=== PATIENT | female | born 1950 | race Caucasian/White ===

== ENCOUNTER 2016-11-15 00:13 | Inpatient (IN) | payer BC ==
[~2016-11-15] VITALS: Ht 157.5 cm; Wt 70.0 kg
[2016-11-15] MEDS ORDERED: SOD CHLORIDE 0.9% 1,000 ML IV ONE (00:30)
[2016-11-15 02:13] LABS: ADD SCAN DIFF NO
--- NOTE | 2016-11-15 02:20 | RADRPT ---
PROCEDURE: XR Chest. CLINICAL INDICATION: Sepsis. TECHNIQUE: Single frontal chest x-ray. COMPARISON: 10/12/2016 FINDINGS: Tracheostomy tube is unchanged. Right internal jugular central line with tip at the right atrium is unchanged. Left subclavian biventricular pacemaker is present. There are surgical clips overlying the left axilla.. Heart is mildly enlarged.. There is no CHF. There is hypoventilation with sligh t increase in bibasilar probable atelectasis.. There is no pleural effusion. There is no pneumotho rax. Bones are osteopenic.. IMPRESSION: Hypoventilation with slight increase in bibasilar atelectasis. Otherwise no change. RPTAT: HMVK .Thierry Senior MD, MD Date Time Electronically viewed and signed by .Thierry Senior MD, on 11/15/2016 02:19 .K/
[2016-11-15 02:23] LABS: BASOPHILS % 0.3 % (0.0-2.0); EOSINOPHILS # 0.1 10^3/ul (0.0-0.5); EOSINOPHILS % 0.8 % (0.0-7.0); HEMATOCRIT 26.6 % (37.0-47.0); HEMOGLOBIN 8.1 g/dl (12.0-16.0); LYMPHOCYTES # 1.9 10^3/ul (0.8-2.9); LYMPHOCYTES % 13.2 % (15.0-51.0); MEAN CORPUSCULAR HEMOGLOBIN 28.5 pg (29.0-33.0); MEAN CORPUSCULAR HGB CONC 30.5 g/dl (32.0-37.0); MEAN CORPUSCULAR VOLUME 93.7 fl (82.0-101.0); MEAN PLATELET VOLUME 11.2 fl (7.4-10.4); MONOCYTE # 1.2 10^3/ul (0.3-0.9); MONOCYTES % 8.5 % (0.0-11.0); NEUTROPHIL # 10.7 10^3/ul (1.6-7.5); NEUTROPHILS % 76.6 % (39.0-77.0); PLATELET COUNT 239 10^3/UL (140-415); RED BLOOD COUNT 2.84 10^6/ul (4.20-5.40); RED CELL DISTRIBUTION WIDTH 17.7 % (11.5-14.5)
[2016-11-15 02:31] LABS: INR 1.84; PROTIME 21.4 Sec (12.2-14.2); PT RATIO 1.7
[2016-11-15 02:32] LABS: PARTIAL THROMBOPLASTIN TIME 45.1 Sec (25.0-35.0)
[2016-11-15 02:35] LABS: ALBUMIN 3.6 g/dl (3.3-4.9)
[2016-11-15 02:36] LABS: POTASSIUM 3.5 mmol/L (3.5-5.1)
[2016-11-15 02:36] LABS: ADD UMIC YES; URINE BILIRUBIN (Dip) NEGATIVE (NEGATIVE); URINE BLOOD (Dip) 3+ (NEGATIVE); URINE COLOR YELLOW (YELLOW); URINE GLUCOSE (Dip) NEGATIVE (NEGATIVE); URINE KETONES (Dip) NEGATIVE (NEGATIVE); URINE LEUKOCYTE ESTERASE (Dip) 3+ (NEGATIVE); URINE NITRITE (Dip) NEGATIVE (NEGATIVE); URINE TOTAL PROTEIN (Dip) 4+ (NEGATIVE); URINE UROBILINOGEN (Dip) 0.2 E.U./dL (0.1-1.0)
[2016-11-15 02:38] LABS: ALBUMIN/GLOBULIN RATIO 0.94; BILIRUBIN,INDIRECT 0.1 mg/dl (0-1.1); BILIRUBIN,TOTAL 0.1 mg/dl (0.2-1.3); CREATININE 2.16 mg/dl (0.44-1.00); TOTAL PROTEIN 7.4 g/dl (6.1-8.1)
[2016-11-15 02:39] LABS: CALCIUM 8.2 mg/dl (8.4-10.2)
[2016-11-15 02:48] LABS: TROPONIN-I 0.063 ng/ml (0.00-0.12)
[2016-11-15 02:56] LABS: BACTERIA,URINE FEW; SQUAMOUS EPITHELIAL CELL,UR OCCASIONAL; URINE RBCS >50 /HPF (0)
--- NOTE | 2016-11-15 04:43 | ERA ---
ER Documentation Chief Complaint Date/Time DATE: 11/15/16 TIME: 04:41 Chief Complaint from [place],hypotension, SBP reported in the 60s,trach on vent HPI This is a 66-year-old female that is a direct admit to the intensive care unit from [facility]. Unfortunately no beds in the ICU this time, patient will be reported in the ER. Primary care doctor made aware. ROS All systems reviewed and are negative except as per history of present illness. Medications Home Meds No Active Prescriptions or Reported Meds Allergies Allergies: Coded Allergies: erythromycin base (Verified Allergy, Unknown, 11/15/16) morphine (Verified Allergy, Unknown, 11/15/16) vancomycin (Verified Allergy, Unknown, 11/15/16) PMhx/Soc History of Surgery: Yes (vinh masectomy) Hx Respiratory Disorders: Yes (ARDS, PNA) Hx Cardiac Disorders: Yes (CHF, pacemaker, 1st degree block) Hx Alcohol Use: No Hx Substance Use: No Hx Tobacco Use: No Smoking Status: Unknown if ever smoked Physical Exam Vitals Vital Signs Date Time Temp Pulse Resp B/P Pulse Ox O2 Delivery O2 Flow Rate FiO2 11/15/16 04:38 77 16 98/52 97 Trach Collar 11/15/16 03:40 80 16 103/57 90 Room Air 11/15/16 03:10 71 17 93 50 11/15/16 01:05 80 19 97 50 11/15/16 00:25 98.1 79 12 73/54 95 11/15/16 00:15 82 17 96 50 Physical Exam Const: [] Head: Atraumatic Eyes: Normal Conjunctiva ENT: Normal External Ears, Nose and Mouth. Neck: Full range of motion..~ No meningismus. Resp: Clear to auscultation bilaterally Cardio: Regular rate and rhythm, no murmurs Abd: Soft, non tender, non distended. Normal bowel sounds Skin: No petechiae or rashes Back: No midline or flank tenderness Ext: No cyanosis, or edema Neur: Awake and alert Psych: Normal Mood and Affect Result Diagram: 11/15/16 0115 11/15/16 0115 Results 24 hrs Laboratory Tests Test 11/15/16 01:15 11/15/16 01:50 White Blood Count 14.010^3/ul Red Blood Count 2.8410^6/ul Hemoglobin 8.1g/dl Hematocrit 26.6% Mean Corpuscular Volume 93.7fl Mean Corpuscular Hemoglobin 28.5pg Mean Corpuscular Hemoglobin Concent 30.5g/dl Red Cell Distribution Width 17.7% Platelet Count 16102^3/UL Mean Platelet Volume 11.2fl Neutrophils % 76.6% Lymphocytes % 13.2% Monocytes % 8.5% Eosinophils % 0.8% Basophils % 0.3% Nucleated Red Blood Cells % 0.0/100WBC Neutrophils # 10.710^3/ul Lymphocytes # 1.910^3/ul Monocytes # 1.210^3/ul Eosinophils # 0.110^3/ul Basophils # 0.010^3/ul Nucleated Red Blood Cells # 0.010^3/ul Prothrombin Time 21.4Sec Prothrombin Time Ratio 1.7 INR International Normalized Ratio 1.84 Activated Partial Thromboplast Time 45.1Sec Sodium Level 144mmol/L Potassium Level 3.5mmol/L Chloride Level 100mmol/L Carbon Dioxide Level 27mmol/L Anion Gap 21 Blood Urea Nitrogen 60mg/dl Creatinine 2.16mg/dl Glucose Level 112mg/dl Lactic Acid Level 1.0mmol/L Calcium Level 8.2mg/dl Total Bilirubin 0.1mg/dl Direct Bilirubin 0.00mg/dl Indirect Bilirubin 0.1mg/dl Aspartate Amino Transf (AST/SGOT) 22IU/L Alanine Aminotransferase (ALT/SGPT) 27IU/L Alkaline Phosphatase 86IU/L Troponin I 0.063ng/ml Total Protein 7.4g/dl Albumin 3.6g/dl Globulin 3.80g/dl Albumin/Globulin Ratio 0.94 Urine Color YELLOW Urine Clarity CLOUDY Urine pH 6.5 Urine Specific [place] 1.020 Urine Ketones NEGATIVE Urine Nitrite NEGATIVE Urine Bilirubin NEGATIVE Urine Urobilinogen 0.2 E.U./dL Urine Leukocyte Esterase 3+ Urine Microscopic RBC >50/HPF Urine Microscopic WBC >200/HPF Urine Squamous Epithelial Cells OCCASIONAL Urine Bacteria FEW Urine Hemoglobin 3+ Urine Glucose NEGATIVE% Urine Total Protein 4+ Current Medications Medications (Trade) Dose Ordered Sig/Jennifer Route PRN Reason Start Time Stop Time Status Last Admin Dose Admin Sodium Chloride (NS) 1,000 ml @ 1,000 mls/hr Q1H ONCE IV 11/15/16 00:30 11/15/16 01:29 DC 11/15/16 02:32 Procedures/MDM EKG: Rate/Rhythm: Normal Sinus Rhythm QRS, ST, T-waves: No changes consistent w/ acute ischemia Impression: No evidence of ischemia or arrhythmia Chest X-ray 1V Interpreted by me: Soft Tissue: No acute abnormalities Bones: No acute abnormalities Mediastinum/Cardiac Silhouette/Lungs: No acute abnormalities Medical decision-makin-year-old who came in initially for hypotension. Blood pressures normalized here in the emergency department. With fluid resuscitation patient is doing better. Patient voiding and ER awaiting ICU bed. Critical Care: Time: 45 minutes Treatments/Evaluations: Close monitoring and treatment of unstable vital signs, cardiorespiratory, and neurologic status, while maintaining tight balance of fluid, respiratory, and cardiac interventions. Departure Diagnosis: Primary Impression: Hypotension Qualified Code: I95.9 - Hypotension, unspecified hypotension type Condition: Serious ARMANDO JERRY November 15, 2016 04:43
--- NOTE | 2016-11-15 09:31 | QN ---
Documentation Comment The patient is no longer hypotensive and will be downgraded from ICU admission to telemetry. The patient has been in the ER for a number of hours awaiting a bed as there is no ICU bed available. VI WOODS MD November 15, 2016 09:31
[2016-11-15] MEDS ORDERED: ACETAMINOPHEN 325 MG TAB PO PRN (10:30)
[2016-11-15] MEDS ORDERED: ONDANSETRON 4 MG INJ IV PRN (10:30)
[2016-11-15] MEDS ORDERED: PIPER-TAZO 3.375 GM IV (PMX) 100 ML IVPB ONE (11:00)
[2016-11-15] MEDS ORDERED: NACL 0.9% 3 ML SYG IV SCH (11:00)
[2016-11-15] MEDS ORDERED: DILT120C65 PO (11:08)
[2016-11-15] MEDS ORDERED: METO-429 PO (11:08)
[2016-11-15] MEDS ORDERED: ACET160O41 GTB (11:09)
[2016-11-15] MEDS ORDERED: ALBU2.5V3 NEB (11:09)
[2016-11-15] MEDS ORDERED: AMIO200T2 GTB (11:10)
[2016-11-15] MEDS ORDERED: BISA5TAB6 GTB (11:11)
[2016-11-15] MEDS ORDERED: APIX2.5T GTB (11:11)
[2016-11-15] MEDS ORDERED: ESCI5TAB GTB (11:13)
[2016-11-15] MEDS ORDERED: NOVO3I SC (11:16)
[2016-11-15] MEDS ORDERED: LANT3I SC (11:20)
[2016-11-15] MEDS ORDERED: LACT1CAP57 GTB (11:21)
[2016-11-15] MEDS ORDERED: LANS30CA GTB (11:22)
[2016-11-15] MEDS ORDERED: METO-407 GTB (11:23)
[2016-11-15] MEDS ORDERED: MULTI GTB (11:24)
[2016-11-15] MEDS ORDERED: RISE150T3 GTB (11:25)
[2016-11-15] MEDS ORDERED: MYL80 GTB (11:25)
--- NOTE | 2016-11-15 12:08 | RADRPT ---
PROCEDURE: CT Brain without. CLINICAL INDICATION: Encephalopathy. TECHNIQUE: A CT of the brain was performed on multidetector high-resolution CT scanner utilizing a xial sections from the skull base through the vertex without contrast. The scan was reviewed in sof t tissue brain and high frequency resolution bone algorithm windows. Images were reviewed on a high -resolution PACS workstation. One or more the following does reduction techniques were utilized: Aut omated exposure control, adjustment of the mA/ or kV according to patient's size, or use of iterativ e reconstruction technique. The exam CTDI = 44.83 mGy and the DLP = 720.23 mGy-cm. COMPARISON: Brain CT 10/28/2016. FINDINGS: The ventricles and sulci are mildly to moderately prominent indicative of volume loss. There is no i ntracranial hemorrhage, mass effect or midline shift. No abnormal intra-axial or extra-axial fluid collections are seen. The larios/white matter differentiation is preserved. There are moderate to marked foci of hypoattenuation in the white matter, which are nonspecific in e tiology but likely reflect chronic small vessel ischemic changes. There are moderate intracranial v ascular calcifications consistent with atherosclerosis. The visualized paranasal sinuses are essenti ally clear. There is thinning of bilateral lens indicative of prior lens replacement. IMPRESSION: 1. No acute intracranial hemorrhage, transcortical infarction or mass effect. Please note MRI is mo re sensitive for detection of acute ischemia and can be obtained as clinically warranted. 2. Moderate intracranial atherosclerosis and moderate to marked chronic small vessel ischemic gonzales es. 3. Mild to moderate generalized cerebral volume loss. RPTAT: EE .Jani Gutierrez MD, Date Time Electronically viewed and signed by .Jani Gutierrez MD, MD on 11/15/2016 12:08 .N/
--- NOTE | 2016-11-15 12:09 | HP ---
DATE OF ADMISSION: 11/15/2016 CHIEF COMPLAINT: Hypotension, respiratory failure. HISTORY OF PRESENT ILLNESS: This is a 66-year-old female with a past medical history of breast canc er status post bilateral mastectomy in 1992, who initially presented to [facility] for resp iratory failure secondary to pneumonia. The patient during that hospital course, underwent trach an d PEG and was complicated with C. diff colitis and was treated with vancomycin. The patient was the n transferred to [facility] for continued care where she was treated for ARDS, pulmonary edema. T he patient went into acute renal failure, was started initially on hemodialysis. The patient develo ped critical care polyneuropathy and had an EMG which confirmed diagnosis. The patient's course was further complicated at [facility] due to bacteremia with Staph hominis and E. coli. The patient also d eveloped DIC and thrombocytopenia before being stabilized. The patient was then transferred to [facility] where she was receiving care, was being weaned off ventilatory support. The p atient was stable until yesterday where she had an episode of emesis. The patient was subsequently believed to have aspirated. She became hypotensive and she was transferred to [facility] Room for continued care. In the emergency room, the patient was given a course of bolus of normal saline with improvement of her blood pressure. The patient was not started on pressor suppor t. The patient was placed back on full ventilatory support. Upon my evaluation of the patient at this time, she is lethargic but appears to be stable. There lopez ve been no reports of hemoptysis, hematemesis or hematochezia. PAST MEDICAL HISTORY: As stated above, history of acute kidney injury, history of ventilator depend ent respiratory failure, history of dysphagia, status post PEG, history of ARDS, history of breast c ancer, history of atrial fibrillation. PAST SURGICAL HISTORY: Status post trach, status post PEG, status Perm-A-Cath placement. FAMILY HISTORY: Noncontributory. SOCIAL HISTORY: No alcohol use. MEDICATIONS: The patient's medications have been reviewed. ALLERGIES: LISTED BEEN REVIEWED. REVIEW OF SYSTEMS: Unable to do adequately review system as the patient is vent dependent. Pertine nt positives obtained by reviewing medical records, speaking to hospital staff, stated in HPI, other schneider negative. PHYSICAL EXAMINATION: VITAL SIGNS: Blood pressure is 105/58, respirations 16, pulse 72, temperature 97.8. HEENT: Head is normocephalic. NECK: Supple. HEART: Regular rate. LUNGS: Show diminished breath sounds at the base. ABDOMEN: Soft, nontender to palpation. Positive PEG. EXTREMITIES: Negative for clubbing, cyanosis, no edema. DERMATOLOGIC: No rashes. MUSCULOSKELETAL: No joint effusions. NEUROLOGIC: No change in exam. No obvious focal deficits. LABORATORY DATA: Showed sodium 144, potassium 3.5, BUN 60, creatinine 2.16. White count 14.0, hemo globin 9.1, hematocrit 26.6, platelet count 239. Chest x-ray shows a hypoventilation with increased atelectasis, lactic acid levels within normal orozco its. ASSESSMENT AND PLAN: This is a 66-year-old female who presents with: 1. Hypertension, etiology is unclear, possible volume depletion, sepsis, cardiac. Plan at this poi nt is to do a full evaluation. Will check blood cultures, urine cultures, chest x-ray. We will con tinue patient on IV fluids. Will start broad spectrum antibiotics. Will check a CT head to rule ou t cerebrovascular accident. Will monitor patient on telemetry. Will check serial troponins. We wi ll place also a consult for Infectious Disease and cardiology for evaluation. 2. Ventilator dependent respiratory failure. The patient's vent settings have been reviewed. Will continue to monitor, place a pulmonary consult for vent management. 3. Encephalopathy, acute. Etiology is likely secondary to toxic metabolic hemodynamics. A CT scan of the head will be obtained to rule out acute cerebrovascular accident. Will continue current infe ctious workup and monitor closely. 4. Dysphagia, status post percutaneous endoscopic gastrostomy. Will resume tube feeding. 5. Acute kidney injury with a history of chronic kidney disease. Patient is currently on intermitt ent hemodialysis. Will continue. No evidence of recovery at this time. 6. Critical care polyneuropathy. Will continue to monitor. 7. Atrial fibrillation, currently rate controlled. Continue medical management. Continue Eliquis. Continue beta louise. We will follow up with cardiology. 8. Anemia. Continue to monitor hemoglobin and hematocrit levels. 9. Mineral bone disease. Continue to monitor calcium and phosphorus levels. 10. History of breast cancer status post bilateral mastectomy. 11. Congestive heart failure. Continue medical management. 12. Diabetes. Continue Accu-Cheks and sliding scale. 13. History of Clostridium difficile colitis, status post treatment. 14. History of bacteremia from Staph hominis and ____. 9. History of candidemia. Patient has been reintroduced on caspofungin. Will follow up with infecti ous disease. 10. Gastrointestinal and deep venous thrombosis prophylaxis. Continue Protonix, Eliquis. Please note I spent 25 minutes of face to face time with the patient and the patient's daughter. Th e patient is FULL CODE. Dictated By: CHARLIE ESPINOSA/SEEMA Conf#: [id number] DID#: [id number]
[2016-11-15] MEDS: PIPER-TAZO 3.375 GM IV (PMX) 100 ML IVPB SCH ×2 (12:36→23:03)
--- NOTE | 2016-11-15 12:40 | CONS ---
Date/Time of Note Date/Time of Note DATE: 11/15/16 TIME: 12:35 Assessment/Plan Assessment/Plan Additional Assessment/Plan Chest x-ray was reviewed from today which is essentially clear. Current ventilator settings are AC of 10, tidal volume 500, PEEP of 0, 50% FiO2. Urinalysis is grossly positive for UTI. Assessment recommendations; 1. Patient admitted for hypotension possibly from underlying sepsis. Source likely is urinary tract infection versus line sepsis. 2. Respiratory failure, now requiring invasive mechanical ventilation. 3. Other comorbidities include chronic renal failure, possibly some element of encephalopathy, history of atrial fibrillation, currently in sinus rhythm though. 4. Hypotension with interval improvement after being given a fluid bolus. Not requiring any pressor support. Add Zyvox 600 mg IV every 12 hours. Continue current supportive measures. Further antibiotic adjustment to be done once culture results are obtained. Consultation Date/Type/Reason Admit Date/Time Date of Consultation: November 15, 2016 Type of Consultation: Pulmonary/critical care Reason for Consultation Pulmonary consultations obtained for evaluation and treatment of respiratory failure. History presenting illness; patient is a 66-year-old white lady who has been receiving care at [facility], the patient became hypotensive earlier this morning and had to be transferred to ER. The patient was given a fluid bolus with stabilization of blood pressure, not requiring any pressor support. History was obtained from medical records. Patient is unable to give any history whatsoever apparently from some element of encephalopathy. Past medical history; 1. Patient with history of respiratory failure, due to ARDS pneumonia, patient apparently was weaned off to T-piece but not requiring full ventilator support. 2. History of breast cancer, status post bilateral mastectomies. 3. History of paroxysmal atrial fibrillation, currently in sinus rhythm. 4. Chronic renal failure, on hemodialysis. 5. Anemia. 6. Post G-tube and tracheostomy. Medications; were reviewed. Allergies; R to vancomycin and erythromycin. Social history; most of any alcohol tobacco or drug abuse. Family history; not available. Occupational history; not available. Review of systems; unable to be obtained. General exam; elderly woman, on ventilator via tracheostomy somewhat arousable. Currently in no distress. Social History Smoking Status: Unknown if ever smoked Exam/Review of Systems Vital Signs Vitals Vital Signs Date Time Temp Pulse Resp B/P Pulse Ox O2 Delivery O2 Flow Rate FiO2 11/15/16 11:35 71 14 98/54 95 Mechanical Ventilator 11/15/16 07:12 97.8 11/15/16 07:00 75 Exam HEENT exam is; supple neck, tracheostomy in place. No thyromegaly. No neck bruits. Patient is edentulous. Has bilateral intraocular lens implants. No neck masses. No lymphadenopathy. No thyromegaly. Chest examination; clear to auscultation. S1-S2 audible, no murmurs. Regular rhythm. There is a pacemaker in the left chest wall. There is a hemodialysis catheter in the right subclavian area. Multiple bilateral anterior chest wall scars are present from prior mastectomies. Abdomen examination; soft, G-tube in place. Bowel sounds audible. No organomegaly. Abdomen is nondistended. Extremity exam is; no peripheral edema. Next ASSISTANT BUYER examination; patient remains minimally responsive. Results Result Diagram: 11/15/16 0115 11/15/16 0115 Results 24 hrs Laboratory Tests Test 11/15/16 01:15 11/15/16 01:50 11/15/16 04:37 11/15/16 11:00 White Blood Count 14.0 #H Red Blood Count 2.84 #L Hemoglobin 8.1 #L Hematocrit 26.6 #L Mean Corpuscular Volume 93.7 Mean Corpuscular Hemoglobin 28.5 L Mean Corpuscular Hemoglobin Concent 30.5 L Red Cell Distribution Width 17.7 H Platelet Count 239 # Mean Platelet Volume 11.2 H Neutrophils % 76.6 Lymphocytes % 13.2 L Monocytes % 8.5 Eosinophils % 0.8 Basophils % 0.3 Nucleated Red Blood Cells % 0.0 Neutrophils # 10.7 H Lymphocytes # 1.9 Monocytes # 1.2 H Eosinophils # 0.1 Basophils # 0.0 Nucleated Red Blood Cells # 0.0 Prothrombin Time 21.4 #H Prothrombin Time Ratio 1.7 INR International Normalized Ratio 1.84 Activated Partial Thromboplast Time 45.1 H Sodium Level 144 Potassium Level 3.5 Chloride Level 100 Carbon Dioxide Level 27 Anion Gap 21 H Blood Urea Nitrogen 60 #H Creatinine 2.16 H Glucose Level 112 Lactic Acid Level 1.0 1.4 1.6 Calcium Level 8.2 L Total Bilirubin 0.1 L Direct Bilirubin 0.00 Indirect Bilirubin 0.1 Aspartate Amino Transf (AST/SGOT) 22 Alanine Aminotransferase (ALT/SGPT) 27 Alkaline Phosphatase 86 Troponin I 0.063 Total Protein 7.4 Albumin 3.6 Globulin 3.80 H Albumin/Globulin Ratio 0.94 Urine Color YELLOW Urine Clarity CLOUDY Urine pH 6.5 Urine Specific [place] 1.020 Urine Ketones NEGATIVE Urine Nitrite NEGATIVE Urine Bilirubin NEGATIVE Urine Urobilinogen 0.2 E.U./dL Urine Leukocyte Esterase 3+ H Urine Microscopic RBC >50 Urine Microscopic WBC >200 Urine Squamous Epithelial Cells OCCASIONAL Urine Bacteria FEW Urine Hemoglobin 3+ H Urine Glucose NEGATIVE Urine Total Protein 4+ H Medications Medications Current Medications Pantoprazole (Protonix Tab) 40 mg DAILY@06 PO ; Start 11/16/16 at 06:00 Heparin Sodium (Porcine) 5000 unit 5,000 unit Q12 SC ; Start 11/15/16 at 21:00 Piperacillin Sod/ Tazobactam Sod (Zosyn 3.375gm/ 100 ml (Pmx)) 100 ml @ 200 mls /hr Q8 IVPB ; Start 11/15/16 at 11:30 JUSTIN LINARES November 15, 2016 12:40
--- NOTE | 2016-11-15 13:31 | CONS ---
Date/Time of Note Date/Time of Note DATE: 11/15/16 TIME: 13:31 Assessment/Plan Assessment/Plan Chief Complaint/Hosp Course asked to consult. patient seen and examined. full note to follow. thanks d/w rn and julianne sumner. d/w er nursing and family/patient. Problems: Consultation Date/Type/Reason Admit Date/Time Initial Consult Date 11/15/16 Type of Consultation: id Exam/Review of Systems Vital Signs Vitals Vital Signs Date Time Temp Pulse Resp B/P Pulse Ox O2 Delivery O2 Flow Rate FiO2 11/15/16 12:40 71 20 108/56 94 Mechanical Ventilator 11/15/16 07:12 97.8 11/15/16 07:00 75 Results Result Diagram: 11/15/16 0115 11/15/16 0115 Results 24 hrs Laboratory Tests Test 11/15/16 01:15 11/15/16 01:50 11/15/16 04:37 11/15/16 11:00 White Blood Count 14.0 #H Red Blood Count 2.84 #L Hemoglobin 8.1 #L Hematocrit 26.6 #L Mean Corpuscular Volume 93.7 Mean Corpuscular Hemoglobin 28.5 L Mean Corpuscular Hemoglobin Concent 30.5 L Red Cell Distribution Width 17.7 H Platelet Count 239 # Mean Platelet Volume 11.2 H Neutrophils % 76.6 Lymphocytes % 13.2 L Monocytes % 8.5 Eosinophils % 0.8 Basophils % 0.3 Nucleated Red Blood Cells % 0.0 Neutrophils # 10.7 H Lymphocytes # 1.9 Monocytes # 1.2 H Eosinophils # 0.1 Basophils # 0.0 Nucleated Red Blood Cells # 0.0 Prothrombin Time 21.4 #H Prothrombin Time Ratio 1.7 INR International Normalized Ratio 1.84 Activated Partial Thromboplast Time 45.1 H Sodium Level 144 Potassium Level 3.5 Chloride Level 100 Carbon Dioxide Level 27 Anion Gap 21 H Blood Urea Nitrogen 60 #H Creatinine 2.16 H Glucose Level 112 Lactic Acid Level 1.0 1.4 1.6 Calcium Level 8.2 L Total Bilirubin 0.1 L Direct Bilirubin 0.00 Indirect Bilirubin 0.1 Aspartate Amino Transf (AST/SGOT) 22 Alanine Aminotransferase (ALT/SGPT) 27 Alkaline Phosphatase 86 Troponin I 0.063 Total Protein 7.4 Albumin 3.6 Globulin 3.80 H Albumin/Globulin Ratio 0.94 Urine Color YELLOW Urine Clarity CLOUDY Urine pH 6.5 Urine Specific [place] 1.020 Urine Ketones NEGATIVE Urine Nitrite NEGATIVE Urine Bilirubin NEGATIVE Urine Urobilinogen 0.2 E.U./dL Urine Leukocyte Esterase 3+ H Urine Microscopic RBC >50 Urine Microscopic WBC >200 Urine Squamous Epithelial Cells OCCASIONAL Urine Bacteria FEW Urine Hemoglobin 3+ H Urine Glucose NEGATIVE Urine Total Protein 4+ H Medications Medications Current Medications Pantoprazole (Protonix Tab) 40 mg DAILY@06 PO ; Start 11/16/16 at 06:00 Heparin Sodium (Porcine) 5000 unit 5,000 unit Q12 SC ; Start 11/15/16 at 21:00 Piperacillin Sod/ Tazobactam Sod 100 ml @ 200 mls/hr Q8 IVPB Last administered on 11/15/16t 12:36; Admin Dose 200 MLS/HR; Start 11/15/16 at 11:30 Linezolid (Zyvox 600mg/D5W (Pmx)) 300 ml @ 300 mls/hr Q12 IVPB ; Start 11/15/16 at 14:00 RUBY ROY MD November 15, 2016 13:31
--- NOTE | 2016-11-15 14:01 | RADRPT ---
Echocardiogram Report Patient Name: CINTIA PORTILLO Gender: Female Date: 1950 Study Date: 15-Nov-2016 Apple Picker: Chaitanya Baldwin RDCS Location: 5 Ref. Physician: KIAH MAYS Quality: Adequate Procedures: Transthoracic echocardiogram with complete 2D, M-Mode, and doppler examination. Indications: Shock. 2D/M Mode Doppler Measurement Value Normal Ranges Measurement Value Normal Ranges LVIDd 2D 4.5 3.5 - 5.6 cm AV Peak Prasanna 2.1 m/sec LVIDs 2D 3.3 2.1 - 4.1 cm AV Peak PG 17.5 mmHg LVPWd 2D 1.1 0.6 - 1.1 cm AI Peak PG 15.4 mmHg IVSd 2D 1.0 0.6 - 1.1 cm AI Peak Prasanna 2.0 m/sec AoR Diam 2D 2.0 2.0 - 3.7 cm AI PHT 869.3 msec EDV 2D 93.7 cm3 LVOT Peak Prasanna 0.8 m/sec ESV 2D 37.0 cm3 LVOT Peak PG 2.6 mmHg LA Dimen 2D 4.1 2.3 - 4.0 cm MV E Peak Prasanna 0.7 m/sec MV A Peak Prasanna 0.8 m/sec MV E/A 0.8 MV Decel Time 170 msec MV Decel Dane 4 MV E/A 0.8 TR Peak Prasanna 2.6 m/sec TR Peak PG 28.9 mmHg RVSP 59.0 mmHg Findings Left Ventricle: Normal left ventricular systolic function. Normal left ventricular cavity size. Mild concentric left ventricular hypertrophy. Ejection fraction is visually estimated at 55 %. Tissue Doppler/Mitral Doppler indices are consistent with impaired relaxation (Stage I diastolic dysfunction). Right Ventricle: Normal right ventricular size. Normal right ventricular systolic function. Linear artifact in right ventricle suggestive of catheter, pacer lead, or ICD lead. Left Atrium: There is mild enlargement of left atrium. Right Atrium: The right atrium is normal in size. Mitral Valve: Mitral valve leaflets appear mildly thickened. Moderate mitral annular calcification. Trace mitral regurgitation. Aortic Valve: Mild aortic stenosis. Aortic cusps appear moderately calcified. Mild aortic valve regurgitation. Tricuspid Valve: Normal appearance of the tricuspid valve. Estimated peak PA systolic pressure 51 mmHg. There is mild to moderate tricuspid regurgitation. Pulmonic Valve: Pulmonic valve not well visualized. Pericardium: Normal pericardium with no significant pericardial effusion. Aorta: Normal aortic root. IVC: Inferior vena cava without respiratory collapse, however, patient on ventilator. Conclusions 1.Normal left ventricular systolic function. Normal left ventricular cavity size. Mild concentric left ventricular hypertrophy. Ejection fraction is visually estimated at 55 %. Tissue Doppler/Mitral Doppler indices are consistent with impaired relaxation (Stage I diastolic dysfunction). 2.There is mild enlargement of left atrium. 3.Mitral valve leaflets appear mildly thickened. Moderate mitral annular calcification. Trace mitral regurgitation. 4.Normal appearance of the tricuspid valve. Estimated peak PA systolic pressure 51 mmHg. There is mild to moderate tricuspid regurgitation. 5.Mild aortic stenosis. Aortic cusps appear moderately calcified. Mild aortic valve regurgitation. Electronically Signed By: Kiah Mays 15-Nov-2016 14:00:30 -0700 Patient Name: CINTIA PORTILLO Study Date: 15-Nov-2016 [id number]
--- NOTE | 2016-11-15 14:03 | CONS ---
DATE OF ADMISSION: 11/15/2016 DATE OF CONSULTATION: 11/15/2016 INFECTIOUS DISEASE CONSULTATION REASON FOR CONSULTATION: Antibiotic management. HISTORY OF PRESENT ILLNESS: Claudia Regalado is a 66-year-old female who comes in with hypotension a nd respiratory failure, is being seen for antibiotic management. Her past problems include: 1. History of breast cancer status post bilateral mastectomy in 1992. She initially presented to [facility] for respiratory failure secondary to pneumonia. She underwent tracheostomy and a G-tube placement complicated with C difficile colitis and was treated with oral vancomycin. She th en was transferred to [facility] for continued care. She was treated for adult respiratory distre ss syndrome and pulmonary edema. She went into acute renal failure requiring hemodialysis. She the n developed critical care polyneuropathy and an EMG which confirmed the diagnosis. Her course was a lso complicated secondary to bacteremia from Staph hominis and E coli. She also developed DIC and t hrombocytopenia before being stabilized. She was transferred to [facility] and was b eing weaned off ventilatory support and stable until yesterday the when she had an episode of em esis. She was thought to have aspirated and became hypotensive and was transferred to [facility] for continued care. She was given a bolus of normal saline with improvement o f her blood pressure, was not started on pressor support, and was put back on ventilator support, an d will be admitted to the intensive care unit. PAST MEDICAL HISTORY: Operations as outlined, status post tracheostomy, status post PEG, status pos t PermCath placement. FAMILY HISTORY: Noncontributory. SOCIAL HISTORY: She does not smoke, drink, or abuse drugs. ALLERGIES: NONE TO PENICILLIN, SULFA, OR FOODS. MEDICATIONS: Per chart. REVIEW OF SYSTEMS: Noncontributory. She is ventilator dependent. PHYSICAL EXAMINATION: GENERAL: The patient is a chronically ill-appearing female who is awake, responsive, in no acute di stress. VITAL SIGNS: Stable. She is afebrile. SKIN: Without generalized rash. HEENT: Within normal limits. NECK: Supple. Tracheostomy in place. LYMPH NODES: None palpable. CHEST: Decreased breath sounds at the bases. HEART: Without murmur or gallop. ABDOMEN: Soft, nontender without organosplenomegaly or masses. G-tube in place without exudate. EXTREMITIES: Without cyanosis, clubbing, or edema. RECTAL AND GENITAL: Deferred. NEUROLOGIC: No focal neurological abnormality. ANCILLARY LABORATORY DATA: White count was 14,000, H and H 9.1 and 26.6, platelet count 239,000. B UN and creatinine were 60 and 2.16. Chest x-ray shows hypoventilation with increased atelectasis. Lactic acid level within normal limits. In conclusion, my assessment is hypotension, probably relat ed to volume depletion, sepsis, and possibly cardiac. Blood cultures and urine cultures were done. The patient was started on linezolid and Zosyn. CT scan of the brain and echocardiogram were done. The CT scan of the brain showed no acute intracranial hemorrhage, transcortical infarction, or mas s effect. MRI is more sensitive for detection of acute ischemia, moderate intracranial atherosclero sis, and volume loss. Her chest x-ray showed hyperventilation, slight increase in bibasilar atelect asis, otherwise no change. IMPRESSION AND PLAN: The patient was begun, as noted, on linezolid and Zosyn. We will await the cu lture reports which will be done. I will dictate my findings to Dr. Ndiaye, Dr. Mays, Dr. Gaines. Dictated By: JENNY RICHEY MD, JD/SEEMA Conf#: [id number] DID#: [id number]
[2016-11-15 15:13] LABS: ADD SCAN DIFF NO
[2016-11-15 15:17] LABS: ABNORMAL IP MESSAGE 1; BASOPHIL # 0.1 10^3/ul (0.0-0.1); BASOPHILS % 0.3 % (0.0-2.0); EOSINOPHILS # 0.2 10^3/ul (0.0-0.5); EOSINOPHILS % 1.3 % (0.0-7.0); HEMATOCRIT 27.2 % (37.0-47.0); LYMPHOCYTES # 2.2 10^3/ul (0.8-2.9); LYMPHOCYTES % 13.4 % (15.0-51.0); MEAN CORPUSCULAR HEMOGLOBIN 27.7 pg (29.0-33.0); MEAN CORPUSCULAR HGB CONC 29.4 g/dl (32.0-37.0); MEAN CORPUSCULAR VOLUME 94.1 fl (82.0-101.0); MEAN PLATELET VOLUME 11.5 fl (7.4-10.4); MONOCYTE # 1.7 10^3/ul (0.3-0.9); MONOCYTES % 9.9 % (0.0-11.0); NEUTROPHIL # 12.4 10^3/ul (1.6-7.5); NEUTROPHILS % 74.3 % (39.0-77.0); PLATELET COUNT 202 10^3/UL (140-415); RED BLOOD COUNT 2.89 10^6/ul (4.20-5.40); RED CELL DISTRIBUTION WIDTH 17.9 % (11.5-14.5); WHITE BLOOD COUNT 16.7 10^3/ul (4.8-10.8)
--- NOTE | 2016-11-15 15:26 | CONS ---
DATE OF ADMISSION: 11/15/2016 DATE OF CONSULTATION: 11/15/2016 TYPE OF CONSULTATION: Cardiology. REFERRING PHYSICIAN: Dr. Ndiaye. REASON FOR CONSULTATION: Atrial fibrillation. CHIEF COMPLAINT: Hypotension. HISTORY OF PRESENT ILLNESS: Thank you for this referral. History obtained from the patient's chart , extensive review of the old chart, discussion with Dr. Ndiaye, discussion with the staff and phys hang. This is a 66-year-old unfortunate female with multiple complicated medical history who was transferred from [facility] due to hypotension. The patient has been in [facility]. She was noted overnight to be hypotensive, unresponsive to IV fluids and transferred to emergency room. In the em ergency room, she has been receiving with IV fluids. Currently, blood pressure has improved and so far has not required to be on pressors. The patient is not able to provide any history to me. Art es any chest pain or pressure to me. PAST MEDICAL HISTORY: The patient has a history of breast cancer status post bilateral mastectomy i 1992. Recently admitted to [facility] for respiratory failure secondary to pneumonia. During the hos pital course had a complicated course including Clostridium difficile colitis and tachycardia with t racheostomy and PEG placement. She was transferred to [facility] for higher level of care. Noted in ER to have CHF versus pulmonary edema, renal failure and decide to be dialyzed. She also has critical care polyneuropathy which was confirmed by EMG apparently. Has had multiple infections. SAHIL done at [facility] and review of the old chart did not show any evidence of endocarditis. She also h as history of paroxysmal atrial fibrillation on anticoagulation. She has been transferred to [facility] and to ICU this morning. SURGICAL HISTORY: Tracheostomy, PEG placement and PermCath placement. FAMILY HISTORY: No reported coronary artery disease. SOCIAL HISTORY: The patient with no alcohol use as far as we can see. ALLERGIES: 1. ERYTHROMYCIN. 2. MORPHINE. 3. VANCOMYCIN. MEDICATIONS: Per medication reconciliation, personally reviewed. REVIEW OF SYSTEMS: Unable to obtain except for above-mentioned. PHYSICAL EXAMINATION: VITAL SIGNS: Temperature 97.8, blood pressure has been in the 70s. Most recent one is 111/57, hear t rate of 71, respiratory rate of 18. HEENT: Normocephalic, atraumatic. EYES: Pupils are equal. Oropharynx very poor oral dentition. NECK: Neck is supple. CARDIOVASCULAR: Regular rate and rhythm, systolic murmur. PULMONARY: Mild diffuse rhonchi. GASTROINTESTINAL: Soft, nontender. EXTREMITIES: Trivial edema. NEUROLOGIC: Awake, appears to follow basic commands, but unable to answer my questions. LABORATORY: WBC of 14, hemoglobin 8.1, hematocrit 39. Sodium 144, potassium 3.5, BUN of 60, creati nine 2.12, glucose 112. Echocardiogram was done and was personally reviewed, which showed ejection fraction estimated about 55%. PA pressure elevated consistent with pulmonary hypertension, PA pres sure was 51 mmHg. Mild AI, mild to moderate TR noted as well. EKG showed normal sinus rhythm at th is point. ASSESSMENT AND PLAN: 1. Severe hypotension and shock, possibly at least partially related to hypovolemia, currently impr burak with IV fluids. 2. Hypoxemia respiratory failure. 3. History of paroxysmal atrial fibrillation, currently in sinus. 4. Status post bacteremia. 5. History of renal failure, intermittently has received dialysis. 6. Severe anemia. 7. History of breast carcinoma status post bilateral mastectomy. 8. Fluid overload and congestive heart failure secondary to diastolic dysfunction. 9. History of Clostridium difficile. 9. History of candidemia. RECOMMENDATIONS: Head CT was done in the ER which showed no acute intracranial hemorrhage. IV flui d has been given. Patient's blood pressure currently improved. Antibiotic is managed as per ID rec ommendation. Vent support will be continued. Off all blood pressure medication for now given her s evere hypotension. Will continue to monitor her. Electrolytes to be corrected as well. More than 38 minutes of critical care time was spent in management of this patient excluding any pro cedures. Dictated By: KIAH RAINES/SEEMA Conf#: [id number] DID#: [id number] CC: CHARLIE NDIAYE DO;*EndCC*
[2016-11-15 15:30] LABS: POTASSIUM 4.1 mmol/L (3.5-5.1)
[2016-11-15 15:33] LABS: CREATININE 2.52 mg/dl (0.44-1.00)
[2016-11-15 15:34] LABS: CALCIUM 8.3 mg/dl (8.4-10.2)
[2016-11-15 15:59] LABS: MAGNESIUM 2.2 mg/dl (1.7-2.5)
[2016-11-15] MEDS: LINEZOLID 600 MG/D5W (PMX) 300 ML IVPB SCH ×2 (16:10→23:03)
--- NOTE | 2016-11-15 16:37 | CONS ---
Date/Time of Note Date/Time of Note DATE: 11/15/16 TIME: 16:31 Assessment/Plan Assessment/Plan Chief Complaint/Hosp Course 1. Septic shock 2. vdrf 3. multiple chronic medical problems R: 1. cont. broad spect abx 2. f/u cárdenas cx 3. critical care. Problems: Consultation Date/Type/Reason Admit Date/Time Date of Consultation: November 15, 2016 Type of Consultation: id Reason for Consultation abx recommendations Referring Provider: YAYO EDGAR DO Hx of Present Illness Dear Dr. Edgar, Thanks for consulting. This is an unfortunate 66 yo female with a complicated pmh of breast ca s/p bilateral mastectomy, hx of PNA, cdiff colitis, resp failure, ards, recently at [facility] for weaning. She recently began to decompensate and was transferred to [facility] er. Patient is unable to provide any hx at this point. patient unable to provide Past Medical History as per [facility] Social History Smoking Status: Unknown if ever smoked Exam/Review of Systems Vital Signs Vitals Vital Signs Date Time Temp Pulse Resp B/P Pulse Ox O2 Delivery O2 Flow Rate FiO2 11/15/16 14:36 71 18 111/57 100 Mechanical Ventilator 11/15/16 07:12 97.8 11/15/16 07:00 75 Exam Constitutional: non-verbal Psych: confusion Head: atraumatic, normocephalic Eyes: EOMI, PERRL, nl conjunctiva, nl lids, nl sclera Respiratory: clear to auscultation, normal air movement Cardiovascular: regular rate and rhythm Gastrointestinal: non-tender, soft Results Result Diagram: 11/15/16 1510 11/15/16 1510 Results 24 hrs Laboratory Tests Test 11/15/16 01:15 11/15/16 01:50 11/15/16 04:37 11/15/16 11:00 White Blood Count 14.0 #H Red Blood Count 2.84 #L Hemoglobin 8.1 #L Hematocrit 26.6 #L Mean Corpuscular Volume 93.7 Mean Corpuscular Hemoglobin 28.5 L Mean Corpuscular Hemoglobin Concent 30.5 L Red Cell Distribution Width 17.7 H Platelet Count 239 # Mean Platelet Volume 11.2 H Neutrophils % 76.6 Lymphocytes % 13.2 L Monocytes % 8.5 Eosinophils % 0.8 Basophils % 0.3 Nucleated Red Blood Cells % 0.0 Neutrophils # 10.7 H Lymphocytes # 1.9 Monocytes # 1.2 H Eosinophils # 0.1 Basophils # 0.0 Nucleated Red Blood Cells # 0.0 Prothrombin Time 21.4 #H Prothrombin Time Ratio 1.7 INR International Normalized Ratio 1.84 Activated Partial Thromboplast Time 45.1 H Sodium Level 144 Potassium Level 3.5 Chloride Level 100 Carbon Dioxide Level 27 Anion Gap 21 H Blood Urea Nitrogen 60 #H Creatinine 2.16 H Glucose Level 112 Lactic Acid Level 1.0 1.4 1.6 Calcium Level 8.2 L Total Bilirubin 0.1 L Direct Bilirubin 0.00 Indirect Bilirubin 0.1 Aspartate Amino Transf (AST/SGOT) 22 Alanine Aminotransferase (ALT/SGPT) 27 Alkaline Phosphatase 86 Troponin I 0.063 Total Protein 7.4 Albumin 3.6 Globulin 3.80 H Albumin/Globulin Ratio 0.94 Urine Color YELLOW Urine Clarity CLOUDY Urine pH 6.5 Urine Specific [place] 1.020 Urine Ketones NEGATIVE Urine Nitrite NEGATIVE Urine Bilirubin NEGATIVE Urine Urobilinogen 0.2 E.U./dL Urine Leukocyte Esterase 3+ H Urine Microscopic RBC >50 Urine Microscopic WBC >200 Urine Squamous Epithelial Cells OCCASIONAL Urine Bacteria FEW Urine Hemoglobin 3+ H Urine Glucose NEGATIVE Urine Total Protein 4+ H Test 11/15/16 15:10 White Blood Count 16.7 H Red Blood Count 2.89 L Hemoglobin 8.0 L Hematocrit 27.2 L Mean Corpuscular Volume 94.1 Mean Corpuscular Hemoglobin 27.7 L Mean Corpuscular Hemoglobin Concent 29.4 L Red Cell Distribution Width 17.9 H Platelet Count 202 Mean Platelet Volume 11.5 H Neutrophils % 74.3 Lymphocytes % 13.4 L Monocytes % 9.9 Eosinophils % 1.3 Basophils % 0.3 Nucleated Red Blood Cells % 0.0 Neutrophils # 12.4 H Lymphocytes # 2.2 Monocytes # 1.7 H Eosinophils # 0.2 Basophils # 0.1 Nucleated Red Blood Cells # 0.0 Sodium Level 144 Potassium Level 4.1 Chloride Level 102 Carbon Dioxide Level 24 Anion Gap 22 H Blood Urea Nitrogen 69 H Creatinine 2.52 H Glucose Level 66 #L Calcium Level 8.3 L Magnesium Level 2.2 Alkaline Phosphatase 79 Medications Medications Current Medications Pantoprazole (Protonix Tab) 40 mg DAILY@06 PO ; Start 11/16/16 at 06:00 Heparin Sodium (Porcine) 5000 unit 5,000 unit Q12 SC ; Start 11/15/16 at 21:00 Piperacillin Sod/ Tazobactam Sod 100 ml @ 200 mls/hr Q8 IVPB Last administered on 11/15/16 12:36; Admin Dose 200 MLS/HR; Start 11/15/16 at 11:30 Linezolid (Zyvox 600mg/D5W (Pmx)) 300 ml @ 300 mls/hr Q12 IVPB Last administered on 11/15/16 16:10; Admin Dose 300 MLS/HR; Start 11/15/16 at 14:00 RUBY ROY MD November 15, 2016 16:37
[2016-11-15 20:18] VITALS: TEMP 98.3
[2016-11-15 21:36] VITALS: PULSE 62
[2016-11-15 22:00] VITALS: BP 92/58; PULSE 62; RESP 16
[2016-11-15 22:02] VITALS: RESP 10
[2016-11-15] MEDS: HEPARIN 5,000 UNIT/0.5 ML VIAL SC SCH (23:07)
[2016-11-15 23:46] VITALS: RESP 15
[2016-11-16] VITALS (32 sets, daily range): BP systolic 79–123; BP diastolic 43–80; PULSE 60–87; RESP 14–24; Ht 157.5 cm; Wt 70.0 kg
[2016-11-16] MEDS ORDERED: GLUCOSE GEL 15 GRAM TUBE PO PRN ×2 (01:30)
[2016-11-16] MEDS ORDERED: DEXTROSE 50% 50 ML SYRINGE IV PRN ×2 (01:30)
[2016-11-16] MEDS ORDERED: GLUCAGON 1 MG INJ IM PRN (01:30)
[2016-11-16] MEDS ORDERED: GLUCOSE GEL 15 GRAM TUBE BUCCAL PRN (01:30)
[2016-11-16] MEDS: INSULIN ASPART [NOVOLOG] 3 ML PEN SC SCH ×5 (04:55→20:28)
[2016-11-16] MEDS: LANSOPRAZOLE 30 MG CAP GTB SCH (05:21)
[2016-11-16] MEDS: PIPER-TAZO 3.375 GM IV (PMX) 100 ML IVPB SCH (05:22)
[2016-11-16] MEDS ORDERED: PANTOPRAZOLE (EC) 40 MG TAB PO SCH (06:00)
[2016-11-16 06:23] LABS: ADD SCAN DIFF NO
[2016-11-16 06:59] LABS: CALCIUM 8.3 mg/dl (8.4-10.2); CREATININE 2.75 mg/dl (0.44-1.00); MAGNESIUM 2.1 mg/dl (1.7-2.5); PHOSPHORUS 3.8 mg/dl (2.5-4.9); POTASSIUM 3.9 mmol/L (3.5-5.1)
[2016-11-16 08:04] LABS: BASOPHILS % 0.2 % (0.0-2.0); EOSINOPHILS # 0.4 10^3/ul (0.0-0.5); EOSINOPHILS % 3.2 % (0.0-7.0); HEMATOCRIT 23.4 % (37.0-47.0); HEMOGLOBIN 7.2 g/dl (12.0-16.0); LYMPHOCYTES # 1.5 10^3/ul (0.8-2.9); MEAN CORPUSCULAR HEMOGLOBIN 28.7 pg (29.0-33.0); MEAN CORPUSCULAR HGB CONC 30.8 g/dl (32.0-37.0); MEAN CORPUSCULAR VOLUME 93.2 fl (82.0-101.0); MEAN PLATELET VOLUME 11.7 fl (7.4-10.4); MONOCYTES % 8.4 % (0.0-11.0); NEUTROPHIL # 9.3 10^3/ul (1.6-7.5); NEUTROPHILS % 75.8 % (39.0-77.0); PLATELET COUNT 221 10^3/UL (140-415); RED BLOOD COUNT 2.51 10^6/ul (4.20-5.40); RED CELL DISTRIBUTION WIDTH 17.8 % (11.5-14.5); WHITE BLOOD COUNT 12.3 10^3/ul (4.8-10.8)
[2016-11-16] MEDS: LINEZOLID 600 MG/D5W (PMX) 300 ML IVPB SCH ×2 (08:44→20:17)
[2016-11-16] MEDS: HEPARIN 5,000 UNIT/0.5 ML VIAL SC SCH ×2 (08:47→20:22)
--- NOTE | 2016-11-16 09:15 | PN ---
DATE: 11/16/2016 SUBJECTIVE: The patient is stable overnight, no acute events noted. No hemoptysis, hematemesis or hematochezia. OBJECTIVE: VITAL SIGNS: Blood pressure is 95/47, respiration 19, pulse 69, temperature 98.3. HEENT: Head is normocephalic. NECK: Supple. HEART: Regular rate. LUNGS: Show diminished breath sounds at the base. ABDOMEN: Soft, nontender to palpation. Positive PEG. EXTREMITIES: Negative for clubbing, cyanosis, no edema. DERMATOLOGIC: No rashes. MUSCULOSKELETAL: No joint effusions. NEUROLOGIC: No change in exam. MEDICATIONS: The patient's medications have been reviewed. LABORATORY DATA: Showed sodium 141, potassium 2.9, chloride 103, BUN 76, creatinine 2.75. White co unt is 16.7, hemoglobin 8.0, hematocrit of 27.2, platelet count is 202. The patient's imaging studi es reviewed. Blood cultures are negative x2. ASSESSMENT AND PLAN: 1. Hypotension, etiology is unclear, possibly volume depletion, sepsis. The patient's blood pressu res have improved but remain low. At this point, will continue to monitor. 2. Sepsis, possibly from aspiration pneumonia. The patient is currently receiving antibiotic thera py. Cultures have been reviewed. Continue current treatment plan. Follow up with Infectious Disea se. 3. Acute encephalopathy. Etiology is likely toxic metabolic. The patient's CT scan shows no acute cerebrovascular accident. Will continue to monitor. 4. Ventilator dependent respiratory failure. Vent settings have been reviewed. ABG has been revie wed. Continue to follow up with pulmonary. 5. Dysphagia status post PEG tube, tube feeding. 6. Acute kidney injury on top of chronic kidney disease. Etiology is likely secondary to acute tubu lar necrosis. The patient is currently on hemodialysis. Will continue. 7. Critical care polyneuropathy. Continue to monitor. 8. Atrial fibrillation. Currently rate controlled. Continue medical management and follow up with Cardiology. 9. Anemia. Continue to monitor H and H levels. 10. Mineral bone disorder. Continue to monitor calcium and phosphorus levels. 11. History of breast cancer status post mastectomy. 12. History of congestive heart failure. Continue medical management. 13. Diabetes. Continue Accu-Cheks, insulin sliding scale. 14. History of Clostridium difficile. 15. History of candidemia. Continue to monitor. Follow up with Infectious Disease. 16. GI and deep vein thrombosis prophylaxis. Continue Protonix, Eliquis. Dictated By: CHARLIE ESPINOSA/SEEMA Conf#: [id number] DID#: [id number]
[2016-11-16] MEDS ORDERED: EPOETIN 10000 UNITS/1 ML INJ (ESRD) SC ONE (10:00)
--- NOTE | 2016-11-16 11:13 | CONS ---
Date/Time of Note Date/Time of Note DATE: 11/16/16 TIME: 11:09 Assessment/Plan Assessment/Plan Additional Assessment/Plan Ventilator settings; AC of 10, tidal volume 500, PEEP of 0, 40% FiO2. Assessment recommendations; 1. Patient admitted for sepsis from UTI possibly line sepsis as well with significant clinical improvement. 2. Chronic renal failure, on hemodialysis. 3. Chronic respiratory failure, now requiring invasive mechanical ventilation due to sepsis. 4. Advanced dementia. 5. History of cardiac arrhythmia. Status post pacemaker placement. 6. History of anemia. Continue current treatment. Further antibiotic adjustment to be done once culture results are obtained. Meanwhile I would recommend titrating down FiO2 to keep O2 saturation around 92-94%. Consultation Date/Type/Reason Admit Date/Time November 15, 2016 at 06:52 Initial Consult Date 11/15/16 Type of Consultation: Pulmonary Referring Provider: YAYO EDGAR DO 24 HR Interval Summary Free Text/Dictation Patient condition is stable. Has not required any pressor support. Has remained hemodynamically stable. No untoward events reported. General exam; elderly lady, on ventilator via tracheostomy currently in no distress. Patient remains essentially unresponsive. Exam/Review of Systems Vital Signs Vitals Vital Signs Date Time Temp Pulse Resp B/P Pulse Ox O2 Delivery O2 Flow Rate FiO2 11/16/16 09:10 69 11/16/16 08:20 16 95 50 11/16/16 07:25 98.3 95/47 11/16/16 05:04 Mechanical Ventilator Intake and Output 11/15/16 11/15/16 11/16/16 15:00 23:00 07:00 Intake Total 100 ml 850 ml Output Total 50 ml 50 ml Balance 100 ml -50 ml 800 ml Exam HEENT exam is; supple neck, no JVD. No lymphadenopathy. Midline trachea. No thyromegaly. Tracheostomy in place with clean insertion site. Chest exam is; diminished but clear vessel bilaterally. S1-S2 audible, no murmurs. There is a pacemaker. Abdomen examination; soft, G-tube in place. No organomegaly. Bowel sounds audible. Extremity examination; no peripheral edema. 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 Results Result Diagram: 11/16/16 0655 11/16/16 0540 Results 24 hrs Laboratory Tests Test 11/15/16 15:10 11/16/16 04:52 11/16/16 05:40 11/16/16 06:55 White Blood Count 16.7 H 12.3 #H Red Blood Count 2.89 L 2.51 L Hemoglobin 8.0 L 7.2 L Hematocrit 27.2 L 23.4 L Mean Corpuscular Volume 94.1 93.2 Mean Corpuscular Hemoglobin 27.7 L 28.7 L Mean Corpuscular Hemoglobin Concent 29.4 L 30.8 L Red Cell Distribution Width 17.9 H 17.8 H Platelet Count 202 221 Mean Platelet Volume 11.5 H 11.7 H Neutrophils % 74.3 75.8 Lymphocytes % 13.4 L 12.0 L Monocytes % 9.9 8.4 Eosinophils % 1.3 3.2 Basophils % 0.3 0.2 Nucleated Red Blood Cells % 0.0 0.0 Neutrophils # 12.4 H 9.3 H Lymphocytes # 2.2 1.5 Monocytes # 1.7 H 1.0 H Eosinophils # 0.2 0.4 Basophils # 0.1 0.0 Nucleated Red Blood Cells # 0.0 0.0 Sodium Level 144 141 Potassium Level 4.1 3.9 Chloride Level 102 103 Carbon Dioxide Level 24 24 Anion Gap 22 H 18 H Blood Urea Nitrogen 69 H 76 H Creatinine 2.52 H 2.75 H Glucose Level 66 #L 104 Calcium Level 8.3 L 8.3 L Magnesium Level 2.2 2.1 Alkaline Phosphatase 79 Bedside Glucose 108 Phosphorus Level 3.8 Test 11/16/16 08:43 Bedside Glucose 122 Medications Medications Current Medications Heparin Sodium (Porcine) 5000 unit 5,000 unit Q12 SC Last administered on 08:47; Admin Dose 5,000 UNIT; Start 11/15/16 at 21:00 Piperacillin Sod/ Tazobactam Sod 100 ml @ 200 mls/hr Q8 IVPB Last administered on 11/16/16 05:22; Admin Dose 200 MLS/HR; Start 11/15/16 at 11:30 Linezolid (Zyvox 600mg/D5W (Pmx)) 300 ml @ 300 mls/hr Q12 IVPB Last administered on 11/16/16 08:44; Admin Dose 300 MLS/HR; Start 11/15/16 at 14:00 Insulin Aspart (Novolog Insulin Pen) NOVOLOG *MILD* ALGORI... Q4 SC ; Start 04/25 at 05:00 Miscellaneous Information 1 ea NOTE XX ; Start 11/16/16 at 01:30 Glucose (Glutose) 15 gm Q15M PRN PO DECREASED GLUCOSE; Start 11/16/16 at 01:30 Glucose (Glutose) 22.5 gm Q15M PRN PO DECREASED GLUCOSE; Start 11/16/16 at 01: 30 Dextrose (D50w Syringe) 25 ml Q15M PRN IV DECREASED GLUCOSE; Start 11/16/16 at 01:30 Dextrose (D50w Syringe) 50 ml Q15M PRN IV DECREASED GLUCOSE; Start 11/16/16 at 01:30 Glucagon (Glucagen) 1 mg Q15M PRN IM DECREASED GLUCOSE; Start 11/16/16 at 01:30 Glucose (Glutose) 15 gm Q15M PRN BUCCAL DECREASED GLUCOSE; Start 11/16/16 at 01 :30 Lansoprazole (Prevacid) 30 mg DAILY@06 GTB Last administered on 11/16/16t 05:21 ; Admin Dose 30 MG; Start 11/16/16 at 06:00 JUSTIN LINARES November 16, 2016 11:12
[2016-11-16] MEDS: PIPER-TAZO 2.25 GM (PMX) 50 ML IVPB SCH ×2 (14:12→22:10)
[2016-11-16] MEDS ORDERED: ONDANSETRON 4 MG INJ IV PRN (23:30)
[2016-11-17] VITALS (23 sets, daily range): BP systolic 91–117; BP diastolic 52–58; PULSE 76–83; RESP 14–25
[2016-11-17] MEDS: INSULIN ASPART [NOVOLOG] 3 ML PEN SC SCH ×5 (01:00→18:00)
[2016-11-17] MEDS: ALBUTEROL/IPRATROPIUM (NEB) 3 ML AMP HHN SCH ×2 (05:00→06:16)
[2016-11-17] MEDS: LANSOPRAZOLE 30 MG CAP GTB SCH (05:02)
[2016-11-17] MEDS: PIPER-TAZO 2.25 GM (PMX) 50 ML IVPB SCH ×3 (05:28→22:29)
[2016-11-17] MEDS ORDERED: ALBUTEROL 18 GM INHALER INH PRN (06:30)
[2016-11-17 07:10] LABS: ADD SCAN DIFF NO
[2016-11-17 07:17] LABS: ABNORMAL IP MESSAGE 1; HEMATOCRIT 22.4 % (37.0-47.0); MEAN CORPUSCULAR HEMOGLOBIN 28.6 pg (29.0-33.0); MEAN CORPUSCULAR HGB CONC 30.8 g/dl (32.0-37.0); MEAN CORPUSCULAR VOLUME 92.9 fl (82.0-101.0); MEAN PLATELET VOLUME 11.8 fl (7.4-10.4); PLATELET COUNT 227 10^3/UL (140-415); RED BLOOD COUNT 2.41 10^6/ul (4.20-5.40); RED CELL DISTRIBUTION WIDTH 17.4 % (11.5-14.5); WHITE BLOOD COUNT 9.7 10^3/ul (4.8-10.8)
--- NOTE | 2016-11-17 07:17 | PN ---
DATE: 11/16/2016 CARDIOLOGY FOLLOWUP PROGRESS NOTE SUBJECTIVE: Discussed with the staff and with Dr. Ndiaye. Rhythm strip was reviewed. The patient remains in sinus rhythm. Status post tracheostomy on the vent. Blood pressure on the low but remai janessa stable off of any pressors. He is still on the vent. MEDICATIONS: Reviewed as per medication reconciliation, personally reviewed. PHYSICAL EXAMINATION: VITAL SIGNS: Temperature 98.3, heart rate of 64, blood pressure 95/47, respiration rate of 16, satu rating 95%. HEENT: Normocephalic, atraumatic. Thin female. Status post tracheostomy, on the vent. CARDIOVASCULAR: Regular rate and rhythm, systolic murmur. PULMONARY: With no wheezes anteriorly, mild rhonchi. GASTROINTESTINAL: Soft, nontender. EXTREMITIES: With no significant lower extremity edema. NEUROLOGIC: Awake, responds more appropriately now. PSYCHIATRIC: Appears to be calm and pleasant. LABORATORY: Echocardiogram was done yesterday which was personally reviewed, showed ejection fracti on about 55%. Left atrial enlargement. Mild aortic stenosis noted. Aortic cusp appeared to be mod erately calcified with mild regurgitation. Laboratory shows WBC of 12.3, hemoglobin 7.2, platelets of 221. Sodium 141, potassium 3.9, BUN of 76, creatinine 2.75, glucose 104. ASSESSMENT AND PLAN: 1. Shock/hypotension probably at least partially related to hypovolemia, plus/minus sepsis. 2. Hypoxemia and hypercapnic respiratory failure, status post tracheostomy, on the vent dependent, history of paroxysmal atrial fibrillation, currently in sinus rhythm. 3. Status post bacteremia on multiple infections. Antibiotic as per ID recommendation. 4. Renal failure, status post dialysis. 5. Severe anemia. 6. History of breast carcinoma status post bilateral mastectomy. 7. History of fluid overload and congestive heart failure secondary to diastolic dysfunction and fl uid overload, currently appeared to be stable, with history of C difficile. 8. . RECOMMENDATIONS: Antibiotic is managed as per ID's recommendation. We will continue the vent suppo rt. Dialysis as needed. Transfusion p.r.n. to be done as well. Monitor on telemetry closely. Natividad ctrolytes will be collected as needed. Dictated By: KIAH RAINES/SEEMA Conf#: [id number] DID#: [id number] CC: CHARLIE NDIAYE DO;*End*
[2016-11-17 07:29] LABS: HEMOGLOBIN 6.9 g/dl (12.0-16.0)
[2016-11-17 07:44] LABS: CALCIUM 8.5 mg/dl (8.4-10.2); CREATININE 2.05 mg/dl (0.44-1.00); PHOSPHORUS 2.6 mg/dl (2.5-4.9); POTASSIUM 3.4 mmol/L (3.5-5.1)
[2016-11-17] MEDS ORDERED: SOD CHLORIDE 0.9% 250 ML IV* ONE (08:07)
[2016-11-17] MEDS ORDERED: ONDANSETRON 4 MG INJ IV PRN (08:30)
--- NOTE | 2016-11-17 08:36 | PN ---
DATE: 11/17/2016 CARDIOLOGY FOLLOWUP SUBJECTIVE: Discussed with the staff, discussed with Dr. Ndiaye. Rhythm strip was reviewed. The patient remains in sinus rhythm. No episodes of atrial fibrillation noted. Status post tracheostom y and still on the vent. Blood pressure has remained overall stable, on the low side, but is stable though. MEDICATIONS: Reviewed as per medication reconciliation, personally reviewed. PHYSICAL EXAMINATION: VITAL SIGNS: Temperature 98.5, heart rate of 79, blood pressure 104/52, respiratory rate of 40, sat urating 98%. GENERAL: Elderly looking thin female. Appears older than stated age. HEENT: Normocephalic, atraumatic. Eyes: Pupils equal and round. NECK: Supple. Tracheostomy, on the vent. CARDIOVASCULAR: Regular rate and rhythm, systolic murmur. PULMONARY: With no wheezes heard, minimal rhonchi at the base. GASTROINTESTINAL: Soft, nontender. EXTREMITIES: With trivial edema of lower extremity. NEUROLOGIC: Awake and follows commands. PSYCHIATRIC: Appears to be calm. LABORATORY: WBC of 9.7, hemoglobin of 6.9, platelets of 227. Sodium 139, potassium 3.4, BUN of 48, creatinine 2.05, glucose of 108. ASSESSMENT AND PLAN: 1. Shock, hypotension, at least partially related to hypovolemia and anemia. Possibly sepsis as we ll. Currently, blood pressure has improved. 2. Hypoxemic ____ respiratory failure, status post tracheostomy, vent dependent. 3. History of paroxysmal atrial fibrillation, currently remains in sinus rhythm. 4. Status post bacteremia, on multiple antibiotics. 5. Renal failure, on dialysis. 6. Severe anemia. 7. History of breast carcinoma. 8. History of fluid overload, congestive heart failure, diastolic dysfunction, secondary to above, currently appears to be stable. 9. History of Clostridium difficile colitis. RECOMMENDATIONS: Hemodialysis will be continued and managed as per renal. Antibiotic is being cont inued and managed as per ID recommendations. Diabetic control will be continued. DVT prophylaxis w ill be continued. The patient is not anticoagulated due to her severe anemia. Consider transfusion as well given her marked anemia. Continue to monitor on telemetry. Vent support will be continued . Dictated By: KIAH GARCIA MD AV/SEEMA Conf#: [id number] DID#: [id number] CC: CHARLIE NDIAYE DO;*EndCC*
[2016-11-17 08:37] LABS: IRON 44 ug/dl (35-150)
[2016-11-17] MEDS: LINEZOLID 600 MG/D5W (PMX) 300 ML IVPB SCH ×2 (08:37→22:29)
[2016-11-17] MEDS: HEPARIN 5,000 UNIT/0.5 ML VIAL SC SCH ×2 (08:40→22:35)
[2016-11-17 08:46] LABS: TOTAL IRON BINDING CAPACITY 169 ug/dl (241-421)
[2016-11-17] MEDS ORDERED: POTASSIUM CHLORIDE 20 MEQ POWDER FOR ORAL SOLN GTB ONE (09:00)
--- NOTE | 2016-11-17 09:31 | PN ---
DATE: 11/17/2016 SUBJECTIVE: The patient had hemodialysis yesterday of approximately 2 liters, was stopped due to hy potension. Overnight, the patient had 1 episode of emesis. No other acute events noted. There hav e been no reports of any hemoptysis, hematemesis, or hematochezia. OBJECTIVE: VITAL SIGNS: Blood pressure 104/52, respirations 14, pulse 79, temperature 98.5. HEENT: Head is normocephalic. NECK: Supple. HEART: Regular rate. LUNGS: Show diminished breath sounds at the base. ABDOMEN: Soft, nontender to palpation, no rebound or guarding. EXTREMITIES: Negative for clubbing, cyanosis, no edema. DERMATOLOGIC: No rashes. MUSCULOSKELETAL: No joint effusions. NEUROLOGIC: No change in exam. MEDICATIONS: The patient's medications have been reviewed. LABORATORY DATA: Shows sodium 139, potassium 3.4, chloride 103, BUN 48, creatinine 2.05. White cou nt 9.7, hemoglobin 6.9, hematocrit 22.4, platelet count is 227. The patient's urine culture is posi tive for gram-negative rods. Blood culture is negative. ASSESSMENT AND PLAN: 1. Sepsis, etiology is likely multifactorial from urinary tract infection, possible aspiration pneu monia. The patient's cultures have been reviewed. Continue current antibiotic regimen and follow u p with infectious disease. 2. Hypertension. Etiology may be multifactorial secondary to sepsis, hyperkalemia. The patient wi ll receive 2 units of PRBCs today. Will minimize ultrafiltration with dialysis. Continue IV antibi otics to treat underlying sepsis. 3. Anemia. Etiology is likely from underlying chronic kidney disease; however, we will rule out ga strointestinal sources. Will check iron panel, stool for occult blood. Will transfuse 2 units of P RBCs. Will continue Epogen with hemodialysis. Monitor closely. 4. Acute encephalopathy, etiology is toxic metabolic. The patient's mental status appears to be re turning to baseline. 5. Ventilator dependent respiratory failure. Vent settings have been reviewed. ABG has been revie mon. Continue to monitor. Follow up with pulmonary. 6. Dysphagia status post percutaneous endoscopic gastrostomy. Continue tube feeding. 7. Acute kidney injury on top of chronic kidney disease, etiology secondary to acute tubular necros is. The patient is currently dialysis dependent, anticipates hemodialysis tomorrow. 8. History of critical care polyneuropathy. Continue to monitor. 9. Atrial fibrillation, currently rate controlled. Continue medical management. Follow up with ca rdiology. 10. Mineral bone disorder. Continue to monitor calcium and phosphorus levels. 11. History of breast cancer status post mastectomy. 12. History of congestive heart failure. Continue medical management. 13. Diabetes. Continue Accu-Cheks and insulin sliding scale. 14. History of congestive heart failure. 15. History of candidemia. 16. Gastrointestinal and deep venous thrombosis prophylaxis. Continue Protonix and heparin. Dictated By: CHARLIE ESPINOSA/NTS Conf#: [id number] DID#: [id number]
--- NOTE | 2016-11-17 10:42 | RADRPT ---
PROCEDURE: XR Chest. CLINICAL INDICATION: Shortness of breath. TECHNIQUE: Single frontal view. COMPARISON: 11/15/2016. FINDINGS: The tracheostomy tube, right arm PICC line, tunneled right internal jugular vein dialysis catheter, and dual lead permanent pacemaker are all once again noted and appears satisfactory. Surgical clips are present overlying both axillary regions. The heart is mildly enlarged. There is calcification in the aorta consistent with atherosclerosis. There is mild atelectasis at the lung bases, worse th an seen previously. There is no pleural effusion or pneumothorax. IMPRESSION: 1. Worse appearance of the lung bases. 2. No other change from 11/15/2016. RPTAT: QQ .Jeff Ring MD, MD Date Time Electronically viewed and signed by .Jeff Ring MD, MD on 11/17/2016 10:42 .R/
[2016-11-17] MEDS ORDERED: ALTEPLASE (CATHFLO) 2 MG INJ CATHETER ONE (12:00)
--- NOTE | 2016-11-17 12:45 | CONS ---
Date/Time of Note Date/Time of Note DATE: 11/17/16 TIME: 12:42 Consult Date/Type/Reason Admit Date/Time November 15, 2016 at 06:52 Initial Consult Date 11/15/16 Type of Consultation: Pulmonary Ordering Provider: YAYO EDGAR DO Subjective Patient appears comfortable at rest no acute distress Objective Vital Signs Date Time Temp Pulse Resp B/P Pulse Ox O2 Delivery O2 Flow Rate FiO2 11/17/16 12:00 76 11/17/16 11:12 98.6 20 105/54 98 11/17/16 11:05 50 11/16/16 22:11 Mechanical Ventilator Intake and Output 11/16/16 11/16/16 11/17/16 15:00 23:00 07:00 Intake Total 1300 ml 510 ml Output Total 300 ml Balance 1000 ml 510 ml Exam PHYSICAL EXAMINATION GENERAL: Elderly lady on mechanical ventilation appears comfortable at rest VITAL SIGNS: see below. HEENT: Pupils equal, round, and reactive to light. Tracheostomy site clean and intact. CARDIAC: S1, S2, 1/6 systolic ejection murmur CHEST: Diminished air entry bilaterally. ABDOMEN: Mildly distended. Bowel sounds present no guarding or rebound EXTREMITIES: No cyanosis, clubbing edema +1 NEUROLOGIC: Generalized weakness Results/Medications Result Diagram: 11/17/16 0630 11/17/16 0630 Results 24 hrs Laboratory Tests Test 11/16/16 13:14 11/16/16 17:47 11/16/16 20:27 11/17/16 00:58 Bedside Glucose 118 120 105 111 Test 11/17/16 04:48 11/17/16 06:30 11/17/16 08:34 11/17/16 11:57 Bedside Glucose 130 107 117 White Blood Count 9.7 # Red Blood Count 2.41 L Hemoglobin 6.9 *L Hematocrit 22.4 L Mean Corpuscular Volume 92.9 Mean Corpuscular Hemoglobin 28.6 L Mean Corpuscular Hemoglobin Concent 30.8 L Red Cell Distribution Width 17.4 H Platelet Count 227 Mean Platelet Volume 11.8 H Sodium Level 139 Potassium Level 3.4 L Chloride Level 103 Carbon Dioxide Level 27 Anion Gap 12 Blood Urea Nitrogen 48 #H Creatinine 2.05 H Glucose Level 108 Calcium Level 8.5 Phosphorus Level 2.6 Magnesium Level 2.0 Iron Level 44 Total Iron Binding Capacity 169 L Percent Iron Saturation 26 Ferritin 617.0 H Medications Current Medications Heparin Sodium (Porcine) 5000 unit 5,000 unit Q12 SC Last administered on 08:40; Admin Dose 5,000 UNIT; Start 11/15/16 at 21:00 Linezolid (Zyvox 600mg/D5W (Pmx)) 300 ml @ 300 mls/hr Q12 IVPB Last administered on 11/17/16 08:37; Admin Dose 300 MLS/HR; Start 11/15/16 at 14:00 Miscellaneous Information 1 ea NOTE XX ; Start 11/16/16 at 01:30 Glucose (Glutose) 15 gm Q15M PRN PO DECREASED GLUCOSE; Start 11/16/16 at 01:30 Glucose (Glutose) 22.5 gm Q15M PRN PO DECREASED GLUCOSE; Start 11/16/16 at 01: 30 Dextrose (D50w Syringe) 25 ml Q15M PRN IV DECREASED GLUCOSE; Start 11/16/16 at 01:30 Dextrose (D50w Syringe) 50 ml Q15M PRN IV DECREASED GLUCOSE; Start 11/16/16 at 01:30 Glucagon (Glucagen) 1 mg Q15M PRN IM DECREASED GLUCOSE; Start 11/16/16 at 01:30 Glucose 15 gm 15 gm Q15M PRN BUCCAL DECREASED GLUCOSE; Start 11/16/16 at 01:30 Piperacillin Sod/ Tazobactam Sod (Zosyn 2.25gm/ 50ml (Pmx)) 50 ml @ 200 mls/hr Q8 IVPB Last administered on 11/17/16 05:28; Admin Dose 200 MLS/HR; Start 04/25 at 14:00 Lansoprazole (Prevacid) 30 mg BID@06,18 PO ; Start 11/17/16 at 18:00 Ondansetron HCl (Zofran Inj) 4 mg Q4H PRN IV NAUSEA AND/OR VOMITING; Start 05/26 at 08:30 Insulin Aspart (Novolog Insulin Pen) NOVOLOG *MILD* ALGORI... Q6 SC ; Start 05/26 at 12:00 Assessment/Plan Chief Complaint/Hosp Course Assessment 1. Patient admitted for sepsis from UTI possibly line sepsis as well with significant clinical improvement. 2. Chronic renal failure, on hemodialysis. 3. Chronic respiratory failure, now requiring invasive mechanical ventilation due to sepsis. 4. Advanced dementia. 5. History of cardiac arrhythmia. Status post pacemaker placement. 6. History of anemia 7. Worsening hemoglobin Plan 1. Continue mechanical ventilation 2. Consider transfusion packed red blood cells during hemodialysis 3. Continue tube feeding 4. Anticipate transfer back to [facility] soon Problems: RHONDA BUENROSTRO MD, [facility] November 17, 2016 12:44
[2016-11-17 13:16] LABS: EOSINOPHILS # 0.4 10^3/ul (0.0-0.5); LYMPHOCYTES # 1.7 10^3/ul (0.8-2.9); MONOCYTE # 0.2 10^3/ul (0.3-0.9); NEUTROPHIL # 7.2 10^3/ul (1.6-7.5)
[2016-11-17] MEDS: LANSOPRAZOLE 30 MG CAP PO SCH (18:16)
[2016-11-18] VITALS (31 sets, daily range): BP systolic 100–125; BP diastolic 52–64; PULSE 77–95; RESP 15–27
[2016-11-18] MEDS: INSULIN ASPART [NOVOLOG] 3 ML PEN SC SCH ×4 (01:46→18:00)
[2016-11-18] MEDS: LANSOPRAZOLE 30 MG CAP PO SCH ×2 (06:27→18:39)
[2016-11-18] MEDS: PIPER-TAZO 2.25 GM (PMX) 50 ML IVPB SCH ×3 (06:27→21:11)
[2016-11-18 07:20] LABS: ADD SCAN DIFF NO; BASOPHIL # 0.1 10^3/ul (0.0-0.1); BASOPHILS % 0.5 % (0.0-2.0); EOSINOPHILS # 0.5 10^3/ul (0.0-0.5); EOSINOPHILS % 4.6 % (0.0-7.0); HEMATOCRIT 30.5 % (37.0-47.0); HEMOGLOBIN 9.6 g/dl (12.0-16.0); LYMPHOCYTES # 1.5 10^3/ul (0.8-2.9); LYMPHOCYTES % 14.2 % (15.0-51.0); MEAN CORPUSCULAR HEMOGLOBIN 28.9 pg (29.0-33.0); MEAN CORPUSCULAR HGB CONC 31.5 g/dl (32.0-37.0); MEAN CORPUSCULAR VOLUME 91.9 fl (82.0-101.0); MEAN PLATELET VOLUME 11.7 fl (7.4-10.4); MONOCYTE # 1.1 10^3/ul (0.3-0.9); MONOCYTES % 10.7 % (0.0-11.0); NEUTROPHIL # 7.1 10^3/ul (1.6-7.5); PLATELET COUNT 242 10^3/UL (140-415); RED BLOOD COUNT 3.32 10^6/ul (4.20-5.40); RED CELL DISTRIBUTION WIDTH 17.6 % (11.5-14.5); WHITE BLOOD COUNT 10.3 10^3/ul (4.8-10.8)
[2016-11-18 08:15] LABS: CREATININE 2.73 mg/dl (0.44-1.00); MAGNESIUM 2.1 mg/dl (1.7-2.5); PHOSPHORUS 2.6 mg/dl (2.5-4.9); POTASSIUM 3.8 mmol/L (3.5-5.1)
--- NOTE | 2016-11-18 09:20 | PN ---
DATE: 11/18/2016 SUBJECTIVE: Yesterday, the patient underwent blood transfusion, tolerated well. No other acute elvira nts noted. No hemoptysis, hematemesis or hematochezia. OBJECTIVE: VITAL SIGNS: Blood pressure 112/56, respiration 17, pulse 82, temperature 98.6. HEENT: Head is normocephalic. NECK: Supple. HEART: Regular rate. LUNGS: Show diminished breath sounds at the base. ABDOMEN: Soft, nontender to palpation. No rebound or guarding. EXTREMITIES: Negative for clubbing, cyanosis, or edema. DERMATOLOGIC: No rashes. MUSCULOSKELETAL: No joint effusions. NEUROLOGIC: No change in exam. MEDICATIONS: The patient's medications have been reviewed. LABORATORY DATA: Shows white count 10.3, hemoglobin 9.6, hematocrit 30.5, platelet count 242. Sodi um 139, potassium 3.9, chloride 103, BUN 6, creatinine 2.73. IMAGING: The patient's chest x-ray was reviewed worsening lung atelectasis at the base. The patien t's cultures have been reviewed. ASSESSMENT AND PLAN: 1. Sepsis, etiology is likely secondary to urinary tract infection, possible aspiration pneumonia. The patient is clinically improving. Continue current antibiotic regimen, follow up with infectiou s disease for further recommendations. 2. Hypotension. Etiology may be secondary to sepsis and volume depletion. The patient is status p ost blood transfusion. Blood pressures have improved. Continue to monitor. 3. Anemia. The patient is status post blood transfusion. Continue to monitor H and H levels. Con tinue Epogen with dialysis. Rule out any gastrointestinal bleed. Stool for OB is pending. 4. Acute encephalopathy, etiology is toxic metabolic. Continue to monitor. 5. Ventilator dependent respiratory failure. Vent settings have been reviewed. ABG has been revie wed. Follow up with Pulmonary. 6. Dysphagia status post PEG tube, tube feed. 7. Acute kidney injury on top of chronic kidney disease. Etiology secondary to acute tubular necro sis. The patient is currently on intermittent hemodialysis. Anticipate dialysis today after 3 hour s, 2K bath, calcium 2.5. 8. Atrial fibrillation, currently rate controlled. Continue medical management and follow up cardi ology. 9. Mineral bone disorder. Continue to monitor calcium and phosphorus levels. 10. History of critical care polyneuropathy. Continue to monitor. 11. History of breast cancer status post mastectomy. 12. History of congestive heart failure. Continue current medical management. 13. Diabetes. Continue Accu-Cheks and sliding scale. 14. History of candidemia. 14. Gastrointestinal and deep venous thrombosis prophylaxis. Continue Protonix and heparin. DISPOSITION: A [facility] evaluation has been placed and will transfer once a bed is available. Dictated By: CHARLIE ESPINOSA/NTS Conf#: [id number] DID#: [id number]
[2016-11-18] MEDS: LINEZOLID 600 MG/D5W (PMX) 300 ML IVPB SCH ×2 (12:32→21:20)
[2016-11-18] MEDS: EPOETIN 4000 UNITS/1 ML INJ (ESRD) SC SCH (12:34)
[2016-11-18] MEDS: HEPARIN 5,000 UNIT/0.5 ML VIAL SC SCH ×2 (12:36→21:12)
--- NOTE | 2016-11-18 14:54 | CONS ---
Date/Time of Note Date/Time of Note DATE: 11/18/16 TIME: 14:53 Consult Date/Type/Reason Admit Date/Time November 15, 2016 at 06:52 Initial Consult Date 11/15/16 Type of Consultation: Pulmonary Ordering Provider: YAYO EDGAR DO Subjective Patient appears comfortable this morning awake alert and oriented Objective Vital Signs Date Time Temp Pulse Resp B/P Pulse Ox O2 Delivery O2 Flow Rate FiO2 11/18/16 13:05 89 23 95 50 11/18/16 11:40 97.6 103/53 11/16/16 22:11 Mechanical Ventilator Intake and Output 11/17/16 11/17/16 11/18/16 15:00 23:00 07:00 Intake Total 300 ml 1250 ml 600 ml Output Total 101 ml Balance 300 ml 1250 ml 499 ml Exam PHYSICAL EXAMINATION GENERAL: Elderly lady on mechanical ventilation appears comfortable at rest VITAL SIGNS: see below. HEENT: Pupils equal, round, and reactive to light. Tracheostomy site clean and intact. CARDIAC: S1, S2, 1/6 systolic ejection murmur CHEST: Diminished air entry bilaterally. ABDOMEN: Mildly distended. Bowel sounds present no guarding or rebound EXTREMITIES: No cyanosis, clubbing edema +1 NEUROLOGIC: Generalized weakness Results/Medications Result Diagram: 11/18/16 0625 11/18/16 0625 Results 24 hrs Laboratory Tests Test 11/17/16 16:50 11/17/16 17:32 11/18/16 01:39 11/18/16 06:19 Stool Occult Blood POSITIVE Bedside Glucose 120 169 123 Test 11/18/16 06:25 11/18/16 12:23 White Blood Count 10.3 Red Blood Count 3.32 #L Hemoglobin 9.6 #L Hematocrit 30.5 #L Mean Corpuscular Volume 91.9 Mean Corpuscular Hemoglobin 28.9 L Mean Corpuscular Hemoglobin Concent 31.5 L Red Cell Distribution Width 17.6 H Platelet Count 242 Mean Platelet Volume 11.7 H Neutrophils % 69.0 Lymphocytes % 14.2 L Monocytes % 10.7 Eosinophils % 4.6 Basophils % 0.5 Nucleated Red Blood Cells % 0.0 Neutrophils # 7.1 Lymphocytes # 1.5 Monocytes # 1.1 H Eosinophils # 0.5 Basophils # 0.1 Nucleated Red Blood Cells # 0.0 Sodium Level 139 Potassium Level 3.8 Chloride Level 103 Carbon Dioxide Level 24 Anion Gap 16 Blood Urea Nitrogen 61 H Creatinine 2.73 H Glucose Level 116 Calcium Level 9.0 Phosphorus Level 2.6 Magnesium Level 2.1 Bedside Glucose 151 Medications Current Medications Heparin Sodium (Porcine) 5000 unit 5,000 unit Q12 SC Last administered on 12:36; Admin Dose 5,000 UNIT; Start 11/15/16 at 21:00 Linezolid (Zyvox 600mg/D5W (Pmx)) 300 ml @ 300 mls/hr Q12 IVPB Last administered on 11/18/16 12:32; Admin Dose 300 MLS/HR; Start 11/15/16 at 14:00 Miscellaneous Information 1 ea NOTE XX ; Start 11/16/16 at 01:30 Glucose (Glutose) 15 gm Q15M PRN PO DECREASED GLUCOSE; Start 11/16/16 at 01:30 Glucose (Glutose) 22.5 gm Q15M PRN PO DECREASED GLUCOSE; Start 11/16/16 at 01: 30 Dextrose (D50w Syringe) 25 ml Q15M PRN IV DECREASED GLUCOSE; Start 11/16/16 at 01:30 Dextrose (D50w Syringe) 50 ml Q15M PRN IV DECREASED GLUCOSE; Start 11/16/16 at 01:30 Glucagon (Glucagen) 1 mg Q15M PRN IM DECREASED GLUCOSE; Start 11/16/16 at 01:30 Glucose 15 gm 15 gm Q15M PRN BUCCAL DECREASED GLUCOSE; Start 11/16/16 at 01:30 Piperacillin Sod/ Tazobactam Sod (Zosyn 2.25gm/ 50ml (Pmx)) 50 ml @ 200 mls/hr Q8 IVPB Last administered on 11/18/16 06:27; Admin Dose 200 MLS/HR; Start 04/25 at 14:00 Lansoprazole (Prevacid) 30 mg BID@06,18 PO Last administered on 11/18/16 06:27 ; Admin Dose 30 MG; Start 11/17/16 at 18:00 Ondansetron HCl (Zofran Inj) 4 mg Q4H PRN IV NAUSEA AND/OR VOMITING; Start 05/26 at 08:30 Insulin Aspart (Novolog Insulin Pen) NOVOLOG *MILD* ALGORI... Q6 SC Last administered on 5/12/17at 12:38; Admin Dose 1 UNIT; Start 11/17/16 at 12:00 Assessment/Plan Chief Complaint/Hosp Course Assessment 1. Patient admitted for sepsis from UTI possibly line sepsis as well with significant clinical improvement. 2. Chronic renal failure, on hemodialysis. 3. Chronic respiratory failure, now requiring invasive mechanical ventilation due to sepsis. 4. Advanced dementia. 5. History of cardiac arrhythmia. Status post pacemaker placement. 6. History of anemia Plan 1. Continue mechanical ventilation, now for weaning 2. Status post transfusion stable 3. Continue tube feeding 4. Anticipate transfer back to [facility] soon Problems: RHONDA BU[facility]ROSTRO MD, [facility] November 18, 2016 14:53
--- NOTE | 2016-11-18 17:30 | PN ---
DATE: 11/18/2016 SUBJECTIVE: Cardiology followup note. Discussed with the staff, discussed with the patient's daugh maurizio. Rhythm strip was reviewed. The patient with no chest pain or pressure. Appears more awake an d alert, responds more appropriately today. Complains of pain in the neck at the site of the trache ostomy. MEDICATIONS: Reviewed in medication reconciliation, personally reviewed. PHYSICAL EXAMINATION: VITAL SIGNS: Temperature 98.5, heart rate of 90, blood pressure 107/52, respiration rate of 17, sat urating 99%. HEENT: Normocephalic, atraumatic. Appears in no acute distress. NECK: Status post tracheostomy, on the vent. Pupils equal and round. CARDIOVASCULAR: Regular rate and rhythm, systolic ejection murmur. PULMONARY: Anteriorly with no wheezes, minimal rhonchi at the base. GASTROINTESTINAL: Soft, nontender. EXTREMITIES: Trivial edema on lower extremities. NEUROLOGIC: Awake and responds appropriately. PSYCHIATRIC: Appears to be calm and pleasant. LABORATORY: WBC of 10.3, hemoglobin 9.6, platelets 242. Sodium 139, potassium 3.8, BUN of 61, crea tinine 2.73, glucose 116. ASSESSMENT AND PLAN: 1. Hypoxemic respiratory failure, status post tracheostomy, history of paroxysmal atrial fibrillati on, currently remains in sinus rhythm. 2. Hypotension and possible shock, currently improved. 3. Renal failure on dialysis. 4. Severe anemia, status post transfusion. 5. History of critical care polyneuropathy. 6. History of breast cancer, status post mastectomy, status post fluid overload, congestive heart f ailure with diastolic dysfunction 6. Diabetes and history of candidemia. RECOMMENDATIONS: Antibiotic is being managed as per internal medicine and ID recommendation. Antic oagulation with Eliquis has been discontinued given her marked anemia. OB stool is still pending. The patient remains in sinus rhythm now. Continue the vent support and respiratory care. Dictated By: KIAH GARCIA MD AV/SEEMA Conf#: [id number] DID#: [id number] CC: CHARLIE BUSBY DO;*EndCC*
[2016-11-19] VITALS (24 sets, daily range): BP systolic 98–114; BP diastolic 50–61; PULSE 82–93; RESP 16–28
[2016-11-19] MEDS: LANSOPRAZOLE 30 MG CAP PO SCH ×2 (05:55→17:39)
[2016-11-19] MEDS: PIPER-TAZO 2.25 GM (PMX) 50 ML IVPB SCH ×3 (05:55→21:02)
[2016-11-19] MEDS: INSULIN ASPART [NOVOLOG] 3 ML PEN SC SCH ×4 (06:00→17:36)
[2016-11-19 07:06] LABS: ADD SCAN DIFF NO
[2016-11-19 07:15] LABS: BASOPHILS % 0.3 % (0.0-2.0); EOSINOPHILS # 0.4 10^3/ul (0.0-0.5); EOSINOPHILS % 3.8 % (0.0-7.0); LYMPHOCYTES # 1.8 10^3/ul (0.8-2.9); LYMPHOCYTES % 17.4 % (15.0-51.0); MEAN CORPUSCULAR HEMOGLOBIN 28.5 pg (29.0-33.0); MEAN CORPUSCULAR VOLUME 91.8 fl (82.0-101.0); MEAN PLATELET VOLUME 11.5 fl (7.4-10.4); MONOCYTES % 9.4 % (0.0-11.0); NEUTROPHIL # 7.2 10^3/ul (1.6-7.5); NEUTROPHILS % 68.5 % (39.0-77.0); PLATELET COUNT 222 10^3/UL (140-415); RED BLOOD COUNT 3.16 10^6/ul (4.20-5.40); RED CELL DISTRIBUTION WIDTH 17.5 % (11.5-14.5); WHITE BLOOD COUNT 10.5 10^3/ul (4.8-10.8)
[2016-11-19 07:36] LABS: CALCIUM 8.9 mg/dl (8.4-10.2); CREATININE 1.85 mg/dl (0.44-1.00); PHOSPHORUS 1.9 mg/dl (2.5-4.9); POTASSIUM 3.6 mmol/L (3.5-5.1)
[2016-11-19] MEDS: LINEZOLID 600 MG/D5W (PMX) 300 ML IVPB SCH ×2 (08:57→21:02)
--- NOTE | 2016-11-19 12:44 | CONS ---
Date/Time of Note Date/Time of Note DATE: 11/19/16 TIME: 12:44 Consult Date/Type/Reason Admit Date/Time November 15, 2016 at 06:52 Initial Consult Date 11/15/16 Type of Consultation: neph Ordering Provider: YAYO EDGAR the patient underwent blood transfusion, tolerated well. No other acute events noted. No hemoptysis, hematemesis or hematochezia. OBJECTIVE: HEENT: Head is normocephalic. NECK: Supple. HEART: Regular rate. LUNGS: Show diminished breath sounds at the base. ABDOMEN: Soft, nontender to palpation. No rebound or guarding. EXTREMITIES: Negative for clubbing, cyanosis, or edema. DERMATOLOGIC: No rashes. MUSCULOSKELETAL: No joint effusions. NEUROLOGIC: No change in exam. MEDICATIONS: The patient's medications have been reviewed. Objective Vital Signs Date Time Temp Pulse Resp B/P Pulse Ox O2 Delivery O2 Flow Rate FiO2 11/19/16 11:40 75 21 99 50 11/19/16 11:17 98.2 103/61 11/16/16 22:11 Mechanical Ventilator Intake and Output 11/18/16 11/18/16 11/19/16 15:00 23:00 07:00 Intake Total 300 ml 350 ml 700 ml Output Total 2300 ml 51 ml Balance -2000 ml 350 ml 649 ml Results/Medications Result Diagram: 11/19/16 0603 11/19/16 0613 Results 24 hrs Laboratory Tests Test 11/18/16 18:00 11/18/16 23:48 11/19/16 06:01 11/19/16 06:03 Bedside Glucose 97 136 102 White Blood Count 10.5 Red Blood Count 3.16 L Hemoglobin 9.0 L Hematocrit 29.0 L Mean Corpuscular Volume 91.8 Mean Corpuscular Hemoglobin 28.5 L Mean Corpuscular Hemoglobin Concent 31.0 L Red Cell Distribution Width 17.5 H Platelet Count 222 Mean Platelet Volume 11.5 H Neutrophils % 68.5 Lymphocytes % 17.4 Monocytes % 9.4 Eosinophils % 3.8 Basophils % 0.3 Nucleated Red Blood Cells % 0.0 Neutrophils # 7.2 Lymphocytes # 1.8 Monocytes # 1.0 H Eosinophils # 0.4 Basophils # 0.0 Nucleated Red Blood Cells # 0.0 Test 11/19/16 06:13 11/19/16 12:04 Sodium Level 138 Potassium Level 3.6 Chloride Level 103 Carbon Dioxide Level 27 Anion Gap 12 Blood Urea Nitrogen 35 #H Creatinine 1.85 H Glucose Level 104 Calcium Level 8.9 Phosphorus Level 1.9 L Magnesium Level 2.0 Bedside Glucose 123 Medications Current Medications Heparin Sodium (Porcine) 5000 unit 5,000 unit Q12 SC Last administered on 21:12; Admin Dose 5,000 UNIT; Start 11/15/16 at 21:00 Linezolid (Zyvox 600mg/D5W (Pmx)) 300 ml @ 300 mls/hr Q12 IVPB Last administered on 11/19/16 08:57; Admin Dose 300 MLS/HR; Start 11/15/16 at 14:00 Miscellaneous Information 1 ea NOTE XX ; Start 11/16/16 at 01:30 Glucose (Glutose) 15 gm Q15M PRN PO DECREASED GLUCOSE; Start 11/16/16 at 01:30 Glucose (Glutose) 22.5 gm Q15M PRN PO DECREASED GLUCOSE; Start 11/16/16 at 01: 30 Dextrose (D50w Syringe) 25 ml Q15M PRN IV DECREASED GLUCOSE; Start 11/16/16 at 01:30 Dextrose (D50w Syringe) 50 ml Q15M PRN IV DECREASED GLUCOSE; Start 11/16/16 at 01:30 Glucagon (Glucagen) 1 mg Q15M PRN IM DECREASED GLUCOSE; Start 11/16/16 at 01:30 Glucose 15 gm 15 gm Q15M PRN BUCCAL DECREASED GLUCOSE; Start 11/16/16 at 01:30 Piperacillin Sod/ Tazobactam Sod (Zosyn 2.25gm/ 50ml (Pmx)) 50 ml @ 200 mls/hr Q8 IVPB Last administered on 11/19/16 05:55; Admin Dose 200 MLS/HR; Start 04/25 at 14:00 Lansoprazole (Prevacid) 30 mg BID@06,18 PO Last administered on 11/19/16 05:55 ; Admin Dose 30 MG; Start 11/17/16 at 18:00 Ondansetron HCl (Zofran Inj) 4 mg Q4H PRN IV NAUSEA AND/OR VOMITING; Start 05/26 at 08:30 Insulin Aspart (Novolog Insulin Pen) NOVOLOG *MILD* ALGORI... Q6 SC Last administered on 11/18/16t 12:38; Admin Dose 1 UNIT; Start 11/17/16 at 12:00 Assessment/Plan Chief Complaint/Hosp Course 1. Sepsis, etiology is likely secondary to urinary tract infection, possible aspiration pneumonia. The patient is clinically improving. Continue current antibiotic regimen, follow up with infectious disease for further recommendations. 2. Hypotension. Etiology may be secondary to sepsis and volume depletion. The patient is status post blood transfusion. Blood pressures have improved. Continue to monitor. 3. Anemia. The patient is status post blood transfusion. Continue to monitor H and H levels. Continue Epogen with dialysis. Rule out any gastrointestinal bleed. Stool for OB is pending. 4. Acute encephalopathy, etiology is toxic metabolic. Continue to monitor. 5. Ventilator dependent respiratory failure. Vent settings have been reviewed. ABG has been reviewed. Follow up with Pulmonary. 6. Dysphagia status post PEG tube, tube feed. 7. Acute kidney injury on top of chronic kidney disease. Etiology secondary to acute tubular necrosis. The patient is currently on intermittent hemodialysis. Anticipate dialysis today after 3 hours, 2K bath, calcium 2.5. 8. Atrial fibrillation, currently rate controlled. Continue medical management and follow up cardiology. 9. Mineral bone disorder. Continue to monitor calcium and phosphorus levels. 10. History of critical care polyneuropathy. Continue to monitor. 11. History of breast cancer status post mastectomy. 12. History of congestive heart failure. Continue current medical management. 13. Diabetes. Continue Accu-Cheks and sliding scale. 14. History of candidemia. 14. Gastrointestinal and deep venous thrombosis prophylaxis. Continue Protonix and heparin. Problems: TAMMIE HDZ MD November 19, 2016 12:44
[2016-11-19] MEDS: HEPARIN 5,000 UNIT/0.5 ML VIAL SC SCH ×2 (12:58→21:09)
--- NOTE | 2016-11-19 16:04 | CONS ---
Date/Time of Note Date/Time of Note DATE: 11/19/16 TIME: 16:02 Consult Date/Type/Reason Admit Date/Time November 15, 2016 at 06:52 Initial Consult Date 11/15/16 Type of Consultation: Pulm Ordering Provider: YAYO EDGAR DO Subjective No events. Objective Vital Signs Date Time Temp Pulse Resp B/P Pulse Ox O2 Delivery O2 Flow Rate FiO2 11/19/16 15:29 98.4 87 18 111/54 93 11/19/16 13:23 50 11/16/16 22:11 Mechanical Ventilator Intake and Output 11/18/16 11/18/16 11/19/16 15:00 23:00 07:00 Intake Total 300 ml 350 ml 700 ml Output Total 2300 ml 51 ml Balance -2000 ml 350 ml 649 ml Exam HEENT: Pupils equal, round, and reactive to light. Tracheostomy site clean and intact. CARDIAC: S1, S2, 1/6 systolic ejection murmur CHEST: Clear ABDOMEN: Mildly distended. Bowel sounds present no guarding or rebound EXTREMITIES: No cyanosis, clubbing edema +1 Results/Medications Result Diagram: 11/19/16 0603 11/19/16 0613 Results 24 hrs Laboratory Tests Test 11/18/16 18:00 11/18/16 23:48 11/19/16 06:01 11/19/16 06:03 Bedside Glucose 97 136 102 White Blood Count 10.5 Red Blood Count 3.16 L Hemoglobin 9.0 L Hematocrit 29.0 L Mean Corpuscular Volume 91.8 Mean Corpuscular Hemoglobin 28.5 L Mean Corpuscular Hemoglobin Concent 31.0 L Red Cell Distribution Width 17.5 H Platelet Count 222 Mean Platelet Volume 11.5 H Neutrophils % 68.5 Lymphocytes % 17.4 Monocytes % 9.4 Eosinophils % 3.8 Basophils % 0.3 Nucleated Red Blood Cells % 0.0 Neutrophils # 7.2 Lymphocytes # 1.8 Monocytes # 1.0 H Eosinophils # 0.4 Basophils # 0.0 Nucleated Red Blood Cells # 0.0 Test 11/19/16 06:13 11/19/16 12:04 Sodium Level 138 Potassium Level 3.6 Chloride Level 103 Carbon Dioxide Level 27 Anion Gap 12 Blood Urea Nitrogen 35 #H Creatinine 1.85 H Glucose Level 104 Calcium Level 8.9 Phosphorus Level 1.9 L Magnesium Level 2.0 Bedside Glucose 123 Medications Current Medications Heparin Sodium (Porcine) 5000 unit 5,000 unit Q12 SC Last administered on 21:12; Admin Dose 5,000 UNIT; Start 11/15/16 at 21:00 Linezolid (Zyvox 600mg/D5W (Pmx)) 300 ml @ 300 mls/hr Q12 IVPB Last administered on 11/19/16 08:57; Admin Dose 300 MLS/HR; Start 11/15/16 at 14:00 Miscellaneous Information 1 ea NOTE XX ; Start 11/16/16 at 01:30 Glucose (Glutose) 15 gm Q15M PRN PO DECREASED GLUCOSE; Start 11/16/16 at 01:30 Glucose (Glutose) 22.5 gm Q15M PRN PO DECREASED GLUCOSE; Start 11/16/16 at 01: 30 Dextrose (D50w Syringe) 25 ml Q15M PRN IV DECREASED GLUCOSE; Start 11/16/16 at 01:30 Dextrose (D50w Syringe) 50 ml Q15M PRN IV DECREASED GLUCOSE; Start 11/16/16 at 01:30 Glucagon (Glucagen) 1 mg Q15M PRN IM DECREASED GLUCOSE; Start 11/16/16 at 01:30 Glucose 15 gm 15 gm Q15M PRN BUCCAL DECREASED GLUCOSE; Start 11/16/16 at 01:30 Piperacillin Sod/ Tazobactam Sod (Zosyn 2.25gm/ 50ml (Pmx)) 50 ml @ 200 mls/hr Q8 IVPB Last administered on 11/19/16 13:30; Admin Dose 200 MLS/HR; Start 04/25 at 14:00 Lansoprazole (Prevacid) 30 mg BID@06,18 PO Last administered on 11/19/16 05:55 ; Admin Dose 30 MG; Start 11/17/16 at 18:00 Ondansetron HCl (Zofran Inj) 4 mg Q4H PRN IV NAUSEA AND/OR VOMITING; Start 05/26 at 08:30 Insulin Aspart (Novolog Insulin Pen) NOVOLOG *MILD* ALGORI... Q6 SC Last administered on 11/18/16 12:38; Admin Dose 1 UNIT; Start 11/17/16 at 12:00 Assessment/Plan Additional Assessment/Plan IMP: 1. Urosepsis. 2. Chronic renal failure, on hemodialysis. 3. Chronic respiratory failure 4. Advanced dementia. 5. Status post pacemaker placement. RECS: 1. Continue mechanical ventilation, now for weaning 2. TF/Free H2O 3. BD/CPT LEIDA LINARES MD November 19, 2016 16:04
[2016-11-20] VITALS (24 sets, daily range): BP systolic 106–117; BP diastolic 55–86; PULSE 98–114; RESP 16–35
[2016-11-20] MEDS: INSULIN ASPART [NOVOLOG] 3 ML PEN SC SCH ×4 (00:33→17:35)
[2016-11-20] MEDS: PIPER-TAZO 2.25 GM (PMX) 50 ML IVPB SCH ×3 (05:46→22:02)
[2016-11-20] MEDS: LANSOPRAZOLE 30 MG CAP PO SCH ×2 (05:47→17:32)
[2016-11-20] MEDS: HEPARIN 5,000 UNIT/0.5 ML VIAL SC SCH ×2 (09:00→20:41)
[2016-11-20] MEDS: LINEZOLID 600 MG/D5W (PMX) 300 ML IVPB SCH ×2 (09:34→20:40)
--- NOTE | 2016-11-20 09:53 | CONS ---
Date/Time of Note Date/Time of Note DATE: 11/20/16 TIME: 09:52 Consult Date/Type/Reason Admit Date/Time November 15, 2016 at 06:52 Initial Consult Date 11/15/16 Type of Consultation: im Ordering Provider: YAYO EDGAR the patient underwent blood transfusion 2 days ago, tolerated well. No other acute events noted. No hemoptysis, hematemesis or hematochezia. awaiting transfer back to [place]. OBJECTIVE: HEENT: Head is normocephalic. NECK: Supple. HEART: Regular rate. LUNGS: Show diminished breath sounds at the base. ABDOMEN: Soft, nontender to palpation. No rebound or guarding. EXTREMITIES: Negative for clubbing, cyanosis, or edema. DERMATOLOGIC: No rashes. MUSCULOSKELETAL: No joint effusions. NEUROLOGIC: No change in exam. MEDICATIONS: The patient's medications have been reviewed. Objective Vital Signs Date Time Temp Pulse Resp B/P Pulse Ox O2 Delivery O2 Flow Rate FiO2 11/20/16 08:21 104 11/20/16 07:19 31 98 50 11/20/16 07:10 98.4 106/86 11/16/16 22:11 Mechanical Ventilator Intake and Output 11/19/16 11/19/16 11/20/16 15:00 23:00 07:00 Intake Total 1050 ml 700 ml Output Total 52 ml 60 ml Balance 998 ml 640 ml Results/Medications Result Diagram: 11/19/16 0603 11/19/16 0613 Results 24 hrs Laboratory Tests Test 11/19/16 12:04 11/19/16 17:36 11/20/16 00:27 11/20/16 05:45 Bedside Glucose 123 123 158 137 Medications Current Medications Heparin Sodium (Porcine) 5000 unit 5,000 unit Q12 SC Last administered on 21:09; Admin Dose 5,000 UNIT; Start 11/15/16 at 21:00 Linezolid (Zyvox 600mg/D5W (Pmx)) 300 ml @ 300 mls/hr Q12 IVPB Last administered on 11/20/16 09:34; Admin Dose 300 MLS/HR; Start 11/15/16 at 14:00 Miscellaneous Information 1 ea NOTE XX ; Start 11/16/16 at 01:30 Glucose (Glutose) 15 gm Q15M PRN PO DECREASED GLUCOSE; Start 11/16/16 at 01:30 Glucose (Glutose) 22.5 gm Q15M PRN PO DECREASED GLUCOSE; Start 11/16/16 at 01: 30 Dextrose (D50w Syringe) 25 ml Q15M PRN IV DECREASED GLUCOSE; Start 11/16/16 at 01:30 Dextrose (D50w Syringe) 50 ml Q15M PRN IV DECREASED GLUCOSE; Start 11/16/16 at 01:30 Glucagon (Glucagen) 1 mg Q15M PRN IM DECREASED GLUCOSE; Start 11/16/16 at 01:30 Glucose 15 gm 15 gm Q15M PRN BUCCAL DECREASED GLUCOSE; Start 11/16/16 at 01:30 Piperacillin Sod/ Tazobactam Sod (Zosyn 2.25gm/ 50ml (Pmx)) 50 ml @ 200 mls/hr Q8 IVPB Last administered on 11/20/16 05:46; Admin Dose 200 MLS/HR; Start 04/25 at 14:00 Lansoprazole (Prevacid) 30 mg BID@06,18 PO Last administered on 11/20/16 05:47 ; Admin Dose 30 MG; Start 11/17/16 at 18:00 Ondansetron HCl (Zofran Inj) 4 mg Q4H PRN IV NAUSEA AND/OR VOMITING; Start 05/26 at 08:30 Insulin Aspart (Novolog Insulin Pen) NOVOLOG *MILD* ALGORI... Q6 SC Last administered on 11/20/16 00:33; Admin Dose 1 UNIT; Start 11/17/16 at 12:00 Assessment/Plan Chief Complaint/Hosp Course 1. Sepsis, etiology is likely secondary to urinary tract infection, possible aspiration pneumonia. The patient is clinically improving. Continue current antibiotic regimen, follow up with infectious disease for further recommendations. 2. Hypotension. Etiology may be secondary to sepsis and volume depletion. The patient is status post blood transfusion. Blood pressures have improved. Continue to monitor. 3. Anemia. The patient is status post blood transfusion. Continue to monitor H and H levels. Continue Epogen with dialysis. Rule out any gastrointestinal bleed. Stool for OB is pending. 4. Acute encephalopathy, etiology is toxic metabolic. Continue to monitor. 5. Ventilator dependent respiratory failure. Vent settings have been reviewed. ABG has been reviewed. Follow up with Pulmonary. 6. Dysphagia status post PEG tube, tube feed. 7. Acute kidney injury on top of chronic kidney disease. Etiology secondary to acute tubular necrosis. The patient is currently on intermittent hemodialysis. Anticipate dialysis today after 3 hours, 2K bath, calcium 2.5. 8. Atrial fibrillation, currently rate controlled. Continue medical management and follow up cardiology. 9. Mineral bone disorder. Continue to monitor calcium and phosphorus levels. 10. History of critical care polyneuropathy. Continue to monitor. 11. History of breast cancer status post mastectomy. 12. History of congestive heart failure. Continue current medical management. 13. Diabetes. Continue Accu-Cheks and sliding scale. 14. History of candidemia. 14. Gastrointestinal and deep venous thrombosis prophylaxis. Continue Protonix and heparin. Problems: TAMMIE HDZ MD November 20, 2016 09:53
--- NOTE | 2016-11-20 15:01 | CONS ---
Date/Time of Note Date/Time of Note DATE: 11/20/16 TIME: 15:00 Consult Date/Type/Reason Admit Date/Time November 15, 2016 at 06:52 Initial Consult Date 11/15/16 Type of Consultation: Pulm Ordering Provider: YAYO EDGAR DO Subjective No events. On vent. Objective Vital Signs Date Time Temp Pulse Resp B/P Pulse Ox O2 Delivery O2 Flow Rate FiO2 11/20/16 12:21 110 11/20/16 11:45 29 98 50 11/20/16 11:13 97.8 112/65 11/16/16 22:11 Mechanical Ventilator Intake and Output 11/19/16 11/19/16 11/20/16 15:00 23:00 07:00 Intake Total 1050 ml 700 ml Output Total 52 ml 60 ml Balance 998 ml 640 ml Exam HEENT: Pupils equal, round, and reactive to light. Tracheostomy site clean and intact. CARDIAC: S1, S2, 1/6 systolic ejection murmur CHEST: Clear ABDOMEN: Mildly distended. Bowel sounds present no guarding or rebound EXTREMITIES: No cyanosis, clubbing edema +1 Results/Medications Result Diagram: 11/19/16 0603 11/19/16 0613 Results 24 hrs Laboratory Tests Test 11/19/16 17:36 11/20/16 00:27 11/20/16 05:45 11/20/16 11:42 Bedside Glucose 123 158 137 164 Medications Current Medications Heparin Sodium (Porcine) 5000 unit 5,000 unit Q12 SC Last administered on 21:09; Admin Dose 5,000 UNIT; Start 11/15/16 at 21:00 Linezolid (Zyvox 600mg/D5W (Pmx)) 300 ml @ 300 mls/hr Q12 IVPB Last administered on 11/20/16 09:34; Admin Dose 300 MLS/HR; Start 11/15/16 at 14:00 Miscellaneous Information 1 ea NOTE XX ; Start 11/16/16 at 01:30 Glucose (Glutose) 15 gm Q15M PRN PO DECREASED GLUCOSE; Start 11/16/16 at 01:30 Glucose (Glutose) 22.5 gm Q15M PRN PO DECREASED GLUCOSE; Start 11/16/16 at 01: 30 Dextrose (D50w Syringe) 25 ml Q15M PRN IV DECREASED GLUCOSE; Start 11/16/16 at 01:30 Dextrose (D50w Syringe) 50 ml Q15M PRN IV DECREASED GLUCOSE; Start 11/16/16 at 01:30 Glucagon (Glucagen) 1 mg Q15M PRN IM DECREASED GLUCOSE; Start 11/16/16 at 01:30 Glucose 15 gm 15 gm Q15M PRN BUCCAL DECREASED GLUCOSE; Start 11/16/16 at 01:30 Piperacillin Sod/ Tazobactam Sod (Zosyn 2.25gm/ 50ml (Pmx)) 50 ml @ 200 mls/hr Q8 IVPB Last administered on 11/20/16 14:22; Admin Dose 200 MLS/HR; Start 04/25 at 14:00 Lansoprazole (Prevacid) 30 mg BID@06,18 PO Last administered on 11/20/16 05:47 ; Admin Dose 30 MG; Start 11/17/16 at 18:00 Ondansetron HCl (Zofran Inj) 4 mg Q4H PRN IV NAUSEA AND/OR VOMITING; Start 05/26 at 08:30 Insulin Aspart (Novolog Insulin Pen) NOVOLOG *MILD* ALGORI... Q6 SC Last administered on 11/20/16 11:48; Admin Dose 1 UNIT; Start 11/17/16 at 12:00 Assessment/Plan Additional Assessment/Plan IMP: 1. Urosepsis. 2. Chronic renal failure, on hemodialysis. 3. Chronic respiratory failure/Vent 4. Advanced dementia. 5. Status post pacemaker placement. RECS: 1. Continue vent support 2. TF/Free H2O 3. BD/CPT 4. Abx LEIDA LINARES MD November 20, 2016 15:01
[2016-11-21] VITALS (33 sets, daily range): BP systolic 90–145; BP diastolic 49–69; PULSE 75–124; RESP 17–31
[2016-11-21] MEDS: LANSOPRAZOLE 30 MG CAP PO SCH ×2 (05:53→17:03)
[2016-11-21] MEDS: PIPER-TAZO 2.25 GM (PMX) 50 ML IVPB SCH ×3 (05:54→22:36)
[2016-11-21] MEDS: INSULIN ASPART [NOVOLOG] 3 ML PEN SC SCH ×4 (06:00→17:36)
[2016-11-21] MEDS: LINEZOLID 600 MG/D5W (PMX) 300 ML IVPB SCH ×2 (08:39→21:02)
[2016-11-21] MEDS: HEPARIN 5,000 UNIT/0.5 ML VIAL SC SCH ×2 (08:51→21:10)
--- NOTE | 2016-11-21 10:31 | PN ---
DATE: 11/21/2016 SUBJECTIVE: The patient was noted to have a fever overnight, although not formally documented. No o ther acute events noted. No hemoptysis, hemetemesis, hematochezia. OBJECTIVE: VITAL SIGNS: Blood pressure 112/55, respiration 18, pulse 92, temperature 98.8. HEENT: Head is normocephalic. NECK: Supple. HEART: Regular rate. LUNGS: Show diminished breath sounds at the base. ABDOMEN: Soft, nontender to palpation. No rebound or guarding. EXTREMITIES: Negative for clubbing, cyanosis, no edema. DERMATOLOGIC: No rashes. MUSCULOSKELETAL: No joint effusions. NEUROLOGIC: No change in exam. MEDICATIONS: The patient's medications have been reviewed. LABORATORY DATA: Has been reviewed. No new labs. Cultures have been reviewed. ASSESSMENT AND PLAN: 1. Sepsis, etiology is likely secondary to urinary tract infection, possible aspiration pneumonia. The patient is currently on broad spectrum antibiotics. Will continue to monitor. Follow up with Infectious Disease. 2. Anemia. The patient's etiology is likely due to chronic disease, questionable gastrointestinal bleed. The patient's stool for occult blood was positive; however, there has been no gross evidence of active bleeding. Will continue to monitor closely. Hemoglobin levels have been stable. 3. Acute encephalopathy, toxic metabolic. Mental status improving. Continue to monitor. 4. Ventilatory dependent respiratory failure. Vent settings have been reviewed. ABG has been revi ewed. Continue to monitor. Follow up with Pulmonary. 5. Dysphagia. Status post PEG tube, tube feeding. 6. Acute kidney injury on top of chronic kidney disease. Etiology is secondary to acute tubular ne crosis. The patient is currently dialysis dependent. Will continue dialysis 3 to 4 times weekly, m onitor for signs of renal recovery. 7. Atrial fibrillation, rate controlled. Continue current medical management. 8. Mineral bone disorder. Continue to monitor calcium and phosphorus levels. 9. History of critical care polyneuropathy. Continue to monitor. 10. History of breast cancer status post mastectomy. 11. Congestive heart failure. Continue medical management. 12. Diabetes. Continue Accu-Cheks and sliding scale. 13. History of candidemia. 14. Gastrointestinal and deep venous thrombosis prophylaxis. Continue Protonix and heparin. DISPOSITION: Attempting to find placement, either at [facility] or a subacute facility. Dictated By: CHARLIE ESPINOSA/SEEMA Conf#: [id number] DID#: [id number]
[2016-11-21] MEDS ORDERED: DIGOXIN 500 MCG INJ IV ONE (11:00)
--- NOTE | 2016-11-21 13:45 | CONS ---
Date/Time of Note Date/Time of Note DATE: 11/21/16 TIME: 13:43 Consult Date/Type/Reason Admit Date/Time November 15, 2016 at 06:52 Initial Consult Date 11/15/16 Type of Consultation: Pulm Ordering Provider: YAYO EDGAR DO Subjective Awake alert comfortable. Objective Vital Signs Date Time Temp Pulse Resp B/P Pulse Ox O2 Delivery O2 Flow Rate FiO2 11/21/16 13:09 100 11/21/16 11:31 98.4 18 107/56 95 11/21/16 11:05 50 11/21/16 10:40 Mechanical Ventilator Intake and Output 11/20/16 11/20/16 11/21/16 15:00 23:00 07:00 Intake Total 1550 ml 800 ml Output Total 72 ml 150 ml Balance 1478 ml 650 ml Exam PHYSICAL EXAMINATION GENERAL: Elderly lady on mechanical ventilation appears comfortable at rest VITAL SIGNS: see below. HEENT: Pupils equal, round, and reactive to light. Tracheostomy site clean and intact. CARDIAC: S1, S2, 1/6 systolic ejection murmur CHEST: Diminished air entry bilaterally. ABDOMEN: Mildly distended. Bowel sounds present no guarding or rebound EXTREMITIES: No cyanosis, clubbing edema +1 NEUROLOGIC: Generalized weakness Results/Medications Result Diagram: 11/19/16 0603 11/19/16 0613 Results 24 hrs Laboratory Tests Test 11/20/16 17:27 11/21/16 00:57 11/21/16 05:52 11/21/16 11:15 Bedside Glucose 142 135 128 154 Medications Current Medications Heparin Sodium (Porcine) 5000 unit 5,000 unit Q12 SC Last administered on 08:51; Admin Dose 5,000 UNIT; Start 11/15/16 at 21:00 Linezolid (Zyvox 600mg/D5W (Pmx)) 300 ml @ 300 mls/hr Q12 IVPB Last administered on 11/21/16 08:39; Admin Dose 300 MLS/HR; Start 11/15/16 at 14:00 Miscellaneous Information 1 ea NOTE XX ; Start 11/16/16 at 01:30 Glucose (Glutose) 15 gm Q15M PRN PO DECREASED GLUCOSE; Start 11/16/16 at 01:30 Glucose (Glutose) 22.5 gm Q15M PRN PO DECREASED GLUCOSE; Start 11/16/16 at 01: 30 Dextrose (D50w Syringe) 25 ml Q15M PRN IV DECREASED GLUCOSE; Start 11/16/16 at 01:30 Dextrose (D50w Syringe) 50 ml Q15M PRN IV DECREASED GLUCOSE; Start 11/16/16 at 01:30 Glucagon (Glucagen) 1 mg Q15M PRN IM DECREASED GLUCOSE; Start 11/16/16 at 01:30 Glucose 15 gm 15 gm Q15M PRN BUCCAL DECREASED GLUCOSE; Start 11/16/16 at 01:30 Piperacillin Sod/ Tazobactam Sod (Zosyn 2.25gm/ 50ml (Pmx)) 50 ml @ 200 mls/hr Q8 IVPB Last administered on 11/21/16 05:54; Admin Dose 200 MLS/HR; Start 04/25 at 14:00 Lansoprazole (Prevacid) 30 mg BID@06,18 PO Last administered on 11/21/16 05:53 ; Admin Dose 30 MG; Start 11/17/16 at 18:00 Ondansetron HCl (Zofran Inj) 4 mg Q4H PRN IV NAUSEA AND/OR VOMITING; Start 05/26 at 08:30 Insulin Aspart (Novolog Insulin Pen) NOVOLOG *MILD* ALGORI... Q6 SC Last administered on 11/21/16 11:26; Admin Dose 1 UNIT; Start 11/17/16 at 12:00 Acetaminophen (Tylenol Liquid) 650 mg Q4H PRN GTB PAIN AND OR ELEVATED TEMP; Start 11/21/16 at 09:00 Assessment/Plan Chief Complaint/Hosp Course Assessment 1. Patient admitted for sepsis from UTI possibly line sepsis, improved. 2. Chronic renal failure, on hemodialysis. 3. Chronic respiratory failure, now requiring invasive mechanical ventilation due to sepsis. 4. Advanced dementia. 5. History of cardiac arrhythmia. Status post pacemaker placement. 6. History of anemia Plan 1. Continue mechanical ventilation, now for weaning 2. Status post transfusion stable 3. Continue tube feeding 4. dc subacute Problems: RHONDA BUENROSTRO MD, [facility] November 21, 2016 13:45
--- NOTE | 2016-11-21 15:32 | PN ---
DATE: 11/21/2016 CARDIOLOGY FOLLOWUP SUBJECTIVE: Discussed with the staff, discussed with the patient's daughter. Rhythm strip was revi ewed. The patient remains in atrial fibrillation with rapid ventricular response. Converted back t o sinus rhythm. Denies any chest pain or palpitations to me. Still remains on the vent. MEDICATIONS: Reviewed which include: 1. Insulin. 2. Zosyn. 3. Linezolid. 4. Heparin subQ. PHYSICAL EXAMINATION: VITAL SIGNS: Temperature 98.4, heart rate of 100, blood pressure of 107/56, respiration rate of 25, saturating 97%. HEENT: Normocephalic, atraumatic. NECK: Status post tracheostomy, on the vent. CARDIOVASCULAR: Regular rate and rhythm, systolic murmur. PULMONARY: Anteriorly with no wheezes, mild rhonchi. GASTROINTESTINAL: Soft, nontender. EXTREMITIES: With trivial lower extremity edema. NEUROLOGIC: Awake, responds appropriately. PSYCHIATRIC: Appears to be calm and pleasant. LABORATORY: WBC of 10.5, hemoglobin 9, platelets of 222. Sodium 138, potassium 3.6, BUN of 35, cre atinine 1.85 as of 2 days ago. ASSESSMENT AND PLAN: 1. Paroxysmal atrial fibrillation with rapid ventricular response, converted back to sinus rhythm s pontaneously. 2. Status post sepsis, urinary tract infection, possible aspiration, currently slowly improving. 3. Respiratory failure, status post tracheostomy, vent dependent. 4. Encephalopathy, is improving. 5. Renal failure, on dialysis now. 6. History of critical care polyneuropathy. 7. Diabetes, on insulin. 8. History of multiple infections. 9. Anemia. RECOMMENDATIONS: Antibiotic will be continued. Digoxin will be on as-needed basis only. Electroly shelia will be checked and adjusted. We will continue to closely monitor on telemetry, respiratory car e and ventilator will be continued and managed as per pulmonary. Dictated By: KIAH RAINES/SEEMA Conf#: [id number] DID#: [id number] CC: CHARLIE BUSBY DO;*EndCC*
[2016-11-21] MEDS: EPOETIN 4000 UNITS/1 ML INJ (ESRD) SC SCH (17:04)
--- NOTE | 2016-11-21 20:24 | RADRPT ---
Vent Rate: 140 bpm RR Interval: 0 msec ID Interval: 0 msec QRS Duration: 104 msec QT Interval: 334 msec QTC Interval: 509 msec P-R-T [place]: 0 - -36 - 0 degrees Atrial fibrillation with rapid ventricular response Left axis deviation Pulmonary disease pattern Incomplete right bundle branch block Marked ST abnormality, possible inferolateral subendocardial injury Abnormal ECG Electronically Signed By: Torey Fermin [id number]
[2016-11-22] VITALS (24 sets, daily range): BP systolic 99–113; BP diastolic 55–58; PULSE 89–101; RESP 18–28
[2016-11-22] MEDS: INSULIN ASPART [NOVOLOG] 3 ML PEN SC SCH ×5 (06:00→23:41)
[2016-11-22] MEDS: LANSOPRAZOLE 30 MG CAP PO SCH ×2 (06:16→17:42)
[2016-11-22] MEDS: PIPER-TAZO 2.25 GM (PMX) 50 ML IVPB SCH ×3 (06:17→22:16)
[2016-11-22] MEDS: LINEZOLID 600 MG/D5W (PMX) 300 ML IVPB SCH ×2 (08:40→21:08)
[2016-11-22] MEDS: HEPARIN 5,000 UNIT/0.5 ML VIAL SC SCH ×2 (08:41→21:09)
[2016-11-22] MEDS ORDERED: ALTEPLASE (CATHFLO) 2 MG INJ CATHETER PRN (09:00)
--- NOTE | 2016-11-22 10:08 | PN ---
DATE: 11/22/2016 CARDIOLOGY FOLLOWUP SUBJECTIVE: Discussed with the staff. Rhythm strip was reviewed. The patient initially was in atr ial fibrillation and SVTs. The patient subsequently converted back to sinus rhythm. She is tatus p ost trach. She did not report chest pain or pressure. MEDICATIONS: Reviewed. PHYSICAL EXAMINATION: VITAL SIGNS: Temperature 98.4, heart rate 101, blood pressure 101/56, respiratory rate of 18, satur ating 94%. HEENT: Normocephalic, atraumatic. Pale. Eyes pupils equal and round. NECK: Status post tracheostomy, on the vent. CARDIOVASCULAR: Regular rate and rhythm. PULMONARY: With mild rhonchi. GASTROINTESTINAL: Soft, nontender. EXTREMITIES: With trivial edema of lower extremities. NEUROLOGIC: Awake, responds appropriately. PSYCHIATRIC: Appears to be calm. LABORATORY DATA: Glucose this morning is 140. The rest of the labs are still pending. ASSESSMENT AND PLAN: 1. Paroxysmal atrial fibrillation. 2. Hypoxemic respiratory failure, status post tracheostomy, vent dependent. 3. Status post shock and sepsis, currently blood pressure is improved. 4. Severe anemia with OB positive stool. 5. Encephalopathy, slowly improving. 6. Renal failure, on dialysis. 7. History of critical care polyneuropathy. 8. Diabetes. RECOMMENDATIONS: Follow up labs and adjust electrolytes as needed. Dialysis will be continued and managed as per renal team. Respiratory care will be continued. Antibiotic as per internal medicine as needed. We will monitor on telemetry for now. Dictated By: KIAH RAINES/SEEMA Conf#: [id number] DID#: [id number] CC: CHARLIE BUSBY DO;*EndCC*
--- NOTE | 2016-11-22 10:50 | PN ---
DATE: 11/22/2016 SUBJECTIVE: The patient had hemodialysis yesterday, tolerated well with 2 liters removed. No other acute events noted. ____ symptoms, hematochezia. OBJECTIVE: VITAL SIGNS: Blood pressure 101/56, respiration 18, pulse 101, temperature 98.4. HEENT: Head is normocephalic. NECK: Supple. HEART: Regular rate. LUNGS: Show diminished breath sounds at the base. ABDOMEN: Soft, nontender to palpation ____ EXTREMITIES: Negative for clubbing, cyanosis, edema. DERMATOLOGIC: No rashes. MUSCULOSKELETAL: No joint effusions. NEUROLOGIC: No change in exam. MEDICATIONS: The patient's medications have been reviewed. LABORATORY DATA: Currently pending. ASSESSMENT AND PLAN: 1. Sepsis, etiology secondary to urinary tract infection, questionable possible aspiration pneumoni a. The patient currently is on broad spectrum antibiotics. We will continue to monitor. Repeat cu ltures have been negative. Follow up infectious disease. 2. Anemia, etiology secondary to chronic disease, questionable gastrointestinal bleed. The patient 's hemoglobin levels have been stable. Continue to monitor hemoglobin and hematocrit levels. Sae nue Epogen. 3. Acute encephalopathy. Etiology is toxic metabolic. The patient's mental status has improved. We will continue to monitor. 4. Ventilator dependent respiratory failure. Vent settings have been reviewed. ABG has been revie wed. Continue to monitor. 5. Dysphagia. Status post PEG tube, tube feeding. 6. Acute kidney injury on top of chronic kidney disease. Etiology is secondary to acute tubular ne crosis. The patient is currently dialysis dependent. There has been no significant renal recovery. Continue dialysis 2 to 3 times weekly. 7. Atrial fibrillation, rate controlled. Continue current medical management. Follow up cardiolog y. 8. Mineral bone disorder. Continue to monitor calcium and phosphorus levels. 9. History of critical care polyneuropathy. Continue to monitor. 10. History of congestive heart failure. Continue current medical management. 11. History of breast cancer, status post mastectomy. 12. Diabetes. Continue Accu-Cheks and sliding scale. 13. History of candidemia. 14. Gastrointestinal and deep venous thrombosis prophylaxis. Continue proton pump inhibitor and he asia. Dictated By: CHARLIE ESPINOSA/NTS Conf#: [id number] DID#: [id number]
--- NOTE | 2016-11-22 14:18 | CONS ---
Date/Time of Note Date/Time of Note DATE: 11/22/16 TIME: :17 Consult Date/Type/Reason Admit Date/Time November 15, 2016 at 06:52 Initial Consult Date 11/15/16 Type of Consultation: Pulm Ordering Provider: YAYO EDGAR DO Subjective Increasing oxygen requirements FiO2 was increased to 70% No slowly decreasing with addition of PEEP Objective Vital Signs Date Time Temp Pulse Resp B/P Pulse Ox O2 Delivery O2 Flow Rate FiO2 11/22/16 13:15 94 28 95 60 11/22/16 11:38 97.9 105/56 11/21/16 10:40 Mechanical Ventilator Intake and Output 11/21/16 11/21/16 11/22/16 15:00 23:00 07:00 Intake Total 600 ml 1200 ml 750 ml Output Total 2300 ml 101 ml 45 ml Balance -1700 ml 1099 ml 705 ml Exam PHYSICAL EXAMINATION GENERAL: Elderly lady on mechanical ventilation appears comfortable at rest VITAL SIGNS: see below. HEENT: Pupils equal, round, and reactive to light. Tracheostomy site clean and intact. CARDIAC: S1, S2, 1/6 systolic ejection murmur CHEST: Diminished air entry bilaterally. ABDOMEN: Mildly distended. Bowel sounds present no guarding or rebound EXTREMITIES: No cyanosis, clubbing edema +1 NEUROLOGIC: Generalized weakness Results/Medications Result Diagram: 11/19/16 0603 11/19/16 0613 Results 24 hrs Laboratory Tests Test 11/21/16 17:08 11/22/16 00:10 11/22/16 06:30 11/22/16 11:51 Bedside Glucose 127 109 140 120 Medications Current Medications Heparin Sodium (Porcine) 5000 unit 5,000 unit Q12 SC Last administered on 08:41; Admin Dose 5,000 UNIT; Start 11/15/16 at 21:00 Linezolid (Zyvox 600mg/D5W (Pmx)) 300 ml @ 300 mls/hr Q12 IVPB Last administered on 11/22/16 08:40; Admin Dose 300 MLS/HR; Start 11/15/16 at 14:00 Miscellaneous Information 1 ea NOTE XX ; Start 11/16/16 at 01:30 Glucose (Glutose) 15 gm Q15M PRN PO DECREASED GLUCOSE; Start 11/16/16 at 01:30 Glucose (Glutose) 22.5 gm Q15M PRN PO DECREASED GLUCOSE; Start 11/16/16 at 01: 30 Dextrose (D50w Syringe) 25 ml Q15M PRN IV DECREASED GLUCOSE; Start 11/16/16 at 01:30 Dextrose (D50w Syringe) 50 ml Q15M PRN IV DECREASED GLUCOSE; Start 11/16/16 at 01:30 Glucagon (Glucagen) 1 mg Q15M PRN IM DECREASED GLUCOSE; Start 11/16/16 at 01:30 Glucose 15 gm 15 gm Q15M PRN BUCCAL DECREASED GLUCOSE; Start 11/16/16 at 01:30 Piperacillin Sod/ Tazobactam Sod (Zosyn 2.25gm/ 50ml (Pmx)) 50 ml @ 200 mls/hr Q8 IVPB Last administered on 11/22/16 14:00; Admin Dose 200 MLS/HR; Start 04/25 at 14:00 Lansoprazole (Prevacid) 30 mg BID@06,18 PO Last administered on 11/22/16 06:16 ; Admin Dose 30 MG; Start 11/17/16 at 18:00 Ondansetron HCl (Zofran Inj) 4 mg Q4H PRN IV NAUSEA AND/OR VOMITING; Start 05/26 at 08:30 Insulin Aspart (Novolog Insulin Pen) NOVOLOG *MILD* ALGORI... Q6 SC Last administered on 11/21/16 11:26; Admin Dose 1 UNIT; Start 11/17/16 at 12:00 Acetaminophen (Tylenol Liquid) 650 mg Q4H PRN GTB PAIN AND OR ELEVATED TEMP; Start 11/21/16 at 09:00 Assessment/Plan Chief Complaint/Hosp Course Assessment 1. Patient admitted for sepsis from UTI possibly line sepsis, improved. 2. Chronic renal failure, on hemodialysis. 3. Chronic respiratory failure, now requiring invasive mechanical ventilation due to sepsis. 4. Advanced dementia. 5. History of cardiac arrhythmia. Status post pacemaker placement. 6. History of anemia Plan 1. Continue mechanical ventilation, decrease FiO2 as tolerated 2. Status post transfusion stable 3. Continue tube feeding 4. dc subacute 5. Chest x-ray Problems: RHONDA BUENROSTRO MD, [facility] November 22, 2016 14:18
--- NOTE | 2016-11-22 14:47 | RADRPT ---
PROCEDURE: Chest x-ray CLINICAL INDICATION: Shortness of breath TECHNIQUE: Chest single view COMPARISON: 11/17/2016 FINDINGS: Tracheostomy tube and right IJ dialysis catheter remain in good position. As before there is left c hest dual lead pacemaker. Stable moderate cardiomegaly and mild atherosclerotic aortic calcificatio n is seen. There is ongoing mild interstitial CHF. There is small left pleural effusion with assoc iated left lower lobe compressive atelectasis and volume loss. Right costophrenic angle sharp year IMPRESSION: 1. Tracheostomy tube and right IJ dialysis catheter remain in place. 2. Cardiomegaly with mild CHF and small left pleural effusion. 3. Associated left lower lung volume loss and compressive atelectasis. 4. Pacemaker RPTAT: HH .William Bruce MD, Date Time Electronically viewed and signed by .William Bruce MD, on 11/22/2016 14:46 .W/
[2016-11-22 14:54] LABS: ADD SCAN DIFF NO
[2016-11-22 14:58] LABS: BASOPHILS % 0.3 % (0.0-2.0); EOSINOPHILS # 0.4 10^3/ul (0.0-0.5); EOSINOPHILS % 3.4 % (0.0-7.0); HEMATOCRIT 26.8 % (37.0-47.0); HEMOGLOBIN 8.3 g/dl (12.0-16.0); LYMPHOCYTES # 1.9 10^3/ul (0.8-2.9); LYMPHOCYTES % 17.6 % (15.0-51.0); MEAN CORPUSCULAR HEMOGLOBIN 28.5 pg (29.0-33.0); MEAN CORPUSCULAR VOLUME 92.1 fl (82.0-101.0); MEAN PLATELET VOLUME 10.8 fl (7.4-10.4); MONOCYTE # 0.8 10^3/ul (0.3-0.9); MONOCYTES % 7.3 % (0.0-11.0); NEUTROPHIL # 7.7 10^3/ul (1.6-7.5); NEUTROPHILS % 70.8 % (39.0-77.0); PLATELET COUNT 216 10^3/UL (140-415); RED BLOOD COUNT 2.91 10^6/ul (4.20-5.40); RED CELL DISTRIBUTION WIDTH 17.6 % (11.5-14.5); WHITE BLOOD COUNT 10.9 10^3/ul (4.8-10.8)
[2016-11-22 15:13] LABS: ALBUMIN 2.9 g/dl (3.3-4.9); CHLORIDE 100 mmol/L (97-110); SODIUM 141 mmol/L (135-144)
[2016-11-22 15:14] LABS: POTASSIUM 3.6 mmol/L (3.5-5.1)
[2016-11-22 15:16] LABS: ANION GAP 17 (8-16); CARBON DIOXIDE 28 mmol/L (21-31); CREATININE 2.38 mg/dl (0.44-1.00)
[2016-11-22 15:17] LABS: ALANINE AMINOTRANSFERASE 26 IU/L (13-69); ALBUMIN/GLOBULIN RATIO 0.78; ALKALINE PHOSPHATASE 122 IU/L (42-121); ASPARTATE AMINO TRANSFERASE 20 IU/L (15-46); BLOOD UREA NITROGEN 51 mg/dl (7-20); CALCIUM 8.3 mg/dl (8.4-10.2); GLUCOSE 106 mg/dl (70-220); TOTAL PROTEIN 6.6 g/dl (6.1-8.1)
[2016-11-22 15:18] LABS: MAGNESIUM 2.2 mg/dl (1.7-2.5); PHOSPHORUS 1.2 mg/dl (2.5-4.9)
[2016-11-22 15:21] LABS: CREATINE KINASE < 20 IU/L (23-200)
[2016-11-23] VITALS (32 sets, daily range): BP systolic 106–146; BP diastolic 55–69; PULSE 92–100; RESP 19–32
[2016-11-23] MEDS: LANSOPRAZOLE 30 MG CAP PO SCH ×2 (06:15→17:35)
[2016-11-23] MEDS: PIPER-TAZO 2.25 GM (PMX) 50 ML IVPB SCH ×2 (06:15→14:37)
[2016-11-23] MEDS: INSULIN ASPART [NOVOLOG] 3 ML PEN SC SCH ×4 (06:19→23:51)
[2016-11-23 07:33] LABS: ADD SCAN DIFF NO
[2016-11-23 07:37] LABS: BASOPHILS % 0.4 % (0.0-2.0); EOSINOPHILS # 0.6 10^3/ul (0.0-0.5); HEMATOCRIT 25.9 % (37.0-47.0); HEMOGLOBIN 8.1 g/dl (12.0-16.0); LYMPHOCYTES # 1.5 10^3/ul (0.8-2.9); LYMPHOCYTES % 13.1 % (15.0-51.0); MEAN CORPUSCULAR HEMOGLOBIN 28.6 pg (29.0-33.0); MEAN CORPUSCULAR HGB CONC 31.3 g/dl (32.0-37.0); MEAN CORPUSCULAR VOLUME 91.5 fl (82.0-101.0); MEAN PLATELET VOLUME 11.1 fl (7.4-10.4); MONOCYTE # 0.6 10^3/ul (0.3-0.9); MONOCYTES % 5.6 % (0.0-11.0); NEUTROPHIL # 8.6 10^3/ul (1.6-7.5); NEUTROPHILS % 75.5 % (39.0-77.0); PLATELET COUNT 227 10^3/UL (140-415); RED BLOOD COUNT 2.83 10^6/ul (4.20-5.40); RED CELL DISTRIBUTION WIDTH 17.3 % (11.5-14.5); WHITE BLOOD COUNT 11.3 10^3/ul (4.8-10.8)
[2016-11-23 08:09] LABS: POTASSIUM 3.5 mmol/L (3.5-5.1)
[2016-11-23 08:12] LABS: CREATININE 2.74 mg/dl (0.44-1.00)
[2016-11-23 08:13] LABS: CALCIUM 8.1 mg/dl (8.4-10.2); MAGNESIUM 2.2 mg/dl (1.7-2.5)
[2016-11-23] MEDS: LINEZOLID 600 MG/D5W (PMX) 300 ML IVPB SCH ×2 (09:11→20:34)
[2016-11-23] MEDS: HEPARIN 5,000 UNIT/0.5 ML VIAL SC SCH ×2 (09:15→20:34)
--- NOTE | 2016-11-23 09:38 | PN ---
DATE: 11/23/2016 SUBJECTIVE: The patient noted to have loose stool, multiple times x3. No other events noted. No h emoptysis, hematemesis or hematochezia. OBJECTIVE: VITAL SIGNS: Blood pressure is 126/60, respirations 20, pulse 97, temperature 98.6. HEENT: Head is normocephalic. NECK: Supple. HEART: Regular rate. LUNGS: Show diminished breath sounds at the base. ABDOMEN: Soft and nontender to palpation. No rebound or guarding. EXTREMITIES: Negative for clubbing, cyanosis. No edema. DERMATOLOGIC: No rashes. MUSCULOSKELETAL: No joint effusions. NEUROLOGIC: No change in exam. MEDICATIONS: The patient's medications have been reviewed. LABORATORY DATA: Shows sodium 139, potassium 3.5, BUN 64, creatinine 2.74, magnesium 1.0, phosphoru s 8.0. White count 11.3, hemoglobin 9.1, hematocrit 35.9, platelet count is 227. IMAGING: The patient's chest x-ray revealed mild CHF, atelectasis, pacemaker. ASSESSMENT AND PLAN: 1. Sepsis secondary to urinary tract infection, possible pneumonia. The patient is currently on br oad spectrum antibiotics. We will continue. We will follow up with infectious disease. 2. Diarrhea. Etiology may be secondary to antibiotics. However, we will rule out Clostridium diff icile by checking stool, monitor closely. 3. Anemia secondary to chronic kidney disease. We will continue to monitor hemoglobin and hematocr it levels. Continue Epogen. 4. Acute encephalopathy, etiology toxic metabolic. The patient's mental status is improved. Sae nue to monitor. 5. Ventilator dependent respiratory failure. Vent settings have been reviewed. ABG has been revie wed. Follow up with Pulmonary. 6. Dysphagia. Status post PEG tube. Continue tube feed. 7. Acute kidney injury on top of chronic kidney disease, etiology is secondary to acute tubular nec rosis. The patient remains dialysis dependent, no evidence of recovery. 8. Atrial fibrillation, rate controlled. Continue medical management. 9. Mineral bone disorder. The patient is hypophosphatemic. We will replete with potassium phospha te 30 mEq IV x1. 10. History of congestive heart failure. Continue medical management. 11. History of breast cancer status post mastectomy. 12. Diabetes. Continue Accu-Cheks and insulin sliding scale. 13. Gastrointestinal and deep venous thrombosis prophylaxis. Continue proton pump inhibitor and he asia. Dictated By: CHARLIE ESPINOSA/SEEMA Conf#: [id number] DID#: [id number]
[2016-11-23] MEDS ORDERED: POTASSIUM PHOSPHATE 30 MM in SOD CHLORIDE 0.9% 250 ML IVPB ONE (10:00)
--- NOTE | 2016-11-23 11:15 | CONS ---
Date/Time of Note Date/Time of Note DATE: 11/23/16 TIME: 11:13 Consult Date/Type/Reason Admit Date/Time November 15, 2016 at 06:52 Initial Consult Date 11/15/16 Type of Consultation: Pulm Ordering Provider: YAYO EGDAR DO Subjective Patient stable this morning no new events Objective Vital Signs Date Time Temp Pulse Resp B/P Pulse Ox O2 Delivery O2 Flow Rate FiO2 11/23/16 10:55 93 11/23/16 10:05 31 96 60 11/23/16 07:23 98.6 126/60 11/21/16 10:40 Mechanical Ventilator Intake and Output 11/22/16 11/22/16 11/23/16 15:00 23:00 07:00 Intake Total 400 ml 1170 ml 804 ml Output Total 30 ml Balance 400 ml 1140 ml 804 ml Exam PHYSICAL EXAMINATION GENERAL: Elderly lady on mechanical ventilation appears comfortable at rest VITAL SIGNS: see below. HEENT: Pupils equal, round, and reactive to light. Tracheostomy site clean and intact. CARDIAC: S1, S2, 1/6 systolic ejection murmur CHEST: Diminished air entry bilaterally. ABDOMEN: Mildly distended. Bowel sounds present no guarding or rebound EXTREMITIES: No cyanosis, clubbing edema +1 NEUROLOGIC: Generalized weakness Results/Medications Result Diagram: 11/23/16 0650 11/23/16 0650 Results 24 hrs Laboratory Tests Test 11/22/16 11:51 11/22/16 14:20 11/22/16 17:40 11/22/16 23:38 Bedside Glucose 120 117 144 White Blood Count 10.9 H Red Blood Count 2.91 L Hemoglobin 8.3 L Hematocrit 26.8 L Mean Corpuscular Volume 92.1 Mean Corpuscular Hemoglobin 28.5 L Mean Corpuscular Hemoglobin Concent 31.0 L Red Cell Distribution Width 17.6 H Platelet Count 216 Mean Platelet Volume 10.8 H Neutrophils % 70.8 Lymphocytes % 17.6 Monocytes % 7.3 Eosinophils % 3.4 Basophils % 0.3 Nucleated Red Blood Cells % 0.0 Neutrophils # 7.7 H Lymphocytes # 1.9 Monocytes # 0.8 Eosinophils # 0.4 Basophils # 0.0 Nucleated Red Blood Cells # 0.0 Sodium Level 141 Potassium Level 3.6 Chloride Level 100 Carbon Dioxide Level 28 Anion Gap 17 H Blood Urea Nitrogen 51 H Creatinine 2.38 H Glucose Level 106 Calcium Level 8.3 L Phosphorus Level 1.2 L Magnesium Level 2.2 Total Bilirubin 0.0 L Direct Bilirubin 0.00 Indirect Bilirubin 0.0 Aspartate Amino Transf (AST/SGOT) 20 Alanine Aminotransferase (ALT/SGPT) 26 Alkaline Phosphatase 122 H Creatine Kinase < 20 L Total Protein 6.6 Albumin 2.9 L Globulin 3.70 H Albumin/Globulin Ratio 0.78 Thyroid Stimulating Hormone (TSH) 2.540 Free Thyroxine 1.86 Digoxin Level 0.4 L Test 11/23/16 06:16 11/23/16 06:50 Bedside Glucose 143 White Blood Count 11.3 H Red Blood Count 2.83 L Hemoglobin 8.1 L Hematocrit 25.9 L Mean Corpuscular Volume 91.5 Mean Corpuscular Hemoglobin 28.6 L Mean Corpuscular Hemoglobin Concent 31.3 L Red Cell Distribution Width 17.3 H Platelet Count 227 Mean Platelet Volume 11.1 H Neutrophils % 75.5 Lymphocytes % 13.1 L Monocytes % 5.6 Eosinophils % 5.0 Basophils % 0.4 Nucleated Red Blood Cells % 0.0 Neutrophils # 8.6 H Lymphocytes # 1.5 Monocytes # 0.6 Eosinophils # 0.6 H Basophils # 0.0 Nucleated Red Blood Cells # 0.0 Sodium Level 139 Potassium Level 3.5 Chloride Level 100 Carbon Dioxide Level 25 Anion Gap 18 H Blood Urea Nitrogen 64 H Creatinine 2.74 H Glucose Level 120 Calcium Level 8.1 L Phosphorus Level 1.0 L Magnesium Level 2.2 Medications Current Medications Heparin Sodium (Porcine) 5000 unit 5,000 unit Q12 SC Last administered on 09:15; Admin Dose 5,000 UNIT; Start 11/15/16 at 21:00 Linezolid (Zyvox 600mg/D5W (Pmx)) 300 ml @ 300 mls/hr Q12 IVPB Last administered on 11/23/16 09:11; Admin Dose 300 MLS/HR; Start 11/15/16 at 14:00 Miscellaneous Information 1 ea NOTE XX ; Start 11/16/16 at 01:30 Glucose (Glutose) 15 gm Q15M PRN PO DECREASED GLUCOSE; Start 11/16/16 at 01:30 Glucose (Glutose) 22.5 gm Q15M PRN PO DECREASED GLUCOSE; Start 11/16/16 at 01: 30 Dextrose (D50w Syringe) 25 ml Q15M PRN IV DECREASED GLUCOSE; Start 11/16/16 at 01:30 Dextrose (D50w Syringe) 50 ml Q15M PRN IV DECREASED GLUCOSE; Start 11/16/16 at 01:30 Glucagon (Glucagen) 1 mg Q15M PRN IM DECREASED GLUCOSE; Start 11/16/16 at 01:30 Glucose 15 gm 15 gm Q15M PRN BUCCAL DECREASED GLUCOSE; Start 11/16/16 at 01:30 Piperacillin Sod/ Tazobactam Sod (Zosyn 2.25gm/ 50ml (Pmx)) 50 ml @ 200 mls/hr Q8 IVPB Last administered on 11/23/16 06:15; Admin Dose 200 MLS/HR; Start 04/25 at 14:00 Lansoprazole (Prevacid) 30 mg BID@06,18 PO Last administered on 11/23/16 06:15 ; Admin Dose 30 MG; Start 11/17/16 at 18:00 Ondansetron HCl (Zofran Inj) 4 mg Q4H PRN IV NAUSEA AND/OR VOMITING; Start 05/26 at 08:30 Insulin Aspart (Novolog Insulin Pen) NOVOLOG *MILD* ALGORI... Q6 SC Last administered on 11/23/16 06:19; Admin Dose 1 UNIT; Start 11/17/16 at 12:00 Acetaminophen 650 mg 650 mg Q4H PRN GTB PAIN AND OR ELEVATED TEMP; Start at 09:00 Potassium Phosphate/Sodium Chloride (K Phos (Mm)/NS) 260 ml @ 65 mls/hr ONCE ONCE IVPB ; Start 11/23/16 at 10:00; Stop 11/23/16 at 13:59 Assessment/Plan Chief Complaint/Hosp Course Assessment 1. Patient admitted for sepsis from UTI possibly line sepsis, improved. 2. Chronic renal failure, on hemodialysis. 3. Chronic respiratory failure, now requiring invasive mechanical ventilation due to sepsis. 4. Advanced dementia. 5. History of cardiac arrhythmia. Status post pacemaker placement. 6. History of anemia Plan 1. Continue mechanical ventilation, decrease FiO2 as tolerated arterial blood gas today 2. Status post transfusion stable 3. Continue tube feeding 4. Chest x-ray shows CHF and compressive atelectasis 5. Continue DVT and GI prophylaxis Disposition [facility] facility Problems: VADGAMA[facility] V. [facility] November 23, 2016 11:15
[2016-11-23] MEDS ORDERED: HEPARIN 1000 UNITS/ML 10 ML INJ CATHETER SCH (11:30)
[2016-11-23 12:29] LABS: AADO2 Arterial 306.6 mmHg (7.0-24.0); Allen Test ACCEPTAB; Arterial Base Excess 0.7 mmol/L (-3.0-3); Arterial COHb 0.2 % (0.0-3.0); Arterial Fraction of Oxyhgb 96.8 % (93.0-99.0); Arterial HCO3 23.2 mmol/L (22.0-26.0); Arterial MetHb 0.1 % (0.0-1.5); Arterial Total Hemglobin 10.9 g/dl (12.0-18.0); MODE VENT - AC
--- NOTE | 2016-11-23 15:32 | CONS ---
Date/Time of Note Date/Time of Note DATE: 11/23/16 TIME: 15:30 Assessment/Plan Assessment/Plan Chief Complaint/Hosp Course 1. Septic shock likely 2/2 to UTI- completing course of abx 2. vdrf 3. Loose stool and elevating wbc; concerning for Cdiff 4. multiple chronic medical problems 5. apparent Vancomycin allergy R: 1. begin abx deescalation- cont. Linezolid alone for now 2. check cdiff 3. probiotics. 4. Empiric Flagyl 5. Will follow with you Problems: Consultation Date/Type/Reason Admit Date/Time November 15, 2016 at 06:52 Initial Consult Date 11/15/16 Type of Consultation: id Referring Provider: YAYO EDGAR DO 24 HR Interval Summary Free Text/Dictation Patient has been noted to have some loose stools. remains on vent. awake. Exam/Review of Systems Vital Signs Vitals Vital Signs Date Time Temp Pulse Resp B/P Pulse Ox O2 Delivery O2 Flow Rate FiO2 11/23/16 13:46 97 27 97 50 11/23/16 11:53 98.0 115/57 11/21/16 10:40 Mechanical Ventilator Intake and Output 11/22/16 11/22/16 11/23/16 15:00 23:00 07:00 Intake Total 400 ml 1170 ml 804 ml Output Total 30 ml Balance 400 ml 1140 ml 804 ml Exam Constitutional: alert, non-verbal Psych: confusion, depression Eyes: EOMI ENMT: nl external ears & nose, nl lips & teeth, nl nasal mucosa & septum Respiratory: congested cough, diminished breath sounds Cardiovascular: regular rate and rhythm Gastrointestinal: non-tender, soft 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: ANIMAL SURGEON II-XII intact, nl mental status, nl speech, nl strength Results Result Diagram: 11/23/16 0650 11/23/16 0650 Results 24 hrs Laboratory Tests Test 11/22/16 17:40 11/22/16 23:38 11/23/16 06:16 11/23/16 06:50 Bedside Glucose 117 144 143 White Blood Count 11.3 H Red Blood Count 2.83 L Hemoglobin 8.1 L Hematocrit 25.9 L Mean Corpuscular Volume 91.5 Mean Corpuscular Hemoglobin 28.6 L Mean Corpuscular Hemoglobin Concent 31.3 L Red Cell Distribution Width 17.3 H Platelet Count 227 Mean Platelet Volume 11.1 H Neutrophils % 75.5 Lymphocytes % 13.1 L Monocytes % 5.6 Eosinophils % 5.0 Basophils % 0.4 Nucleated Red Blood Cells % 0.0 Neutrophils # 8.6 H Lymphocytes # 1.5 Monocytes # 0.6 Eosinophils # 0.6 H Basophils # 0.0 Nucleated Red Blood Cells # 0.0 Sodium Level 139 Potassium Level 3.5 Chloride Level 100 Carbon Dioxide Level 25 Anion Gap 18 H Blood Urea Nitrogen 64 H Creatinine 2.74 H Glucose Level 120 Calcium Level 8.1 L Phosphorus Level 1.0 L Magnesium Level 2.2 Test 11/23/16 11:30 11/23/16 11:49 Blood Gas Specimen Source Blood arterial Arterial Blood Date Drawn 11/23/2016 12:15:36 PM Arterial Blood pH (Temp corrected) 7.505 H Arterial Blood pCO2 (Temp correct) 30.1 L Arterial Blood pO2 (Temp corrected) 88.1 Arterial Blood HCO3 23.2 Arterial Blood Base Excess 0.7 Arterial Blood Oxygen Saturation 97.1 Ivan Test ACCEPTAB Arterial Blood Gas Puncture Site Left Radial Arterial Blood Carboxyhemoglobin 0.2 Arterial Blood Methemoglobin 0.1 Blood Gas A-a O2 Differential 306.6 H Oxyhemoglobin Percent 96.8 Total Hemoglobin 10.9 L Blood Gas Temperature 37.0 Blood Gas Respiration Rate 10.0 Blood Gas Actual Respiration Rate 34 Blood Gas Modality VENT - AC FiO2 60.0 Blood Gas Tidal Volume 500.0 Blood Gas Low PEEP Setting 5.0 Blood Gas Notified Whom JLD Blood Gas Notified Time 11/23/2016 12:29:22 PM Bedside Glucose 145 Medications Medications Current Medications Heparin Sodium (Porcine) 5000 unit 5,000 unit Q12 SC Last administered on 09:15; Admin Dose 5,000 UNIT; Start 11/15/16 at 21:00 Linezolid (Zyvox 600mg/D5W (Pmx)) 300 ml @ 300 mls/hr Q12 IVPB Last administered on 11/23/16 09:11; Admin Dose 300 MLS/HR; Start 11/15/16 at 14:00 Miscellaneous Information 1 ea NOTE XX ; Start 11/16/16 at 01:30 Glucose (Glutose) 15 gm Q15M PRN PO DECREASED GLUCOSE; Start 11/16/16 at 01:30 Glucose (Glutose) 22.5 gm Q15M PRN PO DECREASED GLUCOSE; Start 11/16/16 at 01: 30 Dextrose (D50w Syringe) 25 ml Q15M PRN IV DECREASED GLUCOSE; Start 11/16/16 at 01:30 Dextrose (D50w Syringe) 50 ml Q15M PRN IV DECREASED GLUCOSE; Start 11/16/16 at 01:30 Glucagon (Glucagen) 1 mg Q15M PRN IM DECREASED GLUCOSE; Start 11/16/16 at 01:30 Glucose 15 gm 15 gm Q15M PRN BUCCAL DECREASED GLUCOSE; Start 11/16/16 at 01:30 Piperacillin Sod/ Tazobactam Sod (Zosyn 2.25gm/ 50ml (Pmx)) 50 ml @ 200 mls/hr Q8 IVPB Last administered on 11/23/16 14:37; Admin Dose 200 MLS/HR; Start 04/25 at 14:00 Lansoprazole (Prevacid) 30 mg BID@06,18 PO Last administered on 11/23/16 06:15 ; Admin Dose 30 MG; Start 11/17/16 at 18:00 Ondansetron HCl (Zofran Inj) 4 mg Q4H PRN IV NAUSEA AND/OR VOMITING; Start 05/26 at 08:30 Insulin Aspart (Novolog Insulin Pen) NOVOLOG *MILD* ALGORI... Q6 SC Last administered on 11/23/16 12:01; Admin Dose 1 UNIT; Start 11/17/16 at 12:00 Acetaminophen (Tylenol Liquid) 650 mg Q4H PRN GTB PAIN AND OR ELEVATED TEMP; Start 11/21/16 at 09:00 RUBY ROY MD November 23, 2016 15:32
[2016-11-23] MEDS: metroNIDAZOLE 500 MG TAB PO SCH (21:42)
[2016-11-24] VITALS (25 sets, daily range): BP systolic 103–134; BP diastolic 58–77; PULSE 98–106; RESP 20–34
[2016-11-24] MEDS: LANSOPRAZOLE 30 MG CAP PO SCH ×2 (05:39→17:30)
[2016-11-24] MEDS: metroNIDAZOLE 500 MG TAB PO SCH ×2 (05:39→13:58)
[2016-11-24] MEDS: INSULIN ASPART [NOVOLOG] 3 ML PEN SC SCH ×3 (05:40→17:38)
[2016-11-24 07:04] LABS: ADD SCAN DIFF NO; HAAIG REFLEX REFLEX FILED
[2016-11-24 07:11] LABS: HEMATOCRIT 28.9 % (37.0-47.0); HEMOGLOBIN 8.8 g/dl (12.0-16.0); MEAN CORPUSCULAR HEMOGLOBIN 27.9 pg (29.0-33.0); MEAN CORPUSCULAR HGB CONC 30.4 g/dl (32.0-37.0); MEAN CORPUSCULAR VOLUME 91.7 fl (82.0-101.0); PLATELET COUNT 215 10^3/UL (140-415); RED BLOOD COUNT 3.15 10^6/ul (4.20-5.40); RED CELL DISTRIBUTION WIDTH 17.8 % (11.5-14.5); WHITE BLOOD COUNT 14.5 10^3/ul (4.8-10.8)
[2016-11-24 07:12] LABS: BASOPHILS % 0.1 % (0.0-2.0); EOSINOPHILS # 0.6 10^3/ul (0.0-0.5); EOSINOPHILS % 4.1 % (0.0-7.0); LYMPHOCYTES # 2.1 10^3/ul (0.8-2.9); LYMPHOCYTES % 14.8 % (15.0-51.0); MEAN PLATELET VOLUME 10.6 fl (7.4-10.4); MONOCYTE # 0.8 10^3/ul (0.3-0.9); MONOCYTES % 5.5 % (0.0-11.0); NEUTROPHIL # 10.9 10^3/ul (1.6-7.5); NEUTROPHILS % 75.2 % (39.0-77.0); NUCLEATED RED BLOOD CELLS% 0.1 /100WBC (0.0-0.0)
[2016-11-24 07:35] LABS: CALCIUM 8.4 mg/dl (8.4-10.2); CREATININE 2.09 mg/dl (0.44-1.00); MAGNESIUM 1.9 mg/dl (1.7-2.5); PHOSPHORUS 2.3 mg/dl (2.5-4.9); POTASSIUM 4.1 mmol/L (3.5-5.1)
--- NOTE | 2016-11-24 07:41 | PN ---
DATE: 11/23/2016 CARDIOLOGY FOLLOWUP SUBJECTIVE: Discussed with the staff. History was reviewed. The patient remains on the vent and c urrently on 70% oxygen. Remains in sinus rhythm. Episode of atrial fibrillation overnight. No repo rted chest pain or pressure. MEDICATIONS: Reviewed. PHYSICAL EXAMINATION: VITAL SIGNS: Temperature 98.6, heart rate of 95, blood pressure 126/60, respiratory rate of 31. HEENT: Normocephalic, atraumatic. Elderly female status post tracheostomy on the vent, currently o n 70% oxygen. CARDIOVASCULAR: Regular rate and rhythm, systolic murmur. PULMONARY: Minimal rhonchi at the base. GASTROINTESTINAL: Soft, nontender. EXTREMITIES: With trivial edema. NEUROLOGIC: Awake, responds appropriately. PSYCHIATRIC: Awake, anxious. LABORATORY: WBC of 11.3, hemoglobin 8.1, platelets of 227. Sodium 139, potassium 3.5, BUN of 64, c reatinine 2.74, glucose 120, mag is 2.2, phosphorus is 1.0. ASSESSMENT AND PLAN: 1. Hypoxemia and hypercapnic respiratory failure, status post tracheostomy, vent dependence. 2. Paroxysmal atrial fibrillation, currently remains in sinus rhythm. 3. Status post sepsis and shock. Blood pressure has improved now. 4. History of congestive heart failure on fluid overload, currently appears to be stable. 5. Dysphagia, status post percutaneous endoscopic gastrostomy placement. 6. Renal failure on dialysis now. 7. History of critical care polyneuropathy. 8. Diabetes, on insulin. 9. Severe anemia, status post multiple transfusions. RECOMMENDATIONS: We will continue with the current cardiac care. Anticoagulation is on hold due to concern about the bleeding and severe anemia. Respiratory care, vent support will be continued and managed as per pulmonary. Dialysis as per renal will continue to monitor closely on the correct el ectrolytes as needed. Dictated By: KIAH RAINES/SEEMA Conf#: [id number] DID#: [id number] CC: CHARLIE BUSBY DO;*EndCC*
[2016-11-24 08:18] LABS: HEPATITIS B CORE ANTIBODY NEGATIVE (NEGATIVE)
--- NOTE | 2016-11-24 08:21 | PN ---
DATE: 11/24/2016 CARDIOLOGY FOLLOWUP PROGRESS NOTE SUBJECTIVE: Discussed with the staff. Rhythm strip was reviewed. The patient remains in sinus rhy thm. No more atrial fibrillation. The patient appears to be currently not feeling well, but could not describe any pain or discomfort to me. Still on trach on the vent. MEDICATIONS: Reviewed as per medication reconciliation, personally reviewed. PHYSICAL EXAMINATION: VITAL SIGNS: Temperature 98.7, heart rate of 89, blood pressure 120/63, respiratory rate of 32. HEENT: Normocephalic, atraumatic. NECK: Status post tracheostomy. Elderly female. CARDIOVASCULAR: Regular rate and rhythm, systolic murmur. PULMONARY: Mild rhonchi. GASTROINTESTINAL: Soft, nontender. EXTREMITIES: With trivial lower extremity edema. NEUROLOGIC: Awake. PSYCHIATRIC: Appears to be anxious and depressed. LABORATORY: WBC of 14.5, hemoglobin 8.8, platelets of 215. ABG as of yesterday showed pH of 7.5, p CO2 of 30, pO2 of 88. ASSESSMENT AND PLAN: 1. Hypoxic hypercapnic respiratory failure, status post tracheostomy, vent-dependent. 2. Status post sepsis and shock. 3. Paroxysmal atrial fibrillation, currently in sinus rhythm. 4. Encephalopathy. 5. Dysphagia, status post percutaneous endoscopic gastrostomy placement. 6. Renal failure, on dialysis. 7. History of fluid overload, congestive heart failure, fluid management as per renal with true gal lysis. 8. History of breast cancer status post mastectomy 9. Diabetes. RECOMMENDATIONS: We will continue with the current cardiac care. Electrolytes will be corrected as needed. Off of anticoagulation due to concern about bleeding and severe anemia. Hemodialysis will be continued. Monitor on telemetry. Vent support will be continued. Dictated By: KIAH RAINES/SEEMA Conf#: [id number] DID#: [id number] CC: CHARLIE BUSBY DO;*EndCC*
--- NOTE | 2016-11-24 08:37 | RADRPT ---
PROCEDURE: XR Chest 1 View. CLINICAL INDICATION: Positive PPD TECHNIQUE: AP view of the chest was obtained. COMPARISON: November 22, 2016 FINDINGS: The cardiomediastinal silhouette is within normal limits. Left-sided dual chamber pacemaker has its leads over the heart and appears stable. Right-sided dialysis catheter is unchanged. Tracheostomy tube is stable and appears in grossly appropriate location. Patchy infiltrates in the right lower l obe have developed. The lungs are hypoinflated. The osseous structures appear grossly intact. Righ t-sided PICC line is stable. IMPRESSION: Interval development of patchy infiltrates in the right lower lobe. Etiology is uncertain. Tubercu losis cannot be excluded. Hypoinflated lungs. RPTAT: AA .Henry Flores MD, MD Date Time Electronically viewed and signed by .Henry Flores MD, on 11/24/2016 08:37 .P/
[2016-11-24] MEDS: LINEZOLID 600 MG/D5W (PMX) 300 ML IVPB SCH ×2 (08:47→20:43)
[2016-11-24] MEDS: HEPARIN 5,000 UNIT/0.5 ML VIAL SC SCH ×2 (08:55→20:44)
--- NOTE | 2016-11-24 09:00 | PN ---
DATE: 11/24/2016 SUBJECTIVE: The patient had hemodialysis yesterday with 2 liters removed, tolerated it well. The p atient was afebrile; however, continues to have loose stools. No other acute events noted. No hemo ptysis, hematemesis, or hematochezia. OBJECTIVE: VITAL SIGNS: Blood pressure is 108/68, respirations 20, pulse 104, temperature 98.4. HEENT: Head is normocephalic. NECK: Supple. HEART: Regular rate. LUNGS: Show diminished breath sounds at the base. ABDOMEN: Soft, nontender to palpation, no rebound or guarding. EXTREMITIES: Negative for clubbing, cyanosis, no edema. DERMATOLOGIC: No rashes. MUSCULOSKELETAL: No joint effusions. NEUROLOGIC: No change in exam. MEDICATIONS: The patient's medications have been reviewed. LABORATORY DATA: Shows a white count of 14.5, hemoglobin 9.8, hematocrit 28.9, platelet count is 21 5. Sodium 139, potassium 4.1, chloride 102, BUN 45, creatinine 2.09, lactic acid 4.0, phosphorus 2. 3. ASSESSMENT AND PLAN: 1. Sepsis secondary to urinary tract infection, possible pneumonia. The patient has completed anti biotic course, currently being deescalated by ID. Will continue to monitor closely. 2. Diarrhea with leukocytosis, etiology is concerning for Clostridium difficile. The patient was s tarted on empiric Flagyl. We will follow up Clostridium difficile culture. 3. Lactic acidosis. Etiology may be due to underlying sepsis. Will repeat lactic acid level, repe at procalcitonin level, monitor closely. The patient appears clinically stable, benign abdominal ex am, low suspicion for GI source at this time. 4. Acute encephalopathy, etiology toxic metabolic. Mental status slowly improving. Continue to mo nitor. 5. Ventilator-dependent respiratory failure. Vent settings have been reviewed. ABGs have been rev iewed. Continue to monitor. Follow up with pulmonary. 6. Dysphagia status post percutaneous endoscopic gastrostomy. Continue tube feeding. 7. Acute kidney injury on top of chronic kidney disease, etiology secondary to acute tubular necros is. The patient remains dialysis-dependent, no evidence of recovery. 8. Atrial fibrillation, rate controlled. Continue medical management. Anticoagulation is deferred due to a previous gastrointestinal bleed. 9. Mineral bone disorder. The patient is hypophosphatemic. Continue sodium-phosphate repletion. 10. History of congestive heart failure. Continue medical management. 11. History of breast cancer status post mastectomy. 12. Diabetes. Continue current insulin regimen. 13. Gastrointestinal and deep venous thrombosis prophylaxis. Continue proton pump inhibitor and he asia. Dictated By: CHARLIE ESPINOSA/NTS Conf#: [id number] DID#: [id number]
[2016-11-24] MEDS: NEUTRA-PHOS 250 MG PACKET GTB SCH ×3 (10:52→20:43)
--- NOTE | 2016-11-24 11:28 | CONS ---
Date/Time of Note Date/Time of Note DATE: 11/24/16 TIME: 11:26 Consult Date/Type/Reason Admit Date/Time November 15, 2016 at 06:52 Initial Consult Date 11/15/16 Type of Consultation: Pulmonary Ordering Provider: YAYO EDGAR DO Subjective Patient comfortable this morning no new events Objective Vital Signs Date Time Temp Pulse Resp B/P Pulse Ox O2 Delivery O2 Flow Rate FiO2 11/24/16 08:27 104 11/24/16 07:59 98.4 20 108/68 94 11/24/16 05:23 50 11/21/16 10:40 Mechanical Ventilator Intake and Output 11/23/16 11/23/16 11/24/16 15:00 23:00 07:00 Intake Total 400 ml 320 ml 825 ml Output Total 2700 ml 80 ml 400 ml Balance -2300 ml 240 ml 425 ml Results/Medications Result Diagram: 11/24/16 0615 11/24/16 0615 Results 24 hrs Laboratory Tests Test 11/23/16 11:30 11/23/16 11:49 11/23/16 16:10 11/23/16 17:33 Blood Gas Specimen Source Blood arterial Arterial Blood Date Drawn 11/23/2016 12:15:36 PM Arterial Blood pH (Temp corrected) 7.505 H Arterial Blood pCO2 (Temp correct) 30.1 L Arterial Blood pO2 (Temp corrected) 88.1 Arterial Blood HCO3 23.2 Arterial Blood Base Excess 0.7 Arterial Blood Oxygen Saturation 97.1 Iavn Test ACCEPTAB Arterial Blood Gas Puncture Site Left Radial Arterial Blood Carboxyhemoglobin 0.2 Arterial Blood Methemoglobin 0.1 Blood Gas A-a O2 Differential 306.6 H Oxyhemoglobin Percent 96.8 Total Hemoglobin 10.9 L Blood Gas Temperature 37.0 Blood Gas Respiration Rate 10.0 Blood Gas Actual Respiration Rate 34 Blood Gas Modality VENT - AC FiO2 60.0 Blood Gas Tidal Volume 500.0 Blood Gas Low PEEP Setting 5.0 Blood Gas Notified Whom JLD Blood Gas Notified Time 11/23/2016 12:29:22 PM Bedside Glucose 145 121 Lactic Acid Level 4.0 H Test 11/23/16 23:50 11/24/16 05:40 11/24/16 06:15 11/24/16 09:47 Bedside Glucose 139 138 White Blood Count 14.5 #H Red Blood Count 3.15 L Hemoglobin 8.8 L Hematocrit 28.9 L Mean Corpuscular Volume 91.7 Mean Corpuscular Hemoglobin 27.9 L Mean Corpuscular Hemoglobin Concent 30.4 L Red Cell Distribution Width 17.8 H Platelet Count 215 Mean Platelet Volume 10.6 H Neutrophils % 75.2 Lymphocytes % 14.8 L Monocytes % 5.5 Eosinophils % 4.1 Basophils % 0.1 Nucleated Red Blood Cells % 0.1 H Neutrophils # 10.9 H Lymphocytes # 2.1 Monocytes # 0.8 Eosinophils # 0.6 H Basophils # 0.0 Nucleated Red Blood Cells # 0.0 Sodium Level 139 Potassium Level 4.1 Chloride Level 102 Carbon Dioxide Level 23 Anion Gap 18 H Blood Urea Nitrogen 45 #H Creatinine 2.09 H Glucose Level 144 Calcium Level 8.4 Phosphorus Level 2.3 #L Magnesium Level 1.9 Hepatitis B Surface Antigen NEGATIVE Hepatitis B Core Total Antibody NEGATIVE Hepatitis C Antibody NEGATIVE Lactic Acid Level 4.1 *H Medications Current Medications Heparin Sodium (Porcine) 5000 unit 5,000 unit Q12 SC Last administered on 08:55; Admin Dose 5,000 UNIT; Start 11/15/16 at 21:00 Linezolid (Zyvox 600mg/D5W (Pmx)) 300 ml @ 300 mls/hr Q12 IVPB Last administered on 11/24/16 08:47; Admin Dose 300 MLS/HR; Start 11/15/16 at 14:00 Miscellaneous Information 1 ea NOTE XX ; Start 11/16/16 at 01:30 Glucose (Glutose) 15 gm Q15M PRN PO DECREASED GLUCOSE; Start 11/16/16 at 01:30 Glucose (Glutose) 22.5 gm Q15M PRN PO DECREASED GLUCOSE; Start 11/16/16 at 01: 30 Dextrose (D50w Syringe) 25 ml Q15M PRN IV DECREASED GLUCOSE; Start 11/16/16 at 01:30 Dextrose (D50w Syringe) 50 ml Q15M PRN IV DECREASED GLUCOSE; Start 11/16/16 at 01:30 Glucagon (Glucagen) 1 mg Q15M PRN IM DECREASED GLUCOSE; Start 11/16/16 at 01:30 Glucose (Glutose) 15 gm Q15M PRN BUCCAL DECREASED GLUCOSE; Start 11/16/16 at 01 :30 Lansoprazole (Prevacid) 30 mg BID@06,18 PO Last administered on 11/24/16 05:39 ; Admin Dose 30 MG; Start 11/17/16 at 18:00 Ondansetron HCl (Zofran Inj) 4 mg Q4H PRN IV NAUSEA AND/OR VOMITING; Start 05/26 at 08:30 Insulin Aspart (Novolog Insulin Pen) NOVOLOG *MILD* ALGORI... Q6 SC Last administered on 11/23/16 12:01; Admin Dose 1 UNIT; Start 11/17/16 at 12:00 Acetaminophen (Tylenol Liquid) 650 mg Q4H PRN GTB PAIN AND OR ELEVATED TEMP; Start 11/21/16 at 09:00 Metronidazole (Flagyl) 500 mg Q8 PO Last administered on 11/24/16 05:39; Admin Dose 500 MG; Start 11/23/16 at 22:00 Sodium Phosphate (Neutra-Phos) 250 mg TID GTB Last administered on 11/24/16 10 :52; Admin Dose 250 MG; Start 11/24/16 at 10:00 Assessment/Plan Chief Complaint/Hosp Course Assessment 1. Patient admitted for sepsis from UTI possibly line sepsis, improved. 2. Chronic renal failure, on hemodialysis. 3. Chronic respiratory failure, now requiring invasive mechanical ventilation due to sepsis. 4. Advanced dementia. 5. History of cardiac arrhythmia. Status post pacemaker placement. 6. History of anemia Plan 1. Continue mechanical ventilation, decrease FiO2 as tolerated 2. Status post transfusion stable 3. Continue tube feeding 4. Chest x-ray shows CHF and compressive atelectasis 5. Continue DVT and GI prophylaxis Discharge planning okay from pulmonary standpoint Problems: RHONDA BUENROSTRO MD, [facility] November 24, 2016 11:28
--- NOTE | 2016-11-24 18:24 | CONS ---
Date/Time of Note Date/Time of Note DATE: 11/24/16 TIME: 18:23 Assessment/Plan Assessment/Plan Chief Complaint/Hosp Course 1. Septic shock likely 2/2 to UTI- completing course of abx 2. vdrf 3. Loose stool and elevating wbc; concerning for Cdiff 4. multiple chronic medical problems 5. apparent Vancomycin allergy R: 1. begin abx deescalation- cont. Linezolid alone for now-- monitor wbc closely 2. check cdiff 3. probiotics. 4. d/c Empiric Flagyl 5. Will follow with you Problems: Consultation Date/Type/Reason Admit Date/Time November 15, 2016 at 06:52 Initial Consult Date 11/15/16 Type of Consultation: id Referring Provider: YAYO EDGAR DO 24 HR Interval Summary Free Text/Dictation cdiff was negative. increasing wbc. Exam/Review of Systems Vital Signs Vitals Vital Signs Date Time Temp Pulse Resp B/P Pulse Ox O2 Delivery O2 Flow Rate FiO2 11/24/16 17:54 88 34 97 50 11/24/16 15:51 98.8 128/61 11/21/16 10:40 Mechanical Ventilator Intake and Output 11/23/16 11/23/16 11/24/16 15:00 23:00 07:00 Intake Total 400 ml 320 ml 825 ml Output Total 2700 ml 80 ml 400 ml Balance -2300 ml 240 ml 425 ml Exam Constitutional: alert, oriented Psych: nl mood/affect, no complaints Head: atraumatic, normocephalic Eyes: EOMI, nl conjunctiva ENMT: nl external ears & nose Neck: supple Respiratory: clear to auscultation Cardiovascular: regular rate and rhythm Results Result Diagram: 11/24/16 0615 11/24/16 0615 Results 24 hrs Laboratory Tests Test 11/23/16 23:50 11/24/16 05:40 11/24/16 06:15 11/24/16 09:47 Bedside Glucose 139 138 White Blood Count 14.5 #H Red Blood Count 3.15 L Hemoglobin 8.8 L Hematocrit 28.9 L Mean Corpuscular Volume 91.7 Mean Corpuscular Hemoglobin 27.9 L Mean Corpuscular Hemoglobin Concent 30.4 L Red Cell Distribution Width 17.8 H Platelet Count 215 Mean Platelet Volume 10.6 H Neutrophils % 75.2 Lymphocytes % 14.8 L Monocytes % 5.5 Eosinophils % 4.1 Basophils % 0.1 Nucleated Red Blood Cells % 0.1 H Neutrophils # 10.9 H Lymphocytes # 2.1 Monocytes # 0.8 Eosinophils # 0.6 H Basophils # 0.0 Nucleated Red Blood Cells # 0.0 Sodium Level 139 Potassium Level 4.1 Chloride Level 102 Carbon Dioxide Level 23 Anion Gap 18 H Blood Urea Nitrogen 45 #H Creatinine 2.09 H Glucose Level 144 Calcium Level 8.4 Phosphorus Level 2.3 #L Magnesium Level 1.9 Hepatitis B Surface Antigen NEGATIVE Hepatitis B Core Total Antibody NEGATIVE Hepatitis C Antibody NEGATIVE Lactic Acid Level 4.1 *H Test 11/24/16 11:54 11/24/16 17:32 Bedside Glucose 118 114 Medications Medications Current Medications Heparin Sodium (Porcine) 5000 unit 5,000 unit Q12 SC Last administered on 08:55; Admin Dose 5,000 UNIT; Start 11/15/16 at 21:00 Linezolid (Zyvox 600mg/D5W (Pmx)) 300 ml @ 300 mls/hr Q12 IVPB Last administered on 11/24/16 08:47; Admin Dose 300 MLS/HR; Start 11/15/16 at 14:00 Miscellaneous Information 1 ea NOTE XX ; Start 11/16/16 at 01:30 Glucose (Glutose) 15 gm Q15M PRN PO DECREASED GLUCOSE; Start 11/16/16 at 01:30 Glucose (Glutose) 22.5 gm Q15M PRN PO DECREASED GLUCOSE; Start 11/16/16 at 01: 30 Dextrose (D50w Syringe) 25 ml Q15M PRN IV DECREASED GLUCOSE; Start 11/16/16 at 01:30 Dextrose (D50w Syringe) 50 ml Q15M PRN IV DECREASED GLUCOSE; Start 11/16/16 at 01:30 Glucagon (Glucagen) 1 mg Q15M PRN IM DECREASED GLUCOSE; Start 11/16/16 at 01:30 Glucose (Glutose) 15 gm Q15M PRN BUCCAL DECREASED GLUCOSE; Start 11/16/16 at 01 :30 Lansoprazole (Prevacid) 30 mg BID@06,18 PO Last administered on 11/24/16 17:30 ; Admin Dose 30 MG; Start 11/17/16 at 18:00 Ondansetron HCl (Zofran Inj) 4 mg Q4H PRN IV NAUSEA AND/OR VOMITING; Start 05/26 at 08:30 Insulin Aspart (Novolog Insulin Pen) NOVOLOG *MILD* ALGORI... Q6 SC Last administered on 11/23/16 12:01; Admin Dose 1 UNIT; Start 11/17/16 at 12:00 Acetaminophen (Tylenol Liquid) 650 mg Q4H PRN GTB PAIN AND OR ELEVATED TEMP; Start 11/21/16 at 09:00 Metronidazole (Flagyl) 500 mg Q8 PO Last administered on 11/24/16 13:58; Admin Dose 500 MG; Start 11/23/16 at 22:00 Sodium Phosphate (Neutra-Phos) 250 mg TID GTB Last administered on 11/24/16 13 :58; Admin Dose 250 MG; Start 11/24/16 at 10:00 RUBY ROY MD November 24, 2016 18:24
[2016-11-24] MEDS: EPOETIN 4000 UNITS/1 ML INJ (ESRD) SC SCH (18:54)
[2016-11-25] VITALS (31 sets, daily range): BP systolic 107–189; BP diastolic 56–92; PULSE 91–124; RESP 16–37
[2016-11-25] MEDS: ACETAMINOPHEN 650MG/20.3ML CUP GTB PRN ×2 (05:41→09:09)
[2016-11-25] MEDS: LANSOPRAZOLE 30 MG CAP PO SCH ×2 (05:45→17:24)
[2016-11-25] MEDS: INSULIN ASPART [NOVOLOG] 3 ML PEN SC SCH ×5 (05:45→23:34)
[2016-11-25 06:16] LABS: ADD SCAN DIFF NO
[2016-11-25 06:39] LABS: BASOPHILS % 0.3 % (0.0-2.0); EOSINOPHILS # 0.4 10^3/ul (0.0-0.5); EOSINOPHILS % 2.8 % (0.0-7.0); HEMATOCRIT 25.8 % (37.0-47.0); HEMOGLOBIN 8.1 g/dl (12.0-16.0); LYMPHOCYTES % 15.5 % (15.0-51.0); MEAN CORPUSCULAR HEMOGLOBIN 28.9 pg (29.0-33.0); MEAN CORPUSCULAR HGB CONC 31.4 g/dl (32.0-37.0); MEAN CORPUSCULAR VOLUME 92.1 fl (82.0-101.0); MEAN PLATELET VOLUME 10.7 fl (7.4-10.4); MONOCYTE # 0.7 10^3/ul (0.3-0.9); MONOCYTES % 5.3 % (0.0-11.0); NEUTROPHIL # 9.7 10^3/ul (1.6-7.5); NEUTROPHILS % 75.4 % (39.0-77.0); PLATELET COUNT 209 10^3/UL (140-415); RED CELL DISTRIBUTION WIDTH 17.7 % (11.5-14.5); WHITE BLOOD COUNT 12.9 10^3/ul (4.8-10.8)
[2016-11-25] MEDS ORDERED: LORAZEPAM 2 MG INJ ONE (06:45)
[2016-11-25] MEDS ORDERED: LORAZEPAM 2 MG INJ IV ONE (06:45)
[2016-11-25] MEDS ORDERED: LEVALBUTEROL (NEB) 0.63 MG/3 ML AMP ONE (06:49)
[2016-11-25 07:01] LABS: CALCIUM 8.7 mg/dl (8.4-10.2); CREATININE 2.48 mg/dl (0.44-1.00); MAGNESIUM 1.9 mg/dl (1.7-2.5); POTASSIUM 4.5 mmol/L (3.5-5.1)
--- NOTE | 2016-11-25 07:23 | RADRPT ---
PROCEDURE: XR Chest 1 View. CLINICAL INDICATION: Shortness of breath. TECHNIQUE: AP view of the chest was obtained. COMPARISON: Yesterday. FINDINGS: The heart size is within normal limits. Calcified atherosclerosis is noted in the aorta. Left-sided dual chamber pacemaker has its leads over the heart and appears stable. Right-sided dialysis janie ter is unchanged. Tracheostomy tube is stable and appears in grossly appropriate location. The clarissa gs are hypoinflated. Patchy right lower lobe infiltrates are stable. Right-sided PICC line is unch anged. Osseous structures are unchanged. IMPRESSION: Calcified atherosclerosis in the aorta. Hypoinflated lungs. Stable patchy right lower lobe infiltrates. RPTAT: AA .Henry Flores MD, MD Date Time Electronically viewed and signed by .Henry Flores MD, on 11/25/2016 07:23 .P/
--- NOTE | 2016-11-25 08:28 | PN ---
DATE: 11/25/2016 CARDIOLOGY FOLLOWUP PROGRESS NOTE SUBJECTIVE: Discussed with the staff. Rhythm strip was reviewed. The patient remains in sinus rhy thm. Has had episode NOVELTY DIPPER called when the patient became hypoxemic and has been placed on a higher l evel of oxygen. No reported chest pain or pressure. Currently, the patient is sedated and lethargi c, does not provide history. MEDICATIONS: Reviewed. PHYSICAL EXAMINATION: VITAL SIGNS: Temperature 98, heart rate of 88, blood pressure 122/62, respiratory rate of 17, satur ating 98%. HEENT: Normocephalic, atraumatic. NECK: Status post tracheostomy, on the vent. CARDIOVASCULAR: Regular rate and rhythm. PULMONARY: Mild rhonchi, diffuse. GASTROINTESTINAL: Soft, nontender. EXTREMITIES: Trivial edema. NEUROLOGIC: Sedated and lethargic now. LABORATORY: Shows WBC of 12.9, hemoglobin 8.1, platelets of 209. Sodium 135, potassium 4.5, BUN of 61, creatinine 2.48, glucose of 128. Chest x-ray done this morning shows stable patchy right lower lobe infiltrate, hypoinflated lungs. ASSESSMENT AND PLAN: 1. Atrial fibrillation, appeared to be paroxysmal, currently back in sinus rhythm. 2. Hypoxemic respiratory failure, status post tracheostomy. 3. History of congestive heart failure and fluid overload, currently appears to be euvolemic. 4. Renal failure, on dialysis now. 5. History of ____ neuropathy. 6. Diabetes. 7. Anemia, status post transfusions. RECOMMENDATIONS: We will continue with the respiratory care and support. Antibiotic as per interna l medicine and ID. Heart rate currently remains stable. Off all anticoagulants due to anemia requi ring multiple transfusions. Hemodialysis to be continued. Dictated By: KIAH GARCIA MD AV/SEEMA Conf#: [id number] DID#: [id number] CC: CHARLIE BUSBY DO;*EndCC*
[2016-11-25 08:31] LABS: AADO2 Arterial 395.8 mmHg (7.0-24.0); Allen Test ACCEPTAB; Arterial Base Excess -3.5 mmol/L (-3.0-3); Arterial COHb 0.3 % (0.0-3.0); Arterial Fraction of Oxyhgb 98.5 % (93.0-99.0); Arterial HCO3 21.1 mmol/L (22.0-26.0); Arterial MetHb 0.4 % (0.0-1.5); Arterial Total Hemglobin 10.4 g/dl (12.0-18.0); Blood Gas Low PEEP Setting 0 cmH2O; MODE VENT - AC
--- NOTE | 2016-11-25 08:32 | PN ---
Date/Time of Note Date/Time of Note DATE: 11/25/16 TIME: 08:03 Assessment/Plan VTE Prophylaxis VTE Prophylaxis Intervention: heparin Lines/Catheters IV [facility] PICC Line Central line still needed: Yes (Clinical condition) Urinary Cath still in place: Yes Reason Cath still needed: other (indicate) (Condition) Assessment/Plan Chief Complaint/Hosp Course This is a 66-year-old female in acute respiratory distress: #1 respiratory distress: Stat chest x-ray, troponins. Ativan 1 mg IV 1. Breathing treatment and Ambu bag. Patient progressed well through the PROMOTIONAL MODEL and appeared to stabilize with vital signs showing improvement with her blood pressure going to 120/71 pulse of 108 setting 100% and respirations down to 20- 22. Chest x-ray did show right-sided congestion versus developing pneumonia which was consistent with the x-ray from yesterday. She is currently on antibiotics. Primary care doctor Dr. Ndiaye was notified via the nurse. Please see the subjective portion for more detailed account of the PROMOTIONAL MODEL.. Problems: Subjective 24 Hr Interval Summary Free Text/Dictation PROMOTIONAL MODEL called this morning at approximately 6:40 AM. PROMOTIONAL MODEL was called by the nurse as patient appeared to be in respiratory distress. As per the nurse she was already looking in some mild distress even prior to starting dialysis however through the dialysis treatment she continued to become more agitated. Upon entering the room for the PROMOTIONAL MODEL I did see the patient in moderate distress she appeared dusky in appearance. Her blood pressure initially was 172/91 with a heart rate is going into the 140s she was satting at 97% via the trach connected to the vent and respirations were approximately 20-30. He was difficult to communicate with the patient secondary to her clinical condition however she did keep pointing to her trach. That time respiratory therapist began to bag the patient via the Ambu bag she also was given an Ativan 1 mg IV 1 and a breathing treatment. Stat chest x-ray was ordered which did show possible right-sided congestion versus infiltrate which is actually consistent from the x-ray yesterday. As the PROMOTIONAL MODEL progress the patient improved and she appeared comfortable with her blood pressure going down to 123/71 heart rate of 108 and satting 100% with a respirations being around 20-22. This patient appeared to be stable the PROMOTIONAL MODEL was finished and she was continued on her dialysis. Subjective hx not possible: pt critical Exam/Review of Systems Vital Signs Vitals Vital Signs Date Time Temp Pulse Resp B/P Pulse Ox O2 Delivery O2 Flow Rate FiO2 11/25/16 07:25 98.0 88 17 122/62 98 11/25/16 07:05 Ambu Bag Mechanical Ventilator Trach Collar 11/25/16 05:00 50 Intake and Output 11/24/16 11/24/16 11/25/16 15:00 23:00 07:00 Intake Total 876 ml Output Total 400 ml 900 ml Balance -400 ml -24 ml Exam General: P patient appeared in moderate distress initially PROMOTIONAL MODEL. HEENT: Atraumatic, normocephalic. The pupils are equal, round and reactive. Lungs: Increased work of breathing and use of accessory muscles. Heart: Normal S1-S2, Regular rhythm and rate. No murmur, S3, or S4 Abdomen: Soft , nontender, nondistended , bowel sounds are present. Extremities: Normal to inspection, no edema no cyanosis Neurologic: Alert and awake and trying to verbalize however secondary to her trach she was not able to. Skin: Patient's face did appear dusky however throughout the PROMOTIONAL MODEL she returned to her normal skin color. Additional Comments Chest x-ray was reviewed by me: Right-sided infiltrates versus congestion which is consistent from the x-ray yesterday. No signs of any pneumothorax. Results Result Diagram: 11/25/16 0520 11/25/16 0520 Results 24 hrs Laboratory Tests Test 11/24/16 09:47 11/24/16 11:54 11/24/16 17:32 11/25/16 00:00 Lactic Acid Level 4.1 *H Bedside Glucose 118 114 123 Test 11/25/16 05:20 11/25/16 05:43 11/25/16 06:40 11/25/16 06:57 White Blood Count 12.9 H Red Blood Count 2.80 L Hemoglobin 8.1 L Hematocrit 25.8 L Mean Corpuscular Volume 92.1 Mean Corpuscular Hemoglobin 28.9 L Mean Corpuscular Hemoglobin Concent 31.4 L Red Cell Distribution Width 17.7 H Platelet Count 209 Mean Platelet Volume 10.7 H Neutrophils % 75.4 Lymphocytes % 15.5 Monocytes % 5.3 Eosinophils % 2.8 Basophils % 0.3 Nucleated Red Blood Cells % 0.0 Neutrophils # 9.7 H Lymphocytes # 2.0 Monocytes # 0.7 Eosinophils # 0.4 Basophils # 0.0 Nucleated Red Blood Cells # 0.0 Sodium Level 135 Potassium Level 4.5 Chloride Level 100 Carbon Dioxide Level 22 Anion Gap 18 H Blood Urea Nitrogen 61 H Creatinine 2.48 H Glucose Level 128 Calcium Level 8.7 Phosphorus Level 3.0 Magnesium Level 1.9 Bedside Glucose 134 216 Troponin I 0.053 Medications Medications Current Medications Heparin Sodium (Porcine) 5000 unit 5,000 unit Q12 SC Last administered on 20:44; Admin Dose 5,000 UNIT; Start 11/15/16 at 21:00 Linezolid (Zyvox 600mg/D5W (Pmx)) 300 ml @ 300 mls/hr Q12 IVPB Last administered on 11/24/16 20:43; Admin Dose 300 MLS/HR; Start 11/15/16 at 14:00 Miscellaneous Information 1 ea NOTE XX ; Start 11/16/16 at 01:30 Glucose (Glutose) 15 gm Q15M PRN PO DECREASED GLUCOSE; Start 11/16/16 at 01:30 Glucose (Glutose) 22.5 gm Q15M PRN PO DECREASED GLUCOSE; Start 11/16/16 at 01: 30 Dextrose (D50w Syringe) 25 ml Q15M PRN IV DECREASED GLUCOSE; Start 11/16/16 at 01:30 Dextrose (D50w Syringe) 50 ml Q15M PRN IV DECREASED GLUCOSE; Start 11/16/16 at 01:30 Glucagon (Glucagen) 1 mg Q15M PRN IM DECREASED GLUCOSE; Start 11/16/16 at 01:30 Glucose (Glutose) 15 gm Q15M PRN BUCCAL DECREASED GLUCOSE; Start 11/16/16 at 01 :30 Lansoprazole (Prevacid) 30 mg BID@06,18 PO Last administered on 11/25/16 05:45 ; Admin Dose 30 MG; Start 11/17/16 at 18:00 Ondansetron HCl (Zofran Inj) 4 mg Q4H PRN IV NAUSEA AND/OR VOMITING; Start 05/26 at 08:30 Insulin Aspart (Novolog Insulin Pen) NOVOLOG *MILD* ALGORI... Q6 SC Last administered on 11/23/16 12:01; Admin Dose 1 UNIT; Start 11/17/16 at 12:00 Acetaminophen (Tylenol Liquid) 650 mg Q4H PRN GTB PAIN AND OR ELEVATED TEMP Last administered on 11/25/16 05:41; Admin Dose 650 MG; Start 11/21/16 at 09:00 Sodium Phosphate (Neutra-Phos) 250 mg TID GTB Last administered on 11/24/16 20 :43; Admin Dose 250 MG; Start 11/24/16 at 10:00 CAM RUIZ November 25, 2016 08:26
--- NOTE | 2016-11-25 08:36 | PN ---
DATE: 11/25/2016 SUBJECTIVE: The patient had a rapid response this morning as she was noted to be tachypneic. After given Ativan, the patient seemed to improved. Vitals improved. Currently on hemodialysis, tolerat ing without complications. No other acute events noted. OBJECTIVE: VITAL SIGNS: Blood pressure is 122/62, respiration 17, pulse 88, temperature 98.0. HEENT: Head is normocephalic. Pupils are reactive to light. NECK: Supple. HEART: Regular rate. LUNGS: Show diminished breath sounds at base. ABDOMEN: Soft and nontender to palpation. No rebound or guarding. EXTREMITIES: Negative for clubbing, cyanosis, edema. DERMATOLOGIC: No rashes. MUSCULOSKELETAL: No joint effusions. NEUROLOGIC: The patient is lethargic, limited exam, but no obvious focal deficits. LABORATORY DATA: Shows sodium 135, potassium 4.5, chloride 100, BUN 61, creatinine 2.48. White cou nt 12.9, hemoglobin 8.1, hematocrit 25.8, platelet count is 209. IMAGING: The patient's chest x-ray shows patchy right lower lobe infiltrate. C. diff was negative. ASSESSMENT AND PLAN: 1. Sepsis secondary to pneumonia, possible aspiration, possible healthcare-associated, urinary trac t infection. The patient's chest x-ray was reviewed. Repeat cultures have been reviewed. The delonte ent's white count has been trending down. Continue de-escalation of antibiotics per Infectious Dise ase. 2. Diarrhea. Underlying etiology is unclear, possibly related to recent antibiotic course versus g astroenteritis. The patient's stool for C. diff is negative. The patient's empiric Flagyl was disc ontinued. Continue to monitor. Continue probiotics. 3. Lactic acidosis. Etiology is likely secondary to underlying sepsis; however, we will continue t o monitor closely. We will consider CT scan of abdomen and pelvis. The patient has a benign abdomi nal exam, no clinical evidence of acute abdomen. We will monitor closely. 4. Acute encephalopathy. Etiology is toxic metabolic. Continue to monitor. 5. Ventilator dependent respiratory failure. The patient had a rapid response this morning. Curre ntly on 100% FIO2. Repeat chest x-ray shows pulmonary infiltrate. The patient's ABGs and vent sett ings have been reviewed. Follow up with Pulmonary 6. Dysphagia status post PEG. Continue tube feeding. 7. Acute kidney injury on top of chronic kidney disease, etiology secondary to acute tubular necros is. The patient has been dialysis dependent. We will continue to monitor. 8. Atrial fibrillation, currently rate controlled. Continue medical management. 9. Mineral bone disorder. Continue to monitor calcium and phosphorus levels. 10. History of congestive heart failure. Continue medical management. 11. History of breast cancer status post mastectomy. 12. Diabetes. Continue current insulin regimen. 13. Gastrointestinal and deep venous thrombosis prophylaxis. Continue proton pump inhibitor and he asia. Dictated By: CHARLIE BUSBY DO NR/NTS Conf#: [id number] DID#: [id number]
[2016-11-25] MEDS: NEUTRA-PHOS 250 MG PACKET GTB SCH ×3 (09:01→21:20)
[2016-11-25] MEDS: LINEZOLID 600 MG/D5W (PMX) 300 ML IVPB SCH ×2 (09:01→21:04)
[2016-11-25] MEDS: HEPARIN 5,000 UNIT/0.5 ML VIAL SC SCH ×2 (09:03→21:05)
--- NOTE | 2016-11-25 14:36 | CONS ---
Date/Time of Note Date/Time of Note DATE: 11/25/16 TIME: 14:35 Consult Date/Type/Reason Admit Date/Time November 15, 2016 at 06:52 Initial Consult Date 11/15/16 Type of Consultation: Pulmonary Ordering Provider: YAYO EDGAR DO Subjective Patient agitated early family at bedside No distress at present continues FiO2 50% Objective Vital Signs Date Time Temp Pulse Resp B/P Pulse Ox O2 Delivery O2 Flow Rate FiO2 11/25/16 12:00 93 11/25/16 11:45 36 93 50 11/25/16 11:12 98.1 109/57 11/25/16 07:05 Ambu Bag Mechanical Ventilator Trach Collar Intake and Output 11/24/16 11/24/16 11/25/16 15:00 23:00 07:00 Intake Total 876 ml Output Total 400 ml 900 ml Balance -400 ml -24 ml Exam PHYSICAL EXAMINATION GENERAL: Elderly lady on mechanical ventilation appears comfortable at rest VITAL SIGNS: see below. HEENT: Pupils equal, round, and reactive to light. Tracheostomy site clean and intact. CARDIAC: S1, S2, 1/6 systolic ejection murmur CHEST: Diminished air entry bilaterally. ABDOMEN: Mildly distended. Bowel sounds present no guarding or rebound EXTREMITIES: No cyanosis, clubbing edema +1 NEUROLOGIC: Generalized weakness Results/Medications Result Diagram: 11/25/16 0520 11/25/16 0520 Results 24 hrs Laboratory Tests Test 11/24/16 17:32 11/25/16 00:00 11/25/16 05:20 11/25/16 05:43 Bedside Glucose 114 123 134 White Blood Count 12.9 H Red Blood Count 2.80 L Hemoglobin 8.1 L Hematocrit 25.8 L Mean Corpuscular Volume 92.1 Mean Corpuscular Hemoglobin 28.9 L Mean Corpuscular Hemoglobin Concent 31.4 L Red Cell Distribution Width 17.7 H Platelet Count 209 Mean Platelet Volume 10.7 H Neutrophils % 75.4 Lymphocytes % 15.5 Monocytes % 5.3 Eosinophils % 2.8 Basophils % 0.3 Nucleated Red Blood Cells % 0.0 Neutrophils # 9.7 H Lymphocytes # 2.0 Monocytes # 0.7 Eosinophils # 0.4 Basophils # 0.0 Nucleated Red Blood Cells # 0.0 Sodium Level 135 Potassium Level 4.5 Chloride Level 100 Carbon Dioxide Level 22 Anion Gap 18 H Blood Urea Nitrogen 61 H Creatinine 2.48 H Glucose Level 128 Calcium Level 8.7 Phosphorus Level 3.0 Magnesium Level 1.9 Test 11/25/16 06:40 11/25/16 06:41 11/25/16 06:57 11/25/16 09:23 Bedside Glucose 216 Blood Gas Specimen Source Blood arterial Arterial Blood Date Drawn 11/25/2016 6:50:05 AM Arterial Blood pH (Temp corrected) 7.381 Arterial Blood pCO2 (Temp correct) 36.4 Arterial Blood pO2 (Temp corrected) 280.8 H Arterial Blood HCO3 21.1 L Arterial Blood Base Excess -3.5 L Arterial Blood Oxygen Saturation 99.2 H Ivan Test ACCEPTAB Arterial Blood Gas Puncture Site Right Radial Arterial Blood Carboxyhemoglobin 0.3 Arterial Blood Methemoglobin 0.4 Blood Gas A-a O2 Differential 395.8 H Oxyhemoglobin Percent 98.5 Total Hemoglobin 10.4 L Blood Gas Temperature 37.0 Blood Gas Respiration Rate 10.0 Blood Gas Actual Respiration Rate 24 Blood Gas Modality VENT - AC FiO2 100.0 Blood Gas Tidal Volume 500.0 Blood Gas Low PEEP Setting 0 Blood Gas Notified Whom JLD Blood Gas Notified Time 11/25/2016 7:07:28 AM Troponin I 0.053 Lactic Acid Level 3.5 H Test 11/25/16 12:18 Bedside Glucose 106 Medications Current Medications Heparin Sodium (Porcine) 5000 unit 5,000 unit Q12 SC Last administered on 09:03; Admin Dose 5,000 UNIT; Start 11/15/16 at 21:00 Linezolid (Zyvox 600mg/D5W (Pmx)) 300 ml @ 300 mls/hr Q12 IVPB Last administered on 11/25/16 09:01; Admin Dose 300 MLS/HR; Start 11/15/16 at 14:00 Miscellaneous Information 1 ea NOTE XX ; Start 11/16/16 at 01:30 Glucose (Glutose) 15 gm Q15M PRN PO DECREASED GLUCOSE; Start 11/16/16 at 01:30 Glucose (Glutose) 22.5 gm Q15M PRN PO DECREASED GLUCOSE; Start 11/16/16 at 01: 30 Dextrose (D50w Syringe) 25 ml Q15M PRN IV DECREASED GLUCOSE; Start 11/16/16 at 01:30 Dextrose (D50w Syringe) 50 ml Q15M PRN IV DECREASED GLUCOSE; Start 11/16/16 at 01:30 Glucagon (Glucagen) 1 mg Q15M PRN IM DECREASED GLUCOSE; Start 11/16/16 at 01:30 Glucose (Glutose) 15 gm Q15M PRN BUCCAL DECREASED GLUCOSE; Start 11/16/16 at 01 :30 Lansoprazole (Prevacid) 30 mg BID@06,18 PO Last administered on 11/25/16 05:45 ; Admin Dose 30 MG; Start 11/17/16 at 18:00 Ondansetron HCl (Zofran Inj) 4 mg Q4H PRN IV NAUSEA AND/OR VOMITING; Start 05/26 at 08:30 Insulin Aspart (Novolog Insulin Pen) NOVOLOG *MILD* ALGORI... Q6 SC Last administered on 11/23/16 12:01; Admin Dose 1 UNIT; Start 11/17/16 at 12:00 Acetaminophen (Tylenol Liquid) 650 mg Q4H PRN GTB PAIN AND OR ELEVATED TEMP Last administered on 11/25/16 09:09; Admin Dose 650 MG; Start 11/21/16 at 09:00 Sodium Phosphate (Neutra-Phos) 250 mg TID GTB Last administered on 11/25/16 12 :19; Admin Dose 250 MG; Start 11/24/16 at 10:00 Assessment/Plan Chief Complaint/Hosp Course Assessment 1. Patient admitted for sepsis from UTI possibly line sepsis, improved. 2. Chronic renal failure, on hemodialysis. 3. Chronic respiratory failure, now requiring invasive mechanical ventilation due to sepsis. 4. Advanced dementia. 5. History of cardiac arrhythmia. Status post pacemaker placement. 6. History of anemia Plan 1. Continue mechanical ventilation, decrease FiO2 as tolerated currently 50% 2. Status post transfusion stable 3. Continue tube feeding 4. Chest x-ray shows CHF and compressive atelectasis 5. Continue DVT and GI prophylaxis Discharge planning okay from pulmonary standpoint Problems: RHONDA BUENROSTRO MD, [facility] November 25, 2016 14:36
--- NOTE | 2016-11-25 17:41 | CONS ---
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 hominis and Enterococcus - Hx tooth abscess treated with amoxicillin - Diarrhea; c diff negative (hx C diff 10/05/2016 & at [facility] earlier this year) - Hx candiduria (C. 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 - VDRF with tracheostomy - Hx ARDS & COPD - PAF with RVR, converted back to SR - PPM - Acute on chronic diastolic HF - PREMA on CKD requiring HD (previously on CRRT at [facility] 08/2016) - ACD - Hx DIC and thrombocytopenia - Acute toxic metabolic encephalopathy - improving - Dysphagia s/p PEG - Hx R breast CA s/p bilateral mastectomies - Hx DVT per records from [facility] - Critical care polyneuropathy confirmed by EMG at [facility] ~08/2016 - Major depression - Allergy to vancomycin and erythromycin with detail unknown - Acute respiratory distress 11/25/2016 likely d/t anxiety Recommendations: - continue Linezolid (11/15/2016-) - trend WBC - probiotics management d/w Pt, ANAYELI Grady, and Dr. Rouse total time spent: 40 minutes including extensive review of chart and old medical records Problems: Consultation Date/Type/Reason Admit Date/Time November 15, 2016 at 06:52 Initial Consult Date 11/15/16 Type of Consultation: Infectious Disease Referring Provider: YAYO EDGAR DO 24 HR Interval Summary Free Text/Dictation [employer] called this AM for respiratory distress and pt improved after receiving Ativan per ANAYELI Grady. Nods no to c/o SOB and shrugs shoulders when asked if pt has pain. Subjective hx not possible: pt non-verbal Exam/Review of Systems Vital Signs Vitals Vital Signs Date Time Temp Pulse Resp B/P Pulse Ox O2 Delivery O2 Flow Rate FiO2 11/25/16 16:00 98 11/25/16 15:59 30 95 50 11/25/16 15:47 98.2 107/57 11/25/16 07:05 Ambu Bag Mechanical Ventilator Trach Collar Intake and Output 11/24/16 11/24/16 11/25/16 15:00 23:00 07:00 Intake Total 876 ml Output Total 400 ml 900 ml Balance -400 ml -24 ml Exam Constitutional: alert, frail, oriented Psych: other (calm) Head: atraumatic, normocephalic Eyes: nl sclera ENMT: other (declines to open mouth for examination) Neck: other (tracheostomy intact) Respiratory: diminished breath sounds Cardiovascular: regular rate and rhythm Gastrointestinal: distended (mildly), other (G tube intact with tube feeds; rectal tube intact with liquid dark brown stool), soft Genitourinary - Female: other (incontinent of urine; wearing diaper) Musculoskeletal: muscle weakness Extremities: No cyanosis, No edema 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: lethargic Skin: nl turgor, other (Right chest wall permacath and RUE PICC intact with no e/o infection) Results Result Diagram: 11/25/16 0520 11/25/16 0520 Results 24 hrs Laboratory Tests Test 11/24/16 17:32 11/25/16 00:00 11/25/16 05:20 11/25/16 05:43 Bedside Glucose 114 123 134 White Blood Count 12.9 H Red Blood Count 2.80 L Hemoglobin 8.1 L Hematocrit 25.8 L Mean Corpuscular Volume 92.1 Mean Corpuscular Hemoglobin 28.9 L Mean Corpuscular Hemoglobin Concent 31.4 L Red Cell Distribution Width 17.7 H Platelet Count 209 Mean Platelet Volume 10.7 H Neutrophils % 75.4 Lymphocytes % 15.5 Monocytes % 5.3 Eosinophils % 2.8 Basophils % 0.3 Nucleated Red Blood Cells % 0.0 Neutrophils # 9.7 H Lymphocytes # 2.0 Monocytes # 0.7 Eosinophils # 0.4 Basophils # 0.0 Nucleated Red Blood Cells # 0.0 Sodium Level 135 Potassium Level 4.5 Chloride Level 100 Carbon Dioxide Level 22 Anion Gap 18 H Blood Urea Nitrogen 61 H Creatinine 2.48 H Glucose Level 128 Calcium Level 8.7 Phosphorus Level 3.0 Magnesium Level 1.9 Test 11/25/16 06:40 11/25/16 06:41 11/25/16 06:57 11/25/16 09:23 Bedside Glucose 216 Blood Gas Specimen Source Blood arterial Arterial Blood Date Drawn 11/25/2016 6:50:05 AM Arterial Blood pH (Temp corrected) 7.381 Arterial Blood pCO2 (Temp correct) 36.4 Arterial Blood pO2 (Temp corrected) 280.8 H Arterial Blood HCO3 21.1 L Arterial Blood Base Excess -3.5 L Arterial Blood Oxygen Saturation 99.2 H Ivan Test ACCEPTAB Arterial Blood Gas Puncture Site Right Radial Arterial Blood Carboxyhemoglobin 0.3 Arterial Blood Methemoglobin 0.4 Blood Gas A-a O2 Differential 395.8 H Oxyhemoglobin Percent 98.5 Total Hemoglobin 10.4 L Blood Gas Temperature 37.0 Blood Gas Respiration Rate 10.0 Blood Gas Actual Respiration Rate 24 Blood Gas Modality VENT - AC FiO2 100.0 Blood Gas Tidal Volume 500.0 Blood Gas Low PEEP Setting 0 Blood Gas Notified Whom JLD Blood Gas Notified Time 11/25/2016 7:07:28 AM Troponin I 0.053 Lactic Acid Level 3.5 H Test 11/25/16 12:18 Bedside Glucose 106 Medications Medications Current Medications Heparin Sodium (Porcine) 5000 unit 5,000 unit Q12 SC Last administered on 09:03; Admin Dose 5,000 UNIT; Start 11/15/16 at 21:00 Linezolid (Zyvox 600mg/D5W (Pmx)) 300 ml @ 300 mls/hr Q12 IVPB Last administered on 11/25/16 09:01; Admin Dose 300 MLS/HR; Start 11/15/16 at 14:00 Miscellaneous Information 1 ea NOTE XX ; Start 11/16/16 at 01:30 Glucose (Glutose) 15 gm Q15M PRN PO DECREASED GLUCOSE; Start 11/16/16 at 01:30 Glucose (Glutose) 22.5 gm Q15M PRN PO DECREASED GLUCOSE; Start 11/16/16 at 01: 30 Dextrose (D50w Syringe) 25 ml Q15M PRN IV DECREASED GLUCOSE; Start 11/16/16 at 01:30 Dextrose (D50w Syringe) 50 ml Q15M PRN IV DECREASED GLUCOSE; Start 11/16/16 at 01:30 Glucagon (Glucagen) 1 mg Q15M PRN IM DECREASED GLUCOSE; Start 11/16/16 at 01:30 Glucose (Glutose) 15 gm Q15M PRN BUCCAL DECREASED GLUCOSE; Start 11/16/16 at 01 :30 Lansoprazole (Prevacid) 30 mg BID@06,18 PO Last administered on 11/25/16 05:45 ; Admin Dose 30 MG; Start 11/17/16 at 18:00 Ondansetron HCl (Zofran Inj) 4 mg Q4H PRN IV NAUSEA AND/OR VOMITING; Start 05/26 at 08:30 Insulin Aspart (Novolog Insulin Pen) NOVOLOG *MILD* ALGORI... Q6 SC Last administered on 11/23/16 12:01; Admin Dose 1 UNIT; Start 11/17/16 at 12:00 Acetaminophen (Tylenol Liquid) 650 mg Q4H PRN GTB PAIN AND OR ELEVATED TEMP Last administered on 11/25/16 09:09; Admin Dose 650 MG; Start 11/21/16 at 09:00 Sodium Phosphate (Neutra-Phos) 250 mg TID GTB Last administered on 11/25/16 12 :19; Admin Dose 250 MG; Start 11/24/16 at 10:00 Procedures Procedures CXR 11/25/16: Calcified atherosclerosis in the aorta. Hypoinflated lungs. Stable patchy right lower lobe infiltrates. DRAGAN NAVA GRAPE GROWER November 25, 2016 17:24
[2016-11-25] MEDS ORDERED: LEVALBUTEROL (NEB) 0.63 MG/3 ML AMP HHN PRN (20:00)
[2016-11-25] MEDS: LEVALBUTEROL (HFA) 15 GM INHALER INH PRN (21:08)
[2016-11-25] MEDS: IPRATROPIUM (HFA) 12.9 GM INHALER INH PRN (21:09)
[2016-11-26] VITALS (24 sets, daily range): BP systolic 94–110; BP diastolic 56–75; PULSE 87–95; RESP 17–32
[2016-11-26] MEDS ORDERED: VITAMIN A & D 5 GM OINT PACKET TOP ONE (04:00)
[2016-11-26] MEDS: LANSOPRAZOLE 30 MG CAP PO SCH ×2 (05:27→17:27)
[2016-11-26] MEDS: INSULIN ASPART [NOVOLOG] 3 ML PEN SC SCH ×3 (05:27→17:36)
[2016-11-26 06:52] LABS: ADD SCAN DIFF NO
[2016-11-26 06:55] LABS: BASOPHIL # 0.1 10^3/ul (0.0-0.1); BASOPHILS % 0.4 % (0.0-2.0); EOSINOPHILS # 0.5 10^3/ul (0.0-0.5); EOSINOPHILS % 4.4 % (0.0-7.0); HEMATOCRIT 26.3 % (37.0-47.0); HEMOGLOBIN 8.1 g/dl (12.0-16.0); LYMPHOCYTES # 1.8 10^3/ul (0.8-2.9); LYMPHOCYTES % 15.3 % (15.0-51.0); MEAN CORPUSCULAR HEMOGLOBIN 28.4 pg (29.0-33.0); MEAN CORPUSCULAR HGB CONC 30.8 g/dl (32.0-37.0); MEAN CORPUSCULAR VOLUME 92.3 fl (82.0-101.0); MEAN PLATELET VOLUME 11.4 fl (7.4-10.4); MONOCYTE # 0.8 10^3/ul (0.3-0.9); MONOCYTES % 6.5 % (0.0-11.0); NEUTROPHIL # 8.7 10^3/ul (1.6-7.5); NEUTROPHILS % 73.1 % (39.0-77.0); PLATELET COUNT 212 10^3/UL (140-415); RED BLOOD COUNT 2.85 10^6/ul (4.20-5.40); WHITE BLOOD COUNT 11.9 10^3/ul (4.8-10.8)
[2016-11-26 07:18] LABS: CALCIUM 9.3 mg/dl (8.4-10.2); CREATININE 2.03 mg/dl (0.44-1.00); PHOSPHORUS 3.8 mg/dl (2.5-4.9); POTASSIUM 4.1 mmol/L (3.5-5.1)
--- NOTE | 2016-11-26 08:37 | PN ---
DATE: 11/26/2016 CARDIOLOGY CONSULTATION Discussed with the staff. Rhythm strip was reviewed. The patient remains in sinus rhythm, ____ fib rillation. Denies any chest pain or pressure to me. Still on the vent at 50% oxygen. MEDICATIONS: Reviewed as per medication reconciliation, personally reviewed. PHYSICAL EXAMINATION: VITAL SIGNS: Temperature 98.6, heart rate of 93, blood pressure 94/58, respiration rate of 18, satu rating 98%. HEENT: Normocephalic, atraumatic. Thin female. Pupils are equal. NECK: Status post tracheostomy, on the vent. CARDIOVASCULAR: Regular rate and rhythm, systolic murmur. CHEST: Status post surgery on the breast. Status post right-sided hemodialysis access in place. GASTROINTESTINAL : Soft, nontender. Status post PEG. EXTREMITIES: With trivial lower extremity edema. NEUROLOGIC: Awake. PSYCHIATRIC: Anxious. LABORATORY: WBC of 11.2, hemoglobin 8.1, platelets 212. Sodium 140, potassium 4.1, BUN of 47, crea tinine 2.03, glucose 112. ASSESSMENT AND PLAN: 1. Paroxysmal atrial fibrillation, currently back in sinus rhythm and remained stable. 2. Hypoxemia with hypercapnic respiratory failure, status post tracheostomy. 3. Status post sepsis and shock, currently blood pressure has improved. 4. History of congestive heart failure, fluid overload, currently appears to be stable. 5. Dysphagia, status post percutaneous endoscopic gastrostomy placement. 6. Renal failure on dialysis. 7. History of critical care polyneuropathy. 8. Diabetes on insulin. 9. Severe anemia, status multiple transfusions, unable to anticoagulate. RECOMMENDATIONS: We will continue with the current cardiac care. Monitor on telemetry and respirat ory care will be continued. Dialysis as per renal. Anticoagulation is still on hold due to concern about the bleeding and severe anemia. Monitor on telemetry. Dictated By: KIAH RAINES/SEEMA Conf#: [id number] DID#: [id number] CC: CHARLIE BUSBY DO;*EndCC*
[2016-11-26] MEDS: LINEZOLID 600 MG/D5W (PMX) 300 ML IVPB SCH ×2 (09:23→21:04)
[2016-11-26] MEDS: NEUTRA-PHOS 250 MG PACKET GTB SCH ×3 (09:23→21:04)
[2016-11-26] MEDS: HEPARIN 5,000 UNIT/0.5 ML VIAL SC SCH ×2 (09:33→21:05)
--- NOTE | 2016-11-26 10:00 | CONS ---
Date/Time of Note Date/Time of Note DATE: 11/26/16 TIME: 09:58 Consult Date/Type/Reason Admit Date/Time November 15, 2016 at 06:52 Initial Consult Date 11/15/16 Type of Consultation: neph Ordering Provider: YAYO EDGAR DO Subjective had paper machine back tender yesterday but still able to tolerate hd. No other acute events noted. OBJECTIVE: HEENT: Head is normocephalic. Pupils are reactive to light. NECK: Supple. HEART: Regular rate. LUNGS: Show diminished breath sounds at base. ABDOMEN: Soft and nontender to palpation. No rebound or guarding. EXTREMITIES: Negative for clubbing, cyanosis, edema. DERMATOLOGIC: No rashes. MUSCULOSKELETAL: No joint effusions. NEUROLOGIC: The patient is lethargic, limited exam, but no obvious focal deficits. Objective Vital Signs Date Time Temp Pulse Resp B/P Pulse Ox O2 Delivery O2 Flow Rate FiO2 11/26/16 09:08 93 11/26/16 07:45 98.6 18 94/58 98 11/26/16 07:30 50 11/25/16 07:05 Ambu Bag Mechanical Ventilator Trach Collar Intake and Output 11/25/16 11/25/16 11/26/16 14:59 22:59 06:59 Intake Total 500 ml 920 ml 620 ml Output Total 3900 ml 300 ml 300 ml Balance -3400 ml 620 ml 320 ml Results/Medications Result Diagram: 11/26/16 0615 11/26/16 0615 Results 24 hrs Laboratory Tests Test 11/25/16 12:18 11/25/16 17:22 11/25/16 23:33 11/26/16 05:25 Bedside Glucose 106 119 140 115 Test 11/26/16 06:15 White Blood Count 11.9 H Red Blood Count 2.85 L Hemoglobin 8.1 L Hematocrit 26.3 L Mean Corpuscular Volume 92.3 Mean Corpuscular Hemoglobin 28.4 L Mean Corpuscular Hemoglobin Concent 30.8 L Red Cell Distribution Width 18.0 H Platelet Count 212 Mean Platelet Volume 11.4 H Neutrophils % 73.1 Lymphocytes % 15.3 Monocytes % 6.5 Eosinophils % 4.4 Basophils % 0.4 Nucleated Red Blood Cells % 0.0 Neutrophils # 8.7 H Lymphocytes # 1.8 Monocytes # 0.8 Eosinophils # 0.5 Basophils # 0.1 Nucleated Red Blood Cells # 0.0 Sodium Level 140 Potassium Level 4.1 Chloride Level 104 Carbon Dioxide Level 25 Anion Gap 15 Blood Urea Nitrogen 47 #H Creatinine 2.03 H Glucose Level 112 Calcium Level 9.3 Phosphorus Level 3.8 Magnesium Level 2.0 Medications Current Medications Heparin Sodium (Porcine) 5000 unit 5,000 unit Q12 SC Last administered on 09:33; Admin Dose 5,000 UNIT; Start 11/15/16 at 21:00 Linezolid (Zyvox 600mg/D5W (Pmx)) 300 ml @ 300 mls/hr Q12 IVPB Last administered on 11/26/16 09:23; Admin Dose 300 MLS/HR; Start 11/15/16 at 14:00 Miscellaneous Information 1 ea NOTE XX ; Start 11/16/16 at 01:30 Glucose (Glutose) 15 gm Q15M PRN PO DECREASED GLUCOSE; Start 11/16/16 at 01:30 Glucose (Glutose) 22.5 gm Q15M PRN PO DECREASED GLUCOSE; Start 11/16/16 at 01: 30 Dextrose (D50w Syringe) 25 ml Q15M PRN IV DECREASED GLUCOSE; Start 11/16/16 at 01:30 Dextrose (D50w Syringe) 50 ml Q15M PRN IV DECREASED GLUCOSE; Start 11/16/16 at 01:30 Glucagon (Glucagen) 1 mg Q15M PRN IM DECREASED GLUCOSE; Start 11/16/16 at 01:30 Glucose (Glutose) 15 gm Q15M PRN BUCCAL DECREASED GLUCOSE; Start 11/16/16 at 01 :30 Lansoprazole (Prevacid) 30 mg BID@06,18 PO Last administered on 11/26/16 05:27 ; Admin Dose 30 MG; Start 11/17/16 at 18:00 Ondansetron HCl (Zofran Inj) 4 mg Q4H PRN IV NAUSEA AND/OR VOMITING; Start 05/26 at 08:30 Insulin Aspart (Novolog Insulin Pen) NOVOLOG *MILD* ALGORI... Q6 SC Last administered on 11/23/16 12:01; Admin Dose 1 UNIT; Start 11/17/16 at 12:00 Acetaminophen (Tylenol Liquid) 650 mg Q4H PRN GTB PAIN AND OR ELEVATED TEMP Last administered on 11/25/16 09:09; Admin Dose 650 MG; Start 11/21/16 at 09:00 Sodium Phosphate (Neutra-Phos) 250 mg TID GTB Last administered on 11/26/16 09 :23; Admin Dose 250 MG; Start 11/24/16 at 10:00 Assessment/Plan Chief Complaint/Hosp Course 1. Sepsis secondary to pneumonia, possible aspiration, possible healthcare- associated, urinary tract infection. The patient's chest x-ray was reviewed. Repeat cultures have been reviewed. The patient's white count has been trending down. Continue de-escalation of antibiotics per Infectious Disease. 2. Diarrhea. Underlying etiology is unclear, possibly related to recent antibiotic course versus gastroenteritis. The patient's stool for C. diff is negative. The patient's empiric Flagyl was discontinued. Continue to monitor. Continue probiotics. 3. Lactic acidosis. Etiology is likely secondary to underlying sepsis; however , we will continue to monitor closely. We will consider CT scan of abdomen and pelvis. The patient has a benign abdominal exam, no clinical evidence of acute abdomen. We will monitor closely. 4. Acute encephalopathy. Etiology is toxic metabolic. Continue to monitor. 5. Ventilator dependent respiratory failure. The patient had a rapid response this morning. Currently on 100% FIO2. Repeat chest x-ray shows pulmonary infiltrate. The patient's ABGs and vent settings have been reviewed. Follow up with Pulmonary 6. Dysphagia status post PEG. Continue tube feeding. 7. Acute kidney injury on top of chronic kidney disease, etiology secondary to acute tubular necrosis. The patient has been dialysis dependent. We will continue to monitor. 8. Atrial fibrillation, currently rate controlled. Continue medical management. 9. Mineral bone disorder. Continue to monitor calcium and phosphorus levels. 10. History of congestive heart failure. Continue medical management. 11. History of breast cancer status post mastectomy. 12. Diabetes. Continue current insulin regimen. 13. Gastrointestinal and deep venous thrombosis prophylaxis. Continue proton pump inhibitor and heparin. Problems: TAMMIE HDZ MD November 26, 2016 10:00
--- NOTE | 2016-11-26 16:48 | CONS ---
Date/Time of Note Date/Time of Note DATE: 11/26/16 TIME: 16:46 Assessment/Plan Assessment/Plan Additional Assessment/Plan Ventilator setting; AC of 10, tidal volume 500, PEEP of 5, 50% FiO2. Assessment recommendations; 1. Patient admitted for UTI and sepsis clinically improving. 2. Chronic respiratory failure, ventilator dependent. 3. End-stage renal disease, on hemodialysis. 4. Generalized muscular weakness. Continue current treatment. Consultation Date/Type/Reason Admit Date/Time November 15, 2016 at 06:52 Initial Consult Date 11/15/16 Type of Consultation: Pulmonary Referring Provider: YAYO EDGAR DO 24 HR Interval Summary Free Text/Dictation Patient condition is stable. Remains awake and alert. Remains ventilator dependent. Has remained hemodynamically stable. General exam; elderly woman, awake alert, currently in no distress. Exam/Review of Systems Vital Signs Vitals Vital Signs Date Time Temp Pulse Resp B/P Pulse Ox O2 Delivery O2 Flow Rate FiO2 11/26/16 16:30 90 11/26/16 16:07 98.6 18 108/73 98 11/26/16 15:10 50 11/25/16 07:05 Ambu Bag Mechanical Ventilator Trach Collar Intake and Output 11/25/16 11/25/16 11/26/16 15:00 23:00 07:00 Intake Total 500 ml 920 ml 620 ml Output Total 3900 ml 300 ml 300 ml Balance -3400 ml 620 ml 320 ml Exam HEENT exam; supple neck, no JVD. No lymphadenopathy. Midline trachea. No thyromegaly. Patient is edentulous. Tracheostomy in place with clean insertion site. Chest exam; diminished but clear vessel bilaterally. S1-S2 audible, no murmurs. Regular rhythm. Abdomen examination; soft, nontender. G-tube in place. Bowel is audible. Extremity exam; no peripheral edema. FOREST EXAMINER examination; there is no focal deficit, however patient does have generalized muscular weakness. Results Result Diagram: 11/26/16 0615 11/26/16 0615 Results 24 hrs Laboratory Tests Test 11/25/16 17:22 11/25/16 23:33 11/26/16 05:25 11/26/16 06:15 Bedside Glucose 119 140 115 White Blood Count 11.9 H Red Blood Count 2.85 L Hemoglobin 8.1 L Hematocrit 26.3 L Mean Corpuscular Volume 92.3 Mean Corpuscular Hemoglobin 28.4 L Mean Corpuscular Hemoglobin Concent 30.8 L Red Cell Distribution Width 18.0 H Platelet Count 212 Mean Platelet Volume 11.4 H Neutrophils % 73.1 Lymphocytes % 15.3 Monocytes % 6.5 Eosinophils % 4.4 Basophils % 0.4 Nucleated Red Blood Cells % 0.0 Neutrophils # 8.7 H Lymphocytes # 1.8 Monocytes # 0.8 Eosinophils # 0.5 Basophils # 0.1 Nucleated Red Blood Cells # 0.0 Sodium Level 140 Potassium Level 4.1 Chloride Level 104 Carbon Dioxide Level 25 Anion Gap 15 Blood Urea Nitrogen 47 #H Creatinine 2.03 H Glucose Level 112 Calcium Level 9.3 Phosphorus Level 3.8 Magnesium Level 2.0 Test 11/26/16 12:53 Bedside Glucose 112 Medications Medications Current Medications Heparin Sodium (Porcine) 5000 unit 5,000 unit Q12 SC Last administered on 09:33; Admin Dose 5,000 UNIT; Start 11/15/16 at 21:00 Linezolid (Zyvox 600mg/D5W (Pmx)) 300 ml @ 300 mls/hr Q12 IVPB Last administered on 11/26/16 09:23; Admin Dose 300 MLS/HR; Start 11/15/16 at 14:00 Miscellaneous Information 1 ea NOTE XX ; Start 11/16/16 at 01:30 Glucose (Glutose) 15 gm Q15M PRN PO DECREASED GLUCOSE; Start 11/16/16 at 01:30 Glucose (Glutose) 22.5 gm Q15M PRN PO DECREASED GLUCOSE; Start 11/16/16 at 01: 30 Dextrose (D50w Syringe) 25 ml Q15M PRN IV DECREASED GLUCOSE; Start 11/16/16 at 01:30 Dextrose (D50w Syringe) 50 ml Q15M PRN IV DECREASED GLUCOSE; Start 11/16/16 at 01:30 Glucagon (Glucagen) 1 mg Q15M PRN IM DECREASED GLUCOSE; Start 11/16/16 at 01:30 Glucose (Glutose) 15 gm Q15M PRN BUCCAL DECREASED GLUCOSE; Start 11/16/16 at 01 :30 Lansoprazole (Prevacid) 30 mg BID@06,18 PO Last administered on 11/26/16 05:27 ; Admin Dose 30 MG; Start 11/17/16 at 18:00 Ondansetron HCl (Zofran Inj) 4 mg Q4H PRN IV NAUSEA AND/OR VOMITING; Start 05/26 at 08:30 Insulin Aspart (Novolog Insulin Pen) NOVOLOG *MILD* ALGORI... Q6 SC Last administered on 11/23/16 12:01; Admin Dose 1 UNIT; Start 11/17/16 at 12:00 Acetaminophen (Tylenol Liquid) 650 mg Q4H PRN GTB PAIN AND OR ELEVATED TEMP Last administered on 11/25/16 09:09; Admin Dose 650 MG; Start 11/21/16 at 09:00 Sodium Phosphate (Neutra-Phos) 250 mg TID GTB Last administered on 11/26/16 15 :00; Admin Dose 250 MG; Start 11/24/16 at 10:00 JUSTIN LINARES November 26, 2016 16:48
--- NOTE | 2016-11-26 17:42 | CONS ---
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 hominis and Enterococcus - Hx tooth abscess treated with amoxicillin - Diarrhea; c diff negative (hx C diff 10/05/2016 & at [facility] earlier this year) - Hx candiduria (C. 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 - VDRF with tracheostomy - Hx ARDS & COPD - PAF with RVR, converted back to SR - PPM - Acute on chronic diastolic HF - PREMA on CKD requiring HD (previously on CRRT at [facility] 08/2016) - ACD - Hx DIC and thrombocytopenia - Acute toxic metabolic encephalopathy - improving - Dysphagia s/p PEG - Hx R breast CA s/p bilateral mastectomies - Hx DVT per records from [facility] - Critical care polyneuropathy confirmed by EMG at [facility] ~08/2016 - Major depression - Allergy to vancomycin and erythromycin with detail unknown - Acute respiratory distress 11/25/2016 likely d/t anxiety Recommendations: - finish course of Linezolid (11/15/2016-) - trend WBC - probiotics Problems: Consultation Date/Type/Reason Admit Date/Time November 15, 2016 at 06:52 Initial Consult Date 11/15/16 Type of Consultation: id Referring Provider: YAYO EDGAR DO Exam/Review of Systems Vital Signs Vitals Vital Signs Date Time Temp Pulse Resp B/P Pulse Ox O2 Delivery O2 Flow Rate FiO2 11/26/16 17:05 93 25 95 50 11/26/16 16:07 98.6 108/73 11/25/16 07:05 Ambu Bag Mechanical Ventilator Trach Collar Intake and Output 11/25/16 11/25/16 11/26/16 15:00 23:00 07:00 Intake Total 500 ml 920 ml 620 ml Output Total 3900 ml 300 ml 300 ml Balance -3400 ml 620 ml 320 ml Results Result Diagram: 11/26/16 0615 11/26/16 0615 Results 24 hrs Laboratory Tests Test 11/25/16 23:33 11/26/16 05:25 11/26/16 06:15 11/26/16 12:53 Bedside Glucose 140 115 112 White Blood Count 11.9 H Red Blood Count 2.85 L Hemoglobin 8.1 L Hematocrit 26.3 L Mean Corpuscular Volume 92.3 Mean Corpuscular Hemoglobin 28.4 L Mean Corpuscular Hemoglobin Concent 30.8 L Red Cell Distribution Width 18.0 H Platelet Count 212 Mean Platelet Volume 11.4 H Neutrophils % 73.1 Lymphocytes % 15.3 Monocytes % 6.5 Eosinophils % 4.4 Basophils % 0.4 Nucleated Red Blood Cells % 0.0 Neutrophils # 8.7 H Lymphocytes # 1.8 Monocytes # 0.8 Eosinophils # 0.5 Basophils # 0.1 Nucleated Red Blood Cells # 0.0 Sodium Level 140 Potassium Level 4.1 Chloride Level 104 Carbon Dioxide Level 25 Anion Gap 15 Blood Urea Nitrogen 47 #H Creatinine 2.03 H Glucose Level 112 Calcium Level 9.3 Phosphorus Level 3.8 Magnesium Level 2.0 Medications Medications Current Medications Heparin Sodium (Porcine) 5000 unit 5,000 unit Q12 SC Last administered on 09:33; Admin Dose 5,000 UNIT; Start 11/15/16 at 21:00 Linezolid (Zyvox 600mg/D5W (Pmx)) 300 ml @ 300 mls/hr Q12 IVPB Last administered on 11/26/16 09:23; Admin Dose 300 MLS/HR; Start 11/15/16 at 14:00 Miscellaneous Information 1 ea NOTE XX ; Start 11/16/16 at 01:30 Glucose (Glutose) 15 gm Q15M PRN PO DECREASED GLUCOSE; Start 11/16/16 at 01:30 Glucose (Glutose) 22.5 gm Q15M PRN PO DECREASED GLUCOSE; Start 11/16/16 at 01: 30 Dextrose (D50w Syringe) 25 ml Q15M PRN IV DECREASED GLUCOSE; Start 11/16/16 at 01:30 Dextrose (D50w Syringe) 50 ml Q15M PRN IV DECREASED GLUCOSE; Start 11/16/16 at 01:30 Glucagon (Glucagen) 1 mg Q15M PRN IM DECREASED GLUCOSE; Start 11/16/16 at 01:30 Glucose (Glutose) 15 gm Q15M PRN BUCCAL DECREASED GLUCOSE; Start 11/16/16 at 01 :30 Lansoprazole (Prevacid) 30 mg BID@06,18 PO Last administered on 11/26/16 17:27 ; Admin Dose 30 MG; Start 11/17/16 at 18:00 Ondansetron HCl (Zofran Inj) 4 mg Q4H PRN IV NAUSEA AND/OR VOMITING; Start 05/26 at 08:30 Insulin Aspart (Novolog Insulin Pen) NOVOLOG *MILD* ALGORI... Q6 SC Last administered on 11/23/16 12:01; Admin Dose 1 UNIT; Start 11/17/16 at 12:00 Acetaminophen (Tylenol Liquid) 650 mg Q4H PRN GTB PAIN AND OR ELEVATED TEMP Last administered on 11/25/16 09:09; Admin Dose 650 MG; Start 11/21/16 at 09:00 Sodium Phosphate (Neutra-Phos) 250 mg TID GTB Last administered on 11/26/16 15 :00; Admin Dose 250 MG; Start 11/24/16 at 10:00 RUBY ROY MD November 26, 2016 17:42
[2016-11-26] MEDS: LEVALBUTEROL (HFA) 15 GM INHALER INH PRN (20:04)
[2016-11-26] MEDS: IPRATROPIUM (HFA) 12.9 GM INHALER INH PRN (20:04)
[2016-11-27] VITALS (23 sets, daily range): BP systolic 104–156; BP diastolic 61–80; PULSE 89–100; RESP 18–32
[2016-11-27] MEDS: INSULIN ASPART [NOVOLOG] 3 ML PEN SC SCH ×4 (06:00→17:37)
[2016-11-27] MEDS: LANSOPRAZOLE 30 MG CAP GTB SCH ×2 (06:12→17:37)
[2016-11-27] MEDS: LINEZOLID 600 MG/D5W (PMX) 300 ML IVPB SCH ×2 (08:37→22:12)
[2016-11-27] MEDS: NEUTRA-PHOS 250 MG PACKET GTB SCH ×3 (08:37→22:11)
[2016-11-27] MEDS: HEPARIN 5,000 UNIT/0.5 ML VIAL SC SCH ×2 (08:46→22:18)
--- NOTE | 2016-11-27 09:14 | PN ---
DATE: 11/27/2016 CARDIOLOGY FOLLOWUP SUBJECTIVE: Discussed with the staff. The patient remains in sinus rhythm. No more episodes of at rial fibrillation. Still on the vent though. Nonverbal. MEDICATIONS: Reviewed. OBJECTIVE: VITAL SIGNS: Temperature 98, heart rate of 97, blood pressure 156/66, respiration rate of 20, satur ating 99%. HEENT: Normocephalic, atraumatic. Cachectic female. Status post tracheostomy, on the vent. Eyes: Pupils equal and round. CARDIOVASCULAR: Regular rate and rhythm, systolic murmur. PULMONARY: With no wheezes anteriorly, mild rhonchi at the base. GASTROINTESTINAL: Soft, nontender. Status post PEG placement. EXTREMITIES: With positive lower extremity edema. NEUROLOGIC: Opens eyes, responds appropriately. PSYCHIATRIC: Depressed but overall stable. SKIN: There are multiple ecchymoses. LABORATORY: WBC of 11.9, hemoglobin 8.1, platelets 212 as of yesterday. Most recent one, glucose t his morning was 108. ASSESSMENT AND PLAN: 1. Hypoxemic hypercapnic respiratory failure, status post tracheostomy. 2. Atrial fibrillation, paroxysmal, currently back in sinus rhythm. 3. Severe anemia off of anticoagulation now. 4. History of hypertension, currently hypotensive. 5. History of congestive heart failure with diastolic dysfunction. 6. Renal failure on dialysis. 7. Diabetes, on insulin. RECOMMENDATIONS: We will continue with the current cardiac care. Continue respiratory care. Diabe tic control as per internal medicine will be continued. Respiratory care will be continued. Dictated By: KIAH RAINES/SEEMA Conf#: [id number] DID#: [id number] CC: CHARLIE BUSBY DO;*EndCC*
--- NOTE | 2016-11-27 09:58 | CONS ---
Date/Time of Note Date/Time of Note DATE: 11/27/16 TIME: 09:56 Consult Date/Type/Reason Admit Date/Time November 15, 2016 at 06:52 Initial Consult Date 11/15/16 Type of Consultation: im Ordering Provider: YAYO EDGAR DO Subjective No other acute events noted. OBJECTIVE: HEENT: Head is normocephalic. Pupils are reactive to light. NECK: Supple. HEART: Regular rate. LUNGS: Show diminished breath sounds at base. ABDOMEN: Soft and nontender to palpation. No rebound or guarding. EXTREMITIES: Negative for clubbing, cyanosis, edema. DERMATOLOGIC: No rashes. MUSCULOSKELETAL: No joint effusions. NEUROLOGIC: The patient is lethargic, limited exam, but no obvious focal deficits. Objective Vital Signs Date Time Temp Pulse Resp B/P Pulse Ox O2 Delivery O2 Flow Rate FiO2 11/27/16 08:25 90 11/27/16 07:42 98.0 20 156/66 99 11/27/16 07:30 50 11/25/16 07:05 Ambu Bag Mechanical Ventilator Trach Collar Intake and Output 11/26/16 11/26/16 11/27/16 15:00 23:00 07:00 Intake Total 900 ml Balance 900 ml Results/Medications Result Diagram: 11/26/16 0615 11/26/16 0615 Results 24 hrs Laboratory Tests Test 11/26/16 12:53 11/26/16 17:35 11/27/16 00:22 11/27/16 06:11 Bedside Glucose 112 102 115 108 Medications Current Medications Heparin Sodium (Porcine) 5000 unit 5,000 unit Q12 SC Last administered on 08:46; Admin Dose 5,000 UNIT; Start 11/15/16 at 21:00 Linezolid (Zyvox 600mg/D5W (Pmx)) 300 ml @ 300 mls/hr Q12 IVPB Last administered on 11/27/16 08:37; Admin Dose 300 MLS/HR; Start 11/15/16 at 14:00 Miscellaneous Information 1 ea NOTE XX ; Start 11/16/16 at 01:30 Glucose (Glutose) 15 gm Q15M PRN PO DECREASED GLUCOSE; Start 11/16/16 at 01:30 Glucose (Glutose) 22.5 gm Q15M PRN PO DECREASED GLUCOSE; Start 11/16/16 at 01: 30 Dextrose (D50w Syringe) 25 ml Q15M PRN IV DECREASED GLUCOSE; Start 11/16/16 at 01:30 Dextrose (D50w Syringe) 50 ml Q15M PRN IV DECREASED GLUCOSE; Start 11/16/16 at 01:30 Glucagon (Glucagen) 1 mg Q15M PRN IM DECREASED GLUCOSE; Start 11/16/16 at 01:30 Glucose (Glutose) 15 gm Q15M PRN BUCCAL DECREASED GLUCOSE; Start 11/16/16 at 01 :30 Ondansetron HCl (Zofran Inj) 4 mg Q4H PRN IV NAUSEA AND/OR VOMITING; Start 05/26 at 08:30 Insulin Aspart (Novolog Insulin Pen) NOVOLOG *MILD* ALGORI... Q6 SC Last administered on 11/23/16 12:01; Admin Dose 1 UNIT; Start 11/17/16 at 12:00 Acetaminophen (Tylenol Liquid) 650 mg Q4H PRN GTB PAIN AND OR ELEVATED TEMP Last administered on 11/25/16 09:09; Admin Dose 650 MG; Start 11/21/16 at 09:00 Sodium Phosphate (Neutra-Phos) 250 mg TID GTB Last administered on 11/27/16 08 :37; Admin Dose 250 MG; Start 11/24/16 at 10:00 Lansoprazole (Prevacid) 30 mg BID@18 GTB Last administered on 11/27/16 06: 12; Admin Dose 30 MG; Start 11/27/16 at 06:00 Assessment/Plan Chief Complaint/Hosp Course 1. Sepsis secondary to pneumonia, possible aspiration, possible healthcare- associated, urinary tract infection. The patient's chest x-ray was reviewed. Repeat cultures have been reviewed. The patient's white count has been trending down. Continue de-escalation of antibiotics per Infectious Disease. 2. Diarrhea. Underlying etiology is unclear, possibly related to recent antibiotic course versus gastroenteritis. The patient's stool for C. diff is negative. The patient's empiric Flagyl was discontinued. Continue to monitor. Continue probiotics. 3. Lactic acidosis. Etiology is likely secondary to underlying sepsis; however , we will continue to monitor closely. We will consider CT scan of abdomen and pelvis. The patient has a benign abdominal exam, no clinical evidence of acute abdomen. We will monitor closely. 4. Acute encephalopathy. Etiology is toxic metabolic. Continue to monitor. 5. Ventilator dependent respiratory failure. The patient had a rapid response this morning. Currently on 100% FIO2. Repeat chest x-ray shows pulmonary infiltrate. The patient's ABGs and vent settings have been reviewed. Follow up with Pulmonary 6. Dysphagia status post PEG. Continue tube feeding. 7. Acute kidney injury on top of chronic kidney disease, etiology secondary to acute tubular necrosis. The patient has been dialysis dependent. We will continue to monitor. 8. Atrial fibrillation, currently rate controlled. Continue medical management. 9. Mineral bone disorder. Continue to monitor calcium and phosphorus levels. 10. History of congestive heart failure. Continue medical management. 11. History of breast cancer status post mastectomy. 12. Diabetes. Continue current insulin regimen. bs ok for porolonged time. hold ssi 13. Gastrointestinal and deep venous thrombosis prophylaxis. Continue proton pump inhibitor and heparin. Problems: TAMMIE HDZ MD November 27, 2016 09:58
--- NOTE | 2016-11-27 11:46 | CONS ---
Date/Time of Note Date/Time of Note DATE: 11/27/16 TIME: 11:41 Consult Date/Type/Reason Admit Date/Time November 15, 2016 at 06:52 Initial Consult Date 11/15/16 Type of Consultation: Infectious Disease Reason for Consultation VRE UTI Ordering Provider: YAYO EDGAR DO Subjective unable, tracheostomy in place Objective Vital Signs Date Time Temp Pulse Resp B/P Pulse Ox O2 Delivery O2 Flow Rate FiO2 11/27/16 11:05 90 31 96 50 11/27/16 07:42 98.0 156/66 11/25/16 07:05 Ambu Bag Mechanical Ventilator Trach Collar Intake and Output 11/26/16 11/26/16 11/27/16 15:00 23:00 07:00 Intake Total 900 ml Balance 900 ml Exam Constitutional: frail, non-verbal, other (chronically debilitated) Head: normocephalic Eyes: nl sclera Neck: tracheostomy in place Respiratory: diminished bases Cardiovascular: regular rate and rhythm Gastrointestinal: soft, nontender, nondistended, audible bowel sounds,GT in place with TF infusing, rectal tube with liquid stool Genitourinary - HD, dialysis catheter right upper chest Extremities: moves all 4 slowly on command Skin: Warm and dry Results/Medications Result Diagram: 11/26/1615 11/26/1615 Results 24 hrs Laboratory Tests Test 11/26/16 12:53 11/26/16 17:35 11/27/16 00:22 11/27/16 06:11 Bedside Glucose 112 102 115 108 Medications Current Medications Heparin Sodium (Porcine) 5000 unit 5,000 unit Q12 SC Last administered on 08:46; Admin Dose 5,000 UNIT; Start 11/15/16 at 21:00 Linezolid (Zyvox 600mg/D5W (Pmx)) 300 ml @ 300 mls/hr Q12 IVPB Last administered on 11/27/16 08:37; Admin Dose 300 MLS/HR; Start 11/15/16 at 14:00 Miscellaneous Information 1 ea NOTE XX ; Start 11/16/16 at 01:30 Glucose (Glutose) 15 gm Q15M PRN PO DECREASED GLUCOSE; Start 11/16/16 at 01:30 Glucose (Glutose) 22.5 gm Q15M PRN PO DECREASED GLUCOSE; Start 11/16/16 at 01: 30 Dextrose (D50w Syringe) 25 ml Q15M PRN IV DECREASED GLUCOSE; Start 11/16/16 at 01:30 Dextrose (D50w Syringe) 50 ml Q15M PRN IV DECREASED GLUCOSE; Start 11/16/16 at 01:30 Glucagon (Glucagen) 1 mg Q15M PRN IM DECREASED GLUCOSE; Start 11/16/16 at 01:30 Glucose (Glutose) 15 gm Q15M PRN BUCCAL DECREASED GLUCOSE; Start 11/16/16 at 01 :30 Ondansetron HCl (Zofran Inj) 4 mg Q4H PRN IV NAUSEA AND/OR VOMITING; Start 05/26 at 08:30 Insulin Aspart (Novolog Insulin Pen) NOVOLOG *MILD* ALGORI... Q6 SC Last administered on 11/23/16 12:01; Admin Dose 1 UNIT; Start 11/17/16 at 12:00 Acetaminophen (Tylenol Liquid) 650 mg Q4H PRN GTB PAIN AND OR ELEVATED TEMP Last administered on 11/25/16 09:09; Admin Dose 650 MG; Start 11/21/16 at 09:00 Sodium Phosphate (Neutra-Phos) 250 mg TID GTB Last administered on 11/27/16 08 :37; Admin Dose 250 MG; Start 11/24/16 at 10:00 Lansoprazole (Prevacid) 30 mg BID@,18 GTB Last administered on 11/27/16 06: 12; Admin Dose 30 MG; Start 11/27/16 at 06:00 Assessment/Plan Chief Complaint/Hosp Course Assessment/Plan Chief Complaint/Hosp Course - Septic shock due to UTI +/- aspiration- completing course of abx - Lactic acidosis - improving - 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 hominis and Enterococcus - Hx tooth abscess treated with amoxicillin - Diarrhea; c diff negative (hx C diff 10/05/2016 & at [facility] earlier this year) - Hx candiduria (C. 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 08/2016) - ACD - Hx DIC and thrombocytopenia - Acute toxic metabolic encephalopathy - improving - Dysphagia s/p PEG - Hx R breast CA s/p bilateral mastectomies - Hx DVT per records from [facility] - Critical care polyneuropathy confirmed by EMG at [facility] ~08/2016 - Major depression - Allergy to vancomycin and erythromycin with detail unknown - Acute respiratory distress 11/25/2016 likely d/t anxiety Recommendations: - finish course of Linezolid (11/15/2016-) - trend WBC - probiotics Care and management discussed with ANAYELI Lema and DR. Rouse Problems: HAIR VILLELA November 27, 2016 11:46
--- NOTE | 2016-11-27 12:21 | CONS ---
Date/Time of Note Date/Time of Note DATE: 11/27/16 TIME: 12:19 Assessment/Plan Assessment/Plan Additional Assessment/Plan Ventilator setting; AC of 10, tidal volume 500, PEEP of 5, 50% FiO2. Assessment recommendations; 1. Patient admitted for UTI and sepsis currently on appropriate antibiotic regimen. 2. Chronic respiratory failure., Ventilator dependent. 3. End-stage renal disease, on hemodialysis. 4. History of cardiac arrhythmia, status post pacemaker implantation. Continue current treatment. Wean down FiO2 to keep O2 saturation around 94%. Consultation Date/Type/Reason Admit Date/Time November 15, 2016 at 06:52 Initial Consult Date 11/15/16 Type of Consultation: Pulmonary Referring Provider: YAYO EDGAR DO 24 HR Interval Summary Free Text/Dictation Patient condition stable. Remains awake alert. Follows simple commands. Has remained hemodynamically stable. General exam; elderly lady, awake alert currently in no distress. Exam/Review of Systems Vital Signs Vitals Vital Signs Date Time Temp Pulse Resp B/P Pulse Ox O2 Delivery O2 Flow Rate FiO2 11/27/16 11:05 90 31 96 50 11/27/16 07:42 98.0 156/66 11/25/16 07:05 Ambu Bag Mechanical Ventilator Trach Collar Intake and Output 11/26/16 11/26/16 11/27/16 15:00 23:00 07:00 Intake Total 900 ml Balance 900 ml Exam H EENT exam; supple neck, no JVD. No lymphadenopathy. Midline trachea. No thyromegaly. Tracheostomy in place. Patient has bilateral intraocular lens implants. Dentition is fair. Chest examination; diminished but clear vessel. S1-S2 audible, no murmurs. Regular rhythm. Abdomen examination; soft, no organomegaly. Bowel sounds audible. G-tube in place. Extremity examination; no peripheral edema. CLEANING SUPERVISOR examination; patient is awake and alert follows simple commands and moves all 4 extremities. But has severe generalized muscular weakness. Results Result Diagram: 11/26/1615 11/26/1615 Results 24 hrs Laboratory Tests Test 11/26/16 12:53 11/26/16 17:35 11/27/16 00:22 11/27/16 06:11 Bedside Glucose 112 102 115 108 Medications Medications Current Medications Heparin Sodium (Porcine) 5000 unit 5,000 unit Q12 SC Last administered on 08:46; Admin Dose 5,000 UNIT; Start 11/15/16 at 21:00 Linezolid (Zyvox 600mg/D5W (Pmx)) 300 ml @ 300 mls/hr Q12 IVPB Last administered on 11/27/16 08:37; Admin Dose 300 MLS/HR; Start 11/15/16 at 14:00 Miscellaneous Information 1 ea NOTE XX ; Start 11/16/16 at 01:30 Glucose (Glutose) 15 gm Q15M PRN PO DECREASED GLUCOSE; Start 11/16/16 at 01:30 Glucose (Glutose) 22.5 gm Q15M PRN PO DECREASED GLUCOSE; Start 11/16/16 at 01: 30 Dextrose (D50w Syringe) 25 ml Q15M PRN IV DECREASED GLUCOSE; Start 11/16/16 at 01:30 Dextrose (D50w Syringe) 50 ml Q15M PRN IV DECREASED GLUCOSE; Start 11/16/16 at 01:30 Glucagon (Glucagen) 1 mg Q15M PRN IM DECREASED GLUCOSE; Start 11/16/16 at 01:30 Glucose (Glutose) 15 gm Q15M PRN BUCCAL DECREASED GLUCOSE; Start 11/16/16 at 01 :30 Ondansetron HCl (Zofran Inj) 4 mg Q4H PRN IV NAUSEA AND/OR VOMITING; Start 05/26 at 08:30 Insulin Aspart (Novolog Insulin Pen) NOVOLOG *MILD* ALGORI... Q6 SC Last administered on 11/23/16 12:01; Admin Dose 1 UNIT; Start 11/17/16 at 12:00 Acetaminophen (Tylenol Liquid) 650 mg Q4H PRN GTB PAIN AND OR ELEVATED TEMP Last administered on 11/25/16 09:09; Admin Dose 650 MG; Start 11/21/16 at 09:00 Sodium Phosphate (Neutra-Phos) 250 mg TID GTB Last administered on 11/27/16 08 :37; Admin Dose 250 MG; Start 11/24/16 at 10:00 Lansoprazole (Prevacid) 30 mg BID@,18 GTB Last administered on 11/27/16 06: 12; Admin Dose 30 MG; Start 11/27/16 at 06:00 JUSTIN LINARES November 27, 2016 12:21
[2016-11-28] VITALS (32 sets, daily range): BP systolic 103–157; BP diastolic 52–79; PULSE 92–103; RESP 18–33
[2016-11-28] MEDS: LANSOPRAZOLE 30 MG CAP GTB SCH ×2 (05:36→17:29)
[2016-11-28] MEDS: INSULIN ASPART [NOVOLOG] 3 ML PEN SC SCH ×5 (05:43→23:49)
[2016-11-28 06:23] LABS: ADD SCAN DIFF NO
[2016-11-28 06:28] LABS: BASOPHILS % 0.2 % (0.0-2.0); EOSINOPHILS # 0.4 10^3/ul (0.0-0.5); HEMATOCRIT 25.5 % (37.0-47.0); LYMPHOCYTES # 1.8 10^3/ul (0.8-2.9); LYMPHOCYTES % 16.4 % (15.0-51.0); MEAN CORPUSCULAR HEMOGLOBIN 28.5 pg (29.0-33.0); MEAN CORPUSCULAR HGB CONC 31.4 g/dl (32.0-37.0); MEAN CORPUSCULAR VOLUME 90.7 fl (82.0-101.0); MEAN PLATELET VOLUME 10.6 fl (7.4-10.4); MONOCYTE # 0.7 10^3/ul (0.3-0.9); MONOCYTES % 6.1 % (0.0-11.0); NEUTROPHIL # 7.9 10^3/ul (1.6-7.5); NEUTROPHILS % 72.7 % (39.0-77.0); PLATELET COUNT 230 10^3/UL (140-415); RED BLOOD COUNT 2.81 10^6/ul (4.20-5.40); RED CELL DISTRIBUTION WIDTH 17.5 % (11.5-14.5); WHITE BLOOD COUNT 10.8 10^3/ul (4.8-10.8)
[2016-11-28 07:09] LABS: POTASSIUM 4.2 mmol/L (3.5-5.1)
[2016-11-28 07:11] LABS: CREATININE 2.64 mg/dl (0.44-1.00)
[2016-11-28 07:12] LABS: CALCIUM 9.2 mg/dl (8.4-10.2); PHOSPHORUS 5.1 mg/dl (2.5-4.9)
[2016-11-28 07:13] LABS: MAGNESIUM 1.8 mg/dl (1.7-2.5)
[2016-11-28] MEDS: LINEZOLID 600 MG/D5W (PMX) 300 ML IVPB SCH (08:10)
[2016-11-28] MEDS: HEPARIN 5,000 UNIT/0.5 ML VIAL SC SCH ×2 (08:14→21:13)
--- NOTE | 2016-11-28 08:28 | PN ---
DATE: 11/28/2016 SUBJECTIVE: The patient is stable. No events overnight. No fevers, chills, nausea or vomiting. T he patient's diarrhea is improving. No other events noted. OBJECTIVE: VITAL SIGNS: Blood pressure 117/68, respirations 18, pulse 94, temperature 98.0. HEENT: Head is normocephalic. NECK: Supple. HEART: Regular rate. LUNGS: Showed diminished breath sounds at the base. ABDOMEN: Soft, nontender to palpation. No rebound or guarding. EXTREMITIES: Negative for clubbing or cyanosis. No edema. DERMATOLOGIC: No rashes. MUSCULOSKELETAL: Have no joint effusion. NEUROLOGIC: No change in exam. MEDICATIONS: The patient's medications have been reviewed. LABORATORY DATA: Shows sodium 137, potassium 4.2, chloride 98, BUN 72, creatinine 2.64. White coun t 10.8, hemoglobin 8.0, hematocrit 25.5, platelet count 230. The patient's cultures have been revie wed. ASSESSMENT AND PLAN: 1. Sepsis. Etiology is secondary to pneumonia, aspiration, possible healthcare-associated, urinary tract infection. The patient is clinically improving. White count is improved. The patient's ant ibiotics are being deescalated per infectious disease. Continue to monitor. 2. Diarrhea. Etiology is unclear, possibly related to antibiotic course. C. diff stool was negati ve. Patient is status post Flagyl, currently on probiotics. Continue to monitor. 3. Lactic acidosis secondary to sepsis. Resolving. Continue to observe. Continue to monitor. 4. Acute encephalopathy. Etiology is toxic metabolic. Mental status appears to be improving. 5. Ventilatory-dependent respiratory failure. Vent settings have been reviewed. ABG has been revi ewed. Continue to monitor. Follow up with pulmonary. 6. Dysphagia. Status post PEG. Continue tube feedings. 7. Acute kidney injury on top of chronic kidney disease. Etiology is secondary to acute tubular ne crosis. The patient is currently dialysis dependent. No evidence of recovery. Continue. Plan for dialysis today. 8. Atrial fibrillation. Rate controlled. Continue the current medical management. 9. Anemia of chronic disease. Continue to monitor hemoglobin and hematocrit levels. Continue Epog en. 10. Mineral bone disorder. Continue to monitor calcium and phos levels. 11. Congestive heart failure. Continue medical management. 12. History of breast cancer. Status post mastectomy 13. Diabetes. Continue the current insulin regimen. 14. Gastrointestinal and deep venous thrombosis prophylaxis. Continue proton pump inhibitor and he asia. DISPOSITION: The patient is pending outpatient subacute and hemodialysis placement. Dictated By: CHARLIE ESPINOSA/SEEMA Conf#: [id number] DID#: [id number]
--- NOTE | 2016-11-28 11:29 | CONS ---
Date/Time of Note Date/Time of Note DATE: 11/28/16 TIME: 11:28 Consult Date/Type/Reason Admit Date/Time November 15, 2016 at 06:52 Initial Consult Date 11/15/16 Type of Consultation: Pulmonary Ordering Provider: YAYO EDGAR DO Subjective Patient awake alert and oriented this morning comfortable at rest. Stable on 50 % FiO2 Objective Vital Signs Date Time Temp Pulse Resp B/P Pulse Ox O2 Delivery O2 Flow Rate FiO2 11/28/16 11:13 97.7 94 26 157/79 97 11/28/16 09:30 50 11/25/16 07:05 Ambu Bag Mechanical Ventilator Trach Collar Intake and Output 11/27/16 11/27/16 11/28/16 15:00 23:00 07:00 Intake Total 920 ml 850 ml Output Total 600 ml 900 ml Balance 320 ml -50 ml Exam PHYSICAL EXAMINATION GENERAL: Elderly lady on mechanical ventilation comfortable at rest no acute distress VITAL SIGNS: see below. HEENT: Pupils equal, round, and reactive to light. Tracheostomy site clean and intact. CARDIAC: S1, S2, 1/6 systolic ejection murmur CHEST: Diminished air entry bilaterally. ABDOMEN: Mildly distended. Bowel sounds present no guarding or rebound EXTREMITIES: No cyanosis, clubbing edema +1 NEUROLOGIC: Generalized weakness Results/Medications Result Diagram: 11/28/16 0612 11/28/16 0612 Results 24 hrs Laboratory Tests Test 11/27/16 17:34 11/28/16 00:24 11/28/16 05:35 11/28/16 06:12 Bedside Glucose 101 123 113 White Blood Count 10.8 Red Blood Count 2.81 L Hemoglobin 8.0 L Hematocrit 25.5 L Mean Corpuscular Volume 90.7 Mean Corpuscular Hemoglobin 28.5 L Mean Corpuscular Hemoglobin Concent 31.4 L Red Cell Distribution Width 17.5 H Platelet Count 230 Mean Platelet Volume 10.6 H Neutrophils % 72.7 Lymphocytes % 16.4 Monocytes % 6.1 Eosinophils % 4.0 Basophils % 0.2 Nucleated Red Blood Cells % 0.0 Neutrophils # 7.9 H Lymphocytes # 1.8 Monocytes # 0.7 Eosinophils # 0.4 Basophils # 0.0 Nucleated Red Blood Cells # 0.0 Sodium Level 137 Potassium Level 4.2 Chloride Level 98 Carbon Dioxide Level 21 Anion Gap 22 #H Blood Urea Nitrogen 72 H Creatinine 2.64 H Glucose Level 105 Calcium Level 9.2 Phosphorus Level 5.1 H Magnesium Level 1.8 Medications Current Medications Heparin Sodium (Porcine) 5000 unit 5,000 unit Q12 SC Last administered on 08:14; Admin Dose 5,000 UNIT; Start 11/15/16 at 21:00 Linezolid (Zyvox 600mg/D5W (Pmx)) 300 ml @ 300 mls/hr Q12 IVPB Last administered on 11/28/16 08:10; Admin Dose 300 MLS/HR; Start 11/15/16 at 14:00 Miscellaneous Information 1 ea NOTE XX ; Start 11/16/16 at 01:30 Glucose (Glutose) 15 gm Q15M PRN PO DECREASED GLUCOSE; Start 11/16/16 at 01:30 Glucose (Glutose) 22.5 gm Q15M PRN PO DECREASED GLUCOSE; Start 11/16/16 at 01: 30 Dextrose (D50w Syringe) 25 ml Q15M PRN IV DECREASED GLUCOSE; Start 11/16/16 at 01:30 Dextrose (D50w Syringe) 50 ml Q15M PRN IV DECREASED GLUCOSE; Start 11/16/16 at 01:30 Glucagon (Glucagen) 1 mg Q15M PRN IM DECREASED GLUCOSE; Start 11/16/16 at 01:30 Glucose (Glutose) 15 gm Q15M PRN BUCCAL DECREASED GLUCOSE; Start 11/16/16 at 01 :30 Ondansetron HCl (Zofran Inj) 4 mg Q4H PRN IV NAUSEA AND/OR VOMITING; Start 05/26 at 08:30 Insulin Aspart (Novolog Insulin Pen) NOVOLOG *MILD* ALGORI... Q6 SC Last administered on 11/23/16 12:01; Admin Dose 1 UNIT; Start 11/17/16 at 12:00 Acetaminophen (Tylenol Liquid) 650 mg Q4H PRN GTB PAIN AND OR ELEVATED TEMP Last administered on 11/25/16 09:09; Admin Dose 650 MG; Start 11/21/16 at 09:00 Lansoprazole (Prevacid) 30 mg BID@06,18 GTB Last administered on 11/28/16 05: 36; Admin Dose 30 MG; Start 11/27/16 at 06:00 Assessment/Plan Chief Complaint/Hosp Course Assessment 1. Patient admitted for sepsis from UTI possibly line sepsis, improved. 2. Chronic renal failure, on hemodialysis. 3. Chronic respiratory failure, now requiring invasive mechanical ventilation due to sepsis. 4. History of dementia 5. History of cardiac arrhythmia. Status post pacemaker placement. 6. History of anemia Plan 1. Continue mechanical ventilation, decrease FiO2 as tolerated currently 50% 2. Status post transfusion stable 3. Continue tube feeding 4. Chest x-ray shows CHF and compressive atelectasis 5. Continue DVT and GI prophylaxis Discharge planning okay from pulmonary standpoint Problems: [facility]STR[facility] November 28, 2016 11:29
--- NOTE | 2016-11-28 16:32 | CONS ---
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 hominis and Enterococcus - Hx tooth abscess treated with amoxicillin - Diarrhea; c diff negative (hx C diff 10/05/2016 & at [facility] earlier this year) - Hx candiduria (C. 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 - VDRF with tracheostomy - Hx ARDS & COPD - PAF with RVR, converted back to SR - PPM - Acute on chronic diastolic HF - PREMA on CKD requiring HD (previously on CRRT at [facility] 08/2016) - ACD - Hx DIC and thrombocytopenia - Acute toxic metabolic encephalopathy - improving - Dysphagia s/p PEG - Hx R breast CA s/p bilateral mastectomies - Hx DVT per records from [facility] - Critical care polyneuropathy confirmed by EMG at [facility] ~08/2016 - Major depression - Allergy to vancomycin and erythromycin with detail unknown - Acute respiratory distress 11/25/2016 likely d/t anxiety Recommendations: - monitor off abx - probiotics Problems: Consultation Date/Type/Reason Admit Date/Time November 15, 2016 at 06:52 Initial Consult Date 11/15/16 Type of Consultation: id Referring Provider: YAYO EDGAR DO Exam/Review of Systems Vital Signs Vitals Vital Signs Date Time Temp Pulse Resp B/P Pulse Ox O2 Delivery O2 Flow Rate FiO2 11/28/16 15:45 98.2 103 30 107/54 96 11/28/16 15:44 50 11/25/16 07:05 Ambu Bag Mechanical Ventilator Trach Collar Intake and Output 11/27/16 11/27/16 11/28/16 15:00 23:00 07:00 Intake Total 920 ml 850 ml Output Total 600 ml 900 ml Balance 320 ml -50 ml Results Result Diagram: 11/28/16 0612 11/28/16 0612 Results 24 hrs Laboratory Tests Test 11/27/16 17:34 11/28/16 00:24 11/28/16 05:35 11/28/16 06:12 Bedside Glucose 101 123 113 White Blood Count 10.8 Red Blood Count 2.81 L Hemoglobin 8.0 L Hematocrit 25.5 L Mean Corpuscular Volume 90.7 Mean Corpuscular Hemoglobin 28.5 L Mean Corpuscular Hemoglobin Concent 31.4 L Red Cell Distribution Width 17.5 H Platelet Count 230 Mean Platelet Volume 10.6 H Neutrophils % 72.7 Lymphocytes % 16.4 Monocytes % 6.1 Eosinophils % 4.0 Basophils % 0.2 Nucleated Red Blood Cells % 0.0 Neutrophils # 7.9 H Lymphocytes # 1.8 Monocytes # 0.7 Eosinophils # 0.4 Basophils # 0.0 Nucleated Red Blood Cells # 0.0 Sodium Level 137 Potassium Level 4.2 Chloride Level 98 Carbon Dioxide Level 21 Anion Gap 22 #H Blood Urea Nitrogen 72 H Creatinine 2.64 H Glucose Level 105 Calcium Level 9.2 Phosphorus Level 5.1 H Magnesium Level 1.8 Test 11/28/16 11:56 Bedside Glucose 108 Medications Medications Current Medications Heparin Sodium (Porcine) 5000 unit 5,000 unit Q12 SC Last administered on 08:14; Admin Dose 5,000 UNIT; Start 11/15/16 at 21:00 Linezolid (Zyvox 600mg/D5W (Pmx)) 300 ml @ 300 mls/hr Q12 IVPB Last administered on 11/28/16 08:10; Admin Dose 300 MLS/HR; Start 11/15/16 at 14:00 Miscellaneous Information 1 ea NOTE XX ; Start 11/16/16 at 01:30 Glucose (Glutose) 15 gm Q15M PRN PO DECREASED GLUCOSE; Start 11/16/16 at 01:30 Glucose (Glutose) 22.5 gm Q15M PRN PO DECREASED GLUCOSE; Start 11/16/16 at 01: 30 Dextrose (D50w Syringe) 25 ml Q15M PRN IV DECREASED GLUCOSE; Start 11/16/16 at 01:30 Dextrose (D50w Syringe) 50 ml Q15M PRN IV DECREASED GLUCOSE; Start 11/16/16 at 01:30 Glucagon (Glucagen) 1 mg Q15M PRN IM DECREASED GLUCOSE; Start 11/16/16 at 01:30 Glucose (Glutose) 15 gm Q15M PRN BUCCAL DECREASED GLUCOSE; Start 11/16/16 at 01 :30 Ondansetron HCl (Zofran Inj) 4 mg Q4H PRN IV NAUSEA AND/OR VOMITING; Start 05/26 at 08:30 Insulin Aspart (Novolog Insulin Pen) NOVOLOG *MILD* ALGORI... Q6 SC Last administered on 11/23/16 12:01; Admin Dose 1 UNIT; Start 11/17/16 at 12:00 Acetaminophen (Tylenol Liquid) 650 mg Q4H PRN GTB PAIN AND OR ELEVATED TEMP Last administered on 11/25/16 09:09; Admin Dose 650 MG; Start 11/21/16 at 09:00 Lansoprazole (Prevacid) 30 mg BID@18 GTB Last administered on 11/28/16 05: 36; Admin Dose 30 MG; Start 11/27/16 at 06:00 RUBY ROY MD November 28, 2016 16:32
--- NOTE | 2016-11-28 21:01 | PN ---
DATE: 11/28/2016 CARDIOLOGY FOLLOWUP SUBJECTIVE: Discussed with the staff. The patient remains in sinus rhythm. Remains on a ____ trach on the vent. No reported chest pain or pressure. No more episodes of atrial fibrillation noted. MEDICATIONS: Reviewed. PHYSICAL EXAMINATION: VITAL SIGNS: Temperature 98.2, heart rate of 97, blood pressure 107/54, respiration 24. HEENT: Normocephalic, atraumatic. NECK: Status post tracheostomy. CARDIOVASCULAR: Regular rate and rhythm, systolic murmur. PULMONARY: With no wheezes anteriorly. GASTROINTESTINAL: Soft, status post PEG. EXTREMITIES: With trivial edema. NEUROLOGIC: Awake. PSYCHIATRIC: Appears to be anxious, otherwise stable. LABORATORY: Shows WBC of 10.8, hemoglobin 8, platelets of 230. Sodium 137, potassium 4.2, BUN of 72, creatinine 2.6, glucose 105. ASSESSMENT AND PLAN: 1. Hypoxemic hypercapnic respiratory failure, chronic, status post tracheostomy on the vent. 2. Paroxysmal atrial fibrillation, currently remains in sinus rhythm. 3. History of congestive heart failure/fluid overload, currently appears to euvolemic. 4. Renal failure on dialysis. 5. History of critical care neuropathy. 6. Diabetes. 7. Severe anemia, status post multiple transfusions. RECOMMENDATIONS: I will hold anticoagulation due to concern about the bleeding and severe anemia. DVT prophylaxis will be continued though with the heparin. The patient remains in sinus rhythm. Will continue to monitor. Respiratory care will be continued. Dictated By: KIAH RAINES/SEEMA Conf#: [id number] DID#: [id number] CC: CHARLIE BUSBY DO;*EndCC* FARA
[2016-11-29] VITALS (27 sets, daily range): BP systolic 86–155; BP diastolic 51–81; PULSE 88–98; RESP 17–29
[2016-11-29] MEDS: LANSOPRAZOLE 30 MG CAP GTB SCH ×2 (05:50→17:52)
[2016-11-29] MEDS: INSULIN ASPART [NOVOLOG] 3 ML PEN SC SCH ×4 (05:54→23:52)
--- NOTE | 2016-11-29 08:37 | PN ---
DATE: 11/29/2016 SUBJECTIVE: The patient had hemodialysis yesterday with approximately 3 L removed. Following dialy sis, the patient was noted to be hypertensive with systolic pressures in the 90s/low 100s. No other events noted. No hemoptysis, hematemesis, or hematochezia. OBJECTIVE: VITAL SIGNS: Blood pressure is 96/55, respirations 23, pulse 100, temperature 98.2. HEENT: Head is normocephalic. NECK: Supple. HEART: Regular rate. LUNGS: Show diminished breath sounds at the base. ABDOMEN: Soft, nontender to palpation, no rebound or guarding. EXTREMITIES: Negative for clubbing, cyanosis. No edema. DERMATOLOGIC: No rashes. MUSCULOSKELETAL: No joint effusions. NEUROLOGIC: No change in exam. MEDICATIONS: The patient's medications have been reviewed. LABORATORY DATA: From November 28 is reviewed. The patient had a white count of 10.8, hemoglobin 8.0. BNP was reviewed. Laboratory data from November 29 is pending. ASSESSMENT AND PLAN: 1. Sepsis secondary to pneumonia, aspiration, possible urinary tract infection. The patient is cli nically improving, currently the antibiotics have been deescalated. Will continue to monitor off an tibiotic therapy. 2. Diarrhea, resolved, etiology is unclear, possible gastroenteritis versus antibiotics. Continue to monitor. 3. Lactic acidosis secondary to sepsis, resolved. 4. Acute encephalopathy, etiology toxic metabolic. Mental status improving. The patient is status post CT scan, no evidence of acute cerebrovascular accident. 5. Ventilatory-dependent respiratory failure. Vent settings have been reviewed. ABG is reviewed. Continue to monitor. 6. Dysphagia status post percutaneous endoscopic gastrostomy. Continue tube feeding. 7. Acute kidney injury on top of chronic kidney disease. Etiology secondary to acute tubular necro sis. The patient is currently dialysis dependent, no evidence of recovery. Continue to monitor. 8. Atrial fibrillation, rate controlled. Continue medical management. 9. Anemia. Continue to monitor hemoglobin and hematocrit levels. Continue Epogen. 10. Mineral bone disorder. Continue to monitor calcium and phosphorus levels, Neutra-Phos was disc ontinued. 11. Congestive heart failure. Continue current treatment plan. 12. Diabetes. Continue current insulin regimen. 13. History of breast cancer. The patient is status post mastectomy. 14. Gastrointestinal and deep venous thrombosis prophylaxis. Continue PPI and heparin. 15. Disposition. The patient is pending outpatient subacute and hemodialysis placement. Dictated By: CHARLIE ESPINOSA/SEEMA Conf#: [id number] DID#: [id number]
[2016-11-29] MEDS: HEPARIN 5,000 UNIT/0.5 ML VIAL SC SCH ×2 (08:43→21:32)
[2016-11-29] MEDS: EPOETIN 4000 UNITS/1 ML INJ (ESRD) SC SCH (08:46)
[2016-11-29 08:49] LABS: ADD SCAN DIFF NO
[2016-11-29 08:56] LABS: ABNORMAL IP MESSAGE 1; BASOPHILS % 0.1 % (0.0-2.0); EOSINOPHILS # 0.3 10^3/ul (0.0-0.5); EOSINOPHILS % 3.4 % (0.0-7.0); HEMATOCRIT 18.3 % (37.0-47.0); LYMPHOCYTES # 1.9 10^3/ul (0.8-2.9); LYMPHOCYTES % 20.9 % (15.0-51.0); MEAN CORPUSCULAR HGB CONC 30.6 g/dl (32.0-37.0); MEAN CORPUSCULAR VOLUME 91.5 fl (82.0-101.0); MEAN PLATELET VOLUME 11.4 fl (7.4-10.4); MONOCYTE # 0.7 10^3/ul (0.3-0.9); MONOCYTES % 7.5 % (0.0-11.0); NEUTROPHIL # 6.2 10^3/ul (1.6-7.5); NEUTROPHILS % 67.8 % (39.0-77.0); PLATELET COUNT 270 10^3/UL (140-415); RED CELL DISTRIBUTION WIDTH 17.5 % (11.5-14.5); WHITE BLOOD COUNT 9.2 10^3/ul (4.8-10.8)
[2016-11-29 09:21] LABS: HEMOGLOBIN 5.6 g/dl (12.0-16.0)
--- NOTE | 2016-11-29 11:20 | CONS ---
Date/Time of Note Date/Time of Note DATE: 11/29/16 TIME: 11:17 Consult Date/Type/Reason Admit Date/Time November 15, 2016 at 06:52 Initial Consult Date 11/15/16 Type of Consultation: Pulmonary ICU Ordering Provider: YAYO EDGAR DO Subjective Patient comfortable this morning significant anemia noted Objective Vital Signs Date Time Temp Pulse Resp B/P Pulse Ox O2 Delivery O2 Flow Rate FiO2 11/29/16 09:26 97 23 96 50 11/29/16 07:24 98.3 101/53 11/25/16 07:05 Ambu Bag Mechanical Ventilator Trach Collar Intake and Output 11/28/16 11/28/16 11/29/16 15:00 23:00 07:00 Intake Total 300 ml 1085 ml 545 ml Output Total 3500 ml Balance 300 ml -2415 ml 545 ml Exam PHYSICAL EXAMINATION GENERAL: Elderly lady on mechanical ventilation comfortable at rest no acute distress VITAL SIGNS: see below. HEENT: Pupils equal, round, and reactive to light. Tracheostomy site clean and intact. CARDIAC: S1, S2, 1/6 systolic ejection murmur CHEST: Diminished air entry bilaterally. ABDOMEN: Mildly distended. Bowel sounds present no guarding or rebound EXTREMITIES: No cyanosis, clubbing edema +1 NEUROLOGIC: Generalized weakness Results/Medications Result Diagram: 11/29/16 0647 11/28/16 0612 Results 24 hrs Laboratory Tests Test 11/28/16 11:56 11/28/16 17:17 11/28/16 23:48 11/29/16 05:52 Bedside Glucose 108 107 109 100 Test 11/29/16 06:47 White Blood Count 9.2 Red Blood Count 2.00 #L Hemoglobin 5.6 #*L Hematocrit 18.3 #L Mean Corpuscular Volume 91.5 Mean Corpuscular Hemoglobin 28.0 L Mean Corpuscular Hemoglobin Concent 30.6 L Red Cell Distribution Width 17.5 H Platelet Count 270 Mean Platelet Volume 11.4 H Neutrophils % 67.8 Lymphocytes % 20.9 Monocytes % 7.5 Eosinophils % 3.4 Basophils % 0.1 Nucleated Red Blood Cells % 0.0 Neutrophils # 6.2 Lymphocytes # 1.9 Monocytes # 0.7 Eosinophils # 0.3 Basophils # 0.0 Nucleated Red Blood Cells # 0.0 Medications Current Medications Heparin Sodium (Porcine) (Heparin (5000 Units/0.5 ml)) 5,000 unit Q12 SC Last administered on 11/29/16 08:43; Admin Dose 5,000 UNIT; Start 11/15/16 at 21:00 Miscellaneous Information 1 ea NOTE XX ; Start 11/16/16 at 01:30 Glucose (Glutose) 15 gm Q15M PRN PO DECREASED GLUCOSE; Start 11/16/16 at 01:30 Glucose (Glutose) 22.5 gm Q15M PRN PO DECREASED GLUCOSE; Start 11/16/16 at 01: 30 Dextrose (D50w Syringe) 25 ml Q15M PRN IV DECREASED GLUCOSE; Start 11/16/16 at 01:30 Dextrose (D50w Syringe) 50 ml Q15M PRN IV DECREASED GLUCOSE; Start 11/16/16 at 01:30 Glucagon (Glucagen) 1 mg Q15M PRN IM DECREASED GLUCOSE; Start 11/16/16 at 01:30 Glucose (Glutose) 15 gm Q15M PRN BUCCAL DECREASED GLUCOSE; Start 11/16/16 at 01 :30 Ondansetron HCl (Zofran Inj) 4 mg Q4H PRN IV NAUSEA AND/OR VOMITING; Start 05/26 at 08:30 Insulin Aspart (Novolog Insulin Pen) NOVOLOG *MILD* ALGORI... Q6 SC Last administered on 11/23/16 12:01; Admin Dose 1 UNIT; Start 11/17/16 at 12:00 Acetaminophen (Tylenol Liquid) 650 mg Q4H PRN GTB PAIN AND OR ELEVATED TEMP Last administered on 11/25/16 09:09; Admin Dose 650 MG; Start 11/21/16 at 09:00 Lansoprazole (Prevacid) 30 mg BID@,18 GTB Last administered on 11/29/16 05: 50; Admin Dose 30 MG; Start 11/27/16 at 06:00 Assessment/Plan Chief Complaint/Hosp Course Assessment 1. Patient admitted for sepsis from UTI possibly line sepsis, improved. 2. Chronic renal failure, on hemodialysis. 3. Chronic respiratory failure, now requiring invasive mechanical ventilation due to sepsis. 4. History of dementia 5. History of cardiac arrhythmia. Status post pacemaker placement. 6. History of anemia significantly decreased hemoglobin today questionable aberrant lab draws versus acute GI bleed Plan 1. Continue mechanical ventilation, decrease FiO2 as tolerated currently 50% 2. Status post transfusion stable would repeat stat H&H may need GI consultation if hemoglobin is truly 5.6 with transfusion of packed red blood cells 3. Continue tube feeding 4. Chest x-ray shows CHF and compressive atelectasis 5. Continue DVT and GI prophylaxis Disposition Continue telemetry care Problems: [facility], 2016 11:20
[2016-11-29 12:11] LABS: HEMATOCRIT 24.5 % (37.0-47.0); HEMOGLOBIN 7.8 g/dl (12.0-16.0)
--- NOTE | 2016-11-29 15:16 | CONS ---
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 hominis and Enterococcus - Hx tooth abscess treated with amoxicillin - Diarrhea; c diff negative (hx C diff 10/05/2016 & at [facility] earlier this year) - Hx candiduria (C. 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 - VDRF with tracheostomy - Hx ARDS & COPD - PAF with RVR, converted back to SR - PPM - Acute on chronic diastolic HF - PREMA on CKD requiring HD (previously on CRRT at [facility] 08/2016) - ACD - Hx DIC and thrombocytopenia - Acute toxic metabolic encephalopathy - improving - Dysphagia s/p PEG - Hx R breast CA s/p bilateral mastectomies - Hx DVT per records from [facility] - Critical care polyneuropathy confirmed by EMG at [facility] ~08/2016 - Major depression - Allergy to vancomycin and erythromycin with detail unknown - Acute respiratory distress 11/25/2016 likely d/t anxiety - improved Recommendations: - monitor off abx - probiotics - awaiting SNF placement and outpt HD arrangement Management d/w ANAYELI Watson and Dr. Rouse Problems: Consultation Date/Type/Reason Admit Date/Time November 15, 2016 at 06:52 Initial Consult Date 11/15/16 Type of Consultation: Infectious Disease Referring Provider: YAYO EDGAR DO 24 HR Interval Summary Free Text/Dictation Hgb was low this AM but repeat labs showed improvement; no other new issues per d/w nursing staff. Pt sleeping. Unable to perform ROS. Exam/Review of Systems Vital Signs Vitals Vital Signs Date Time Temp Pulse Resp B/P Pulse Ox O2 Delivery O2 Flow Rate FiO2 11/29/16 12:54 88 11/29/16 11:40 97.7 18 155/81 95 11/29/16 11:16 50 11/25/16 07:05 Ambu Bag Mechanical Ventilator Trach Collar Intake and Output 11/28/16 11/28/16 11/29/16 15:00 23:00 07:00 Intake Total 300 ml 1085 ml 545 ml Output Total 3500 ml Balance 300 ml -2415 ml 545 ml Exam Constitutional: Sleeping but arousable; appears frail Psych: other (calm) Head: atraumatic, normocephalic Eyes: nl sclera ENMT: other (declines to open mouth for examination) Neck: other (tracheostomy intact) Respiratory: diminished breath sounds Cardiovascular: regular rate and rhythm Gastrointestinal: distended (mildly), other (G tube intact with tube feeds), soft Genitourinary - Female: other (incontinent of urine; wearing diaper) Musculoskeletal: muscle weakness Extremities: No cyanosis, No edema 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: sleeping Skin: nl turgor, other (Right chest wall permacath and RUE PICC intact with no e/o infection) Results Result Diagram: 11/29/16 1150 11/28/16 0612 Results 24 hrs Laboratory Tests Test 11/28/16 17:17 11/28/16 23:48 11/29/16 05:52 11/29/16 06:47 Bedside Glucose 107 109 100 White Blood Count 9.2 Red Blood Count 2.00 #L Hemoglobin 5.6 #*L Hematocrit 18.3 #L Mean Corpuscular Volume 91.5 Mean Corpuscular Hemoglobin 28.0 L Mean Corpuscular Hemoglobin Concent 30.6 L Red Cell Distribution Width 17.5 H Platelet Count 270 Mean Platelet Volume 11.4 H Neutrophils % 67.8 Lymphocytes % 20.9 Monocytes % 7.5 Eosinophils % 3.4 Basophils % 0.1 Nucleated Red Blood Cells % 0.0 Neutrophils # 6.2 Lymphocytes # 1.9 Monocytes # 0.7 Eosinophils # 0.3 Basophils # 0.0 Nucleated Red Blood Cells # 0.0 Test 11/29/16 11:50 11/29/16 12:11 Hemoglobin 7.8 #L Hematocrit 24.5 #L Bedside Glucose 100 Medications Medications Current Medications Heparin Sodium (Porcine) (Heparin (5000 Units/0.5 ml)) 5,000 unit Q12 SC Last administered on 11/29/16t 08:43; Admin Dose 5,000 UNIT; Start 11/15/16 at 21:00 Miscellaneous Information 1 ea NOTE XX ; Start 11/16/16 at 01:30 Glucose (Glutose) 15 gm Q15M PRN PO DECREASED GLUCOSE; Start 11/16/16 at 01:30 Glucose (Glutose) 22.5 gm Q15M PRN PO DECREASED GLUCOSE; Start 11/16/16 at 01: 30 Dextrose (D50w Syringe) 25 ml Q15M PRN IV DECREASED GLUCOSE; Start 11/16/16 at 01:30 Dextrose (D50w Syringe) 50 ml Q15M PRN IV DECREASED GLUCOSE; Start 11/16/16 at 01:30 Glucagon (Glucagen) 1 mg Q15M PRN IM DECREASED GLUCOSE; Start 11/16/16 at 01:30 Glucose (Glutose) 15 gm Q15M PRN BUCCAL DECREASED GLUCOSE; Start 11/16/16 at 01 :30 Ondansetron HCl (Zofran Inj) 4 mg Q4H PRN IV NAUSEA AND/OR VOMITING; Start 05/26 at 08:30 Insulin Aspart (Novolog Insulin Pen) NOVOLOG *MILD* ALGORI... Q6 SC Last administered on 11/23/16 12:01; Admin Dose 1 UNIT; Start 11/17/16 at 12:00 Acetaminophen (Tylenol Liquid) 650 mg Q4H PRN GTB PAIN AND OR ELEVATED TEMP Last administered on 11/25/16 09:09; Admin Dose 650 MG; Start 11/21/16 at 09:00 Lansoprazole (Prevacid) 30 mg BID@ GTB Last administered on 11/29/16 05: 50; Admin Dose 30 MG; Start 11/27/16 at 06:00 DRAGAN NAVA NP November 29, 2016 15:16
--- NOTE | 2016-11-29 19:01 | PN ---
DATE: 11/29/2016 CARDIOLOGY FOLLOWUP SUBJECTIVE: Discussed with the staff. Rhythm strips reviewed. The patient remains in sinus rhythm, h ad episodes of atrial fibrillation with rapid ventricular response, converted back to sinus rhythm s pontaneously. The patient currently ____ . MEDICATIONS: Reviewed. PHYSICAL EXAMINATION: VITAL SIGNS: Temperature 97.7, heart rate of 88, blood pressure 155/81, respirations 18, saturating 95%. HEENT: Normocephalic, atraumatic. NECK: Status post trach on the vent. CARDIOVASCULAR: Regular rate and rhythm, systolic murmur. PULMONARY: With no wheezes heard anteriorly. GASTROINTESTINAL: Soft, nontender. EXTREMITIES: Trivial edema. NEUROLOGIC: Lethargic, sleeping. There are multiple ecchymoses. LABORATORY: WBC of 9.2, hemoglobin 5.6. Repeat is 7.8, platelet of 270. Sodium 137, potassium 4.2 . ASSESSMENT AND PLAN: 1. Hypoxemic ____ respiratory failure, status post tracheostomy. 2. Severe anemia, status multiple transfusions. 3. History of paroxysmal atrial fibrillation, unable to anticoagulate her though due to recurrent a nemia and possible bleed. 4. Acute renal failure on dialysis. 5. History of ____ neuropathy. 6. Diabetes. RECOMMENDATIONS: We will continue with the current cardiac care. Electrolytes will be corrected as needed. Vent support will be continued. Continue to monitor on telemetry. Antibiotic as per inte rna medicine. Dictated By: KIAH GARCIA MD AV/SEEMA Conf#: [id number] DID#: [id number] CC: CHARLIE BUSBY DO;*EndCC*
[2016-11-30] VITALS (35 sets, daily range): BP systolic 96–132; BP diastolic 51–68; PULSE 75–91; RESP 15–23
[2016-11-30] MEDS: LANSOPRAZOLE 30 MG CAP GTB SCH ×2 (05:21→18:00)
[2016-11-30] MEDS: INSULIN ASPART [NOVOLOG] 3 ML PEN SC SCH ×4 (05:24→21:18)
[2016-11-30 07:20] LABS: ADD SCAN DIFF NO
[2016-11-30 07:38] LABS: BASOPHILS % 0.3 % (0.0-2.0); EOSINOPHILS # 0.3 10^3/ul (0.0-0.5); EOSINOPHILS % 3.8 % (0.0-7.0); HEMATOCRIT 22.7 % (37.0-47.0); LYMPHOCYTES # 1.8 10^3/ul (0.8-2.9); LYMPHOCYTES % 24.9 % (15.0-51.0); MEAN CORPUSCULAR HEMOGLOBIN 28.1 pg (29.0-33.0); MEAN CORPUSCULAR HGB CONC 30.8 g/dl (32.0-37.0); MEAN CORPUSCULAR VOLUME 91.2 fl (82.0-101.0); MEAN PLATELET VOLUME 10.7 fl (7.4-10.4); MONOCYTE # 0.8 10^3/ul (0.3-0.9); MONOCYTES % 11.1 % (0.0-11.0); NEUTROPHIL # 4.3 10^3/ul (1.6-7.5); NEUTROPHILS % 59.6 % (39.0-77.0); PLATELET COUNT 253 10^3/UL (140-415); RED BLOOD COUNT 2.49 10^6/ul (4.20-5.40); RED CELL DISTRIBUTION WIDTH 17.3 % (11.5-14.5); WHITE BLOOD COUNT 7.3 10^3/ul (4.8-10.8)
[2016-11-30] MEDS ORDERED: SOD CHLORIDE 0.9% 250 ML IV* ONE (07:50)
[2016-11-30 08:01] LABS: CALCIUM 8.7 mg/dl (8.4-10.2); CREATININE 2.27 mg/dl (0.44-1.00); PHOSPHORUS 4.4 mg/dl (2.5-4.9); POTASSIUM 4.2 mmol/L (3.5-5.1)
[2016-11-30] MEDS: HEPARIN 5,000 UNIT/0.5 ML VIAL SC SCH ×2 (09:00→21:23)
[2016-11-30] MEDS: IPRATROPIUM (HFA) 12.9 GM INHALER INH PRN (09:15)
[2016-11-30] MEDS: LEVALBUTEROL (HFA) 15 GM INHALER INH PRN (09:15)
--- NOTE | 2016-11-30 09:24 | PN ---
DATE: 11/30/2016 CARDIOLOGY FOLLOWUP PROGRESS NOTE SUBJECTIVE: Discussed with the staff. Rhythm strip was reviewed. The patient remains in sinus rhy thm. No more atrial fibrillation. She is still on the vent. MEDICATIONS: Reviewed as per medication reconciliation, was personally reviewed. PHYSICAL EXAMINATION: VITAL SIGNS: Temperature 98.6, heart rate of 83, blood pressure 122/64, respiratory rate of 19. HEENT: Normocephalic, atraumatic. NECK: Status post tracheostomy, on the vent. CARDIOVASCULAR: Regular rate and rhythm, systolic murmur. PULMONARY: Anteriorly with no wheezes heard, diffuse rhonchi. GASTROINTESTINAL: Soft, nontender. EXTREMITIES: Trivial edema. NEUROLOGIC: Awake, appears to be alert. PSYCHIATRIC: Appears to be anxious. LABORATORY: Shows WBC of 7.3, hemoglobin of 7.0, platelets of 253. Chemistry is still pending. Gl ucose of 106. ASSESSMENT AND PLAN: 1. Hypoxemia and hypercapnic respiratory failure, status post tracheostomy. 2. Paroxysmal atrial fibrillation, currently in sinus rhythm. 3. Sepsis and pneumonia, possible aspiration, urinary tract infection as well. 4. Severe anemia. 5. Lactic acidosis, improved. 6. Renal failure, on dialysis. 7. Severe anemia. 8. Fluid overload, congestive heart failure, currently appears to be stable. 9. Diabetes. 10. History of breast carcinoma status post mastectomy. RECOMMENDATIONS: We will continue with the current cardiac care. Vent support and respiratory care will be continued. Antibiotic is managed as per ID recommendations. Diabetic control will be cont inued. Hemodialysis as per renal. Dictated By: KIAH GARCIA MD AV/SEEMA Conf#: [id number] DID#: [id number] CC: CHARLIE BUSBY DO;*EndCC*
--- NOTE | 2016-11-30 09:49 | PN ---
DATE: 11/30/2016 SUBJECTIVE: The patient is stable, no acute events overnight. No fevers, chills, nausea, vomiting. No shortness of breath. OBJECTIVE: VITAL SIGNS: Blood pressure 122/64, respirations 19, pulse 73, temperature 98.6. HEENT: Head is normocephalic. NECK: Supple. HEART: Regular rate. LUNGS: Show diminished breath sounds at the bases. ABDOMEN: Soft, nontender to palpation. No rebound or guarding. EXTREMITIES: Negative for clubbing, cyanosis. No edema. DERMATOLOGIC: No rashes. MUSCULOSKELETAL: No joint effusions. NEUROLOGIC: No change in exam. MEDICATIONS: The patient's medications have been reviewed. LABORATORY DATA: Shows white count 7.3, hemoglobin 7.0, hematocrit 22.7, platelet count is 253. BM P is pending. ASSESSMENT AND PLAN: 1. Sepsis secondary to pneumonia, urinary tract infection. The patient is clinically improving, C urrently off antibiotics. We will continue to monitor. 2. Diarrhea, resolved. Continue to monitor. 3. Lactic acidosis secondary to sepsis, improved. Continue to observe. 4. Acute encephalopathy. The etiology is toxic metabolic. Mental status improving. The patient's CT scan showed no evidence of acute stroke. 5. Anemia of chronic kidney disease. We will transfuse 2 units of packed red blood cells. Continu e Epogen. Monitor hemoglobin and hematocrit levels closely. No gross evidence of overt gastrointes tinal bleeding. 6. Dysphagia, status post percutaneous endoscopic gastrostomy. Continue tube feeding. 7. Atrial fibrillation, rate controlled. Continue medical management. 8. Mineral bone disorder. Continue to monitor calcium and phosphorus levels. 9. Congestive heart failure. Continue current treatment plan. 10. Diabetes. Continue Accu-Cheks and insulin sliding scale. 11. History of breast cancer, status post mastectomy. 12. Gastrointestinal and deep venous thrombosis prophylaxis. Continue proton pump inhibitor and he asia. DISPOSITION: The patient is pending outpatient subacute hemodialysis placement. Dictated By: CHARLIE ESPINOSA/SEEMA Conf#: [id number] DID#: [id number]
--- NOTE | 2016-11-30 16:54 | CONS ---
Date/Time of Note Date/Time of Note DATE: 11/30/16 TIME: 16:52 Consult Date/Type/Reason Admit Date/Time November 15, 2016 at 06:52 Initial Consult Date 11/15/16 Type of Consultation: Pulmonary ICU Ordering Provider: YAYO EDGAR DO Subjective Patient comfortable at rest no acute distress Objective Vital Signs Date Time Temp Pulse Resp B/P Pulse Ox O2 Delivery O2 Flow Rate FiO2 11/30/16 16:38 82 11/30/16 15:41 98.1 19 96/54 96 11/30/16 14:39 50 Intake and Output 11/29/16 11/29/16 11/30/16 15:00 23:00 07:00 Intake Total 585 ml 585 ml Balance 585 ml 585 ml Exam PHYSICAL EXAMINATION GENERAL: Elderly lady on mechanical ventilation comfortable at rest no acute distress VITAL SIGNS: see below. HEENT: Pupils equal, round, and reactive to light. Tracheostomy site clean and intact. CARDIAC: S1, S2, 1/6 systolic ejection murmur CHEST: Diminished air entry bilaterally. ABDOMEN: Mildly distended. Bowel sounds present no guarding or rebound EXTREMITIES: No cyanosis, clubbing edema +1 NEUROLOGIC: Generalized weakness Results/Medications Result Diagram: 11/30/16 0610 11/30/16 0610 Results 24 hrs Laboratory Tests Test 11/29/16 17:51 11/29/16 23:43 11/30/16 05:24 11/30/16 06:10 Bedside Glucose 93 106 106 White Blood Count 7.3 # Red Blood Count 2.49 #L Hemoglobin 7.0 L Hematocrit 22.7 L Mean Corpuscular Volume 91.2 Mean Corpuscular Hemoglobin 28.1 L Mean Corpuscular Hemoglobin Concent 30.8 L Red Cell Distribution Width 17.3 H Platelet Count 253 Mean Platelet Volume 10.7 H Neutrophils % 59.6 Lymphocytes % 24.9 Monocytes % 11.1 H Eosinophils % 3.8 Basophils % 0.3 Nucleated Red Blood Cells % 0.0 Neutrophils # 4.3 Lymphocytes # 1.8 Monocytes # 0.8 Eosinophils # 0.3 Basophils # 0.0 Nucleated Red Blood Cells # 0.0 Sodium Level 132 L Potassium Level 4.2 Chloride Level 97 Carbon Dioxide Level 26 Anion Gap 13 # Blood Urea Nitrogen 55 H Creatinine 2.27 H Glucose Level 93 Calcium Level 8.7 Phosphorus Level 4.4 Magnesium Level 2.0 Test 11/30/16 12:52 Bedside Glucose 108 Medications Current Medications Heparin Sodium (Porcine) (Heparin (5000 Units/0.5 ml)) 5,000 unit Q12 SC Last administered on 11/29/16 21:32; Admin Dose 5,000 UNIT; Start 11/15/16 at 21:00 Miscellaneous Information 1 ea NOTE XX ; Start 11/16/16 at 01:30 Glucose (Glutose) 15 gm Q15M PRN PO DECREASED GLUCOSE; Start 11/16/16 at 01:30 Glucose (Glutose) 22.5 gm Q15M PRN PO DECREASED GLUCOSE; Start 11/16/16 at 01: 30 Dextrose (D50w Syringe) 25 ml Q15M PRN IV DECREASED GLUCOSE; Start 11/16/16 at 01:30 Dextrose (D50w Syringe) 50 ml Q15M PRN IV DECREASED GLUCOSE; Start 11/16/16 at 01:30 Glucagon (Glucagen) 1 mg Q15M PRN IM DECREASED GLUCOSE; Start 11/16/16 at 01:30 Glucose (Glutose) 15 gm Q15M PRN BUCCAL DECREASED GLUCOSE; Start 11/16/16 at 01 :30 Ondansetron HCl (Zofran Inj) 4 mg Q4H PRN IV NAUSEA AND/OR VOMITING; Start 05/26 at 08:30 Insulin Aspart (Novolog Insulin Pen) NOVOLOG *MILD* ALGORI... Q6 SC Last administered on 11/23/16 12:01; Admin Dose 1 UNIT; Start 11/17/16 at 12:00 Acetaminophen (Tylenol Liquid) 650 mg Q4H PRN GTB PAIN AND OR ELEVATED TEMP Last administered on 11/25/16 09:09; Admin Dose 650 MG; Start 11/21/16 at 09:00 Lansoprazole (Prevacid) 30 mg BID@18 GTB Last administered on 11/30/16 05: 21; Admin Dose 30 MG; Start 11/27/16 at 06:00 Assessment/Plan Chief Complaint/Hosp Course Assessment 1. Patient admitted for sepsis from UTI possibly line sepsis, improved. 2. Chronic renal failure, on hemodialysis. 3. Chronic respiratory failure, now requiring invasive mechanical ventilation due to sepsis. 4. History of dementia 5. History of cardiac arrhythmia. Status post pacemaker placement. 6. History of anemia Plan 1. Continue mechanical ventilation, decrease FiO2 as tolerated currently 50% 2. Consider transfusion packed red blood cells, and GI evaluation? 3. Continue tube feeding 4. Chest x-ray shows CHF and compressive atelectasis 5. Continue DVT and GI prophylaxis Disposition Continue telemetry care Problems: RHONDA BU[facility]STRO MD[facility] November 30, 2016 16:54
[2016-12-01] VITALS (25 sets, daily range): BP systolic 97–126; BP diastolic 52–81; PULSE 81–89; RESP 17–26
--- NOTE | 2016-12-01 00:40 | CONS ---
DATE OF ADMISSION: 11/15/2016 DATE OF CONSULTATION: REFERRING PHYSICIAN: Charlie Busby MD REASON FOR CONSULTATION: Positive stool guaiac and anemia. HISTORY OF PRESENT ILLNESS: The patient is a 66-year-old female with a bilateral breast cancer stat us post mastectomy in 1992, initially presented to ____ hospital with pneumonia. The patient could not be weaned off. Required trach and PEG. She also developed C. difficile colitis which was succ essfully treated with vancomycin. Then patient was transferred [facility] for continued ca re for ARDS and respiratory failure. She developed also ____ polyneuropathy. Subsequently after s tabilizing at [facility] the patient was transferred to [facility] for the rehabilitation. In [facility], the patient was weaned off the vent, but a few days prior to this hospitalization, patient had one episode of emesis, resulted in aspiration. The patient was transferred to [facility] for further management. The patient is treated here for the septic shock. The source of sepsis, possible pneumonia and UTI. GI consult was called in for anemia and positive sto ol guaiac. I discussed the case with the staff and [employer], there was no evidence of black stool and th e G-tube aspirate was also negative for blood. PAST MEDICAL HISTORY: As described, vent-dependent respiratory failure, bilateral mastectomy, statu s for post-peg and trach, atrial fibrillation, history of diabetes mellitus and breast cancer status post mastectomy. PHYSICAL EXAMINATION GENERAL: Patient is alert, awake and responds to command now. CARDIOVASCULAR: No murmur, gallop or click. LUNGS: Air entry is good. She is on the vent. ABDOMEN: Benign. He has got a NG tube, tolerating feeding. EXTREMITIES: No edema. CENTRAL NERVOUS SYSTEM: Responding to on. LABORATORY DATA: Stool for occult blood was reported positive. Hematocrit today was 22. She is get ting 2 units of blood transfusion during dialysis. BUN was 55, creatinine 2.7. INR was mildly elev ated at 1.7. Patient's LFT's on November 15 were normal. Serologies for Hep A, B, C was negative. IMPRESSION: 1. Septic shock. The patient is on antibiotics. 2. Vent dependent respiratory failure. 3. Status post bilateral mastectomy for breast cancer many years ago. 4. Diabetes mellitus. 5. Atrial fibrillation. 6. Anemia. 7. Positive stool guaiac. PLAN: To continue PPI. Continue Epogen and continue present care. We will monitor H and H closely and will follow. If there is any active bleeding, then we will proceed with endoscopy. At this po int, will continue to monitor H and H. Dictated By: DEBRA BENAVIDES/NTS Conf#: [id number] DID#: [id number] CC: CHARLIE BUSBY DO;*EndCC*
[2016-12-01] MEDS: INSULIN ASPART [NOVOLOG] 3 ML PEN SC SCH ×3 (05:44→18:00)
[2016-12-01] MEDS: LANSOPRAZOLE 30 MG CAP GTB SCH ×2 (05:45→19:02)
[2016-12-01 07:08] LABS: ADD SCAN DIFF NO
[2016-12-01 07:18] LABS: BASOPHILS % 0.4 % (0.0-2.0); EOSINOPHILS # 0.3 10^3/ul (0.0-0.5); EOSINOPHILS % 3.7 % (0.0-7.0); HEMATOCRIT 27.8 % (37.0-47.0); HEMOGLOBIN 8.8 g/dl (12.0-16.0); LYMPHOCYTES # 1.6 10^3/ul (0.8-2.9); MEAN CORPUSCULAR HEMOGLOBIN 28.4 pg (29.0-33.0); MEAN CORPUSCULAR HGB CONC 31.7 g/dl (32.0-37.0); MEAN CORPUSCULAR VOLUME 89.7 fl (82.0-101.0); MEAN PLATELET VOLUME 10.9 fl (7.4-10.4); MONOCYTE # 1.1 10^3/ul (0.3-0.9); MONOCYTES % 13.1 % (0.0-11.0); NEUTROPHIL # 5.3 10^3/ul (1.6-7.5); PLATELET COUNT 241 10^3/UL (140-415); RED CELL DISTRIBUTION WIDTH 17.1 % (11.5-14.5); WHITE BLOOD COUNT 8.3 10^3/ul (4.8-10.8)
[2016-12-01 08:02] LABS: CALCIUM 8.8 mg/dl (8.4-10.2); CREATININE 1.56 mg/dl (0.44-1.00); PHOSPHORUS 2.7 mg/dl (2.5-4.9); POTASSIUM 3.6 mmol/L (3.5-5.1)
--- NOTE | 2016-12-01 09:23 | PN ---
DATE: 12/01/2016 SUBJECTIVE: The patient had hemodialysis yesterday and received 2 units of PRBCs, tolerated it well . No other events noted. OBJECTIVE: VITAL SIGNS: Blood pressure is 104/52, respirations 18, pulse 84, temperature 98.0. HEENT: Head is normocephalic. NECK: Supple. HEART: Regular rate. LUNGS: Show diminished breath sounds at the base. ABDOMEN: Soft, nontender to palpation. No rebound or guarding. EXTREMITIES: Negative for clubbing, cyanosis. No edema. DERMATOLOGIC: No rashes. MUSCULOSKELETAL: No joint effusions. NEUROLOGIC: No change in exam. MEDICATIONS: The patient's medications have been reviewed. LABORATORY DATA: Shows white count 8.3, hemoglobin 8.8, hematocrit 27.8, platelet count is 241. So dium 132, potassium 4.2, BUN 55, creatinine 2.27. ASSESSMENT AND PLAN: 1. Sepsis secondary to pneumonia, urinary tract infection. The patient is clinically improving, cu rrently off antibiotics, continue to monitor. 2. Diarrhea, resolved. Continue to monitor. 3. Lactic acidosis secondary to sepsis, improved. 4. Anemia with likelihood of chronic kidney disease. The patient is status post blood transfusion. The patient's stool for OB was positive. Appreciate GI's evaluation. No immediate need for endos copy at this time as there is no active bleeding. Will continue to monitor. 5. Dysphagia status post percutaneous endoscopic gastrostomy. Continue tube feeding. 6. Acute kidney injury on top of chronic kidney disease, now likely progressed to end-stage renal d isease. The patient is dialysis-dependent. Will continue dialysis 3 times weekly. Last hemodialys is was yesterday. Plan for dialysis tomorrow. 7. Atrial fibrillation, rate controlled. Continue medical management. 8. Mineral bone disorder. Continue to monitor calcium and phosphorus levels. 9. History of congestive heart failure. Continue current treatment plan. 10. Diabetes. Continue Accu-Cheks and insulin sliding scale. 11. History of breast cancer status post mastectomy. 12. Acute encephalopathy, etiology toxic metabolic. Mental status is improved. Continue to monito r. 13. Gastrointestinal and deep venous thrombosis prophylaxis. Continue PPIs, heparin. 14. Ventilator-dependent respiratory failure. Vent settings reviewed. ABGs reviewed. Follow up w ith pulmonary. DISPOSITION: The patient is pending outpatient placement, subacute facility once insurance has been cleared. Dictated By: CHARLIE ESPINOSA/SEEMA Conf#: [id number] DID#: [id number]
--- NOTE | 2016-12-01 10:36 | CONS ---
Date/Time of Note Date/Time of Note DATE: 12/01/16 TIME: 10:35 Consult Date/Type/Reason Admit Date/Time November 15, 2016 at 06:52 Initial Consult Date 11/15/16 Type of Consultation: Pulmonary ICU Ordering Provider: YAYO EDGAR DO Subjective Patient continues to remain stable continues at FiO2 50%. Objective Vital Signs Date Time Temp Pulse Resp B/P Pulse Ox O2 Delivery O2 Flow Rate FiO2 12/01/16 09:30 70 20 100 50 12/01/16 08:07 98.6 115/65 Intake and Output 11/30/16 11/30/16 12/01/16 15:00 23:00 07:00 Intake Total 1100 ml 585 ml Output Total 3000 ml Balance -1900 ml 585 ml Exam PHYSICAL EXAMINATION GENERAL: Elderly lady on mechanical ventilation comfortable at rest no acute distress VITAL SIGNS: see below. HEENT: Pupils equal, round, and reactive to light. Tracheostomy site clean and intact. CARDIAC: S1, S2, 1/6 systolic ejection murmur CHEST: Diminished air entry bilaterally. ABDOMEN: Mildly distended. Bowel sounds present no guarding or rebound EXTREMITIES: No cyanosis, clubbing edema +1 NEUROLOGIC: Generalized weakness Results/Medications Result Diagram: 12/01/16 0549 12/01/16 0549 Results 24 hrs Laboratory Tests Test 11/30/16 12:52 11/30/16 21:09 12/01/16 01:28 12/01/16 05:40 Bedside Glucose 108 97 103 113 Test 12/01/16 05:49 White Blood Count 8.3 Red Blood Count 3.10 #L Hemoglobin 8.8 #L Hematocrit 27.8 #L Mean Corpuscular Volume 89.7 Mean Corpuscular Hemoglobin 28.4 L Mean Corpuscular Hemoglobin Concent 31.7 L Red Cell Distribution Width 17.1 H Platelet Count 241 Mean Platelet Volume 10.9 H Neutrophils % 63.0 Lymphocytes % 19.0 Monocytes % 13.1 H Eosinophils % 3.7 Basophils % 0.4 Nucleated Red Blood Cells % 0.0 Neutrophils # 5.3 Lymphocytes # 1.6 Monocytes # 1.1 H Eosinophils # 0.3 Basophils # 0.0 Nucleated Red Blood Cells # 0.0 Sodium Level 137 Potassium Level 3.6 Chloride Level 101 Carbon Dioxide Level 29 Anion Gap 11 Blood Urea Nitrogen 29 #H Creatinine 1.56 H Glucose Level 99 Calcium Level 8.8 Phosphorus Level 2.7 Magnesium Level 2.0 Medications Current Medications Heparin Sodium (Porcine) (Heparin (5000 Units/0.5 ml)) 5,000 unit Q12 SC Last administered on 11/30/16 21:23; Admin Dose 5,000 UNIT; Start 11/15/16 at 21:00 Miscellaneous Information 1 ea NOTE XX ; Start 11/16/16 at 01:30 Glucose (Glutose) 15 gm Q15M PRN PO DECREASED GLUCOSE; Start 11/16/16 at 01:30 Glucose (Glutose) 22.5 gm Q15M PRN PO DECREASED GLUCOSE; Start 11/16/16 at 01: 30 Dextrose (D50w Syringe) 25 ml Q15M PRN IV DECREASED GLUCOSE; Start 11/16/16 at 01:30 Dextrose (D50w Syringe) 50 ml Q15M PRN IV DECREASED GLUCOSE; Start 11/16/16 at 01:30 Glucagon (Glucagen) 1 mg Q15M PRN IM DECREASED GLUCOSE; Start 11/16/16 at 01:30 Glucose (Glutose) 15 gm Q15M PRN BUCCAL DECREASED GLUCOSE; Start 11/16/16 at 01 :30 Ondansetron HCl (Zofran Inj) 4 mg Q4H PRN IV NAUSEA AND/OR VOMITING; Start 05/26 at 08:30 Insulin Aspart (Novolog Insulin Pen) NOVOLOG *MILD* ALGORI... Q6 SC Last administered on 11/23/16 12:01; Admin Dose 1 UNIT; Start 11/17/16 at 12:00 Acetaminophen (Tylenol Liquid) 650 mg Q4H PRN GTB PAIN AND OR ELEVATED TEMP Last administered on 11/25/16 09:09; Admin Dose 650 MG; Start 11/21/16 at 09:00 Lansoprazole (Prevacid) 30 mg BID@ GTB Last administered on 12/01/16 05: 45; Admin Dose 30 MG; Start 11/27/16 at 06:00 Assessment/Plan Chief Complaint/Hosp Course Assessment 1. Patient admitted for sepsis from UTI possibly line sepsis, improved. Resolved leukocytosis 2. Chronic renal failure, on hemodialysis. 3. Chronic respiratory failure, now requiring invasive mechanical ventilation 4. History of dementia 5. History of cardiac arrhythmia. Status post pacemaker placement. 6. History of anemia Plan 1. Continue mechanical ventilation, decrease FiO2 as tolerated currently 50% 2. Monitor H&H 3. Continue tube feeding 4. Chest x-ray shows CHF and compressive atelectasis 5. Continue DVT and GI prophylaxis Disposition Continue telemetry care discharge planning in process Problems: RH[facility]DA [facility]STRO [facility], [facility] December 01, 2016 10:36
--- NOTE | 2016-12-01 10:37 | CONS ---
Date/Time of Note Date/Time of Note DATE: 12/01/16 TIME: 10:35 Assessment/Plan Assessment/Plan Additional Assessment/Plan IMPRESSION: 1. Septic shock. The patient is off antibiotics. 2. Vent dependent respiratory failure. 3. Status post bilateral mastectomy for breast cancer many years ago. 4. Diabetes mellitus. 5. Atrial fibrillation. 6. Anemia. 7. Positive stool guaiac. Plan Continue Epogen, PPI We will monitor H&H closely Consultation Date/Type/Reason Admit Date/Time November 15, 2016 at 06:52 Initial Consult Date 11/15/16 Type of Consultation: Pulmonary ICU Referring Provider: YAYO EDGAR DO 24 HR Interval Summary Constitutional: improved, no complaints Exam/Review of Systems Vital Signs Vitals Vital Signs Date Time Temp Pulse Resp B/P Pulse Ox O2 Delivery O2 Flow Rate FiO2 12/01/16 09:30 70 20 100 50 12/01/16 08:07 98.6 115/65 Intake and Output 11/30/16 11/30/16 12/01/16 15:00 23:00 07:00 Intake Total 1100 ml 585 ml Output Total 3000 ml Balance -1900 ml 585 ml Exam Constitutional: alert, oriented, well developed Psych: nl mood/affect, no complaints Head: atraumatic, normocephalic Eyes: EOMI, PERRL, nl conjunctiva, nl lids, nl sclera ENMT: nl external ears & nose, nl lips & teeth, nl nasal mucosa & septum Neck: non-tender, supple Respiratory: clear to auscultation, normal air movement Cardiovascular: nl pulses, regular rate and rhythm Gastrointestinal: nl liver, spleen, non-tender, soft Musculoskeletal: nl extremities to inspection, nl gait and stance Extremities: normal pulses 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: SALESPERSON SHOES II-XII intact, nl mental status, nl speech, nl strength Skin: nl turgor, No rash or lesions Lymph: nl lymph nodes Results Result Diagram: 12/01/16 0549 12/01/16 0549 Results 24 hrs Laboratory Tests Test 11/30/16 12:52 11/30/16 21:09 12/01/16 01:28 12/01/16 05:40 Bedside Glucose 108 97 103 113 Test 12/01/16 05:49 White Blood Count 8.3 Red Blood Count 3.10 #L Hemoglobin 8.8 #L Hematocrit 27.8 #L Mean Corpuscular Volume 89.7 Mean Corpuscular Hemoglobin 28.4 L Mean Corpuscular Hemoglobin Concent 31.7 L Red Cell Distribution Width 17.1 H Platelet Count 241 Mean Platelet Volume 10.9 H Neutrophils % 63.0 Lymphocytes % 19.0 Monocytes % 13.1 H Eosinophils % 3.7 Basophils % 0.4 Nucleated Red Blood Cells % 0.0 Neutrophils # 5.3 Lymphocytes # 1.6 Monocytes # 1.1 H Eosinophils # 0.3 Basophils # 0.0 Nucleated Red Blood Cells # 0.0 Sodium Level 137 Potassium Level 3.6 Chloride Level 101 Carbon Dioxide Level 29 Anion Gap 11 Blood Urea Nitrogen 29 #H Creatinine 1.56 H Glucose Level 99 Calcium Level 8.8 Phosphorus Level 2.7 Magnesium Level 2.0 Medications Medications Current Medications Heparin Sodium (Porcine) (Heparin (5000 Units/0.5 ml)) 5,000 unit Q12 SC Last administered on 11/30/16 21:23; Admin Dose 5,000 UNIT; Start 11/15/16 at 21:00 Miscellaneous Information 1 ea NOTE XX ; Start 11/16/16 at 01:30 Glucose (Glutose) 15 gm Q15M PRN PO DECREASED GLUCOSE; Start 11/16/16 at 01:30 Glucose (Glutose) 22.5 gm Q15M PRN PO DECREASED GLUCOSE; Start 11/16/16 at 01: 30 Dextrose (D50w Syringe) 25 ml Q15M PRN IV DECREASED GLUCOSE; Start 11/16/16 at 01:30 Dextrose (D50w Syringe) 50 ml Q15M PRN IV DECREASED GLUCOSE; Start 11/16/16 at 01:30 Glucagon (Glucagen) 1 mg Q15M PRN IM DECREASED GLUCOSE; Start 11/16/16 at 01:30 Glucose (Glutose) 15 gm Q15M PRN BUCCAL DECREASED GLUCOSE; Start 11/16/16 at 01 :30 Ondansetron HCl (Zofran Inj) 4 mg Q4H PRN IV NAUSEA AND/OR VOMITING; Start 05/26 at 08:30 Insulin Aspart (Novolog Insulin Pen) NOVOLOG *MILD* ALGORI... Q6 SC Last administered on 11/23/16 12:01; Admin Dose 1 UNIT; Start 11/17/16 at 12:00 Acetaminophen (Tylenol Liquid) 650 mg Q4H PRN GTB PAIN AND OR ELEVATED TEMP Last administered on 11/25/16 09:09; Admin Dose 650 MG; Start 11/21/16 at 09:00 Lansoprazole (Prevacid) 30 mg BID@18 GTB Last administered on 12/01/16 05: 45; Admin Dose 30 MG; Start 11/27/16 at 06:00 DEBRA JEAN MD December 01, 2016 10:36
[2016-12-01] MEDS: HEPARIN 5,000 UNIT/0.5 ML VIAL SC SCH ×2 (11:19→21:14)
--- NOTE | 2016-12-01 14:02 | CONS ---
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 hominis and Enterococcus - Hx tooth abscess treated with amoxicillin - Diarrhea; c diff negative (hx C diff 10/05/2016 & at [facility] earlier this year) - Hx candiduria (C. 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 - VDRF with tracheostomy - Hx ARDS & COPD - PAF with RVR, converted back to SR - PPM - Acute on chronic diastolic HF - PREMA on CKD requiring HD (previously on CRRT at [facility] 08/2016) - ACD - Hx DIC and thrombocytopenia - Acute toxic metabolic encephalopathy - improving - Dysphagia s/p PEG - Hx R breast CA s/p bilateral mastectomies - Hx DVT per records from [facility] - Critical care polyneuropathy confirmed by EMG at [facility] ~08/2016 - Major depression - Allergy to vancomycin and erythromycin with detail unknown - Acute respiratory distress 11/25/2016 likely d/t anxiety - improved Recommendations: - monitor off abx - probiotics - DC planning in progress: awaiting subacute placement and outpt HD arrangement Management d/w Dr. Rouse Problems: Consultation Date/Type/Reason Admit Date/Time November 15, 2016 at 06:52 Initial Consult Date 11/15/16 Type of Consultation: Infectious Disease Referring Provider: YAYO EDGAR DO 24 HR Interval Summary Free Text/Dictation No new issues. Awaiting subacute placement. Exam/Review of Systems Vital Signs Vitals Vital Signs Date Time Temp Pulse Resp B/P Pulse Ox O2 Delivery O2 Flow Rate FiO2 12/01/16 12:00 89 12/01/16 11:10 25 98 50 12/01/16 11:09 98.0 126/66 Intake and Output 11/30/16 11/30/16 12/01/16 15:00 23:00 07:00 Intake Total 1100 ml 585 ml Output Total 3000 ml Balance -1900 ml 585 ml Exam Constitutional: Sleeping but arousable; appears frail Psych: other (calm) Head: atraumatic, normocephalic Eyes: nl sclera ENMT: other (declines to open mouth for examination) Neck: other (tracheostomy intact) Respiratory: diminished breath sounds Cardiovascular: regular rate and rhythm Gastrointestinal: distended (mildly), other (G tube intact with tube feeds), soft Genitourinary - Female: other (incontinent of urine; wearing diaper) Musculoskeletal: muscle weakness Extremities: No cyanosis, No edema 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: sleeping Skin: nl turgor, other (Right chest wall permacath and RUE PICC intact with no e/o infection) Results Result Diagram: 12/01/1649 12/01/1649 Results 24 hrs Laboratory Tests Test 11/30/16 21:09 12/01/16 01:28 12/01/16 05:40 12/01/16 05:49 Bedside Glucose 97 103 113 White Blood Count 8.3 Red Blood Count 3.10 #L Hemoglobin 8.8 #L Hematocrit 27.8 #L Mean Corpuscular Volume 89.7 Mean Corpuscular Hemoglobin 28.4 L Mean Corpuscular Hemoglobin Concent 31.7 L Red Cell Distribution Width 17.1 H Platelet Count 241 Mean Platelet Volume 10.9 H Neutrophils % 63.0 Lymphocytes % 19.0 Monocytes % 13.1 H Eosinophils % 3.7 Basophils % 0.4 Nucleated Red Blood Cells % 0.0 Neutrophils # 5.3 Lymphocytes # 1.6 Monocytes # 1.1 H Eosinophils # 0.3 Basophils # 0.0 Nucleated Red Blood Cells # 0.0 Sodium Level 137 Potassium Level 3.6 Chloride Level 101 Carbon Dioxide Level 29 Anion Gap 11 Blood Urea Nitrogen 29 #H Creatinine 1.56 H Glucose Level 99 Calcium Level 8.8 Phosphorus Level 2.7 Magnesium Level 2.0 Test 12/01/16 11:29 Bedside Glucose 101 Medications Medications Current Medications Heparin Sodium (Porcine) (Heparin (5000 Units/0.5 ml)) 5,000 unit Q12 SC Last administered on 12/01/16t 11:19; Admin Dose 5,000 UNIT; Start 11/15/16 at 21:00 Miscellaneous Information 1 ea NOTE XX ; Start 11/16/16 at 01:30 Glucose (Glutose) 15 gm Q15M PRN PO DECREASED GLUCOSE; Start 11/16/16 at 01:30 Glucose (Glutose) 22.5 gm Q15M PRN PO DECREASED GLUCOSE; Start 11/16/16 at 01: 30 Dextrose (D50w Syringe) 25 ml Q15M PRN IV DECREASED GLUCOSE; Start 11/16/16 at 01:30 Dextrose (D50w Syringe) 50 ml Q15M PRN IV DECREASED GLUCOSE; Start 11/16/16 at 01:30 Glucagon (Glucagen) 1 mg Q15M PRN IM DECREASED GLUCOSE; Start 11/16/16 at 01:30 Glucose (Glutose) 15 gm Q15M PRN BUCCAL DECREASED GLUCOSE; Start 11/16/16 at 01 :30 Ondansetron HCl (Zofran Inj) 4 mg Q4H PRN IV NAUSEA AND/OR VOMITING; Start 05/26 at 08:30 Insulin Aspart (Novolog Insulin Pen) NOVOLOG *MILD* ALGORI... Q6 SC Last administered on 11/23/16 12:01; Admin Dose 1 UNIT; Start 11/17/16 at 12:00 Acetaminophen (Tylenol Liquid) 650 mg Q4H PRN GTB PAIN AND OR ELEVATED TEMP Last administered on 11/25/16 09:09; Admin Dose 650 MG; Start 11/21/16 at 09:00 Lansoprazole (Prevacid) 30 mg BID@ GTB Last administered on 12/01/16 05: 45; Admin Dose 30 MG; Start 11/27/16 at 06:00 DRAGAN NAVA NP December 01, 2016 14:02
--- NOTE | 2016-12-01 16:59 | CONS ---
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 hominis and Enterococcus - Hx tooth abscess treated with amoxicillin - Diarrhea; c diff negative (hx C diff 10/05/2016 & at [facility] earlier this year) - Hx candiduria (C. 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 - VDRF with tracheostomy - Hx ARDS & COPD - PAF with RVR, converted back to SR - PPM - Acute on chronic diastolic HF - PREMA on CKD requiring HD (previously on CRRT at [facility] 08/2016) - ACD - Hx DIC and thrombocytopenia - Acute toxic metabolic encephalopathy - improving - Dysphagia s/p PEG - Hx R breast CA s/p bilateral mastectomies - Hx DVT per records from [facility] - Critical care polyneuropathy confirmed by EMG at [facility] ~08/2016 - Major depression - Allergy to vancomycin and erythromycin with detail unknown - Acute respiratory distress 11/25/2016 likely d/t anxiety - improved Recommendations: - monitor off abx - probiotics - awaiting SNF placement and outpt HD arrangement Problems: Consultation Date/Type/Reason Admit Date/Time November 15, 2016 at 06:52 Initial Consult Date 11/15/16 Type of Consultation: Infectious Disease Referring Provider: YAYO EDGAR DO Exam/Review of Systems Vital Signs Vitals Vital Signs Date Time Temp Pulse Resp B/P Pulse Ox O2 Delivery O2 Flow Rate FiO2 12/01/16 16:21 98.0 89 20 123/81 98 12/01/16 15:05 50 Intake and Output 11/30/16 11/30/16 12/01/16 15:00 23:00 07:00 Intake Total 1100 ml 585 ml Output Total 3000 ml Balance -1900 ml 585 ml Exam Constitutional: non-verbal Psych: nl mood/affect, no complaints Eyes: EOMI ENMT: nl external ears & nose, nl lips & teeth, nl nasal mucosa & septum Neck: supple Respiratory: clear to auscultation Cardiovascular: regular rate and rhythm Gastrointestinal: soft Results Result Diagram: 12/01/16 0549 12/01/16 0549 Results 24 hrs Laboratory Tests Test 11/30/16 21:09 12/01/16 01:28 12/01/16 05:40 12/01/16 05:49 Bedside Glucose 97 103 113 White Blood Count 8.3 Red Blood Count 3.10 #L Hemoglobin 8.8 #L Hematocrit 27.8 #L Mean Corpuscular Volume 89.7 Mean Corpuscular Hemoglobin 28.4 L Mean Corpuscular Hemoglobin Concent 31.7 L Red Cell Distribution Width 17.1 H Platelet Count 241 Mean Platelet Volume 10.9 H Neutrophils % 63.0 Lymphocytes % 19.0 Monocytes % 13.1 H Eosinophils % 3.7 Basophils % 0.4 Nucleated Red Blood Cells % 0.0 Neutrophils # 5.3 Lymphocytes # 1.6 Monocytes # 1.1 H Eosinophils # 0.3 Basophils # 0.0 Nucleated Red Blood Cells # 0.0 Sodium Level 137 Potassium Level 3.6 Chloride Level 101 Carbon Dioxide Level 29 Anion Gap 11 Blood Urea Nitrogen 29 #H Creatinine 1.56 H Glucose Level 99 Calcium Level 8.8 Phosphorus Level 2.7 Magnesium Level 2.0 Test 12/01/16 11:29 Bedside Glucose 101 Medications Medications Current Medications Heparin Sodium (Porcine) (Heparin (5000 Units/0.5 ml)) 5,000 unit Q12 SC Last administered on 12/01/16t 11:19; Admin Dose 5,000 UNIT; Start 11/15/16 at 21:00 Miscellaneous Information 1 ea NOTE XX ; Start 11/16/16 at 01:30 Glucose (Glutose) 15 gm Q15M PRN PO DECREASED GLUCOSE; Start 11/16/16 at 01:30 Glucose (Glutose) 22.5 gm Q15M PRN PO DECREASED GLUCOSE; Start 11/16/16 at 01: 30 Dextrose (D50w Syringe) 25 ml Q15M PRN IV DECREASED GLUCOSE; Start 11/16/16 at 01:30 Dextrose (D50w Syringe) 50 ml Q15M PRN IV DECREASED GLUCOSE; Start 11/16/16 at 01:30 Glucagon (Glucagen) 1 mg Q15M PRN IM DECREASED GLUCOSE; Start 11/16/16 at 01:30 Glucose (Glutose) 15 gm Q15M PRN BUCCAL DECREASED GLUCOSE; Start 11/16/16 at 01 :30 Ondansetron HCl (Zofran Inj) 4 mg Q4H PRN IV NAUSEA AND/OR VOMITING; Start 05/26 at 08:30 Insulin Aspart (Novolog Insulin Pen) NOVOLOG *MILD* ALGORI... Q6 SC Last administered on 11/23/16 12:01; Admin Dose 1 UNIT; Start 11/17/16 at 12:00 Acetaminophen (Tylenol Liquid) 650 mg Q4H PRN GTB PAIN AND OR ELEVATED TEMP Last administered on 11/25/16 09:09; Admin Dose 650 MG; Start 11/21/16 at 09:00 Lansoprazole (Prevacid) 30 mg BID@,18 GTB Last administered on 12/01/16 05: 45; Admin Dose 30 MG; Start 11/27/16 at 06:00 RUBY ROY MD December 01, 2016 16:59
[2016-12-02] VITALS (31 sets, daily range): BP systolic 113–160; BP diastolic 62–89; PULSE 74–135; RESP 12–28
[2016-12-02] MEDS: LANSOPRAZOLE 30 MG CAP GTB SCH ×2 (06:00→18:40)
[2016-12-02] MEDS: INSULIN ASPART [NOVOLOG] 3 ML PEN SC SCH ×4 (06:00→18:00)
[2016-12-02 06:38] LABS: ADD SCAN DIFF NO
[2016-12-02 06:43] LABS: BASOPHIL # 0.1 10^3/ul (0.0-0.1); BASOPHILS % 0.5 % (0.0-2.0); EOSINOPHILS # 0.3 10^3/ul (0.0-0.5); EOSINOPHILS % 3.3 % (0.0-7.0); HEMATOCRIT 29.1 % (37.0-47.0); HEMOGLOBIN 9.3 g/dl (12.0-16.0); LYMPHOCYTES # 1.7 10^3/ul (0.8-2.9); LYMPHOCYTES % 15.9 % (15.0-51.0); MEAN CORPUSCULAR HEMOGLOBIN 28.5 pg (29.0-33.0); MEAN CORPUSCULAR VOLUME 89.3 fl (82.0-101.0); MEAN PLATELET VOLUME 10.7 fl (7.4-10.4); MONOCYTE # 1.3 10^3/ul (0.3-0.9); MONOCYTES % 12.4 % (0.0-11.0); NEUTROPHILS % 66.7 % (39.0-77.0); NUCLEATED RED BLOOD CELLS% 0.2 /100WBC (0.0-0.0); PLATELET COUNT 291 10^3/UL (140-415); RED BLOOD COUNT 3.26 10^6/ul (4.20-5.40); WHITE BLOOD COUNT 10.4 10^3/ul (4.8-10.8)
--- NOTE | 2016-12-02 08:29 | PN ---
DATE: 12/02/2016 SUBJECTIVE: The patient had hemodialysis this morning, tolerated it well with 3.5 liters removed. No other acute events noted overnight. No hemoptysis, hematemesis, or hematochezia. OBJECTIVE: VITAL SIGNS: Blood pressure 156/83, respirations 24, pulse 79, temperature 97.5. HEENT: Head is normocephalic. NECK: Shows trach. HEART: Regular rate. LUNGS: Show diminished breath sounds at the base. ABDOMEN: Soft, nontender to palpation, no rebound or guarding. EXTREMITIES: Negative for clubbing, cyanosis, no edema. DERMATOLOGIC: No rashes. MUSCULOSKELETAL: No joint effusions. NEUROLOGIC: No change in exam. MEDICATIONS: The patient's medications have been reviewed. LABORATORY DATA: Shows a white count 10.4, hemoglobin 9.3, hematocrit 29.1, platelet count is 291. ASSESSMENT AND PLAN: 1. Sepsis secondary pneumonia, urinary tract infection. The patient is status post antibiotics. H e remained afebrile off antibiotics. Will continue to monitor. 2. Anemia of chronic disease. The patient is status post blood transfusion with appropriate respon se. Continue to monitor H and H levels. Continue Epogen. 3. Dysphagia status post PEG. Continue tube feeding. 4. Acute kidney injury on top of chronic kidney, now likely progressed to end-stage renal disease. The patient remains dialysis dependent. Continue dialysis 3 times weekly. Plan for next dialysis on Monday. 5. Atrial fibrillation, rate controlled. Continue medical management. 6. Mineral bone disorder. Continue to monitor calcium and phosphorus levels. 7. Congestive heart failure. Continue current treatment plan. 8. Diabetes, continue Accu-Cheks and insulin sliding scale. 9. History of breast cancer status post mastectomy. 10. Acute encephalopathy, etiology is toxic metabolic. Mental status is improved. Continue to mon. 11. Ventilator-dependent respiratory failure. Vent settings have been reviewed. ABG has been revi ewed. Continue to monitor. Follow up with pulmonary. 12. Gastrointestinal and deep venous thrombosis prophylaxis, continue PPI and heparin. 13. Status post lactic acidosis. 14. Status post diarrhea. DISPOSITION: The patient is pending transfer to [facility] once insurance is approved. Dictated By: CHARLIE ESPINOSA/SEEMA Conf#: [id number] [facility]#: [id number]
[2016-12-02] MEDS: HEPARIN 5,000 UNIT/0.5 ML VIAL SC SCH ×2 (09:47→21:42)
--- NOTE | 2016-12-02 11:05 | CONS ---
Date/Time of Note Date/Time of Note DATE: 12/02/16 TIME: 11:04 Consult Date/Type/Reason Admit Date/Time November 15, 2016 at 06:52 Initial Consult Date 11/15/16 Type of Consultation: Pulmonary ICU Ordering Provider: YAYO EDGAR DO Subjective Patient is comfortable this morning Objective Vital Signs Date Time Temp Pulse Resp B/P Pulse Ox O2 Delivery O2 Flow Rate FiO2 12/02/16 09:20 93 26 96 50 12/02/16 07:04 97.5 156/83 Intake and Output 12/01/16 12/01/16 12/02/16 15:00 23:00 07:00 Intake Total 350 ml 580 ml Balance 350 ml 580 ml Exam PHYSICAL EXAMINATION GENERAL: Elderly lady on mechanical ventilation comfortable at rest no acute distress VITAL SIGNS: see below. HEENT: Pupils equal, round, and reactive to light. Tracheostomy site clean and intact. CARDIAC: S1, S2, 1/6 systolic ejection murmur CHEST: Diminished air entry bilaterally. ABDOMEN: Mildly distended. Bowel sounds present no guarding or rebound EXTREMITIES: No cyanosis, clubbing edema +1 NEUROLOGIC: Generalized weakness Results/Medications Result Diagram: 12/02/16 0555 12/01/16 0549 Results 24 hrs Laboratory Tests Test 12/01/16 11:29 12/01/16 19:06 12/01/16 20:34 12/02/16 00:42 Bedside Glucose 101 104 98 118 Test 12/02/16 05:55 White Blood Count 10.4 # Red Blood Count 3.26 L Hemoglobin 9.3 L Hematocrit 29.1 L Mean Corpuscular Volume 89.3 Mean Corpuscular Hemoglobin 28.5 L Mean Corpuscular Hemoglobin Concent 32.0 Red Cell Distribution Width 17.0 H Platelet Count 291 # Mean Platelet Volume 10.7 H Neutrophils % 66.7 Lymphocytes % 15.9 Monocytes % 12.4 H Eosinophils % 3.3 Basophils % 0.5 Nucleated Red Blood Cells % 0.2 H Neutrophils # 7.0 Lymphocytes # 1.7 Monocytes # 1.3 H Eosinophils # 0.3 Basophils # 0.1 Nucleated Red Blood Cells # 0.0 Medications Current Medications Heparin Sodium (Porcine) (Heparin (5000 Units/0.5 ml)) 5,000 unit Q12 SC Last administered on 12/02/16t 09:47; Admin Dose 5,000 UNIT; Start 11/15/16 at 21:00 Miscellaneous Information 1 ea NOTE XX ; Start 11/16/16 at 01:30 Glucose (Glutose) 15 gm Q15M PRN PO DECREASED GLUCOSE; Start 11/16/16 at 01:30 Glucose (Glutose) 22.5 gm Q15M PRN PO DECREASED GLUCOSE; Start 11/16/16 at 01: 30 Dextrose (D50w Syringe) 25 ml Q15M PRN IV DECREASED GLUCOSE; Start 11/16/16 at 01:30 Dextrose (D50w Syringe) 50 ml Q15M PRN IV DECREASED GLUCOSE; Start 11/16/16 at 01:30 Glucagon (Glucagen) 1 mg Q15M PRN IM DECREASED GLUCOSE; Start 11/16/16 at 01:30 Glucose (Glutose) 15 gm Q15M PRN BUCCAL DECREASED GLUCOSE; Start 11/16/16 at 01 :30 Ondansetron HCl (Zofran Inj) 4 mg Q4H PRN IV NAUSEA AND/OR VOMITING; Start 05/26 at 08:30 Insulin Aspart (Novolog Insulin Pen) NOVOLOG *MILD* ALGORI... Q6 SC Last administered on 11/23/16 12:01; Admin Dose 1 UNIT; Start 11/17/16 at 12:00 Acetaminophen (Tylenol Liquid) 650 mg Q4H PRN GTB PAIN AND OR ELEVATED TEMP Last administered on 11/25/16 09:09; Admin Dose 650 MG; Start 11/21/16 at 09:00 Lansoprazole (Prevacid) 30 mg BID@,18 GTB Last administered on 12/01/16 19: 02; Admin Dose 30 MG; Start 11/27/16 at 06:00 Assessment/Plan Chief Complaint/Hosp Course Assessment 1. Patient admitted for sepsis from UTI possibly line sepsis, improved. Resolved leukocytosis 2. Chronic renal failure, on hemodialysis. 3. Chronic respiratory failure, now requiring invasive mechanical ventilation 4. History of dementia 5. History of cardiac arrhythmia. Status post pacemaker placement. 6. History of anemia Plan 1. Continue mechanical ventilation, decrease FiO2 as tolerated currently 50% 2. Monitor H&H 3. Continue tube feeding 4. Chest x-ray shows CHF and compressive atelectasis 5. Continue DVT and GI prophylaxis Disposition Pending transfer to longterm facility Problems: RHONDA BUENROSTRO MD, [facility] December 02, 2016 11:05
[2016-12-02] MEDS ORDERED: DIGOXIN 500 MCG INJ IV ONE (14:30)
[2016-12-02] MEDS: EPOETIN 4000 UNITS/1 ML INJ (ESRD) SC SCH (15:48)
--- NOTE | 2016-12-02 15:57 | CONS ---
Date/Time of Note Date/Time of Note DATE: 12/02/16 TIME: 15:57 Consultation Date/Type/Reason Admit Date/Time November 15, 2016 at 06:52 Initial Consult Date 11/15/16 Type of Consultation: Pulmonary ICU Referring Provider: YAYO EDGAR DO 24 HR Interval Summary Free Text/Dictation No active bleeding as per the staff and the family Exam/Review of Systems Vital Signs Vitals Vital Signs Date Time Temp Pulse Resp B/P Pulse Ox O2 Delivery O2 Flow Rate FiO2 12/02/16 15:05 96 12 96 50 12/02/16 12:07 98.0 113/62 Intake and Output 12/01/16 12/01/16 12/02/16 15:00 23:00 07:00 Intake Total 350 ml 580 ml Balance 350 ml 580 ml Exam Constitutional: alert, oriented, well developed Psych: nl mood/affect, no complaints Head: atraumatic, normocephalic Eyes: EOMI, PERRL, nl conjunctiva, nl lids, nl sclera ENMT: nl external ears & nose, nl lips & teeth, nl nasal mucosa & septum Neck: non-tender, supple Respiratory: clear to auscultation, normal air movement Cardiovascular: nl pulses, regular rate and rhythm Gastrointestinal: nl liver, spleen, non-tender, soft Musculoskeletal: nl extremities to inspection, nl gait and stance Extremities: normal pulses 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: SLITTER CUT OFF OPERATOR II-XII intact, nl mental status, nl speech, nl strength Skin: nl turgor, No rash or lesions Lymph: nl lymph nodes Results Result Diagram: 12/02/16 0555 12/01/16 0549 Results 24 hrs Laboratory Tests Test 12/01/16 19:06 12/01/16 20:34 12/02/16 00:42 12/02/16 05:55 Bedside Glucose 104 98 118 White Blood Count 10.4 # Red Blood Count 3.26 L Hemoglobin 9.3 L Hematocrit 29.1 L Mean Corpuscular Volume 89.3 Mean Corpuscular Hemoglobin 28.5 L Mean Corpuscular Hemoglobin Concent 32.0 Red Cell Distribution Width 17.0 H Platelet Count 291 # Mean Platelet Volume 10.7 H Neutrophils % 66.7 Lymphocytes % 15.9 Monocytes % 12.4 H Eosinophils % 3.3 Basophils % 0.5 Nucleated Red Blood Cells % 0.2 H Neutrophils # 7.0 Lymphocytes # 1.7 Monocytes # 1.3 H Eosinophils # 0.3 Basophils # 0.1 Nucleated Red Blood Cells # 0.0 Test 12/02/16 12:23 Bedside Glucose 121 Medications Medications Current Medications Heparin Sodium (Porcine) (Heparin (5000 Units/0.5 ml)) 5,000 unit Q12 SC Last administered on 12/02/16 09:47; Admin Dose 5,000 UNIT; Start 11/15/16 at 21:00 Miscellaneous Information 1 ea NOTE XX ; Start 11/16/16 at 01:30 Glucose (Glutose) 15 gm Q15M PRN PO DECREASED GLUCOSE; Start 11/16/16 at 01:30 Glucose (Glutose) 22.5 gm Q15M PRN PO DECREASED GLUCOSE; Start 11/16/16 at 01: 30 Dextrose (D50w Syringe) 25 ml Q15M PRN IV DECREASED GLUCOSE; Start 11/16/16 at 01:30 Dextrose (D50w Syringe) 50 ml Q15M PRN IV DECREASED GLUCOSE; Start 11/16/16 at 01:30 Glucagon (Glucagen) 1 mg Q15M PRN IM DECREASED GLUCOSE; Start 11/16/16 at 01:30 Glucose (Glutose) 15 gm Q15M PRN BUCCAL DECREASED GLUCOSE; Start 11/16/16 at 01 :30 Ondansetron HCl (Zofran Inj) 4 mg Q4H PRN IV NAUSEA AND/OR VOMITING; Start 05/26 at 08:30 Insulin Aspart (Novolog Insulin Pen) NOVOLOG *MILD* ALGORI... Q6 SC Last administered on 11/23/16 12:01; Admin Dose 1 UNIT; Start 11/17/16 at 12:00 Acetaminophen (Tylenol Liquid) 650 mg Q4H PRN GTB PAIN AND OR ELEVATED TEMP Last administered on 11/25/16 09:09; Admin Dose 650 MG; Start 11/21/16 at 09:00 Lansoprazole (Prevacid) 30 mg BID@ GTB Last administered on 12/01/16 19: 02; Admin Dose 30 MG; Start 11/27/16 at 06:00 DEBRA JEAN MD December 02, 2016 15:57
[2016-12-03] VITALS (26 sets, daily range): BP systolic 127–141; BP diastolic 62–74; PULSE 84–140; RESP 17–25
[2016-12-03] MEDS: INSULIN ASPART [NOVOLOG] 3 ML PEN SC SCH ×4 (06:00→17:41)
[2016-12-03] MEDS: LANSOPRAZOLE 30 MG CAP GTB SCH ×2 (06:07→18:01)
[2016-12-03] MEDS: HEPARIN 5,000 UNIT/0.5 ML VIAL SC SCH ×2 (08:47→20:35)
--- NOTE | 2016-12-03 08:51 | CONS ---
Date/Time of Note Date/Time of Note DATE: 12/03/16 TIME: 08:49 Assessment/Plan Assessment/Plan Chief Complaint/Hosp Course Assessment 1. Patient admitted for sepsis from UTI possibly line sepsis, improved. Resolved leukocytosis 2. Chronic renal failure, on hemodialysis. 3. Chronic respiratory failure, now requiring invasive mechanical ventilation 4. History of dementia 5. History of cardiac arrhythmia. Status post pacemaker placement. 6. History of anemia, h/h stable 7. Dysphagia Plan 1. Monitor H&H and overt GIB. Consider EGD and colonoscopy if there is GIB with downtrending h/h 2. Continue tube feeding 4. Continue other supportive care Problems: Consultation Date/Type/Reason Admit Date/Time November 15, 2016 at 06:52 Initial Consult Date 11/15/16 Type of Consultation: GI Referring Provider: YAYO EDGAR DO 24 HR Interval Summary Free Text/Dictation no abdominal pain, no e/o active gib Exam/Review of Systems Vital Signs Vitals Vital Signs Date Time Temp Pulse Resp B/P Pulse Ox O2 Delivery O2 Flow Rate FiO2 12/03/16 08:46 87 12/03/16 07:58 19 96 70 12/03/16 07:35 98.5 139/72 Intake and Output 12/02/16 12/02/16 12/03/16 15:00 23:00 07:00 Intake Total 300 ml 580 ml 585 ml Output Total 3800 ml Balance -3500 ml 580 ml 585 ml Exam Constitutional: frail Head: atraumatic, normocephalic Eyes: EOMI, nl conjunctiva, nl lids, nl sclera ENMT: mucosa pink and moist, nl external ears & nose, nl lips & teeth, nl nasal mucosa & septum Neck: non-tender, supple Respiratory: clear to auscultation, normal air movement Cardiovascular: nl pulses, regular rate and rhythm Gastrointestinal: bowel sounds, non-tender, soft Results Result Diagram: 12/02/16 0555 12/01/16 0549 Results 24 hrs Laboratory Tests Test 12/02/16 12:23 12/02/16 18:02 12/02/16 23:41 12/03/16 06:05 Bedside Glucose 121 111 105 116 Medications Medications Current Medications Heparin Sodium (Porcine) (Heparin (5000 Units/0.5 ml)) 5,000 unit Q12 SC Last administered on 12/02/16 21:42; Admin Dose 5,000 UNIT; Start 11/15/16 at 21:00 Miscellaneous Information 1 ea NOTE XX ; Start 11/16/16 at 01:30 Glucose (Glutose) 15 gm Q15M PRN PO DECREASED GLUCOSE; Start 11/16/16 at 01:30 Glucose (Glutose) 22.5 gm Q15M PRN PO DECREASED GLUCOSE; Start 11/16/16 at 01: 30 Dextrose (D50w Syringe) 25 ml Q15M PRN IV DECREASED GLUCOSE; Start 11/16/16 at 01:30 Dextrose (D50w Syringe) 50 ml Q15M PRN IV DECREASED GLUCOSE; Start 11/16/16 at 01:30 Glucagon (Glucagen) 1 mg Q15M PRN IM DECREASED GLUCOSE; Start 11/16/16 at 01:30 Glucose (Glutose) 15 gm Q15M PRN BUCCAL DECREASED GLUCOSE; Start 11/16/16 at 01 :30 Ondansetron HCl (Zofran Inj) 4 mg Q4H PRN IV NAUSEA AND/OR VOMITING; Start 05/26 at 08:30 Insulin Aspart (Novolog Insulin Pen) NOVOLOG *MILD* ALGORI... Q6 SC Last administered on 11/23/16 12:01; Admin Dose 1 UNIT; Start 11/17/16 at 12:00 Acetaminophen (Tylenol Liquid) 650 mg Q4H PRN GTB PAIN AND OR ELEVATED TEMP Last administered on 11/25/16 09:09; Admin Dose 650 MG; Start 11/21/16 at 09:00 Lansoprazole (Prevacid) 30 mg BID@ GTB Last administered on 12/03/16 06: 07; Admin Dose 30 MG; Start 11/27/16 at 06:00 KIMBER KIRK MD December 03, 2016 08:51
--- NOTE | 2016-12-03 10:05 | PN ---
DATE: 12/03/2016 SUBJECTIVE: The patient is stable, had hemodialysis yesterday, tolerated it well. No other acute e vents noted overnight. OBJECTIVE: VITAL SIGNS: Blood pressure is 139/72, respirations 25, pulse 88, temperature 98.5. HEENT: Head is normocephalic. NECK: Supple. HEART: Regular rate. LUNGS: Show diminished breath sounds at the bases. ABDOMEN: Soft, nontender to palpation. No rebound or guarding. EXTREMITIES: Negative for clubbing, cyanosis. No edema. DERMATOLOGIC: No rashes. MUSCULOSKELETAL: No joint effusions. NEUROLOGIC: No change in exam. MEDICATIONS: The patient's medications have been reviewed. LABORATORY DATA: Have been reviewed. No new labs. ASSESSMENT AND PLAN: 1. Sepsis secondary to pneumonia and urinary tract infection. The patient is status post antibioti cs, currently remains afebrile. Continue to monitor. 2. Anemia of chronic disease. The patient is status post blood transfusion. Continue to monitor h emoglobin and hematocrit levels. Continue Epogen. 3. Dysphagia, status post percutaneous endoscopic gastrostomy. Continue tube feeding. 4. Acute kidney injury on top of chronic kidney disease. The patient has likely progressed to end- stage renal disease, remains dialysis dependent. Continue dialysis, anticipate next dialysis on Mon. 5. Atrial fibrillation, rate controlled. Continue medical management. 6. Mineral bone disorder. Continue to monitor calcium and phosphorus levels. 7. Congestive heart failure. Continue current treatment plan. 8. Diabetes. Continue Accu-Cheks and insulin sliding scale. 9. History of breast cancer, status post mastectomy. 10. Acute encephalopathy. Etiology is toxic metabolic. Continue to monitor. 11. Ventilator-dependent respiratory failure. Vent settings have been reviewed. ABG has been revi ewed. Continue to monitor. Follow up with pulmonary. 12. Gastrointestinal and deep venous thrombosis prophylaxis. Continue proton pump inhibitor and he asia. DISPOSITION: The patient is pending transfer to [facility] once insurance is approved. Dictated By: CHARLIE ESPINOSA/SEEMA Conf#: [id number] DID#: [id number]
--- NOTE | 2016-12-03 10:49 | CONS ---
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 hominis and Enterococcus - Hx tooth abscess treated with amoxicillin - Diarrhea; c diff negative (hx C diff 10/05/2016 & at [facility] earlier this year) - Hx candiduria (C. 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 - VDRF with tracheostomy - Hx ARDS & COPD - PAF with RVR, converted back to SR - PPM - Acute on chronic diastolic HF - PREMA on CKD requiring HD (previously on CRRT at [facility] 08/2016) - ACD - Hx DIC and thrombocytopenia - Acute toxic metabolic encephalopathy - improving - Dysphagia s/p PEG - Hx R breast CA s/p bilateral mastectomies - Hx DVT per records from [facility] - Critical care polyneuropathy confirmed by EMG at [facility] ~08/2016 - Major depression - Allergy to vancomycin and erythromycin with detail unknown - Acute respiratory distress 11/25/2016 likely d/t anxiety - improved Recommendations: - monitor off abx - probiotics - awaiting SNF placement and outpt HD arrangement Problems: Consultation Date/Type/Reason Admit Date/Time November 15, 2016 at 06:52 Initial Consult Date 11/15/16 Type of Consultation: id Referring Provider: YAYO EDGAR DO Exam/Review of Systems Vital Signs Vitals Vital Signs Date Time Temp Pulse Resp B/P Pulse Ox O2 Delivery O2 Flow Rate FiO2 12/03/16 09:49 89 20 96 70 12/03/16 07:35 98.5 139/72 Intake and Output 12/02/16 12/02/16 12/03/16 15:00 23:00 07:00 Intake Total 300 ml 580 ml 585 ml Output Total 3800 ml Balance -3500 ml 580 ml 585 ml Exam Constitutional: alert, oriented, well developed Psych: nl mood/affect, no complaints Head: atraumatic, normocephalic ENMT: nl external ears & nose, nl lips & teeth, nl nasal mucosa & septum Cardiovascular: nl pulses, regular rate and rhythm Results Result Diagram: 12/02/16 0555 12/01/16 0549 Results 24 hrs Laboratory Tests Test 12/02/16 12:23 12/02/16 18:02 12/02/16 23:41 12/03/16 06:05 Bedside Glucose 121 111 105 116 Medications Medications Current Medications Heparin Sodium (Porcine) (Heparin (5000 Units/0.5 ml)) 5,000 unit Q12 SC Last administered on 12/03/16 08:47; Admin Dose 5,000 UNIT; Start 11/15/16 at 21:00 Miscellaneous Information 1 ea NOTE XX ; Start 11/16/16 at 01:30 Glucose (Glutose) 15 gm Q15M PRN PO DECREASED GLUCOSE; Start 11/16/16 at 01:30 Glucose (Glutose) 22.5 gm Q15M PRN PO DECREASED GLUCOSE; Start 11/16/16 at 01: 30 Dextrose (D50w Syringe) 25 ml Q15M PRN IV DECREASED GLUCOSE; Start 11/16/16 at 01:30 Dextrose (D50w Syringe) 50 ml Q15M PRN IV DECREASED GLUCOSE; Start 11/16/16 at 01:30 Glucagon (Glucagen) 1 mg Q15M PRN IM DECREASED GLUCOSE; Start 11/16/16 at 01:30 Glucose (Glutose) 15 gm Q15M PRN BUCCAL DECREASED GLUCOSE; Start 11/16/16 at 01 :30 Ondansetron HCl (Zofran Inj) 4 mg Q4H PRN IV NAUSEA AND/OR VOMITING; Start 05/26 at 08:30 Insulin Aspart (Novolog Insulin Pen) NOVOLOG *MILD* ALGORI... Q6 SC Last administered on 11/23/16 12:01; Admin Dose 1 UNIT; Start 11/17/16 at 12:00 Acetaminophen (Tylenol Liquid) 650 mg Q4H PRN GTB PAIN AND OR ELEVATED TEMP Last administered on 11/25/16 09:09; Admin Dose 650 MG; Start 11/21/16 at 09:00 Lansoprazole (Prevacid) 30 mg BID@18 GTB Last administered on 12/03/16 06: 07; Admin Dose 30 MG; Start 11/27/16 at 06:00 RUBY ROY MD December 03, 2016 10:49
--- NOTE | 2016-12-03 16:39 | CONS ---
Date/Time of Note Date/Time of Note DATE: 12/03/16 TIME: 16:38 Consult Date/Type/Reason Admit Date/Time November 15, 2016 at 06:52 Initial Consult Date 11/15/16 Type of Consultation: pulm Ordering Provider: YAYO EDGAR DO Subjective No events on vent. Objective Vital Signs Date Time Temp Pulse Resp B/P Pulse Ox O2 Delivery O2 Flow Rate FiO2 12/03/16 16:16 84 12/03/16 15:56 18 94 50 12/03/16 15:30 98.5 127/69 12/03/16 15:02 Mechanical Ventilator Intake and Output 12/02/16 12/02/16 12/03/16 15:00 23:00 07:00 Intake Total 300 ml 580 ml 585 ml Output Total 3800 ml Balance -3500 ml 580 ml 585 ml Exam HEENT: Pupils equal, round, and reactive to light. Tracheostomy site clean and intact. CARDIAC: S1, S2, 1/6 systolic ejection murmur CHEST: Diminished air entry bilaterally. ABDOMEN: Mildly distended. Bowel sounds present no guarding or rebound EXTREMITIES: No cyanosis, clubbing edema +1 Results/Medications Result Diagram: 12/02/16 0555 12/01/16 0549 Results 24 hrs Laboratory Tests Test 12/02/16 18:02 12/02/16 23:41 12/03/16 06:05 12/03/16 11:25 Bedside Glucose 111 105 116 122 Medications Current Medications Heparin Sodium (Porcine) (Heparin (5000 Units/0.5 ml)) 5,000 unit Q12 SC Last administered on 12/03/16t 08:47; Admin Dose 5,000 UNIT; Start 11/15/16 at 21:00 Miscellaneous Information 1 ea NOTE XX ; Start 11/16/16 at 01:30 Glucose (Glutose) 15 gm Q15M PRN PO DECREASED GLUCOSE; Start 11/16/16 at 01:30 Glucose (Glutose) 22.5 gm Q15M PRN PO DECREASED GLUCOSE; Start 11/16/16 at 01: 30 Dextrose (D50w Syringe) 25 ml Q15M PRN IV DECREASED GLUCOSE; Start 11/16/16 at 01:30 Dextrose (D50w Syringe) 50 ml Q15M PRN IV DECREASED GLUCOSE; Start 11/16/16 at 01:30 Glucagon (Glucagen) 1 mg Q15M PRN IM DECREASED GLUCOSE; Start 11/16/16 at 01:30 Glucose (Glutose) 15 gm Q15M PRN BUCCAL DECREASED GLUCOSE; Start 11/16/16 at 01 :30 Ondansetron HCl (Zofran Inj) 4 mg Q4H PRN IV NAUSEA AND/OR VOMITING; Start 05/26 at 08:30 Insulin Aspart (Novolog Insulin Pen) NOVOLOG *MILD* ALGORI... Q6 SC Last administered on 11/23/16 12:01; Admin Dose 1 UNIT; Start 11/17/16 at 12:00 Acetaminophen (Tylenol Liquid) 650 mg Q4H PRN GTB PAIN AND OR ELEVATED TEMP Last administered on 11/25/16 09:09; Admin Dose 650 MG; Start 11/21/16 at 09:00 Lansoprazole (Prevacid) 30 mg BID@06,18 GTB Last administered on 12/03/16 06: 07; Admin Dose 30 MG; Start 11/27/16 at 06:00 Assessment/Plan Additional Assessment/Plan IMP: 1. UTI possibly line sepsis, improved. Resolved leukocytosis 2. Chronic renal failure, on hemodialysis. 3. Chronic respiratory failure, now requiring invasive mechanical ventilation 4. History of dementia 5. History of cardiac arrhythmia. Status post pacemaker placement. 6. History of anemia RECS 1. Continue mechanical ventilation, decrease FiO2 as tolerated 2. BD/CPT prn 3. Continue tube feeding 4. Am labs 5. Continue DVT and GI prophylaxi LEIDA LINARES MD December 03, 2016 16:39
--- NOTE | 2016-12-03 16:50 | CONS ---
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 hominis and Enterococcus - Hx tooth abscess treated with amoxicillin - Diarrhea; c diff negative (hx C diff 10/05/2016 & at [facility] earlier this year) - Hx candiduria (C. 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 - VDRF with tracheostomy - Hx ARDS & COPD - PAF with RVR, converted back to SR - PPM - Acute on chronic diastolic HF - PREMA on CKD requiring HD (previously on CRRT at [facility] 08/2016) - ACD - Hx DIC and thrombocytopenia - Acute toxic metabolic encephalopathy - improving - Dysphagia s/p PEG - Hx R breast CA s/p bilateral mastectomies - Hx DVT per records from [facility] - Critical care polyneuropathy confirmed by EMG at [facility] ~08/2016 - Major depression - Allergy to vancomycin and erythromycin with detail unknown - Acute respiratory distress 11/25/2016 likely d/t anxiety - improved Recommendations: - monitor off abx - probiotics - DC planning in progress: awaiting subacute placement and outpt HD arrangement Management d/w pt's family at bedside, ANAYELI Love and Dr. Rouse Problems: Consultation Date/Type/Reason Admit Date/Time November 15, 2016 at 06:52 Initial Consult Date 11/15/16 Type of Consultation: Infectious Disease Referring Provider: YAYO EDGAR DO 24 HR Interval Summary Free Text/Dictation No acute issues. ] FiO2 decreased from 70 to 50%. Still awaiting placement with outp HD per d/w nursing staff. Nods no to pain or SOB. Exam/Review of Systems Vital Signs Vitals Vital Signs Date Time Temp Pulse Resp B/P Pulse Ox O2 Delivery O2 Flow Rate FiO2 12/03/16 16:16 84 12/03/16 15:56 18 94 50 12/03/16 15:30 98.5 127/69 12/03/16 15:02 Mechanical Ventilator Intake and Output 12/02/16 12/02/16 12/03/16 15:00 23:00 07:00 Intake Total 300 ml 580 ml 585 ml Output Total 3800 ml Balance -3500 ml 580 ml 585 ml Exam Constitutional: Alert, oriented, frail, chronically debilitated Psych: other (calm) Head: atraumatic, normocephalic Eyes: nl sclera ENMT: other (declines to open mouth for examination) Neck: other (tracheostomy intact) Respiratory: diminished breath sounds Cardiovascular: regular rate and rhythm Gastrointestinal: distended (mildly), other (G tube intact with tube feeds), soft Genitourinary - Female: other (incontinent of urine; wearing diaper) Musculoskeletal: muscle weakness Extremities: No cyanosis, No edema 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: sleeping Skin: nl turgor, other (Right chest wall permacath and RUE PICC intact with no e/o infection) Results Result Diagram: 12/02/16 0555 12/01/16 0549 Results 24 hrs Laboratory Tests Test 12/02/16 18:02 12/02/16 23:41 12/03/16 06:05 12/03/16 11:25 Bedside Glucose 111 105 116 122 Medications Medications Current Medications Heparin Sodium (Porcine) (Heparin (5000 Units/0.5 ml)) 5,000 unit Q12 SC Last administered on 12/03/16t 08:47; Admin Dose 5,000 UNIT; Start 11/15/16 at 21:00 Miscellaneous Information 1 ea NOTE XX ; Start 11/16/16 at 01:30 Glucose (Glutose) 15 gm Q15M PRN PO DECREASED GLUCOSE; Start 11/16/16 at 01:30 Glucose (Glutose) 22.5 gm Q15M PRN PO DECREASED GLUCOSE; Start 11/16/16 at 01: 30 Dextrose (D50w Syringe) 25 ml Q15M PRN IV DECREASED GLUCOSE; Start 11/16/16 at 01:30 Dextrose (D50w Syringe) 50 ml Q15M PRN IV DECREASED GLUCOSE; Start 11/16/16 at 01:30 Glucagon (Glucagen) 1 mg Q15M PRN IM DECREASED GLUCOSE; Start 11/16/16 at 01:30 Glucose (Glutose) 15 gm Q15M PRN BUCCAL DECREASED GLUCOSE; Start 11/16/16 at 01 :30 Ondansetron HCl (Zofran Inj) 4 mg Q4H PRN IV NAUSEA AND/OR VOMITING; Start 05/26 at 08:30 Insulin Aspart (Novolog Insulin Pen) NOVOLOG *MILD* ALGORI... Q6 SC Last administered on 11/23/16 12:01; Admin Dose 1 UNIT; Start 11/17/16 at 12:00 Acetaminophen (Tylenol Liquid) 650 mg Q4H PRN GTB PAIN AND OR ELEVATED TEMP Last administered on 11/25/16 09:09; Admin Dose 650 MG; Start 11/21/16 at 09:00 Lansoprazole (Prevacid) 30 mg BID@,18 GTB Last administered on 12/03/16 06: 07; Admin Dose 30 MG; Start 11/27/16 at 06:00 DRAGAN NAVA NP December 03, 2016 16:49
[2016-12-03] MEDS ORDERED: VITAMIN A & D 5 GM OINT PACKET TOP ONE (23:42)
[2016-12-04] VITALS (24 sets, daily range): BP systolic 109–125; BP diastolic 57–73; PULSE 80–91; RESP 14–27
[2016-12-04] MEDS: INSULIN ASPART [NOVOLOG] 3 ML PEN SC SCH ×4 (05:00→17:56)
[2016-12-04] MEDS: LANSOPRAZOLE 30 MG CAP GTB SCH ×2 (05:00→17:57)
[2016-12-04 06:30] LABS: ADD SCAN DIFF NO
[2016-12-04 06:47] LABS: BASOPHIL # 0.1 10^3/ul (0.0-0.1); BASOPHILS % 0.5 % (0.0-2.0); EOSINOPHILS # 0.4 10^3/ul (0.0-0.5); EOSINOPHILS % 3.7 % (0.0-7.0); HEMATOCRIT 27.1 % (37.0-47.0); HEMOGLOBIN 8.5 g/dl (12.0-16.0); LYMPHOCYTES # 1.9 10^3/ul (0.8-2.9); LYMPHOCYTES % 18.9 % (15.0-51.0); MEAN CORPUSCULAR HEMOGLOBIN 28.6 pg (29.0-33.0); MEAN CORPUSCULAR HGB CONC 31.4 g/dl (32.0-37.0); MEAN CORPUSCULAR VOLUME 91.2 fl (82.0-101.0); MEAN PLATELET VOLUME 10.8 fl (7.4-10.4); MONOCYTE # 1.2 10^3/ul (0.3-0.9); MONOCYTES % 12.1 % (0.0-11.0); NEUTROPHIL # 6.3 10^3/ul (1.6-7.5); NEUTROPHILS % 63.3 % (39.0-77.0); NUCLEATED RED BLOOD CELLS # 0.1 10^3/ul (0.0-0.0); NUCLEATED RED BLOOD CELLS% 0.7 /100WBC (0.0-0.0); PLATELET COUNT 329 10^3/UL (140-415); RED BLOOD COUNT 2.97 10^6/ul (4.20-5.40); RED CELL DISTRIBUTION WIDTH 17.4 % (11.5-14.5); WHITE BLOOD COUNT 9.9 10^3/ul (4.8-10.8)
[2016-12-04 07:01] LABS: CALCIUM 8.3 mg/dl (8.4-10.2); CREATININE 2.17 mg/dl (0.44-1.00); PHOSPHORUS 3.1 mg/dl (2.5-4.9); POTASSIUM 3.6 mmol/L (3.5-5.1)
[2016-12-04] MEDS: HEPARIN 5,000 UNIT/0.5 ML VIAL SC SCH ×2 (09:10→20:42)
--- NOTE | 2016-12-04 11:26 | PN ---
DATE: 12/04/2016 SUBJECTIVE: The patient is stable. No events overnight. No fevers, chills, nausea, or vomiting. No shortness of breath. OBJECTIVE: VITAL SIGNS: Blood pressure is 125/65, respirations 23, temperature 97.5. HEENT: Head is normocephalic. NECK: Supple. HEART: Regular rate. LUNGS: Show diminished breath sounds at base. ABDOMEN: Soft, nontender to palpation without rebound or guarding. EXTREMITIES: Negative for clubbing, cyanosis, no edema. DERMATOLOGIC: No rashes. MUSCULOSKELETAL: No joint effusions. NEUROLOGIC: No change in exam. MEDICATIONS: The patient's medications have been reviewed. LABORATORY DATA: Showed sodium 142, potassium 3.6, hematocrit 35, creatinine 2.17. White count 9.9 , hemoglobin 9.5, hematocrit 27.1, platelet count 329. MEDICATIONS: The patient's medications have been reviewed. ASSESSMENT AND PLAN: 1. Sepsis secondary to pneumonia, urinary tract infection. The patient is status post antibiotics, remains afebrile. Continue to monitor. 2. Anemia of chronic disease. Continue to monitor H and H levels. Continue Epogen. 3. Dysphagia status post PEG. Continue tube feeds. 4. Acute kidney injury on top of chronic kidney disease. The patient likely has end-stage renal di sease, remains dialysis dependent. Anticipate next dialysis Monday. Monitor for any signs of recov tami. 5. Atrial fibrillation, rate controlled. Continue medical management. 6. Mineral bone disorder. Continue to monitor calcium and phosphorus levels. 7. Congestive heart failure. Continue current treatment plan. 8. Diabetes. Continue Accu-Cheks and sliding scale. 9. History of breast cancer status post mastectomy. 10. Acute encephalopathy. Etiology is toxic metabolic. Continue to monitor. 11. Ventilator dependent respiratory failure. Vent settings have been reviewed. ABG has been revi ewed. Continue to monitor. Follow up with Pulmonary. 12. Gastrointestinal and deep venous thrombosis prophylaxis. Continue proton pump inhibitor and he asia. Dictated By: CHARLIE ESPINOSA/SEEMA Conf#: [id number] DID#: [id number]
--- NOTE | 2016-12-04 13:40 | CONS ---
Date/Time of Note Date/Time of Note DATE: 12/04/16 TIME: 13:37 Consult Date/Type/Reason Admit Date/Time November 15, 2016 at 06:52 Initial Consult Date 11/15/16 Type of Consultation: Pulm Ordering Provider: YAYO EDGAR DO Subjective No events. Objective Vital Signs Date Time Temp Pulse Resp B/P Pulse Ox O2 Delivery O2 Flow Rate FiO2 12/04/16 12:07 80 12/04/16 11:13 23 98 50 12/04/16 11:02 98.0 125/60 12/03/16 15:02 Mechanical Ventilator Intake and Output 12/03/16 12/03/16 12/04/16 14:59 22:59 06:59 Intake Total 895 ml Balance 895 ml Exam HEENT: Pupils equal, round, and reactive to light. Tracheostomy site clean and intact. CARDIAC: S1, S2, 1/6 systolic ejection murmur CHEST: Coarse BS ABDOMEN: Mildly distended. Bowel sounds present no guarding or rebound EXTREMITIES: No cyanosis, clubbing edema +1 Results/Medications Result Diagram: 12/04/16 0612/04/16604 Results 24 hrs Laboratory Tests Test 12/03/16 17:38 12/04/16 00:42 12/04/16 04:56 12/04/16 06:05 Bedside Glucose 107 105 120 White Blood Count 9.9 Red Blood Count 2.97 L Hemoglobin 8.5 L Hematocrit 27.1 L Mean Corpuscular Volume 91.2 Mean Corpuscular Hemoglobin 28.6 L Mean Corpuscular Hemoglobin Concent 31.4 L Red Cell Distribution Width 17.4 H Platelet Count 329 Mean Platelet Volume 10.8 H Neutrophils % 63.3 Lymphocytes % 18.9 Monocytes % 12.1 H Eosinophils % 3.7 Basophils % 0.5 Nucleated Red Blood Cells % 0.7 H Neutrophils # 6.3 Lymphocytes # 1.9 Monocytes # 1.2 H Eosinophils # 0.4 Basophils # 0.1 Nucleated Red Blood Cells # 0.1 H Sodium Level 142 Potassium Level 3.6 Chloride Level 101 Carbon Dioxide Level 28 Anion Gap 17 H Blood Urea Nitrogen 35 H Creatinine 2.17 H Glucose Level 96 Calcium Level 8.3 L Phosphorus Level 3.1 Magnesium Level 2.0 Test 12/04/16 12:23 Bedside Glucose 100 Medications Current Medications Heparin Sodium (Porcine) (Heparin (5000 Units/0.5 ml)) 5,000 unit Q12 SC Last administered on 12/04/16 09:10; Admin Dose 5,000 UNIT; Start 11/15/16 at 21:00 Miscellaneous Information 1 ea NOTE XX ; Start 11/16/16 at 01:30 Glucose (Glutose) 15 gm Q15M PRN PO DECREASED GLUCOSE; Start 11/16/16 at 01:30 Glucose (Glutose) 22.5 gm Q15M PRN PO DECREASED GLUCOSE; Start 11/16/16 at 01: 30 Dextrose (D50w Syringe) 25 ml Q15M PRN IV DECREASED GLUCOSE; Start 11/16/16 at 01:30 Dextrose (D50w Syringe) 50 ml Q15M PRN IV DECREASED GLUCOSE; Start 11/16/16 at 01:30 Glucagon (Glucagen) 1 mg Q15M PRN IM DECREASED GLUCOSE; Start 11/16/16 at 01:30 Glucose (Glutose) 15 gm Q15M PRN BUCCAL DECREASED GLUCOSE; Start 11/16/16 at 01 :30 Ondansetron HCl (Zofran Inj) 4 mg Q4H PRN IV NAUSEA AND/OR VOMITING; Start 05/26 at 08:30 Insulin Aspart (Novolog Insulin Pen) NOVOLOG *MILD* ALGORI... Q6 SC Last administered on 11/23/16 12:01; Admin Dose 1 UNIT; Start 11/17/16 at 12:00 Acetaminophen (Tylenol Liquid) 650 mg Q4H PRN GTB PAIN AND OR ELEVATED TEMP Last administered on 11/25/16 09:09; Admin Dose 650 MG; Start 11/21/16 at 09:00 Lansoprazole (Prevacid) 30 mg BID@,18 GTB Last administered on 12/04/16 05: 00; Admin Dose 30 MG; Start 11/27/16 at 06:00 Assessment/Plan Additional Assessment/Plan Results/Medications Result Diagram: 12/02/16 0555 12/01/16 0549 [Image 1] Results 24 hrs Laboratory Tests Test 12/02/16 18:02 12/02/16 23:41 12/03/16 06:05 12/03/16 11:25 Bedside Glucose 111 105 116 122 Medications Current Medications Heparin Sodium (Porcine) (Heparin (5000 Units/0.5 ml)) 5,000 unit Q12 SC Last administered on 12/03/16 08:47; Admin Dose 5,000 UNIT; Start 11/15/16 at 21:00 Miscellaneous Information 1 ea NOTE XX ; Start 11/16/16 at 01:30 Glucose (Glutose) 15 gm Q15M PRN PO DECREASED GLUCOSE; Start 11/16/16 at 01:30 Glucose (Glutose) 22.5 gm Q15M PRN PO DECREASED GLUCOSE; Start 11/16/16 at 01: 30 Dextrose (D50w Syringe) 25 ml Q15M PRN IV DECREASED GLUCOSE; Start 11/16/16 at 01:30 Dextrose (D50w Syringe) 50 ml Q15M PRN IV DECREASED GLUCOSE; Start 11/16/16 at 01:30 Glucagon (Glucagen) 1 mg Q15M PRN IM DECREASED GLUCOSE; Start 11/16/16 at 01:30 Glucose (Glutose) 15 gm Q15M PRN BUCCAL DECREASED GLUCOSE; Start 11/16/16 at 01 :30 Ondansetron HCl (Zofran Inj) 4 mg Q4H PRN IV NAUSEA AND/OR VOMITING; Start 05/26 at 08:30 Insulin Aspart (Novolog Insulin Pen) NOVOLOG *MILD* ALGORI... Q6 SC Last administered on 11/23/16 12:01; Admin Dose 1 UNIT; Start 11/17/16 at 12:00 Acetaminophen (Tylenol Liquid) 650 mg Q4H PRN GTB PAIN AND OR ELEVATED TEMP Last administered on 11/25/16 09:09; Admin Dose 650 MG; Start 11/21/16 at 09:00 Lansoprazole (Prevacid) 30 mg BID@,18 GTB Last administered on 12/03/16 06: 07; Admin Dose 30 MG; Start 11/27/16 at 06:00 Assessment/Plan Additional Assessment/Plan IMP: 1. UTI possibly line sepsis, improved. Resolved leukocytosis 2. Chronic renal failure, on hemodialysis. 3. Chronic respiratory failure, now requiring invasive mechanical ventilation 4. History of dementia 5. History of cardiac arrhythmia. Status post pacemaker placement. 6. History of anemia RECS 1. Continue mechanical ventilation, decrease FiO2 as tolerated 2. BD/CPT prn 3. TF/free H20 4. Am labs 5. DVT and GI prophylaxi LEDIA LINARES MD December 04, 2016 13:40
--- NOTE | 2016-12-04 15:31 | CONS ---
Date/Time of Note Date/Time of Note DATE: 12/04/16 TIME: 15:28 Assessment/Plan Assessment/Plan Chief Complaint/Hosp Course Assessment 1. Patient admitted for sepsis from UTI possibly line sepsis, improved. Resolved leukocytosis 2. Chronic renal failure, on hemodialysis. 3. Chronic respiratory failure, now requiring invasive mechanical ventilation 4. History of dementia 5. History of cardiac arrhythmia. Status post pacemaker placement. 6. History of anemia, h/h stable 7. Dysphagia Plan 1. Monitor H&H and overt GIB. Consider EGD and colonoscopy if there is GIB with downtrending h/h 2. Continue tube feeding 4. Continue other supportive care 5. Above plan discussed with nurse Problems: Consultation Date/Type/Reason Admit Date/Time November 15, 2016 at 06:52 Initial Consult Date 11/15/16 Type of Consultation: GI Referring Provider: YAYO EDGAR DO 24 HR Interval Summary Free Text/Dictation family at bedside, no f, c, cp, n/v Exam/Review of Systems Vital Signs Vitals Vital Signs Date Time Temp Pulse Resp B/P Pulse Ox O2 Delivery O2 Flow Rate FiO2 12/04/16 15:25 76 22 97 50 12/04/16 15:23 98.0 121/62 12/03/16 15:02 Mechanical Ventilator Intake and Output 12/03/16 12/03/16 12/04/16 15:00 23:00 07:00 Intake Total 895 ml Balance 895 ml Exam Constitutional: frail Head: atraumatic, normocephalic Eyes: EOMI, nl conjunctiva, nl lids ENMT: mucosa pink and moist, nl external ears & nose, nl lips & teeth, nl nasal mucosa & septum Neck: non-tender, supple Respiratory: clear to auscultation, normal air movement Cardiovascular: nl pulses, regular rate and rhythm Gastrointestinal: bowel sounds, non-tender, soft Results Result Diagram: 12/04/16 0605 12/04/16 0605 Results 24 hrs Laboratory Tests Test 12/03/16 17:38 12/04/16 00:42 12/04/16 04:56 12/04/16 06:05 Bedside Glucose 107 105 120 White Blood Count 9.9 Red Blood Count 2.97 L Hemoglobin 8.5 L Hematocrit 27.1 L Mean Corpuscular Volume 91.2 Mean Corpuscular Hemoglobin 28.6 L Mean Corpuscular Hemoglobin Concent 31.4 L Red Cell Distribution Width 17.4 H Platelet Count 329 Mean Platelet Volume 10.8 H Neutrophils % 63.3 Lymphocytes % 18.9 Monocytes % 12.1 H Eosinophils % 3.7 Basophils % 0.5 Nucleated Red Blood Cells % 0.7 H Neutrophils # 6.3 Lymphocytes # 1.9 Monocytes # 1.2 H Eosinophils # 0.4 Basophils # 0.1 Nucleated Red Blood Cells # 0.1 H Sodium Level 142 Potassium Level 3.6 Chloride Level 101 Carbon Dioxide Level 28 Anion Gap 17 H Blood Urea Nitrogen 35 H Creatinine 2.17 H Glucose Level 96 Calcium Level 8.3 L Phosphorus Level 3.1 Magnesium Level 2.0 Test 12/04/16 12:23 Bedside Glucose 100 Medications Medications Current Medications Heparin Sodium (Porcine) (Heparin (5000 Units/0.5 ml)) 5,000 unit Q12 SC Last administered on 12/04/16 09:10; Admin Dose 5,000 UNIT; Start 11/15/16 at 21:00 Miscellaneous Information 1 ea NOTE XX ; Start 11/16/16 at 01:30 Glucose (Glutose) 15 gm Q15M PRN PO DECREASED GLUCOSE; Start 11/16/16 at 01:30 Glucose (Glutose) 22.5 gm Q15M PRN PO DECREASED GLUCOSE; Start 11/16/16 at 01: 30 Dextrose (D50w Syringe) 25 ml Q15M PRN IV DECREASED GLUCOSE; Start 11/16/16 at 01:30 Dextrose (D50w Syringe) 50 ml Q15M PRN IV DECREASED GLUCOSE; Start 11/16/16 at 01:30 Glucagon (Glucagen) 1 mg Q15M PRN IM DECREASED GLUCOSE; Start 11/16/16 at 01:30 Glucose (Glutose) 15 gm Q15M PRN BUCCAL DECREASED GLUCOSE; Start 11/16/16 at 01 :30 Ondansetron HCl (Zofran Inj) 4 mg Q4H PRN IV NAUSEA AND/OR VOMITING; Start 05/26 at 08:30 Insulin Aspart (Novolog Insulin Pen) NOVOLOG *MILD* ALGORI... Q6 SC Last administered on 11/23/16 12:01; Admin Dose 1 UNIT; Start 11/17/16 at 12:00 Acetaminophen (Tylenol Liquid) 650 mg Q4H PRN GTB PAIN AND OR ELEVATED TEMP Last administered on 11/25/16 09:09; Admin Dose 650 MG; Start 11/21/16 at 09:00 Lansoprazole (Prevacid) 30 mg BID@18 GTB Last administered on 12/04/16 05: 00; Admin Dose 30 MG; Start 11/27/16 at 06:00 KIMBER KIRK MD December 04, 2016 15:31
[2016-12-05] VITALS (32 sets, daily range): BP systolic 108–143; BP diastolic 62–95; PULSE 65–94; RESP 16–28
[2016-12-05] MEDS: LANSOPRAZOLE 30 MG CAP GTB SCH ×2 (05:01→18:26)
[2016-12-05] MEDS: INSULIN ASPART [NOVOLOG] 3 ML PEN SC SCH ×5 (05:01→23:27)
[2016-12-05] MEDS ORDERED: VITAMIN A & D 5 GM OINT PACKET TOP ONE (05:13)
[2016-12-05 07:28] LABS: CALCIUM 8.7 mg/dl (8.4-10.2); CREATININE 2.5 mg/dl (0.44-1.00); MAGNESIUM 2.1 mg/dl (1.7-2.5); PHOSPHORUS 3.3 mg/dl (2.5-4.9); POTASSIUM 3.6 mmol/L (3.5-5.1)
--- NOTE | 2016-12-05 09:12 | PN ---
DATE: 12/05/2016 SUBJECTIVE: The patient is stable. No events overnight. No fevers, chills, nausea, vomiting. No shortness breath. OBJECTIVE: VITAL SIGNS: Blood pressure 132/75, respiration 16, pulse 76, temperature 97.5. HEENT: Head is normocephalic. NECK: Shows trach. HEART: Regular rate. LUNGS: Show diminished breath sounds at the base. ABDOMEN: Soft, nontender to palpation without rebound or guarding. EXTREMITIES: Negative for clubbing, cyanosis. No edema. DERMATOLOGIC: No rashes. MUSCULOSKELETAL: No joint effusions. NEUROLOGIC: No change in exam. MEDICATIONS: The patient's medications have been reviewed. LABORATORY DATA: Shows sodium 141, potassium 3.6, chloride 99, BUN 53, creatinine 2.50. CBC is cur rently pending. ASSESSMENT AND PLAN: 1. Sepsis secondary to pneumonia, urinary tract infection. The patient is status post antibiotics, currently remains stable. Continue to monitor. 2. Anemia of chronic disease. Continue to monitor hemoglobin and hematocrit levels. Continue Epog en. 3. Dysphagia. Status post PEG tube, tube feeding. 4. Acute kidney injury on top of chronic kidney disease. The patient is currently dialysis depende nt. There is no evidence of recovery. Anticipate dialysis today for 3 hours, 2K bath, calcium 2.5. 5. Atrial fibrillation, rate controlled, currently in sinus rhythm. Continue medical management. 6. Mineral bone disorder. Continue to monitor calcium and phosphorus levels. 7. Congestive heart failure. Continue current treatment plan. 8. Diabetes, continue Accu-Cheks and sliding scale. 9. History of breast cancer status post mastectomy. 10. Acute encephalopathy, etiology is toxic metabolic. Continue to monitor. 11. Ventilator dependent respiratory failure. Vent settings reviewed. ABG is reviewed. Continue to monitor. Follow up with pulmonary. 12. Gastrointestinal and deep venous thrombosis prophylaxis. Continue proton pump inhibitor and he asia. Dictated By: CHARLIE BUSBY DO NR/SEEMA Conf#: [id number] DID#: [id number]
[2016-12-05] MEDS: HEPARIN 5,000 UNIT/0.5 ML VIAL SC SCH ×2 (10:15→20:53)
--- NOTE | 2016-12-05 13:26 | CONS ---
Date/Time of Note Date/Time of Note DATE: 12/05/16 TIME: 13:25 Consult Date/Type/Reason Admit Date/Time November 15, 2016 at 06:52 Initial Consult Date 11/15/16 Type of Consultation: Pulm Ordering Provider: YAYO EDGAR DO Subjective No events. Objective Vital Signs Date Time Temp Pulse Resp B/P Pulse Ox O2 Delivery O2 Flow Rate FiO2 12/05/16 12:30 84 12/05/16 11:53 98.0 18 137/66 99 12/05/16 11:20 50 12/03/16 15:02 Mechanical Ventilator Intake and Output 12/04/16 12/04/16 12/05/16 15:00 23:00 07:00 Intake Total 410 ml 620 ml 650 ml Balance 410 ml 620 ml 650 ml Exam HEENT: Pupils equal, round, and reactive to light. Tracheostomy site clean and intact. CARDIAC: S1, S2, 1/6 systolic ejection murmur CHEST: Coarse BS ABDOMEN: Mildly distended. Bowel sounds present no guarding or rebound EXTREMITIES: No cyanosis, clubbing edema +1 Results/Medications Result Diagram: 12/04/16 0605 12/05/16 0610 Results 24 hrs Laboratory Tests Test 12/04/16 17:55 12/05/16 00:41 12/05/16 04:49 12/05/16 06:10 Bedside Glucose 100 104 112 Sodium Level 141 Potassium Level 3.6 Chloride Level 99 Carbon Dioxide Level 28 Anion Gap 18 H Blood Urea Nitrogen 43 H Creatinine 2.50 H Glucose Level 87 Calcium Level 8.7 Phosphorus Level 3.3 Magnesium Level 2.1 Test 12/05/16 12:06 Bedside Glucose 146 Medications Current Medications Heparin Sodium (Porcine) (Heparin (5000 Units/0.5 ml)) 5,000 unit Q12 SC Last administered on 12/05/16t 10:15; Admin Dose 5,000 UNIT; Start 11/15/16 at 21:00 Miscellaneous Information 1 ea NOTE XX ; Start 11/16/16 at 01:30 Glucose (Glutose) 15 gm Q15M PRN PO DECREASED GLUCOSE; Start 11/16/16 at 01:30 Glucose (Glutose) 22.5 gm Q15M PRN PO DECREASED GLUCOSE; Start 11/16/16 at 01: 30 Dextrose (D50w Syringe) 25 ml Q15M PRN IV DECREASED GLUCOSE; Start 11/16/16 at 01:30 Dextrose (D50w Syringe) 50 ml Q15M PRN IV DECREASED GLUCOSE; Start 11/16/16 at 01:30 Glucagon (Glucagen) 1 mg Q15M PRN IM DECREASED GLUCOSE; Start 11/16/16 at 01:30 Glucose (Glutose) 15 gm Q15M PRN BUCCAL DECREASED GLUCOSE; Start 11/16/16 at 01 :30 Ondansetron HCl (Zofran Inj) 4 mg Q4H PRN IV NAUSEA AND/OR VOMITING; Start 05/26 at 08:30 Insulin Aspart (Novolog Insulin Pen) NOVOLOG *MILD* ALGORI... Q6 SC Last administered on 12/05/16 12:09; Admin Dose 1 UNIT; Start 11/17/16 at 12:00 Acetaminophen (Tylenol Liquid) 650 mg Q4H PRN GTB PAIN AND OR ELEVATED TEMP Last administered on 11/25/16 09:09; Admin Dose 650 MG; Start 11/21/16 at 09:00 Lansoprazole (Prevacid) 30 mg BID@06,18 GTB Last administered on 12/05/16 05: 01; Admin Dose 30 MG; Start 11/27/16 at 06:00 Assessment/Plan Additional Assessment/Plan IMP: 1. UTI possibly line sepsis, improved. Resolved leukocytosis 2. Chronic renal failure, on hemodialysis. 3. Chronic respiratory failure, now requiring invasive mechanical ventilation 4. History of dementia 5. History of cardiac arrhythmia. Status post pacemaker placement. 6. History of anemia RECS 1. Continue mechanical ventilation, decrease FiO2 as tolerated 2. BD/CPT prn 3. TF/free H20 LEIDA LINARES MD December 05, 2016 13:26
--- NOTE | 2016-12-05 13:50 | CONS ---
Date/Time of Note Date/Time of Note DATE: 12/05/16 TIME: 13:49 Assessment/Plan Assessment/Plan Chief Complaint/Hosp Course Assessment 1. Patient admitted for sepsis from UTI possibly line sepsis, improved. Resolved leukocytosis 2. Chronic renal failure, on hemodialysis. 3. Chronic respiratory failure, now requiring invasive mechanical ventilation 4. History of dementia 5. History of cardiac arrhythmia. Status post pacemaker placement. 6. History of anemia, h/h stable 7. Dysphagia Plan 1. Monitor H&H and overt GIB. Consider EGD and colonoscopy if there is GIB with downtrending h/h 2. Continue tube feeding 4. Continue other supportive care 5. Above plan discussed with nurse 6. Dr. Mauro to resume care tomorrow Problems: Consultation Date/Type/Reason Admit Date/Time November 15, 2016 at 06:52 Initial Consult Date 11/15/16 Type of Consultation: GI Referring Provider: YAYO EDGAR DO 24 HR Interval Summary Free Text/Dictation No fevers, chills, nausea, vomiting. No shortness breath. Exam/Review of Systems Vital Signs Vitals Vital Signs Date Time Temp Pulse Resp B/P Pulse Ox O2 Delivery O2 Flow Rate FiO2 12/05/16 12:30 84 12/05/16 11:53 98.0 18 137/66 99 12/05/16 11:20 50 12/03/16 15:02 Mechanical Ventilator Intake and Output 12/04/16 12/04/16 12/05/16 15:00 23:00 07:00 Intake Total 410 ml 620 ml 650 ml Balance 410 ml 620 ml 650 ml Exam Constitutional: frail Head: atraumatic, normocephalic Eyes: nl conjunctiva, nl lids, nl sclera ENMT: mucosa pink and moist, nl external ears & nose, nl lips & teeth, nl nasal mucosa & septum Neck: non-tender, supple Respiratory: clear to auscultation, normal air movement Cardiovascular: nl pulses, regular rate and rhythm Gastrointestinal: bowel sounds, non-tender, other (GT intact), soft Results Result Diagram: 12/04/16 0605 12/05/16 0610 Results 24 hrs Laboratory Tests Test 12/04/16 17:55 12/05/16 00:41 12/05/16 04:49 12/05/16 06:10 Bedside Glucose 100 104 112 Sodium Level 141 Potassium Level 3.6 Chloride Level 99 Carbon Dioxide Level 28 Anion Gap 18 H Blood Urea Nitrogen 43 H Creatinine 2.50 H Glucose Level 87 Calcium Level 8.7 Phosphorus Level 3.3 Magnesium Level 2.1 Test 12/05/16 12:06 Bedside Glucose 146 Medications Medications Current Medications Heparin Sodium (Porcine) (Heparin (5000 Units/0.5 ml)) 5,000 unit Q12 SC Last administered on 12/05/16 10:15; Admin Dose 5,000 UNIT; Start 11/15/16 at 21:00 Miscellaneous Information 1 ea NOTE XX ; Start 11/16/16 at 01:30 Glucose (Glutose) 15 gm Q15M PRN PO DECREASED GLUCOSE; Start 11/16/16 at 01:30 Glucose (Glutose) 22.5 gm Q15M PRN PO DECREASED GLUCOSE; Start 11/16/16 at 01: 30 Dextrose (D50w Syringe) 25 ml Q15M PRN IV DECREASED GLUCOSE; Start 11/16/16 at 01:30 Dextrose (D50w Syringe) 50 ml Q15M PRN IV DECREASED GLUCOSE; Start 11/16/16 at 01:30 Glucagon (Glucagen) 1 mg Q15M PRN IM DECREASED GLUCOSE; Start 11/16/16 at 01:30 Glucose (Glutose) 15 gm Q15M PRN BUCCAL DECREASED GLUCOSE; Start 11/16/16 at 01 :30 Ondansetron HCl (Zofran Inj) 4 mg Q4H PRN IV NAUSEA AND/OR VOMITING; Start 05/26 at 08:30 Insulin Aspart (Novolog Insulin Pen) NOVOLOG *MILD* ALGORI... Q6 SC Last administered on 12/05/16 12:09; Admin Dose 1 UNIT; Start 11/17/16 at 12:00 Acetaminophen (Tylenol Liquid) 650 mg Q4H PRN GTB PAIN AND OR ELEVATED TEMP Last administered on 11/25/16 09:09; Admin Dose 650 MG; Start 11/21/16 at 09:00 Lansoprazole (Prevacid) 30 mg BID@18 GTB Last administered on 12/05/16 05: 01; Admin Dose 30 MG; Start 11/27/16 at 06:00 KIMBER KIRK MD December 05, 2016 13:50
[2016-12-05] MEDS ORDERED: ALBUMIN HUMAN 25% 50 ML IV PRN (15:00)
--- NOTE | 2016-12-05 16:48 | CONS ---
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 hominis and Enterococcus - Hx tooth abscess treated with amoxicillin - Diarrhea; c diff negative (hx C diff 10/05/2016 & at [facility] earlier this year) - Hx candiduria (C. 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 - VDRF with tracheostomy - Hx ARDS & COPD - PAF with RVR, converted back to SR - PPM - Acute on chronic diastolic HF - PREMA on CKD requiring HD (previously on CRRT at [facility] 08/2016) - ACD - Hx DIC and thrombocytopenia - Acute toxic metabolic encephalopathy - improving - Dysphagia s/p PEG - Hx R breast CA s/p bilateral mastectomies - Hx DVT per records from [facility] - Critical care polyneuropathy confirmed by EMG at [facility] ~08/2016 - Major depression - Allergy to vancomycin and erythromycin with detail unknown - Acute respiratory distress 11/25/2016 likely d/t anxiety - improved Recommendations: - monitor off abx - probiotics - DC planning in progress: awaiting subacute placement and outpt HD arrangement Management d/w pt's family at bedside, RN and Dr. Rouse Consultation Date/Type/Reason Admit Date/Time November 15, 2016 at 06:52 Initial Consult Date 11/15/16 Type of Consultation: GI Referring Provider: YAYO EDGAR DO 24 HR Interval Summary Free Text/Dictation nad, awake, alert, follow simple commands,dwstaff- no new issues reported over night. Constitutional: requiring O2 Exam/Review of Systems Vital Signs Vitals Vital Signs Date Time Temp Pulse Resp B/P Pulse Ox O2 Delivery O2 Flow Rate FiO2 12/05/16 16:21 94 12/05/16 16:13 98.0 18 108/62 99 12/05/16 15:05 50 12/03/16 15:02 Mechanical Ventilator Intake and Output 12/04/16 12/04/16 12/05/16 15:00 23:00 07:00 Intake Total 410 ml 620 ml 650 ml Balance 410 ml 620 ml 650 ml Exam Constitutional: alert Head: atraumatic Eyes: EOMI, nl sclera ENMT: nl external ears & nose Neck: non-tender (trach intact), other Respiratory: diminished breath sounds, normal air movement Cardiovascular: nl pulses, regular rate and rhythm Gastrointestinal: non-tender, other (gt intact), soft Musculoskeletal: muscle weakness Extremities: normal pulses 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: confused Skin: ecchymosis, other Lymph: nontender Results Result Diagram: 12/04/16 0605 12/05/16 0610 Results 24 hrs Laboratory Tests Test 12/04/16 17:55 12/05/16 00:41 12/05/16 04:49 12/05/16 06:10 Bedside Glucose 100 104 112 Sodium Level 141 Potassium Level 3.6 Chloride Level 99 Carbon Dioxide Level 28 Anion Gap 18 H Blood Urea Nitrogen 43 H Creatinine 2.50 H Glucose Level 87 Calcium Level 8.7 Phosphorus Level 3.3 Magnesium Level 2.1 Test 12/05/16 12:06 Bedside Glucose 146 Medications Medications Current Medications Heparin Sodium (Porcine) (Heparin (5000 Units/0.5 ml)) 5,000 unit Q12 SC Last administered on 12/05/16t 10:15; Admin Dose 5,000 UNIT; Start 11/15/16 at 21:00 Miscellaneous Information 1 ea NOTE XX ; Start 11/16/16 at 01:30 Glucose (Glutose) 15 gm Q15M PRN PO DECREASED GLUCOSE; Start 11/16/16 at 01:30 Glucose (Glutose) 22.5 gm Q15M PRN PO DECREASED GLUCOSE; Start 11/16/16 at 01: 30 Dextrose (D50w Syringe) 25 ml Q15M PRN IV DECREASED GLUCOSE; Start 11/16/16 at 01:30 Dextrose (D50w Syringe) 50 ml Q15M PRN IV DECREASED GLUCOSE; Start 11/16/16 at 01:30 Glucagon (Glucagen) 1 mg Q15M PRN IM DECREASED GLUCOSE; Start 11/16/16 at 01:30 Glucose (Glutose) 15 gm Q15M PRN BUCCAL DECREASED GLUCOSE; Start 11/16/16 at 01 :30 Ondansetron HCl (Zofran Inj) 4 mg Q4H PRN IV NAUSEA AND/OR VOMITING; Start 05/26 at 08:30 Insulin Aspart (Novolog Insulin Pen) NOVOLOG *MILD* ALGORI... Q6 SC Last administered on 12/05/16 12:09; Admin Dose 1 UNIT; Start 11/17/16 at 12:00 Acetaminophen (Tylenol Liquid) 650 mg Q4H PRN GTB PAIN AND OR ELEVATED TEMP Last administered on 11/25/16 09:09; Admin Dose 650 MG; Start 11/21/16 at 09:00 Lansoprazole (Prevacid) 30 mg BID@,18 GTB Last administered on 12/05/16 05: 01; Admin Dose 30 MG; Start 11/27/16 at 06:00 JAMMIE TORRES December 05, 2016 16:48
[2016-12-05] MEDS: IPRATROPIUM (HFA) 12.9 GM INHALER INH PRN (19:54)
[2016-12-05] MEDS: LEVALBUTEROL (HFA) 15 GM INHALER INH PRN (19:54)
[2016-12-06] VITALS (23 sets, daily range): BP systolic 95–150; BP diastolic 56–78; PULSE 82–100; RESP 18–32
[2016-12-06] MEDS ORDERED: VITAMIN A & D 5 GM OINT PACKET TOP ONE (04:31)
[2016-12-06] MEDS: LANSOPRAZOLE 30 MG CAP GTB SCH ×2 (05:30→17:30)
[2016-12-06] MEDS: INSULIN ASPART [NOVOLOG] 3 ML PEN SC SCH ×3 (05:30→17:29)
[2016-12-06 06:14] LABS: ADD SCAN DIFF NO
[2016-12-06 06:19] LABS: BASOPHILS % 0.5 % (0.0-2.0); EOSINOPHILS # 0.3 10^3/ul (0.0-0.5); EOSINOPHILS % 3.6 % (0.0-7.0); HEMATOCRIT 30.2 % (37.0-47.0); HEMOGLOBIN 9.2 g/dl (12.0-16.0); LYMPHOCYTES # 1.5 10^3/ul (0.8-2.9); LYMPHOCYTES % 18.3 % (15.0-51.0); MEAN CORPUSCULAR HGB CONC 30.5 g/dl (32.0-37.0); MEAN CORPUSCULAR VOLUME 92.1 fl (82.0-101.0); MEAN PLATELET VOLUME 10.9 fl (7.4-10.4); MONOCYTES % 11.6 % (0.0-11.0); NEUTROPHIL # 5.4 10^3/ul (1.6-7.5); NUCLEATED RED BLOOD CELLS # 0.1 10^3/ul (0.0-0.0); NUCLEATED RED BLOOD CELLS% 0.8 /100WBC (0.0-0.0); PLATELET COUNT 404 10^3/UL (140-415); RED BLOOD COUNT 3.28 10^6/ul (4.20-5.40); RED CELL DISTRIBUTION WIDTH 18.2 % (11.5-14.5); WHITE BLOOD COUNT 8.3 10^3/ul (4.8-10.8)
[2016-12-06 06:29] LABS: CREATININE 1.73 mg/dl (0.44-1.00)
[2016-12-06 06:34] LABS: POTASSIUM 2.7 mmol/L (3.5-5.1)
[2016-12-06] MEDS ORDERED: POTASSIUM CHLORIDE 20 MEQ POWDER FOR ORAL SOLN GTB ONE (07:00)
[2016-12-06] MEDS: IPRATROPIUM (HFA) 12.9 GM INHALER INH PRN ×2 (07:51→17:12)
[2016-12-06] MEDS: LEVALBUTEROL (HFA) 15 GM INHALER INH PRN ×2 (07:52→17:12)
[2016-12-06] MEDS ORDERED: POTASSIUM CHLORIDE 250 ML IVPB ONE (08:00)
--- NOTE | 2016-12-06 09:34 | PN ---
DATE: 12/06/2016 SUBJECTIVE: The patient had hemodialysis yesterday, tolerated it well. No other acute events noted overnight. No hemoptysis, hematemesis, or hematochezia. OBJECTIVE: VITAL SIGNS: Blood pressure is 137/65, respirations 18, pulse 83, temperature 98.9. HEENT: Head is normocephalic. NECK: Supple. HEART: Regular rate. LUNGS: Show diminished breath sounds at the base. ABDOMEN: Soft, nontender to palpation. Positive PEG. EXTREMITIES: Negative for clubbing, cyanosis, no edema. DERMATOLOGIC: No rashes. MUSCULOSKELETAL: No joint effusions. NEUROLOGIC: No change in exam. MEDICATIONS: The patient's medications have been reviewed. LABORATORY DATA: Shows a white count 5.3, hemoglobin 9.2, hematocrit 30.2, platelet count is 404. Sodium 140, potassium 3.7, chloride 103, BUN 20, creatinine 1.73. ASSESSMENT AND PLAN: 1. Sepsis secondary to pneumonia, urinary tract infection. The patient is completing antibiotic co urse, remains stable, continue to monitor. 2. Hypokalemia. Will replete with potassium chloride 60 mEq p.o. x1, repeat a BMP after 4 to 6 malika rs. We will continue to monitor closely. 3. Anemia of chronic disease. Continue to monitor H and H levels. Continue Epogen. 4. Ventilator-dependent respiratory failure. Vent settings have been reviewed. ABG has been revie wed. Continue to monitor. 5. Dysphagia. Status post percutaneous endoscopic gastrostomy, continue tube feeding. 6. Acute kidney injury on top of chronic kidney disease. The patient is currently dialysis depende nt, no evidence of recovery. Anticipate dialysis tomorrow for 3 hours on a 3 K bath, calcium 2.5. 7. Atrial fibrillation, currently rate controlled. Continue medical management. 8. Mineral bone disorder. Continue to monitor calcium and phosphorus levels. 9. Congestive heart failure. Continue current treatment plan. 10. Diabetes, continue Accu-Cheks and insulin sliding scale. 11. History of breast cancer status post mastectomy. 12. Acute encephalopathy. Etiology is toxic metabolic. Continue to monitor. 13. Gastrointestinal and deep venous thrombosis prophylaxis. Continue PPI and heparin. DISPOSITION: The patient is pending transfer to subacute facility and outpatient hemodialysis once insurance has been approved. Dictated By: CHARLIE ESPINOSA/SEEMA Conf#: [id number] [facility]#: [id number]
--- NOTE | 2016-12-06 09:44 | PN ---
DATE: 12/01/2016 CARDIOLOGY FOLLOWUP SUBJECTIVE: Discussed with the staff. Rhythm strip was reviewed. The patient with episodes of tac hycardia, SVT. Appeared to have had PMT (pacemaker-mediated tachycardia). No reported chest pain o r pressure. MEDICATIONS: Reviewed. PHYSICAL EXAMINATION: VITAL SIGNS: Temperature 98, heart rate of 94, has been as high as 130, respiratory rate of 26, blo od pressure 113/60, oxygen saturation 96%. HEENT: Normocephalic, atraumatic. NECK: Status post tracheostomy. CARDIOVASCULAR: Regular rate and rhythm. PULMONARY: No wheezes anteriorly, rhonchi at the bases. GASTROINTESTINAL: Soft, nontender. EXTREMITIES: Positive diffuse edema. NEUROLOGIC: Awake. PSYCHIATRIC: Appears to be calm. LABORATORY DATA: WBC of 10.4, hemoglobin 9.2, platelets 291. Sodium 137, potassium 3.6, BUN of 29, creatinine 1.56, glucose of 99. ASSESSMENT AND PLAN: 1. Sick sinus syndrome, status post permanent pacemaker. 2. Hypoxemic and hypercapnic respiratory failure, status post tracheostomy. 3. Paroxysmal atrial fibrillation, currently in sinus rhythm. 4. Sepsis, pneumonia, possible aspiration. 5. Anemia, status post transfusion. 6. Lactic acidosis. 7. Renal failure, on dialysis. 8. Diabetes. 9. History of breast carcinoma. RECOMMENDATIONS: I have discussed with multiple different pacemaker reps and it appears that franchesca glynn has a [employer] [place] pacemaker. We will have it interrogated and make adjustments, so that increase in PVARP if needed to avoid pacemaker-mediated tachycardia. We will continue with the respiratory care . Monitor on telemetry. Dictated By: KIAH RAINES/SEEMA Conf#: [id number] DID#: [id number]
[2016-12-06] MEDS: HEPARIN 5,000 UNIT/0.5 ML VIAL SC SCH ×2 (10:34→22:13)
--- NOTE | 2016-12-06 10:45 | CONS ---
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 hominis and Enterococcus - Hx tooth abscess treated with amoxicillin - Diarrhea; c diff negative (hx C diff 10/05/2016 & at [facility] earlier this year) - Hx candiduria (C. 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 hominis and Enterococcus - Hx tooth abscess treated with amoxicillin - Diarrhea; c diff negative (hx C diff 10/05/2016 & at [facility] earlier this year) - Hx candiduria (C. 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 - VDRF with tracheostomy - Hx ARDS & COPD - PAF with RVR, converted back to SR - PPM - Acute on chronic diastolic HF - PREMA on CKD requiring HD (previously on CRRT at [facility] 08/2016) - ACD - Hx DIC and thrombocytopenia - Acute toxic metabolic encephalopathy - improving - Dysphagia s/p PEG - Hx R breast CA s/p bilateral mastectomies - Hx DVT per records from [facility] - Critical care polyneuropathy confirmed by EMG at [facility] ~08/2016 - Major depression - Allergy to vancomycin and erythromycin with detail unknown - Acute respiratory distress 11/25/2016 likely d/t anxiety - improved Recommendations: - monitor off abx - probiotics Problems: Consultation Date/Type/Reason Admit Date/Time November 15, 2016 at 06:52 Initial Consult Date 11/15/16 Type of Consultation: id Referring Provider: YAYO EDGAR DO 24 HR Interval Summary Free Text/Dictation late entry for 12.04.16 Exam/Review of Systems Vital Signs Vitals Vital Signs Date Time Temp Pulse Resp B/P Pulse Ox O2 Delivery O2 Flow Rate FiO2 12/06/16 10:15 50 12/06/16 09:23 95 32 93 12/06/16 07:59 97.5 125/60 12/03/16 15:02 Mechanical Ventilator Intake and Output 12/05/16 12/05/16 12/06/16 15:00 23:00 07:00 Intake Total 300 ml 700 ml Output Total 3800 ml Balance -3500 ml 700 ml Exam Constitutional: non-verbal Psych: no complaints Head: atraumatic, normocephalic Respiratory: diminished breath sounds Cardiovascular: regular rate and rhythm Gastrointestinal: soft Results Result Diagram: 12/06/16 0515 12/06/16 0515 Results 24 hrs Laboratory Tests Test 12/05/16 12:06 12/05/16 17:34 12/05/16 23:24 12/06/16 05:15 Bedside Glucose 146 113 128 White Blood Count 8.3 Red Blood Count 3.28 L Hemoglobin 9.2 L Hematocrit 30.2 L Mean Corpuscular Volume 92.1 Mean Corpuscular Hemoglobin 28.0 L Mean Corpuscular Hemoglobin Concent 30.5 L Red Cell Distribution Width 18.2 H Platelet Count 404 # Mean Platelet Volume 10.9 H Neutrophils % 65.0 Lymphocytes % 18.3 Monocytes % 11.6 H Eosinophils % 3.6 Basophils % 0.5 Nucleated Red Blood Cells % 0.8 H Neutrophils # 5.4 Lymphocytes # 1.5 Monocytes # 1.0 H Eosinophils # 0.3 Basophils # 0.0 Nucleated Red Blood Cells # 0.1 H Sodium Level 140 Potassium Level 2.7 *L Chloride Level 103 Carbon Dioxide Level 29 Anion Gap 11 # Blood Urea Nitrogen 28 #H Creatinine 1.73 H Glucose Level 119 Calcium Level 9.0 Test 12/06/16 05:30 Bedside Glucose 117 Medications Medications Current Medications Heparin Sodium (Porcine) (Heparin (5000 Units/0.5 ml)) 5,000 unit Q12 SC Last administered on 12/06/16t 10:34; Admin Dose 5,000 UNIT; Start 11/15/16 at 21:00 Miscellaneous Information 1 ea NOTE XX ; Start 11/16/16 at 01:30 Glucose (Glutose) 15 gm Q15M PRN PO DECREASED GLUCOSE; Start 11/16/16 at 01:30 Glucose (Glutose) 22.5 gm Q15M PRN PO DECREASED GLUCOSE; Start 11/16/16 at 01: 30 Dextrose (D50w Syringe) 25 ml Q15M PRN IV DECREASED GLUCOSE; Start 11/16/16 at 01:30 Dextrose (D50w Syringe) 50 ml Q15M PRN IV DECREASED GLUCOSE; Start 11/16/16 at 01:30 Glucagon (Glucagen) 1 mg Q15M PRN IM DECREASED GLUCOSE; Start 11/16/16 at 01:30 Glucose (Glutose) 15 gm Q15M PRN BUCCAL DECREASED GLUCOSE; Start 11/16/16 at 01 :30 Ondansetron HCl (Zofran Inj) 4 mg Q4H PRN IV NAUSEA AND/OR VOMITING; Start 05/26 at 08:30 Insulin Aspart (Novolog Insulin Pen) NOVOLOG *MILD* ALGORI... Q6 SC Last administered on 12/05/16 12:09; Admin Dose 1 UNIT; Start 11/17/16 at 12:00 Acetaminophen (Tylenol Liquid) 650 mg Q4H PRN GTB PAIN AND OR ELEVATED TEMP Last administered on 11/25/16 09:09; Admin Dose 650 MG; Start 11/21/16 at 09:00 Lansoprazole (Prevacid) 30 mg BID@ GTB Last administered on 12/06/16 05: 30; Admin Dose 30 MG; Start 11/27/16 at 06:00 RUBY ROY MD December 06, 2016 10:45
--- NOTE | 2016-12-06 14:13 | CONS ---
Date/Time of Note Date/Time of Note DATE: 12/06/16 TIME: 14:12 Consult Date/Type/Reason Admit Date/Time November 15, 2016 at 06:52 Initial Consult Date 11/15/16 Type of Consultation: Pulmonary Ordering Provider: YAYO EDGAR DO Subjective Patient remains stable no new events Objective Vital Signs Date Time Temp Pulse Resp B/P Pulse Ox O2 Delivery O2 Flow Rate FiO2 12/06/16 13:24 86 24 97 50 12/06/16 11:21 98.2 150/78 12/03/16 15:02 Mechanical Ventilator Intake and Output 12/05/16 12/05/16 12/06/16 15:00 23:00 07:00 Intake Total 300 ml 700 ml Output Total 3800 ml Balance -3500 ml 700 ml Exam PHYSICAL EXAMINATION GENERAL: Elderly lady comfortable at rest on mechanical ventilation VITAL SIGNS: see below. HEENT: Pupils equal, round, and reactive to light. Tracheostomy site clean and intact. CARDIAC: S1, S2, 1/6 systolic ejection murmur CHEST: Diminished air entry bilaterally. ABDOMEN: Mildly distended. Bowel sounds present no guarding or rebound EXTREMITIES: No cyanosis, clubbing edema +1 NEUROLOGIC: Generalized weakness Results/Medications Result Diagram: 12/06/16 0515 12/06/16 0515 Results 24 hrs Laboratory Tests Test 12/05/16 17:34 12/05/16 23:24 12/06/16 05:15 12/06/16 05:30 Bedside Glucose 113 128 117 White Blood Count 8.3 Red Blood Count 3.28 L Hemoglobin 9.2 L Hematocrit 30.2 L Mean Corpuscular Volume 92.1 Mean Corpuscular Hemoglobin 28.0 L Mean Corpuscular Hemoglobin Concent 30.5 L Red Cell Distribution Width 18.2 H Platelet Count 404 # Mean Platelet Volume 10.9 H Neutrophils % 65.0 Lymphocytes % 18.3 Monocytes % 11.6 H Eosinophils % 3.6 Basophils % 0.5 Nucleated Red Blood Cells % 0.8 H Neutrophils # 5.4 Lymphocytes # 1.5 Monocytes # 1.0 H Eosinophils # 0.3 Basophils # 0.0 Nucleated Red Blood Cells # 0.1 H Sodium Level 140 Potassium Level 2.7 *L Chloride Level 103 Carbon Dioxide Level 29 Anion Gap 11 # Blood Urea Nitrogen 28 #H Creatinine 1.73 H Glucose Level 119 Calcium Level 9.0 Test 5/30/17 12:33 Bedside Glucose 117 Medications Current Medications Heparin Sodium (Porcine) (Heparin (5000 Units/0.5 ml)) 5,000 unit Q12 SC Last administered on 12/06/16 10:34; Admin Dose 5,000 UNIT; Start 11/15/16 at 21:00 Miscellaneous Information 1 ea NOTE XX ; Start 11/16/16 at 01:30 Glucose (Glutose) 15 gm Q15M PRN PO DECREASED GLUCOSE; Start 11/16/16 at 01:30 Glucose (Glutose) 22.5 gm Q15M PRN PO DECREASED GLUCOSE; Start 11/16/16 at 01: 30 Dextrose (D50w Syringe) 25 ml Q15M PRN IV DECREASED GLUCOSE; Start 11/16/16 at 01:30 Dextrose (D50w Syringe) 50 ml Q15M PRN IV DECREASED GLUCOSE; Start 11/16/16 at 01:30 Glucagon (Glucagen) 1 mg Q15M PRN IM DECREASED GLUCOSE; Start 11/16/16 at 01:30 Glucose (Glutose) 15 gm Q15M PRN BUCCAL DECREASED GLUCOSE; Start 11/16/16 at 01 :30 Ondansetron HCl (Zofran Inj) 4 mg Q4H PRN IV NAUSEA AND/OR VOMITING; Start 05/26 at 08:30 Insulin Aspart (Novolog Insulin Pen) NOVOLOG *MILD* ALGORI... Q6 SC Last administered on 12/05/16 12:09; Admin Dose 1 UNIT; Start 11/17/16 at 12:00 Acetaminophen (Tylenol Liquid) 650 mg Q4H PRN GTB PAIN AND OR ELEVATED TEMP Last administered on 11/25/16 09:09; Admin Dose 650 MG; Start 11/21/16 at 09:00 Lansoprazole (Prevacid) 30 mg BID@ GTB Last administered on 12/06/16 05: 30; Admin Dose 30 MG; Start 11/27/16 at 06:00 Assessment/Plan Chief Complaint/Hosp Course IMP: 1. UTI possibly line sepsis, improved. Resolved leukocytosis 2. Chronic renal failure, on hemodialysis. 3. Chronic respiratory failure, now requiring invasive mechanical ventilation 4. History of dementia 5. History of cardiac arrhythmia. Status post pacemaker placement. 6. History of anemia RECS 1. Continue mechanical ventilation, decrease FiO2 as tolerated 2. BD/CPT prn 3. TF/free H20 4. Replace potassium Problems: RHONDA BUENROSTRO MD, FCCP December 06, 2016 14:13
--- NOTE | 2016-12-06 14:14 | CONS ---
Date/Time of Note Date/Time of Note DATE: 12/06/16 TIME: 14:10 Assessment/Plan Assessment/Plan Chief Complaint/Hosp Course - s/p septic shock due to UTI +/- aspiration - resolved - s/p UTI due to VRE - Hx bacteremia due to S. hominis and Enterococcus - Hx tooth abscess treated with amoxicillin - Diarrhea;C diff negative (hx C diff 10/05/2016 & at [facility] earlier this year) - Hx candiduria (C. 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 - VDRF with tracheostomy - Hx ARDS & COPD - PAF with RVR, converted back to SR - PPM - Acute on chronic diastolic HF - PREMA on CKD requiring HD (previously on CRRT at [facility] 08/2016) - ACD - Hx DIC and thrombocytopenia - Acute toxic metabolic encephalopathy - improved a little - Dysphagia s/p PEG - Hx R breast CA s/p bilateral mastectomies - Hx DVT per records from [facility] - Critical care polyneuropathy confirmed by EMG at [facility] ~08/2016 - Major depression - Allergy to vancomycin and erythromycin with detail unknown - Acute respiratory distress 11/25/2016 likely d/t anxiety - improved recommendations: - repeat cárdenas cultures if temp >100.4F - continue to monitor Pt off antibiotics Problems: Consultation Date/Type/Reason Admit Date/Time November 15, 2016 at 06:52 Initial Consult Date 11/15/16 Type of Consultation: ID Referring Provider: YAYO EDGAR DO 24 HR Interval Summary Subjective hx not possible: pt non-verbal Exam/Review of Systems Vital Signs Vitals Vital Signs Date Time Temp Pulse Resp B/P Pulse Ox O2 Delivery O2 Flow Rate FiO2 12/06/16 13:24 86 24 97 50 12/06/16 11:21 98.2 150/78 12/03/16 15:02 Mechanical Ventilator Intake and Output 12/05/16 12/05/16 12/06/16 15:00 23:00 07:00 Intake Total 300 ml 700 ml Output Total 3800 ml Balance -3500 ml 700 ml Exam Constitutional: frail, non-verbal Psych: confusion Head: atraumatic, normocephalic Eyes: nl conjunctiva, nl lids ENMT: nl external ears & nose, nl nasal mucosa & septum Neck: other (trach) Respiratory: diminished breath sounds Cardiovascular: nl pulses, regular rate and rhythm Gastrointestinal: non-tender, other (GT), soft Musculoskeletal: No swelling Extremities: No edema 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: lethargic Skin: ecchymosis, other (s/p b/l mastectomy) Results Result Diagram: 12/06/16 0515 12/06/16 0515 Results 24 hrs Laboratory Tests Test 12/05/16 17:34 12/05/16 23:24 12/06/16 05:15 12/06/16 05:30 Bedside Glucose 113 128 117 White Blood Count 8.3 Red Blood Count 3.28 L Hemoglobin 9.2 L Hematocrit 30.2 L Mean Corpuscular Volume 92.1 Mean Corpuscular Hemoglobin 28.0 L Mean Corpuscular Hemoglobin Concent 30.5 L Red Cell Distribution Width 18.2 H Platelet Count 404 # Mean Platelet Volume 10.9 H Neutrophils % 65.0 Lymphocytes % 18.3 Monocytes % 11.6 H Eosinophils % 3.6 Basophils % 0.5 Nucleated Red Blood Cells % 0.8 H Neutrophils # 5.4 Lymphocytes # 1.5 Monocytes # 1.0 H Eosinophils # 0.3 Basophils # 0.0 Nucleated Red Blood Cells # 0.1 H Sodium Level 140 Potassium Level 2.7 *L Chloride Level 103 Carbon Dioxide Level 29 Anion Gap 11 # Blood Urea Nitrogen 28 #H Creatinine 1.73 H Glucose Level 119 Calcium Level 9.0 Test 12/06/16 12:33 Bedside Glucose 117 Medications Medications Current Medications Heparin Sodium (Porcine) (Heparin (5000 Units/0.5 ml)) 5,000 unit Q12 SC Last administered on 12/06/16t 10:34; Admin Dose 5,000 UNIT; Start 11/15/16 at 21:00 Miscellaneous Information 1 ea NOTE XX ; Start 11/16/16 at 01:30 Glucose (Glutose) 15 gm Q15M PRN PO DECREASED GLUCOSE; Start 11/16/16 at 01:30 Glucose (Glutose) 22.5 gm Q15M PRN PO DECREASED GLUCOSE; Start 11/16/16 at 01: 30 Dextrose (D50w Syringe) 25 ml Q15M PRN IV DECREASED GLUCOSE; Start 11/16/16 at 01:30 Dextrose (D50w Syringe) 50 ml Q15M PRN IV DECREASED GLUCOSE; Start 11/16/16 at 01:30 Glucagon (Glucagen) 1 mg Q15M PRN IM DECREASED GLUCOSE; Start 11/16/16 at 01:30 Glucose (Glutose) 15 gm Q15M PRN BUCCAL DECREASED GLUCOSE; Start 11/16/16 at 01 :30 Ondansetron HCl (Zofran Inj) 4 mg Q4H PRN IV NAUSEA AND/OR VOMITING; Start 05/26 at 08:30 Insulin Aspart (Novolog Insulin Pen) NOVOLOG *MILD* ALGORI... Q6 SC Last administered on 12/05/16 12:09; Admin Dose 1 UNIT; Start 11/17/16 at 12:00 Acetaminophen (Tylenol Liquid) 650 mg Q4H PRN GTB PAIN AND OR ELEVATED TEMP Last administered on 11/25/16 09:09; Admin Dose 650 MG; Start 11/21/16 at 09:00 Lansoprazole (Prevacid) 30 mg BID@18 GTB Last administered on 12/06/16 05: 30; Admin Dose 30 MG; Start 11/27/16 at 06:00 JAMIE CASTANO M.D. December 06, 2016 14:14
[2016-12-06 15:17] LABS: POTASSIUM 3.8 mmol/L (3.5-5.1)
[2016-12-06 15:20] LABS: CREATININE 1.95 mg/dl (0.44-1.00)
--- NOTE | 2016-12-06 17:47 | PN ---
DATE: 12/06/2016 CARDIOLOGY FOLLOWUP SUBJECTIVE: Discussed with the staff. Discussed with the daughter. Rhythm strip was reviewed. Th e patient remains in sinus rhythm. No episodes of atrial fibrillation. She has been more fatigued and tired according to the daughter today. No reported chest pain or pressure. MEDICATIONS: Reviewed. PHYSICAL EXAMINATION: VITAL SIGNS: Temperature 98.6, heart rate of 83, blood pressure 117/58, respiratory rate of 18, sat urating 94%. HEENT: Normocephalic, atraumatic. NECK: Status post tracheostomy, on the vent. CARDIOVASCULAR: Regular rate and rhythm with grade 1 systolic murmur. PULMONARY: With no wheezes heard anteriorly. Minimal rhonchi at the bases. GASTROINTESTINAL: Soft, nontender. EXTREMITIES: Trivial edema. NEUROLOGIC: Awake and alert. PSYCHIATRIC: Appeared to be calm. LABORATORY DATA: WBC of 8.3, hemoglobin 9.2, platelets of 404. Sodium 144, potassium 3.8, BUN of 33, creatinine 1.95, glucose 129. ASSESSMENT AND PLAN: 1. Hypoxemic, hypercapnic respiratory failure, status post tracheostomy, vent-dependent. 2. Sick sinus syndrome with history of permanent pacemaker. 3. History of paroxysmal atrial fibrillation, currently is sinus. 4. Sepsis, pneumonia, currently improved. 5. Anemia, status post transfusion. 6. Status post lactic acidosis. 7. Renal failure, on dialysis. 8. . 9. Diabetes. 10. History of breast carcinoma. RECOMMENDATIONS: We will continue with the current cardiac care. Respiratory care will be continue d. Dialysis as per renal. Vent support will be continued. Dictated By: KIAH RAINES/SEEMA Conf#: [id number] DID#: [id number]
--- NOTE | 2016-12-06 21:03 | CONS ---
Date/Time of Note Date/Time of Note DATE: 12/06/16 TIME: 21:02 Assessment/Plan Assessment/Plan Additional Assessment/Plan Assessment 1. Patient admitted for sepsis from UTI possibly line sepsis, improved. Resolved leukocytosis 2. Chronic renal failure, on hemodialysis. 3. Chronic respiratory failure, now requiring invasive mechanical ventilation 4. History of dementia 5. History of cardiac arrhythmia. Status post pacemaker placement. 6. History of anemia, h/h stable 7. Dysphagia Plan 1. Monitor H&H and overt GIB. Consider EGD and colonoscopy if there is GIB with downtrending h/h 2. Continue tube feeding 4. Continue other supportive care 5. Above plan discussed with nurse Consultation Date/Type/Reason Admit Date/Time November 15, 2016 at 06:52 Initial Consult Date 11/15/16 Type of Consultation: ID Referring Provider: YAYO EDGAR DO 24 HR Interval Summary Constitutional: no complaints Exam/Review of Systems Vital Signs Vitals Vital Signs Date Time Temp Pulse Resp B/P Pulse Ox O2 Delivery O2 Flow Rate FiO2 12/06/16 20:05 97.7 85 21 95/56 95 12/06/16 19:59 60 12/03/16 15:02 Mechanical Ventilator Intake and Output 12/05/16 12/05/16 12/06/16 15:00 23:00 07:00 Intake Total 300 ml 700 ml Output Total 3800 ml Balance -3500 ml 700 ml Exam Constitutional: alert, oriented, well developed Psych: nl mood/affect, no complaints Head: atraumatic, normocephalic Eyes: EOMI, PERRL, nl conjunctiva, nl lids, nl sclera ENMT: nl external ears & nose, nl lips & teeth, nl nasal mucosa & septum Neck: non-tender, supple Respiratory: clear to auscultation, normal air movement Cardiovascular: nl pulses, regular rate and rhythm Gastrointestinal: nl liver, spleen, non-tender, soft Musculoskeletal: nl extremities to inspection, nl gait and stance Extremities: normal pulses 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: 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, nl mental status, nl speech, nl strength Skin: nl turgor, No rash or lesions Lymph: nl lymph nodes Results Result Diagram: 12/06/16 0515 12/06/16 1400 Results 24 hrs Laboratory Tests Test 12/05/16 23:24 12/06/16 05:15 12/06/16 05:30 12/06/16 12:33 Bedside Glucose 128 117 117 White Blood Count 8.3 Red Blood Count 3.28 L Hemoglobin 9.2 L Hematocrit 30.2 L Mean Corpuscular Volume 92.1 Mean Corpuscular Hemoglobin 28.0 L Mean Corpuscular Hemoglobin Concent 30.5 L Red Cell Distribution Width 18.2 H Platelet Count 404 # Mean Platelet Volume 10.9 H Neutrophils % 65.0 Lymphocytes % 18.3 Monocytes % 11.6 H Eosinophils % 3.6 Basophils % 0.5 Nucleated Red Blood Cells % 0.8 H Neutrophils # 5.4 Lymphocytes # 1.5 Monocytes # 1.0 H Eosinophils # 0.3 Basophils # 0.0 Nucleated Red Blood Cells # 0.1 H Sodium Level 140 Potassium Level 2.7 *L Chloride Level 103 Carbon Dioxide Level 29 Anion Gap 11 # Blood Urea Nitrogen 28 #H Creatinine 1.73 H Glucose Level 119 Calcium Level 9.0 Test 12/06/16 14:00 12/06/16 17:28 Sodium Level 144 Potassium Level 3.8 Chloride Level 110 Carbon Dioxide Level 30 Anion Gap 8 Blood Urea Nitrogen 33 H Creatinine 1.95 H Glucose Level 129 Calcium Level 9.0 Bedside Glucose 120 Medications Medications Current Medications Heparin Sodium (Porcine) (Heparin (5000 Units/0.5 ml)) 5,000 unit Q12 SC Last administered on 12/06/16t 10:34; Admin Dose 5,000 UNIT; Start 11/15/16 at 21:00 Miscellaneous Information 1 ea NOTE XX ; Start 11/16/16 at 01:30 Glucose (Glutose) 15 gm Q15M PRN PO DECREASED GLUCOSE; Start 11/16/16 at 01:30 Glucose (Glutose) 22.5 gm Q15M PRN PO DECREASED GLUCOSE; Start 11/16/16 at 01: 30 Dextrose (D50w Syringe) 25 ml Q15M PRN IV DECREASED GLUCOSE; Start 11/16/16 at 01:30 Dextrose (D50w Syringe) 50 ml Q15M PRN IV DECREASED GLUCOSE; Start 11/16/16 at 01:30 Glucagon (Glucagen) 1 mg Q15M PRN IM DECREASED GLUCOSE; Start 11/16/16 at 01:30 Glucose (Glutose) 15 gm Q15M PRN BUCCAL DECREASED GLUCOSE; Start 11/16/16 at 01 :30 Ondansetron HCl (Zofran Inj) 4 mg Q4H PRN IV NAUSEA AND/OR VOMITING Last administered on 12/06/16 15:35; Admin Dose 4 MG; Start 11/17/16 at 08:30 Insulin Aspart (Novolog Insulin Pen) NOVOLOG *MILD* ALGORI... Q6 SC Last administered on 12/05/16 12:09; Admin Dose 1 UNIT; Start 11/17/16 at 12:00 Acetaminophen (Tylenol Liquid) 650 mg Q4H PRN GTB PAIN AND OR ELEVATED TEMP Last administered on 11/25/16 09:09; Admin Dose 650 MG; Start 11/21/16 at 09:00 Lansoprazole (Prevacid) 30 mg BID@,18 GTB Last administered on 12/06/16 17: 30; Admin Dose 30 MG; Start 11/27/16 at 06:00 DEBRA JEAN MD December 06, 2016 21:03
[2016-12-07] VITALS (31 sets, daily range): BP systolic 92–132; BP diastolic 53–81; PULSE 78–89; RESP 17–23
[2016-12-07] MEDS: IPRATROPIUM (HFA) 12.9 GM INHALER INH PRN (05:56)
[2016-12-07] MEDS: LEVALBUTEROL (HFA) 15 GM INHALER INH PRN (05:56)
[2016-12-07] MEDS: INSULIN ASPART [NOVOLOG] 3 ML PEN SC SCH ×4 (06:00→17:10)
[2016-12-07] MEDS: LANSOPRAZOLE 30 MG CAP GTB SCH ×2 (06:59→17:13)
[2016-12-07] MEDS: HEPARIN 5,000 UNIT/0.5 ML VIAL SC SCH ×2 (08:43→21:57)
--- NOTE | 2016-12-07 10:13 | PN ---
DATE: 12/07/2016 CARDIOLOGY FOLLOWUP SUBJECTIVE: Discussed with the staff. Rhythm strip reviewed. No new cardiac event. No chest pain or pressure. The patient states that she has no , but could not describe . She still re nadia in sinus rhythm with intermittent demand pacemaker. Otherwise no evidence of PMT or atrial fi brillation noted. MEDICATIONS: Reviewed as per medication reconciliation, was personally reviewed. PHYSICAL EXAMINATION: VITAL SIGNS: Temperature 97.9, heart rate of 74, blood pressure 104/55, respiratory rate of 18, sat urating 95%. HEENT: Normocephalic, atraumatic. Elderly female. NECK: Status post trach on the vent. CARDIOVASCULAR: Regular rate and rhythm, systolic murmur. PULMONARY: With no wheezes anteriorly. Mild rhonchi. GASTROINTESTINAL: Soft, nontender. EXTREMITIES: No significant edema. NEUROLOGIC: Awake and alert. PSYCHIATRIC: Appeared to be calm. LABORATORY DATA: WBC of 8.3, hemoglobin 9.2, platelets of 404. Sodium 144, potassium 3.8, BUN of 3 3, creatinine 1.95, glucose 129. ASSESSMENT AND PLAN: 1. Hypoxemic, hypercapnic respiratory failure, status post tracheostomy. 2. Paroxysmal atrial fibrillation, remains in sinus rhythm, status post permanent pacemaker. 3. Status post shock and sepsis. 4. Multiple infections including pneumonia and possible urinary tract infection. 5. Anemia, status post multiple transfusions. 6. Renal failure, on dialysis. 7. Diabetes. 8. History of breast carcinoma, status post mastectomy. RECOMMENDATIONS: The pacemaker was interrogated and adjustment was made on 12/02/2016 already. The patient currently remains stable from an arrhythmia standpoint. Vent support will be continued. [facility] care will be continued. Dictated By: KIAH GARCIA MD AV/SEEMA Conf#: [id number] DID#: [id number] CC: CHARLIE BUSBY DO;*EndCC*
--- NOTE | 2016-12-07 11:14 | PN ---
DATE: 12/07/2016 SUBJECTIVE: The patient is stable, no acute events overnight. The patient is scheduled for hemodia lysis this morning. No other events noted. No hemoptysis, hematemesis or hematochezia. OBJECTIVE: VITAL SIGNS: Blood pressure is 104/55, respirations 18, pulse 74, temperature 97.9. HEENT: Head is normocephalic. NECK: Supple. HEART: Regular rate. LUNGS: Show diminished breath sounds at the base. ABDOMEN: Soft, nontender to palpation without rebound or guarding. EXTREMITIES: Negative for clubbing, cyanosis, no edema. DERMATOLOGIC: No rashes. MUSCULOSKELETAL: No joint effusions. NEUROLOGIC: No change in exam. MEDICATIONS: The patient's medications have been reviewed. LABORATORY DATA: Reviewed. No new labs. ASSESSMENT AND PLAN: 1. Sepsis, secondary to pneumonia, urinary tract infection. Patient completing antibiotic course. Continue to monitor. 2. Hypokalemia, improved. Continue dialysis on a 4 potassium bath. 3. Anemia of chronic disease. Will monitor hemoglobin and hematocrit levels. Continue Epogen. 4. Ventilator dependent respiratory failure. Vent settings have been reviewed. ABG has been revie wed. Continue to monitor. Follow up with pulmonary. 5. Dysphagia. Status post PEG tube, tube feed. 6. Acute kidney injury on top of chronic kidney disease. The patient is currently dialysis depende nt and there is no evidence of recovery. Plan for dialysis today for 3 hours, 4K bath, calcium 2.5. 7. Atrial fibrillation, rate controlled. Continue medical management. 8. Mineral bone disorder. Continue to monitor calcium and phosphorus levels. 9. Congestive heart failure. Continue current treatment plan. 10. Diabetes, continue Accu-Cheks and sliding scale. 11. History of breast cancer status post mastectomy. 12. Encephalopathy, acute etiology toxic metabolic. Patient's mental status improved. 13. GI and DVT prophylaxis. Continue PPI and heparin. Dictated By: CHARLIE ESPINOSA/SEEMA Conf#: [id number] DID#: [id number]
--- NOTE | 2016-12-07 15:34 | CONS ---
Date/Time of Note Date/Time of Note DATE: 12/07/16 TIME: 15:34 Consult Date/Type/Reason Admit Date/Time November 15, 2016 at 06:52 Initial Consult Date 11/15/16 Type of Consultation: Pulmonary Ordering Provider: YAYO EDGAR DO Subjective No new events patient remains stable Objective Vital Signs Date Time Temp Pulse Resp B/P Pulse Ox O2 Delivery O2 Flow Rate FiO2 12/07/16 15:12 97.5 72 18 120/62 96 12/07/16 15:09 45 12/03/16 15:02 Mechanical Ventilator Exam PHYSICAL EXAMINATION GENERAL: Elderly lady comfortable at rest on mechanical ventilation VITAL SIGNS: see below. HEENT: Pupils equal, round, and reactive to light. Tracheostomy site clean and intact. CARDIAC: S1, S2, 1/6 systolic ejection murmur CHEST: Diminished air entry bilaterally. ABDOMEN: Mildly distended. Bowel sounds present no guarding or rebound EXTREMITIES: No cyanosis, clubbing edema +1 NEUROLOGIC: Generalized weakness Results/Medications Result Diagram: 12/06/16 0515 12/06/16 1400 Results 24 hrs Laboratory Tests Test 12/06/16 17:28 12/07/16 00:20 12/07/16 05:45 12/07/16 11:53 Bedside Glucose 120 124 119 124 Medications Current Medications Heparin Sodium (Porcine) (Heparin (5000 Units/0.5 ml)) 5,000 unit Q12 SC Last administered on 12/07/16t 08:43; Admin Dose 5,000 UNIT; Start 11/15/16 at 21:00 Miscellaneous Information 1 ea NOTE XX ; Start 11/16/16 at 01:30 Glucose (Glutose) 15 gm Q15M PRN PO DECREASED GLUCOSE; Start 11/16/16 at 01:30 Glucose (Glutose) 22.5 gm Q15M PRN PO DECREASED GLUCOSE; Start 11/16/16 at 01: 30 Dextrose (D50w Syringe) 25 ml Q15M PRN IV DECREASED GLUCOSE; Start 11/16/16 at 01:30 Dextrose (D50w Syringe) 50 ml Q15M PRN IV DECREASED GLUCOSE; Start 11/16/16 at 01:30 Glucagon (Glucagen) 1 mg Q15M PRN IM DECREASED GLUCOSE; Start 11/16/16 at 01:30 Glucose (Glutose) 15 gm Q15M PRN BUCCAL DECREASED GLUCOSE; Start 11/16/16 at 01 :30 Ondansetron HCl (Zofran Inj) 4 mg Q4H PRN IV NAUSEA AND/OR VOMITING Last administered on 12/06/16 15:35; Admin Dose 4 MG; Start 11/17/16 at 08:30 Insulin Aspart (Novolog Insulin Pen) NOVOLOG *MILD* ALGORI... Q6 SC Last administered on 12/05/16 12:09; Admin Dose 1 UNIT; Start 11/17/16 at 12:00 Acetaminophen (Tylenol Liquid) 650 mg Q4H PRN GTB PAIN AND OR ELEVATED TEMP Last administered on 11/25/16 09:09; Admin Dose 650 MG; Start 11/21/16 at 09:00 Lansoprazole (Prevacid) 30 mg BID@06,18 GTB Last administered on 12/07/16 06: 59; Admin Dose 30 MG; Start 11/27/16 at 06:00 Assessment/Plan Chief Complaint/Hosp Course IMP: 1. UTI possibly line sepsis, improved. Resolved leukocytosis 2. Chronic renal failure, on hemodialysis. 3. Chronic respiratory failure, now requiring invasive mechanical ventilation 4. History of dementia 5. History of cardiac arrhythmia. Status post pacemaker placement. 6. History of anemia RECS 1. Continue mechanical ventilation, decrease FiO2 as tolerated 2. BD/CPT prn 3. TF/free H20 Discharge planning Problems: RHONDA BU[facility]ROSTRO MD, [facility] December 07, 2016 15:34
[2016-12-07] MEDS: EPOETIN 4000 UNITS/1 ML INJ (ESRD) SC SCH (17:12)
--- NOTE | 2016-12-07 20:17 | CONS ---
Date/Time of Note Date/Time of Note DATE: 12/07/16 TIME: 20:17 Assessment/Plan Assessment/Plan Additional Assessment/Plan Assessment 1. Patient admitted for sepsis from UTI possibly line sepsis, improved. Resolved leukocytosis 2. Chronic renal failure, on hemodialysis. 3. Chronic respiratory failure, now requiring invasive mechanical ventilation 4. History of dementia 5. History of cardiac arrhythmia. Status post pacemaker placement. 6. History of anemia, h/h stable 7. Dysphagia 8. Occult GI bleeding, discussed with the son and the patient there is no evidence of acute GI bleeding and hematocrit is stable Plan 1. Monitor H&H and overt GIB. Consider EGD and colonoscopy if there is GIB with downtrending h/h 2. Continue tube feeding 4. Continue other supportive care 5. Above plan discussed with nurse Consultation Date/Type/Reason Admit Date/Time November 15, 2016 at 06:52 Initial Consult Date 11/15/16 Type of Consultation: Pulmonary Referring Provider: YAYO EDGAR DO 24 HR Interval Summary Constitutional: improved Exam/Review of Systems Vital Signs Vitals Vital Signs Date Time Temp Pulse Resp B/P Pulse Ox O2 Delivery O2 Flow Rate FiO2 12/07/16 17:03 92 21 95 40 12/07/16 15:12 97.5 120/62 12/03/16 15:02 Mechanical Ventilator Intake and Output 12/06/16 12/06/16 12/07/16 15:00 23:00 07:00 Intake Total 800 ml Balance 800 ml Exam Constitutional: alert, oriented, well developed Psych: nl mood/affect, no complaints Head: atraumatic, normocephalic Eyes: EOMI, PERRL, nl conjunctiva, nl lids, nl sclera ENMT: nl external ears & nose, nl lips & teeth, nl nasal mucosa & septum Neck: non-tender, supple Respiratory: clear to auscultation, normal air movement Cardiovascular: nl pulses, regular rate and rhythm Gastrointestinal: nl liver, spleen, non-tender, soft Musculoskeletal: nl extremities to inspection, nl gait and stance Extremities: normal pulses 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: TRACER CLERK II-XII intact, nl mental status, nl speech, nl strength Skin: nl turgor, No rash or lesions Lymph: nl lymph nodes Results Result Diagram: 12/06/16 0515 12/06/16 1400 Results 24 hrs Laboratory Tests Test 12/07/16 00:20 12/07/16 05:45 12/07/16 11:53 12/07/16 17:07 Bedside Glucose 124 119 124 105 Medications Medications Current Medications Heparin Sodium (Porcine) (Heparin (5000 Units/0.5 ml)) 5,000 unit Q12 SC Last administered on 12/07/16 08:43; Admin Dose 5,000 UNIT; Start 11/15/16 at 21:00 Miscellaneous Information 1 ea NOTE XX ; Start 11/16/16 at 01:30 Glucose (Glutose) 15 gm Q15M PRN PO DECREASED GLUCOSE; Start 11/16/16 at 01:30 Glucose (Glutose) 22.5 gm Q15M PRN PO DECREASED GLUCOSE; Start 11/16/16 at 01: 30 Dextrose (D50w Syringe) 25 ml Q15M PRN IV DECREASED GLUCOSE; Start 11/16/16 at 01:30 Dextrose (D50w Syringe) 50 ml Q15M PRN IV DECREASED GLUCOSE; Start 11/16/16 at 01:30 Glucagon (Glucagen) 1 mg Q15M PRN IM DECREASED GLUCOSE; Start 11/16/16 at 01:30 Glucose (Glutose) 15 gm Q15M PRN BUCCAL DECREASED GLUCOSE; Start 11/16/16 at 01 :30 Ondansetron HCl (Zofran Inj) 4 mg Q4H PRN IV NAUSEA AND/OR VOMITING Last administered on 12/06/16 15:35; Admin Dose 4 MG; Start 11/17/16 at 08:30 Insulin Aspart (Novolog Insulin Pen) NOVOLOG *MILD* ALGORI... Q6 SC Last administered on 12/05/16 12:09; Admin Dose 1 UNIT; Start 11/17/16 at 12:00 Acetaminophen (Tylenol Liquid) 650 mg Q4H PRN GTB PAIN AND OR ELEVATED TEMP Last administered on 11/25/16 09:09; Admin Dose 650 MG; Start 11/21/16 at 09:00 Lansoprazole (Prevacid) 30 mg BID@18 GTB Last administered on 12/07/16 17: 13; Admin Dose 30 MG; Start 11/27/16 at 06:00 DEBRA JEAN MD December 07, 2016 20:17
[2016-12-08] VITALS (24 sets, daily range): BP systolic 95–107; BP diastolic 52–62; PULSE 78–88; RESP 13–23
[2016-12-08] MEDS: LANSOPRAZOLE 30 MG CAP GTB SCH ×2 (05:09→17:21)
[2016-12-08] MEDS: INSULIN ASPART [NOVOLOG] 3 ML PEN SC SCH ×4 (05:10→17:23)
[2016-12-08 06:21] LABS: ADD SCAN DIFF NO
[2016-12-08 06:22] LABS: BASOPHIL # 0.1 10^3/ul (0.0-0.1); BASOPHILS % 0.5 % (0.0-2.0); EOSINOPHILS # 0.5 10^3/ul (0.0-0.5); EOSINOPHILS % 5.2 % (0.0-7.0); HEMATOCRIT 32.7 % (37.0-47.0); HEMOGLOBIN 9.8 g/dl (12.0-16.0); LYMPHOCYTES # 1.9 10^3/ul (0.8-2.9); LYMPHOCYTES % 20.9 % (15.0-51.0); MEAN CORPUSCULAR HEMOGLOBIN 28.4 pg (29.0-33.0); MEAN CORPUSCULAR VOLUME 94.8 fl (82.0-101.0); MEAN PLATELET VOLUME 10.6 fl (7.4-10.4); MONOCYTE # 1.1 10^3/ul (0.3-0.9); MONOCYTES % 11.3 % (0.0-11.0); NEUTROPHIL # 5.7 10^3/ul (1.6-7.5); NEUTROPHILS % 60.9 % (39.0-77.0); NUCLEATED RED BLOOD CELLS # 0.1 10^3/ul (0.0-0.0); NUCLEATED RED BLOOD CELLS% 0.5 /100WBC (0.0-0.0); PLATELET COUNT 403 10^3/UL (140-415); RED BLOOD COUNT 3.45 10^6/ul (4.20-5.40); RED CELL DISTRIBUTION WIDTH 19.2 % (11.5-14.5); WHITE BLOOD COUNT 9.3 10^3/ul (4.8-10.8)
[2016-12-08 06:38] LABS: CALCIUM 9.5 mg/dl (8.4-10.2); CREATININE 2.14 mg/dl (0.44-1.00); MAGNESIUM 2.1 mg/dl (1.7-2.5); PHOSPHORUS 2.3 mg/dl (2.5-4.9); POTASSIUM 3.6 mmol/L (3.5-5.1)
[2016-12-08] MEDS: HEPARIN 5,000 UNIT/0.5 ML VIAL SC SCH ×2 (08:19→22:11)
[2016-12-08] MEDS: NEUTRA-PHOS 250 MG PACKET GTB SCH ×2 (10:31→21:50)
--- NOTE | 2016-12-08 10:36 | PN ---
DATE: 12/08/2016 SUBJECTIVE: The patient had hemodialysis yesterday, tolerated well. No other events noted. No hem optysis, hematemesis or hematochezia. OBJECTIVE: VITAL SIGNS: Blood pressure 130/62, respirations 21, pulse 88, temperature 98.1. HEENT: Head is normocephalic. NECK: Shows trach. HEART: Regular rate. LUNGS: Show diminished breath sounds at the base. ABDOMEN: Soft, nontender to palpation without rebound or guarding. EXTREMITIES: Negative for clubbing, cyanosis, no edema. DERMATOLOGIC: No rashes. MUSCULOSKELETAL: No joint effusions. NEUROLOGIC: No change in exam. MEDICATIONS: The patient's medications have been reviewed. LABORATORY DATA: Shows a sodium 145, potassium 2.6, chloride 110, BUN 32, creatinine 2.14. White c ount 9.3, hemoglobin 9.8, hematocrit 32.7, platelet count is 403. ASSESSMENT AND PLAN: 1. Sepsis secondary to pneumonia and urinary tract infection. The patient has completed antibiotic course. 2. Hypokalemia, improved. Continue to monitor. 3. Anemia. Continue to monitor hemoglobin and hematocrit levels. Continue Epogen. 4. Ventilatory dependent respiratory failure. Vent settings have been reviewed. ABG has been revi ewed. Continue to monitor. 5. Dysphagia status post PEG tube, tube feed. 6. Acute kidney injury on top of chronic kidney disease. The patient is currently dialysis dependen t. There is no evidence of recovery, continue dialysis 3 times weekly. 7. Atrial fibrillation, rate controlled. Continue current medical management. 8. Mineral bone disorder. Continue to monitor calcium and phosphorus levels. 9. Congestive heart failure. Continue current treatment plan. 10. Diabetes, continue Accu-Cheks and sliding scale. 11. History of breast cancer status post mastectomy. 12. Encephalopathy, etiology toxic metabolic. Continue to monitor. 13. Gastrointestinal and deep venous thrombosis prophylaxis. Continue proton pump inhibitor and he [place]. Dictated By: CHARLIE ESPINOSA/SEEMA Conf#: [id number] DID#: [id number]
--- NOTE | 2016-12-08 12:18 | CONS ---
Date/Time of Note Date/Time of Note DATE: 12/08/16 TIME: 12:18 Consult Date/Type/Reason Admit Date/Time November 15, 2016 at 06:52 Initial Consult Date 11/15/16 Type of Consultation: Pulmonary Ordering Provider: YAYO EDGAR DO Subjective Comfortable. Objective Vital Signs Date Time Temp Pulse Resp B/P Pulse Ox O2 Delivery O2 Flow Rate FiO2 12/08/16 11:43 98.6 81 13 95/52 100 12/08/16 11:06 40 Intake and Output 12/07/16 12/07/16 12/08/16 15:00 23:00 07:00 Intake Total 500 ml 900 ml 800 ml Output Total 3500 ml Balance -3000 ml 900 ml 800 ml Exam PHYSICAL EXAMINATION GENERAL: Elderly lady comfortable at rest on mechanical ventilation VITAL SIGNS: see below. HEENT: Pupils equal, round, and reactive to light. Tracheostomy site clean and intact. CARDIAC: S1, S2, 1/6 systolic ejection murmur CHEST: Diminished air entry bilaterally. ABDOMEN: Mildly distended. Bowel sounds present no guarding or rebound EXTREMITIES: No cyanosis, clubbing edema +1 NEUROLOGIC: Generalized weakness Results/Medications Result Diagram: 12/08/16 0605 12/08/16 0605 Results 24 hrs Laboratory Tests Test 12/07/16 17:07 12/08/16 00:01 12/08/16 05:07 12/08/16 06:05 Bedside Glucose 105 136 134 White Blood Count 9.3 Red Blood Count 3.45 L Hemoglobin 9.8 L Hematocrit 32.7 L Mean Corpuscular Volume 94.8 Mean Corpuscular Hemoglobin 28.4 L Mean Corpuscular Hemoglobin Concent 30.0 L Red Cell Distribution Width 19.2 H Platelet Count 403 Mean Platelet Volume 10.6 H Neutrophils % 60.9 Lymphocytes % 20.9 Monocytes % 11.3 H Eosinophils % 5.2 Basophils % 0.5 Nucleated Red Blood Cells % 0.5 H Neutrophils # 5.7 Lymphocytes # 1.9 Monocytes # 1.1 H Eosinophils # 0.5 Basophils # 0.1 Nucleated Red Blood Cells # 0.1 H Sodium Level 145 H Potassium Level 3.6 Chloride Level 110 Carbon Dioxide Level 28 Anion Gap 11 Blood Urea Nitrogen 32 H Creatinine 2.14 H Glucose Level 137 Calcium Level 9.5 Phosphorus Level 2.3 L Magnesium Level 2.1 Test 12/08/16 12:09 Bedside Glucose 139 Medications Current Medications Heparin Sodium (Porcine) (Heparin (5000 Units/0.5 ml)) 5,000 unit Q12 SC Last administered on 12/08/16 08:19; Admin Dose 5,000 UNIT; Start 11/15/16 at 21:00 Miscellaneous Information 1 ea NOTE XX ; Start 11/16/16 at 01:30 Glucose (Glutose) 15 gm Q15M PRN PO DECREASED GLUCOSE; Start 11/16/16 at 01:30 Glucose (Glutose) 22.5 gm Q15M PRN PO DECREASED GLUCOSE; Start 11/16/16 at 01: 30 Dextrose (D50w Syringe) 25 ml Q15M PRN IV DECREASED GLUCOSE; Start 11/16/16 at 01:30 Dextrose (D50w Syringe) 50 ml Q15M PRN IV DECREASED GLUCOSE; Start 11/16/16 at 01:30 Glucagon (Glucagen) 1 mg Q15M PRN IM DECREASED GLUCOSE; Start 11/16/16 at 01:30 Glucose (Glutose) 15 gm Q15M PRN BUCCAL DECREASED GLUCOSE; Start 11/16/16 at 01 :30 Ondansetron HCl (Zofran Inj) 4 mg Q4H PRN IV NAUSEA AND/OR VOMITING Last administered on 12/06/16 15:35; Admin Dose 4 MG; Start 11/17/16 at 08:30 Insulin Aspart (Novolog Insulin Pen) NOVOLOG *MILD* ALGORI... Q6 SC Last administered on 12/05/16 12:09; Admin Dose 1 UNIT; Start 11/17/16 at 12:00 Acetaminophen (Tylenol Liquid) 650 mg Q4H PRN GTB PAIN AND OR ELEVATED TEMP Last administered on 11/25/16 09:09; Admin Dose 650 MG; Start 11/21/16 at 09:00 Lansoprazole (Prevacid) 30 mg BID@18 GTB Last administered on 12/08/16 05:09 ; Admin Dose 30 MG; Start 11/27/16 at 06:00 Sodium Phosphate (Neutra-Phos) 250 mg BID GTB Last administered on 12/08/16 10: 31; Admin Dose 250 MG; Start 12/08/16 at 10:00 Assessment/Plan Chief Complaint/Hosp Course IMP: 1. UTI possibly line sepsis, improved. Resolved leukocytosis 2. Chronic renal failure, on hemodialysis. 3. Chronic respiratory failure, now requiring invasive mechanical ventilation 4. History of dementia 5. History of cardiac arrhythmia. Status post pacemaker placement. 6. History of anemia RECS 1. Continue mechanical ventilation, decrease FiO2 as tolerated 2. BD/CPT prn 3. TF/free H20 Discharge planning Problems: RHONDA BU[facility]ROSTRO MD, [facility] Dec 08, 2016 12:18
--- NOTE | 2016-12-08 20:35 | CONS ---
Date/Time of Note Date/Time of Note DATE: 12/08/16 TIME: 20:35 Assessment/Plan Assessment/Plan Additional Assessment/Plan Assessment 1. Patient admitted for sepsis from UTI possibly line sepsis, improved. Resolved leukocytosis 2. Chronic renal failure, on hemodialysis. 3. Chronic respiratory failure, now requiring invasive mechanical ventilation 4. History of dementia 5. History of cardiac arrhythmia. Status post pacemaker placement. 6. History of anemia, h/h stable, patient is on Epogen 7. Dysphagia 8. Occult GI bleeding, discussed with the son and the patient there is no evidence of acute GI bleeding and hematocrit is stable Plan 1. Monitor H&H and overt GIB. Consider EGD and colonoscopy if there is GIB with downtrending h/h 2. Continue tube feeding 4. Continue other supportive care Consultation Date/Type/Reason Admit Date/Time November 15, 2016 at 06:52 Initial Consult Date 11/15/16 Type of Consultation: Pulmonary Referring Provider: YAYO EDGAR DO 24 HR Interval Summary Constitutional: no complaints Exam/Review of Systems Vital Signs Vitals Vital Signs Date Time Temp Pulse Resp B/P Pulse Ox O2 Delivery O2 Flow Rate FiO2 12/08/16 20:27 81 12/08/16 19:50 98.3 19 104/59 93 12/08/16 17:12 40 Intake and Output 12/07/16 12/07/16 12/08/16 15:00 23:00 07:00 Intake Total 500 ml 900 ml 800 ml Output Total 3500 ml Balance -3000 ml 900 ml 800 ml Exam Constitutional: alert, oriented, well developed Psych: nl mood/affect, no complaints Head: atraumatic, normocephalic Eyes: EOMI, PERRL, nl conjunctiva, nl lids, nl sclera ENMT: nl external ears & nose, nl lips & teeth, nl nasal mucosa & septum Neck: non-tender, supple Respiratory: clear to auscultation, normal air movement Cardiovascular: nl pulses, regular rate and rhythm Gastrointestinal: nl liver, spleen, non-tender, soft Musculoskeletal: nl extremities to inspection, nl gait and stance Extremities: normal pulses 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: BRAIDED BAND ASSEMBLER II-XII intact, nl mental status, nl speech, nl strength Skin: nl turgor, No rash or lesions Lymph: nl lymph nodes Results Result Diagram: 12/08/1660412/08/16604 Results 24 hrs Laboratory Tests Test 12/08/16 00:01 12/08/16 05:07 12/08/16 06:05 12/08/16 12:09 Bedside Glucose 136 134 139 White Blood Count 9.3 Red Blood Count 3.45 L Hemoglobin 9.8 L Hematocrit 32.7 L Mean Corpuscular Volume 94.8 Mean Corpuscular Hemoglobin 28.4 L Mean Corpuscular Hemoglobin Concent 30.0 L Red Cell Distribution Width 19.2 H Platelet Count 403 Mean Platelet Volume 10.6 H Neutrophils % 60.9 Lymphocytes % 20.9 Monocytes % 11.3 H Eosinophils % 5.2 Basophils % 0.5 Nucleated Red Blood Cells % 0.5 H Neutrophils # 5.7 Lymphocytes # 1.9 Monocytes # 1.1 H Eosinophils # 0.5 Basophils # 0.1 Nucleated Red Blood Cells # 0.1 H Sodium Level 145 H Potassium Level 3.6 Chloride Level 110 Carbon Dioxide Level 28 Anion Gap 11 Blood Urea Nitrogen 32 H Creatinine 2.14 H Glucose Level 137 Calcium Level 9.5 Phosphorus Level 2.3 L Magnesium Level 2.1 Test 12/08/16 16:47 Bedside Glucose 147 Medications Medications Current Medications Heparin Sodium (Porcine) (Heparin (5000 Units/0.5 ml)) 5,000 unit Q12 SC Last administered on 12/08/16t 08:19; Admin Dose 5,000 UNIT; Start 11/15/16 at 21:00 Miscellaneous Information 1 ea NOTE XX ; Start 11/16/16 at 01:30 Glucose (Glutose) 15 gm Q15M PRN PO DECREASED GLUCOSE; Start 11/16/16 at 01:30 Glucose (Glutose) 22.5 gm Q15M PRN PO DECREASED GLUCOSE; Start 11/16/16 at 01: 30 Dextrose (D50w Syringe) 25 ml Q15M PRN IV DECREASED GLUCOSE; Start 11/16/16 at 01:30 Dextrose (D50w Syringe) 50 ml Q15M PRN IV DECREASED GLUCOSE; Start 11/16/16 at 01:30 Glucagon (Glucagen) 1 mg Q15M PRN IM DECREASED GLUCOSE; Start 11/16/16 at 01:30 Glucose (Glutose) 15 gm Q15M PRN BUCCAL DECREASED GLUCOSE; Start 11/16/16 at 01 :30 Ondansetron HCl (Zofran Inj) 4 mg Q4H PRN IV NAUSEA AND/OR VOMITING Last administered on 12/06/16 15:35; Admin Dose 4 MG; Start 11/17/16 at 08:30 Insulin Aspart (Novolog Insulin Pen) NOVOLOG *MILD* ALGORI... Q6 SC Last administered on 12/08/16 17:23; Admin Dose 1 UNIT; Start 11/17/16 at 12:00 Acetaminophen (Tylenol Liquid) 650 mg Q4H PRN GTB PAIN AND OR ELEVATED TEMP Last administered on 11/25/16 09:09; Admin Dose 650 MG; Start 11/21/16 at 09:00 Lansoprazole (Prevacid) 30 mg BID@,18 GTB Last administered on 12/08/16 17:21 ; Admin Dose 30 MG; Start 11/27/16 at 06:00 Sodium Phosphate (Neutra-Phos) 250 mg BID GTB Last administered on 12/08/16 10: 31; Admin Dose 250 MG; Start 12/08/16 at 10:00 DEBRA JEAN MD Dec 08, 2016 20:35
[2016-12-09] VITALS (30 sets, daily range): BP systolic 102–144; BP diastolic 51–71; PULSE 78–96; RESP 18–28
[2016-12-09] MEDS: IPRATROPIUM (HFA) 12.9 GM INHALER INH PRN (04:52)
[2016-12-09] MEDS: LEVALBUTEROL (HFA) 15 GM INHALER INH PRN (04:52)
[2016-12-09] MEDS: INSULIN ASPART [NOVOLOG] 3 ML PEN SC SCH ×4 (05:42→17:34)
[2016-12-09] MEDS: LANSOPRAZOLE 30 MG CAP GTB SCH ×2 (05:42→17:32)
[2016-12-09] MEDS: NEUTRA-PHOS 250 MG PACKET GTB SCH ×2 (09:26→22:41)
[2016-12-09] MEDS: HEPARIN 5,000 UNIT/0.5 ML VIAL SC SCH ×2 (09:27→22:42)
--- NOTE | 2016-12-09 10:29 | CONS ---
Date/Time of Note Date/Time of Note DATE: 12/09/16 TIME: 10:28 Assessment/Plan Assessment/Plan Chief Complaint/Hosp Course - s/p septic shock due to UTI +/- aspiration - resolved - s/p UTI due to VRE - Hx bacteremia due to S. hominis and Enterococcus - Hx tooth abscess treated with amoxicillin - Diarrhea;C diff negative (hx C diff 10/05/2016 & at [facility] earlier this year) - Hx candiduria (C. 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 at [facility] ~08/2016 - Major depression - Allergy to vancomycin and erythromycin with detail unknown - Acute respiratory distress 11/25/2016 likely d/t anxiety - improved - mild heat rash and decubitus ulcer of the buttocks recommendations: - skin/wound care of the buttocks - repeat cárdenas cultures if temp >100.4F - continue to monitor Pt off antibiotics Problems: Consultation Date/Type/Reason Admit Date/Time November 15, 2016 at 06:52 Initial Consult Date 11/15/16 Type of Consultation: ID Referring Provider: YAYO EDGAR DO 24 HR Interval Summary Subjective hx not possible: pt non-verbal Exam/Review of Systems Vital Signs Vitals Vital Signs Date Time Temp Pulse Resp B/P Pulse Ox O2 Delivery O2 Flow Rate FiO2 12/09/16 10:01 89 22 97 50 12/09/16 08:00 98.0 119/61 Intake and Output 12/08/16 12/08/16 12/09/16 15:00 23:00 07:00 Intake Total 900 ml 800 ml Balance 900 ml 800 ml Exam Constitutional: frail, non-verbal Psych: confusion Head: atraumatic, normocephalic Eyes: nl conjunctiva, nl lids ENMT: nl external ears & nose Neck: other (trach) Respiratory: diminished breath sounds Cardiovascular: nl pulses, regular rate and rhythm Gastrointestinal: non-tender, other (GT), soft Musculoskeletal: nl extremities to inspection Extremities: No edema, No pitting pedal edema 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: lethargic Skin: rash or lesions (erythema of the buttock, non-TTP) Results Result Diagram: 12/08/16 0605 12/08/16 0605 Results 24 hrs Laboratory Tests Test 12/08/16 12:09 12/08/16 16:47 12/09/16 00:12 12/09/16 05:34 Bedside Glucose 139 147 139 115 Medications Medications Current Medications Heparin Sodium (Porcine) (Heparin (5000 Units/0.5 ml)) 5,000 unit Q12 SC Last administered on 12/09/16 09:27; Admin Dose 5,000 UNIT; Start 11/15/16 at 21:00 Miscellaneous Information 1 ea NOTE XX ; Start 11/16/16 at 01:30 Glucose (Glutose) 15 gm Q15M PRN PO DECREASED GLUCOSE; Start 11/16/16 at 01:30 Glucose (Glutose) 22.5 gm Q15M PRN PO DECREASED GLUCOSE; Start 11/16/16 at 01: 30 Dextrose (D50w Syringe) 25 ml Q15M PRN IV DECREASED GLUCOSE; Start 11/16/16 at 01:30 Dextrose (D50w Syringe) 50 ml Q15M PRN IV DECREASED GLUCOSE; Start 11/16/16 at 01:30 Glucagon (Glucagen) 1 mg Q15M PRN IM DECREASED GLUCOSE; Start 11/16/16 at 01:30 Glucose (Glutose) 15 gm Q15M PRN BUCCAL DECREASED GLUCOSE; Start 11/16/16 at 01 :30 Ondansetron HCl (Zofran Inj) 4 mg Q4H PRN IV NAUSEA AND/OR VOMITING Last administered on 12/06/16 15:35; Admin Dose 4 MG; Start 11/17/16 at 08:30 Insulin Aspart (Novolog Insulin Pen) NOVOLOG *MILD* ALGORI... Q6 SC Last administered on 12/08/16 17:23; Admin Dose 1 UNIT; Start 11/17/16 at 12:00 Acetaminophen (Tylenol Liquid) 650 mg Q4H PRN GTB PAIN AND OR ELEVATED TEMP Last administered on 11/25/16 09:09; Admin Dose 650 MG; Start 11/21/16 at 09:00 Lansoprazole (Prevacid) 30 mg BID@18 GTB Last administered on 12/09/16 05:42 ; Admin Dose 30 MG; Start 11/27/16 at 06:00 Sodium Phosphate (Neutra-Phos) 250 mg BID GTB Last administered on 12/09/16 09: 26; Admin Dose 250 MG; Start 12/08/16 at 10:00 JAMIE CASTANO M.D. Dec 09, 2016 10:29
--- NOTE | 2016-12-09 13:45 | CONS ---
Date/Time of Note Date/Time of Note DATE: 12/09/16 TIME: 13:44 Consult Date/Type/Reason Admit Date/Time November 15, 2016 at 06:52 Initial Consult Date 11/15/16 Type of Consultation: Pulm Ordering Provider: YAYO EDGAR DO Subjective Patient comfortable at rest no distress Objective Vital Signs Date Time Temp Pulse Resp B/P Pulse Ox O2 Delivery O2 Flow Rate FiO2 12/09/16 13:09 85 22 98 50 12/09/16 12:07 98.0 103/66 Intake and Output 12/08/16 12/08/16 12/09/16 15:00 23:00 07:00 Intake Total 900 ml 800 ml Balance 900 ml 800 ml Exam PHYSICAL EXAMINATION GENERAL: Elderly lady comfortable at rest on mechanical ventilation VITAL SIGNS: see below. HEENT: Pupils equal, round, and reactive to light. Tracheostomy site clean and intact. CARDIAC: S1, S2, 1/6 systolic ejection murmur CHEST: Diminished air entry bilaterally. ABDOMEN: Mildly distended. Bowel sounds present no guarding or rebound EXTREMITIES: No cyanosis, clubbing edema +1 NEUROLOGIC: Generalized weakness Results/Medications Result Diagram: 12/08/16 0605 12/08/16 0605 Results 24 hrs Laboratory Tests Test 12/08/16 16:47 12/09/16 00:12 12/09/16 05:34 12/09/16 11:43 Bedside Glucose 147 139 115 131 Medications Current Medications Heparin Sodium (Porcine) (Heparin (5000 Units/0.5 ml)) 5,000 unit Q12 SC Last administered on 12/09/16t 09:27; Admin Dose 5,000 UNIT; Start 11/15/16 at 21:00 Miscellaneous Information 1 ea NOTE XX ; Start 11/16/16 at 01:30 Glucose (Glutose) 15 gm Q15M PRN PO DECREASED GLUCOSE; Start 11/16/16 at 01:30 Glucose (Glutose) 22.5 gm Q15M PRN PO DECREASED GLUCOSE; Start 11/16/16 at 01: 30 Dextrose (D50w Syringe) 25 ml Q15M PRN IV DECREASED GLUCOSE; Start 11/16/16 at 01:30 Dextrose (D50w Syringe) 50 ml Q15M PRN IV DECREASED GLUCOSE; Start 11/16/16 at 01:30 Glucagon (Glucagen) 1 mg Q15M PRN IM DECREASED GLUCOSE; Start 11/16/16 at 01:30 Glucose (Glutose) 15 gm Q15M PRN BUCCAL DECREASED GLUCOSE; Start 11/16/16 at 01 :30 Ondansetron HCl (Zofran Inj) 4 mg Q4H PRN IV NAUSEA AND/OR VOMITING Last administered on 12/06/16 15:35; Admin Dose 4 MG; Start 11/17/16 at 08:30 Insulin Aspart (Novolog Insulin Pen) NOVOLOG *MILD* ALGORI... Q6 SC Last administered on 12/08/16 17:23; Admin Dose 1 UNIT; Start 11/17/16 at 12:00 Acetaminophen (Tylenol Liquid) 650 mg Q4H PRN GTB PAIN AND OR ELEVATED TEMP Last administered on 11/25/16 09:09; Admin Dose 650 MG; Start 11/21/16 at 09:00 Lansoprazole (Prevacid) 30 mg BID@06,18 GTB Last administered on 12/09/16 05:42 ; Admin Dose 30 MG; Start 11/27/16 at 06:00 Sodium Phosphate (Neutra-Phos) 250 mg BID GTB Last administered on 12/09/16 09: 26; Admin Dose 250 MG; Start 12/08/16 at 10:00 Assessment/Plan Chief Complaint/Hosp Course IMP: 1. UTI possibly line sepsis, improved. Resolved leukocytosis 2. Chronic renal failure, on hemodialysis. 3. Chronic respiratory failure, now requiring invasive mechanical ventilation 4. History of dementia 5. History of cardiac arrhythmia. Status post pacemaker placement. 6. History of anemia RECS 1. Continue mechanical ventilation, decrease FiO2 as tolerated, trial of SIMV 2. BD/CPT prn 3. TF/free H20 Discharge planning Problems: RHONDA BUENROSTRO MD, [facility] Dec 09, 2016 13:45
[2016-12-09] MEDS: DIPHENHYDRAMINE 50 MG INJ IV PRN (16:12)
--- NOTE | 2016-12-09 16:30 | PN ---
DATE: 12/09/2016 CARDIOLOGY FOLLOWUP SUBJECTIVE: Discussed with the staff. The patient remains in sinus rhythm, no more episodes of atr ial fibrillation. No palpitation. No episodes of pacemaker prior issues. She complains of itchine ss in the abdomen, otherwise no chest pain or pressure, or palpitation. MEDICATIONS: Reviewed in medication reconciliation, personally reviewed. PHYSICAL EXAMINATION: VITAL SIGNS: Temperature 98, heart rate of 91, blood pressure of 103/66, respiratory rate of 20, sa turating 98% on ____ oxygen. HEENT: Normocephalic, atraumatic. NECK: Status post tracheostomy. CARDIOVASCULAR: Regular rate and rhythm, systolic murmur. PULMONARY: With mild rhonchi. GASTROINTESTINAL: Soft, nontender. EXTREMITIES: With trivial edema. NEUROLOGIC: Awake, responds appropriately. PSYCHIATRIC: Appeared to be calm. LABORATORY: Glucose is 131 this morning. ASSESSMENT AND PLAN: 1. Hypoxemic respiratory failure, status post tracheostomy, ventilator dependent. 2. Paroxysmal atrial fibrillation, currently in sinus rhythm. 3. History of sick sinus syndrome, status post permanent pacemaker. 4. Hypertension. 5. Renal failure on dialysis. 6. Status post sepsis and shock, currently improved. 7. Anemia. RECOMMENDATIONS: Dialysis as per renal will be continued. Off of any anticoagulants due to concern about the bleeding and severe anemia. Pacemaker was interrogated recently and is working functiona lly. Ventilator support and respiratory care will be continued. Diabetic control insulin as per in ternal medicine. Continue to monitor on telemetry. Dictated By: KIAH RAINES/SEEMA Conf#: [id number] DID#: [id number]
[2016-12-10] VITALS (23 sets, daily range): BP systolic 92–110; BP diastolic 52–65; PULSE 85–93; RESP 18–30
[2016-12-10] MEDS: INSULIN ASPART [NOVOLOG] 3 ML PEN SC SCH ×4 (00:39→17:30)
[2016-12-10] MEDS: LEVALBUTEROL (HFA) 15 GM INHALER INH PRN ×2 (01:18→20:20)
[2016-12-10] MEDS: IPRATROPIUM (HFA) 12.9 GM INHALER INH PRN ×2 (01:18→20:19)
[2016-12-10] MEDS: EPOETIN 4000 UNITS/1 ML INJ (ESRD) SC SCH (01:53)
[2016-12-10] MEDS: LANSOPRAZOLE 30 MG CAP GTB SCH ×2 (05:34→17:21)
[2016-12-10 06:44] LABS: ADD SCAN DIFF NO
[2016-12-10 07:00] LABS: BASOPHIL # 0.1 10^3/ul (0.0-0.1); BASOPHILS % 0.6 % (0.0-2.0); EOSINOPHILS # 0.3 10^3/ul (0.0-0.5); EOSINOPHILS % 2.9 % (0.0-7.0); HEMATOCRIT 32.7 % (37.0-47.0); LYMPHOCYTES # 2.3 10^3/ul (0.8-2.9); LYMPHOCYTES % 19.4 % (15.0-51.0); MEAN CORPUSCULAR HEMOGLOBIN 28.7 pg (29.0-33.0); MEAN CORPUSCULAR HGB CONC 30.6 g/dl (32.0-37.0); MEAN PLATELET VOLUME 11.4 fl (7.4-10.4); MONOCYTE # 1.3 10^3/ul (0.3-0.9); NEUTROPHIL # 7.7 10^3/ul (1.6-7.5); NEUTROPHILS % 64.9 % (39.0-77.0); NUCLEATED RED BLOOD CELLS # 0.1 10^3/ul (0.0-0.0); NUCLEATED RED BLOOD CELLS% 0.5 /100WBC (0.0-0.0); PLATELET COUNT 375 10^3/UL (140-415); RED BLOOD COUNT 3.48 10^6/ul (4.20-5.40); RED CELL DISTRIBUTION WIDTH 19.6 % (11.5-14.5); WHITE BLOOD COUNT 11.8 10^3/ul (4.8-10.8)
[2016-12-10 07:11] LABS: CALCIUM 9.5 mg/dl (8.4-10.2); CREATININE 1.89 mg/dl (0.44-1.00); POTASSIUM 4.2 mmol/L (3.5-5.1)
[2016-12-10] MEDS: NEUTRA-PHOS 250 MG PACKET GTB SCH ×2 (09:27→20:48)
[2016-12-10] MEDS: HEPARIN 5,000 UNIT/0.5 ML VIAL SC SCH ×2 (09:28→22:04)
--- NOTE | 2016-12-10 10:08 | CONS ---
Date/Time of Note Date/Time of Note DATE: 12/10/16 TIME: 10:07 Consult Date/Type/Reason Admit Date/Time November 15, 2016 at 06:52 Initial Consult Date 11/15/16 Type of Consultation: nephmed Ordering Provider: YAYO EDGAR The patient had hemodialysis yesterday, tolerated well. No other events noted. No hemoptysis, hematemesis or hematochezia. OBJECTIVE: HEENT: Head is normocephalic. NECK: Shows trach. HEART: Regular rate. LUNGS: Show diminished breath sounds at the base. ABDOMEN: Soft, nontender to palpation without rebound or guarding. EXTREMITIES: Negative for clubbing, cyanosis, no edema. DERMATOLOGIC: No rashes. MUSCULOSKELETAL: No joint effusions. NEUROLOGIC: No change in exam. Objective Vital Signs Date Time Temp Pulse Resp B/P Pulse Ox O2 Delivery O2 Flow Rate FiO2 12/10/16 08:50 88 12/10/16 08:29 98.4 19 110/55 99 12/10/16 07:35 50 Intake and Output 12/09/16 12/09/16 12/10/16 15:00 23:00 07:00 Intake Total 1260 ml 850 ml Output Total 3300 ml Balance -2040 ml 850 ml Results/Medications Result Diagram: 12/10/16 0555 12/10/16 0550 Results 24 hrs Laboratory Tests Test 12/09/16 11:43 12/09/16 17:33 12/10/16 00:33 12/10/16 05:40 Bedside Glucose 131 127 145 127 Test 12/10/16 05:50 12/10/16 05:55 Sodium Level 138 Potassium Level 4.2 Chloride Level 101 Carbon Dioxide Level 28 Anion Gap 13 Blood Urea Nitrogen 32 H Creatinine 1.89 H Glucose Level 117 Calcium Level 9.5 Phosphorus Level 3.0 Magnesium Level 2.0 White Blood Count 11.8 #H Red Blood Count 3.48 L Hemoglobin 10.0 L Hematocrit 32.7 L Mean Corpuscular Volume 94.0 Mean Corpuscular Hemoglobin 28.7 L Mean Corpuscular Hemoglobin Concent 30.6 L Red Cell Distribution Width 19.6 H Platelet Count 375 Mean Platelet Volume 11.4 H Neutrophils % 64.9 Lymphocytes % 19.4 Monocytes % 11.0 Eosinophils % 2.9 Basophils % 0.6 Nucleated Red Blood Cells % 0.5 H Neutrophils # 7.7 H Lymphocytes # 2.3 Monocytes # 1.3 H Eosinophils # 0.3 Basophils # 0.1 Nucleated Red Blood Cells # 0.1 H Medications Current Medications Heparin Sodium (Porcine) (Heparin (5000 Units/0.5 ml)) 5,000 unit Q12 SC Last administered on 12/10/16 09:28; Admin Dose 5,000 UNIT; Start 11/15/16 at 21:00 Miscellaneous Information 1 ea NOTE XX ; Start 11/16/16 at 01:30 Glucose (Glutose) 15 gm Q15M PRN PO DECREASED GLUCOSE; Start 11/16/16 at 01:30 Glucose (Glutose) 22.5 gm Q15M PRN PO DECREASED GLUCOSE; Start 11/16/16 at 01: 30 Dextrose (D50w Syringe) 25 ml Q15M PRN IV DECREASED GLUCOSE; Start 11/16/16 at 01:30 Dextrose (D50w Syringe) 50 ml Q15M PRN IV DECREASED GLUCOSE; Start 11/16/16 at 01:30 Glucagon (Glucagen) 1 mg Q15M PRN IM DECREASED GLUCOSE; Start 11/16/16 at 01:30 Glucose (Glutose) 15 gm Q15M PRN BUCCAL DECREASED GLUCOSE; Start 11/16/16 at 01 :30 Ondansetron HCl (Zofran Inj) 4 mg Q4H PRN IV NAUSEA AND/OR VOMITING Last administered on 12/06/16 15:35; Admin Dose 4 MG; Start 11/17/16 at 08:30 Insulin Aspart (Novolog Insulin Pen) NOVOLOG *MILD* ALGORI... Q6 SC Last administered on 12/10/16 00:39; Admin Dose 1 UNIT; Start 11/17/16 at 12:00 Acetaminophen (Tylenol Liquid) 650 mg Q4H PRN GTB PAIN AND OR ELEVATED TEMP Last administered on 11/25/16 09:09; Admin Dose 650 MG; Start 11/21/16 at 09:00 Lansoprazole (Prevacid) 30 mg BID@,18 GTB Last administered on 12/10/16 05:34 ; Admin Dose 30 MG; Start 11/27/16 at 06:00 Sodium Phosphate (Neutra-Phos) 250 mg BID GTB Last administered on 12/10/16 09: 27; Admin Dose 250 MG; Start 12/08/16 at 10:00 Diphenhydramine HCl (Benadryl) 25 mg Q6H PRN IV ITCHING Last administered on 16:12; Admin Dose 25 MG; Start 12/09/16 at 16:30 Assessment/Plan Chief Complaint/Hosp Course 1. Sepsis secondary to pneumonia and urinary tract infection. The patient has completed antibiotic course. 2. Hypokalemia, improved. Continue to monitor. 3. Anemia. Continue to monitor hemoglobin and hematocrit levels. Continue Epogen. 4. Ventilatory dependent respiratory failure. Vent settings have been reviewed. ABG has been reviewed. Continue to monitor. 5. Dysphagia status post PEG tube, tube feed. 6. Acute kidney injury on top of chronic kidney disease. The patient is currently dialysis dependent. There is no evidence of recovery, continue dialysis 3 times weekly. 7. Atrial fibrillation, rate controlled. Continue current medical management. 8. Mineral bone disorder. Continue to monitor calcium and phosphorus levels. 9. Congestive heart failure. Continue current treatment plan. 10. Diabetes, continue Accu-Cheks and sliding scale. 11. History of breast cancer status post mastectomy. 12. Encephalopathy, etiology toxic metabolic. Continue to monitor. 13. Gastrointestinal and deep venous thrombosis prophylaxis. Continue proton pump inhibitor and heparin. Problems: TAMMIE HDZ MD Dec 10, 2016 10:08
--- NOTE | 2016-12-10 12:00 | CONS ---
Date/Time of Note Date/Time of Note DATE: 12/10/16 TIME: 11:58 Assessment/Plan Assessment/Plan Additional Assessment/Plan Ventilator settings; SIMV of 10, tidal volume 500, PEEP of 5, pressure support 10, 50% FiO2. Assessment recommendations; 1. Patient admitted for UTI with sepsis with significant clinical improvement. 2. Chronic respiratory failure on ventilator. 3. Dementia. 4. History of cardiac arrhythmia. 5. Chronic renal failure, on hemodialysis. Continue current supportive care. Consultation Date/Type/Reason Admit Date/Time November 15, 2016 at 06:52 Initial Consult Date 11/15/16 Type of Consultation: Pulmonary Referring Provider: YAYO EDGAR DO 24 HR Interval Summary Free Text/Dictation Patient's condition is stable. Remains awake alert and follows simple commands. General exam; elderly lady, on ventilator via tracheostomy currently in no distress. Patient appears quite emaciated. Exam/Review of Systems Vital Signs Vitals Vital Signs Date Time Temp Pulse Resp B/P Pulse Ox O2 Delivery O2 Flow Rate FiO2 12/10/16 11:45 98.4 83 19 100/65 98 12/10/16 09:45 50 Intake and Output 12/09/16 12/09/16 12/10/16 15:00 23:00 07:00 Intake Total 1260 ml 850 ml Output Total 3300 ml Balance -2040 ml 850 ml Exam HEENT exam is; supple neck, no JVD. No lymphadenopathy. Midline trachea. No thyromegaly. Tracheostomy in place with clean insertion site. She does have multiple carious teeth. Chest examination; diminished but clear vessel. S1-S2 audible, no murmurs. Abdomen examination; soft, G-tube in place. No organomegaly. Bowel sounds audible. Extremity examination; no peripheral edema. [employer] examination; patient is awake alert follows bands and moves all 4 extremities on command. There is generalized muscular weakness. Results Result Diagram: 12/10/16 0555 12/10/16 0550 Results 24 hrs Laboratory Tests Test 12/09/16 17:33 12/10/16 00:33 12/10/16 05:40 12/10/16 05:50 Bedside Glucose 127 145 127 Sodium Level 138 Potassium Level 4.2 Chloride Level 101 Carbon Dioxide Level 28 Anion Gap 13 Blood Urea Nitrogen 32 H Creatinine 1.89 H Glucose Level 117 Calcium Level 9.5 Phosphorus Level 3.0 Magnesium Level 2.0 Test 12/10/16 05:55 White Blood Count 11.8 #H Red Blood Count 3.48 L Hemoglobin 10.0 L Hematocrit 32.7 L Mean Corpuscular Volume 94.0 Mean Corpuscular Hemoglobin 28.7 L Mean Corpuscular Hemoglobin Concent 30.6 L Red Cell Distribution Width 19.6 H Platelet Count 375 Mean Platelet Volume 11.4 H Neutrophils % 64.9 Lymphocytes % 19.4 Monocytes % 11.0 Eosinophils % 2.9 Basophils % 0.6 Nucleated Red Blood Cells % 0.5 H Neutrophils # 7.7 H Lymphocytes # 2.3 Monocytes # 1.3 H Eosinophils # 0.3 Basophils # 0.1 Nucleated Red Blood Cells # 0.1 H Medications Medications Current Medications Heparin Sodium (Porcine) (Heparin (5000 Units/0.5 ml)) 5,000 unit Q12 SC Last administered on 12/10/16 09:28; Admin Dose 5,000 UNIT; Start 11/15/16 at 21:00 Miscellaneous Information 1 ea NOTE XX ; Start 11/16/16 at 01:30 Glucose (Glutose) 15 gm Q15M PRN PO DECREASED GLUCOSE; Start 11/16/16 at 01:30 Glucose (Glutose) 22.5 gm Q15M PRN PO DECREASED GLUCOSE; Start 11/16/16 at 01: 30 Dextrose (D50w Syringe) 25 ml Q15M PRN IV DECREASED GLUCOSE; Start 11/16/16 at 01:30 Dextrose (D50w Syringe) 50 ml Q15M PRN IV DECREASED GLUCOSE; Start 11/16/16 at 01:30 Glucagon (Glucagen) 1 mg Q15M PRN IM DECREASED GLUCOSE; Start 11/16/16 at 01:30 Glucose (Glutose) 15 gm Q15M PRN BUCCAL DECREASED GLUCOSE; Start 11/16/16 at 01 :30 Ondansetron HCl (Zofran Inj) 4 mg Q4H PRN IV NAUSEA AND/OR VOMITING Last administered on 12/06/16 15:35; Admin Dose 4 MG; Start 11/17/16 at 08:30 Insulin Aspart (Novolog Insulin Pen) NOVOLOG *MILD* ALGORI... Q6 SC Last administered on 12/10/16 00:39; Admin Dose 1 UNIT; Start 11/17/16 at 12:00 Acetaminophen (Tylenol Liquid) 650 mg Q4H PRN GTB PAIN AND OR ELEVATED TEMP Last administered on 11/25/16 09:09; Admin Dose 650 MG; Start 11/21/16 at 09:00 Lansoprazole (Prevacid) 30 mg BID@,18 GTB Last administered on 12/10/16 05:34 ; Admin Dose 30 MG; Start 11/27/16 at 06:00 Sodium Phosphate (Neutra-Phos) 250 mg BID GTB Last administered on 12/10/16 09: 27; Admin Dose 250 MG; Start 12/08/16 at 10:00 Diphenhydramine HCl (Benadryl) 25 mg Q6H PRN IV ITCHING Last administered on 16:12; Admin Dose 25 MG; Start 12/09/16 at 16:30 JUSTIN LINARES Dec 10, 2016 12:00
[2016-12-10] MEDS: DIPHENHYDRAMINE 50 MG INJ IV PRN (12:51)
--- NOTE | 2016-12-10 20:20 | CONS ---
Date/Time of Note Date/Time of Note DATE: 12/10/16 TIME: 20:19 Assessment/Plan Assessment/Plan Additional Assessment/Plan Assessment/Plan Additional Assessment/Plan Assessment 1. Patient admitted for sepsis from UTI possibly line sepsis, improved. Resolved leukocytosis 2. Chronic renal failure, on hemodialysis. 3. Chronic respiratory failure, now requiring invasive mechanical ventilation 4. History of dementia 5. History of cardiac arrhythmia. Status post pacemaker placement. 6. History of anemia, h/h stable, patient is on Epogen 7. Dysphagia 8. Occult GI bleeding, discussed with the son and the patient there is no evidence of acute GI bleeding and hematocrit is stable Plan 1. Monitor H&H and overt GIB. Consider EGD and colonoscopy if there is GIB with downtrending h/h 2. Continue tube feeding 4. Continue other supportive care Consultation Date/Type/Reason Admit Date/Time November 15, 2016 at 06:52 Initial Consult Date 11/15/16 Type of Consultation: Pulmonary Referring Provider: YAYO EDGAR DO 24 HR Interval Summary Constitutional: improved Exam/Review of Systems Vital Signs Vitals Vital Signs Date Time Temp Pulse Resp B/P Pulse Ox O2 Delivery O2 Flow Rate FiO2 12/10/16 17:05 94 23 96 50 12/10/16 16:02 98.8 92/52 Intake and Output 12/09/16 12/09/16 12/10/16 15:00 23:00 07:00 Intake Total 1260 ml 850 ml Output Total 3300 ml Balance -2040 ml 850 ml Results Result Diagram: 12/10/16 0555 12/10/16 0550 Results 24 hrs Laboratory Tests Test 12/10/16 00:33 12/10/16 05:40 12/10/16 05:50 12/10/16 05:55 Bedside Glucose 145 127 Sodium Level 138 Potassium Level 4.2 Chloride Level 101 Carbon Dioxide Level 28 Anion Gap 13 Blood Urea Nitrogen 32 H Creatinine 1.89 H Glucose Level 117 Calcium Level 9.5 Phosphorus Level 3.0 Magnesium Level 2.0 White Blood Count 11.8 #H Red Blood Count 3.48 L Hemoglobin 10.0 L Hematocrit 32.7 L Mean Corpuscular Volume 94.0 Mean Corpuscular Hemoglobin 28.7 L Mean Corpuscular Hemoglobin Concent 30.6 L Red Cell Distribution Width 19.6 H Platelet Count 375 Mean Platelet Volume 11.4 H Neutrophils % 64.9 Lymphocytes % 19.4 Monocytes % 11.0 Eosinophils % 2.9 Basophils % 0.6 Nucleated Red Blood Cells % 0.5 H Neutrophils # 7.7 H Lymphocytes # 2.3 Monocytes # 1.3 H Eosinophils # 0.3 Basophils # 0.1 Nucleated Red Blood Cells # 0.1 H Test 12/10/16 12:48 12/10/16 17:20 Bedside Glucose 125 122 Medications Medications Current Medications Heparin Sodium (Porcine) (Heparin (5000 Units/0.5 ml)) 5,000 unit Q12 SC Last administered on 12/10/16 09:28; Admin Dose 5,000 UNIT; Start 11/15/16 at 21:00 Miscellaneous Information 1 ea NOTE XX ; Start 11/16/16 at 01:30 Glucose (Glutose) 15 gm Q15M PRN PO DECREASED GLUCOSE; Start 11/16/16 at 01:30 Glucose (Glutose) 22.5 gm Q15M PRN PO DECREASED GLUCOSE; Start 11/16/16 at 01: 30 Dextrose (D50w Syringe) 25 ml Q15M PRN IV DECREASED GLUCOSE; Start 11/16/16 at 01:30 Dextrose (D50w Syringe) 50 ml Q15M PRN IV DECREASED GLUCOSE; Start 11/16/16 at 01:30 Glucagon (Glucagen) 1 mg Q15M PRN IM DECREASED GLUCOSE; Start 11/16/16 at 01:30 Glucose (Glutose) 15 gm Q15M PRN BUCCAL DECREASED GLUCOSE; Start 11/16/16 at 01 :30 Ondansetron HCl (Zofran Inj) 4 mg Q4H PRN IV NAUSEA AND/OR VOMITING Last administered on 12/06/16 15:35; Admin Dose 4 MG; Start 11/17/16 at 08:30 Insulin Aspart (Novolog Insulin Pen) NOVOLOG *MILD* ALGORI... Q6 SC Last administered on 12/10/16 00:39; Admin Dose 1 UNIT; Start 11/17/16 at 12:00 Acetaminophen (Tylenol Liquid) 650 mg Q4H PRN GTB PAIN AND OR ELEVATED TEMP Last administered on 11/25/16 09:09; Admin Dose 650 MG; Start 11/21/16 at 09:00 Lansoprazole (Prevacid) 30 mg BID@18 GTB Last administered on 12/10/16 17:21 ; Admin Dose 30 MG; Start 11/27/16 at 06:00 Sodium Phosphate (Neutra-Phos) 250 mg BID GTB Last administered on 12/10/16 09: 27; Admin Dose 250 MG; Start 12/08/16 at 10:00 Diphenhydramine HCl (Benadryl) 25 mg Q6H PRN IV ITCHING Last administered on 12:51; Admin Dose 25 MG; Start 12/09/16 at 16:30 DEBRA JEAN MD Dec 10, 2016 20:20
[2016-12-11] VITALS (29 sets, daily range): BP systolic 91–124; BP diastolic 48–69; PULSE 82–95; RESP 17–30
[2016-12-11] MEDS: INSULIN ASPART [NOVOLOG] 3 ML PEN SC SCH ×5 (01:14→21:28)
[2016-12-11] MEDS: IPRATROPIUM (HFA) 12.9 GM INHALER INH PRN ×2 (01:53→15:01)
[2016-12-11] MEDS: LEVALBUTEROL (HFA) 15 GM INHALER INH PRN ×2 (01:53→15:02)
[2016-12-11] MEDS: LANSOPRAZOLE 30 MG CAP GTB SCH ×2 (05:58→17:04)
[2016-12-11 07:12] LABS: ADD SCAN DIFF NO
[2016-12-11 07:14] LABS: BASOPHIL # 0.1 10^3/ul (0.0-0.1); BASOPHILS % 0.5 % (0.0-2.0); EOSINOPHILS # 0.3 10^3/ul (0.0-0.5); EOSINOPHILS % 2.9 % (0.0-7.0); HEMATOCRIT 31.2 % (37.0-47.0); HEMOGLOBIN 9.6 g/dl (12.0-16.0); LYMPHOCYTES # 2.2 10^3/ul (0.8-2.9); LYMPHOCYTES % 19.6 % (15.0-51.0); MEAN CORPUSCULAR HEMOGLOBIN 28.5 pg (29.0-33.0); MEAN CORPUSCULAR HGB CONC 30.8 g/dl (32.0-37.0); MEAN CORPUSCULAR VOLUME 92.6 fl (82.0-101.0); MEAN PLATELET VOLUME 11.5 fl (7.4-10.4); MONOCYTE # 1.2 10^3/ul (0.3-0.9); MONOCYTES % 10.6 % (0.0-11.0); NEUTROPHIL # 7.4 10^3/ul (1.6-7.5); NEUTROPHILS % 65.6 % (39.0-77.0); NUCLEATED RED BLOOD CELLS% 0.4 /100WBC (0.0-0.0); PLATELET COUNT 357 10^3/UL (140-415); RED BLOOD COUNT 3.37 10^6/ul (4.20-5.40); RED CELL DISTRIBUTION WIDTH 19.5 % (11.5-14.5); WHITE BLOOD COUNT 11.3 10^3/ul (4.8-10.8)
[2016-12-11] MEDS: NEUTRA-PHOS 250 MG PACKET GTB SCH ×2 (08:50→21:29)
[2016-12-11] MEDS: HEPARIN 5,000 UNIT/0.5 ML VIAL SC SCH ×2 (08:56→21:38)
--- NOTE | 2016-12-11 09:59 | CONS ---
Date/Time of Note Date/Time of Note DATE: 12/11/16 TIME: 09:59 Consult Date/Type/Reason Admit Date/Time November 15, 2016 at 06:52 Initial Consult Date 11/15/16 Type of Consultation: neph Ordering Provider: YAYO EDGAR DO Subjective The patient on hd now, tolerating well. No other events noted. No hemoptysis, hematemesis or hematochezia. OBJECTIVE: HEENT: Head is normocephalic. NECK: Shows trach. HEART: Regular rate. LUNGS: Show diminished breath sounds at the base. ABDOMEN: Soft, nontender to palpation without rebound or guarding. EXTREMITIES: Negative for clubbing, cyanosis, no edema. DERMATOLOGIC: No rashes. MUSCULOSKELETAL: No joint effusions. NEUROLOGIC: No change in exam. Objective Vital Signs Date Time Temp Pulse Resp B/P Pulse Ox O2 Delivery O2 Flow Rate FiO2 12/11/16 09:15 83 24 96 50 12/11/16 08:10 98.0 112/55 Intake and Output 12/10/16 12/10/16 12/11/16 15:00 23:00 07:00 Intake Total 850 ml 650 ml Balance 850 ml 650 ml Results/Medications Result Diagram: 12/11/16 0630 12/10/16 0550 Results 24 hrs Laboratory Tests Test 12/10/16 12:48 12/10/16 17:20 12/11/16 01:12 12/11/16 05:57 Bedside Glucose 125 122 138 134 Test 12/11/16 06:30 White Blood Count 11.3 H Red Blood Count 3.37 L Hemoglobin 9.6 L Hematocrit 31.2 L Mean Corpuscular Volume 92.6 Mean Corpuscular Hemoglobin 28.5 L Mean Corpuscular Hemoglobin Concent 30.8 L Red Cell Distribution Width 19.5 H Platelet Count 357 Mean Platelet Volume 11.5 H Neutrophils % 65.6 Lymphocytes % 19.6 Monocytes % 10.6 Eosinophils % 2.9 Basophils % 0.5 Nucleated Red Blood Cells % 0.4 H Neutrophils # 7.4 Lymphocytes # 2.2 Monocytes # 1.2 H Eosinophils # 0.3 Basophils # 0.1 Nucleated Red Blood Cells # 0.0 Medications Current Medications Heparin Sodium (Porcine) (Heparin (5000 Units/0.5 ml)) 5,000 unit Q12 SC Last administered on 12/11/16 08:56; Admin Dose 5,000 UNIT; Start 11/15/16 at 21:00 Miscellaneous Information 1 ea NOTE XX ; Start 11/16/16 at 01:30 Glucose (Glutose) 15 gm Q15M PRN PO DECREASED GLUCOSE; Start 11/16/16 at 01:30 Glucose (Glutose) 22.5 gm Q15M PRN PO DECREASED GLUCOSE; Start 11/16/16 at 01: 30 Dextrose (D50w Syringe) 25 ml Q15M PRN IV DECREASED GLUCOSE; Start 11/16/16 at 01:30 Dextrose (D50w Syringe) 50 ml Q15M PRN IV DECREASED GLUCOSE; Start 11/16/16 at 01:30 Glucagon (Glucagen) 1 mg Q15M PRN IM DECREASED GLUCOSE; Start 11/16/16 at 01:30 Glucose (Glutose) 15 gm Q15M PRN BUCCAL DECREASED GLUCOSE; Start 11/16/16 at 01 :30 Ondansetron HCl (Zofran Inj) 4 mg Q4H PRN IV NAUSEA AND/OR VOMITING Last administered on 12/06/16 15:35; Admin Dose 4 MG; Start 11/17/16 at 08:30 Insulin Aspart (Novolog Insulin Pen) NOVOLOG *MILD* ALGORI... Q6 SC Last administered on 12/10/16 00:39; Admin Dose 1 UNIT; Start 11/17/16 at 12:00 Acetaminophen (Tylenol Liquid) 650 mg Q4H PRN GTB PAIN AND OR ELEVATED TEMP Last administered on 11/25/16 09:09; Admin Dose 650 MG; Start 11/21/16 at 09:00 Lansoprazole (Prevacid) 30 mg BID@18 GTB Last administered on 12/11/16 05:58 ; Admin Dose 30 MG; Start 11/27/16 at 06:00 Sodium Phosphate (Neutra-Phos) 250 mg BID GTB Last administered on 12/11/16 08: 50; Admin Dose 250 MG; Start 12/08/16 at 10:00 Diphenhydramine HCl (Benadryl) 25 mg Q6H PRN IV ITCHING Last administered on 12:51; Admin Dose 25 MG; Start 12/09/16 at 16:30 Assessment/Plan Chief Complaint/Hosp Course 1. Sepsis secondary to pneumonia and urinary tract infection. The patient has completed antibiotic course. 2. Hypokalemia, improved. Continue to monitor. 3. Anemia. Continue to monitor hemoglobin and hematocrit levels. Continue Epogen. 4. Ventilatory dependent respiratory failure. Vent settings have been reviewed. ABG has been reviewed. Continue to monitor. 5. Dysphagia status post PEG tube, tube feed. 6. Acute kidney injury on top of chronic kidney disease. The patient is currently dialysis dependent. There is no evidence of recovery, continue dialysis 3 times weekly. 7. Atrial fibrillation, rate controlled. Continue current medical management. 8. Mineral bone disorder. Continue to monitor calcium and phosphorus levels. 9. Congestive heart failure. Continue current treatment plan. 10. Diabetes, continue Accu-Cheks and sliding scale. 11. History of breast cancer status post mastectomy. 12. Encephalopathy, etiology toxic metabolic. Continue to monitor. 13. Gastrointestinal and deep venous thrombosis prophylaxis. Continue proton pump inhibitor and heparin. Problems: TAMMIE HDZ MD Dec 11, 2016 09:59
--- NOTE | 2016-12-11 11:26 | CONS ---
Date/Time of Note Date/Time of Note DATE: 12/11/16 TIME: 11:22 Assessment/Plan Assessment/Plan Chief Complaint/Hosp Course - recurrent low grade leukocytosis - s/p septic shock due to UTI +/- aspiration - resolved - s/p UTI due to VRE - Hx bacteremia due to S. hominis and Enterococcus - Hx tooth abscess treated with amoxicillin - Diarrhea;C diff negative (hx C diff 10/05/2016 & at [facility] earlier this year) - Hx candiduria (C. 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 - VDRF with tracheostomy - Hx ARDS & COPD - PAF with RVR, converted back to SR - PPM - Acute on chronic diastolic HF - PREMA on CKD requiring HD (previously on CRRT at [facility] 08/2016) - ACD - Hx DIC and thrombocytopenia - Acute toxic metabolic encephalopathy - improved a little - Dysphagia s/p PEG - Hx R breast CA s/p bilateral mastectomies - Hx DVT per records from [facility] - Critical care polyneuropathy confirmed by EMG at [facility] ~08/2016 - Major depression - Allergy to vancomycin and erythromycin with detail unknown - Acute respiratory distress 11/25/2016 likely d/t anxiety - improved - mild heat rash and decubitus ulcer of the buttocks recommendations: - I recommend and have ordered: blood cultures from HD catheter and by phlebotomy, straight cath for urinalysis and urine culture if sufficient amount of urine is collected, CXR management d/w Pt, her RN and HD nurse Problems: Consultation Date/Type/Reason Admit Date/Time November 15, 2016 at 06:52 Initial Consult Date 11/15/16 Type of Consultation: ID Referring Provider: YAYO EDGAR DO 24 HR Interval Summary Subjective hx not possible: pt non-verbal Exam/Review of Systems Vital Signs Vitals Vital Signs Date Time Temp Pulse Resp B/P Pulse Ox O2 Delivery O2 Flow Rate FiO2 12/11/16 09:15 83 24 96 50 12/11/16 08:10 98.0 112/55 Intake and Output 12/10/16 12/10/16 12/11/16 15:00 23:00 07:00 Intake Total 850 ml 650 ml Balance 850 ml 650 ml Exam Constitutional: non-verbal Psych: confusion Head: atraumatic, other (b/l temporal wasting) Eyes: nl conjunctiva, nl lids ENMT: nl external ears & nose, nl nasal mucosa & septum Neck: other (trach) Respiratory: diminished breath sounds Cardiovascular: nl pulses, regular rate and rhythm Gastrointestinal: non-tender, soft Extremities: No edema 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: lethargic Skin: other (s/p mastectomy) Results Result Diagram: 12/11/16 0630 12/10/16 0550 Results 24 hrs Laboratory Tests Test 12/10/16 12:48 12/10/16 17:20 12/11/16 01:12 12/11/16 05:57 Bedside Glucose 125 122 138 134 Test 12/11/16 06:30 White Blood Count 11.3 H Red Blood Count 3.37 L Hemoglobin 9.6 L Hematocrit 31.2 L Mean Corpuscular Volume 92.6 Mean Corpuscular Hemoglobin 28.5 L Mean Corpuscular Hemoglobin Concent 30.8 L Red Cell Distribution Width 19.5 H Platelet Count 357 Mean Platelet Volume 11.5 H Neutrophils % 65.6 Lymphocytes % 19.6 Monocytes % 10.6 Eosinophils % 2.9 Basophils % 0.5 Nucleated Red Blood Cells % 0.4 H Neutrophils # 7.4 Lymphocytes # 2.2 Monocytes # 1.2 H Eosinophils # 0.3 Basophils # 0.1 Nucleated Red Blood Cells # 0.0 Medications Medications Current Medications Heparin Sodium (Porcine) (Heparin (5000 Units/0.5 ml)) 5,000 unit Q12 SC Last administered on 12/11/16t 08:56; Admin Dose 5,000 UNIT; Start 11/15/16 at 21:00 Miscellaneous Information 1 ea NOTE XX ; Start 11/16/16 at 01:30 Glucose (Glutose) 15 gm Q15M PRN PO DECREASED GLUCOSE; Start 11/16/16 at 01:30 Glucose (Glutose) 22.5 gm Q15M PRN PO DECREASED GLUCOSE; Start 11/16/16 at 01: 30 Dextrose (D50w Syringe) 25 ml Q15M PRN IV DECREASED GLUCOSE; Start 11/16/16 at 01:30 Dextrose (D50w Syringe) 50 ml Q15M PRN IV DECREASED GLUCOSE; Start 11/16/16 at 01:30 Glucagon (Glucagen) 1 mg Q15M PRN IM DECREASED GLUCOSE; Start 11/16/16 at 01:30 Glucose (Glutose) 15 gm Q15M PRN BUCCAL DECREASED GLUCOSE; Start 11/16/16 at 01 :30 Ondansetron HCl (Zofran Inj) 4 mg Q4H PRN IV NAUSEA AND/OR VOMITING Last administered on 12/06/16 15:35; Admin Dose 4 MG; Start 11/17/16 at 08:30 Insulin Aspart (Novolog Insulin Pen) NOVOLOG *MILD* ALGORI... Q6 SC Last administered on 12/10/16 00:39; Admin Dose 1 UNIT; Start 11/17/16 at 12:00 Acetaminophen (Tylenol Liquid) 650 mg Q4H PRN GTB PAIN AND OR ELEVATED TEMP Last administered on 11/25/16 09:09; Admin Dose 650 MG; Start 11/21/16 at 09:00 Lansoprazole (Prevacid) 30 mg BID@06,18 GTB Last administered on 12/11/16 05:58 ; Admin Dose 30 MG; Start 11/27/16 at 06:00 Sodium Phosphate (Neutra-Phos) 250 mg BID GTB Last administered on 12/11/16 08: 50; Admin Dose 250 MG; Start 12/08/16 at 10:00 Diphenhydramine HCl (Benadryl) 25 mg Q6H PRN IV ITCHING Last administered on 12:51; Admin Dose 25 MG; Start 12/09/16 at 16:30 JAMIE CASTANO M.D. Dec 11, 2016 11:26
[2016-12-11] MEDS: DIPHENHYDRAMINE 50 MG INJ IV PRN (12:48)
[2016-12-11] MEDS: EPOETIN 4000 UNITS/1 ML INJ (ESRD) SC SCH (13:25)
--- NOTE | 2016-12-11 13:31 | RADRPT ---
PROCEDURE: XR Chest. CLINICAL INDICATION: Infiltrates. Dyspnea. TECHNIQUE: Single frontal chest x-ray. COMPARISON: 11/25/2016 FINDINGS: Tracheostomy tube, right-sided tunneled dialysis catheter, left-sided dual chamber cardiac pacer in place unchanged. Low lung volumes with hilar vascular crowding and mild bibasilar atelectasis is un changed. There are no effusions. .. The cardiomediastinal silhouette is unremarkable. The osseous structures are intact. IMPRESSION: Tubes and lines unchanged. Low lung volumes with mild bibasilar atelectasis unchanged.. RPTAT: QQ .Manuel Decker MD, MD Date Time Electronically viewed and signed by .Manuel Decker MD, MD on 12/11/2016 13:31 .L/
--- NOTE | 2016-12-11 14:15 | CONS ---
Date/Time of Note Date/Time of Note DATE: 12/11/16 TIME: 14:13 Assessment/Plan Assessment/Plan Additional Assessment/Plan Ventilator settings; SIMV of 10, tidal volume 500, PEEP of 5, pressure support 10, 50% FiO2. Assessment recommendations; next 1. Patient admitted for UTI and sepsis with significant clinical improvement. Off antibiotics now. 2. Chronic respiratory failure, patient maintained on ventilator. 3. Underlying severe muscular weakness. Precluding weaning from ventilator. 4. History of chronic renal failure, on hemodialysis. Continue current treatment. Consultation Date/Type/Reason Admit Date/Time November 15, 2016 at 06:52 Initial Consult Date 11/15/16 Type of Consultation: Pulmonary Referring Provider: YAYO EDGAR DO 24 HR Interval Summary Free Text/Dictation Patient condition stable. Remains awake and alert. Appears mildly anxious. General exam; elderly woman, on ventilator via tracheostomy currently in no distress. Exam/Review of Systems Vital Signs Vitals Vital Signs Date Time Temp Pulse Resp B/P Pulse Ox O2 Delivery O2 Flow Rate FiO2 12/11/16 12:30 90 12/11/16 11:56 98.6 19 122/55 97 12/11/16 11:05 50 Intake and Output 12/10/16 12/10/16 12/11/16 15:00 23:00 07:00 Intake Total 850 ml 650 ml Balance 850 ml 650 ml Exam HEENT examined; supple neck, no JVD. No lymphadenopathy midline trachea. No thyromegaly. Tracheostomy placed with clean insertion site. Patient does have multiple carious teeth. Chest examination; clear to auscultation. S1-S2 audible, no murmurs. Regular rhythm. Abdomen examination; soft, G-tube in place. No organomegaly. Bowel sounds audible. Extremity examination; no peripheral edema. Pulses 1+ bilaterally. FASHION PHOTOGRAPHER examination; patient awake alert follows commands and moves all 4 extremities but has severe generalized muscular weakness. Results Result Diagram: 12/11/16 0630 12/10/16 0550 Results 24 hrs Laboratory Tests Test 12/10/16 17:20 12/11/16 01:12 12/11/16 05:57 12/11/16 06:30 Bedside Glucose 122 138 134 White Blood Count 11.3 H Red Blood Count 3.37 L Hemoglobin 9.6 L Hematocrit 31.2 L Mean Corpuscular Volume 92.6 Mean Corpuscular Hemoglobin 28.5 L Mean Corpuscular Hemoglobin Concent 30.8 L Red Cell Distribution Width 19.5 H Platelet Count 357 Mean Platelet Volume 11.5 H Neutrophils % 65.6 Lymphocytes % 19.6 Monocytes % 10.6 Eosinophils % 2.9 Basophils % 0.5 Nucleated Red Blood Cells % 0.4 H Neutrophils # 7.4 Lymphocytes # 2.2 Monocytes # 1.2 H Eosinophils # 0.3 Basophils # 0.1 Nucleated Red Blood Cells # 0.0 Medications Medications Current Medications Heparin Sodium (Porcine) (Heparin (5000 Units/0.5 ml)) 5,000 unit Q12 SC Last administered on 12/11/16 08:56; Admin Dose 5,000 UNIT; Start 11/15/16 at 21:00 Miscellaneous Information 1 ea NOTE XX ; Start 11/16/16 at 01:30 Glucose (Glutose) 15 gm Q15M PRN PO DECREASED GLUCOSE; Start 11/16/16 at 01:30 Glucose (Glutose) 22.5 gm Q15M PRN PO DECREASED GLUCOSE; Start 11/16/16 at 01: 30 Dextrose (D50w Syringe) 25 ml Q15M PRN IV DECREASED GLUCOSE; Start 11/16/16 at 01:30 Dextrose (D50w Syringe) 50 ml Q15M PRN IV DECREASED GLUCOSE; Start 11/16/16 at 01:30 Glucagon (Glucagen) 1 mg Q15M PRN IM DECREASED GLUCOSE; Start 11/16/16 at 01:30 Glucose (Glutose) 15 gm Q15M PRN BUCCAL DECREASED GLUCOSE; Start 11/16/16 at 01 :30 Ondansetron HCl (Zofran Inj) 4 mg Q4H PRN IV NAUSEA AND/OR VOMITING Last administered on 12/06/16 15:35; Admin Dose 4 MG; Start 11/17/16 at 08:30 Insulin Aspart (Novolog Insulin Pen) NOVOLOG *MILD* ALGORI... Q6 SC Last administered on 12/10/16 00:39; Admin Dose 1 UNIT; Start 11/17/16 at 12:00 Acetaminophen (Tylenol Liquid) 650 mg Q4H PRN GTB PAIN AND OR ELEVATED TEMP Last administered on 11/25/16 09:09; Admin Dose 650 MG; Start 11/21/16 at 09:00 Lansoprazole (Prevacid) 30 mg BID@,18 GTB Last administered on 12/11/16 05:58 ; Admin Dose 30 MG; Start 11/27/16 at 06:00 Sodium Phosphate (Neutra-Phos) 250 mg BID GTB Last administered on 12/11/16 08: 50; Admin Dose 250 MG; Start 12/08/16 at 10:00 Diphenhydramine HCl (Benadryl) 25 mg Q6H PRN IV ITCHING Last administered on 12:48; Admin Dose 25 MG; Start 12/09/16 at 16:30 JUSTIN LINARES Dec 11, 2016 14:14
[2016-12-11 15:13] LABS: ADD UMIC YES; URINE BILIRUBIN (Dip) 1+ (NEGATIVE); URINE BLOOD (Dip) 2+ (NEGATIVE); URINE COLOR DK. YELLOW (YELLOW); URINE GLUCOSE (Dip) NEGATIVE (NEGATIVE); URINE KETONES (Dip) NEGATIVE (NEGATIVE); URINE LEUKOCYTE ESTERASE (Dip) 2+ (NEGATIVE); URINE NITRITE (Dip) NEGATIVE (NEGATIVE); URINE TOTAL PROTEIN (Dip) 2+ (NEGATIVE); URINE UROBILINOGEN (Dip) 0.2 E.U./dL (0.1-1.0)
[2016-12-11] MEDS ORDERED: DIMETHICONE STICK TOP PRN (15:30)
[2016-12-11 15:38] LABS: BACTERIA,URINE MANY; ICTOTEST NEGATIVE (NEGATIVE); TRANSITIONAL EPI CELLS,URINE MODERATE
[2016-12-11] MEDS: ACETAMINOPHEN 650MG/20.3ML CUP GTB PRN (21:29)
[2016-12-12] VITALS (31 sets, daily range): BP systolic 96–131; BP diastolic 48–90; PULSE 87–108; RESP 17–40
[2016-12-12] MEDS: DIPHENHYDRAMINE 50 MG INJ IV PRN (00:59)
[2016-12-12] MEDS: LANSOPRAZOLE 30 MG CAP GTB SCH ×2 (05:13→18:27)
[2016-12-12] MEDS: INSULIN ASPART [NOVOLOG] 3 ML PEN SC SCH ×3 (06:11→18:27)
[2016-12-12 07:08] LABS: ADD SCAN DIFF NO
[2016-12-12 07:12] LABS: BASOPHIL # 0.1 10^3/ul (0.0-0.1); BASOPHILS % 0.5 % (0.0-2.0); EOSINOPHILS # 0.3 10^3/ul (0.0-0.5); EOSINOPHILS % 2.2 % (0.0-7.0); HEMATOCRIT 31.4 % (37.0-47.0); HEMOGLOBIN 9.8 g/dl (12.0-16.0); LYMPHOCYTES # 2.4 10^3/ul (0.8-2.9); LYMPHOCYTES % 18.7 % (15.0-51.0); MEAN CORPUSCULAR HEMOGLOBIN 28.8 pg (29.0-33.0); MEAN CORPUSCULAR HGB CONC 31.2 g/dl (32.0-37.0); MEAN CORPUSCULAR VOLUME 92.4 fl (82.0-101.0); MEAN PLATELET VOLUME 11.7 fl (7.4-10.4); MONOCYTE # 1.4 10^3/ul (0.3-0.9); MONOCYTES % 10.9 % (0.0-11.0); NEUTROPHIL # 8.6 10^3/ul (1.6-7.5); NEUTROPHILS % 66.8 % (39.0-77.0); NUCLEATED RED BLOOD CELLS% 0.2 /100WBC (0.0-0.0); PLATELET COUNT 338 10^3/UL (140-415); RED CELL DISTRIBUTION WIDTH 19.7 % (11.5-14.5); WHITE BLOOD COUNT 12.9 10^3/ul (4.8-10.8)
[2016-12-12 07:51] LABS: ALBUMIN 4.1 g/dl (3.3-4.9); ALBUMIN/GLOBULIN RATIO 0.87; CALCIUM 9.5 mg/dl (8.4-10.2); CREATININE 2.31 mg/dl (0.44-1.00); POTASSIUM 3.8 mmol/L (3.5-5.1); TOTAL PROTEIN 8.8 g/dl (6.1-8.1)
[2016-12-12] MEDS: HEPARIN 5,000 UNIT/0.5 ML VIAL SC SCH ×2 (09:00→20:47)
[2016-12-12] MEDS: NEUTRA-PHOS 250 MG PACKET GTB SCH ×2 (09:15→20:46)
--- NOTE | 2016-12-12 09:21 | PN ---
DATE: 12/09/2016 SUBJECTIVE: The patient is stable, no acute events overnight. No fevers, chills, nausea, or vomiti ng. The patient is scheduled for hemodialysis today. No other events noted. OBJECTIVE: VITAL SIGNS: Blood pressure 119/64, respirations 20, pulse 84, temperature 98.0. HEENT: Head is normocephalic. NECK: Supple. HEART: Regular rate. LUNGS: Show diminished breath sounds at base. ABDOMEN: Soft, nontender to palpation without rebound or guarding. EXTREMITIES: Negative for clubbing, cyanosis, or edema. DERMATOLOGIC: No rashes. MUSCULOSKELETAL: No joint effusions. NEUROLOGIC: No change in exam. MEDICATIONS: Reviewed. LABORATORY DATA: Has been reviewed. No new labs. ASSESSMENT AND PLAN: 1. Sepsis secondary to pneumonia, urinary tract infection. The patient has completed antibiotic co urse. Continue to monitor. 2. Anemia. Continue to monitor hemoglobin and hematocrit levels. Continue Epogen. 3. Ventilator dependent respiratory failure. Vent settings have been reviewed. ABG has been revie wed. Continue to monitor. 4. Dysphagia, status post percutaneous endoscopic gastrostomy. Continue tube feeding. 5. End-stage renal disease. The patient is dialysis dependent. Continue dialysis 3 times weekly. 6. Atrial fibrillation, rate controlled. Continue medical management. 7. Mineral bone disorder. Continue to monitor calcium and phosphorus levels. 8. Congestive heart failure. Continue current treatment plan. 9. Diabetes. Continue current insulin regimen. 10. History of breast cancer status post mastectomy 11. Encephalopathy, toxic metabolic. 12. Gastrointestinal and deep venous thrombosis prophylaxis. Continue proton pump inhibitor and he asia. DISPOSITION: The patient is pending transfer to subacute facility once insurance is cleared. If in surance does not allow transfer to subacute facility, may consider transferring to long-term facilit ies, i.e. [facility]. Case was discussed with case aide. Dictated By: CHARLIE ESPINOSA/NTS Conf#: [id number] DID#: [id number]
[2016-12-12] MEDS: IPRATROPIUM (HFA) 12.9 GM INHALER INH PRN ×2 (11:06→20:36)
[2016-12-12] MEDS: LEVALBUTEROL (HFA) 15 GM INHALER INH PRN ×2 (11:06→20:37)
--- NOTE | 2016-12-12 11:41 | PN ---
DATE: 12/12/2016 SUBJECTIVE: The patient is stable, no acute events overnight. No fevers, chills, nausea, vomiting, no shortness of breath. OBJECTIVE: VITAL SIGNS: Blood pressure is 103/56, respiration 32, pulse 92, temperature 98.6. HEENT: Head is normocephalic. NECK: Supple. HEART: Regular rate. LUNGS: Show diminished breath sounds at the base. ABDOMEN: Soft, nontender to palpation without rebound or guarding. EXTREMITIES: Negative for clubbing, cyanosis. No edema. DERMATOLOGIC: No rashes. MUSCULOSKELETAL: No joint effusions. NEUROLOGIC: No change in exam. MEDICATIONS: The patient's medications have been reviewed. LABORATORY DATA: Shows sodium 136, potassium 3.9, chloride 96, BUN 36, creatinine 2.31. White coun t 12.9, hemoglobin 9.8, hematocrit 31.4, platelet count is 338. IMAGING: Chest x-ray on December 11 shows atelectasis, unchanged. ASSESSMENT AND PLAN: 1. Sepsis secondary to pneumonia, urinary tract infection. The patient has completed antibiotic cou rse. The patient's white count has been trending up. Etiology is unclear. Repeat cultures have be en sent. Continue to monitor off antibiotics, follow up with infectious disease. 2. Anemia. Continue to monitor hemoglobin and hematocrit levels. Continue Epogen. 3. End-stage renal disease. The patient is on dialysis 3 times weekly. There is no evidence of re covery. Plan for dialysis again today for 3 hours, 2K bath, calcium 2.5. 4. Mineral bone disorder. Continue to monitor calcium and phosphorus levels. 5. Ventilator dependent respiratory failure. Vent settings have been reviewed. ABG has been revie wed. Continue to monitor. 6. Dysphagia status post PEG tube, tube feeding. 7. Atrial fibrillation, continue current medical management. 8. Congestive heart failure, stable. The patient appears euvolemic. Continue current treatment pl an 9. Diabetes, continue Accu-Cheks and sliding scale. 10. Encephalopathy, toxic metabolic. Continue to monitor. 11. History of breast cancer status post mastectomy. 12. Gastrointestinal and deep venous thrombosis prophylaxis. Continue proton pump inhibitor and he asia. Dictated By: CHARLIE BUSBY DO NR/NTS Conf#: [id number] DID#: [id number]
[2016-12-12] MEDS: ACETAMINOPHEN 650MG/20.3ML CUP GTB PRN (11:55)
--- NOTE | 2016-12-12 12:51 | CONS ---
Date/Time of Note Date/Time of Note DATE: 12/12/16 TIME: 12:50 Consult Date/Type/Reason Admit Date/Time November 15, 2016 at 06:52 Initial Consult Date 11/15/16 Type of Consultation: Pulmonary Ordering Provider: YAYO EDGAR DO Subjective patient appears comfortable no new events. Objective Vital Signs Date Time Temp Pulse Resp B/P Pulse Ox O2 Delivery O2 Flow Rate FiO2 12/12/16 12:47 108 12/12/16 11:36 98.0 30 119/68 97 12/12/16 11:07 40 Intake and Output 12/11/16 12/11/16 12/12/16 15:00 23:00 07:00 Intake Total 300 ml 850 ml 750 ml Output Total 2500 ml 100 ml Balance -2200 ml 850 ml 650 ml Exam PHYSICAL EXAMINATION GENERAL: Elderly lady comfortable at rest on mechanical ventilation VITAL SIGNS: see below. HEENT: Pupils equal, round, and reactive to light. Tracheostomy site clean and intact. CARDIAC: S1, S2, 1/6 systolic ejection murmur CHEST: Diminished air entry bilaterally. ABDOMEN: Mildly distended. Bowel sounds present no guarding or rebound EXTREMITIES: No cyanosis, clubbing edema +1 NEUROLOGIC: Generalized weakness Results/Medications Result Diagram: 12/12/16 0525 12/12/16 0525 Results 24 hrs Laboratory Tests Test 12/11/16 14:00 12/11/16 17:12 12/11/16 21:27 12/12/16 01:01 Urine Color DK. YELLOW Urine Clarity TURBID Urine pH 5.0 Urine Specific Adams 1.025 Urine Ketones NEGATIVE Urine Nitrite NEGATIVE Urine Bilirubin 1+ H Urine Ictotest NEGATIVE Urine Urobilinogen 0.2 E.U./dL Urine Leukocyte Esterase 2+ H Urine Microscopic RBC 10-25 Urine WBC Clumps MANY Urine Microscopic WBC >200 Urine Transitional Epithelial Cells MODERATE Urine Bacteria MANY Urine Yeast MANY Urine Hemoglobin 2+ H Urine Glucose NEGATIVE Urine Total Protein 2+ H Bedside Glucose 162 124 146 Test 12/12/16 05:25 12/12/16 05:28 12/12/16 11:54 White Blood Count 12.9 H Red Blood Count 3.40 L Hemoglobin 9.8 L Hematocrit 31.4 L Mean Corpuscular Volume 92.4 Mean Corpuscular Hemoglobin 28.8 L Mean Corpuscular Hemoglobin Concent 31.2 L Red Cell Distribution Width 19.7 H Platelet Count 338 Mean Platelet Volume 11.7 H Neutrophils % 66.8 Lymphocytes % 18.7 Monocytes % 10.9 Eosinophils % 2.2 Basophils % 0.5 Nucleated Red Blood Cells % 0.2 H Neutrophils # 8.6 H Lymphocytes # 2.4 Monocytes # 1.4 H Eosinophils # 0.3 Basophils # 0.1 Nucleated Red Blood Cells # 0.0 Sodium Level 136 Potassium Level 3.8 Chloride Level 96 L Carbon Dioxide Level 26 Anion Gap 18 H Blood Urea Nitrogen 36 H Creatinine 2.31 H Glucose Level 140 Calcium Level 9.5 Total Bilirubin 0.0 L Direct Bilirubin 0.00 Indirect Bilirubin 0.0 Aspartate Amino Transf (AST/SGOT) 23 Alanine Aminotransferase (ALT/SGPT) 21 Alkaline Phosphatase 100 Total Protein 8.8 H Albumin 4.1 Globulin 4.70 H Albumin/Globulin Ratio 0.87 Bedside Glucose 156 136 Medications Current Medications Heparin Sodium (Porcine) (Heparin (5000 Units/0.5 ml)) 5,000 unit Q12 SC Last administered on 12/11/16 21:38; Admin Dose 5,000 UNIT; Start 11/15/16 at 21:00 Miscellaneous Information 1 ea NOTE XX ; Start 11/16/16 at 01:30 Glucose (Glutose) 15 gm Q15M PRN PO DECREASED GLUCOSE; Start 11/16/16 at 01:30 Glucose (Glutose) 22.5 gm Q15M PRN PO DECREASED GLUCOSE; Start 11/16/16 at 01: 30 Dextrose (D50w Syringe) 25 ml Q15M PRN IV DECREASED GLUCOSE; Start 11/16/16 at 01:30 Dextrose (D50w Syringe) 50 ml Q15M PRN IV DECREASED GLUCOSE; Start 11/16/16 at 01:30 Glucagon (Glucagen) 1 mg Q15M PRN IM DECREASED GLUCOSE; Start 11/16/16 at 01:30 Glucose (Glutose) 15 gm Q15M PRN BUCCAL DECREASED GLUCOSE; Start 11/16/16 at 01 :30 Ondansetron HCl (Zofran Inj) 4 mg Q4H PRN IV NAUSEA AND/OR VOMITING Last administered on 12/06/16 15:35; Admin Dose 4 MG; Start 11/17/16 at 08:30 Insulin Aspart (Novolog Insulin Pen) NOVOLOG *MILD* ALGORI... Q6 SC Last administered on 12/12/16 06:11; Admin Dose 1 UNIT; Start 11/17/16 at 12:00 Acetaminophen (Tylenol Liquid) 650 mg Q4H PRN GTB PAIN AND OR ELEVATED TEMP Last administered on 12/12/16 11:55; Admin Dose 650 MG; Start 11/21/16 at 09:00 Lansoprazole (Prevacid) 30 mg BID@,18 GTB Last administered on 12/12/16 05:13 ; Admin Dose 30 MG; Start 11/27/16 at 06:00 Sodium Phosphate (Neutra-Phos) 250 mg BID GTB Last administered on 12/12/16 09: 15; Admin Dose 250 MG; Start 12/08/16 at 10:00 Diphenhydramine HCl (Benadryl) 25 mg Q6H PRN IV ITCHING Last administered on 00:59; Admin Dose 25 MG; Start 12/09/16 at 16:30 Dimethicone (Blistex Lip [place]) 1 applic Q2H PRN TOP DRY LIPS Last administered on 12/11/16 15:49; Admin Dose 1 APPLIC; Start 12/11/16 at 15:30 Assessment/Plan Chief Complaint/Hosp Course IMP: 1. UTI possibly line sepsis, improved. Resolved leukocytosis 2. Chronic renal failure, on hemodialysis. 3. Chronic respiratory failure, now requiring invasive mechanical ventilation 4. History of dementia 5. History of cardiac arrhythmia. Status post pacemaker placement. 6. History of anemia RECS 1. Continue mechanical ventilation, decrease FiO2 as tolerated, trial of SIMV 2. BD/CPT prn 3. TF/free H20 Discharge planning Problems: RHONDA BUENROSTRO MD, [facility] Dec 12, 2016 12:51
--- NOTE | 2016-12-12 18:50 | CONS ---
Date/Time of Note Date/Time of Note DATE: 12/12/16 TIME: 18:49 Assessment/Plan Assessment/Plan Chief Complaint/Hosp Course - recurrent low grade leukocytosis - s/p septic shock due to UTI +/- aspiration - resolved - s/p UTI due to VRE - Hx bacteremia due to S. hominis and Enterococcus - Hx tooth abscess treated with amoxicillin - Diarrhea;C diff negative (hx C diff 10/05/2016 & at [facility] earlier this year) - Hx candiduria (C. 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 - VDRF with tracheostomy - Hx ARDS & COPD - PAF with RVR, converted back to SR - PPM - Acute on chronic diastolic HF - PREMA on CKD requiring HD (previously on CRRT at [facility] 08/2016) - ACD - Hx DIC and thrombocytopenia - Acute toxic metabolic encephalopathy - improved a little - Dysphagia s/p PEG - Hx R breast CA s/p bilateral mastectomies - Hx DVT per records from [facility] - Critical care polyneuropathy confirmed by EMG at [facility] ~08/2016 - Major depression - Allergy to vancomycin and erythromycin with detail unknown - Acute respiratory distress 11/25/2016 likely d/t anxiety - improved - mild heat rash and decubitus ulcer of the buttocks recommendations: - f/u blood cultures from HD catheter and by phlebotomy, straight cath for urinalysis and urine culture if sufficient amount of urine is collected, CXR Problems: Consultation Date/Type/Reason Admit Date/Time November 15, 2016 at 06:52 Initial Consult Date 11/15/16 Type of Consultation: id Referring Provider: YAYO EDGAR DO Exam/Review of Systems Vital Signs Vitals Vital Signs Date Time Temp Pulse Resp B/P Pulse Ox O2 Delivery O2 Flow Rate FiO2 12/12/16 17:24 88 27 96 40 12/12/16 15:49 98.3 118/90 Intake and Output 12/11/16 12/11/16 12/12/16 15:00 23:00 07:00 Intake Total 300 ml 850 ml 750 ml Output Total 2500 ml 100 ml Balance -2200 ml 850 ml 650 ml Exam Constitutional: non-verbal, oriented, well developed Psych: nl mood/affect, no complaints Head: atraumatic, normocephalic Eyes: EOMI, PERRL, nl conjunctiva, nl lids, nl sclera Respiratory: clear to auscultation, normal air movement Cardiovascular: nl pulses, regular rate and rhythm Gastrointestinal: nl liver, spleen, non-tender, soft Results Result Diagram: 12/12/16 0525 12/12/16 0525 Results 24 hrs Laboratory Tests Test 12/11/16 21:27 12/12/16 01:01 12/12/16 05:25 12/12/16 05:28 Bedside Glucose 124 146 156 White Blood Count 12.9 H Red Blood Count 3.40 L Hemoglobin 9.8 L Hematocrit 31.4 L Mean Corpuscular Volume 92.4 Mean Corpuscular Hemoglobin 28.8 L Mean Corpuscular Hemoglobin Concent 31.2 L Red Cell Distribution Width 19.7 H Platelet Count 338 Mean Platelet Volume 11.7 H Neutrophils % 66.8 Lymphocytes % 18.7 Monocytes % 10.9 Eosinophils % 2.2 Basophils % 0.5 Nucleated Red Blood Cells % 0.2 H Neutrophils # 8.6 H Lymphocytes # 2.4 Monocytes # 1.4 H Eosinophils # 0.3 Basophils # 0.1 Nucleated Red Blood Cells # 0.0 Sodium Level 136 Potassium Level 3.8 Chloride Level 96 L Carbon Dioxide Level 26 Anion Gap 18 H Blood Urea Nitrogen 36 H Creatinine 2.31 H Glucose Level 140 Calcium Level 9.5 Total Bilirubin 0.0 L Direct Bilirubin 0.00 Indirect Bilirubin 0.0 Aspartate Amino Transf (AST/SGOT) 23 Alanine Aminotransferase (ALT/SGPT) 21 Alkaline Phosphatase 100 Total Protein 8.8 H Albumin 4.1 Globulin 4.70 H Albumin/Globulin Ratio 0.87 Test 12/12/16 11:54 12/12/16 18:23 Bedside Glucose 136 154 Medications Medications Current Medications Heparin Sodium (Porcine) (Heparin (5000 Units/0.5 ml)) 5,000 unit Q12 SC Last administered on 12/11/16t 21:38; Admin Dose 5,000 UNIT; Start 11/15/16 at 21:00 Miscellaneous Information 1 ea NOTE XX ; Start 11/16/16 at 01:30 Glucose (Glutose) 15 gm Q15M PRN PO DECREASED GLUCOSE; Start 11/16/16 at 01:30 Glucose (Glutose) 22.5 gm Q15M PRN PO DECREASED GLUCOSE; Start 11/16/16 at 01: 30 Dextrose (D50w Syringe) 25 ml Q15M PRN IV DECREASED GLUCOSE; Start 11/16/16 at 01:30 Dextrose (D50w Syringe) 50 ml Q15M PRN IV DECREASED GLUCOSE; Start 11/16/16 at 01:30 Glucagon (Glucagen) 1 mg Q15M PRN IM DECREASED GLUCOSE; Start 11/16/16 at 01:30 Glucose (Glutose) 15 gm Q15M PRN BUCCAL DECREASED GLUCOSE; Start 11/16/16 at 01 :30 Ondansetron HCl (Zofran Inj) 4 mg Q4H PRN IV NAUSEA AND/OR VOMITING Last administered on 12/06/16 15:35; Admin Dose 4 MG; Start 11/17/16 at 08:30 Insulin Aspart (Novolog Insulin Pen) NOVOLOG *MILD* ALGORI... Q6 SC Last administered on 12/12/16 18:27; Admin Dose 1 UNIT; Start 11/17/16 at 12:00 Acetaminophen (Tylenol Liquid) 650 mg Q4H PRN GTB PAIN AND OR ELEVATED TEMP Last administered on 12/12/16 11:55; Admin Dose 650 MG; Start 11/21/16 at 09:00 Lansoprazole (Prevacid) 30 mg BID@,18 GTB Last administered on 12/12/16 18:27 ; Admin Dose 30 MG; Start 11/27/16 at 06:00 Sodium Phosphate (Neutra-Phos) 250 mg BID GTB Last administered on 12/12/16 09: 15; Admin Dose 250 MG; Start 12/08/16 at 10:00 Diphenhydramine HCl (Benadryl) 25 mg Q6H PRN IV ITCHING Last administered on 00:59; Admin Dose 25 MG; Start 12/09/16 at 16:30 Dimethicone (Blistex Lip [place]) 1 applic Q2H PRN TOP DRY LIPS Last administered on 12/11/16 15:49; Admin Dose 1 APPLIC; Start 12/11/16 at 15:30 RUBY ROY MD Dec 12, 2016 18:50
[2016-12-12] MEDS ORDERED: EPOETIN 3000 UNITS/1 ML INJ (ESRD) SC SCH (20:30)
[2016-12-13] VITALS (25 sets, daily range): BP systolic 102–116; BP diastolic 53–60; PULSE 80–90; RESP 18–28
[2016-12-13] MEDS: INSULIN ASPART [NOVOLOG] 3 ML PEN SC SCH ×4 (00:11→17:59)
[2016-12-13] MEDS: LEVALBUTEROL (HFA) 15 GM INHALER INH PRN (01:28)
[2016-12-13] MEDS: IPRATROPIUM (HFA) 12.9 GM INHALER INH PRN (01:28)
[2016-12-13] MEDS: LANSOPRAZOLE 30 MG CAP GTB SCH ×2 (05:25→17:59)
[2016-12-13 07:35] LABS: ADD SCAN DIFF NO
[2016-12-13 07:43] LABS: BASOPHIL # 0.1 10^3/ul (0.0-0.1); BASOPHILS % 0.5 % (0.0-2.0); EOSINOPHILS # 0.3 10^3/ul (0.0-0.5); HEMATOCRIT 30.9 % (37.0-47.0); HEMOGLOBIN 9.5 g/dl (12.0-16.0); LYMPHOCYTES # 1.9 10^3/ul (0.8-2.9); LYMPHOCYTES % 17.1 % (15.0-51.0); MEAN CORPUSCULAR HEMOGLOBIN 28.5 pg (29.0-33.0); MEAN CORPUSCULAR HGB CONC 30.7 g/dl (32.0-37.0); MEAN CORPUSCULAR VOLUME 92.8 fl (82.0-101.0); MEAN PLATELET VOLUME 11.6 fl (7.4-10.4); MONOCYTE # 1.3 10^3/ul (0.3-0.9); MONOCYTES % 11.6 % (0.0-11.0); NEUTROPHIL # 7.6 10^3/ul (1.6-7.5); NEUTROPHILS % 67.1 % (39.0-77.0); NUCLEATED RED BLOOD CELLS% 0.4 /100WBC (0.0-0.0); PLATELET COUNT 305 10^3/UL (140-415); RED BLOOD COUNT 3.33 10^6/ul (4.20-5.40); RED CELL DISTRIBUTION WIDTH 19.7 % (11.5-14.5); WHITE BLOOD COUNT 11.3 10^3/ul (4.8-10.8)
[2016-12-13 08:10] LABS: CALCIUM 9.4 mg/dl (8.4-10.2); CREATININE 1.91 mg/dl (0.44-1.00); PHOSPHORUS 3.9 mg/dl (2.5-4.9)
--- NOTE | 2016-12-13 09:42 | PN ---
DATE: 12/13/2016 SUBJECTIVE: The patient is stable, no acute events overnight. No fevers, chills, nausea, vomiting. The patient had hemodialysis yesterday, tolerated it well. OBJECTIVE: VITAL SIGNS: Blood pressure 116/60, respirations 18, pulse 98, temperature 98.4. HEENT: Head is normocephalic. NECK: Supple. HEART: Regular rate. LUNGS: Show diminished breath sounds at the base. ABDOMEN: Soft, nontender to palpation. No rebound or guarding. EXTREMITIES: Negative for clubbing, cyanosis. No edema. DERMATOLOGIC: No rashes. MUSCULOSKELETAL: No joint effusions. NEUROLOGIC: No change in exam. MEDICATIONS: The patient's medications have been reviewed. LABORATORY DATA: Shows a white count 11.3, hemoglobin 9.5, hematocrit 29, platelet count 305. [place] um 140, potassium 4.0, chloride 100, BUN 29, creatinine 1.91. ASSESSMENT AND PLAN: 1. Sepsis secondary to pneumonia, urinary tract infection. The patient is completing an antibiotic course. The patient's white count has been fluctuating. Repeat cultures have been sent. Continue to monitor off antibiotics. Follow up with infectious disease. 2. Anemia. Continue to monitor hemoglobin and hematocrit levels. Continue Epogen. 3. End-stage renal disease. The patient had hemodialysis yesterday, tolerated it well. Plan for d ialysis tomorrow. 4. Mineral bone disorder. Continue to monitor calcium and phosphorus levels. 5. Ventilator-dependent respiratory failure. Vent settings have been reviewed. ABG has been revie wed. Continue to monitor. 6. Dysphagia status post percutaneous endoscopic gastrostomy. Continue tube feeding. Atrial fibri llation, continue current medical management. 7. Congestive heart failure. The patient appears euvolemic. Continue current medical management. 8. Diabetes. Continue Accu-Cheks and insulin sliding scale. 9. Encephalopathy, toxic metabolic, continue to monitor. 10. History of breast cancer status post mastectomy. 11. Gastrointestinal and deep venous thrombosis prophylaxis. Continue PPI and heparin. DISPOSITION: Please note I spoke yesterday with the patient's insurance advocating for transfer to a subacute facility with outpatient dialysis. I am waiting for the response by the insurance team. Dictated By: CHARLIE ESPINOSA/SEEMA Conf#: [id number] DID#: [id number]
[2016-12-13] MEDS: NEUTRA-PHOS 250 MG PACKET GTB SCH ×2 (09:59→21:51)
[2016-12-13] MEDS: HEPARIN 5,000 UNIT/0.5 ML VIAL SC SCH ×2 (10:07→21:54)
--- NOTE | 2016-12-13 12:15 | PN ---
DATE: 12/13/2016 CARDIOLOGY FOLLOWUP SUBJECTIVE: Discussed with the staff. Rhythm strip was reviewed. The patient remains in sinus rhy thm ____ patient is still on the vent. No report of chest pain or pressure. MEDICATIONS: Reviewed. PHYSICAL EXAMINATION: VITAL SIGNS: Temperature of 98, heart rate of 84, blood pressure 102/59, respiratory rate 18, satur ating 97%. HEENT: Normocephalic, atraumatic. ____. Status post trach, on the vent. CARDIOVASCULAR: Regular rate and rhythm, systolic murmur. PULMONARY: With no wheezes heard. Minimal rhonchi at the base. CHEST: Revealed right-sided mastectomy. ____ hemodialysis access in place. GASTROINTESTINAL: Soft, nontender. EXTREMITIES: With no significant edema. NEUROLOGIC: Awake, responds appropriately. PSYCHIATRIC: Appears to be anxious, otherwise pleasant. LABORATORY: WBC of 11.3, hemoglobin 9.5, platelets of 305. Sodium 140, potassium 4, BUN of 29, cre atinine 1.91, glucose of 137. ASSESSMENT AND PLAN: 1. Hypoxemic hypercapnic respiratory failure, status post tracheostomy, vent-dependent. 2. Paroxysmal atrial fibrillation, currently has remained in sinus rhythm. 3. Renal failure, on dialysis. 4. Sick-sinus syndrome status post permanent pacemaker, adjustment of the pacemaker was recently ruth prakash. 5. History of hypertension, currently stable. 6. Status post sepsis and shock. Blood pressure has improved. 7. Severe anemia, unable to anticoagulate. RECOMMENDATIONS: We will continue with the current cardiac care including dialysis. Dialysis will be continued and managed as per renal. Pulmonary care and respiratory care will be continued. Diab etic control as per internal medicine, will monitor on telemetry. Dictated By: KIAH GARCIA MD AV/SEEMA Conf#: [id number] DID#: [id number] CC: CHARLIE BUSBY DO;*EndCC*
--- NOTE | 2016-12-13 13:03 | CONS ---
Date/Time of Note Date/Time of Note DATE: 12/13/16 TIME: 13:01 Consult Date/Type/Reason Admit Date/Time November 15, 2016 at 06:52 Initial Consult Date 11/15/16 Type of Consultation: Pulmonary Ordering Provider: YAYO EDGAR DO Subjective Patient comfortable no new events Objective Vital Signs Date Time Temp Pulse Resp B/P Pulse Ox O2 Delivery O2 Flow Rate FiO2 12/13/16 12:00 85 12/13/16 11:35 23 95 40 12/13/16 11:04 98.0 102/59 Intake and Output 12/12/16 12/12/16 12/13/16 14:59 22:59 06:59 Intake Total 1150 ml 670 ml Output Total 500 ml Balance 650 ml 670 ml Exam PHYSICAL EXAMINATION GENERAL: Elderly lady on mechanical ventilation via tracheostomy VITAL SIGNS: see below. HEENT: Pupils equal, round, and reactive to light. Tracheostomy site clean and intact. CARDIAC: S1, S2, 1/6 systolic ejection murmur CHEST: Diminished air entry bilaterally. ABDOMEN: Mildly distended. Bowel sounds present no guarding or rebound EXTREMITIES: No cyanosis, clubbing edema +1 NEUROLOGIC: Generalized weakness Results/Medications Result Diagram: 12/13/16 0710 12/13/16 0710 Results 24 hrs Laboratory Tests Test 12/12/16 18:23 12/12/16 19:56 12/13/16 05:36 12/13/16 06:33 Bedside Glucose 154 145 127 Lab Scanned Report BLOOD TRANSFUSION Test 12/13/16 07:10 White Blood Count 11.3 H Red Blood Count 3.33 L Hemoglobin 9.5 L Hematocrit 30.9 L Mean Corpuscular Volume 92.8 Mean Corpuscular Hemoglobin 28.5 L Mean Corpuscular Hemoglobin Concent 30.7 L Red Cell Distribution Width 19.7 H Platelet Count 305 Mean Platelet Volume 11.6 H Neutrophils % 67.1 Lymphocytes % 17.1 Monocytes % 11.6 H Eosinophils % 3.0 Basophils % 0.5 Nucleated Red Blood Cells % 0.4 H Neutrophils # 7.6 H Lymphocytes # 1.9 Monocytes # 1.3 H Eosinophils # 0.3 Basophils # 0.1 Nucleated Red Blood Cells # 0.0 Sodium Level 140 Potassium Level 4.0 Chloride Level 100 Carbon Dioxide Level 27 Anion Gap 17 H Blood Urea Nitrogen 29 H Creatinine 1.91 H Glucose Level 137 Calcium Level 9.4 Phosphorus Level 3.9 Magnesium Level 2.0 Medications Current Medications Heparin Sodium (Porcine) (Heparin (5000 Units/0.5 ml)) 5,000 unit Q12 SC Last administered on 12/13/16 10:07; Admin Dose 5,000 UNIT; Start 11/15/16 at 21:00 Miscellaneous Information 1 ea NOTE XX ; Start 11/16/16 at 01:30 Glucose (Glutose) 15 gm Q15M PRN PO DECREASED GLUCOSE; Start 11/16/16 at 01:30 Glucose (Glutose) 22.5 gm Q15M PRN PO DECREASED GLUCOSE; Start 11/16/16 at 01: 30 Dextrose (D50w Syringe) 25 ml Q15M PRN IV DECREASED GLUCOSE; Start 11/16/16 at 01:30 Dextrose (D50w Syringe) 50 ml Q15M PRN IV DECREASED GLUCOSE; Start 11/16/16 at 01:30 Glucagon (Glucagen) 1 mg Q15M PRN IM DECREASED GLUCOSE; Start 11/16/16 at 01:30 Glucose (Glutose) 15 gm Q15M PRN BUCCAL DECREASED GLUCOSE; Start 11/16/16 at 01 :30 Ondansetron HCl (Zofran Inj) 4 mg Q4H PRN IV NAUSEA AND/OR VOMITING Last administered on 12/06/16 15:35; Admin Dose 4 MG; Start 11/17/16 at 08:30 Insulin Aspart (Novolog Insulin Pen) NOVOLOG *MILD* ALGORI... Q6 SC Last administered on 12/13/16 00:11; Admin Dose 1 UNIT; Start 11/17/16 at 12:00 Acetaminophen (Tylenol Liquid) 650 mg Q4H PRN GTB PAIN AND OR ELEVATED TEMP Last administered on 12/12/16 11:55; Admin Dose 650 MG; Start 11/21/16 at 09:00 Lansoprazole (Prevacid) 30 mg BID@18 GTB Last administered on 12/13/16 05:25 ; Admin Dose 30 MG; Start 11/27/16 at 06:00 Sodium Phosphate (Neutra-Phos) 250 mg BID GTB Last administered on 12/13/16 09: 59; Admin Dose 250 MG; Start 12/08/16 at 10:00 Diphenhydramine HCl (Benadryl) 25 mg Q6H PRN IV ITCHING Last administered on 00:59; Admin Dose 25 MG; Start 12/09/16 at 16:30 Dimethicone (Blistex Lip [place]) 1 applic Q2H PRN TOP DRY LIPS Last administered on 12/11/16 15:49; Admin Dose 1 APPLIC; Start 12/11/16 at 15:30 Assessment/Plan Chief Complaint/Hosp Course IMP: 1. UTI possibly line sepsis, improved. Resolved leukocytosis 2. Chronic renal failure, on hemodialysis. 3. Chronic respiratory failure, now requiring invasive mechanical ventilation 4. History of dementia 5. History of cardiac arrhythmia. Status post pacemaker placement. 6. History of anemia RECS 1. Continue mechanical ventilation, SIMV if tolerated 2. BD/CPT prn 3. TF/free H20 Discharge planning Problems: RHONDA BUENROSTRO MD, [facility] Dec 13, 2016 13:03
--- NOTE | 2016-12-13 16:41 | CONS ---
Date/Time of Note Date/Time of Note DATE: 12/13/16 TIME: 16:40 Assessment/Plan Assessment/Plan Chief Complaint/Hosp Course - recurrent low grade leukocytosis - s/p septic shock due to UTI +/- aspiration - resolved - s/p UTI due to VRE - Hx bacteremia due to S. hominis and Enterococcus - Hx tooth abscess treated with amoxicillin - Diarrhea;C diff negative (hx C diff 10/05/2016 & at [facility] earlier this year) - Hx candiduria (C. 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 - VDRF with tracheostomy - Hx ARDS & COPD - PAF with RVR, converted back to SR - PPM - Acute on chronic diastolic HF - PREMA on CKD requiring HD (previously on CRRT at [facility] 08/2016) - ACD - Hx DIC and thrombocytopenia - Acute toxic metabolic encephalopathy - improved a little - Dysphagia s/p PEG - Hx R breast CA s/p bilateral mastectomies - Hx DVT per records from [facility] - Critical care polyneuropathy confirmed by EMG at [facility] ~08/2016 - Major depression - Allergy to vancomycin and erythromycin with detail unknown - Acute respiratory distress 11/25/2016 likely d/t anxiety - improved - mild heat rash and decubitus ulcer of the buttocks - ucx with enterococcus recommendations: -monitor wbc count and fever curve off abx Problems: Consultation Date/Type/Reason Admit Date/Time November 15, 2016 at 06:52 Initial Consult Date 11/15/16 Type of Consultation: id Referring Provider: YAYO EDGAR DO Exam/Review of Systems Vital Signs Vitals Vital Signs Date Time Temp Pulse Resp B/P Pulse Ox O2 Delivery O2 Flow Rate FiO2 12/13/16 16:00 80 12/13/16 15:18 97.4 18 109/56 98 12/13/16 11:35 40 Intake and Output 12/12/16 12/12/16 12/13/16 15:00 23:00 07:00 Intake Total 1150 ml 670 ml Output Total 500 ml Balance 650 ml 670 ml Exam Constitutional: non-verbal Psych: no complaints Head: atraumatic, normocephalic Respiratory: clear to auscultation, diminished breath sounds Cardiovascular: regular rate and rhythm Gastrointestinal: soft Results Result Diagram: 12/13/16 0710 12/13/16 0710 Results 24 hrs Laboratory Tests Test 12/12/16 18:23 12/12/16 19:56 12/13/16 05:36 12/13/16 06:33 Bedside Glucose 154 145 127 Lab Scanned Report BLOOD TRANSFUSION Test 12/13/16 07:10 12/13/16 13:44 White Blood Count 11.3 H Red Blood Count 3.33 L Hemoglobin 9.5 L Hematocrit 30.9 L Mean Corpuscular Volume 92.8 Mean Corpuscular Hemoglobin 28.5 L Mean Corpuscular Hemoglobin Concent 30.7 L Red Cell Distribution Width 19.7 H Platelet Count 305 Mean Platelet Volume 11.6 H Neutrophils % 67.1 Lymphocytes % 17.1 Monocytes % 11.6 H Eosinophils % 3.0 Basophils % 0.5 Nucleated Red Blood Cells % 0.4 H Neutrophils # 7.6 H Lymphocytes # 1.9 Monocytes # 1.3 H Eosinophils # 0.3 Basophils # 0.1 Nucleated Red Blood Cells # 0.0 Sodium Level 140 Potassium Level 4.0 Chloride Level 100 Carbon Dioxide Level 27 Anion Gap 17 H Blood Urea Nitrogen 29 H Creatinine 1.91 H Glucose Level 137 Calcium Level 9.4 Phosphorus Level 3.9 Magnesium Level 2.0 Bedside Glucose 131 Medications Medications Current Medications Heparin Sodium (Porcine) (Heparin (5000 Units/0.5 ml)) 5,000 unit Q12 SC Last administered on 12/13/16t 10:07; Admin Dose 5,000 UNIT; Start 11/15/16 at 21:00 Miscellaneous Information 1 ea NOTE XX ; Start 11/16/16 at 01:30 Glucose (Glutose) 15 gm Q15M PRN PO DECREASED GLUCOSE; Start 11/16/16 at 01:30 Glucose (Glutose) 22.5 gm Q15M PRN PO DECREASED GLUCOSE; Start 11/16/16 at 01: 30 Dextrose (D50w Syringe) 25 ml Q15M PRN IV DECREASED GLUCOSE; Start 11/16/16 at 01:30 Dextrose (D50w Syringe) 50 ml Q15M PRN IV DECREASED GLUCOSE; Start 11/16/16 at 01:30 Glucagon (Glucagen) 1 mg Q15M PRN IM DECREASED GLUCOSE; Start 11/16/16 at 01:30 Glucose (Glutose) 15 gm Q15M PRN BUCCAL DECREASED GLUCOSE; Start 11/16/16 at 01 :30 Ondansetron HCl (Zofran Inj) 4 mg Q4H PRN IV NAUSEA AND/OR VOMITING Last administered on 12/06/16 15:35; Admin Dose 4 MG; Start 11/17/16 at 08:30 Insulin Aspart (Novolog Insulin Pen) NOVOLOG *MILD* ALGORI... Q6 SC Last administered on 12/13/16 00:11; Admin Dose 1 UNIT; Start 11/17/16 at 12:00 Acetaminophen (Tylenol Liquid) 650 mg Q4H PRN GTB PAIN AND OR ELEVATED TEMP Last administered on 12/12/16 11:55; Admin Dose 650 MG; Start 11/21/16 at 09:00 Lansoprazole (Prevacid) 30 mg BID@,18 GTB Last administered on 12/13/16 05:25 ; Admin Dose 30 MG; Start 11/27/16 at 06:00 Sodium Phosphate (Neutra-Phos) 250 mg BID GTB Last administered on 12/13/16 09: 59; Admin Dose 250 MG; Start 12/08/16 at 10:00 Diphenhydramine HCl (Benadryl) 25 mg Q6H PRN IV ITCHING Last administered on 00:59; Admin Dose 25 MG; Start 12/09/16 at 16:30 Dimethicone (Blistex Lip [place]) 1 applic Q2H PRN TOP DRY LIPS Last administered on 12/11/16 15:49; Admin Dose 1 APPLIC; Start 12/11/16 at 15:30 RUBY ROY MD Dec 13, 2016 16:41
[2016-12-14] VITALS (22 sets, daily range): BP systolic 94–117; BP diastolic 45–66; PULSE 74–86; RESP 18–26
[2016-12-14] MEDS: LANSOPRAZOLE 30 MG CAP GTB SCH ×2 (05:19→18:09)
[2016-12-14] MEDS: INSULIN ASPART [NOVOLOG] 3 ML PEN SC SCH ×4 (06:00→18:00)
[2016-12-14 07:05] LABS: ADD SCAN DIFF NO
[2016-12-14 07:14] LABS: BASOPHIL # 0.1 10^3/ul (0.0-0.1); BASOPHILS % 0.6 % (0.0-2.0); EOSINOPHILS # 0.5 10^3/ul (0.0-0.5); EOSINOPHILS % 4.5 % (0.0-7.0); HEMOGLOBIN 9.3 g/dl (12.0-16.0); LYMPHOCYTES # 1.8 10^3/ul (0.8-2.9); LYMPHOCYTES % 17.4 % (15.0-51.0); MEAN CORPUSCULAR VOLUME 93.4 fl (82.0-101.0); MEAN PLATELET VOLUME 11.7 fl (7.4-10.4); MONOCYTE # 1.2 10^3/ul (0.3-0.9); MONOCYTES % 11.1 % (0.0-11.0); NEUTROPHIL # 6.8 10^3/ul (1.6-7.5); NEUTROPHILS % 65.9 % (39.0-77.0); PLATELET COUNT 291 10^3/UL (140-415); RED BLOOD COUNT 3.32 10^6/ul (4.20-5.40); RED CELL DISTRIBUTION WIDTH 20.2 % (11.5-14.5); WHITE BLOOD COUNT 10.3 10^3/ul (4.8-10.8)
[2016-12-14] MEDS: NEUTRA-PHOS 250 MG PACKET GTB SCH (09:00)
--- NOTE | 2016-12-14 09:33 | PN ---
DATE: 12/14/2016 SUBJECTIVE: The patient is stable. No acute events overnight. No fevers, chills, nausea, vomiting . Patient scheduled for hemodialysis today. No other events noted. OBJECTIVE: VITAL SIGNS: Blood pressure is ____, respiration 18, pulse 83, temperature 97.7. HEENT: Head is normocephalic. NECK: Supple. HEART: Regular rate. LUNGS: Show diminished sounds at base. ABDOMEN: Soft, nontender to palpation. No rebound or guarding. EXTREMITIES: Negative for clubbing, cyanosis. No edema. DERMATOLOGIC: No rashes. MUSCULOSKELETAL: No joint effusions. NEUROLOGIC: No change in exam. MEDICATIONS: The patient's medications have been reviewed. LABORATORY DATA: Shows repeat blood cultures negative. Urine culture positive enterococcus. The p atient has a white count 10.3, hemoglobin 9.3, hematocrit 31.0, platelet count 291. ASSESSMENT AND PLAN: 1. Sepsis secondary to pneumonia, urinary tract infection. Patient is completing antibiotic course . The patient's white count has been fluctuating, now normalized. Repeat blood cultures have been negative. Urine culture is positive for enterococcus. Unclear if this is colonization or infection . Will defer to infectious disease for final recommendations. 2. End-stage renal disease. We will continue hemodialysis. Plan for dialysis today for 3 hours, _ ___ bath, calcium 2.5. Will ultrafiltrate as tolerated. 3. Anemia. Continue to monitor hemoglobin and hematocrit levels. Continue Epogen. 4. ____ levels. 5. Ventilator dependent respiratory failure. Vent settings have been reviewed. ABG has been revie wed. Continue to monitor. 6. Dysphagia, status post tube feeding. 7. Atrial fibrillation, currently in sinus rhythm. Continue medical management. 8. Congestive heart failure. The patient is euvolemic. Continue medical management. 9. Diabetes. Continue insulin sliding scale. 10. Encephalopathy. Etiology is toxic metabolic. Continue to monitor. 11. History of breast cancer, status post mastectomy. 12. Gastrointestinal and deep venous thrombosis prophylaxis. Continue proton pump inhibitors and h eparin. DISPOSITION: Anticipate possible discharge to half-way facility today pending final clearanc e by infectious disease and consultants. Dictated By: CHARLIE ESPINOSA/SEEMA Conf#: [id number] DID#: [id number]
[2016-12-14] MEDS ORDERED: EPOETIN 4000 UNITS/1 ML INJ (ESRD) SC SCH (10:00)
[2016-12-14] MEDS: HEPARIN 5,000 UNIT/0.5 ML VIAL SC SCH (10:50)
--- NOTE | 2016-12-14 11:37 | CONS ---
Date/Time of Note Date/Time of Note DATE: 12/14/16 TIME: 11:36 Consult Date/Type/Reason Admit Date/Time November 15, 2016 at 06:52 Initial Consult Date 11/15/16 Type of Consultation: Pulmonary Ordering Provider: YAYO EDGAR DO Subjective Patient remains stable following ventilator adjustment Objective Vital Signs Date Time Temp Pulse Resp B/P Pulse Ox O2 Delivery O2 Flow Rate FiO2 12/14/16 11:00 98.4 80 18 109/60 99 12/14/16 08:59 50 Intake and Output 12/13/16 12/13/16 12/14/16 14:59 22:59 06:59 Intake Total 620 ml 620 ml Balance 620 ml 620 ml Exam PHYSICAL EXAMINATION GENERAL: Elderly lady on mechanical ventilation via tracheostomy VITAL SIGNS: see below. HEENT: Pupils equal, round, and reactive to light. Tracheostomy site clean and intact. CARDIAC: S1, S2, 1/6 systolic ejection murmur CHEST: Diminished air entry bilaterally. ABDOMEN: Mildly distended. Bowel sounds present no guarding or rebound EXTREMITIES: No cyanosis, clubbing edema +1 NEUROLOGIC: Generalized weakness Results/Medications Result Diagram: 12/14/16 0610 12/13/16 0710 Results 24 hrs Laboratory Tests Test 12/13/16 13:44 12/13/16 17:49 12/13/16 23:52 12/14/16 05:21 Bedside Glucose 131 129 128 125 Test 12/14/16 06:10 White Blood Count 10.3 Red Blood Count 3.32 L Hemoglobin 9.3 L Hematocrit 31.0 L Mean Corpuscular Volume 93.4 Mean Corpuscular Hemoglobin 28.0 L Mean Corpuscular Hemoglobin Concent 30.0 L Red Cell Distribution Width 20.2 H Platelet Count 291 Mean Platelet Volume 11.7 H Neutrophils % 65.9 Lymphocytes % 17.4 Monocytes % 11.1 H Eosinophils % 4.5 Basophils % 0.6 Nucleated Red Blood Cells % 0.0 Neutrophils # 6.8 Lymphocytes # 1.8 Monocytes # 1.2 H Eosinophils # 0.5 Basophils # 0.1 Nucleated Red Blood Cells # 0.0 Medications Current Medications Heparin Sodium (Porcine) (Heparin (5000 Units/0.5 ml)) 5,000 unit Q12 SC Last administered on 12/14/16t 10:50; Admin Dose 5,000 UNIT; Start 11/15/16 at 21:00 Miscellaneous Information 1 ea NOTE XX ; Start 11/16/16 at 01:30 Glucose (Glutose) 15 gm Q15M PRN PO DECREASED GLUCOSE; Start 11/16/16 at 01:30 Glucose (Glutose) 22.5 gm Q15M PRN PO DECREASED GLUCOSE; Start 11/16/16 at 01: 30 Dextrose (D50w Syringe) 25 ml Q15M PRN IV DECREASED GLUCOSE; Start 11/16/16 at 01:30 Dextrose (D50w Syringe) 50 ml Q15M PRN IV DECREASED GLUCOSE; Start 11/16/16 at 01:30 Glucagon (Glucagen) 1 mg Q15M PRN IM DECREASED GLUCOSE; Start 11/16/16 at 01:30 Glucose (Glutose) 15 gm Q15M PRN BUCCAL DECREASED GLUCOSE; Start 11/16/16 at 01 :30 Ondansetron HCl (Zofran Inj) 4 mg Q4H PRN IV NAUSEA AND/OR VOMITING Last administered on 12/06/16 15:35; Admin Dose 4 MG; Start 11/17/16 at 08:30 Insulin Aspart (Novolog Insulin Pen) NOVOLOG *MILD* ALGORI... Q6 SC Last administered on 12/13/16 00:11; Admin Dose 1 UNIT; Start 11/17/16 at 12:00 Acetaminophen (Tylenol Liquid) 650 mg Q4H PRN GTB PAIN AND OR ELEVATED TEMP Last administered on 12/12/16 11:55; Admin Dose 650 MG; Start 11/21/16 at 09:00 Lansoprazole (Prevacid) 30 mg BID@18 GTB Last administered on 12/14/16 05:19 ; Admin Dose 30 MG; Start 11/27/16 at 06:00 Sodium Phosphate (Neutra-Phos) 250 mg BID GTB Last administered on 12/13/16 21: 51; Admin Dose 250 MG; Start 12/08/16 at 10:00 Diphenhydramine HCl (Benadryl) 25 mg Q6H PRN IV ITCHING Last administered on 00:59; Admin Dose 25 MG; Start 12/09/16 at 16:30 Dimethicone (Blistex Lip [place]) 1 applic Q2H PRN TOP DRY LIPS Last administered on 12/11/16t 15:49; Admin Dose 1 APPLIC; Start 12/11/16 at 15:30 Assessment/Plan Chief Complaint/Hosp Course IMP: 1. UTI possibly line sepsis, improved. Resolved leukocytosis 2. Chronic renal failure, on hemodialysis. 3. Chronic respiratory failure, continue to decrease support currently on SIMV 4. History of dementia 5. History of cardiac arrhythmia. Status post pacemaker placement. 6. History of anemia RECS 1. Continue mechanical ventilation, SIMV if tolerated, will attempt to cool aerosol trial soon if remains stable 2. BD/CPT prn 3. TF/free H20 Discharge planning Problems: RHONDA BUENROSTRO MD, [facility] Dec 14, 2016 11:37
--- NOTE | 2016-12-14 15:40 | CONS ---
Date/Time of Note Date/Time of Note DATE: 12/14/16 TIME: 15:27 Consult Date/Type/Reason Admit Date/Time November 15, 2016 at 06:52 Initial Consult Date 11/15/16 Type of Consultation: Infectious Disease f/u Ordering Provider: YAYO EDGAR DO Subjective mouthed out fine and bored Objective Vital Signs Date Time Temp Pulse Resp B/P Pulse Ox O2 Delivery O2 Flow Rate FiO2 12/14/16 12:44 79 12/14/16 11:00 98.4 18 109/60 99 12/14/16 08:59 50 Intake and Output 12/13/16 12/13/16 12/14/16 14:59 22:59 06:59 Intake Total 620 ml 620 ml Balance 620 ml 620 ml Exam Constitutional: well developed female lying in bed in no acute distress, non- verbal but makes needs known by mouthing out words, tracheostomy and ventilator supported Head: wnl Eyes: nl conjunctiva, nl lids Neck: tracheostomy in place Respiratory: scattered rhonchi Cardiovascular: regular rate and rhythm, palpable pulses Gastrointestinal: non-tender, non-distended GT in place with tube feeding infusing Musculoskeletal: nl extremities to inspection Extremities: warm, dry, no edema and moves all 4 extremities on command 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: awake and alert Skin: warm and dry, no rash or lesions Results/Medications Result Diagram: 12/14/16 0610 12/13/16 0710 Results 24 hrs Laboratory Tests Test 12/13/16 17:49 12/13/16 23:52 12/14/16 05:21 12/14/16 06:10 Bedside Glucose 129 128 125 White Blood Count 10.3 Red Blood Count 3.32 L Hemoglobin 9.3 L Hematocrit 31.0 L Mean Corpuscular Volume 93.4 Mean Corpuscular Hemoglobin 28.0 L Mean Corpuscular Hemoglobin Concent 30.0 L Red Cell Distribution Width 20.2 H Platelet Count 291 Mean Platelet Volume 11.7 H Neutrophils % 65.9 Lymphocytes % 17.4 Monocytes % 11.1 H Eosinophils % 4.5 Basophils % 0.6 Nucleated Red Blood Cells % 0.0 Neutrophils # 6.8 Lymphocytes # 1.8 Monocytes # 1.2 H Eosinophils # 0.5 Basophils # 0.1 Nucleated Red Blood Cells # 0.0 Test 12/14/16 12:14 Bedside Glucose 121 Medications Current Medications Heparin Sodium (Porcine) (Heparin (5000 Units/0.5 ml)) 5,000 unit Q12 SC Last administered on 12/14/16 10:50; Admin Dose 5,000 UNIT; Start 11/15/16 at 21:00 Miscellaneous Information 1 ea NOTE XX ; Start 11/16/16 at 01:30 Glucose (Glutose) 15 gm Q15M PRN PO DECREASED GLUCOSE; Start 11/16/16 at 01:30 Glucose (Glutose) 22.5 gm Q15M PRN PO DECREASED GLUCOSE; Start 11/16/16 at 01: 30 Dextrose (D50w Syringe) 25 ml Q15M PRN IV DECREASED GLUCOSE; Start 11/16/16 at 01:30 Dextrose (D50w Syringe) 50 ml Q15M PRN IV DECREASED GLUCOSE; Start 11/16/16 at 01:30 Glucagon (Glucagen) 1 mg Q15M PRN IM DECREASED GLUCOSE; Start 11/16/16 at 01:30 Glucose (Glutose) 15 gm Q15M PRN BUCCAL DECREASED GLUCOSE; Start 11/16/16 at 01 :30 Ondansetron HCl (Zofran Inj) 4 mg Q4H PRN IV NAUSEA AND/OR VOMITING Last administered on 12/06/16 15:35; Admin Dose 4 MG; Start 11/17/16 at 08:30 Insulin Aspart (Novolog Insulin Pen) NOVOLOG *MILD* ALGORI... Q6 SC Last administered on 12/13/16 00:11; Admin Dose 1 UNIT; Start 11/17/16 at 12:00 Acetaminophen (Tylenol Liquid) 650 mg Q4H PRN GTB PAIN AND OR ELEVATED TEMP Last administered on 12/12/16 11:55; Admin Dose 650 MG; Start 11/21/16 at 09:00 Lansoprazole (Prevacid) 30 mg BID@,18 GTB Last administered on 12/14/16 05:19 ; Admin Dose 30 MG; Start 11/27/16 at 06:00 Sodium Phosphate (Neutra-Phos) 250 mg BID GTB Last administered on 12/13/16 21: 51; Admin Dose 250 MG; Start 12/08/16 at 10:00 Diphenhydramine HCl (Benadryl) 25 mg Q6H PRN IV ITCHING Last administered on 00:59; Admin Dose 25 MG; Start 12/09/16 at 16:30 Dimethicone (Blistex Lip [place]) 1 applic Q2H PRN TOP DRY LIPS Last administered on 12/11/16 15:49; Admin Dose 1 APPLIC; Start 12/11/16 at 15:30 Assessment/Plan Chief Complaint/Hosp Course - recurrent low grade leukocytosis - s/p septic shock due to UTI +/- aspiration - resolved - s/p UTI due to VRE - Hx bacteremia due to S. hominis and Enterococcus - Hx tooth abscess treated with amoxicillin - Diarrhea;C diff negative (hx C diff 10/05/2016 & at [facility] earlier this year) - Hx candiduria (C. 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 Rouse Problems: HAIR VILLELA Dec 14, 2016 15:37
== END 2016-12-14 19:30 | DRG 870 ==
LOC: E/R 00:13 → TEL 06:52
PROVIDERS: ADMIT Internal Medicine Nephrology; ATTEND Internal Medicine Nephrology
PROC: 5A1955Z Respiratory Ventilation, Greater than 96 Consecutive Hours (ICD-10-PCS; principal; 2016-11-15)
PROC: 5A1D60Z (ICD-10-PCS; 2016-11-16)
PROC: 30233N1 Transfusion of Nonautologous Red Blood Cells into Peripheral Vein, Percutaneous Approach (ICD-10-PCS; 2016-11-17)
PROC: 4A033R1 Measurement of Arterial Saturation, Peripheral, Percutaneous Approach (ICD-10-PCS; 2016-11-23)
DX: A41.9 Sepsis, unspecified organism (principal); N17.0 Acute kidney failure with tubular necrosis; R65.21 Severe sepsis with septic shock; G92 Toxic encephalopathy; G62.81 Critical illness polyneuropathy; J69.0 Pneumonitis due to inhalation of food and vomit; I50.33 Acute on chronic diastolic (congestive) heart failure; J96.11 Chronic respiratory failure with hypoxia; N18.6 End stage renal disease; I13.2 Hypertensive heart and chronic kidney disease with heart failure and with stage 5 chronic kidney disease, or end stage renal disease; Z99.11 Dependence on respirator [ventilator] status; N39.0 Urinary tract infection, site not specified; E87.2 Acidosis; J96.12 Chronic respiratory failure with hypercapnia; R13.10 Dysphagia, unspecified; E11.22 Type 2 diabetes mellitus with diabetic chronic kidney disease; I48.0 Paroxysmal atrial fibrillation; D63.1 Anemia in chronic kidney disease; R19.7 Diarrhea, unspecified; B95.2 Enterococcus as the cause of diseases classified elsewhere; F03.90 Unspecified dementia, unspecified severity, without behavioral disturbance, psychotic disturbance, mood disturbance, and anxiety; F32.9 Major depressive disorder, single episode, unspecified; L74.0 Miliaria rubra; L89.309 Pressure ulcer of unspecified buttock, unspecified stage; E87.6 Hypokalemia; Z93.0 Tracheostomy status; Z93.1 Gastrostomy status; Z99.2 Dependence on renal dialysis; Z90.13 Acquired absence of bilateral breasts and nipples; Z95.0 Presence of cardiac pacemaker; Z85.3 Personal history of malignant neoplasm of breast
CPT/HCPCS: 36415; 36430; 36600; 70450; 71010; 80048; 80053; 80162; 81001; 81003; 82270; 82550; 82728; 82803; 82962; 83540; 83605; 83735; 84075; 84100; 84145; 84439; 84443; 84484; 85014; 85018; 85025; 85610; 85730; 86704; 86709; 86803; 86850; 86900; 86901; 86920; 87040; 87045; 87075; 87081; 87086; 87340; 90935; 92526; 92610; 93005; 93306; 94002; 94003; 94640; 94664; 96365; 96366; 96368; 97003; 97110; 97161; 97167; 97530; 97535; J0886; J1200; J1644; J1815; J2060; J2405; J2543; J2997; J7030; J7040; J7050; P9016; Q4081

== ENCOUNTER 2016-12-18 14:34 | Emergency (ER) | payer BC ==
[~2016-12-18] VITALS: Ht 167.6 cm; Wt 72.7 kg
[~2016-12-18 14:34] MED LIST: ACET160O41 GTB; ALBU2.5V3 NEB; AMIO200T2 GTB; BISA5TAB6 GTB; ESCI5TAB GTB; LACT1CAP57 GTB; LANS30CA GTB; METO-407 GTB; MULTI GTB; MYL80 GTB; RISE150T3 GTB
[2016-12-18] MEDS ORDERED: SOD CHLORIDE 0.9% 1,000 ML IV STA ×2 (14:41)
[2016-12-18] MEDS ORDERED: CEFEPIME 2GM/50 ML (PMX) 50 ML IVPB STA (14:41)
[2016-12-18 14:50] VITALS: Ht 167.6 cm; Wt 72.7 kg
[2016-12-18] MEDS ORDERED: BEN25 GTB (15:00)
[2016-12-18] MEDS ORDERED: IPRA3AMP INHALATION ×2 (15:01→15:02)
[2016-12-18] MEDS ORDERED: HEPA500021 IJ (15:03)
[2016-12-18] MEDS ORDERED: GLUC1KIT IJ (15:03)
[2016-12-18] MEDS ORDERED: EPOE40002 SC (15:06)
[2016-12-18] MEDS ORDERED: [UNRECOGNIZED DRUG - OTHER] IV (15:09)
[2016-12-18 15:12] LABS: ADD SCAN DIFF NO
[2016-12-18 15:13] LABS: BASOPHIL # 0.1 10^3/ul (0.0-0.1); BASOPHILS % 0.5 % (0.0-2.0); EOSINOPHILS # 0.4 10^3/ul (0.0-0.5); EOSINOPHILS % 3.3 % (0.0-7.0); HEMATOCRIT 35.4 % (37.0-47.0); LYMPHOCYTES # 2.1 10^3/ul (0.8-2.9); LYMPHOCYTES % 19.2 % (15.0-51.0); MEAN CORPUSCULAR HEMOGLOBIN 28.5 pg (29.0-33.0); MEAN CORPUSCULAR HGB CONC 31.1 g/dl (32.0-37.0); MEAN CORPUSCULAR VOLUME 91.7 fl (82.0-101.0); MEAN PLATELET VOLUME 10.6 fl (7.4-10.4); MONOCYTES % 9.2 % (0.0-11.0); NEUTROPHIL # 7.2 10^3/ul (1.6-7.5); NEUTROPHILS % 67.3 % (39.0-77.0); PLATELET COUNT 318 10^3/UL (140-415); RED BLOOD COUNT 3.86 10^6/ul (4.20-5.40); RED CELL DISTRIBUTION WIDTH 19.8 % (11.5-14.5); WHITE BLOOD COUNT 10.7 10^3/ul (4.8-10.8)
[2016-12-18] MEDS ORDERED: NOVO3I SC (15:16)
[2016-12-18] MEDS ORDERED: PHOS250T GTB (15:19)
[2016-12-18] MEDS ORDERED: LEVA0.634 INHALATION ×2 (15:21)
[2016-12-18] MEDS ORDERED: ONDA4TAB8 GTB (15:22)
[2016-12-18] MEDS ORDERED: NEPH GTB (15:22)
--- NOTE | 2016-12-18 15:23 | RADRPT ---
PROCEDURE: XR Chest. CLINICAL INDICATION: Chest pain TECHNIQUE: Single frontal view of the chest was obtained. COMPARISON: 10/12/2016 FINDINGS: The heart is within normal limits. The thoracic aorta is calcified. There is a left-sided pacemaker in place. There is a tracheostomy tube and right-sided Perma-Cath i n place. There are mild bibasilar atelectatic changes. There is no pleural effusion or pneumothorax. RPTAT: AA IMPRESSION: Mild bibasilar atelectatic changes. Calcified aorta consistent with atherosclerotic disease. .Fernando Alan MD, Date Time Electronically viewed and signed by .Fernando Alan MD, on 12/18/2016 15:23 .S/
[2016-12-18] MEDS ORDERED: PROT946L GTB (15:24)
[2016-12-18 15:28] LABS: PROTIME 13.2 Sec (12.2-14.2)
[2016-12-18 15:29] LABS: PARTIAL THROMBOPLASTIN TIME 28.5 Sec (25.0-35.0)
[2016-12-18 15:30] LABS: ALANINE AMINOTRANSFERASE 26 IU/L (13-69); ALBUMIN 4.3 g/dl (3.3-4.9); ALBUMIN/GLOBULIN RATIO 0.86; ALKALINE PHOSPHATASE 82 IU/L (42-121); ANION GAP 17 (8-16); ASPARTATE AMINO TRANSFERASE 29 IU/L (15-46); BILIRUBIN,INDIRECT 0.1 mg/dl (0-1.1); BILIRUBIN,TOTAL 0.1 mg/dl (0.2-1.3); BLOOD UREA NITROGEN 23 mg/dl (7-20); CARBON DIOXIDE 25 mmol/L (21-31); CHLORIDE 102 mmol/L (97-110); GLUCOSE 121 mg/dl (70-220); POTASSIUM 3.5 mmol/L (3.5-5.1); SODIUM 140 mmol/L (135-144); TOTAL PROTEIN 9.3 g/dl (6.1-8.1)
[2016-12-18] MEDS ORDERED: [UNRECOGNIZED DRUG - CODE] TP (15:35)
[2016-12-18 15:49] LABS: TROPONIN-I < 0.012 ng/ml (0.00-0.12)
--- NOTE | 2016-12-18 16:25 | ERD ---
ER Documentation Chief Complaint Date/Time DATE: 12/18/16 TIME: 16:22 Chief Complaint R90 FR [facility], LOW SPO2, VENT DEPENDENT HPI Patient is a 66-year-old female with trach and vent who presents for low oxygen. The patient was sent from [facility] [place]. The patient was brought in by ambulance. Supposedly the patient had a high heart rate and a low oxygen but after suctioning at the facility was feeling better and the oxygen went up to the high 90s. The patient was sent by the primary doctor however for evaluation. The patient does not want to be admitted to the hospital. ROS All systems reviewed and are negative except as per history of present illness. Medications Home Meds Reported Medications Menthol/Camphor/Dimeth/Phenol (Blistex Medicated Lip Ointment) 10 Gm Oint...g., 10 GM TP Q2HWA 12/18/16 Protein Supplement (Promod) 946 Ml Liquid, 30 ML GTB BID MIX WITH 30-60 MLS OF WATER 12/18/16 Multivit/Ca Carb/B Cmplx/Fa* (Macrina-Brigitte*) 1 Tab Tab, 1 TAB GTB DAILY, TAB 12/18/16 Ondansetron Hcl* (Zofran*) 4 Mg Tablet, 4 MG GTB Q4 Y for NAUSEA AND OR VOMITING , TAB 12/18/16 Levalbuterol Hcl* (Levalbuterol Hcl*) 0.63 Mg/3 Ml Vial.neb, 0.63 MG INHALATION Q6H Y for WHEEZING AND SOB, VIAL 12/18/16 Levalbuterol Hcl* (Levalbuterol Hcl*) 0.63 Mg/3 Ml Vial.neb, 0.63 MG INHALATION Q2H Y for WHEEZING AND SOB, VIAL 12/18/16 Phosphorus #1* (K-Phos Neutral*) 250 Mg Tablet, 250 MG GTB BID, TAB 12/18/16 Insulin Aspart* (Novolog Insulin Pen*) 100 Unit/Ml Soln, 0 SC .SLIDING SCALE AC , EA SLIDING SCALE 131-160= 2 UNITS 161-200= 3 UNITS 201-250= 6 UNITS 251-300= 9 UNITS 301-350=12 UNITS 351-400=15 UNITS IF BS ABOVE 400 CALL MD TO BE GIVEN EVERY 6 HOURS PER SLIDING SCALE 12/18/16 Dextrose 30%-Water (Dextrose 30%/Water Iv Soln.) 500 Ml Iv.soln, 15 ML IV EVERY 15 MIN Y for HYPOGLYCEMIA SHOULD BE DEXTROSE 50% 12/18/16 Epoetin jer* (Epogen*) 4,000 Unit/1 Ml Vial, 60947 UNIT SC TUE,THURS,SAT, VIAL TO BE GIVEN AT DIALYSIS 12/18/16 Glucagon,Human Recombinant (Glucagon Emergency Kit) 1 Mg Kit, 1 MG IJ prn, KIT 12/18/16 Heparin Sodium,Porcine/Pf (HEPARIN SOD 5,000 UNIT/ 0.5 ML) 5,000 Unit/0.5 Ml Vial, 5000 UNIT IJ Q12, VIAL 12/18/16 Ipratropium-Albuterol (Ipratropium-Albuterol) 0.5-3 Mg/3 Ml Ampul.neb, 3 ML INHALATION Q2H Y for WHEEZING AND SOB, #30 VIAL 12/18/16 Ipratropium-Albuterol (Ipratropium-Albuterol) 0.5-3 Mg/3 Ml Ampul.neb, 3 ML INHALATION Q6 Y for WHEEZING AND SOB, #30 VIAL 12/18/16 Diphenhydramine Hcl* (Benadryl*) 25 Mg Cap, 25 MG GTB Q6H Y for ITCHING, CAP 12/18/16 Lansoprazole* (Lansoprazole*) 30 Mg Capsule.dr, 30 MG GTB AC BREAKFAST, CAP 11/15/16 Amiodarone Hcl* (Amiodarone Hcl*) 200 Mg Tablet, 200 MG GTB DAILY, #30 TAB 11/15/16 Acetaminophen* (Acetaminophen* Susp) 160 Mg/5 Ml Oral.susp, 650 MG GTB Q4H Y for PAIN OR TEMP ABOVE 38C, ML 11/15/16 Discontinued Reported Medications Simethicone* (Mylicon*) 80 Mg Tab, 80 MG GTB Q6H Y for PAIN, TAB 11/15/16 Risedronate* (Actonel*) 150 Mg Tablet, 150 MG GTB Q28D, #1 TAB 11/15/16 Multivitamins* (Theragran*) 1 Tab Tab, 1 TAB GTB DAILY, TAB 11/15/16 Metoprolol Tartrate* (Lopressor*) 100 Mg Tablet, 100 MG GTB BID, #60 TAB HOLD IF SBP LESS THAN 90 OR HR LESS THAN 50 11/15/16 Lactobacillus Rhamnosus* (Culturelle*) 1 Each Cap.sprink, 1 CAP GTB BID, CAP 11/15/16 Escitalopram Oxalate* (Lexapro*) 5 Mg Tablet, 5 MG GTB DAILY, #30 TAB 11/15/16 Bisacodyl* (Bisacodyl*) 5 Mg Tablet.dr, 10 MG GTB DAILY Y for CONSTIPATION, TAB 11/15/16 Albuterol Sulfate* (Albuterol Sulfate* Neb) 0.083%-3 Ml Neb, 1 VIAL NEB Q4H Y for WHEEZING AND SOB, #30 VIAL 11/15/16 Insulin Glargine* (Lantus*) 100 Unit/Ml Soln, 18 UNIT SC QHS, #1 VIAL 11/15/16 Insulin Aspart* (Novolog Insulin Pen*) 100 Unit/Ml Soln, 0-12 SC Q6, EA 11/15/16 Apixaban* (Eliquis*) 2.5 Mg Tablet, 2.5 MG GTB BID, TAB 11/15/16 Allergies Allergies: Coded Allergies: erythromycin base (Verified Allergy, Unknown, 12/18/16) morphine (Verified Allergy, Unknown, 12/18/16) vancomycin (Verified Allergy, Unknown, 12/18/16) PMhx/Soc History of Surgery: Yes Anesthesia Reaction: No Hx 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 Disorder: No Hx Respiratory Disorders: Yes Hx Cardiac Disorders: Yes Hx Psychiatric Problems: No Hx Miscellaneous Medical Probl: Yes (A-FIB,CHF,C-DIFF,DM,BILATERAL MASTECTOMY, CA, RESP. FAILURE) Hx Alcohol Use: No Hx Substance Use: No Hx Tobacco Use: No FmHx Family History: No diabetes Physical Exam Vitals Vital Signs Date Time Temp Pulse Resp B/P Pulse Ox O2 Delivery O2 Flow Rate FiO2 12/18/16 14:50 98.6 96 23 114/48 100 12/18/16 14:40 97 26 99 100 Physical Exam Const: Chronically ill Head: Atraumatic Eyes: Normal Conjunctiva ENT: Normal External Ears, Nose and Mouth. Neck: Tracheostomy in place Resp: Clear to auscultation bilaterally Cardio: Regular rate and rhythm, no murmurs Abd: Soft, non tender, non distended. Normal bowel sounds Skin: No petechiae or rashes Back: No midline or flank tenderness Ext: No cyanosis, or edema Neur: Awake Result Diagram: 12/18/16 1500 12/18/16 1500 Results 24 hrs Laboratory Tests Test 12/18/16 15:00 White Blood Count 10.710^3/ul Red Blood Count 3.8610^6/ul Hemoglobin 11.0g/dl Hematocrit 35.4% Mean Corpuscular Volume 91.7fl Mean Corpuscular Hemoglobin 28.5pg Mean Corpuscular Hemoglobin Concent 31.1g/dl Red Cell Distribution Width 19.8% Platelet Count 37576^3/UL Mean Platelet Volume 10.6fl Neutrophils % 67.3% Lymphocytes % 19.2% Monocytes % 9.2% Eosinophils % 3.3% Basophils % 0.5% Nucleated Red Blood Cells % 0.0/100WBC Neutrophils # 7.210^3/ul Lymphocytes # 2.110^3/ul Monocytes # 1.010^3/ul Eosinophils # 0.410^3/ul Basophils # 0.110^3/ul Nucleated Red Blood Cells # 0.010^3/ul Prothrombin Time 13.2Sec Prothrombin Time Ratio 1.0 INR International Normalized Ratio 1.00 Activated Partial Thromboplast Time 28.5Sec Sodium Level 140mmol/L Potassium Level 3.5mmol/L Chloride Level 102mmol/L Carbon Dioxide Level 25mmol/L Anion Gap 17 Blood Urea Nitrogen 23mg/dl Creatinine 1.80mg/dl Glucose Level 121mg/dl Lactic Acid Level 1.5mmol/L Calcium Level 10.0mg/dl Total Bilirubin 0.1mg/dl Direct Bilirubin 0.00mg/dl Indirect Bilirubin 0.1mg/dl Aspartate Amino Transf (AST/SGOT) 29IU/L Alanine Aminotransferase (ALT/SGPT) 26IU/L Alkaline Phosphatase 82IU/L Troponin I < 0.012ng/ml Total Protein 9.3g/dl Albumin 4.3g/dl Globulin 5.00g/dl Albumin/Globulin Ratio 0.86 Current Medications Medications (Trade) Dose Ordered Sig/Jennifer Route PRN Reason Start Time Stop Time Status Last Admin Dose Admin Cefepime HCl 50 ml @ 100 mls/hr ONCE STAT IVPB 12/18/16 14:41 12/18/16 15:10 DC 12/18/16 15:32 Sodium Chloride 1,000 ml @ 1,000 mls/hr Q1H STAT IV 12/18/16 14:41 12/18/16 15:40 DC 12/18/16 15:32 Sodium Chloride (NS) 1,000 ml @ 1,000 mls/hr Q1H STAT IV 12/18/16 14:41 12/18/16 15:40 DC 12/18/16 15:33 Procedures/MDM EKG read by me: Rate/Rhythm: Regular rate and rhythm at a normal rate Intervals: Normal Impression: No evidence of ischemia or arrhythmia Chest x-ray shows no pneumonia or pneumothorax per radiology. Patient is a 66-year-old female with trach and vent who presents with shortness of breath. The patient has normal vital signs here in the emergency department and has no respiratory distress. She does not want to be here and wants to go home. Laboratory studies are basically normal and x-ray shows no pneumonia or pneumothorax. At this point I doubt acute coronary syndrome, pneumonia, pneumothorax, pulmonary embolism, or aortic dissection. The daughter is now here and did not want the patient transported to the emergency department either. She feels comfortable with the patient going back to the nursing facility. I spoke with Dr. Hogan who is covering for Dr. Carroll to let her know that we would be discharging back to the facility and she agrees. The patient will be transported by ambulance back to the nursing facility. I doubt sepsis or serious bacterial infection at this time. Departure Diagnosis: Primary Impression: Shortness of breath Additional Impression: Anemia Anemia type: unspecified type Qualified Code: D64.9 - Anemia, unspecified type Condition: Fair Patient Instructions: Dyspnea Referrals: YAYO EDGAR DO (PCP) Additional Instructions: Call your primary care doctor TOMORROW for an appointment during the next 1-2 days.See the doctor sooner or return here if your condition worsens before your appointment time. VI WOODS MD Dec 18, 2016 16:25
[2016-12-18 18:24] VITALS: BP 116/79; PULSE 85; RESP 23; TEMP 98.6
== END 2016-12-18 18:30 | disposition home or self-care (01) ==
LOC: E/R 14:34
DX: R06.02 Shortness of breath (principal); D64.9 Anemia, unspecified; I50.9 Heart failure, unspecified; E11.9 Type 2 diabetes mellitus without complications; Z79.01 Long term (current) use of anticoagulants; Z79.4 Long term (current) use of insulin
CPT/HCPCS: 36415; 71010; 80053; 83605; 84484; 85025; 85610; 85730; 87040; 93005; 94002; 96374; 99285; J0692; J7030

== ENCOUNTER 2017-01-07 03:10 | Inpatient (IN) | payer BC ==
[2017-01-07] VITALS (13 sets, daily range): BP systolic 78–114; BP diastolic 50–68; PULSE 66–69; RESP 18–21; TEMP 97.4; Ht 175.3 cm; Wt 68.9 kg
[~2017-01-07] VITALS: Ht 175.3 cm; Wt 68.9 kg
[~2017-01-07 03:10] MED LIST changes: -ALBU2.5V3 NEB; +BEN25 GTB; -BISA5TAB6 GTB; +EPOE40002 SC; -ESCI5TAB GTB; +GLUC1KIT IJ; +HEPA500021 IJ; +IPRA3AMP INHALATION; -LACT1CAP57 GTB; +LEVA0.634 INHALATION; -METO-407 GTB; -MULTI GTB; -MYL80 GTB; +NEPH GTB; +NOVO3I SC; +ONDA4TAB8 GTB; +PHOS250T GTB; +PROT946L GTB; -RISE150T3 GTB; +[UNRECOGNIZED DRUG - CODE] TP; +[UNRECOGNIZED DRUG - OTHER] IV
--- NOTE | 2017-01-07 03:15 | ERA ---
ER Documentation Chief Complaint Date/Time DATE: 01/07/17 TIME: 03:14 Chief Complaint Low O2 saturation HPI The patient is a 66-year-old female, presenting to the ER because of low O2 saturation in the halfway. 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 Medications Home Meds Reported Medications Menthol/Camphor/Dimeth/Phenol (Blistex Medicated Lip Ointment) 10 Gm Oint...g., 10 GM TP Q2HWA 12/18/16 Protein Supplement (Promod) 946 Ml Liquid, 30 ML GTB BID MIX WITH 30-60 MLS OF WATER 12/18/16 Multivit/Ca Carb/B Cmplx/Fa* (Macrina-Brigitte*) 1 Tab Tab, 1 TAB GTB DAILY, TAB 12/18/16 Ondansetron Hcl* (Zofran*) 4 Mg Tablet, 4 MG GTB Q4 Y for NAUSEA AND OR VOMITING , TAB 12/18/16 Levalbuterol Hcl* (Levalbuterol Hcl*) 0.63 Mg/3 Ml Vial.neb, 0.63 MG INHALATION Q6H Y for WHEEZING AND SOB, VIAL 12/18/16 Levalbuterol Hcl* (Levalbuterol Hcl*) 0.63 Mg/3 Ml Vial.neb, 0.63 MG INHALATION Q2H Y for WHEEZING AND SOB, VIAL 12/18/16 Phosphorus #1* (K-Phos Neutral*) 250 Mg Tablet, 250 MG GTB BID, TAB 12/18/16 Insulin Aspart* (Novolog Insulin Pen*) 100 Unit/Ml Soln, 0 SC .SLIDING SCALE AC , EA SLIDING SCALE 131-160= 2 UNITS 161-200= 3 UNITS 201-250= 6 UNITS 251-300= 9 UNITS 301-350=12 UNITS 351-400=15 UNITS IF BS ABOVE 400 CALL MD TO BE GIVEN EVERY 6 HOURS PER SLIDING SCALE 12/18/16 Dextrose 30%-Water (Dextrose 30%/Water Iv Soln.) 500 Ml Iv.soln, 15 ML IV EVERY 15 MIN Y for HYPOGLYCEMIA SHOULD BE DEXTROSE 50% 12/18/16 Epoetin jer* (Epogen*) 4,000 Unit/1 Ml Vial, 93922 UNIT SC TUE,THURS,SAT, VIAL TO BE GIVEN AT DIALYSIS 12/18/16 Glucagon,Human Recombinant (Glucagon Emergency Kit) 1 Mg Kit, 1 MG IJ prn, KIT 12/18/16 Heparin Sodium,Porcine/Pf (HEPARIN SOD 5,000 UNIT/ 0.5 ML) 5,000 Unit/0.5 Ml Vial, 5000 UNIT IJ Q12, VIAL 12/18/16 Ipratropium-Albuterol (Ipratropium-Albuterol) 0.5-3 Mg/3 Ml Ampul.neb, 3 ML INHALATION Q2H Y for WHEEZING AND SOB, #30 VIAL 12/18/16 Ipratropium-Albuterol (Ipratropium-Albuterol) 0.5-3 Mg/3 Ml Ampul.neb, 3 ML INHALATION Q6 Y for WHEEZING AND SOB, #30 VIAL 12/18/16 Diphenhydramine Hcl* (Benadryl*) 25 Mg Cap, 25 MG GTB Q6H Y for ITCHING, CAP 12/18/16 Lansoprazole* (Lansoprazole*) 30 Mg Capsule.dr, 30 MG GTB AC BREAKFAST, CAP 11/15/16 Amiodarone Hcl* (Amiodarone Hcl*) 200 Mg Tablet, 200 MG GTB DAILY, #30 TAB 11/15/16 Acetaminophen* (Acetaminophen* Susp) 160 Mg/5 Ml Oral.susp, 650 MG GTB Q4H Y for PAIN OR TEMP ABOVE 38C, ML 11/15/16 Allergies Allergies: Coded Allergies: erythromycin base (Verified Allergy, Unknown, 12/18/16) morphine (Verified Allergy, Unknown, 12/18/16) vancomycin (Verified Allergy, Unknown, 12/18/16) PMhx/Soc History of Surgery: Yes (MASTECTOMY, DIALYSIS ACCESS, G-TUBE) Anesthesia Reaction: No Hx 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 Disorder: No (MINERAL BONE DISORDER) Hx Respiratory Disorders: Yes (RESP FAILURE- TRACH-VENT, PNEUMONIA, ) Hx Cardiac Disorders: Yes (A FIB, CHF, DM ) Hx Psychiatric Problems: No Hx Miscellaneous Medical Probl: Yes (C-DIFF,BILATERAL MASTECTOMY, ANEMIA, UTI, ESRD) Hx Alcohol Use: No Hx Substance Use: No Hx Tobacco Use: No Physical Exam Vitals Vital Signs Date Time Temp Pulse Resp B/P Pulse Ox O2 Delivery O2 Flow Rate FiO2 01/07/17 05:23 98.1 68 33 101/58 95 Trach Collar 01/07/17 03:22 75 33 96 100 01/07/17 03:12 98.1 76 19 123/67 96 Physical Exam Const: Mild acute distress. Head: Atraumatic. Eyes: Normal Conjunctiva. ENT: Normal External Ears, Nose and Mouth. Neck: Full range of motion. No meningismus. Resp: Clear to auscultation anterior and lateral Cardio: Regular rate and rhythm Abd: Soft, non distended, normal bowel sounds, non tender. G-tube Skin: No petechiae or rashes. Back: No midline or flank tenderness. Ext: No cyanosis, or edema. Neur: Unable to perform due to her condition Psych: Unable to perform due to condition. Result Diagram: 01/07/17 0450 01/07/17 0450 Results 24 hrs Laboratory Tests Test 01/07/17 03:18 01/07/17 04:50 01/07/17 05:32 Blood Gas Specimen Source Blood arterial Arterial Blood Date Drawn 01/07/2017 3:50:34 AM Arterial Blood pH (Temp corrected) 7.367 Arterial Blood pCO2 (Temp correct) 39.2mmhg Arterial Blood pO2 (Temp corrected) 57.3mmHG Arterial Blood HCO3 22.0mmol/L Arterial Blood Base Excess -3.0mmol/L Arterial Blood Oxygen Saturation 86.8mmHG Ivan Test N/A Arterial Blood Gas Puncture Site Right Brachial Arterial Blood Carboxyhemoglobin 0.1% Arterial Blood Methemoglobin 0.2% Blood Gas A-a O2 Differential 616.5mmHg Oxyhemoglobin Percent 86.5% Total Hemoglobin 9.6g/dl Blood Gas Temperature 37.0C Blood Gas Respiration Rate 14.0 Blood Gas Actual Respiration Rate 28 Blood Gas Modality VENT - AC FiO2 100.0% Blood Gas Tidal Volume 450.0mL Blood Gas Low PEEP Setting 5.0cmH2O Blood Gas Inspiratory Pressure 17.0 Blood Gas Notified Whom MG Blood Gas Notified Time 01/07/2017 3:55:02 AM White Blood Count 11.110^3/ul Red Blood Count 3.0110^6/ul Hemoglobin 8.6g/dl Hematocrit 28.4% Mean Corpuscular Volume 94.4fl Mean Corpuscular Hemoglobin 28.6pg Mean Corpuscular Hemoglobin Concent 30.3g/dl Red Cell Distribution Width 19.5% Platelet Count 85578^3/UL Mean Platelet Volume 10.7fl Neutrophils % 73.6% Lymphocytes % 15.1% Monocytes % 8.8% Eosinophils % 1.6% Basophils % 0.2% Nucleated Red Blood Cells % 0.0/100WBC Neutrophils # 8.210^3/ul Lymphocytes # 1.710^3/ul Monocytes # 1.010^3/ul Eosinophils # 0.210^3/ul Basophils # 0.010^3/ul Nucleated Red Blood Cells # 0.010^3/ul Prothrombin Time 14.6Sec Prothrombin Time Ratio 1.1 INR International Normalized Ratio 1.14 Activated Partial Thromboplast Time 31.4Sec Sodium Level 139mmol/L Potassium Level 3.9mmol/L Chloride Level 100mmol/L Carbon Dioxide Level 26mmol/L Anion Gap 17 Blood Urea Nitrogen 50mg/dl Creatinine 2.30mg/dl Glucose Level 62mg/dl Lactic Acid Level 1.6mmol/L Calcium Level 9.5mg/dl Total Bilirubin 0.0mg/dl Direct Bilirubin 0.00mg/dl Indirect Bilirubin 0.0mg/dl Aspartate Amino Transf (AST/SGOT) 29IU/L Alanine Aminotransferase (ALT/SGPT) 29IU/L Alkaline Phosphatase 74IU/L Troponin I < 0.012ng/ml Total Protein 8.1g/dl Albumin 4.1g/dl Globulin 4.00g/dl Albumin/Globulin Ratio 1.02 Bedside Glucose 69mg/dL Current Medications Medications (Trade) Dose Ordered Sig/Jennifer Route PRN Reason Start Time Stop Time Status Last Admin Dose Admin Dextrose (D50w Syringe) 50 ml STK-MED ONCE .ROUTE 01/07/17 05:35 01/07/17 05:36 DC Procedures/[place] [id number] Radiology Main Line: [phone] DIAGNOSTIC IMAGING REPORT Patient: CINTIA ROSALES : 1950 Age: 66 Sex: F MR #: [id number] DOS: 01/07/17 0318 Ordering MD: FILEMON RUSSELL MD Location: E/R Room/Bed: PROCEDURE: Chest. CLINICAL INDICATION: Chest pain. TECHNIQUE: Single frontal view of the chest was obtained. COMPARISON: 12/18/2016. FINDINGS: There is a left-sided pacemaker. The patient status post tracheostomy. There is a right-sided Perma-Cath extending to the SVC/RA junction. The cardiac silhouette is enlarged. The aortic arch is calcified. There is pulmonary venous congestion. There is mild bibasilar atelectasis. There is no pleural effusion. There is no pneumothorax. IMPRESSION: Cardiomegaly and mild pulmonary venous congestion, unchanged. Mild bibasilar atelectasis. Aortic atherosclerosis. .Ha Clifford MD, MD Date Time Electronically viewed and signed by .Ha Clifford MD, MD on 01/07/2017 03:49 .T/ CC: FILEMON RUSSELL MD EKG: Read by emergency physician Rate/Rhythm: Normal Sinus Rhythm 76 beats/min QRS, ST, T-waves: No ST elevation, no T inversion, LAD, incomplete right bundle branch block, nonspecific ST and T abnormality, prolonged QT Impression: Abnormal EKG MEDICAL MAKING DECISION: The patient is a 66-year-old female, presenting with acute respiratory failure, probable acute fluid overload, acute hypoglycemia. She was treated empirically with Rocephin IV and Zithromax IV due to acute respiratory failure and 1 amp of D50 IV for acute hypoglycemia good response. She normally only uses 40%, however she now use 100% FiO2 The differential diagnoses considered include but are not limited to pneumonia, cystitis, pyelonephritis, sepsis Critical Care: Time: 35 minutes excluding all billable procedures. Treatments/Evaluations: Close monitoring and treatment of unstable vital signs, cardiorespiratory, and neurologic status, while maintaining tight balance of fluid, respiratory, and cardiac interventions. Departure Diagnosis: Primary Impression: Acute respiratory failure Additional Impressions: Fluid overload Hypoglycemia Anemia Condition: Serious Comments I discussed the findings with the patient. I awaiting for her physician Dr. Pool to call back to admit the patient FILEMON RUSSELL MD Jan 07, 2017 03:14
--- NOTE | 2017-01-07 03:49 | RADRPT ---
PROCEDURE: Chest. CLINICAL INDICATION: Chest pain. TECHNIQUE: Single frontal view of the chest was obtained. COMPARISON: 12/18/2016. FINDINGS: There is a left-sided pacemaker. The patient status post tracheostomy. There is a right-sided Perm a-Cath extending to the SVC/RA junction. The cardiac silhouette is enlarged. The aortic arch is ca lcified. There is pulmonary venous congestion. There is mild bibasilar atelectasis. There is no p leural effusion. There is no pneumothorax. IMPRESSION: Cardiomegaly and mild pulmonary venous congestion, unchanged. Mild bibasilar atelectasis. Aortic atherosclerosis. .Ha Clifford MD, Date Time Electronically viewed and signed by .Ha Clifford MD, MD on 01/07/2017 03:49 .T/
[2017-01-07 03:55] LABS: AADO2 Arterial 616.5 mmHg (7.0-24.0); Arterial COHb 0.1 % (0.0-3.0); Arterial Fraction of Oxyhgb 86.5 % (93.0-99.0); Arterial MetHb 0.2 % (0.0-1.5); Arterial Total Hemglobin 9.6 g/dl (12.0-18.0); MODE VENT - AC
[2017-01-07 05:03] LABS: BASOPHILS % 0.2 % (0.0-2.0); EOSINOPHILS # 0.2 10^3/ul (0.0-0.5); EOSINOPHILS % 1.6 % (0.0-7.0); HEMATOCRIT 28.4 % (37.0-47.0); HEMOGLOBIN 8.6 g/dl (12.0-16.0); LYMPHOCYTES # 1.7 10^3/ul (0.8-2.9); LYMPHOCYTES % 15.1 % (15.0-51.0); MEAN CORPUSCULAR HEMOGLOBIN 28.6 pg (29.0-33.0); MEAN CORPUSCULAR HGB CONC 30.3 g/dl (32.0-37.0); MEAN CORPUSCULAR VOLUME 94.4 fl (82.0-101.0); MEAN PLATELET VOLUME 10.7 fl (7.4-10.4); MONOCYTES % 8.8 % (0.0-11.0); NEUTROPHIL # 8.2 10^3/ul (1.6-7.5); NEUTROPHILS % 73.6 % (39.0-77.0); PLATELET COUNT 208 10^3/UL (140-415); RED BLOOD COUNT 3.01 10^6/ul (4.20-5.40); RED CELL DISTRIBUTION WIDTH 19.5 % (11.5-14.5); WHITE BLOOD COUNT 11.1 10^3/ul (4.8-10.8)
[2017-01-07 05:15] LABS: ADD SCAN DIFF NO
[2017-01-07 05:27] LABS: INR 1.14; PARTIAL THROMBOPLASTIN TIME 31.4 Sec (25.0-35.0); PROTIME 14.6 Sec (12.2-14.2); PT RATIO 1.1
[2017-01-07 05:28] LABS: ALANINE AMINOTRANSFERASE 29 IU/L (13-69); ALBUMIN 4.1 g/dl (3.3-4.9); ALBUMIN/GLOBULIN RATIO 1.02; ALKALINE PHOSPHATASE 74 IU/L (42-121); ANION GAP 17 (8-16); ASPARTATE AMINO TRANSFERASE 29 IU/L (15-46); BLOOD UREA NITROGEN 50 mg/dl (7-20); CALCIUM 9.5 mg/dl (8.4-10.2); CARBON DIOXIDE 26 mmol/L (21-31); CHLORIDE 100 mmol/L (97-110); GLUCOSE 62 mg/dl (70-220); POTASSIUM 3.9 mmol/L (3.5-5.1); SODIUM 139 mmol/L (135-144); TOTAL PROTEIN 8.1 g/dl (6.1-8.1)
[2017-01-07] MEDS ORDERED: DEXTROSE 50% 50 ML SYRINGE ONE (05:35)
[2017-01-07 05:44] LABS: TROPONIN-I < 0.012 ng/ml (0.00-0.12)
[2017-01-07] MEDS ORDERED: DEXTROSE 50% 50 ML SYRINGE IV ONE (06:00)
[2017-01-07] MEDS ORDERED: CEFTRIAXONE 1 GM/50 ML (PMX) 50 ML IVPB ONE (06:00)
[2017-01-07] MEDS ORDERED: AZITHROMYCIN 500MG/NS (PMX) 250 ML IVPB ONE (06:00)
[2017-01-07] MEDS ORDERED: FUROSEMIDE 40 MG INJ IV ONE (06:00)
[2017-01-07 08:02] LABS: ADD UMIC YES; UR ASCORBIC ACID 20 mg/dL (NEGATIVE); UR BILIRUBIN (Dip) NEGATIVE (NEGATIVE); UR BLOOD (Dip) 2+ mg/dL (NEGATIVE); UR BUDDING YEAST MANY /HPF (NONE SEEN); UR CLARITY TURBID (CLEAR); UR COLOR YELLOW (YELLOW); UR GLUCOSE (Dip) NEGATIVE (NEGATIVE); UR KETONES (Dip) NEGATIVE (NEGATIVE); UR LEUKOCYTE ESTERASE (Dip) 1+ Leu/ul (NEGATIVE); UR NITRITE (Dip) NEGATIVE (NEGATIVE); UR RBC 92 /HPF (0-5); UR SPECIFIC GRAVITY (Dip) 1.017 (1.003-1.030); UR SQUAMOUS EPITHELIAL CELL MANY /HPF (FEW); UR TOTAL PROTEIN (Dip) 2+ mg/dl (NEGATIVE); UR UROBILINOGEN (Dip) NEGATIVE (NEGATIVE); UR WBC CLUMPS MANY /HPF (NONE SEEN)
[2017-01-07] MEDS: AMIODARONE 200 MG TAB GTB SCH (13:00)
[2017-01-07] MEDS ORDERED: ALBUTEROL/IPRATROPIUM (NEB) 3 ML AMP NEB PRN ×2 (13:00)
[2017-01-07 14:12] LABS: AADO2 Arterial 598.1 mmHg (7.0-24.0); Allen Test ACCEPTAB; Arterial Base Excess -1.1 mmol/L (-3.0-3); Arterial COHb 0.3 % (0.0-3.0); Arterial HCO3 23.4 mmol/L (22.0-26.0); Arterial MetHb 0.3 % (0.0-1.5); MODE VENT - AC
--- NOTE | 2017-01-07 16:01 | HP ---
Date/Time of Note Date/Time of Note DATE: 01/07/17 TIME: 15:50 Assessment/Plan VTE Prophylaxis VTE Prophylaxis Intervention: ambulation Assessment/Plan Assessment/Plan This is a 66-year-old female who presents with: 1. hypoxemic respiratory failure. etiology likely multifactorial, chf, ? pna, mucus plug - The patient's vent settings have been reviewed. -plan for hd and volume removal -cont antibiotics, place ID consult - place a pulmonary consult for vent management. 3. Encephalopathy, acute. Etiology is likely secondary to toxic metabolic hemodynamics. 4. Dysphagia, status post percutaneous endoscopic gastrostomy. Will resume tube feeding. 5. esrd. Patient is currently on intermittent hemodialysis. Will continue. No evidence of recovery at this time. 6. Critical care polyneuropathy. Will continue to monitor. 7. Atrial fibrillation, currently rate controlled. Continue medical management. Continue Eliquis. Continue beta louise. We will follow up with cardiology. 8. Anemia. Continue to monitor hemoglobin and hematocrit levels. 9. Mineral bone disease. Continue to monitor calcium and phosphorus levels. 10. History of breast cancer status post bilateral mastectomy. 11. Congestive heart failure. Continue medical management. 12. Diabetes. Continue Accu-Cheks and sliding scale. 13. History of Clostridium difficile colitis, status post treatment. 14. Gastrointestinal and deep venous thrombosis prophylaxis. Continue Protonix , Eliquis. HPI/ROS Admit Date/Time Admit Date/Time Hx of Present Illness This is a 66-year-old female with a past medical history of breast cancer status post bilateral mastectomy in 1992, who initially presented to [facility] several months ago for respiratory failure secondary to pneumonia. The patient during that hospital course, underwent trach and PEG and was complicated with C. diff colitis and was treated with vancomycin. The patient was then transferred to [facility] for continued care where she was treated for ARDS, pulmonary edema. The patient went into acute renal failure, was started initially on hemodialysis. 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 The patient's course was further complicated at [facility] due to bacteremia with Staph hominis and E. coli. The patient also developed DIC and thrombocytopenia before being stabilized. The patient was then transferred to [facility] where she was receiving care, was being weaned off ventilatory support. The pt was then transferred to [facility] and eventually [facility]. Today pt presented to ED with low saturations. IN Er pt was suctioned aggressively. She had cxr showed pulmonary congestion. Pt was placed on fio2 100 on vent. She was also given breathing treatments ROS unable to obtain PMH/Family/Social Past Medical History s stated above, history of acute kidney injury, history of ventilator dependent respiratory failure, history of dysphagia, status post PEG, history of ARDS, history of breast cancer, history of atrial fibrillation. Past Surgical History Status post trach, status post PEG, status Perm-A-Cath placement. Social History Smoking Status: Unknown if ever smoked Exam/Review of Systems Vital Signs Vitals Vital Signs Date Time Temp Pulse Resp B/P Pulse Ox O2 Delivery O2 Flow Rate FiO2 01/07/17 13:16 67 21 100 100 01/07/17 12:49 97.4 127/73 Mechanical Ventilator Trach Collar Exam Exam HEENT: Head is normocephalic. NECK: Supple. HEART: Regular rate. LUNGS: Show diminished breath sounds at the base. ABDOMEN: Soft, nontender to palpation. Positive PEG. EXTREMITIES: Negative for clubbing, cyanosis, no edema. DERMATOLOGIC: No rashes. MUSCULOSKELETAL: No joint effusions. NEUROLOGIC: No change in exam. No obvious focal deficits. Labs Result Diagram: 01/07/17 0450 01/07/17 0450 Medications Medications Current Medications Azithromycin (Zithromax 500mg/ NS (Pmx)) 250 ml @ 250 mls/hr ONCE ONCE IVPB ; Start 01/07/17 at 06:00; Stop 01/07/17 at 06:59; Status UNV Acetaminophen (Tylenol Liquid) 650 mg Q4H PRN GTB PAIN OR TEMP ABOVE 38C; Start 01/07/17 at 13:00 Amiodarone HCl (Cordarone) 200 mg DAILY GTB ; Start 01/07/17 at 13:00; Status UNV Diphenhydramine HCl (Benadryl) 25 mg Q6H PRN GTB ITCHING; Start 01/07/17 at 13: 00 Albuterol/ Ipratropium (Duoneb) 3 ml Q2H PRN NEB WHEEZING AND SOB; Start at 13:00 Albuterol/ Ipratropium (Duoneb) 3 ml Q6 PRN NEB WHEEZING AND SOB; Start at 13:00 Multivit/Ca Carb/ B Cmplx/FA/Prenat (Macrina-Brigitte) 1 tab DAILY GTB ; Start 01/08/17 at 09:00 Ondansetron HCl (Zofran Tab) 4 mg Q4H PRN GTB NAUSEA AND/OR VOMITING; Start 01/07/17 at 13:00 Sodium Phosphate (Kphos Neutral) 250 mg BID GTB ; Start 01/07/17 at 21:00; Status CHARLIE CATHERINE DO Jan 07, 2017 16:01
--- NOTE | 2017-01-07 16:18 | CONS ---
Date/Time of Note Date/Time of Note DATE: 01/07/17 TIME: 16:10 Assessment/Plan Assessment/Plan Additional Assessment/Plan IMP: 1. Acute on chronic Hypoxemic Resp Failure: suspect due to mucus plugging. Doubt PE 2. UTI 3. VDRF 4. ESRD on HD RECS: 1. Vent: VAC rate 16; VT 450 PEEP 7; FiO2 60 2. Repeat ABG on these settings 3. BD's/CPT 4. Obtain Urine and BC x2 5. IV abx for UTI 6. May be downgraded to telemetry if maintains adequate gas exchange on above vent settings. Consultation Date/Type/Reason Admit Date/Time Type of Consultation: Pulm/CCM Hx of Present Illness Briefly, this is a 66-year-old female with a past medical history of breast cancer status post bilateral mastectomy in 1982 s/p prolonged hospital course recently at [place], [facility], and [facility], with ARDS leading to chronic resp failure s/p trach and PEG, complicated by C. difficile colitis, acute renal failure on dialysis and critical care polyneuropathy who now presents from SNF with hypoxemic resp failure requiring high FiO2. Unable to obtain Subjective hx not possible: pt non-verbal Past Medical History 1. Sepsis secondary to pneumonia and urinary tract infection. 2. Anemia. 3. End-stage renal disease. 4. Mineral bone disorder. 5. Ventilator-dependent respiratory failure. 6. Dysphagia. 7. Atrial fibrillation. 8. Congestive heart failure. 9. Diabetes. 10. Encephalopathy. 11. History of breast cancer. Past Surgical History Trach PEG mastectomy Family History Significant Family History: no pertinent family hx Social History Alcohol Use: none Smoking Status: Unknown if ever smoked Drug Use: none Exam/Review of Systems Vital Signs Vitals Vital Signs Date Time Temp Pulse Resp B/P Pulse Ox O2 Delivery O2 Flow Rate FiO2 01/07/17 15:00 67 21 100 100 01/07/17 12:49 97.4 127/73 Mechanical Ventilator Trach Collar Exam Constitutional: non-verbal Head: atraumatic, normocephalic Eyes: EOMI, nl conjunctiva, nl sclera ENMT: nl external ears & nose, other (trach site clean ) Neck: non-tender, supple Respiratory: clear to auscultation Cardiovascular: regular rate and rhythm Gastrointestinal: nl liver, spleen, non-tender, soft Extremities: normal pulses Results Result Diagram: 01/07/17 0450 01/07/17 0450 Results 24 hrs Laboratory Tests Test 01/07/17 03:18 01/07/17 04:50 01/07/17 05:10 01/07/17 05:32 Blood Gas Specimen Source Blood arterial Arterial Blood Date Drawn 01/07/2017 3:50:34 AM Arterial Blood pH (Temp corrected) 7.367 Arterial Blood pCO2 (Temp correct) 39.2 Arterial Blood pO2 (Temp corrected) 57.3 L Arterial Blood HCO3 22.0 Arterial Blood Base Excess -3.0 Arterial Blood Oxygen Saturation 86.8 L Ivan Test N/A Arterial Blood Gas Puncture Site Right Brachial Arterial Blood Carboxyhemoglobin 0.1 Arterial Blood Methemoglobin 0.2 Blood Gas A-a O2 Differential 616.5 H Oxyhemoglobin Percent 86.5 L Total Hemoglobin 9.6 L Blood Gas Temperature 37.0 Blood Gas Respiration Rate 14.0 Blood Gas Actual Respiration Rate 28 Blood Gas Modality VENT - AC FiO2 100.0 Blood Gas Tidal Volume 450.0 Blood Gas Low PEEP Setting 5.0 Blood Gas Inspiratory Pressure 17.0 Blood Gas Notified Whom MG Blood Gas Notified Time 01/07/2017 3:55:02 AM White Blood Count 11.1 H Red Blood Count 3.01 #L Hemoglobin 8.6 #L Hematocrit 28.4 L Mean Corpuscular Volume 94.4 Mean Corpuscular Hemoglobin 28.6 L Mean Corpuscular Hemoglobin Concent 30.3 L Red Cell Distribution Width 19.5 H Platelet Count 208 # Mean Platelet Volume 10.7 H Neutrophils % 73.6 Lymphocytes % 15.1 Monocytes % 8.8 Eosinophils % 1.6 Basophils % 0.2 Nucleated Red Blood Cells % 0.0 Neutrophils # 8.2 H Lymphocytes # 1.7 Monocytes # 1.0 H Eosinophils # 0.2 Basophils # 0.0 Nucleated Red Blood Cells # 0.0 Prothrombin Time 14.6 H Prothrombin Time Ratio 1.1 INR International Normalized Ratio 1.14 Activated Partial Thromboplast Time 31.4 Sodium Level 139 Potassium Level 3.9 Chloride Level 100 Carbon Dioxide Level 26 Anion Gap 17 H Blood Urea Nitrogen 50 H Creatinine 2.30 H Glucose Level 62 L Lactic Acid Level 1.6 1.9 Calcium Level 9.5 Total Bilirubin 0.0 L Direct Bilirubin 0.00 Indirect Bilirubin 0.0 Aspartate Amino Transf (AST/SGOT) 29 Alanine Aminotransferase (ALT/SGPT) 29 Alkaline Phosphatase 74 Troponin I < 0.012 Total Protein 8.1 Albumin 4.1 Globulin 4.00 H Albumin/Globulin Ratio 1.02 Bedside Glucose 69 L Test 01/07/17 07:14 01/07/17 08:05 01/07/17 10:57 01/07/17 13:51 Urine Color YELLOW Urine Clarity TURBID A Urine pH 5.0 Urine Specific [place] 1.017 Urine Ketones NEGATIVE Urine Nitrite NEGATIVE Urine Bilirubin NEGATIVE Urine Urobilinogen NEGATIVE Urine Leukocyte Esterase 1+ H Urine Microscopic RBC 92 H Urine Microscopic WBC > 182 H Urine Squamous Epithelial Cells MANY A Urine Hyaline Casts FEW A Urine Yeast (Budding) MANY A Urine Hemoglobin 2+ H Urine Glucose NEGATIVE Urine Total Protein 2+ H Lactic Acid Level 1.7 Bedside Glucose 93 Blood Gas Specimen Source Blood arterial Arterial Blood Date Drawn 01/07/2017 2:04:28 PM Arterial Blood pH (Temp corrected) 7.406 Arterial Blood pCO2 (Temp correct) 38.1 Arterial Blood pO2 (Temp corrected) 76.8 L Arterial Blood HCO3 23.4 Arterial Blood Base Excess -1.1 Arterial Blood Oxygen Saturation 94.6 L Ivan Test ACCEPTAB Arterial Blood Gas Puncture Site Right Radial Arterial Blood Carboxyhemoglobin 0.3 Arterial Blood Methemoglobin 0.3 Blood Gas A-a O2 Differential 598.1 H Oxyhemoglobin Percent 94.0 Total Hemoglobin 10.0 L Blood Gas Temperature 37.0 Blood Gas Respiration Rate 14.0 Blood Gas Actual Respiration Rate 22 Blood Gas Modality VENT - AC FiO2 100.0 Blood Gas Tidal Volume 500.0 Blood Gas Low PEEP Setting 5.0 Blood Gas Notified Whom M.D. Blood Gas Notified Time 01/07/2017 2:12:14 PM Medications Medications Current Medications Azithromycin (Zithromax 500mg/ NS (Pmx)) 250 ml @ 250 mls/hr ONCE ONCE IVPB ; Start 01/07/17 at 06:00; Stop 01/07/17 at 06:59; Status UNV Acetaminophen (Tylenol Liquid) 650 mg Q4H PRN GTB PAIN OR TEMP ABOVE 38C; Start 01/07/17 at 13:00 Amiodarone HCl (Cordarone) 200 mg DAILY GTB ; Start 01/07/17 at 13:00; Status UNV Diphenhydramine HCl (Benadryl) 25 mg Q6H PRN GTB ITCHING; Start 01/07/17 at 13: 00 Albuterol/ Ipratropium (Duoneb) 3 ml Q2H PRN NEB WHEEZING AND SOB; Start at 13:00 Albuterol/ Ipratropium (Duoneb) 3 ml Q6 PRN NEB WHEEZING AND SOB; Start at 13:00 Multivit/Ca Carb/ B Cmplx/FA/Prenat (Macrina-Brigitte) 1 tab DAILY GTB ; Start 01/08/17 at 09:00 Ondansetron HCl (Zofran Tab) 4 mg Q4H PRN GTB NAUSEA AND/OR VOMITING; Start 01/07/17 at 13:00 Sodium Phosphate (Kphos Neutral) 250 mg BID GTB ; Start 01/07/17 at 21:00; Status LEIDA RODRIGUEZ MD Jan 07, 2017 16:18
[2017-01-07 19:59] LABS: AADO2 Arterial 301.5 mmHg (7.0-24.0); Allen Test ACCEPTAB; Arterial Base Excess 3.7 mmol/L (-3.0-3); Arterial COHb 0.2 % (0.0-3.0); Arterial HCO3 27.5 mmol/L (22.0-26.0); Arterial MetHb 0.2 % (0.0-1.5); Arterial Total Hemglobin 10.1 g/dl (12.0-18.0); MODE VENT - AC/VC+
[2017-01-07] MEDS: SOD PHOS MONO/DIBAS 250 MG TAB GTB SCH (21:00)
[2017-01-07] MEDS ORDERED: MEROPENEM 2 GM in SOD CHLORIDE 0.9% 100 ML IVPB SCH (21:00)
[2017-01-07] MEDS ORDERED: GLUCAGON 1 MG INJ IM PRN (23:45)
[2017-01-07] MEDS ORDERED: GLUCOSE GEL 15 GRAM TUBE BUCCAL PRN (23:45)
[2017-01-07] MEDS ORDERED: GLUCOSE GEL 15 GRAM TUBE PO PRN ×2 (23:45)
[2017-01-08] VITALS (27 sets, daily range): BP systolic 80–122; BP diastolic 50–60; PULSE 66–94; RESP 17–30
[2017-01-08] MEDS ORDERED: SOD CHLORIDE 0.9% 500 ML IV ONE
[2017-01-08] MEDS: INSULIN ASPART [NOVOLOG] 3 ML PEN SC SCH ×4 (01:00→16:56)
[2017-01-08] MEDS ORDERED: MEROPENEM 2 GM in SOD CHLORIDE 0.9% 100 ML IVPB SCH ×2 (03:00→11:00)
[2017-01-08 06:44] LABS: BASOPHILS % 0.2 % (0.0-2.0); EOSINOPHILS # 0.8 10^3/ul (0.0-0.5); HEMATOCRIT 27.7 % (37.0-47.0); HEMOGLOBIN 8.5 g/dl (12.0-16.0); LYMPHOCYTES # 1.1 10^3/ul (0.8-2.9); LYMPHOCYTES % 10.5 % (15.0-51.0); MEAN CORPUSCULAR HEMOGLOBIN 28.5 pg (29.0-33.0); MEAN CORPUSCULAR HGB CONC 30.7 g/dl (32.0-37.0); MEAN PLATELET VOLUME 10.5 fl (7.4-10.4); MONOCYTE # 0.6 10^3/ul (0.3-0.9); MONOCYTES % 5.5 % (0.0-11.0); NEUTROPHIL # 7.6 10^3/ul (1.6-7.5); NEUTROPHILS % 75.3 % (39.0-77.0); PLATELET COUNT 231 10^3/UL (140-415); RED BLOOD COUNT 2.98 10^6/ul (4.20-5.40); RED CELL DISTRIBUTION WIDTH 19.5 % (11.5-14.5)
[2017-01-08 07:04] LABS: MAGNESIUM 1.9 mg/dl (1.7-2.5); PHOSPHORUS 2.6 mg/dl (2.5-4.9)
[2017-01-08 07:12] LABS: ADD SCAN DIFF NO
[2017-01-08 07:18] LABS: ALBUMIN 3.5 g/dl (3.3-4.9); ALBUMIN/GLOBULIN RATIO 0.85; BILIRUBIN,INDIRECT 0.1 mg/dl (0-1.1); BILIRUBIN,TOTAL 0.1 mg/dl (0.2-1.3); CALCIUM 9.1 mg/dl (8.4-10.2); CREATININE 1.81 mg/dl (0.44-1.00); POTASSIUM 3.2 mmol/L (3.5-5.1); TOTAL PROTEIN 7.6 g/dl (6.1-8.1)
[2017-01-08] MEDS ORDERED: PENDING SANTYL ORDER FOR WOUND CARE XX PRN (07:30)
--- NOTE | 2017-01-08 08:41 | RADRPT ---
PROCEDURE: XR Chest. CLINICAL INDICATION: Ventilator TECHNIQUE: Single frontal view of the chest was obtained COMPARISON: 01/07/2017 FINDINGS: Tracheostomy tube again seen. Right double-lumen catheter tip near atriocaval junction. Dual chamb er cardiac pacemaker again seen. Surgical clips in left axilla. Hypoinflation of the lungs. Incre ased density again seen in the right lower lung suggestive of an infiltrate. There is minimal promi nence of the lung interstitium likely minimal chronic changes. The heart does not appear to be gross ly enlarged. Calcification in the aortic arch. Mild ectasia and tortuosity of thoracic aorta again apparent. ECG leads projected over the chest. There is no definite pleural effusion or pneumothorax seen. There may be a gastrostomy tube. IMPRESSION: Patchy increased density again seen in the right lower lung suggestive of an infiltrate not signific antly changed compared to previous study. Please see above. RPTAT: HJES .Manuel Haskins MD, MD Date Time Electronically viewed and signed by .Manuel Haskins MD, MD on 01/08/2017 08:41 .S/
[2017-01-08] MEDS ORDERED: POTASSIUM CHLORIDE 20 MEQ POWDER FOR ORAL SOLN GTB ONE (09:00)
--- NOTE | 2017-01-08 09:04 | PN ---
Date/Time of Note Date/Time of Note DATE: 01/08/17 TIME: 08:58 Assessment/Plan VTE Prophylaxis VTE Prophylaxis Intervention: other Lines/Catheters IV [facility] Type (from [facility]): Peripheral IV Urinary Cath still in place: Yes (Placed in ED) Reason Cath still needed: other (indicate) Assessment/Plan Chief Complaint/Hosp Course 1. hypoxemic respiratory failure. etiology likely multifactorial, chf, ? pna, mucus plug -Vent settings have been reviewed. FiO2 levels coming down -Follow-up with pulmonary for vent management 2. Possible sepsis. Secondary to UTI questionable pneumonia. Urinalysis positive for pyuria. Chest x-ray suggests possible infiltrate -Continue antibiotic therapy. Follow-up with infectious disease 3. Encephalopathy, acute. Etiology is likely secondary to toxic metabolic -Mental status appears to be improving continue to monitor 4. Dysphagia, status post percutaneous endoscopic gastrostomy. -resume tube feeding. 5. ESRD -HD tomorrow 7. Atrial fibrillation, currently rate controlled. Continue medical management. Continue Eliquis. Continue beta louise. We will follow up with cardiology. 8. Anemia. Continue to monitor hemoglobin and hematocrit levels. Continue Epogen 9. Mineral bone disease. Continue to monitor calcium and phosphorus levels. 10. History of breast cancer status post bilateral mastectomy. 11. Congestive heart failure. Continue medical management. 12. Diabetes. Continue Accu-Cheks and sliding scale. 13. History of Clostridium difficile colitis, status post treatment. 14. Gastrointestinal and deep venous thrombosis prophylaxis. Continue Protonix , Eliquis. 15. Hypokalemia replete with potassium chloride Please note I spent over 20 minutes of time with the patient patient's daughter discussing CODE STATUS patient is full code Problems: Subjective 24 Hr Interval Summary Free Text/Dictation Patient was transferred to telemetry from ER yesterday. Received hemodialysis tolerated well. Currently on IV antibiotics. No other events noted overnight. Patient's FiO2 levels being titrated down. Exam/Review of Systems Vital Signs Vitals Vital Signs Date Time Temp Pulse Resp B/P Pulse Ox O2 Delivery O2 Flow Rate FiO2 01/08/17 08:52 72 01/08/17 07:30 24 98 70 01/08/17 07:23 98.4 93/57 01/07/17 20:30 Mechanical Ventilator Trach Collar Intake and Output 01/07/17 01/07/17 01/08/17 15:00 23:00 07:00 Intake Total 400 ml 60 ml Output Total 1800 ml Balance -1400 ml 60 ml Exam HEENT: Head is normocephalic. NECK: Supple. HEART: Regular rate. LUNGS: Show diminished breath sounds at the base. ABDOMEN: Soft, nontender to palpation. Positive PEG. EXTREMITIES: Negative for clubbing, cyanosis, no edema. DERMATOLOGIC: No rashes. MUSCULOSKELETAL: No joint effusions. NEUROLOGIC: No change in exam. No obvious focal deficits. Results Result Diagram: 01/08/17 0550 01/08/17 0550 Results 24 hrs Laboratory Tests Test 01/07/17 10:57 01/07/17 13:51 01/07/17 17:00 01/07/17 20:56 Bedside Glucose 93 Blood Gas Specimen Source Blood arterial Blood arterial Arterial Blood Date Drawn 01/07/2017 2:04:28 PM 01/07/2017 7:45:14 PM Arterial Blood pH (Temp corrected) 7.406 7.473 H Arterial Blood pCO2 (Temp correct) 38.1 38.4 Arterial Blood pO2 (Temp corrected) 76.8 L 84.1 Arterial Blood HCO3 23.4 27.5 H Arterial Blood Base Excess -1.1 3.7 H Arterial Blood Oxygen Saturation 94.6 L 96.4 Ivan Test ACCEPTAB ACCEPTAB Arterial Blood Gas Puncture Site Right Radial Right Radial Arterial Blood Carboxyhemoglobin 0.3 0.2 Arterial Blood Methemoglobin 0.3 0.2 Blood Gas A-a O2 Differential 598.1 H 301.5 H Oxyhemoglobin Percent 94.0 96.0 Total Hemoglobin 10.0 L 10.1 L Blood Gas Temperature 37.0 37.0 Blood Gas Respiration Rate 14.0 16.0 Blood Gas Actual Respiration Rate 22 23 Blood Gas Modality VENT - AC VENT - AC/VC+ FiO2 100.0 60.0 Blood Gas Tidal Volume 500.0 450.0 Blood Gas Low PEEP Setting 5.0 7.0 Blood Gas Notified Ivone MORALES Blood Gas Notified Time 01/07/2017 2:12:14 PM 01/07/2017 7:58:29 PM Blood Gas Inspiratory Time 0.8 Blood Gas Inspiratory Pressure 22.0 Lactic Acid Level 1.2 Test 01/07/17 23:38 01/08/17 05:50 01/08/17 06:16 Bedside Glucose 74 106 White Blood Count 10.0 Red Blood Count 2.98 L Hemoglobin 8.5 L Hematocrit 27.7 L Mean Corpuscular Volume 93.0 Mean Corpuscular Hemoglobin 28.5 L Mean Corpuscular Hemoglobin Concent 30.7 L Red Cell Distribution Width 19.5 H Platelet Count 231 Mean Platelet Volume 10.5 H Neutrophils % 75.3 Lymphocytes % 10.5 L Monocytes % 5.5 Eosinophils % 8.0 H Basophils % 0.2 Nucleated Red Blood Cells % 0.0 Neutrophils # 7.6 H Lymphocytes # 1.1 Monocytes # 0.6 Eosinophils # 0.8 H Basophils # 0.0 Nucleated Red Blood Cells # 0.0 Sodium Level 140 Potassium Level 3.2 L Chloride Level 99 Carbon Dioxide Level 26 Anion Gap 18 H Blood Urea Nitrogen 31 #H Creatinine 1.81 H Glucose Level 103 # Calcium Level 9.1 Phosphorus Level 2.6 Magnesium Level 1.9 Total Bilirubin 0.1 L Direct Bilirubin 0.00 Indirect Bilirubin 0.1 Aspartate Amino Transf (AST/SGOT) 24 Alanine Aminotransferase (ALT/SGPT) 18 Alkaline Phosphatase 65 Total Protein 7.6 Albumin 3.5 Globulin 4.10 H Albumin/Globulin Ratio 0.85 Medications Medications Current Medications Acetaminophen (Tylenol Liquid) 650 mg Q4H PRN GTB PAIN OR TEMP ABOVE 38C; Start 01/07/17 at 13:00 Amiodarone HCl (Cordarone) 200 mg DAILY GTB ; Start 01/07/17 at 13:00 Diphenhydramine HCl (Benadryl) 25 mg Q6H PRN GTB ITCHING; Start 01/07/17 at 13: 00 Albuterol/ Ipratropium (Duoneb) 3 ml Q2H PRN NEB WHEEZING AND SOB; Start at 13:00 Albuterol/ Ipratropium (Duoneb) 3 ml Q6 PRN NEB WHEEZING AND SOB Last administered on 01/08/17t 00:54; Admin Dose 3 ML; Start 01/07/17 at 13:00 Multivit/Ca Carb/ B Cmplx/FA/Prenat (Macrina-Brigitte) 1 tab DAILY GTB ; Start 01/08/17 at 09:00 Ondansetron HCl (Zofran Tab) 4 mg Q4H PRN GTB NAUSEA AND/OR VOMITING; Start 01/07/17 at 13:00 Sodium Phosphate (Kphos Neutral) 250 mg BID GTB ; Start 01/07/17 at 21:00 Miscellaneous Information 1 ea NOTE XX ; Start 01/07/17 at 23:45 Glucose (Glutose) 15 gm Q15M PRN PO DECREASED GLUCOSE; Start 01/07/17 at 23:45 Glucose (Glutose) 22.5 gm Q15M PRN PO DECREASED GLUCOSE; Start 01/07/17 at 23:45 Dextrose (D50w Syringe) 25 ml Q15M PRN IV DECREASED GLUCOSE; Start 01/07/17 at 23:45 Dextrose (D50w Syringe) 50 ml Q15M PRN IV DECREASED GLUCOSE; Start 01/07/17 at 23:45 Glucagon (Glucagen) 1 mg Q15M PRN IM DECREASED GLUCOSE; Start 01/07/17 at 23:45 Glucose (Glutose) 15 gm Q15M PRN BUCCAL DECREASED GLUCOSE; Start 01/07/17 at 23: 45 Miscellaneous Information This patient lopez... PRN PRN XX WOUND CARE; Start at 07:30 Meropenem (Merrem 500 Mg/ 100 ml (Pmx)) 100 ml @ 200 mls/hr Q24H IVPB ; Start 01/09/17 at 03:00 Insulin Aspart (Novolog Insulin Pen) NOVOLOG *MILD* ALGORI... Q6 SC ; Start 01/08 at 12:00 Potassium Chloride (Potassium Chloride Pwd/Soln) 40 meq ONCE ONCE GTB ; Start 01/08/17 at 09:00; Stop 01/08/17 at 09:01 CHARLIE BUSBY DO Jan 08, 2017 09:03
[2017-01-08] MEDS: LANSOPRAZOLE 30 MG CAP GTB SCH (09:15)
[2017-01-08] MEDS: AMIODARONE 200 MG TAB GTB SCH (09:16)
[2017-01-08] MEDS: MULTIVIT/CA CARB/B CMPLX/FA TAB GTB SCH (09:16)
[2017-01-08] MEDS: SOD PHOS MONO/DIBAS 250 MG TAB GTB SCH ×2 (09:18→21:43)
[2017-01-08] MEDS ORDERED: ALBUMIN HUMAN 25% 100 ML IV ONE (09:30)
--- NOTE | 2017-01-08 11:14 | CONS ---
Date/Time of Note Date/Time of Note DATE: 01/08/17 TIME: 10:36 Assessment/Plan Assessment/Plan Chief Complaint/Hosp Course ID PROGRESS NOTE CURRENT ABX: Merrem #2 Hospital Course / HPI * Patient has been followed by ID team colleague @ [facility]-> was DC'd from [facility] to SNF on 01/07/17, subsequently BIB EMS to [facility] ED 01/07/17 with hypoxemia evidenced by low SPO2 saturation, with hypotension, TLow of 97.5, Urine Cx (+) Yeast. * s/p prolonged hospital course recently at [facility], and [facility] with ARDS leading to chronic resp failure s/p trach and PEG, complicated by C. difficile colitis, acute renal failure now on dialysis. * CXR 01/08/17: FINDINGS:Tracheostomy tube again seen. Right double-lumen catheter tip near atriocaval junction. Dual chamber cardiac pacemaker again seen. Surgical clips in left axilla. Hypoinflation of the lungs. Increased density again seen in the right lower lung suggestive of an infiltrate. There is minimal prominence of the lung interstitium likely minimal chronic changes. The heart does not appear to be grossly enlarged. Calcification in the aortic arch. Mild ectasia and tortuosity of thoracic aorta again apparent. ECG leads projected over the chest. There is no definite pleural effusion or pneumothorax seen. There may be a gastrostomy tube. * => IMPRESSION:Patchy increased density again seen in the right lower lung suggestive of an infiltrate not significantly changed compared to previous study. Please see above. * MICRO Evaristo: 01/07/17 Rcvd: 01/07/17 Source: CATHETER U Sp Descrip: Microbiology URINE CULTURE Preliminary Organism 1 YEAST COLONY COUNT >100,000 CFU/ml * LABS 01/08/17 0550 01/08/17 0550 Past Medical History 1. Sepsis secondary to pneumonia and urinary tract infection. 2. Anemia. 3. End-stage renal disease. 4. Mineral bone disorder. 5. Ventilator-dependent respiratory failure. 6. Dysphagia. 7. Atrial fibrillation. 8. Congestive heart failure. 9. Dual chamber cardiac pacemaker implant status 10. Diabetes. 11. History of breast cancer status post bilateral mastectomy in 1982 12. Chronic encephalopathy Past Surgical History Trach PEG mastectomy Family History Significant Family History: no pertinent family hx Social History Alcohol Use: none Smoking Status: Unknown if ever smoked Drug Use: none Physical Exam Vitals: 98.4, 72, 93/57, 25, FIO2 70% Physical Exam Const: Mild acute distress. Head: Atraumatic. Eyes: Normal Conjunctiva. ENT: Normal External Ears, Nose and Mouth. Neck: Full range of motion. No meningismus. Resp: Clear to auscultation anterior and lateral, mild tachypnea Cardio: Regular rate and rhythm Abd: Soft, non distended, normal bowel sounds, non tender. G-tube Skin: No petechiae or rashes. Back: No midline or flank tenderness. Ext: No cyanosis, or edema. Neur: Encephalopathic Psych: Calm ID ASSESSMENT 1. Sepsis w/transient hypotension, hypothermia, hypoxemia due to acute HCAP w/ mucous plugging + Yeast UTI 2. Acute hypoxic respiratory failure on chronic VDRF -> Per pulmonary notes suspect mucous plugging 3. Recurrent HCAP 4. Yeast UTI 5. ESRD-> HD dependent 6. Dysphagia -> Peg 7. Pressure Decub Ulcers = Stage II => See photos & wound care notes MRSA Nares -> Screening ordered ABX ALLERGIES: Erythromycin base, Vancomycin CURRENT ABX: Merrem #2 + Cancidas #1 ID RECOMMENDATIONS 1. Blood Cx (-) 24H, UA/Urine Cx (+)Yeast => Start Cancidas & Change FC if not done on admission 2. Respiratory culture 3. Continue Merrem 4. Follow pulmonary recs 5. Wound care consult pending * Thank you, further recommendations pending ID full consultation note. . Problems: Consultation Date/Type/Reason Admit Date/Time Jan 07, 2017 at 12:43 Initial Consult Date Type of Consultation: ID Exam/Review of Systems Vital Signs Vitals Vital Signs Date Time Temp Pulse Resp B/P Pulse Ox O2 Delivery O2 Flow Rate FiO2 01/08/17 09:00 72 25 98 60 01/08/17 07:23 98.4 93/57 01/07/17 20:30 Mechanical Ventilator Trach Collar Intake and Output 01/07/17 01/07/17 01/08/17 15:00 23:00 07:00 Intake Total 400 ml 60 ml Output Total 1800 ml Balance -1400 ml 60 ml Results Result Diagram: 01/08/17 0550 01/08/17 0550 Results 24 hrs Laboratory Tests Test 01/07/17 10:57 01/07/17 13:51 01/07/17 17:00 01/07/17 20:56 Bedside Glucose 93 Blood Gas Specimen Source Blood arterial Blood arterial Arterial Blood Date Drawn 01/07/2017 2:04:28 PM 01/07/2017 7:45:14 PM Arterial Blood pH (Temp corrected) 7.406 7.473 H Arterial Blood pCO2 (Temp correct) 38.1 38.4 Arterial Blood pO2 (Temp corrected) 76.8 L 84.1 Arterial Blood HCO3 23.4 27.5 H Arterial Blood Base Excess -1.1 3.7 H Arterial Blood Oxygen Saturation 94.6 L 96.4 Ivan Test ACCEPTAB ACCEPTAB Arterial Blood Gas Puncture Site Right Radial Right Radial Arterial Blood Carboxyhemoglobin 0.3 0.2 Arterial Blood Methemoglobin 0.3 0.2 Blood Gas A-a O2 Differential 598.1 H 301.5 H Oxyhemoglobin Percent 94.0 96.0 Total Hemoglobin 10.0 L 10.1 L Blood Gas Temperature 37.0 37.0 Blood Gas Respiration Rate 14.0 16.0 Blood Gas Actual Respiration Rate 22 23 Blood Gas Modality VENT - AC VENT - AC/VC+ FiO2 100.0 60.0 Blood Gas Tidal Volume 500.0 450.0 Blood Gas Low PEEP Setting 5.0 7.0 Blood Gas Notified Ivone MORALES Blood Gas Notified Time 01/07/2017 2:12:14 PM 01/07/2017 7:58:29 PM Blood Gas Inspiratory Time 0.8 Blood Gas Inspiratory Pressure 22.0 Lactic Acid Level 1.2 Test 01/07/17 23:38 01/08/17 05:50 01/08/17 06:16 Bedside Glucose 74 106 White Blood Count 10.0 Red Blood Count 2.98 L Hemoglobin 8.5 L Hematocrit 27.7 L Mean Corpuscular Volume 93.0 Mean Corpuscular Hemoglobin 28.5 L Mean Corpuscular Hemoglobin Concent 30.7 L Red Cell Distribution Width 19.5 H Platelet Count 231 Mean Platelet Volume 10.5 H Neutrophils % 75.3 Lymphocytes % 10.5 L Monocytes % 5.5 Eosinophils % 8.0 H Basophils % 0.2 Nucleated Red Blood Cells % 0.0 Neutrophils # 7.6 H Lymphocytes # 1.1 Monocytes # 0.6 Eosinophils # 0.8 H Basophils # 0.0 Nucleated Red Blood Cells # 0.0 Sodium Level 140 Potassium Level 3.2 L Chloride Level 99 Carbon Dioxide Level 26 Anion Gap 18 H Blood Urea Nitrogen 31 #H Creatinine 1.81 H Glucose Level 103 # Calcium Level 9.1 Phosphorus Level 2.6 Magnesium Level 1.9 Total Bilirubin 0.1 L Direct Bilirubin 0.00 Indirect Bilirubin 0.1 Aspartate Amino Transf (AST/SGOT) 24 Alanine Aminotransferase (ALT/SGPT) 18 Alkaline Phosphatase 65 Total Protein 7.6 Albumin 3.5 Globulin 4.10 H Albumin/Globulin Ratio 0.85 Medications Medications Current Medications Acetaminophen (Tylenol Liquid) 650 mg Q4H PRN GTB PAIN OR TEMP ABOVE 38C; Start 01/07/17 at 13:00 Amiodarone HCl (Cordarone) 200 mg DAILY GTB Last administered on 01/08/17 09:16 ; Admin Dose 200 MG; Start 01/07/17 at 13:00 Diphenhydramine HCl (Benadryl) 25 mg Q6H PRN GTB ITCHING; Start 01/07/17 at 13: 00 Albuterol/ Ipratropium (Duoneb) 3 ml Q2H PRN NEB WHEEZING AND SOB; Start at 13:00 Albuterol/ Ipratropium (Duoneb) 3 ml Q6 PRN NEB WHEEZING AND SOB Last administered on 01/08/17 00:54; Admin Dose 3 ML; Start 01/07/17 at 13:00 Multivit/Ca Carb/ B Cmplx/FA/Prenat (Macrina-Brigitte) 1 tab DAILY GTB Last administered on 01/08/17 09:16; Admin Dose 1 TAB; Start 01/08/17 at 09:00 Ondansetron HCl (Zofran Tab) 4 mg Q4H PRN GTB NAUSEA AND/OR VOMITING; Start 01/07/17 at 13:00 Sodium Phosphate (Kphos Neutral) 250 mg BID GTB Last administered on 01/08/17 09:18; Admin Dose 250 MG; Start 01/07/17 at 21:00 Miscellaneous Information 1 ea NOTE XX ; Start 01/07/17 at 23:45 Glucose (Glutose) 15 gm Q15M PRN PO DECREASED GLUCOSE; Start 01/07/17 at 23:45 Glucose (Glutose) 22.5 gm Q15M PRN PO DECREASED GLUCOSE; Start 01/07/17 at 23:45 Dextrose (D50w Syringe) 25 ml Q15M PRN IV DECREASED GLUCOSE; Start 01/07/17 at 23:45 Dextrose (D50w Syringe) 50 ml Q15M PRN IV DECREASED GLUCOSE; Start 01/07/17 at 23:45 Glucagon (Glucagen) 1 mg Q15M PRN IM DECREASED GLUCOSE; Start 01/07/17 at 23:45 Glucose (Glutose) 15 gm Q15M PRN BUCCAL DECREASED GLUCOSE; Start 01/07/17 at 23: 45 Miscellaneous Information This patient lopez... PRN PRN XX WOUND CARE; Start at 07:30 Meropenem (Merrem 500 Mg/ 100 ml (Pmx)) 100 ml @ 200 mls/hr Q24H IVPB ; Start 01/09/17 at 03:00 Insulin Aspart (Novolog Insulin Pen) NOVOLOG *MILD* ALGORI... Q6 SC ; Start 01/08 at 12:00 MARINO DELGADO NP Jan 08, 2017 10:47
[2017-01-08] MEDS ORDERED: CASPOFUNGIN 70 MG in SOD CHLORIDE 0.9% 250 ML IVPB ONE (12:00)
--- NOTE | 2017-01-08 13:31 | CONS ---
Date/Time of Note Date/Time of Note DATE: 01/08/17 TIME: 13:20 Assessment/Plan Assessment/Plan Additional Assessment/Plan 1. acute on chronic hypoxemic hypercapnic respiratory failure: s/p trach: vent dep. 2. Pafib; currently remains in NSR 3. HX Sick sinus syndrome: s/p PPM 4. ? Pacemaker malfunction. 5. ESRD on HD 6. HX HTN: stable now 7. severe anemia 8. pneumonia. cont vent support will interrogate the device tomorrow. not anticoagulated due to concerns about bleeding and severe anemia. abx as per IM/ ID and pulm team will cont to monitor on telel Thank you for this referral. I will continue to follow along with you. Consultation Date/Type/Reason Admit Date/Time Jan 07, 2017 at 12:43 Date of Consultation: Jan 08, 2017 Type of Consultation: CARDIOLOGY Reason for Consultation arrhythmia. Pafib. sick sinus syndrome s/p PPM Referring Provider: CHARLIE BUSBY DO Hx of Present Illness Thank you for this referral. History obtained from the patient's chart, extensive review of the old chart, discussion with Dr. Busby, discussion with the staff and physicians. This is a 66-year-old unfortunate female with multiple complicated medical history who was admitted to the hospital with increasing respiratory failure. The patient is not able to provide any history to me. Denies any chest pain or pressure to me. Patient has a history of arrhythmias and has a pacemaker. On the monitor she was noted to have what appeared to be me since on the pacemaker. I was kindly asked to evaluate to the patient. PAST MEDICAL HISTORY: The patient has a history of breast cancer status post bilateral mastectomy in 1992. Recently admitted to [facility] for respiratory failure secondary to pneumonia. During the hospital course had a complicated course including Clostridium difficile colitis and tachycardia with tracheostomy and PEG placement. She was transferred to [facility] for higher level of care. Noted in ER to have CHF versus pulmonary edema, renal failure and decide to be dialyzed. She also has critical care polyneuropathy which was confirmed by EMG apparently. Has had multiple infections. SAHIL done at [facility] and review of the old chart did not show any evidence of endocarditis. She also has history of paroxysmal atrial fibrillation and previously on anticoagulation. Patient has a history of [place] permanent pacemaker. Previously was on anticoagulation, but it has been discontinued since the patient has had severe anemia and bleeding. SURGICAL HISTORY: Tracheostomy, PEG placement and PermCath placement. Permanent pacemaker placement. I believe it is a [employer] device ROS: as above only FAMILY HISTORY: No reported coronary artery disease. SOCIAL HISTORY: The patient with no alcohol use as far as we can see. ALLERGIES: 1. ERYTHROMYCIN. 2. MORPHINE. 3. VANCOMYCIN. Social History Alcohol Use: none Smoking Status: Unknown if ever smoked Drug Use: none Exam/Review of Systems Vital Signs Vitals Vital Signs Date Time Temp Pulse Resp B/P Pulse Ox O2 Delivery O2 Flow Rate FiO2 01/08/17 12:51 82 01/08/17 11:20 25 100 60 01/08/17 11:17 98.3 91/55 01/07/17 20:30 Mechanical Ventilator Trach Collar Intake and Output 01/07/17 01/07/17 01/08/17 15:00 23:00 07:00 Intake Total 400 ml 60 ml Output Total 1800 ml Balance -1400 ml 60 ml Exam General: s/p trach on vent. HEENT: NC/AT. pupils are equal. round. NECK: s/p trach. no stridor. CV: RRR. systolic murmur; no gallop or rubs. PULM: no wheezing but + rhonchi anteriorly GI: SOFT, NT, ND, no rebound or guarding . s/p PEG Extremity: trace B/L LE edema. no clubbing. neuro: awake and alert Psych: calm and pleasant rectal: deferred Derm: diffuse echymosis Results Result Diagram: 01/08/17 0550 01/08/17 0550 Results 24 hrs Laboratory Tests Test 01/07/17 13:51 01/07/17 17:00 01/07/17 20:56 01/07/17 23:38 Blood Gas Specimen Source Blood arterial Blood arterial Arterial Blood Date Drawn 01/07/2017 2:04:28 PM 01/07/2017 7:45:14 PM Arterial Blood pH (Temp corrected) 7.406 7.473 H Arterial Blood pCO2 (Temp correct) 38.1 38.4 Arterial Blood pO2 (Temp corrected) 76.8 L 84.1 Arterial Blood HCO3 23.4 27.5 H Arterial Blood Base Excess -1.1 3.7 H Arterial Blood Oxygen Saturation 94.6 L 96.4 Ivan Test ACCEPTAB ACCEPTAB Arterial Blood Gas Puncture Site Right Radial Right Radial Arterial Blood Carboxyhemoglobin 0.3 0.2 Arterial Blood Methemoglobin 0.3 0.2 Blood Gas A-a O2 Differential 598.1 H 301.5 H Oxyhemoglobin Percent 94.0 96.0 Total Hemoglobin 10.0 L 10.1 L Blood Gas Temperature 37.0 37.0 Blood Gas Respiration Rate 14.0 16.0 Blood Gas Actual Respiration Rate 22 23 Blood Gas Modality VENT - AC VENT - AC/VC+ FiO2 100.0 60.0 Blood Gas Tidal Volume 500.0 450.0 Blood Gas Low PEEP Setting 5.0 7.0 Blood Gas Notified Whom Ran MORALES Blood Gas Notified Time 01/07/2017 2:12:14 PM 01/07/2017 7:58:29 PM Blood Gas Inspiratory Time 0.8 Blood Gas Inspiratory Pressure 22.0 Lactic Acid Level 1.2 Bedside Glucose 74 Test 01/08/17 05:50 01/08/17 06:16 01/08/17 12:03 White Blood Count 10.0 Red Blood Count 2.98 L Hemoglobin 8.5 L Hematocrit 27.7 L Mean Corpuscular Volume 93.0 Mean Corpuscular Hemoglobin 28.5 L Mean Corpuscular Hemoglobin Concent 30.7 L Red Cell Distribution Width 19.5 H Platelet Count 231 Mean Platelet Volume 10.5 H Neutrophils % 75.3 Lymphocytes % 10.5 L Monocytes % 5.5 Eosinophils % 8.0 H Basophils % 0.2 Nucleated Red Blood Cells % 0.0 Neutrophils # 7.6 H Lymphocytes # 1.1 Monocytes # 0.6 Eosinophils # 0.8 H Basophils # 0.0 Nucleated Red Blood Cells # 0.0 Sodium Level 140 Potassium Level 3.2 L Chloride Level 99 Carbon Dioxide Level 26 Anion Gap 18 H Blood Urea Nitrogen 31 #H Creatinine 1.81 H Glucose Level 103 # Calcium Level 9.1 Phosphorus Level 2.6 Magnesium Level 1.9 Total Bilirubin 0.1 L Direct Bilirubin 0.00 Indirect Bilirubin 0.1 Aspartate Amino Transf (AST/SGOT) 24 Alanine Aminotransferase (ALT/SGPT) 18 Alkaline Phosphatase 65 Total Protein 7.6 Albumin 3.5 Globulin 4.10 H Albumin/Globulin Ratio 0.85 Bedside Glucose 106 125 Medications Medications Current Medications Acetaminophen (Tylenol Liquid) 650 mg Q4H PRN GTB PAIN OR TEMP ABOVE 38C; Start 01/07/17 at 13:00 Amiodarone HCl (Cordarone) 200 mg DAILY GTB Last administered on 01/08/17 09:16 ; Admin Dose 200 MG; Start 01/07/17 at 13:00 Diphenhydramine HCl (Benadryl) 25 mg Q6H PRN GTB ITCHING; Start 01/07/17 at 13: 00 Albuterol/ Ipratropium (Duoneb) 3 ml Q2H PRN NEB WHEEZING AND SOB; Start at 13:00 Albuterol/ Ipratropium (Duoneb) 3 ml Q6 PRN NEB WHEEZING AND SOB Last administered on 01/08/17 00:54; Admin Dose 3 ML; Start 01/07/17 at 13:00 Multivit/Ca Carb/ B Cmplx/FA/Prenat (Macrina-Brigitte) 1 tab DAILY GTB Last administered on 01/08/17 09:16; Admin Dose 1 TAB; Start 01/08/17 at 09:00 Ondansetron HCl (Zofran Tab) 4 mg Q4H PRN GTB NAUSEA AND/OR VOMITING; Start 01/07/17 at 13:00 Sodium Phosphate (Kphos Neutral) 250 mg BID GTB Last administered on 01/08/17 09:18; Admin Dose 250 MG; Start 01/07/17 at 21:00 Miscellaneous Information 1 ea NOTE XX ; Start 01/07/17 at 23:45 Glucose (Glutose) 15 gm Q15M PRN PO DECREASED GLUCOSE; Start 01/07/17 at 23:45 Glucose (Glutose) 22.5 gm Q15M PRN PO DECREASED GLUCOSE; Start 01/07/17 at 23:45 Dextrose (D50w Syringe) 25 ml Q15M PRN IV DECREASED GLUCOSE; Start 01/07/17 at 23:45 Dextrose (D50w Syringe) 50 ml Q15M PRN IV DECREASED GLUCOSE; Start 01/07/17 at 23:45 Glucagon (Glucagen) 1 mg Q15M PRN IM DECREASED GLUCOSE; Start 01/07/17 at 23:45 Glucose (Glutose) 15 gm Q15M PRN BUCCAL DECREASED GLUCOSE; Start 01/07/17 at 23: 45 Miscellaneous Information This patient lopez... PRN PRN XX WOUND CARE; Start at 07:30 Meropenem (Merrem 500 Mg/ 100 ml (Pmx)) 100 ml @ 200 mls/hr Q24H IVPB ; Start 01/09/17 at 03:00 Insulin Aspart NOVOLOG *MILD* ALGORI... Q6 SC ; Start 01/08/17 at 12:00 Caspofungin/ Sodium Chloride (Cancidas/NS) 250 ml @ 250 mls/hr Q24H IVPB ; Start 01/09/17 at 12:00 KIAH GARCIA MD Jan 08, 2017 13:31
--- NOTE | 2017-01-08 13:46 | CONS ---
Date/Time of Note Date/Time of Note DATE: 01/08/17 TIME: 13:44 Consult Date/Type/Reason Admit Date/Time Jan 07, 2017 at 12:43 Initial Consult Date 01/08/17 Type of Consultation: pulm Ordering Provider: CHARLIE BUSBY DO Subjective No events. Down-graded to tele. FiO2 at 50% Objective Vital Signs Date Time Temp Pulse Resp B/P Pulse Ox O2 Delivery O2 Flow Rate FiO2 01/08/17 12:51 82 01/08/17 11:20 25 100 60 01/08/17 11:17 98.3 91/55 01/07/17 20:30 Mechanical Ventilator Trach Collar Intake and Output 01/07/17 01/07/17 01/08/17 15:00 23:00 07:00 Intake Total 400 ml 60 ml Output Total 1800 ml Balance -1400 ml 60 ml Exam HEENT: Neck supple; no JVD; no LAD; trach site clean CVS: Irreg, S1 and S2 CHEST: Coarse BS ABD: Soft, NT, + BS EXT: No c/c/e Results/Medications Result Diagram: 01/08/17 0550 01/08/17 0550 Results 24 hrs Laboratory Tests Test 01/07/17 13:51 01/07/17 17:00 01/07/17 20:56 01/07/17 23:38 Blood Gas Specimen Source Blood arterial Blood arterial Arterial Blood Date Drawn 01/07/2017 2:04:28 PM 01/07/2017 7:45:14 PM Arterial Blood pH (Temp corrected) 7.406 7.473 H Arterial Blood pCO2 (Temp correct) 38.1 38.4 Arterial Blood pO2 (Temp corrected) 76.8 L 84.1 Arterial Blood HCO3 23.4 27.5 H Arterial Blood Base Excess -1.1 3.7 H Arterial Blood Oxygen Saturation 94.6 L 96.4 Ivan Test ACCEPTAB ACCEPTAB Arterial Blood Gas Puncture Site Right Radial Right Radial Arterial Blood Carboxyhemoglobin 0.3 0.2 Arterial Blood Methemoglobin 0.3 0.2 Blood Gas A-a O2 Differential 598.1 H 301.5 H Oxyhemoglobin Percent 94.0 96.0 Total Hemoglobin 10.0 L 10.1 L Blood Gas Temperature 37.0 37.0 Blood Gas Respiration Rate 14.0 16.0 Blood Gas Actual Respiration Rate 22 23 Blood Gas Modality VENT - AC VENT - AC/VC+ FiO2 100.0 60.0 Blood Gas Tidal Volume 500.0 450.0 Blood Gas Low PEEP Setting 5.0 7.0 Blood Gas Notified Whom Ran MORALES Blood Gas Notified Time 01/07/2017 2:12:14 PM 01/07/2017 7:58:29 PM Blood Gas Inspiratory Time 0.8 Blood Gas Inspiratory Pressure 22.0 Lactic Acid Level 1.2 Bedside Glucose 74 Test 01/08/17 05:50 01/08/17 06:16 01/08/17 12:03 White Blood Count 10.0 Red Blood Count 2.98 L Hemoglobin 8.5 L Hematocrit 27.7 L Mean Corpuscular Volume 93.0 Mean Corpuscular Hemoglobin 28.5 L Mean Corpuscular Hemoglobin Concent 30.7 L Red Cell Distribution Width 19.5 H Platelet Count 231 Mean Platelet Volume 10.5 H Neutrophils % 75.3 Lymphocytes % 10.5 L Monocytes % 5.5 Eosinophils % 8.0 H Basophils % 0.2 Nucleated Red Blood Cells % 0.0 Neutrophils # 7.6 H Lymphocytes # 1.1 Monocytes # 0.6 Eosinophils # 0.8 H Basophils # 0.0 Nucleated Red Blood Cells # 0.0 Sodium Level 140 Potassium Level 3.2 L Chloride Level 99 Carbon Dioxide Level 26 Anion Gap 18 H Blood Urea Nitrogen 31 #H Creatinine 1.81 H Glucose Level 103 # Calcium Level 9.1 Phosphorus Level 2.6 Magnesium Level 1.9 Total Bilirubin 0.1 L Direct Bilirubin 0.00 Indirect Bilirubin 0.1 Aspartate Amino Transf (AST/SGOT) 24 Alanine Aminotransferase (ALT/SGPT) 18 Alkaline Phosphatase 65 Total Protein 7.6 Albumin 3.5 Globulin 4.10 H Albumin/Globulin Ratio 0.85 Bedside Glucose 106 125 Medications Current Medications Acetaminophen (Tylenol Liquid) 650 mg Q4H PRN GTB PAIN OR TEMP ABOVE 38C; Start 01/07/17 at 13:00 Amiodarone HCl (Cordarone) 200 mg DAILY GTB Last administered on 01/08/17t 09:16 ; Admin Dose 200 MG; Start 01/07/17 at 13:00 Diphenhydramine HCl (Benadryl) 25 mg Q6H PRN GTB ITCHING; Start 01/07/17 at 13: 00 Albuterol/ Ipratropium (Duoneb) 3 ml Q2H PRN NEB WHEEZING AND SOB; Start at 13:00 Albuterol/ Ipratropium (Duoneb) 3 ml Q6 PRN NEB WHEEZING AND SOB Last administered on 01/08/17 00:54; Admin Dose 3 ML; Start 01/07/17 at 13:00 Multivit/Ca Carb/ B Cmplx/FA/Prenat (Macrina-Brigitte) 1 tab DAILY GTB Last administered on 01/08/17 09:16; Admin Dose 1 TAB; Start 01/08/17 at 09:00 Ondansetron HCl (Zofran Tab) 4 mg Q4H PRN GTB NAUSEA AND/OR VOMITING; Start 01/07/17 at 13:00 Sodium Phosphate (Kphos Neutral) 250 mg BID GTB Last administered on 01/08/17 09:18; Admin Dose 250 MG; Start 01/07/17 at 21:00 Miscellaneous Information 1 ea NOTE XX ; Start 01/07/17 at 23:45 Glucose (Glutose) 15 gm Q15M PRN PO DECREASED GLUCOSE; Start 01/07/17 at 23:45 Glucose (Glutose) 22.5 gm Q15M PRN PO DECREASED GLUCOSE; Start 01/07/17 at 23:45 Dextrose (D50w Syringe) 25 ml Q15M PRN IV DECREASED GLUCOSE; Start 01/07/17 at 23:45 Dextrose (D50w Syringe) 50 ml Q15M PRN IV DECREASED GLUCOSE; Start 01/07/17 at 23:45 Glucagon (Glucagen) 1 mg Q15M PRN IM DECREASED GLUCOSE; Start 01/07/17 at 23:45 Glucose (Glutose) 15 gm Q15M PRN BUCCAL DECREASED GLUCOSE; Start 01/07/17 at 23: 45 Miscellaneous Information This patient lopez... PRN PRN XX WOUND CARE; Start at 07:30 Meropenem (Merrem 500 Mg/ 100 ml (Pmx)) 100 ml @ 200 mls/hr Q24H IVPB ; Start 01/09/17 at 03:00 Insulin Aspart NOVOLOG *MILD* ALGORI... Q6 SC ; Start 01/08/17 at 12:00 Caspofungin/ Sodium Chloride (Cancidas/NS) 250 ml @ 250 mls/hr Q24H IVPB ; Start 01/09/17 at 12:00 Assessment/Plan Chief Complaint/Hosp Course Briefly, this is a 66-year-old female with a past medical history of breast cancer status post bilateral mastectomy in 1982 s/p prolonged hospital course recently at [place], [facility], and [facility], with ARDS leading to chronic resp failure s/p trach and PEG, complicated by C. difficile colitis, acute renal failure on dialysis and critical care polyneuropathy who now presents from SNF with hypoxemic resp failure requiring high FiO2. Problems: Additional Assessment/Plan IMP: 1. Acute on chronic Hypoxemic Resp Failure: suspect due to mucus plugging. Doubt PE 2. UTI 3. VDRF 4. ESRD on HD RECS: 1. Vent--> titrate FiO2 and lower PEEP to 5 2. Repeat ABG on these settings 3. BD's/CPT 4. Continue Meropenem and de-escalate pending cx's LEIDA LINARES MD Jan 08, 2017 13:46
[2017-01-08 14:50] LABS: AADO2 Arterial 332.9 mmHg (7.0-24.0); Arterial COHb 0.2 % (0.0-3.0); Arterial Fraction of Oxyhgb 98.2 % (93.0-99.0); Arterial HCO3 19.3 mmol/L (22.0-26.0); Arterial MetHb 0.3 % (0.0-1.5); Arterial Total Hemglobin 9.6 g/dl (12.0-18.0); MODE VENT - AC
[2017-01-08] MEDS: DIPHENHYDRAMINE 25 MG CAP GTB PRN (22:17)
[2017-01-09] VITALS (33 sets, daily range): BP systolic 113–144; BP diastolic 57–77; PULSE 75–94; RESP 18–30
[2017-01-09] MEDS ORDERED: MEROPENEM 500 MG/100 ML (PMX) 100 ML IVPB SCH (03:00)
[2017-01-09 05:54] LABS: BASOPHILS % 0.2 % (0.0-2.0); EOSINOPHILS # 0.9 10^3/ul (0.0-0.5); EOSINOPHILS % 7.5 % (0.0-7.0); HEMATOCRIT 26.5 % (37.0-47.0); HEMOGLOBIN 8.3 g/dl (12.0-16.0); LYMPHOCYTES # 1.4 10^3/ul (0.8-2.9); LYMPHOCYTES % 12.4 % (15.0-51.0); MEAN CORPUSCULAR HGB CONC 31.3 g/dl (32.0-37.0); MEAN CORPUSCULAR VOLUME 92.7 fl (82.0-101.0); MEAN PLATELET VOLUME 11.2 fl (7.4-10.4); MONOCYTE # 0.8 10^3/ul (0.3-0.9); MONOCYTES % 6.9 % (0.0-11.0); NEUTROPHIL # 8.4 10^3/ul (1.6-7.5); NEUTROPHILS % 72.5 % (39.0-77.0); PLATELET COUNT 269 10^3/UL (140-415); RED BLOOD COUNT 2.86 10^6/ul (4.20-5.40); RED CELL DISTRIBUTION WIDTH 19.6 % (11.5-14.5); WHITE BLOOD COUNT 11.6 10^3/ul (4.8-10.8)
[2017-01-09] MEDS: INSULIN ASPART [NOVOLOG] 3 ML PEN SC SCH ×4 (06:00→17:03)
[2017-01-09] MEDS: DIPHENHYDRAMINE 25 MG CAP GTB PRN (06:23)
[2017-01-09 08:17] LABS: CALCIUM 9.3 mg/dl (8.4-10.2); CREATININE 2.36 mg/dl (0.44-1.00); MAGNESIUM 1.9 mg/dl (1.7-2.5); PHOSPHORUS 2.5 mg/dl (2.5-4.9); POTASSIUM 4.1 mmol/L (3.5-5.1)
--- NOTE | 2017-01-09 08:59 | PN ---
Date/Time of Note Date/Time of Note DATE: 01/09/17 TIME: 08:57 Assessment/Plan VTE Prophylaxis VTE Prophylaxis Intervention: ambulation, other Lines/Catheters IV [facility]from [facility] PERMACATH Urinary Cath still in place: Yes Reason Cath still needed: other (indicate) Assessment/Plan Chief Complaint/Hosp Course 1. hypoxemic respiratory failure. etiology likely multifactorial, chf, ? pna, mucus plug -Vent settings have been reviewed. FiO2 levels coming down -Follow-up with pulmonary for vent management 2. Possible sepsis. Secondary to UTI questionable pneumonia. Urinalysis positive for pyuria. Urine culture is positive y yeast. chest x- ray suggests possible infiltrate -Continue antibiotic therapy. Continue antifungal therapy. Follow-up with infectious disease 3. Encephalopathy, acute. Etiology is likely secondary to toxic metabolic -Mental status appears to be improving continue to monitor 4. Dysphagia, status post percutaneous endoscopic gastrostomy. -resume tube feeding. 5. ESRD -HD today 7. Atrial fibrillation, currently rate controlled. Continue medical management. Continue Eliquis. Continue beta louise. We will follow up with cardiology. 8. Anemia. Continue to monitor hemoglobin and hematocrit levels. Continue Epogen 9. Mineral bone disease. Continue to monitor calcium and phosphorus levels. 10. History of breast cancer status post bilateral mastectomy. 11. Congestive heart failure. Continue medical management. 12. Diabetes. Continue Accu-Cheks and sliding scale. 13. History of Clostridium difficile colitis, status post treatment. 14. Gastrointestinal and deep venous thrombosis prophylaxis. Continue Protonix , Eliquis. 15. Hypokalemia replete with potassium chloride Please note I spent over 20 minutes of time with the patient patient's daughter discussing CODE STATUS patient is full code Problems: Subjective 24 Hr Interval Summary Free Text/Dictation Patient seen and examined. No acute events noted overnight patient on hemodialysis Exam/Review of Systems Vital Signs Vitals Vital Signs Date Time Temp Pulse Resp B/P Pulse Ox O2 Delivery O2 Flow Rate FiO2 01/09/17 08:22 86 01/09/17 07:30 30 96 50 01/09/17 07:12 98.6 124/65 01/07/17 20:30 Mechanical Ventilator Trach Collar Intake and Output 01/08/17 01/08/17 01/09/17 15:00 23:00 07:00 Intake Total 350 ml 650 ml 60 ml Output Total 100 ml 100 ml Balance 350 ml 550 ml -40 ml Exam HEENT: Head is normocephalic. NECK: Supple. HEART: Regular rate. LUNGS: Show diminished breath sounds at the base. ABDOMEN: Soft, nontender to palpation. Positive PEG. EXTREMITIES: Negative for clubbing, cyanosis, no edema. DERMATOLOGIC: No rashes. MUSCULOSKELETAL: No joint effusions. NEUROLOGIC: No change in exam. No obvious focal deficits. Results Result Diagram: 01/09/17 0535 01/09/17 0530 Results 24 hrs Laboratory Tests Test 01/08/17 12:03 01/08/17 16:56 01/09/17 01:30 01/09/17 05:30 Bedside Glucose 125 101 125 Sodium Level 142 Potassium Level 4.1 Chloride Level 102 Carbon Dioxide Level 23 Anion Gap 21 H Blood Urea Nitrogen 46 #H Creatinine 2.36 H Glucose Level 119 Calcium Level 9.3 Phosphorus Level 2.5 Magnesium Level 1.9 Test 01/09/17 05:35 01/09/17 06:02 White Blood Count 11.6 H Red Blood Count 2.86 L Hemoglobin 8.3 L Hematocrit 26.5 L Mean Corpuscular Volume 92.7 Mean Corpuscular Hemoglobin 29.0 Mean Corpuscular Hemoglobin Concent 31.3 L Red Cell Distribution Width 19.6 H Platelet Count 269 Mean Platelet Volume 11.2 H Neutrophils % 72.5 Lymphocytes % 12.4 L Monocytes % 6.9 Eosinophils % 7.5 H Basophils % 0.2 Nucleated Red Blood Cells % 0.0 Neutrophils # 8.4 H Lymphocytes # 1.4 Monocytes # 0.8 Eosinophils # 0.9 H Basophils # 0.0 Nucleated Red Blood Cells # 0.0 Bedside Glucose 134 Medications Medications Current Medications Acetaminophen (Tylenol Liquid) 650 mg Q4H PRN GTB PAIN OR TEMP ABOVE 38C; Start 01/07/17 at 13:00 Amiodarone HCl (Cordarone) 200 mg DAILY GTB Last administered on 01/08/17 09:16 ; Admin Dose 200 MG; Start 01/07/17 at 13:00 Diphenhydramine HCl (Benadryl) 25 mg Q6H PRN GTB ITCHING Last administered on 06:23; Admin Dose 25 MG; Start 01/07/17 at 13:00 Albuterol/ Ipratropium (Duoneb) 3 ml Q2H PRN NEB WHEEZING AND SOB; Start at 13:00 Albuterol/ Ipratropium (Duoneb) 3 ml Q6 PRN NEB WHEEZING AND SOB Last administered on 01/08/17 00:54; Admin Dose 3 ML; Start 01/07/17 at 13:00 Multivit/Ca Carb/ B Cmplx/FA/Prenat (Macrina-Brigitte) 1 tab DAILY GTB Last administered on 01/08/17 09:16; Admin Dose 1 TAB; Start 01/08/17 at 09:00 Ondansetron HCl (Zofran Tab) 4 mg Q4H PRN GTB NAUSEA AND/OR VOMITING; Start 01/07/17 at 13:00 Sodium Phosphate (Kphos Neutral) 250 mg BID GTB Last administered on 01/08/17 21:43; Admin Dose 250 MG; Start 01/07/17 at 21:00 Miscellaneous Information 1 ea NOTE XX ; Start 01/07/17 at 23:45 Glucose (Glutose) 15 gm Q15M PRN PO DECREASED GLUCOSE; Start 01/07/17 at 23:45 Glucose (Glutose) 22.5 gm Q15M PRN PO DECREASED GLUCOSE; Start 01/07/17 at 23:45 Dextrose (D50w Syringe) 25 ml Q15M PRN IV DECREASED GLUCOSE; Start 01/07/17 at 23:45 Dextrose (D50w Syringe) 50 ml Q15M PRN IV DECREASED GLUCOSE; Start 01/07/17 at 23:45 Glucagon (Glucagen) 1 mg Q15M PRN IM DECREASED GLUCOSE; Start 01/07/17 at 23:45 Glucose (Glutose) 15 gm Q15M PRN BUCCAL DECREASED GLUCOSE; Start 01/07/17 at 23: 45 Miscellaneous Information This patient lopez... PRN PRN XX WOUND CARE; Start at 07:30 Meropenem (Merrem 500 Mg/ 100 ml (Pmx)) 100 ml @ 200 mls/hr Q24H IVPB Last administered on 01/09/17 03:50; Admin Dose 200 MLS/HR; Start 01/09/17 at 03:00 Insulin Aspart NOVOLOG *MILD* ALGORI... Q6 SC ; Start 01/08/17 at 12:00 Caspofungin/ Sodium Chloride (Cancidas/NS) 250 ml @ 250 mls/hr Q24H IVPB ; Start 01/09/17 at 12:00 CHARLIE BUSBY DO Jan 09, 2017 08:58
[2017-01-09] MEDS: AMIODARONE 200 MG TAB GTB SCH (10:56)
[2017-01-09] MEDS: MULTIVIT/CA CARB/B CMPLX/FA TAB GTB SCH (10:56)
[2017-01-09] MEDS: SOD PHOS MONO/DIBAS 250 MG TAB GTB SCH ×2 (10:56→21:27)
[2017-01-09] MEDS: LANSOPRAZOLE 30 MG CAP GTB SCH (10:57)
--- NOTE | 2017-01-09 11:34 | CONS ---
Date/Time of Note Date/Time of Note DATE: 01/09/17 TIME: 11:33 Consult Date/Type/Reason Admit Date/Time Jan 07, 2017 at 12:43 Initial Consult Date 01/08/17 Type of Consultation: pulm Ordering Provider: CHARLIE BUSBY DO Subjective Patient appears comfortable with no acute distress continues FiO2 of 50% on mechanical ventilation Objective Vital Signs Date Time Temp Pulse Resp B/P Pulse Ox O2 Delivery O2 Flow Rate FiO2 01/09/17 11:05 98.0 80 18 132/72 96 01/09/17 09:41 50 01/07/17 20:30 Mechanical Ventilator Trach Collar Intake and Output 01/08/17 01/08/17 01/09/17 15:00 23:00 07:00 Intake Total 350 ml 650 ml 60 ml Output Total 100 ml 100 ml Balance 350 ml 550 ml -40 ml Exam PHYSICAL EXAMINATION GENERAL: Elderly lady on mechanical ventilation via tracheostomy VITAL SIGNS: see below. HEENT: Pupils equal, round, and reactive to light. Tracheostomy site clean and intact. CARDIAC: S1, S2, 1/6 systolic ejection murmur CHEST: Diminished air entry bilaterally. ABDOMEN: Mildly distended. Bowel sounds present no guarding or rebound EXTREMITIES: No cyanosis, clubbing edema +1 NEUROLOGIC: Generalized weakness Results/Medications Result Diagram: 01/09/17 0535 01/09/17 0530 Results 24 hrs Laboratory Tests Test 01/08/17 12:03 01/08/17 16:56 01/09/17 01:30 01/09/17 05:30 Bedside Glucose 125 101 125 Sodium Level 142 Potassium Level 4.1 Chloride Level 102 Carbon Dioxide Level 23 Anion Gap 21 H Blood Urea Nitrogen 46 #H Creatinine 2.36 H Glucose Level 119 Calcium Level 9.3 Phosphorus Level 2.5 Magnesium Level 1.9 Test 01/09/17 05:35 01/09/17 06:02 White Blood Count 11.6 H Red Blood Count 2.86 L Hemoglobin 8.3 L Hematocrit 26.5 L Mean Corpuscular Volume 92.7 Mean Corpuscular Hemoglobin 29.0 Mean Corpuscular Hemoglobin Concent 31.3 L Red Cell Distribution Width 19.6 H Platelet Count 269 Mean Platelet Volume 11.2 H Neutrophils % 72.5 Lymphocytes % 12.4 L Monocytes % 6.9 Eosinophils % 7.5 H Basophils % 0.2 Nucleated Red Blood Cells % 0.0 Neutrophils # 8.4 H Lymphocytes # 1.4 Monocytes # 0.8 Eosinophils # 0.9 H Basophils # 0.0 Nucleated Red Blood Cells # 0.0 Bedside Glucose 134 Medications Current Medications Acetaminophen (Tylenol Liquid) 650 mg Q4H PRN GTB PAIN OR TEMP ABOVE 38C; Start 01/07/17 at 13:00 Amiodarone HCl (Cordarone) 200 mg DAILY GTB Last administered on 01/09/17 10:56 ; Admin Dose 200 MG; Start 01/07/17 at 13:00 Diphenhydramine HCl (Benadryl) 25 mg Q6H PRN GTB ITCHING Last administered on 06:23; Admin Dose 25 MG; Start 01/07/17 at 13:00 Albuterol/ Ipratropium (Duoneb) 3 ml Q2H PRN NEB WHEEZING AND SOB; Start at 13:00 Albuterol/ Ipratropium (Duoneb) 3 ml Q6 PRN NEB WHEEZING AND SOB Last administered on 01/08/17 00:54; Admin Dose 3 ML; Start 01/07/17 at 13:00 Multivit/Ca Carb/ B Cmplx/FA/Prenat (Macrina-Brigitte) 1 tab DAILY GTB Last administered on 01/09/17 10:56; Admin Dose 1 TAB; Start 01/08/17 at 09:00 Ondansetron HCl (Zofran Tab) 4 mg Q4H PRN GTB NAUSEA AND/OR VOMITING; Start 01/07/17 at 13:00 Sodium Phosphate (Kphos Neutral) 250 mg BID GTB Last administered on 01/09/17 10:56; Admin Dose 250 MG; Start 01/07/17 at 21:00 Miscellaneous Information 1 ea NOTE XX ; Start 01/07/17 at 23:45 Glucose (Glutose) 15 gm Q15M PRN PO DECREASED GLUCOSE; Start 01/07/17 at 23:45 Glucose (Glutose) 22.5 gm Q15M PRN PO DECREASED GLUCOSE; Start 01/07/17 at 23:45 Dextrose (D50w Syringe) 25 ml Q15M PRN IV DECREASED GLUCOSE; Start 01/07/17 at 23:45 Dextrose (D50w Syringe) 50 ml Q15M PRN IV DECREASED GLUCOSE; Start 01/07/17 at 23:45 Glucagon (Glucagen) 1 mg Q15M PRN IM DECREASED GLUCOSE; Start 01/07/17 at 23:45 Glucose (Glutose) 15 gm Q15M PRN BUCCAL DECREASED GLUCOSE; Start 01/07/17 at 23: 45 Miscellaneous Information This patient lopez... PRN PRN XX WOUND CARE; Start at 07:30 Meropenem (Merrem 500 Mg/ 100 ml (Pmx)) 100 ml @ 200 mls/hr Q24H IVPB Last administered on 01/09/17t 03:50; Admin Dose 200 MLS/HR; Start 01/09/17 at 03:00 Insulin Aspart NOVOLOG *MILD* ALGORI... Q6 SC ; Start 01/08/17 at 12:00 Caspofungin/ Sodium Chloride (Cancidas/NS) 250 ml @ 250 mls/hr Q24H IVPB ; Start 01/09/17 at 12:00 Assessment/Plan Chief Complaint/Hosp Course IMP: 1. Acute on chronic Hypoxemic Resp Failure: suspect due to mucus plugging. Doubt PE 2. UTI 3. VDRF 4. ESRD on HD RECS: 1. Vent--> titrate FiO2 and lower PEEP to 5 2. Repeat ABG on these settings 3. BD's/CPT 4. Continue Meropenem and de-escalate pending cx's Problems: RHONDA BUENROSTRO MD, [facility] Jan 09, 2017 11:34
[2017-01-09] MEDS: CASPOFUNGIN 50 MG in SOD CHLORIDE 0.9% 250 ML IVPB SCH (12:22)
[2017-01-09] MEDS: EPOETIN 4000 UNITS/1 ML INJ (ESRD) SC SCH (12:24)
--- NOTE | 2017-01-09 16:58 | PN ---
Date/Time of Note Date/Time of Note DATE: 01/09/17 TIME: 16:54 Assessment/Plan VTE Prophylaxis VTE Prophylaxis Intervention: other Lines/Catheters IV Catheter Type (from Nrsg): PERMACATH Urinary Cath still in place: Yes Reason Cath still needed: other (indicate) Assessment/Plan Assessment/Plan 1. acute on chronic hypoxemic hypercapnic respiratory failure: s/p trach: vent dep. 2. Pafib; currently remains in NSR 3. HX Sick sinus syndrome: s/p PPM: pacemaker was interrogated and personally reviewed on 01/08/17 with normal functioning pacemaker. 4. ? Pacemaker malfunction. 5. ESRD on HD 6. HX HTN: stable now 7. severe anemia 8. pneumonia. cont vent support not anticoagulated due to concerns about bleeding and severe anemia. abx as per IM/ ID and pulm team will cont to monitor on tele Subjective 24 Hr Interval Summary Free Text/Dictation d/ w staff and rhythm was reviewed. pt remains in NSR STILL on vent. Exam/Review of Systems Vital Signs Vitals Vital Signs Date Time Temp Pulse Resp B/P Pulse Ox O2 Delivery O2 Flow Rate FiO2 01/09/17 16:28 94 01/09/17 15:43 20 97 50 01/09/17 15:31 97.8 144/67 01/07/17 20:30 Mechanical Ventilator Trach Collar Intake and Output 01/08/17 01/08/17 01/09/17 15:00 23:00 07:00 Intake Total 350 ml 650 ml 60 ml Output Total 100 ml 100 ml Balance 350 ml 550 ml -40 ml Exam General: s/p trach on vent. HEENT: NC/AT. pupils are equal. round. NECK: s/p trach. no stridor. CV: RRR. systolic murmur; no gallop or rubs. PULM: no wheezing but + rhonchi anteriorly GI: SOFT, NT, ND, no rebound or guarding . s/p PEG Extremity: trace B/L LE edema. no clubbing. neuro: awake and alert Psych: calm and pleasant rectal: deferred Derm: diffuse echymosis Results Result Diagram: 01/09/17 0535 01/09/17 0530 Results 24 hrs Laboratory Tests Test 01/08/17 16:56 01/09/17 01:30 01/09/17 05:30 01/09/17 05:35 Bedside Glucose 101 125 Sodium Level 142 Potassium Level 4.1 Chloride Level 102 Carbon Dioxide Level 23 Anion Gap 21 H Blood Urea Nitrogen 46 #H Creatinine 2.36 H Glucose Level 119 Calcium Level 9.3 Phosphorus Level 2.5 Magnesium Level 1.9 White Blood Count 11.6 H Red Blood Count 2.86 L Hemoglobin 8.3 L Hematocrit 26.5 L Mean Corpuscular Volume 92.7 Mean Corpuscular Hemoglobin 29.0 Mean Corpuscular Hemoglobin Concent 31.3 L Red Cell Distribution Width 19.6 H Platelet Count 269 Mean Platelet Volume 11.2 H Neutrophils % 72.5 Lymphocytes % 12.4 L Monocytes % 6.9 Eosinophils % 7.5 H Basophils % 0.2 Nucleated Red Blood Cells % 0.0 Neutrophils # 8.4 H Lymphocytes # 1.4 Monocytes # 0.8 Eosinophils # 0.9 H Basophils # 0.0 Nucleated Red Blood Cells # 0.0 Test 01/09/17 06:02 01/09/17 11:51 Bedside Glucose 134 86 Medications Medications Current Medications Acetaminophen (Tylenol Liquid) 650 mg Q4H PRN GTB PAIN OR TEMP ABOVE 38C; Start 01/07/17 at 13:00 Amiodarone HCl (Cordarone) 200 mg DAILY GTB Last administered on 01/09/17 10:56 ; Admin Dose 200 MG; Start 01/07/17 at 13:00 Diphenhydramine HCl (Benadryl) 25 mg Q6H PRN GTB ITCHING Last administered on 06:23; Admin Dose 25 MG; Start 01/07/17 at 13:00 Albuterol/ Ipratropium (Duoneb) 3 ml Q2H PRN NEB WHEEZING AND SOB; Start at 13:00 Albuterol/ Ipratropium (Duoneb) 3 ml Q6 PRN NEB WHEEZING AND SOB Last administered on 01/08/17 00:54; Admin Dose 3 ML; Start 01/07/17 at 13:00 Multivit/Ca Carb/ B Cmplx/FA/Prenat (Macrina-Brigitte) 1 tab DAILY GTB Last administered on 01/09/17 10:56; Admin Dose 1 TAB; Start 01/08/17 at 09:00 Ondansetron HCl (Zofran Tab) 4 mg Q4H PRN GTB NAUSEA AND/OR VOMITING; Start 01/07/17 at 13:00 Sodium Phosphate (Kphos Neutral) 250 mg BID GTB Last administered on 01/09/17 10:56; Admin Dose 250 MG; Start 01/07/17 at 21:00 Miscellaneous Information 1 ea NOTE XX ; Start 01/07/17 at 23:45 Glucose (Glutose) 15 gm Q15M PRN PO DECREASED GLUCOSE; Start 01/07/17 at 23:45 Glucose (Glutose) 22.5 gm Q15M PRN PO DECREASED GLUCOSE; Start 01/07/17 at 23:45 Dextrose (D50w Syringe) 25 ml Q15M PRN IV DECREASED GLUCOSE; Start 01/07/17 at 23:45 Dextrose (D50w Syringe) 50 ml Q15M PRN IV DECREASED GLUCOSE; Start 01/07/17 at 23:45 Glucagon (Glucagen) 1 mg Q15M PRN IM DECREASED GLUCOSE; Start 01/07/17 at 23:45 Glucose (Glutose) 15 gm Q15M PRN BUCCAL DECREASED GLUCOSE; Start 01/07/17 at 23: 45 Miscellaneous Information This patient lopez... PRN PRN XX WOUND CARE; Start at 07:30 Meropenem (Merrem 500 Mg/ 100 ml (Pmx)) 100 ml @ 200 mls/hr Q24H IVPB Last administered on 01/09/17 03:50; Admin Dose 200 MLS/HR; Start 01/09/17 at 03:00 Insulin Aspart NOVOLOG *MILD* ALGORI... Q6 SC ; Start 01/08/17 at 12:00 Caspofungin/ Sodium Chloride (Cancidas/NS) 250 ml @ 250 mls/hr Q24H IVPB Last administered on 01/09/17 12:22; Admin Dose 250 MLS/HR; Start 01/09/17 at 12:00 KIAH GARCIA MD Jan 09, 2017 16:57
--- NOTE | 2017-01-09 18:35 | CONS ---
Date/Time of Note Date/Time of Note DATE: 01/09/17 TIME: 18:32 Assessment/Plan Assessment/Plan Chief Complaint/Hosp Course Subjective: No acute changes, patient is alert, looks comfortable Indwelling: Tracheostomy, PEG, permacath Antibiotics: Cancidas, meropenem Microbiology: Urine culture growing Dilcia glabrata Physical examination: Chronically ill-appearing elderly woman who is awake in no distress. Head atraumatic normocephalic, sclera nonicteric, neck is supple, tracheostomy present. Chest rise symmetrical, breath sounds diminished basis. Heart S1-S2. Abdomen soft, bowel tones present. Extremities no cyanosis Assessment: 1. Acute on chronic Hypoxemic Resp Failure: suspect due to mucus plugging 2. UTI 3. VDRF 4. ESRD on HD Plan: Clinically stable, continue on current antibiotics, follow final cultures , continue vent management as per pulmonary Problems: Consultation Date/Type/Reason Admit Date/Time Jan 07, 2017 at 12:43 Initial Consult Date 01/08/17 Type of Consultation: Infectious disease Referring Provider: CHARLIE BUSBY DO Exam/Review of Systems Vital Signs Vitals Vital Signs Date Time Temp Pulse Resp B/P Pulse Ox O2 Delivery O2 Flow Rate FiO2 01/09/17 17:50 73 23 97 50 01/09/17 15:31 97.8 144/67 01/07/17 20:30 Mechanical Ventilator Trach Collar Intake and Output 01/08/17 01/08/17 01/09/17 15:00 23:00 07:00 Intake Total 350 ml 650 ml 60 ml Output Total 100 ml 100 ml Balance 350 ml 550 ml -40 ml Results Result Diagram: 01/09/17 0535 01/09/17 0530 Results 24 hrs Laboratory Tests Test 01/09/17 01:30 01/09/17 05:30 01/09/17 05:35 01/09/17 06:02 Bedside Glucose 125 134 Sodium Level 142 Potassium Level 4.1 Chloride Level 102 Carbon Dioxide Level 23 Anion Gap 21 H Blood Urea Nitrogen 46 #H Creatinine 2.36 H Glucose Level 119 Calcium Level 9.3 Phosphorus Level 2.5 Magnesium Level 1.9 White Blood Count 11.6 H Red Blood Count 2.86 L Hemoglobin 8.3 L Hematocrit 26.5 L Mean Corpuscular Volume 92.7 Mean Corpuscular Hemoglobin 29.0 Mean Corpuscular Hemoglobin Concent 31.3 L Red Cell Distribution Width 19.6 H Platelet Count 269 Mean Platelet Volume 11.2 H Neutrophils % 72.5 Lymphocytes % 12.4 L Monocytes % 6.9 Eosinophils % 7.5 H Basophils % 0.2 Nucleated Red Blood Cells % 0.0 Neutrophils # 8.4 H Lymphocytes # 1.4 Monocytes # 0.8 Eosinophils # 0.9 H Basophils # 0.0 Nucleated Red Blood Cells # 0.0 Test 01/09/17 11:51 01/09/17 17:03 Bedside Glucose 86 115 Medications Medications Current Medications Acetaminophen (Tylenol Liquid) 650 mg Q4H PRN GTB PAIN OR TEMP ABOVE 38C; Start 01/07/17 at 13:00 Amiodarone HCl (Cordarone) 200 mg DAILY GTB Last administered on 01/09/17 10:56 ; Admin Dose 200 MG; Start 01/07/17 at 13:00 Diphenhydramine HCl (Benadryl) 25 mg Q6H PRN GTB ITCHING Last administered on 06:23; Admin Dose 25 MG; Start 01/07/17 at 13:00 Albuterol/ Ipratropium (Duoneb) 3 ml Q2H PRN NEB WHEEZING AND SOB; Start at 13:00 Albuterol/ Ipratropium (Duoneb) 3 ml Q6 PRN NEB WHEEZING AND SOB Last administered on 01/08/17 00:54; Admin Dose 3 ML; Start 01/07/17 at 13:00 Multivit/Ca Carb/ B Cmplx/FA/Prenat (Macrina-Brigitte) 1 tab DAILY GTB Last administered on 01/09/17 10:56; Admin Dose 1 TAB; Start 01/08/17 at 09:00 Ondansetron HCl (Zofran Tab) 4 mg Q4H PRN GTB NAUSEA AND/OR VOMITING; Start 01/07/17 at 13:00 Sodium Phosphate (Kphos Neutral) 250 mg BID GTB Last administered on 01/09/17 10:56; Admin Dose 250 MG; Start 01/07/17 at 21:00 Miscellaneous Information 1 ea NOTE XX ; Start 01/07/17 at 23:45 Glucose (Glutose) 15 gm Q15M PRN PO DECREASED GLUCOSE; Start 01/07/17 at 23:45 Glucose (Glutose) 22.5 gm Q15M PRN PO DECREASED GLUCOSE; Start 01/07/17 at 23:45 Dextrose (D50w Syringe) 25 ml Q15M PRN IV DECREASED GLUCOSE; Start 01/07/17 at 23:45 Dextrose (D50w Syringe) 50 ml Q15M PRN IV DECREASED GLUCOSE; Start 01/07/17 at 23:45 Glucagon (Glucagen) 1 mg Q15M PRN IM DECREASED GLUCOSE; Start 01/07/17 at 23:45 Glucose (Glutose) 15 gm Q15M PRN BUCCAL DECREASED GLUCOSE; Start 01/07/17 at 23: 45 Miscellaneous Information This patient lopez... PRN PRN XX WOUND CARE; Start at 07:30 Meropenem (Merrem 500 Mg/ 100 ml (Pmx)) 100 ml @ 200 mls/hr Q24H IVPB Last administered on 01/09/17 03:50; Admin Dose 200 MLS/HR; Start 01/09/17 at 03:00 Insulin Aspart NOVOLOG *MILD* ALGORI... Q6 SC ; Start 01/08/17 at 12:00 Caspofungin/ Sodium Chloride (Cancidas/NS) 250 ml @ 250 mls/hr Q24H IVPB Last administered on 01/09/17 12:22; Admin Dose 250 MLS/HR; Start 01/09/17 at 12:00 AI FUNEZ NP Jan 09, 2017 18:35
--- NOTE | 2017-01-09 21:27 | CONS ---
Date/Time of Note Date/Time of Note DATE: 01/09/17 TIME: 21:12 Consultation Date/Type/Reason Admit Date/Time Jan 07, 2017 at 12:43 Date of Consultation: Jan 07, 2017 Type of Consultation: Infectious disease Reason for Consultation Ventilator associated pneumonia, right lower lobe pneumonia, yeast urinary tract infection Referring Provider: YAYO EDGAR of Present Illness Patient is a 66-year-old white female who is admitted with a chief complaint on 01/07/2017 chief complaint of hypoxic respiratory failure. The patient is vent dependent and has end-stage renal disease. Upon admission her white count was 11,100 she was afebrile her urinalysis that was yellow turbid pH 5+1 leukocyte esterase 182 white cells 92 red cells a few hyalin casts many budding yeasts +2 urine protein +2 urine hemoglobin. Chest x-ray revealed mild pulmonary vascular congestion and increased markings in the right lower lobe. And aortic arterial sclerosis. Patient was begun treatment with Merrem and can situs. Initially admitted to the ICU and then transferred to the telemetry floor. Past medical history: Of vent dependent respiratory failure, end-stage renal disease, hypertension,congestive heart failure, atrial fibrillation, bipolar pacemaker, diabetes mellitus, cancer of the breast. Physical examination: Chronically ill appearing white female lying supine with head of the bed elevated 30 with a tracheostomy G-tube, and rectal tube in place. The pupils are constricted round react to light. The patient communicates with nods which at times are uncertain yielding a paucity of information. Mucous membranes of the mouth has thickened secretions. There is no jugular venous distention. The chest is clear bilaterally except for some decreased breath sounds in the right lower lobe. The heart is irregularly irregular. There is bilateral mastectomy. The abdomen is soft there is a G-tube in the left upper quadrant bowel sounds are active. Examination of the extremities reveal no edema. Diagnoses: Acute hypoxic respiratory failure Ventilator associated pneumonia right lower lobe Vent dependent respiratory failure Yeast urinary tract infection End-stage renal disease Atrial fibrillation Hypertension congestive heart failure Diabetes mellitus Status post Clostridium difficile colitis. Recommendation: Continue caspofungin for 14 days Would decrease the spectrum of the antibiotic to ceftriaxone 1 g IV. I have seen this patient for Dr.Jerrold Marielle Maya MD Social History Alcohol Use: none Smoking Status: Unknown if ever smoked Drug Use: none Exam/Review of Systems Vital Signs Vitals Vital Signs Date Time Temp Pulse Resp B/P Pulse Ox O2 Delivery O2 Flow Rate FiO2 01/09/17 20:24 98.1 83 20 114/57 98 01/09/17 19:15 50 01/07/17 20:30 Mechanical Ventilator Trach Collar Intake and Output 01/08/17 01/08/17 01/09/17 15:00 23:00 07:00 Intake Total 350 ml 650 ml 60 ml Output Total 100 ml 100 ml Balance 350 ml 550 ml -40 ml Results Result Diagram: 01/09/17 0535 01/09/17 0530 Results 24 hrs Laboratory Tests Test 01/09/17 01:30 01/09/17 05:30 01/09/17 05:35 01/09/17 06:02 Bedside Glucose 125 134 Sodium Level 142 Potassium Level 4.1 Chloride Level 102 Carbon Dioxide Level 23 Anion Gap 21 H Blood Urea Nitrogen 46 #H Creatinine 2.36 H Glucose Level 119 Calcium Level 9.3 Phosphorus Level 2.5 Magnesium Level 1.9 White Blood Count 11.6 H Red Blood Count 2.86 L Hemoglobin 8.3 L Hematocrit 26.5 L Mean Corpuscular Volume 92.7 Mean Corpuscular Hemoglobin 29.0 Mean Corpuscular Hemoglobin Concent 31.3 L Red Cell Distribution Width 19.6 H Platelet Count 269 Mean Platelet Volume 11.2 H Neutrophils % 72.5 Lymphocytes % 12.4 L Monocytes % 6.9 Eosinophils % 7.5 H Basophils % 0.2 Nucleated Red Blood Cells % 0.0 Neutrophils # 8.4 H Lymphocytes # 1.4 Monocytes # 0.8 Eosinophils # 0.9 H Basophils # 0.0 Nucleated Red Blood Cells # 0.0 Test 01/09/17 11:51 01/09/17 17:03 Bedside Glucose 86 115 Medications Medications Current Medications Acetaminophen (Tylenol Liquid) 650 mg Q4H PRN GTB PAIN OR TEMP ABOVE 38C; Start 01/07/17 at 13:00 Amiodarone HCl (Cordarone) 200 mg DAILY GTB Last administered on 01/09/17 10:56 ; Admin Dose 200 MG; Start 01/07/17 at 13:00 Diphenhydramine HCl (Benadryl) 25 mg Q6H PRN GTB ITCHING Last administered on 06:23; Admin Dose 25 MG; Start 01/07/17 at 13:00 Albuterol/ Ipratropium (Duoneb) 3 ml Q2H PRN NEB WHEEZING AND SOB; Start at 13:00 Albuterol/ Ipratropium (Duoneb) 3 ml Q6 PRN NEB WHEEZING AND SOB Last administered on 01/08/17 00:54; Admin Dose 3 ML; Start 01/07/17 at 13:00 Multivit/Ca Carb/ B Cmplx/FA/Prenat (Macrina-Brigitte) 1 tab DAILY GTB Last administered on 01/09/17 10:56; Admin Dose 1 TAB; Start 01/08/17 at 09:00 Ondansetron HCl (Zofran Tab) 4 mg Q4H PRN GTB NAUSEA AND/OR VOMITING; Start 01/07/17 at 13:00 Sodium Phosphate (Kphos Neutral) 250 mg BID GTB Last administered on 01/09/17 10:56; Admin Dose 250 MG; Start 01/07/17 at 21:00 Miscellaneous Information 1 ea NOTE XX ; Start 01/07/17 at 23:45 Glucose (Glutose) 15 gm Q15M PRN PO DECREASED GLUCOSE; Start 01/07/17 at 23:45 Glucose (Glutose) 22.5 gm Q15M PRN PO DECREASED GLUCOSE; Start 01/07/17 at 23:45 Dextrose (D50w Syringe) 25 ml Q15M PRN IV DECREASED GLUCOSE; Start 01/07/17 at 23:45 Dextrose (D50w Syringe) 50 ml Q15M PRN IV DECREASED GLUCOSE; Start 01/07/17 at 23:45 Glucagon (Glucagen) 1 mg Q15M PRN IM DECREASED GLUCOSE; Start 01/07/17 at 23:45 Glucose (Glutose) 15 gm Q15M PRN BUCCAL DECREASED GLUCOSE; Start 01/07/17 at 23: 45 Miscellaneous Information This patient lopez... PRN PRN XX WOUND CARE; Start at 07:30 Meropenem (Merrem 500 Mg/ 100 ml (Pmx)) 100 ml @ 200 mls/hr Q24H IVPB Last administered on 01/09/17 03:50; Admin Dose 200 MLS/HR; Start 01/09/17 at 03:00 Insulin Aspart NOVOLOG *MILD* ALGORI... Q6 SC ; Start 01/08/17 at 12:00 Caspofungin/ Sodium Chloride (Cancidas/NS) 250 ml @ 250 mls/hr Q24H IVPB Last administered on 01/09/17 12:22; Admin Dose 250 MLS/HR; Start 01/09/17 at 12:00 Lam MAYA MD Jan 09, 2017 21:26
[2017-01-10] VITALS (23 sets, daily range): BP systolic 124–150; BP diastolic 74–88; PULSE 80–100; RESP 18–32
[2017-01-10] MEDS: INSULIN ASPART [NOVOLOG] 3 ML PEN SC SCH ×4 (00:23→17:51)
[2017-01-10 06:56] LABS: ADD SCAN DIFF NO
[2017-01-10 07:05] LABS: BASOPHILS % 0.2 % (0.0-2.0); EOSINOPHILS # 0.7 10^3/ul (0.0-0.5); EOSINOPHILS % 7.2 % (0.0-7.0); HEMATOCRIT 27.3 % (37.0-47.0); HEMOGLOBIN 8.3 g/dl (12.0-16.0); LYMPHOCYTES # 1.5 10^3/ul (0.8-2.9); LYMPHOCYTES % 15.1 % (15.0-51.0); MEAN CORPUSCULAR HEMOGLOBIN 28.6 pg (29.0-33.0); MEAN CORPUSCULAR HGB CONC 30.4 g/dl (32.0-37.0); MEAN CORPUSCULAR VOLUME 94.1 fl (82.0-101.0); MEAN PLATELET VOLUME 11.4 fl (7.4-10.4); MONOCYTE # 0.8 10^3/ul (0.3-0.9); MONOCYTES % 7.7 % (0.0-11.0); NEUTROPHIL # 7.1 10^3/ul (1.6-7.5); NEUTROPHILS % 69.5 % (39.0-77.0); PLATELET COUNT 307 10^3/UL (140-415); RED CELL DISTRIBUTION WIDTH 20.5 % (11.5-14.5); WHITE BLOOD COUNT 10.2 10^3/ul (4.8-10.8)
[2017-01-10 07:27] LABS: CALCIUM 9.4 mg/dl (8.4-10.2); CREATININE 1.79 mg/dl (0.44-1.00); MAGNESIUM 1.9 mg/dl (1.7-2.5); PHOSPHORUS 2.3 mg/dl (2.5-4.9); POTASSIUM 3.9 mmol/L (3.5-5.1)
[2017-01-10] MEDS ORDERED: CEFTRIAXONE 1 GM INJ IM SCH (09:00)
--- NOTE | 2017-01-10 09:02 | PN ---
Date/Time of Note Date/Time of Note DATE: 01/10/17 TIME: 08:59 Assessment/Plan VTE Prophylaxis VTE Prophylaxis Intervention: other Lines/Catheters IV Catheter Type (from [facility]): Central Line Central line still needed: Yes Urinary Cath still in place: No Assessment/Plan Chief Complaint/Hosp Course 1. hypoxemic respiratory failure. etiology likely multifactorial, chf, ? pna, mucus plug -Vent settings have been reviewed. FiO2 levels improving -Follow-up with pulmonary for vent management 2. Possible sepsis. Secondary to UTI, questionable pneumonia. Urinalysis positive for pyuria. Urine culture is positive y yeast. chest x- ray suggests possible infiltrate - Continue antifungal therapy. Follow-up with infectious disease 3. Encephalopathy, acute. Etiology is likely secondary to toxic metabolic -Mental status appears to be improving continue to monitor 4. Dysphagia, status post percutaneous endoscopic gastrostomy. -resume tube feeding. 5. ESRD -HD tomorrow 7. Atrial fibrillation, currently rate controlled. Continue medical management. -Off anticoagulation secondary to previous bleed - Continue beta louise. We will follow up with cardiology. 8. Anemia. Continue to monitor hemoglobin and hematocrit levels. Continue Epogen 9. Mineral bone disease. Continue to monitor calcium and phosphorus levels. 10. History of breast cancer status post bilateral mastectomy. 11. Congestive heart failure. Continue medical management. 12. Diabetes. Continue Accu-Cheks and sliding scale. 13. History of Clostridium difficile colitis, status post treatment. 14. Gastrointestinal and deep venous thrombosis prophylaxis. Continue Protonix , Eliquis. 15. Hypokalemia replete with potassium chloride Problems: Subjective 24 Hr Interval Summary Free Text/Dictation Patient stable. had hemodialysis yesterday No other events noted overnight Exam/Review of Systems Vital Signs Vitals Vital Signs Date Time Temp Pulse Resp B/P Pulse Ox O2 Delivery O2 Flow Rate FiO2 01/10/17 08:26 98.0 103 20 125/77 98 01/10/17 07:40 50 01/07/17 20:30 Mechanical Ventilator Trach Collar Intake and Output 01/09/17 01/09/17 01/10/17 15:00 23:00 07:00 Intake Total 400 ml 250 ml 660 ml Output Total 2800 ml Balance -2400 ml 250 ml 660 ml Exam Alert but confused at times, no apparent distress, following commands Head: normocephalic Neck: supple Respiratory: other (Coarse breath sounds bilaterally, no wheezing) Cardiovascular: other (S1-S2 heard), regular rate and rhythm, systolic murmur Gastrointestinal: bowel sounds, non-tender, soft Extremities: trace edema, other Dermatologically no rashes neurologically no obvious focal deficits Musculoskeletal no joint effusions Results Result Diagram: 01/10/17 0600 01/10/17 0600 Results 24 hrs Laboratory Tests Test 01/09/17 11:51 01/09/17 17:03 01/10/17 00:11 01/10/17 05:19 Bedside Glucose 86 115 113 115 Test 01/10/17 06:00 White Blood Count 10.2 Red Blood Count 2.90 L Hemoglobin 8.3 L Hematocrit 27.3 L Mean Corpuscular Volume 94.1 Mean Corpuscular Hemoglobin 28.6 L Mean Corpuscular Hemoglobin Concent 30.4 L Red Cell Distribution Width 20.5 H Platelet Count 307 Mean Platelet Volume 11.4 H Neutrophils % 69.5 Lymphocytes % 15.1 Monocytes % 7.7 Eosinophils % 7.2 H Basophils % 0.2 Nucleated Red Blood Cells % 0.0 Neutrophils # 7.1 Lymphocytes # 1.5 Monocytes # 0.8 Eosinophils # 0.7 H Basophils # 0.0 Nucleated Red Blood Cells # 0.0 Sodium Level 144 Potassium Level 3.9 Chloride Level 100 Carbon Dioxide Level 28 Anion Gap 20 H Blood Urea Nitrogen 34 #H Creatinine 1.79 H Glucose Level 113 Calcium Level 9.4 Phosphorus Level 2.3 L Magnesium Level 1.9 Medications Medications Current Medications Acetaminophen (Tylenol Liquid) 650 mg Q4H PRN GTB PAIN OR TEMP ABOVE 38C; Start 01/07/17 at 13:00 Amiodarone HCl (Cordarone) 200 mg DAILY GTB Last administered on 01/09/17 10:56 ; Admin Dose 200 MG; Start 01/07/17 at 13:00 Diphenhydramine HCl (Benadryl) 25 mg Q6H PRN GTB ITCHING Last administered on 06:23; Admin Dose 25 MG; Start 01/07/17 at 13:00 Albuterol/ Ipratropium (Duoneb) 3 ml Q2H PRN NEB WHEEZING AND SOB; Start at 13:00 Albuterol/ Ipratropium (Duoneb) 3 ml Q6 PRN NEB WHEEZING AND SOB Last administered on 01/08/17 00:54; Admin Dose 3 ML; Start 01/07/17 at 13:00 Multivit/Ca Carb/ B Cmplx/FA/Prenat (Macrina-Brigitte) 1 tab DAILY GTB Last administered on 01/09/17 10:56; Admin Dose 1 TAB; Start 01/08/17 at 09:00 Ondansetron HCl (Zofran Tab) 4 mg Q4H PRN GTB NAUSEA AND/OR VOMITING; Start 01/07/17 at 13:00 Sodium Phosphate (Kphos Neutral) 250 mg BID GTB Last administered on 01/09/17 21:27; Admin Dose 250 MG; Start 01/07/17 at 21:00 Miscellaneous Information 1 ea NOTE XX ; Start 01/07/17 at 23:45 Glucose (Glutose) 15 gm Q15M PRN PO DECREASED GLUCOSE; Start 01/07/17 at 23:45 Glucose (Glutose) 22.5 gm Q15M PRN PO DECREASED GLUCOSE; Start 01/07/17 at 23:45 Dextrose (D50w Syringe) 25 ml Q15M PRN IV DECREASED GLUCOSE; Start 01/07/17 at 23:45 Dextrose (D50w Syringe) 50 ml Q15M PRN IV DECREASED GLUCOSE; Start 01/07/17 at 23:45 Glucagon (Glucagen) 1 mg Q15M PRN IM DECREASED GLUCOSE; Start 01/07/17 at 23:45 Glucose (Glutose) 15 gm Q15M PRN BUCCAL DECREASED GLUCOSE; Start 01/07/17 at 23: 45 Miscellaneous Information (Pending [facility] Order For Wound Care) This patient lopez... PRN PRN XX WOUND CARE; Start 01/08/17 at 07:30 Insulin Aspart NOVOLOG *MILD* ALGORI... Q6 SC ; Start 01/08/17 at 12:00 Caspofungin/ Sodium Chloride (Cancidas/NS) 250 ml @ 250 mls/hr Q24H IVPB Last administered on 01/09/17 12:22; Admin Dose 250 MLS/HR; Start 01/09/17 at 12:00 Ceftriaxone Sodium (Rocephin) 1 gm DAILY IM ; Start 01/10/17 at 09:00; Stop at 12:00 CHARLIE BUSBY DO Jan 10, 2017 09:02
[2017-01-10] MEDS: MULTIVIT/CA CARB/B CMPLX/FA TAB GTB SCH (09:09)
[2017-01-10] MEDS: SOD PHOS MONO/DIBAS 250 MG TAB GTB SCH ×2 (09:09→21:08)
[2017-01-10] MEDS: LANSOPRAZOLE 30 MG CAP GTB SCH (09:09)
[2017-01-10] MEDS: AMIODARONE 200 MG TAB GTB SCH (09:10)
--- NOTE | 2017-01-10 12:54 | CONS ---
Date/Time of Note Date/Time of Note DATE: 01/10/17 TIME: 12:52 Consult Date/Type/Reason Admit Date/Time Jan 07, 2017 at 12:43 Initial Consult Date 01/08/17 Type of Consultation: Pulmonary ICU Ordering Provider: YAYO EDGAR DO Subjective Patient anxious with intermittent hypoxemia requiring increased FiO2 to 60%. Objective Vital Signs Date Time Temp Pulse Resp B/P Pulse Ox O2 Delivery O2 Flow Rate FiO2 01/10/17 11:34 97.5 100 24 150/88 96 01/10/17 11:12 50 01/07/17 20:30 Mechanical Ventilator Trach Collar Intake and Output 01/09/17 01/09/17 01/10/17 14:59 22:59 06:59 Intake Total 400 ml 250 ml 660 ml Output Total 2800 ml Balance -2400 ml 250 ml 660 ml Exam PHYSICAL EXAMINATION GENERAL: Elderly lady on mechanical ventilation via tracheostomy VITAL SIGNS: see below. HEENT: Pupils equal, round, and reactive to light. Tracheostomy site clean and intact. CARDIAC: S1, S2, 1/6 systolic ejection murmur CHEST: Diminished air entry bilaterally. ABDOMEN: Mildly distended. Bowel sounds present no guarding or rebound EXTREMITIES: No cyanosis, clubbing edema +1 NEUROLOGIC: Generalized weakness Results/Medications Result Diagram: 01/10/17 0600 01/10/17 0600 Results 24 hrs Laboratory Tests Test 01/09/17 17:03 01/10/17 00:11 01/10/17 05:19 01/10/17 06:00 Bedside Glucose 115 113 115 White Blood Count 10.2 Red Blood Count 2.90 L Hemoglobin 8.3 L Hematocrit 27.3 L Mean Corpuscular Volume 94.1 Mean Corpuscular Hemoglobin 28.6 L Mean Corpuscular Hemoglobin Concent 30.4 L Red Cell Distribution Width 20.5 H Platelet Count 307 Mean Platelet Volume 11.4 H Neutrophils % 69.5 Lymphocytes % 15.1 Monocytes % 7.7 Eosinophils % 7.2 H Basophils % 0.2 Nucleated Red Blood Cells % 0.0 Neutrophils # 7.1 Lymphocytes # 1.5 Monocytes # 0.8 Eosinophils # 0.7 H Basophils # 0.0 Nucleated Red Blood Cells # 0.0 Sodium Level 144 Potassium Level 3.9 Chloride Level 100 Carbon Dioxide Level 28 Anion Gap 20 H Blood Urea Nitrogen 34 #H Creatinine 1.79 H Glucose Level 113 Calcium Level 9.4 Phosphorus Level 2.3 L Magnesium Level 1.9 Test 01/10/17 12:08 Bedside Glucose 85 Medications Current Medications Acetaminophen (Tylenol Liquid) 650 mg Q4H PRN GTB PAIN OR TEMP ABOVE 38C; Start 01/07/17 at 13:00 Amiodarone HCl (Cordarone) 200 mg DAILY GTB Last administered on 01/10/17 09:10 ; Admin Dose 200 MG; Start 01/07/17 at 13:00 Diphenhydramine HCl (Benadryl) 25 mg Q6H PRN GTB ITCHING Last administered on 06:23; Admin Dose 25 MG; Start 01/07/17 at 13:00 Albuterol/ Ipratropium (Duoneb) 3 ml Q2H PRN NEB WHEEZING AND SOB; Start at 13:00 Multivit/Ca Carb/ B Cmplx/FA/Prenat (Macrina-Brigitte) 1 tab DAILY GTB Last administered on 01/10/17 09:09; Admin Dose 1 TAB; Start 01/08/17 at 09:00 Ondansetron HCl (Zofran Tab) 4 mg Q4H PRN GTB NAUSEA AND/OR VOMITING; Start 01/07/17 at 13:00 Sodium Phosphate (Kphos Neutral) 250 mg BID GTB Last administered on 01/10/17 09:09; Admin Dose 250 MG; Start 01/07/17 at 21:00 Miscellaneous Information 1 ea NOTE XX ; Start 01/07/17 at 23:45 Glucose (Glutose) 15 gm Q15M PRN PO DECREASED GLUCOSE; Start 01/07/17 at 23:45 Glucose (Glutose) 22.5 gm Q15M PRN PO DECREASED GLUCOSE; Start 01/07/17 at 23:45 Dextrose (D50w Syringe) 25 ml Q15M PRN IV DECREASED GLUCOSE; Start 01/07/17 at 23:45 Dextrose (D50w Syringe) 50 ml Q15M PRN IV DECREASED GLUCOSE; Start 01/07/17 at 23:45 Glucagon (Glucagen) 1 mg Q15M PRN IM DECREASED GLUCOSE; Start 01/07/17 at 23:45 Glucose (Glutose) 15 gm Q15M PRN BUCCAL DECREASED GLUCOSE; Start 01/07/17 at 23: 45 Miscellaneous Information (Pending Santyl Order For Wound Care) This patient lopez... PRN PRN XX WOUND CARE; Start 01/08/17 at 07:30 Insulin Aspart NOVOLOG *MILD* ALGORI... Q6 SC ; Start 01/08/17 at 12:00 Caspofungin/ Sodium Chloride (Cancidas/NS) 250 ml @ 250 mls/hr Q24H IVPB Last administered on 01/09/17 12:22; Admin Dose 250 MLS/HR; Start 01/09/17 at 12:00 Ceftriaxone Sodium (Rocephin) 1 gm DAILY IM Last administered on 01/10/17 09:09 ; Admin Dose 1 GM; Start 01/10/17 at 09:00; Stop 01/15/17 at 12:00 Heparin Sodium (Porcine) (Heparin (5000 Units/0.5 ml)) 5,000 unit BID SC ; Start 01/10/17 at 21:00 Assessment/Plan Chief Complaint/Hosp Course IMP: 1. Acute on chronic Hypoxemic Resp Failure: suspect due to mucus plugging. Doubt PE 2. UTI 3. VDRF 4. ESRD on HD RECS: 1. Vent--> titrate FiO2 and lower PEEP to 5 2. Repeat ABG on these settings 3. BD's/CPT 4. Continue Meropenem and de-escalate pending cx's 5. Add Mucomyst repeat chest x-ray Problems: RHONDA BUENROSTRO MD, [facility] Jan 10, 2017 12:54
[2017-01-10] MEDS: ALBUTEROL/IPRATROPIUM (NEB) 3 ML AMP HHN SCH ×2 (13:00→19:16)
[2017-01-10] MEDS: CASPOFUNGIN 50 MG in SOD CHLORIDE 0.9% 250 ML IVPB SCH (14:05)
--- NOTE | 2017-01-10 14:22 | CONS ---
Date/Time of Note Date/Time of Note DATE: 01/10/17 TIME: 14:21 Assessment/Plan Assessment/Plan Chief Complaint/Hosp Course Subjective: No acute changes, patient is awake, looks comfortable, no fevers Indwelling: Tracheostomy, PEG, permacath Antibiotics: Cancidas, Rocephin Microbiology: Urine culture growing Dilcia glabrata, wound culture growing enterococcus species Physical examination: Chronically ill-appearing elderly woman who is awake in no distress. Head atraumatic normocephalic, sclera nonicteric, neck is supple, tracheostomy present. Chest rise symmetrical, breath sounds diminished basis. Heart S1-S2. Abdomen soft, bowel tones present. Extremities no cyanosis Assessment: 1. Acute on chronic Hypoxemic Resp Failure: suspect due to mucus plugging 2. UTI 3. VDRF 4. ESRD on HD 5. Sacral decubitus 6. Allergy: Vancomycin Plan: Clinically stable, DC Rocephin, start Zyvox, continue present care, follow final cultures, continue vent management as per pulmonary Discussed with staff Problems: Consultation Date/Type/Reason Admit Date/Time Jan 07, 2017 at 12:43 Initial Consult Date 01/08/17 Type of Consultation: Factious disease Referring Provider: YAYO EDGAR DO Exam/Review of Systems Vital Signs Vitals Vital Signs Date Time Temp Pulse Resp B/P Pulse Ox O2 Delivery O2 Flow Rate FiO2 01/10/17 13:04 86 26 95 50 01/10/17 11:34 97.5 150/88 01/07/17 20:30 Mechanical Ventilator Trach Collar Intake and Output 01/09/17 01/09/17 01/10/17 15:00 23:00 07:00 Intake Total 400 ml 250 ml 660 ml Output Total 2800 ml Balance -2400 ml 250 ml 660 ml Results Result Diagram: 01/10/17 0600 01/10/17 0600 Results 24 hrs Laboratory Tests Test 01/09/17 17:03 01/10/17 00:11 01/10/17 05:19 01/10/17 06:00 Bedside Glucose 115 113 115 White Blood Count 10.2 Red Blood Count 2.90 L Hemoglobin 8.3 L Hematocrit 27.3 L Mean Corpuscular Volume 94.1 Mean Corpuscular Hemoglobin 28.6 L Mean Corpuscular Hemoglobin Concent 30.4 L Red Cell Distribution Width 20.5 H Platelet Count 307 Mean Platelet Volume 11.4 H Neutrophils % 69.5 Lymphocytes % 15.1 Monocytes % 7.7 Eosinophils % 7.2 H Basophils % 0.2 Nucleated Red Blood Cells % 0.0 Neutrophils # 7.1 Lymphocytes # 1.5 Monocytes # 0.8 Eosinophils # 0.7 H Basophils # 0.0 Nucleated Red Blood Cells # 0.0 Sodium Level 144 Potassium Level 3.9 Chloride Level 100 Carbon Dioxide Level 28 Anion Gap 20 H Blood Urea Nitrogen 34 #H Creatinine 1.79 H Glucose Level 113 Calcium Level 9.4 Phosphorus Level 2.3 L Magnesium Level 1.9 Test 01/10/17 12:08 Bedside Glucose 85 Medications Medications Current Medications Acetaminophen (Tylenol Liquid) 650 mg Q4H PRN GTB PAIN OR TEMP ABOVE 38C; Start 01/07/17 at 13:00 Amiodarone HCl (Cordarone) 200 mg DAILY GTB Last administered on 01/10/17 09:10 ; Admin Dose 200 MG; Start 01/07/17 at 13:00 Diphenhydramine HCl (Benadryl) 25 mg Q6H PRN GTB ITCHING Last administered on 06:23; Admin Dose 25 MG; Start 01/07/17 at 13:00 Albuterol/ Ipratropium (Duoneb) 3 ml Q2H PRN NEB WHEEZING AND SOB; Start at 13:00 Multivit/Ca Carb/ B Cmplx/FA/Prenat (Macrina-Brigitte) 1 tab DAILY GTB Last administered on 01/10/17 09:09; Admin Dose 1 TAB; Start 01/08/17 at 09:00 Ondansetron HCl (Zofran Tab) 4 mg Q4H PRN GTB NAUSEA AND/OR VOMITING; Start 01/07/17 at 13:00 Sodium Phosphate (Kphos Neutral) 250 mg BID GTB Last administered on 01/10/17 09:09; Admin Dose 250 MG; Start 01/07/17 at 21:00 Miscellaneous Information 1 ea NOTE XX ; Start 01/07/17 at 23:45 Glucose (Glutose) 15 gm Q15M PRN PO DECREASED GLUCOSE; Start 01/07/17 at 23:45 Glucose (Glutose) 22.5 gm Q15M PRN PO DECREASED GLUCOSE; Start 01/07/17 at 23:45 Dextrose (D50w Syringe) 25 ml Q15M PRN IV DECREASED GLUCOSE; Start 01/07/17 at 23:45 Dextrose (D50w Syringe) 50 ml Q15M PRN IV DECREASED GLUCOSE; Start 01/07/17 at 23:45 Glucagon (Glucagen) 1 mg Q15M PRN IM DECREASED GLUCOSE; Start 01/07/17 at 23:45 Glucose (Glutose) 15 gm Q15M PRN BUCCAL DECREASED GLUCOSE; Start 01/07/17 at 23: 45 Miscellaneous Information (Pending [facility]) This patient lopez... PRN PRN XX WOUND CARE; Start 01/08/17 at 07:30 Insulin Aspart NOVOLOG *MILD* ALGORI... Q6 SC ; Start 01/08/17 at 12:00 Caspofungin/ Sodium Chloride (Cancidas/NS) 250 ml @ 250 mls/hr Q24H IVPB Last administered on 01/10/17 14:05; Admin Dose 250 MLS/HR; Start 01/09/17 at 12:00 Ceftriaxone Sodium (Rocephin) 1 gm DAILY IM Last administered on 01/10/17 09:09 ; Admin Dose 1 GM; Start 01/10/17 at 09:00; Stop 01/15/17 at 12:00 Heparin Sodium (Porcine) (Heparin (5000 Units/0.5 ml)) 5,000 unit BID SC ; Start 01/10/17 at 21:00 Lorazepam (Ativan) 1 mg Q6H PRN PO Agitation; Start 01/10/17 at 13:30 AI FUNEZ NP Jan 10, 2017 14:22
[2017-01-10] MEDS: ACETYLCYSTEINE 20% 4 ML VIAL NEB SCH ×2 (14:30→19:16)
--- NOTE | 2017-01-10 14:56 | PN ---
Date/Time of Note Date/Time of Note DATE: 01/10/17 TIME: 14:53 Assessment/Plan VTE Prophylaxis VTE Prophylaxis Intervention: heparin Lines/Catheters IV Catheter Type (from Nrs): Permacath Urinary Cath still in place: No Assessment/Plan Chief Complaint/Hosp Course 1. acute on chronic hypoxemic hypercapnic respiratory failure: s/p trach: vent dep. 2. Pafib; currently remains in NSR 3. HX Sick sinus syndrome: s/p PPM: pacemaker was interrogated and personally reviewed on 01/08/17 with normal functioning pacemaker. 4. pneumonia 5. ESRD on HD 6. HX HTN: stable now 7. severe anemia cont vent support not anticoagulated due to concerns about bleeding and severe anemia. abx as per IM/ ID and pulm team will cont to monitor on tele Problems: Subjective 24 Hr Interval Summary Free Text/Dictation d/w staff and rhythm was reviewed. pt remains in NSR. no afib d/ w daughter. pt with no chest pain. c/o abd pain. mild pt is still on vent. OBJECTIVE. General: s/p trach on vent. HEENT: NC/AT. pupils are equal. round. NECK: s/p trach. no stridor. CV: RRR. systolic murmur; no gallop or rubs. PULM: no wheezing but + rhonchi anteriorly GI: SOFT, NT, ND, no rebound or guarding . s/p PEG Extremity: trace B/L LE edema. no clubbing. neuro: awake and alert responds appropriately Psych: calm and pleasant rectal: deferred Exam/Review of Systems Vital Signs Vitals Vital Signs Date Time Temp Pulse Resp B/P Pulse Ox O2 Delivery O2 Flow Rate FiO2 01/10/17 13:04 86 26 95 50 01/10/17 11:34 97.5 150/88 01/07/17 20:30 Mechanical Ventilator Trach Collar Intake and Output 01/09/17 01/09/17 01/10/17 15:00 23:00 07:00 Intake Total 400 ml 250 ml 660 ml Output Total 2800 ml Balance -2400 ml 250 ml 660 ml Results Result Diagram: 01/10/17 0600 01/10/17 0600 Results 24 hrs Laboratory Tests Test 01/09/17 17:03 01/10/17 00:11 01/10/17 05:19 01/10/17 06:00 Bedside Glucose 115 113 115 White Blood Count 10.2 Red Blood Count 2.90 L Hemoglobin 8.3 L Hematocrit 27.3 L Mean Corpuscular Volume 94.1 Mean Corpuscular Hemoglobin 28.6 L Mean Corpuscular Hemoglobin Concent 30.4 L Red Cell Distribution Width 20.5 H Platelet Count 307 Mean Platelet Volume 11.4 H Neutrophils % 69.5 Lymphocytes % 15.1 Monocytes % 7.7 Eosinophils % 7.2 H Basophils % 0.2 Nucleated Red Blood Cells % 0.0 Neutrophils # 7.1 Lymphocytes # 1.5 Monocytes # 0.8 Eosinophils # 0.7 H Basophils # 0.0 Nucleated Red Blood Cells # 0.0 Sodium Level 144 Potassium Level 3.9 Chloride Level 100 Carbon Dioxide Level 28 Anion Gap 20 H Blood Urea Nitrogen 34 #H Creatinine 1.79 H Glucose Level 113 Calcium Level 9.4 Phosphorus Level 2.3 L Magnesium Level 1.9 Test 01/10/17 12:08 Bedside Glucose 85 Medications Medications Current Medications Acetaminophen (Tylenol Liquid) 650 mg Q4H PRN GTB PAIN OR TEMP ABOVE 38C; Start 01/07/17 at 13:00 Amiodarone HCl (Cordarone) 200 mg DAILY GTB Last administered on 01/10/17 09:10 ; Admin Dose 200 MG; Start 01/07/17 at 13:00 Diphenhydramine HCl (Benadryl) 25 mg Q6H PRN GTB ITCHING Last administered on 06:23; Admin Dose 25 MG; Start 01/07/17 at 13:00 Albuterol/ Ipratropium (Duoneb) 3 ml Q2H PRN NEB WHEEZING AND SOB; Start at 13:00 Multivit/Ca Carb/ B Cmplx/FA/Prenat (Macrina-Brigitte) 1 tab DAILY GTB Last administered on 01/10/17 09:09; Admin Dose 1 TAB; Start 01/08/17 at 09:00 Ondansetron HCl (Zofran Tab) 4 mg Q4H PRN GTB NAUSEA AND/OR VOMITING; Start 01/07/17 at 13:00 Sodium Phosphate (Kphos Neutral) 250 mg BID GTB Last administered on 01/10/17 09:09; Admin Dose 250 MG; Start 01/07/17 at 21:00 Miscellaneous Information 1 ea NOTE XX ; Start 01/07/17 at 23:45 Glucose (Glutose) 15 gm Q15M PRN PO DECREASED GLUCOSE; Start 01/07/17 at 23:45 Glucose (Glutose) 22.5 gm Q15M PRN PO DECREASED GLUCOSE; Start 01/07/17 at 23:45 Dextrose (D50w Syringe) 25 ml Q15M PRN IV DECREASED GLUCOSE; Start 01/07/17 at 23:45 Dextrose (D50w Syringe) 50 ml Q15M PRN IV DECREASED GLUCOSE; Start 01/07/17 at 23:45 Glucagon (Glucagen) 1 mg Q15M PRN IM DECREASED GLUCOSE; Start 01/07/17 at 23:45 Glucose (Glutose) 15 gm Q15M PRN BUCCAL DECREASED GLUCOSE; Start 01/07/17 at 23: 45 Miscellaneous Information (Pending [facility] Order For Wound Care) This patient lopez... PRN PRN XX WOUND CARE; Start 01/08/17 at 07:30 Insulin Aspart NOVOLOG *MILD* ALGORI... Q6 SC ; Start 01/08/17 at 12:00 Caspofungin/ Sodium Chloride (Cancidas/NS) 250 ml @ 250 mls/hr Q24H IVPB Last administered on 01/10/17t 14:05; Admin Dose 250 MLS/HR; Start 01/09/17 at 12:00 Heparin Sodium (Porcine) (Heparin (5000 Units/0.5 ml)) 5,000 unit BID SC ; Start 01/10/17 at 21:00 Lorazepam (Ativan) 1 mg Q6H PRN PO Agitation; Start 01/10/17 at 13:30 Linezolid (Zyvox) 600 mg BID PO ; Start 01/10/17 at 15:00 KIAH GARCIA MD Jan 10, 2017 14:56
[2017-01-10] MEDS: ZYVOX 600 MG TAB PO SCH ×2 (15:12→23:03)
[2017-01-10] MEDS: LORAZEPAM 0.5 MG TAB PO PRN (21:08)
[2017-01-10] MEDS: HEPARIN 5,000 UNIT/0.5 ML VIAL SC SCH (21:10)
[2017-01-11] VITALS (77 sets, daily range): BP systolic 10–141; BP diastolic 52–104; PULSE 75–133; RESP 12–35
[2017-01-11] MEDS: ACETYLCYSTEINE 20% 4 ML VIAL NEB SCH ×4 (01:26→19:48)
[2017-01-11] MEDS: ALBUTEROL/IPRATROPIUM (NEB) 3 ML AMP HHN SCH ×2 (01:26→07:09)
[2017-01-11] MEDS: INSULIN ASPART [NOVOLOG] 3 ML PEN SC SCH ×4 (06:00→18:00)
[2017-01-11 06:07] LABS: ADD SCAN DIFF NO
[2017-01-11 06:15] LABS: BASOPHILS % 0.2 % (0.0-2.0); EOSINOPHILS # 0.5 10^3/ul (0.0-0.5); EOSINOPHILS % 5.1 % (0.0-7.0); HEMATOCRIT 28.8 % (37.0-47.0); HEMOGLOBIN 8.7 g/dl (12.0-16.0); LYMPHOCYTES # 1.5 10^3/ul (0.8-2.9); LYMPHOCYTES % 15.9 % (15.0-51.0); MEAN CORPUSCULAR HEMOGLOBIN 28.3 pg (29.0-33.0); MEAN CORPUSCULAR HGB CONC 30.2 g/dl (32.0-37.0); MEAN CORPUSCULAR VOLUME 93.8 fl (82.0-101.0); MEAN PLATELET VOLUME 11.2 fl (7.4-10.4); MONOCYTE # 0.7 10^3/ul (0.3-0.9); MONOCYTES % 7.6 % (0.0-11.0); NEUTROPHIL # 6.6 10^3/ul (1.6-7.5); NEUTROPHILS % 70.9 % (39.0-77.0); PLATELET COUNT 338 10^3/UL (140-415); RED BLOOD COUNT 3.07 10^6/ul (4.20-5.40); RED CELL DISTRIBUTION WIDTH 20.3 % (11.5-14.5); WHITE BLOOD COUNT 9.4 10^3/ul (4.8-10.8)
[2017-01-11 06:51] LABS: CALCIUM 9.6 mg/dl (8.4-10.2); CREATININE 2.23 mg/dl (0.44-1.00); MAGNESIUM 1.9 mg/dl (1.7-2.5); PHOSPHORUS 4.1 mg/dl (2.5-4.9); POTASSIUM 4.1 mmol/L (3.5-5.1)
--- NOTE | 2017-01-11 08:20 | PN ---
Date/Time of Note Date/Time of Note DATE: 01/11/17 TIME: 08:16 Assessment/Plan VTE Prophylaxis VTE Prophylaxis Intervention: other Lines/Catheters IV C[facility]ter Type (from [facility] permacath Urinary Cath still in place: No Assessment/Plan Chief Complaint/Hosp Course 1. hypoxemic respiratory failure. etiology likely multifactorial, chf, ? pna, mucus plug -FiO2 levels at 100%. -We will check stat ABG, chest x-ray. -Vent settings have been reviewed. -Follow-up with pulmonary for vent management 2. Possible sepsis. Secondary to UTI, questionable pneumonia. Urinalysis positive for pyuria. Urine culture is positive y yeast. chest x- ray suggests possible infiltrate - Continue antifungal therapy. Follow-up with infectious disease 3. Encephalopathy, acute. Etiology is likely secondary to toxic metabolic -Mental status appears to be improving continue to monitor 4. Dysphagia, status post percutaneous endoscopic gastrostomy. -resume tube feeding. 5. ESRD -HD today 7. Atrial fibrillation, currently rate controlled. Continue medical management. -Off anticoagulation secondary to previous bleed - Continue beta louise. We will follow up with cardiology. 8. Anemia. Continue to monitor hemoglobin and hematocrit levels. Continue Epogen 9. Mineral bone disease. Continue to monitor calcium and phosphorus levels. 10. History of breast cancer status post bilateral mastectomy. 11. Congestive heart failure. Continue medical management. 12. Diabetes. Continue Accu-Cheks and sliding scale. 13. History of Clostridium difficile colitis, status post treatment. 14. Gastrointestinal and deep venous thrombosis prophylaxis. Continue Protonix , Eliquis. 15. Hypokalemia replete with potassium chloride Problems: Subjective 24 Hr Interval Summary Free Text/Dictation Patient overnight was desaturating. He was placed on FiO2 100%. Despite aggressive suctioning and breathing treatments. Saturations remained low. Blood pressures have been low but stable. Patient appears anxious. Pending hemodialysis Exam/Review of Systems Vital Signs Vitals Vital Signs Date Time Temp Pulse Resp B/P Pulse Ox O2 Delivery O2 Flow Rate FiO2 01/11/17 08:07 95 01/11/17 07:59 99.1 18 122/77 90 01/11/17 07:48 100 01/07/17 20:30 Mechanical Ventilator Trach Collar Intake and Output 01/10/17 01/10/17 01/11/17 15:00 23:00 07:00 Intake Total 830 ml 660 ml Balance 830 ml 660 ml Exam HEENT: Head is normocephalic. Pupils are reactive to light. NECK: Supple. HEART: Tachycardic LUNGS: Show diminished breath sounds at base. ABDOMEN: Soft, nontender to palpation. No rebound or guarding. EXTREMITIES: Negative for clubbing, cyanosis, no edema. DERMATOLOGIC: No rashes. MUSCULOSKELETAL: No joint effusions. NEUROLOGIC: No change in exam. Results Result Diagram: 01/11/17 0540 01/11/17 0540 Results 24 hrs Laboratory Tests Test 01/10/17 12:08 01/10/17 17:36 01/10/17 23:09 01/11/17 05:40 Bedside Glucose 85 99 119 White Blood Count 9.4 Red Blood Count 3.07 L Hemoglobin 8.7 L Hematocrit 28.8 L Mean Corpuscular Volume 93.8 Mean Corpuscular Hemoglobin 28.3 L Mean Corpuscular Hemoglobin Concent 30.2 L Red Cell Distribution Width 20.3 H Platelet Count 338 Mean Platelet Volume 11.2 H Neutrophils % 70.9 Lymphocytes % 15.9 Monocytes % 7.6 Eosinophils % 5.1 Basophils % 0.2 Nucleated Red Blood Cells % 0.0 Neutrophils # 6.6 Lymphocytes # 1.5 Monocytes # 0.7 Eosinophils # 0.5 Basophils # 0.0 Nucleated Red Blood Cells # 0.0 Sodium Level 145 H Potassium Level 4.1 Chloride Level 100 Carbon Dioxide Level 27 Anion Gap 22 H Blood Urea Nitrogen 47 #H Creatinine 2.23 H Glucose Level 110 Calcium Level 9.6 Phosphorus Level 4.1 Magnesium Level 1.9 Test 01/11/17 05:47 Bedside Glucose 121 Medications Medications Current Medications Acetaminophen (Tylenol Liquid) 650 mg Q4H PRN GTB PAIN OR TEMP ABOVE 38C; Start 01/07/17 at 13:00 Amiodarone HCl (Cordarone) 200 mg DAILY GTB Last administered on 01/10/17 09:10 ; Admin Dose 200 MG; Start 01/07/17 at 13:00 Diphenhydramine HCl (Benadryl) 25 mg Q6H PRN GTB ITCHING Last administered on 06:23; Admin Dose 25 MG; Start 01/07/17 at 13:00 Albuterol/ Ipratropium (Duoneb) 3 ml Q2H PRN NEB WHEEZING AND SOB; Start at 13:00 Multivit/Ca Carb/ B Cmplx/FA/Prenat (Macrina-Brigitte) 1 tab DAILY GTB Last administered on 01/10/17 09:09; Admin Dose 1 TAB; Start 01/08/17 at 09:00 Ondansetron HCl (Zofran Tab) 4 mg Q4H PRN GTB NAUSEA AND/OR VOMITING; Start 01/07/17 at 13:00 Sodium Phosphate (Kphos Neutral) 250 mg BID GTB Last administered on 01/10/17 21:08; Admin Dose 250 MG; Start 01/07/17 at 21:00 Miscellaneous Information 1 ea NOTE XX ; Start 01/07/17 at 23:45 Glucose (Glutose) 15 gm Q15M PRN PO DECREASED GLUCOSE; Start 01/07/17 at 23:45 Glucose (Glutose) 22.5 gm Q15M PRN PO DECREASED GLUCOSE; Start 01/07/17 at 23:45 Dextrose (D50w Syringe) 25 ml Q15M PRN IV DECREASED GLUCOSE; Start 01/07/17 at 23:45 Dextrose (D50w Syringe) 50 ml Q15M PRN IV DECREASED GLUCOSE; Start 01/07/17 at 23:45 Glucagon (Glucagen) 1 mg Q15M PRN IM DECREASED GLUCOSE; Start 01/07/17 at 23:45 Glucose (Glutose) 15 gm Q15M PRN BUCCAL DECREASED GLUCOSE; Start 01/07/17 at 23: 45 Miscellaneous Information (Pending [facility] Order For Wound Care) This patient lopez... PRN PRN XX WOUND CARE; Start 01/08/17 at 07:30 Insulin Aspart NOVOLOG *MILD* ALGORI... Q6 SC ; Start 01/08/17 at 12:00 Caspofungin/ Sodium Chloride (Cancidas/NS) 250 ml @ 250 mls/hr Q24H IVPB Last administered on 01/10/17 14:05; Admin Dose 250 MLS/HR; Start 01/09/17 at 12:00 Heparin Sodium (Porcine) (Heparin (5000 Units/0.5 ml)) 5,000 unit BID SC Last administered on 01/10/17 21:10; Admin Dose 5,000 UNIT; Start 01/10/17 at 21:00 Lorazepam (Ativan) 1 mg Q6H PRN PO Agitation Last administered on 01/10/17 21: 08; Admin Dose 1 MG; Start 01/10/17 at 13:30 Linezolid (Zyvox) 600 mg BID PO Last administered on 01/10/17 23:03; Admin Dose 600 MG; Start 01/10/17 at 15:00 CHARLIE BUSBY DO Jan 11, 2017 08:20
--- NOTE | 2017-01-11 08:23 | PN ---
Date/Time of Note Date/Time of Note DATE: 01/11/17 TIME: 08:22 Assessment/Plan VTE Prophylaxis VTE Prophylaxis Intervention: other Lines/Catheters IV Catheter Type (from Nrsg): permacath Urinary Cath still in place: No Assessment/Plan Chief Complaint/Hosp Course 1. acute on chronic hypoxemic hypercapnic respiratory failure: s/p trach: vent dep. 2. Pafib; currently remains in NSR 3. HX Sick sinus syndrome: s/p PPM: pacemaker was interrogated and personally reviewed on 01/08/17 with normal functioning pacemaker. 4. pneumonia 5. ESRD on HD 6. HX HTN: stable now 7. severe anemia 8. severe hypoxemia cont vent support not anticoagulated due to concerns about bleeding and severe anemia. abx as per IM/ ID and pulm team will cont to monitor on tele check cxr and ABG now Problems: Subjective 24 Hr Interval Summary Free Text/Dictation d/w staff and rhythm was reviewed. pt remains in NSR. no afib d/ w Dr Ndiaye pt with no chest pain. pt is still on vent but has become more hypoxemic and on 100% O2 now OBJECTIVE. General: s/p trach on vent. HEENT: NC/AT. pupils are equal. round. NECK: s/p trach. no stridor. CV: RRR. systolic murmur; no gallop or rubs. PULM: no wheezing but + rhonchi anteriorly GI: SOFT, NT, ND, no rebound or guarding . s/p PEG Extremity: trace B/L LE edema. no clubbing. neuro: awake and alert responds appropriately Psych: calm and pleasant rectal: deferred Exam/Review of Systems Vital Signs Vitals Vital Signs Date Time Temp Pulse Resp B/P Pulse Ox O2 Delivery O2 Flow Rate FiO2 01/11/17 08:07 95 01/11/17 07:59 99.1 18 122/77 90 01/11/17 07:48 100 01/07/17 20:30 Mechanical Ventilator Trach Collar Intake and Output 01/10/17 01/10/17 01/11/17 15:00 23:00 07:00 Intake Total 830 ml 660 ml Balance 830 ml 660 ml Results Result Diagram: 01/11/17 0540 01/11/17 0540 Results 24 hrs Laboratory Tests Test 01/10/17 12:08 01/10/17 17:36 01/10/17 23:09 01/11/17 05:40 Bedside Glucose 85 99 119 White Blood Count 9.4 Red Blood Count 3.07 L Hemoglobin 8.7 L Hematocrit 28.8 L Mean Corpuscular Volume 93.8 Mean Corpuscular Hemoglobin 28.3 L Mean Corpuscular Hemoglobin Concent 30.2 L Red Cell Distribution Width 20.3 H Platelet Count 338 Mean Platelet Volume 11.2 H Neutrophils % 70.9 Lymphocytes % 15.9 Monocytes % 7.6 Eosinophils % 5.1 Basophils % 0.2 Nucleated Red Blood Cells % 0.0 Neutrophils # 6.6 Lymphocytes # 1.5 Monocytes # 0.7 Eosinophils # 0.5 Basophils # 0.0 Nucleated Red Blood Cells # 0.0 Sodium Level 145 H Potassium Level 4.1 Chloride Level 100 Carbon Dioxide Level 27 Anion Gap 22 H Blood Urea Nitrogen 47 #H Creatinine 2.23 H Glucose Level 110 Calcium Level 9.6 Phosphorus Level 4.1 Magnesium Level 1.9 Test 01/11/17 05:47 Bedside Glucose 121 Medications Medications Current Medications Acetaminophen (Tylenol Liquid) 650 mg Q4H PRN GTB PAIN OR TEMP ABOVE 38C; Start 01/07/17 at 13:00 Amiodarone HCl (Cordarone) 200 mg DAILY GTB Last administered on 01/10/17 09:10 ; Admin Dose 200 MG; Start 01/07/17 at 13:00 Diphenhydramine HCl (Benadryl) 25 mg Q6H PRN GTB ITCHING Last administered on 06:23; Admin Dose 25 MG; Start 01/07/17 at 13:00 Albuterol/ Ipratropium (Duoneb) 3 ml Q2H PRN NEB WHEEZING AND SOB; Start at 13:00 Multivit/Ca Carb/ B Cmplx/FA/Prenat (Macrina-Brigitte) 1 tab DAILY GTB Last administered on 01/10/17 09:09; Admin Dose 1 TAB; Start 01/08/17 at 09:00 Ondansetron HCl (Zofran Tab) 4 mg Q4H PRN GTB NAUSEA AND/OR VOMITING; Start 01/07/17 at 13:00 Sodium Phosphate (Kphos Neutral) 250 mg BID GTB Last administered on 01/10/17 21:08; Admin Dose 250 MG; Start 01/07/17 at 21:00 Miscellaneous Information 1 ea NOTE XX ; Start 01/07/17 at 23:45 Glucose (Glutose) 15 gm Q15M PRN PO DECREASED GLUCOSE; Start 01/07/17 at 23:45 Glucose (Glutose) 22.5 gm Q15M PRN PO DECREASED GLUCOSE; Start 01/07/17 at 23:45 Dextrose (D50w Syringe) 25 ml Q15M PRN IV DECREASED GLUCOSE; Start 01/07/17 at 23:45 Dextrose (D50w Syringe) 50 ml Q15M PRN IV DECREASED GLUCOSE; Start 01/07/17 at 23:45 Glucagon (Glucagen) 1 mg Q15M PRN IM DECREASED GLUCOSE; Start 01/07/17 at 23:45 Glucose (Glutose) 15 gm Q15M PRN BUCCAL DECREASED GLUCOSE; Start 01/07/17 at 23: 45 Miscellaneous Information (Pending [facility] Order For Wound Care) This patient lopez... PRN PRN XX WOUND CARE; Start 01/08/17 at 07:30 Insulin Aspart NOVOLOG *MILD* ALGORI... Q6 SC ; Start 01/08/17 at 12:00 Caspofungin/ Sodium Chloride (Cancidas/NS) 250 ml @ 250 mls/hr Q24H IVPB Last administered on 01/10/17 14:05; Admin Dose 250 MLS/HR; Start 01/09/17 at 12:00 Heparin Sodium (Porcine) (Heparin (5000 Units/0.5 ml)) 5,000 unit BID SC Last administered on 01/10/17 21:10; Admin Dose 5,000 UNIT; Start 01/10/17 at 21:00 Lorazepam (Ativan) 1 mg Q6H PRN PO Agitation Last administered on 01/10/17 21: 08; Admin Dose 1 MG; Start 01/10/17 at 13:30 Linezolid (Zyvox) 600 mg BID PO Last administered on 01/10/17 23:03; Admin Dose 600 MG; Start 01/10/17 at 15:00 KIAH GARCIA MD Jan 11, 2017 08:23
[2017-01-11] MEDS: SOD PHOS MONO/DIBAS 250 MG TAB GTB SCH ×2 (09:00→21:26)
[2017-01-11] MEDS ORDERED: LORAZEPAM 2 MG INJ IV PRN (09:37)
--- NOTE | 2017-01-11 09:50 | RADRPT ---
PROCEDURE: XR Chest. CLINICAL INDICATION: Respiratory failure TECHNIQUE: An AP view of the chest was obtained. COMPARISON: Chest x-ray dated FINDINGS: A tracheostomy tube is in place. Gastrostomy tube is in place. There is a right chest Perma-Cath wit h tip near the cavoatrial junction. There is a left subclavian dual chamber pacemaker. Lung volumes are low. There are right lung interstitial opacities. . No pleural effusion or pneu mothorax is seen. The cardiomediastinal silhouette is within normal limits for size. Calcifications are seen within the aortic arch. The osseous structures demonstrate senescent changes. IMPRESSION: 1. Right lung interstitial opacities may reflect asymmetric interstitial edema or pneumonia. Overa ll, no significant interval change. 2. Low lung volumes. 3. Aortic atherosclerosis. 3. Tubes and lines, as described above. RPTAT: HH .Kati Roach MD, MD Date Time Electronically viewed and signed by .Kati Roach MD, on 01/11/2017 09:50 .G/
[2017-01-11] MEDS: ZYVOX 600 MG TAB PO SCH ×2 (10:48→21:26)
[2017-01-11] MEDS: HEPARIN 5,000 UNIT/0.5 ML VIAL SC SCH ×2 (10:48→21:38)
[2017-01-11] MEDS: LANSOPRAZOLE 30 MG CAP GTB SCH (10:48)
[2017-01-11] MEDS: MULTIVIT/CA CARB/B CMPLX/FA TAB GTB SCH (10:48)
[2017-01-11] MEDS: AMIODARONE 200 MG TAB GTB SCH (10:48)
[2017-01-11] MEDS ORDERED: ALBUMIN HUMAN 25% 100 ML IV ONE ×2 (11:00→15:30)
[2017-01-11] MEDS ORDERED: MIDAZOLAM (DRIP) 50 mg/50 mL 50 ML IV SCH (11:00)
[2017-01-11] MEDS ORDERED: SOD CHLORIDE 0.9% 500 ML IV ONE (11:00)
[2017-01-11] MEDS: CASPOFUNGIN 50 MG in SOD CHLORIDE 0.9% 250 ML IVPB SCH (12:03)
--- NOTE | 2017-01-11 12:41 | CONS ---
Date/Time of Note Date/Time of Note DATE: 01/11/17 TIME: 12:38 Assessment/Plan Assessment/Plan Chief Complaint/Hosp Course Subjective: Transferred to ICU secondary to acute respiratory failure, lethargic , looks comfortable, no fevers Vital signs: Temperature 98.2 pulse 93 respirations 20 blood pressure 104/74 saturation 93% on vent Laboratory data: WBC 9.4 H&H 8.7 and 28.8 platelets 338 no shift no balance Indwelling: Tracheostomy, PEG, permacath Antibiotics: Cancidas, Zyvox Microbiology: Urine culture growing Dilcia glabrata, wound culture growing enterococcus species Physical examination: Chronically ill-appearing elderly woman who is in no distress. Head atraumatic normocephalic, sclera nonicteric, neck is supple, tracheostomy present. Chest rise symmetrical, breath sounds diminished basis. Heart S1-S2. Abdomen soft, bowel tones present. Extremities no cyanosis Assessment: 1. Acute on chronic Hypoxemic Resp Failure: suspect pneumonia 2. UTI 3. VDRF 4. ESRD on HD 5. Sacral decubitus 6. Allergy: Vancomycin Plan: Decompensated overnight with poor oxygenation and evidence of pulmonary infiltrates on chest x-ray, will add meropenem, continue other antibiotics, continue vent management as per pulmonary Discussed with Dr Valadez Problems: Consultation Date/Type/Reason Admit Date/Time Jan 07, 2017 at 12:43 Initial Consult Date 01/08/17 Type of Consultation: Infectious disease Referring Provider: YAYO EDGAR DO Exam/Review of Systems Vital Signs Vitals Vital Signs Date Time Temp Pulse Resp B/P Pulse Ox O2 Delivery O2 Flow Rate FiO2 01/11/17 11:45 93 20 104/74 93 01/11/17 11:00 Mechanical Ventilator 01/11/17 10:55 100 01/11/17 09:45 98.2 Intake and Output 01/10/17 01/10/17 01/11/17 15:00 23:00 07:00 Intake Total 830 ml 660 ml Balance 830 ml 660 ml Results Result Diagram: 01/11/17 0540 01/11/17 0540 Results 24 hrs Laboratory Tests Test 01/10/17 17:36 01/10/17 23:09 01/11/17 05:40 01/11/17 05:47 Bedside Glucose 99 119 121 White Blood Count 9.4 Red Blood Count 3.07 L Hemoglobin 8.7 L Hematocrit 28.8 L Mean Corpuscular Volume 93.8 Mean Corpuscular Hemoglobin 28.3 L Mean Corpuscular Hemoglobin Concent 30.2 L Red Cell Distribution Width 20.3 H Platelet Count 338 Mean Platelet Volume 11.2 H Neutrophils % 70.9 Lymphocytes % 15.9 Monocytes % 7.6 Eosinophils % 5.1 Basophils % 0.2 Nucleated Red Blood Cells % 0.0 Neutrophils # 6.6 Lymphocytes # 1.5 Monocytes # 0.7 Eosinophils # 0.5 Basophils # 0.0 Nucleated Red Blood Cells # 0.0 Sodium Level 145 H Potassium Level 4.1 Chloride Level 100 Carbon Dioxide Level 27 Anion Gap 22 H Blood Urea Nitrogen 47 #H Creatinine 2.23 H Glucose Level 110 Calcium Level 9.6 Phosphorus Level 4.1 Magnesium Level 1.9 Test 01/11/17 12:02 Bedside Glucose 81 Medications Medications Current Medications Acetaminophen (Tylenol Liquid) 650 mg Q4H PRN GTB PAIN OR TEMP ABOVE 38C; Start 01/07/17 at 13:00 Amiodarone HCl (Cordarone) 200 mg DAILY GTB Last administered on 01/11/17 10:48 ; Admin Dose 200 MG; Start 01/07/17 at 13:00 Diphenhydramine HCl (Benadryl) 25 mg Q6H PRN GTB ITCHING Last administered on 06:23; Admin Dose 25 MG; Start 01/07/17 at 13:00 Multivit/Ca Carb/ B Cmplx/FA/Prenat (Macrina-Brigitte) 1 tab DAILY GTB Last administered on 01/11/17 10:48; Admin Dose 1 TAB; Start 01/08/17 at 09:00 Ondansetron HCl (Zofran Tab) 4 mg Q4H PRN GTB NAUSEA AND/OR VOMITING; Start 01/07/17 at 13:00 Sodium Phosphate (Kphos Neutral) 250 mg BID GTB Last administered on 01/11/17 09:00; Admin Dose 250 MG; Start 01/07/17 at 21:00 Miscellaneous Information 1 ea NOTE XX ; Start 01/07/17 at 23:45 Glucose (Glutose) 15 gm Q15M PRN PO DECREASED GLUCOSE; Start 01/07/17 at 23:45 Glucose (Glutose) 22.5 gm Q15M PRN PO DECREASED GLUCOSE; Start 01/07/17 at 23:45 Dextrose (D50w Syringe) 25 ml Q15M PRN IV DECREASED GLUCOSE; Start 01/07/17 at 23:45 Dextrose (D50w Syringe) 50 ml Q15M PRN IV DECREASED GLUCOSE; Start 01/07/17 at 23:45 Glucagon (Glucagen) 1 mg Q15M PRN IM DECREASED GLUCOSE; Start 01/07/17 at 23:45 Glucose (Glutose) 15 gm Q15M PRN BUCCAL DECREASED GLUCOSE; Start 01/07/17 at 23: 45 Miscellaneous Information (Pending Santyl Order For Wound Care) This patient lopez... PRN PRN XX WOUND CARE; Start 01/08/17 at 07:30 Insulin Aspart NOVOLOG *MILD* ALGORI... Q6 SC ; Start 01/08/17 at 12:00 Caspofungin/ Sodium Chloride (Cancidas/NS) 250 ml @ 250 mls/hr Q24H IVPB Last administered on 01/11/17 12:03; Admin Dose 250 MLS/HR; Start 01/09/17 at 12:00 Heparin Sodium (Porcine) (Heparin (5000 Units/0.5 ml)) 5,000 unit BID SC Last administered on 01/11/17 10:48; Admin Dose 5,000 UNIT; Start 01/10/17 at 21:00 Lorazepam (Ativan) 1 mg Q6H PRN PO Agitation Last administered on 01/10/17 21: 08; Admin Dose 1 MG; Start 01/10/17 at 13:30 Linezolid 600 mg 600 mg BID PO Last administered on 01/11/17 10:48; Admin Dose 600 MG; Start 01/10/17 at 15:00 Midazolam HCl (Versed) 50 ml @ 1 mls/hr TITRATE IV ; Start 01/11/17 at 11:00 AI FUNEZ NP Jan 11, 2017 12:40
[2017-01-11] MEDS: ALBUTEROL 18 GM INHALER INH SCH ×2 (13:51→19:47)
[2017-01-11] MEDS: IPRATROPIUM (HFA) 12.9 GM INHALER INH SCH ×2 (13:52→19:47)
[2017-01-11 13:54] LABS: AADO2 Arterial 614.7 mmHg (7.0-24.0); Arterial Base Excess 0.5 mmol/L (-3.0-3); Arterial COHb 0.2 % (0.0-3.0); Arterial Fraction of Oxyhgb 89.9 % (93.0-99.0); Arterial HCO3 24.6 mmol/L (22.0-26.0); Arterial MetHb 0.3 % (0.0-1.5); Arterial Total Hemglobin 9.8 g/dl (12.0-18.0); MODE VENT - AC
--- NOTE | 2017-01-11 16:28 | CONS ---
Date/Time of Note Date/Time of Note DATE: 01/11/17 TIME: 16:26 Consult Date/Type/Reason Admit Date/Time Jan 07, 2017 at 12:43 Initial Consult Date 01/08/17 Type of Consultation: Pulmonary Ordering Provider: YAYO EDGAR DO Subjective Patient transferred to intensive care unit this morning for increasing shortness of breath hypoxemia agitation Objective Vital Signs Date Time Temp Pulse Resp B/P Pulse Ox O2 Delivery O2 Flow Rate FiO2 01/11/17 15:45 88 01/11/17 14:00 22 105/72 94 Mechanical Ventilator 01/11/17 13:43 100 01/11/17 12:00 97.2 Intake and Output 01/10/17 01/10/17 01/11/17 15:00 23:00 07:00 Intake Total 830 ml 660 ml Balance 830 ml 660 ml Exam PHYSICAL EXAMINATION GENERAL: Elderly lady on mechanical ventilation via tracheostomy, labored breathing VITAL SIGNS: see below. HEENT: Pupils equal, round, and reactive to light. Tracheostomy site clean and intact. CARDIAC: S1, S2, 1/6 systolic ejection murmur CHEST: Diminished air entry bilaterally. ABDOMEN: Mildly distended. Bowel sounds present no guarding or rebound EXTREMITIES: No cyanosis, clubbing edema +1 NEUROLOGIC: Generalized weakness Results/Medications Result Diagram: 01/11/17 0540 01/11/17 0540 Results 24 hrs Laboratory Tests Test 01/10/17 17:36 01/10/17 23:09 01/11/17 05:40 01/11/17 05:47 Bedside Glucose 99 119 121 White Blood Count 9.4 Red Blood Count 3.07 L Hemoglobin 8.7 L Hematocrit 28.8 L Mean Corpuscular Volume 93.8 Mean Corpuscular Hemoglobin 28.3 L Mean Corpuscular Hemoglobin Concent 30.2 L Red Cell Distribution Width 20.3 H Platelet Count 338 Mean Platelet Volume 11.2 H Neutrophils % 70.9 Lymphocytes % 15.9 Monocytes % 7.6 Eosinophils % 5.1 Basophils % 0.2 Nucleated Red Blood Cells % 0.0 Neutrophils # 6.6 Lymphocytes # 1.5 Monocytes # 0.7 Eosinophils # 0.5 Basophils # 0.0 Nucleated Red Blood Cells # 0.0 Sodium Level 145 H Potassium Level 4.1 Chloride Level 100 Carbon Dioxide Level 27 Anion Gap 22 H Blood Urea Nitrogen 47 #H Creatinine 2.23 H Glucose Level 110 Calcium Level 9.6 Phosphorus Level 4.1 Magnesium Level 1.9 Test 01/11/17 07:53 01/11/17 12:02 Blood Gas Specimen Source Blood arterial Arterial Blood Date Drawn 01/11/2017 8:05:00 AM Arterial Blood pH (Temp corrected) 7.437 Arterial Blood pCO2 (Temp correct) 37.3 Arterial Blood pO2 (Temp corrected) 61.0 L Arterial Blood HCO3 24.6 Arterial Blood Base Excess 0.5 Arterial Blood Oxygen Saturation 90.4 L Ivan Test N/A Arterial Blood Gas Puncture Site LB Arterial Blood Carboxyhemoglobin 0.2 Arterial Blood Methemoglobin 0.3 Blood Gas A-a O2 Differential 614.7 H Oxyhemoglobin Percent 89.9 L Total Hemoglobin 9.8 L Blood Gas Temperature 37.0 Blood Gas Respiration Rate 16.0 Blood Gas Actual Respiration Rate 33 Blood Gas Modality VENT - AC FiO2 100.0 Blood Gas Tidal Volume 450.0 Blood Gas High PEEP Setting 5.0 Blood Gas Notified Whom TM Blood Gas Notified Time 01/11/2017 8:28:00 AM Bedside Glucose 81 Medications Current Medications Acetaminophen (Tylenol Liquid) 650 mg Q4H PRN GTB PAIN OR TEMP ABOVE 38C; Start 01/07/17 at 13:00 Amiodarone HCl (Cordarone) 200 mg DAILY GTB Last administered on 01/11/17 10:48 ; Admin Dose 200 MG; Start 01/07/17 at 13:00 Diphenhydramine HCl (Benadryl) 25 mg Q6H PRN GTB ITCHING Last administered on 06:23; Admin Dose 25 MG; Start 01/07/17 at 13:00 Multivit/Ca Carb/ B Cmplx/FA/Prenat (Macrina-Brigitte) 1 tab DAILY GTB Last administered on 01/11/17 10:48; Admin Dose 1 TAB; Start 01/08/17 at 09:00 Ondansetron HCl (Zofran Tab) 4 mg Q4H PRN GTB NAUSEA AND/OR VOMITING; Start 01/07/17 at 13:00 Sodium Phosphate (Kphos Neutral) 250 mg BID GTB Last administered on 01/11/17 09:00; Admin Dose 250 MG; Start 01/07/17 at 21:00 Miscellaneous Information 1 ea NOTE XX ; Start 01/07/17 at 23:45 Glucose (Glutose) 15 gm Q15M PRN PO DECREASED GLUCOSE; Start 01/07/17 at 23:45 Glucose (Glutose) 22.5 gm Q15M PRN PO DECREASED GLUCOSE; Start 01/07/17 at 23:45 Dextrose (D50w Syringe) 25 ml Q15M PRN IV DECREASED GLUCOSE; Start 01/07/17 at 23:45 Dextrose (D50w Syringe) 50 ml Q15M PRN IV DECREASED GLUCOSE; Start 01/07/17 at 23:45 Glucagon (Glucagen) 1 mg Q15M PRN IM DECREASED GLUCOSE; Start 01/07/17 at 23:45 Glucose (Glutose) 15 gm Q15M PRN BUCCAL DECREASED GLUCOSE; Start 01/07/17 at 23: 45 Miscellaneous Information (Pending [facility] Order For Wound Care) This patient lopez... PRN PRN XX WOUND CARE; Start 01/08/17 at 07:30 Insulin Aspart NOVOLOG *MILD* ALGORI... Q6 SC ; Start 01/08/17 at 12:00 Caspofungin/ Sodium Chloride (Cancidas/NS) 250 ml @ 250 mls/hr Q24H IVPB Last administered on 01/11/17 12:03; Admin Dose 250 MLS/HR; Start 01/09/17 at 12:00 Heparin Sodium (Porcine) (Heparin (5000 Units/0.5 ml)) 5,000 unit BID SC Last administered on 01/11/17 10:48; Admin Dose 5,000 UNIT; Start 01/10/17 at 21:00 Lorazepam (Ativan) 1 mg Q6H PRN PO Agitation Last administered on 01/10/17 21: 08; Admin Dose 1 MG; Start 01/10/17 at 13:30 Linezolid 600 mg 600 mg BID PO Last administered on 01/11/17 10:48; Admin Dose 600 MG; Start 01/10/17 at 15:00 Midazolam HCl 50 ml @ 1 mls/hr TITRATE IV ; Start 01/11/17 at 11:00 Meropenem 100 ml @ 200 mls/hr Q24H IVPB ; Start 01/11/17 at 14:00 Albumin Human 100 ml @ 100 mls/hr ONCE ONCE IV Last administered on 01/11/17t 15:47; Admin Dose 100 MLS/HR; Start 01/11/17 at 15:30; Stop 01/11/17 at 16:29 Albumin Human (Albumin Human 25%) 100 ml @ 100 mls/hr ONCE PRN IV NOTE; Start 01/11/17 at 16:30; Stop 01/11/17 at 23:56 Assessment/Plan Chief Complaint/Hosp Course IMP: 1. Acute on chronic hypoxemic respiratory failure possible component of worsening volume overload in addition to pneumonia 2. UTI 3. VDRF 4. ESRD on HD RECS: 1. Decrease FiO2 and PEEP as needed 2. Repeat ABG on these settings sedation if needed 3. CT chest noncontrast 4. continue antibiotics per ID 5. continue Mucomyst Discussed with daughter at bedside Prognosis guarded Critical care time 40 minutes Problems: RHONDA BUENROSTRO MD, [facility] Jan 11, 2017 16:28
[2017-01-11] MEDS ORDERED: ALBUMIN HUMAN 25% 100 ML IV PRN (16:30)
[2017-01-11] MEDS ORDERED: HEPARIN 1000 UNITS/ML 10 ML INJ CATHETER ONE (17:00)
[2017-01-11] MEDS: MEROPENEM 500 MG/100 ML (PMX) 100 ML IVPB SCH (21:25)
[2017-01-11] MEDS: EPOETIN 4000 UNITS/1 ML INJ (ESRD) SC SCH (21:27)
[2017-01-12] VITALS (54 sets, daily range): BP systolic 49–124; BP diastolic 21–92; PULSE 65–90; RESP 8–30
[2017-01-12] MEDS ORDERED: MIDODRINE 5 MG TAB PO ONE
[2017-01-12] MEDS ORDERED: ALBUMIN HUMAN 25% 100 ML IV ONE
[2017-01-12] MEDS: IPRATROPIUM (HFA) 12.9 GM INHALER INH SCH ×4 (01:25→19:14)
[2017-01-12] MEDS: ACETYLCYSTEINE 20% 4 ML VIAL NEB SCH ×4 (01:25→19:14)
[2017-01-12] MEDS: ALBUTEROL 18 GM INHALER INH SCH ×4 (01:25→19:14)
[2017-01-12 05:45] LABS: ADD SCAN DIFF NO
[2017-01-12 05:51] LABS: BASOPHILS % 0.2 % (0.0-2.0); EOSINOPHILS # 0.7 10^3/ul (0.0-0.5); EOSINOPHILS % 8.5 % (0.0-7.0); HEMATOCRIT 24.2 % (37.0-47.0); HEMOGLOBIN 7.4 g/dl (12.0-16.0); LYMPHOCYTES # 1.3 10^3/ul (0.8-2.9); LYMPHOCYTES % 15.1 % (15.0-51.0); MEAN CORPUSCULAR HEMOGLOBIN 28.5 pg (29.0-33.0); MEAN CORPUSCULAR HGB CONC 30.6 g/dl (32.0-37.0); MEAN CORPUSCULAR VOLUME 93.1 fl (82.0-101.0); MEAN PLATELET VOLUME 11.1 fl (7.4-10.4); MONOCYTE # 0.7 10^3/ul (0.3-0.9); MONOCYTES % 7.9 % (0.0-11.0); NEUTROPHIL # 5.7 10^3/ul (1.6-7.5); NEUTROPHILS % 67.8 % (39.0-77.0); PLATELET COUNT 246 10^3/UL (140-415); RED CELL DISTRIBUTION WIDTH 19.9 % (11.5-14.5); WHITE BLOOD COUNT 8.5 10^3/ul (4.8-10.8)
[2017-01-12] MEDS: INSULIN ASPART [NOVOLOG] 3 ML PEN SC SCH ×4 (06:03→17:27)
[2017-01-12 06:21] LABS: CALCIUM 9.2 mg/dl (8.4-10.2); CREATININE 1.85 mg/dl (0.44-1.00); MAGNESIUM 1.8 mg/dl (1.7-2.5); PHOSPHORUS 2.9 mg/dl (2.5-4.9); POTASSIUM 3.6 mmol/L (3.5-5.1)
--- NOTE | 2017-01-12 06:59 | PN ---
Date/Time of Note Date/Time of Note DATE: 01/12/17 TIME: 06:54 Assessment/Plan VTE Prophylaxis VTE Prophylaxis Intervention: SCD's Lines/Catheters IV Catheter Type (from Nrs): Peripheral IV Urinary Cath still in place: No Assessment/Plan Chief Complaint/Hosp Course 1. acute on chronic hypoxemic hypercapnic respiratory failure: s/p trach: vent dep. now with more hypoxemia 2. Pafib; currently remains in NSR 3. HX Sick sinus syndrome: s/p PPM: pacemaker was interrogated and personally reviewed on 01/08/17 with normal functioning pacemaker. 4. pneumonia 5. ESRD on HD 6. HX HTN: stable now 7. severe anemia: s/p multiple transfusion 8. severe hypoxemia cont vent support not anticoagulated due to concerns about bleeding and severe anemia. abx as per IM/ ID and pulm team CONT HD HR has remained stable. BP is currently stable but will monitor closely correct lytes prn transfusion prn cont ICU care more than 36 minutes of critical care time was spent in management and treatment of this critically ill pt, excluding any procedures. Problems: Subjective 24 Hr Interval Summary Free Text/Dictation d/w staff and rhythm was reviewed. pt remains in NSR. no afib EVENTS noted. pt with increasing sob and hypoxemia and had to be transferred to ICU. pt s/p HD as well. pt with no chest pain. pt is still on vent OBJECTIVE. General: s/p trach on vent. in mild distress HEENT: NC/AT. pupils are equal. round. NECK: s/p trach. no stridor. CV: RRR. systolic murmur; no gallop or rubs. PULM: no wheezing but + rhonchi anteriorly GI: SOFT, NT, ND, no rebound or guarding . s/p PEG Extremity: trace B/L LE edema. no clubbing. neuro: awake and alert responds appropriately Psych: anxious but pleasant rectal: deferred Derm: + diffuse echymosis Exam/Review of Systems Vital Signs Vitals Vital Signs Date Time Temp Pulse Resp B/P Pulse Ox O2 Delivery O2 Flow Rate FiO2 01/12/17 05:15 78 20 87/55 97 Mechanical Ventilator 01/12/17 05:04 80 01/12/17 04:00 98.0 Intake and Output 01/11/17 01/11/17 01/12/17 15:00 23:00 07:00 Intake Total 360 ml 1170 ml 815 ml Output Total 3500 ml Balance 360 ml -2330 ml 815 ml Results Result Diagram: 01/12/17 0510 01/12/17 0510 Results 24 hrs Laboratory Tests Test 01/11/17 07:53 01/11/17 12:02 01/11/17 17:31 01/12/17 00:06 Blood Gas Specimen Source Blood arterial Arterial Blood Date Drawn 01/11/2017 8:05:00 AM Arterial Blood pH (Temp corrected) 7.437 Arterial Blood pCO2 (Temp correct) 37.3 Arterial Blood pO2 (Temp corrected) 61.0 L Arterial Blood HCO3 24.6 Arterial Blood Base Excess 0.5 Arterial Blood Oxygen Saturation 90.4 L Ivan Test N/A Arterial Blood Gas Puncture Site LB Arterial Blood Carboxyhemoglobin 0.2 Arterial Blood Methemoglobin 0.3 Blood Gas A-a O2 Differential 614.7 H Oxyhemoglobin Percent 89.9 L Total Hemoglobin 9.8 L Blood Gas Temperature 37.0 Blood Gas Respiration Rate 16.0 Blood Gas Actual Respiration Rate 33 Blood Gas Modality VENT - AC FiO2 100.0 Blood Gas Tidal Volume 450.0 Blood Gas High PEEP Setting 5.0 Blood Gas Notified Whom TM Blood Gas Notified Time 01/11/2017 8:28:00 AM Bedside Glucose 81 125 106 Test 01/12/17 05:10 01/12/17 05:56 White Blood Count 8.5 Red Blood Count 2.60 L Hemoglobin 7.4 L Hematocrit 24.2 L Mean Corpuscular Volume 93.1 Mean Corpuscular Hemoglobin 28.5 L Mean Corpuscular Hemoglobin Concent 30.6 L Red Cell Distribution Width 19.9 H Platelet Count 246 # Mean Platelet Volume 11.1 H Neutrophils % 67.8 Lymphocytes % 15.1 Monocytes % 7.9 Eosinophils % 8.5 H Basophils % 0.2 Nucleated Red Blood Cells % 0.0 Neutrophils # 5.7 Lymphocytes # 1.3 Monocytes # 0.7 Eosinophils # 0.7 H Basophils # 0.0 Nucleated Red Blood Cells # 0.0 Sodium Level 136 Potassium Level 3.6 Chloride Level 98 Carbon Dioxide Level 27 Anion Gap 15 # Blood Urea Nitrogen 34 #H Creatinine 1.85 H Glucose Level 113 Lactic Acid Level 1.6 Calcium Level 9.2 Phosphorus Level 2.9 Magnesium Level 1.8 Bedside Glucose 148 Medications Medications Current Medications Acetaminophen (Tylenol Liquid) 650 mg Q4H PRN GTB PAIN OR TEMP ABOVE 38C; Start 01/07/17 at 13:00 Amiodarone HCl (Cordarone) 200 mg DAILY GTB Last administered on 01/11/17 10:48 ; Admin Dose 200 MG; Start 01/07/17 at 13:00 Diphenhydramine HCl (Benadryl) 25 mg Q6H PRN GTB ITCHING Last administered on 06:23; Admin Dose 25 MG; Start 01/07/17 at 13:00 Multivit/Ca Carb/ B Cmplx/FA/Prenat (Macrina-Brigitte) 1 tab DAILY GTB Last administered on 01/11/17 10:48; Admin Dose 1 TAB; Start 01/08/17 at 09:00 Ondansetron HCl (Zofran Tab) 4 mg Q4H PRN GTB NAUSEA AND/OR VOMITING; Start 01/07/17 at 13:00 Sodium Phosphate (Kphos Neutral) 250 mg BID GTB Last administered on 01/11/17 21:26; Admin Dose 250 MG; Start 01/07/17 at 21:00 Miscellaneous Information 1 ea NOTE XX ; Start 01/07/17 at 23:45 Glucose (Glutose) 15 gm Q15M PRN PO DECREASED GLUCOSE; Start 01/07/17 at 23:45 Glucose (Glutose) 22.5 gm Q15M PRN PO DECREASED GLUCOSE; Start 01/07/17 at 23:45 Dextrose (D50w Syringe) 25 ml Q15M PRN IV DECREASED GLUCOSE; Start 01/07/17 at 23:45 Dextrose (D50w Syringe) 50 ml Q15M PRN IV DECREASED GLUCOSE; Start 01/07/17 at 23:45 Glucagon (Glucagen) 1 mg Q15M PRN IM DECREASED GLUCOSE; Start 01/07/17 at 23:45 Glucose (Glutose) 15 gm Q15M PRN BUCCAL DECREASED GLUCOSE; Start 01/07/17 at 23: 45 Miscellaneous Information (Pending [facility] Order For Wound Care) This patient lopez... PRN PRN XX WOUND CARE; Start 01/08/17 at 07:30 Insulin Aspart NOVOLOG *MILD* ALGORI... Q6 SC Last administered on 01/12/17 06: 03; Admin Dose 1 UNIT; Start 01/08/17 at 12:00 Caspofungin/ Sodium Chloride (Cancidas/NS) 250 ml @ 250 mls/hr Q24H IVPB Last administered on 01/11/17 12:03; Admin Dose 250 MLS/HR; Start 01/09/17 at 12:00 Heparin Sodium (Porcine) (Heparin (5000 Units/0.5 ml)) 5,000 unit BID SC Last administered on 01/11/17 21:38; Admin Dose 5,000 UNIT; Start 01/10/17 at 21:00 Lorazepam (Ativan) 1 mg Q6H PRN PO Agitation Last administered on 01/10/17 21: 08; Admin Dose 1 MG; Start 01/10/17 at 13:30 Linezolid 600 mg 600 mg BID PO Last administered on 01/11/17 21:26; Admin Dose 600 MG; Start 01/10/17 at 15:00 Midazolam HCl 50 ml @ 1 mls/hr TITRATE IV ; Start 01/11/17 at 11:00 Meropenem (Merrem 500 Mg/ 100 ml (Pmx)) 100 ml @ 200 mls/hr Q24H IVPB Last administered on 01/11/17 21:25; Admin Dose 200 MLS/HR; Start 01/11/17 at 14:00 KIAH GARCIA MD Jan 12, 2017 06:58
[2017-01-12 07:24] LABS: AADO2 Arterial 456.2 mmHg (7.0-24.0); Allen Test ACCEPTAB; Arterial Base Excess 1.1 mmol/L (-3.0-3); Arterial COHb 0.1 % (0.0-3.0); Arterial HCO3 24.5 mmol/L (22.0-26.0); Arterial MetHb 0.2 % (0.0-1.5); Arterial Total Hemglobin 9.7 g/dl (12.0-18.0); MODE VENT - AC
--- NOTE | 2017-01-12 07:50 | RADRPT ---
PROCEDURE: XR Chest 1 view. CLINICAL INDICATION: Shortness of breath TECHNIQUE: AP views of the chest was obtained. COMPARISON: Yesterday FINDINGS: The heart is large. Calcified atherosclerosis is noted in the aorta. Tracheostomy tube is stable an d appears in grossly appropriate location. Right-sided dialysis catheter is unchanged. Left-sided dual chamber pacemaker has its leads over the heart and is stable. Patchy right lower lung infiltra shelia are stable. Atelectasis is noted in the left lower lobe. The osseous structures are unchanged. IMPRESSION: Cardiomegaly with calcified atherosclerosis in the aorta. Stable right lower lung infiltrates. Subsegmental atelectasis in the left lower lobe. RPTAT: AA .Henry Flores MD, Date Time Electronically viewed and signed by .Henry Flores MD, MD on 01/12/2017 07:50 .P/
--- NOTE | 2017-01-12 08:12 | PN ---
Date/Time of Note Date/Time of Note DATE: 01/12/17 TIME: 08:09 Assessment/Plan VTE Prophylaxis VTE Prophylaxis Intervention: other Lines/Catheters IV C[facility]ter Type (from [facility] Peripheral IV Urinary Cath still in place: No Assessment/Plan Chief Complaint/Hosp Course 1. hypoxemic respiratory failure. etiology likely multifactorial, chf, ? pna, mucus plug, questionable PE -Consider CT angiogram. Will defer to pulmonary -Vent settings have been reviewed. -Monitor 2. Possible sepsis. Secondary to UTI, questionable pneumonia. Urinalysis positive for pyuria. Urine culture is positive yyeast. chest x-ray suggests possible infiltrate - Continue antifungal therapy. Follow-up with infectious disease 3. Encephalopathy, acute. Etiology is likely secondary to toxic metabolic -Mental status appears to be improving continue to monitor 4. Dysphagia, status post percutaneous endoscopic gastrostomy. -Continue tube feeding. 5. ESRD -HD tomorrow 7. Atrial fibrillation, currently rate controlled. Continue medical management. -Off anticoagulation secondary to previous bleed - Continue beta louise. We will follow up with cardiology. 8. Anemia. Continue to monitor hemoglobin and hematocrit levels. Continue Epogen 9. Mineral bone disease. Continue to monitor calcium and phosphorus levels. 10. History of breast cancer status post bilateral mastectomy. 11. Congestive heart failure. Continue medical management. 12. Diabetes. Continue Accu-Cheks and sliding scale. 13. History of Clostridium difficile colitis, status post treatment. 14. Gastrointestinal and deep venous thrombosis prophylaxis. Continue Protonix , SCD 15. Hypokalemia replete with potassium chloride Please note I spent over 35 minutes critical care time with this patient Problems: Subjective 24 Hr Interval Summary Free Text/Dictation Patient was transferred yesterday from telemetry to ICU due to respiratory distress. Patient after being briefly bagged was placed back on vent. Patient' s on FiO2 80% has been stable. I discussed case with pulmonary. May consider possible CT angiogram. . Patient hemodialysis yesterday with approximately 3 L removed. Overnight patient was hypotensive and was given IV albumin with good response Exam/Review of Systems Vital Signs Vitals Vital Signs Date Time Temp Pulse Resp B/P Pulse Ox O2 Delivery O2 Flow Rate FiO2 01/12/17 05:15 78 20 87/55 97 Mechanical Ventilator 01/12/17 05:04 80 01/12/17 04:00 98.0 Intake and Output 7/11/2301/11/17 01/12/17 15:00 23:00 07:00 Intake Total 360 ml 1170 ml 815 ml Output Total 3500 ml Balance 360 ml -2330 ml 815 ml Exam HEENT: Head is normocephalic. NECK: Supple. HEART: Irregular LUNGS: Show diminished breath sounds at base. ABDOMEN: Soft, nontender to palpation without rebound or guarding. EXTREMITIES: Negative for clubbing, cyanosis. Positive edema, diffuse anasarca DERMATOLOGIC: No rashes. MUSCULOSKELETAL: No joint effusions, . NEUROLOGIC: No change in exam. Results Result Diagram: 01/12/17 0510 01/12/1710 Results 24 hrs Laboratory Tests Test 01/11/17 12:02 01/11/17 17:31 01/12/17 00:06 01/12/17 05:10 Bedside Glucose 81 125 106 White Blood Count 8.5 Red Blood Count 2.60 L Hemoglobin 7.4 L Hematocrit 24.2 L Mean Corpuscular Volume 93.1 Mean Corpuscular Hemoglobin 28.5 L Mean Corpuscular Hemoglobin Concent 30.6 L Red Cell Distribution Width 19.9 H Platelet Count 246 # Mean Platelet Volume 11.1 H Neutrophils % 67.8 Lymphocytes % 15.1 Monocytes % 7.9 Eosinophils % 8.5 H Basophils % 0.2 Nucleated Red Blood Cells % 0.0 Neutrophils # 5.7 Lymphocytes # 1.3 Monocytes # 0.7 Eosinophils # 0.7 H Basophils # 0.0 Nucleated Red Blood Cells # 0.0 Sodium Level 136 Potassium Level 3.6 Chloride Level 98 Carbon Dioxide Level 27 Anion Gap 15 # Blood Urea Nitrogen 34 #H Creatinine 1.85 H Glucose Level 113 Lactic Acid Level 1.6 Calcium Level 9.2 Phosphorus Level 2.9 Magnesium Level 1.8 B-Type Natriuretic Peptide 92254 H Test 01/12/17 05:56 01/12/17 07:00 Bedside Glucose 148 Blood Gas Specimen Source Blood arterial Arterial Blood Date Drawn 01/12/2017 7:04:00 AM Arterial Blood pH (Temp corrected) 7.470 H Arterial Blood pCO2 (Temp correct) 34.5 L Arterial Blood pO2 (Temp corrected) 78.0 L Arterial Blood HCO3 24.5 Arterial Blood Base Excess 1.1 Arterial Blood Oxygen Saturation 95.3 Ivan Test ACCEPTAB Arterial Blood Gas Puncture Site Right Radial Arterial Blood Carboxyhemoglobin 0.1 Arterial Blood Methemoglobin 0.2 Blood Gas A-a O2 Differential 456.2 H Oxyhemoglobin Percent 95.0 Total Hemoglobin 9.7 L Blood Gas Temperature 37.0 Blood Gas Respiration Rate 16.0 Blood Gas Actual Respiration Rate 34 Blood Gas Modality VENT - AC FiO2 80.0 Blood Gas Tidal Volume 450.0 Blood Gas High PEEP Setting 5.0 Blood Gas Notified Whom TM Blood Gas Notified Time 01/12/2017 7:23:50 AM Medications Medications Current Medications Acetaminophen (Tylenol Liquid) 650 mg Q4H PRN GTB PAIN OR TEMP ABOVE 38C; Start 01/07/17 at 13:00 Amiodarone HCl (Cordarone) 200 mg DAILY GTB Last administered on 01/11/17 10:48 ; Admin Dose 200 MG; Start 01/07/17 at 13:00 Diphenhydramine HCl (Benadryl) 25 mg Q6H PRN GTB ITCHING Last administered on 06:23; Admin Dose 25 MG; Start 01/07/17 at 13:00 Multivit/Ca Carb/ B Cmplx/FA/Prenat (Macrina-Brigitte) 1 tab DAILY GTB Last administered on 01/11/17 10:48; Admin Dose 1 TAB; Start 01/08/17 at 09:00 Ondansetron HCl (Zofran Tab) 4 mg Q4H PRN GTB NAUSEA AND/OR VOMITING; Start 01/07/17 at 13:00 Sodium Phosphate (Kphos Neutral) 250 mg BID GTB Last administered on 01/11/17 21:26; Admin Dose 250 MG; Start 01/07/17 at 21:00 Miscellaneous Information 1 ea NOTE XX ; Start 01/07/17 at 23:45 Glucose (Glutose) 15 gm Q15M PRN PO DECREASED GLUCOSE; Start 01/07/17 at 23:45 Glucose (Glutose) 22.5 gm Q15M PRN PO DECREASED GLUCOSE; Start 01/07/17 at 23:45 Dextrose (D50w Syringe) 25 ml Q15M PRN IV DECREASED GLUCOSE; Start 01/07/17 at 23:45 Dextrose (D50w Syringe) 50 ml Q15M PRN IV DECREASED GLUCOSE; Start 01/07/17 at 23:45 Glucagon (Glucagen) 1 mg Q15M PRN IM DECREASED GLUCOSE; Start 01/07/17 at 23:45 Glucose (Glutose) 15 gm Q15M PRN BUCCAL DECREASED GLUCOSE; Start 01/07/17 at 23: 45 Miscellaneous Information (Pending [facility] Order For Wound Care) This patient lopez... PRN PRN XX WOUND CARE; Start 01/08/17 at 07:30 Insulin Aspart NOVOLOG *MILD* ALGORI... Q6 SC Last administered on 01/12/17 06: 03; Admin Dose 1 UNIT; Start 01/08/17 at 12:00 Caspofungin/ Sodium Chloride (Cancidas/NS) 250 ml @ 250 mls/hr Q24H IVPB Last administered on 01/11/17 12:03; Admin Dose 250 MLS/HR; Start 01/09/17 at 12:00 Heparin Sodium (Porcine) (Heparin (5000 Units/0.5 ml)) 5,000 unit BID SC Last administered on 01/11/17 21:38; Admin Dose 5,000 UNIT; Start 01/10/17 at 21:00 Lorazepam (Ativan) 1 mg Q6H PRN PO Agitation Last administered on 01/10/17 21: 08; Admin Dose 1 MG; Start 01/10/17 at 13:30 Linezolid 600 mg 600 mg BID PO Last administered on 01/11/17 21:26; Admin Dose 600 MG; Start 01/10/17 at 15:00 Midazolam HCl 50 ml @ 1 mls/hr TITRATE IV ; Start 01/11/17 at 11:00 Meropenem (Merrem 500 Mg/ 100 ml (Pmx)) 100 ml @ 200 mls/hr Q24H IVPB Last administered on 01/11/17 21:25; Admin Dose 200 MLS/HR; Start 01/11/17 at 14:00 CHARLIE BUSBY DO Jan 12, 2017 08:12
[2017-01-12] MEDS: AMIODARONE 200 MG TAB GTB SCH (08:31)
[2017-01-12] MEDS: MIDODRINE 5 MG TAB NGT SCH ×2 (08:31→16:36)
[2017-01-12] MEDS: LANSOPRAZOLE 30 MG CAP GTB SCH (08:31)
[2017-01-12] MEDS: MULTIVIT/CA CARB/B CMPLX/FA TAB GTB SCH (08:31)
[2017-01-12] MEDS: SOD PHOS MONO/DIBAS 250 MG TAB GTB SCH ×2 (08:31→20:28)
[2017-01-12] MEDS: ZYVOX 600 MG TAB PO SCH ×2 (08:31→20:28)
[2017-01-12] MEDS: LORAZEPAM 0.5 MG TAB PO PRN (08:32)
[2017-01-12] MEDS: HEPARIN 5,000 UNIT/0.5 ML VIAL SC SCH ×2 (08:33→20:41)
[2017-01-12] MEDS ORDERED: morphine 2 MG INJ IV PRN (09:30)
--- NOTE | 2017-01-12 10:54 | CONS ---
Date/Time of Note Date/Time of Note DATE: 01/12/17 TIME: 10:52 Consult Date/Type/Reason Admit Date/Time Jan 07, 2017 at 12:43 Initial Consult Date 01/08/17 Type of Consultation: Pulmonary Ordering Provider: YAYO EDGAR DO Subjective Agitated and tachypneic this morning FiO2 decreased from 100-80% Status post hemodialysis yesterday Currently remains hemodynamically stable Objective Vital Signs Date Time Temp Pulse Resp B/P Pulse Ox O2 Delivery O2 Flow Rate FiO2 01/12/17 09:30 85 8 107/69 97 01/12/17 09:00 Mechanical Ventilator 01/12/17 08:21 80 01/12/17 08:00 97.5 Intake and Output 01/11/17 01/11/17 01/12/17 15:00 23:00 07:00 Intake Total 360 ml 1170 ml 815 ml Output Total 3500 ml Balance 360 ml -2330 ml 815 ml Exam PHYSICAL EXAMINATION GENERAL: Elderly lady on mechanical ventilation via tracheostomy, labored breathing VITAL SIGNS: see below. HEENT: Pupils equal, round, and reactive to light. Tracheostomy site clean and intact. CARDIAC: S1, S2, 1/6 systolic ejection murmur CHEST: Diminished air entry bilaterally. ABDOMEN: Mildly distended. Bowel sounds present no guarding or rebound EXTREMITIES: No cyanosis, clubbing edema +1 NEUROLOGIC: Generalized weakness Results/Medications Result Diagram: 01/12/17 0510 01/12/17 0510 Results 24 hrs Laboratory Tests Test 01/11/17 12:02 01/11/17 17:31 01/12/17 00:06 01/12/17 05:10 Bedside Glucose 81 125 106 White Blood Count 8.5 Red Blood Count 2.60 L Hemoglobin 7.4 L Hematocrit 24.2 L Mean Corpuscular Volume 93.1 Mean Corpuscular Hemoglobin 28.5 L Mean Corpuscular Hemoglobin Concent 30.6 L Red Cell Distribution Width 19.9 H Platelet Count 246 # Mean Platelet Volume 11.1 H Neutrophils % 67.8 Lymphocytes % 15.1 Monocytes % 7.9 Eosinophils % 8.5 H Basophils % 0.2 Nucleated Red Blood Cells % 0.0 Neutrophils # 5.7 Lymphocytes # 1.3 Monocytes # 0.7 Eosinophils # 0.7 H Basophils # 0.0 Nucleated Red Blood Cells # 0.0 Sodium Level 136 Potassium Level 3.6 Chloride Level 98 Carbon Dioxide Level 27 Anion Gap 15 # Blood Urea Nitrogen 34 #H Creatinine 1.85 H Glucose Level 113 Lactic Acid Level 1.6 Calcium Level 9.2 Phosphorus Level 2.9 Magnesium Level 1.8 B-Type Natriuretic Peptide 35213 H Test 01/12/17 05:56 01/12/17 07:00 Bedside Glucose 148 Blood Gas Specimen Source Blood arterial Arterial Blood Date Drawn 01/12/2017 7:04:00 AM Arterial Blood pH (Temp corrected) 7.470 H Arterial Blood pCO2 (Temp correct) 34.5 L Arterial Blood pO2 (Temp corrected) 78.0 L Arterial Blood HCO3 24.5 Arterial Blood Base Excess 1.1 Arterial Blood Oxygen Saturation 95.3 Ivan Test ACCEPTAB Arterial Blood Gas Puncture Site Right Radial Arterial Blood Carboxyhemoglobin 0.1 Arterial Blood Methemoglobin 0.2 Blood Gas A-a O2 Differential 456.2 H Oxyhemoglobin Percent 95.0 Total Hemoglobin 9.7 L Blood Gas Temperature 37.0 Blood Gas Respiration Rate 16.0 Blood Gas Actual Respiration Rate 34 Blood Gas Modality VENT - AC FiO2 80.0 Blood Gas Tidal Volume 450.0 Blood Gas High PEEP Setting 5.0 Blood Gas Notified Whom TM Blood Gas Notified Time 01/12/2017 7:23:50 AM Medications Current Medications Acetaminophen (Tylenol Liquid) 650 mg Q4H PRN GTB PAIN OR TEMP ABOVE 38C; Start 01/07/17 at 13:00 Amiodarone HCl (Cordarone) 200 mg DAILY GTB Last administered on 01/12/17 08:31 ; Admin Dose 200 MG; Start 01/07/17 at 13:00 Diphenhydramine HCl (Benadryl) 25 mg Q6H PRN GTB ITCHING Last administered on 06:23; Admin Dose 25 MG; Start 01/07/17 at 13:00 Multivit/Ca Carb/ B Cmplx/FA/Prenat (Macrina-Brigitte) 1 tab DAILY GTB Last administered on 01/12/17 08:31; Admin Dose 1 TAB; Start 01/08/17 at 09:00 Ondansetron HCl (Zofran Tab) 4 mg Q4H PRN GTB NAUSEA AND/OR VOMITING; Start 01/07/17 at 13:00 Sodium Phosphate (Kphos Neutral) 250 mg BID GTB Last administered on 01/12/17 08:31; Admin Dose 250 MG; Start 01/07/17 at 21:00 Miscellaneous Information 1 ea NOTE XX ; Start 01/07/17 at 23:45 Glucose (Glutose) 15 gm Q15M PRN PO DECREASED GLUCOSE; Start 01/07/17 at 23:45 Glucose (Glutose) 22.5 gm Q15M PRN PO DECREASED GLUCOSE; Start 01/07/17 at 23:45 Dextrose (D50w Syringe) 25 ml Q15M PRN IV DECREASED GLUCOSE; Start 01/07/17 at 23:45 Dextrose (D50w Syringe) 50 ml Q15M PRN IV DECREASED GLUCOSE; Start 01/07/17 at 23:45 Glucagon (Glucagen) 1 mg Q15M PRN IM DECREASED GLUCOSE; Start 01/07/17 at 23:45 Glucose (Glutose) 15 gm Q15M PRN BUCCAL DECREASED GLUCOSE; Start 01/07/17 at 23: 45 Miscellaneous Information (Pending [facility] Order For Wound Care) This patient lopez... PRN PRN XX WOUND CARE; Start 01/08/17 at 07:30 Insulin Aspart NOVOLOG *MILD* ALGORI... Q6 SC Last administered on 01/12/17 06: 03; Admin Dose 1 UNIT; Start 01/08/17 at 12:00 Caspofungin/ Sodium Chloride (Cancidas/NS) 250 ml @ 250 mls/hr Q24H IVPB Last administered on 01/11/17 12:03; Admin Dose 250 MLS/HR; Start 01/09/17 at 12:00 Heparin Sodium (Porcine) (Heparin (5000 Units/0.5 ml)) 5,000 unit BID SC Last administered on 01/12/17 08:33; Admin Dose 5,000 UNIT; Start 01/10/17 at 21:00 Lorazepam (Ativan) 1 mg Q6H PRN PO Agitation Last administered on 01/12/17 08: 32; Admin Dose 1 MG; Start 01/10/17 at 13:30 Linezolid 600 mg 600 mg BID PO Last administered on 01/12/17 08:31; Admin Dose 600 MG; Start 01/10/17 at 15:00 Midazolam HCl 50 ml @ 1 mls/hr TITRATE IV ; Start 01/11/17 at 11:00 Meropenem (Merrem 500 Mg/ 100 ml (Pmx)) 100 ml @ 200 mls/hr Q24H IVPB Last administered on 01/11/17 21:25; Admin Dose 200 MLS/HR; Start 01/11/17 at 14:00 Midodrine (Proamatine) 5 mg BID@,17 NGT Last administered on 01/12/17 08:31; Admin Dose 5 MG; Start 01/12/17 at 09:00 Assessment/Plan Chief Complaint/Hosp Course IMP: 1. Acute on chronic hypoxemic respiratory failure possible component of worsening volume overload in addition to pneumonia 2. UTI 3. VDRF 4. ESRD on HD 5. Anemia likely secondary to underlying renal disease RECS: 1. Decrease FiO2 and PEEP as needed 2. Continue pulmonary toilet 3. CT chest contrast rule out PE 4. continue antibiotics per ID 5. continue Mucomyst 6. Consider transfusion 1 unit packed cells for hemodynamic support Prognosis guarded Critical care time 40 minutes Problems: RHONDA BUENROSTRO MD, [facility] Jan 12, 2017 10:54
--- NOTE | 2017-01-12 12:05 | CONS ---
Date/Time of Note Date/Time of Note DATE: 01/12/17 TIME: 12:03 Assessment/Plan Assessment/Plan Chief Complaint/Hosp Course No acute changes, patient is status post sedation, lethargic but arousable, in no distress, family at bedside Vital signs: Temperature 97.5 pulse 82 respirations 22 blood pressure 97/60 saturation 100 on 80 FiO2 Laboratory data: WBC 8.5 H&H 7.4 and 24.2 platelets 246 Diagnostics: Chest x-ray revealed stable right lower lung infiltrates Indwelling: Tracheostomy, PEG, permacath Antibiotics: Cancidas, Zyvox, Merrem Microbiology: Urine culture growing Dilcia glabrata, wound culture growing enterococcus species Physical examination: Chronically ill-appearing elderly woman who is in no distress. Head atraumatic normocephalic, sclera nonicteric, neck is supple, tracheostomy present. Chest rise symmetrical, breath sounds diminished basis. Heart S1-S2. Abdomen soft, bowel tones present. Extremities no cyanosis Assessment: 1. Acute on chronic Hypoxemic Resp Failure: suspect pneumonia 2. UTI 3. VDRF 4. ESRD on HD 5. Sacral decubitus 6. Allergy: Vancomycin Plan: Hemodynamically stable, continue antibiotics, local wound care, vent management per pulmonary recommendations Discussed with staff Problems: Consultation Date/Type/Reason Admit Date/Time Jan 07, 2017 at 12:43 Initial Consult Date 01/08/17 Type of Consultation: ID Referring Provider: YAYO EDGAR DO Exam/Review of Systems Vital Signs Vitals Vital Signs Date Time Temp Pulse Resp B/P Pulse Ox O2 Delivery O2 Flow Rate FiO2 01/12/17 11:37 83 25 96 80 01/12/17 11:00 97/60 Mechanical Ventilator 01/12/17 08:00 97.5 Intake and Output 01/11/17 01/11/17 01/12/17 15:00 23:00 07:00 Intake Total 360 ml 1170 ml 815 ml Output Total 3500 ml Balance 360 ml -2330 ml 815 ml Results Result Diagram: 01/12/17 0510 01/12/17 0510 Results 24 hrs Laboratory Tests Test 01/11/17 17:31 01/12/17 00:06 01/12/17 05:10 01/12/17 05:56 Bedside Glucose 125 106 148 White Blood Count 8.5 Red Blood Count 2.60 L Hemoglobin 7.4 L Hematocrit 24.2 L Mean Corpuscular Volume 93.1 Mean Corpuscular Hemoglobin 28.5 L Mean Corpuscular Hemoglobin Concent 30.6 L Red Cell Distribution Width 19.9 H Platelet Count 246 # Mean Platelet Volume 11.1 H Neutrophils % 67.8 Lymphocytes % 15.1 Monocytes % 7.9 Eosinophils % 8.5 H Basophils % 0.2 Nucleated Red Blood Cells % 0.0 Neutrophils # 5.7 Lymphocytes # 1.3 Monocytes # 0.7 Eosinophils # 0.7 H Basophils # 0.0 Nucleated Red Blood Cells # 0.0 Sodium Level 136 Potassium Level 3.6 Chloride Level 98 Carbon Dioxide Level 27 Anion Gap 15 # Blood Urea Nitrogen 34 #H Creatinine 1.85 H Glucose Level 113 Lactic Acid Level 1.6 Calcium Level 9.2 Phosphorus Level 2.9 Magnesium Level 1.8 B-Type Natriuretic Peptide 48333 H Test 01/12/17 07:00 01/12/17 11:46 Blood Gas Specimen Source Blood arterial Arterial Blood Date Drawn 01/12/2017 7:04:00 AM Arterial Blood pH (Temp corrected) 7.470 H Arterial Blood pCO2 (Temp correct) 34.5 L Arterial Blood pO2 (Temp corrected) 78.0 L Arterial Blood HCO3 24.5 Arterial Blood Base Excess 1.1 Arterial Blood Oxygen Saturation 95.3 Ivan Test ACCEPTAB Arterial Blood Gas Puncture Site Right Radial Arterial Blood Carboxyhemoglobin 0.1 Arterial Blood Methemoglobin 0.2 Blood Gas A-a O2 Differential 456.2 H Oxyhemoglobin Percent 95.0 Total Hemoglobin 9.7 L Blood Gas Temperature 37.0 Blood Gas Respiration Rate 16.0 Blood Gas Actual Respiration Rate 34 Blood Gas Modality VENT - AC FiO2 80.0 Blood Gas Tidal Volume 450.0 Blood Gas High PEEP Setting 5.0 Blood Gas Notified Whom TM Blood Gas Notified Time 01/12/2017 7:23:50 AM Bedside Glucose 145 Medications Medications Current Medications Acetaminophen (Tylenol Liquid) 650 mg Q4H PRN GTB PAIN OR TEMP ABOVE 38C; Start 01/07/17 at 13:00 Amiodarone HCl (Cordarone) 200 mg DAILY GTB Last administered on 01/12/17t 08:31 ; Admin Dose 200 MG; Start 01/07/17 at 13:00 Diphenhydramine HCl (Benadryl) 25 mg Q6H PRN GTB ITCHING Last administered on 06:23; Admin Dose 25 MG; Start 01/07/17 at 13:00 Multivit/Ca Carb/ B Cmplx/FA/Prenat (Macrina-Brigitte) 1 tab DAILY GTB Last administered on 01/12/17 08:31; Admin Dose 1 TAB; Start 01/08/17 at 09:00 Ondansetron HCl (Zofran Tab) 4 mg Q4H PRN GTB NAUSEA AND/OR VOMITING; Start 01/07/17 at 13:00 Sodium Phosphate (Kphos Neutral) 250 mg BID GTB Last administered on 01/12/17 08:31; Admin Dose 250 MG; Start 01/07/17 at 21:00 Miscellaneous Information 1 ea NOTE XX ; Start 01/07/17 at 23:45 Glucose (Glutose) 15 gm Q15M PRN PO DECREASED GLUCOSE; Start 01/07/17 at 23:45 Glucose (Glutose) 22.5 gm Q15M PRN PO DECREASED GLUCOSE; Start 01/07/17 at 23:45 Dextrose (D50w Syringe) 25 ml Q15M PRN IV DECREASED GLUCOSE; Start 01/07/17 at 23:45 Dextrose (D50w Syringe) 50 ml Q15M PRN IV DECREASED GLUCOSE; Start 01/07/17 at 23:45 Glucagon (Glucagen) 1 mg Q15M PRN IM DECREASED GLUCOSE; Start 01/07/17 at 23:45 Glucose (Glutose) 15 gm Q15M PRN BUCCAL DECREASED GLUCOSE; Start 01/07/17 at 23: 45 Miscellaneous Information [facility] This patient lopez... PRN PRN XX WOUND CARE; Start 01/08/17 at 07:30 Insulin Aspart NOVOLOG *MILD* ALGORI... Q6 SC Last administered on 01/12/17 06: 03; Admin Dose 1 UNIT; Start 01/08/17 at 12:00 Caspofungin/ Sodium Chloride (Cancidas/NS) 250 ml @ 250 mls/hr Q24H IVPB Last administered on 01/11/17 12:03; Admin Dose 250 MLS/HR; Start 01/09/17 at 12:00 Heparin Sodium (Porcine) (Heparin (5000 Units/0.5 ml)) 5,000 unit BID SC Last administered on 01/12/17 08:33; Admin Dose 5,000 UNIT; Start 01/10/17 at 21:00 Lorazepam (Ativan) 1 mg Q6H PRN PO Agitation Last administered on 01/12/17 08: 32; Admin Dose 1 MG; Start 01/10/17 at 13:30 Linezolid 600 mg 600 mg BID PO Last administered on 01/12/17 08:31; Admin Dose 600 MG; Start 01/10/17 at 15:00 Midazolam HCl 50 ml @ 1 mls/hr TITRATE IV ; Start 01/11/17 at 11:00 Meropenem (Merrem 500 Mg/ 100 ml (Pmx)) 100 ml @ 200 mls/hr Q24H IVPB Last administered on 01/11/17 21:25; Admin Dose 200 MLS/HR; Start 01/11/17 at 14:00 Midodrine (Proamatine) 5 mg BID@09,17 NGT Last administered on 01/12/17 08:31; Admin Dose 5 MG; Start 01/12/17 at 09:00 AI FUNEZ NP Jan 12, 2017 12:04
[2017-01-12] MEDS: CASPOFUNGIN 50 MG in SOD CHLORIDE 0.9% 250 ML IVPB SCH (12:14)
[2017-01-12] MEDS: MEROPENEM 500 MG/100 ML (PMX) 100 ML IVPB SCH (14:37)
[2017-01-12] MEDS ORDERED: SOD CHLORIDE 0.9% 100 ML ONE (20:52)
[2017-01-12] MEDS ORDERED: IODIXANOL LOCM 50 ML BTL ONE (20:52)
[2017-01-12] MEDS ORDERED: IODIXANOL LOCM 100 ML BTL ONE (20:52)
--- NOTE | 2017-01-12 22:14 | RADRPT ---
PROCEDURE: CT angiogram chest. CLINICAL INDICATION: Shortness of breath. TECHNIQUE: CT angiogram of the chest was performed utilizing axial images with reconstructions in sagittal and coronal planes following the intravenous administration of 100 cc Visipaque 320 contras t. The administered radiation dose is CTDI 24 mGy, DLP 854 mGy-cm. COMPARISON: No pertinent prior examinations are submitted for comparison. FINDINGS: Pulmonary angiogram: The pulmonary arteries are adequately opacified to the level of the segmental pulmonary artery branches. There is mild to moderate respiratory motion artifact which somewhat orozco its evaluation of the lobar and segmental pulmonary artery branches. There is no evidence of pulmon katya embolus. Aortogram: There is no evidence of aortic dissection or aneurysm. Major branches of the aorta are patent. Chest: There are small right and trace left pleural effusions with some associated atelectasis. Some mild diffuse ground-glass opacities present throughout both lungs along with mild diffuse interstitial op acities. A tracheostomy tube is present. The tracheobronchial tree is otherwise unremarkable. There is moderate to marked cardiomegaly. Coronary artery calcifications are noted. No pericardial effusion is seen. There is extensive adenopathy throughout the prevascular, paratracheal, and subcarinal regions. There is a large, partially visualized 4.7 cm nodule within the left thyroid lobe. Visualized Upper abdomen: Stones are noted within the gallbladder. A percutaneous gastrostomy tube is seen with tip in the stomach. A small exophytic left renal cyst is noted. Osseous structures: Compression deformities are noted within the T4, T6, T7 and T8 levels with evide nce of prior kyphoplasty at T7. No definite acute fracture is seen. Chronic right anterior rib fra ctures are noted. IMPRESSION: No evidence of pulmonary embolus. Some limited evaluation of the lobar and segmental pulmonary arter y branches due to respiratory motion artifact. Likely congestive changes including pleural effusions as well as likely pulmonary and interstitial e yamini. Extensive mediastinal adenopathy. Large left thyroid nodule which is partially seen. Likely chronic compression fractures of several mid thoracic vertebral bodies. Cholelithiasis. RPTAT: HIKT .Uriel Krishnan MD, MD Date Time Electronically viewed and signed by .Uriel Krishnan MD, MD on 01/12/2017 22:13 .T/
[2017-01-13] VITALS (54 sets, daily range): BP systolic 81–138; BP diastolic 45–117; PULSE 71–85; RESP 17–30
[2017-01-13] MEDS: ALBUTEROL 18 GM INHALER INH SCH ×4 (01:40→19:51)
[2017-01-13] MEDS: ACETYLCYSTEINE 20% 4 ML VIAL NEB SCH ×4 (01:40→19:51)
[2017-01-13] MEDS: IPRATROPIUM (HFA) 12.9 GM INHALER INH SCH ×4 (01:40→19:52)
[2017-01-13] MEDS: INSULIN ASPART [NOVOLOG] 3 ML PEN SC SCH ×4 (06:00→17:10)
[2017-01-13 06:22] LABS: ADD SCAN DIFF NO
[2017-01-13 06:40] LABS: BASOPHILS % 0.2 % (0.0-2.0); EOSINOPHILS # 0.8 10^3/ul (0.0-0.5); EOSINOPHILS % 8.1 % (0.0-7.0); HEMATOCRIT 25.3 % (37.0-47.0); HEMOGLOBIN 7.9 g/dl (12.0-16.0); LYMPHOCYTES # 1.6 10^3/ul (0.8-2.9); LYMPHOCYTES % 16.7 % (15.0-51.0); MEAN CORPUSCULAR HEMOGLOBIN 28.8 pg (29.0-33.0); MEAN CORPUSCULAR HGB CONC 31.2 g/dl (32.0-37.0); MEAN CORPUSCULAR VOLUME 92.3 fl (82.0-101.0); MEAN PLATELET VOLUME 11.6 fl (7.4-10.4); MONOCYTE # 0.8 10^3/ul (0.3-0.9); NEUTROPHIL # 6.4 10^3/ul (1.6-7.5); NEUTROPHILS % 66.7 % (39.0-77.0); PLATELET COUNT 274 10^3/UL (140-415); RED BLOOD COUNT 2.74 10^6/ul (4.20-5.40); WHITE BLOOD COUNT 9.6 10^3/ul (4.8-10.8)
[2017-01-13 06:50] LABS: CALCIUM 9.5 mg/dl (8.4-10.2); CREATININE 2.47 mg/dl (0.44-1.00); MAGNESIUM 1.7 mg/dl (1.7-2.5); PHOSPHORUS 4.6 mg/dl (2.5-4.9); POTASSIUM 3.3 mmol/L (3.5-5.1)
--- NOTE | 2017-01-13 07:40 | RADRPT ---
PROCEDURE: XR Chest. CLINICAL INDICATION: Respiratory failure TECHNIQUE: An AP view of the chest was obtained. COMPARISON: Chest x-ray dated 01/12/2017 FINDINGS: A tracheostomy tube is in place. There is a left subclavian dual chamber pacemaker. There is a right chest Perma-Cath with tip near the cavoatrial junction. Lung volumes are low with diffuse bilateral interstitial opacities. No pleural effusion or pneumot horax is seen. The cardiomediastinal silhouette is within normal limits for size. Calcifications ar e seen within the aortic arch. The osseous structures demonstrate senescent changes. IMPRESSION: 1. Low lung volumes with findings suggestive of interstitial edema. No significant interval change. 2. Aortic atherosclerosis. 3. Tubes and lines, as described above. RPTAT: HH .Kati Roach MD, MD Date Time Electronically viewed and signed by .Kati Roach MD, on 01/13/2017 07:39 .G/
--- NOTE | 2017-01-13 08:22 | PN ---
Date/Time of Note Date/Time of Note DATE: 01/13/17 TIME: 08:21 Assessment/Plan VTE Prophylaxis VTE Prophylaxis Intervention: SCD's, other Lines/Catheters IV Catheter Type (from Nrs): Peripheral IV Urinary Cath still in place: No Assessment/Plan Chief Complaint/Hosp Course 1. acute on chronic hypoxemic hypercapnic respiratory failure: s/p trach: vent dep. now with severe hypoxemia 2. Pafib; currently remains in NSR 3. HX Sick sinus syndrome: s/p PPM: pacemaker was interrogated and personally reviewed on 01/08/17 with normal functioning pacemaker. 4. pneumonia 5. ESRD on HD 6. HX HTN: stable now 7. severe anemia: s/p multiple transfusion 8. severe hypoxemia cont vent support not anticoagulated due to concerns about bleeding and severe anemia. abx as per IM/ ID and pulm team CONT HD HR has remained stable. BP is currently stable but will monitor closely correct lytes prn transfusion prn cont ICU care more than 37 minutes of critical care time was spent in management and treatment of this critically ill pt, excluding any procedures. Problems: Subjective 24 Hr Interval Summary Free Text/Dictation d/w staff and rhythm was reviewed. pt remains in NSR. no afib EVENTS noted. pt still with severe hypoxemia and on 75% O2 now despite aggressive HD. pt with no chest pain. pt is still on vent OBJECTIVE. General: s/p trach on vent. in mild distress HEENT: NC/AT. pupils are equal. round. NECK: s/p trach. no stridor. CV: RRR. systolic murmur; no gallop or rubs. PULM: no wheezing but + rhonchi anteriorly GI: SOFT, NT, ND, no rebound or guarding . s/p PEG Extremity: trace B/L LE edema. no clubbing. neuro: awake and alert responds appropriately Psych: anxious but pleasant rectal: deferred Derm: + diffuse echymosis Exam/Review of Systems Vital Signs Vitals Vital Signs Date Time Temp Pulse Resp B/P Pulse Ox O2 Delivery O2 Flow Rate FiO2 01/13/17 07:00 81 24 138/117 100 Mechanical Ventilator Trach Collar 01/13/17 05:46 75 01/13/17 00:00 97.5 Intake and Output 01/12/17 01/12/17 01/13/17 15:00 23:00 07:00 Intake Total 580 ml 300 ml Balance 580 ml 300 ml Results Result Diagram: 01/13/17 0555 01/13/17 0555 Results 24 hrs Laboratory Tests Test 01/12/17 11:46 01/12/17 17:24 01/13/17 00:14 01/13/17 05:55 Bedside Glucose 145 130 116 White Blood Count 9.6 Red Blood Count 2.74 L Hemoglobin 7.9 L Hematocrit 25.3 L Mean Corpuscular Volume 92.3 Mean Corpuscular Hemoglobin 28.8 L Mean Corpuscular Hemoglobin Concent 31.2 L Red Cell Distribution Width 20.0 H Platelet Count 274 Mean Platelet Volume 11.6 H Neutrophils % 66.7 Lymphocytes % 16.7 Monocytes % 8.0 Eosinophils % 8.1 H Basophils % 0.2 Nucleated Red Blood Cells % 0.0 Neutrophils # 6.4 Lymphocytes # 1.6 Monocytes # 0.8 Eosinophils # 0.8 H Basophils # 0.0 Nucleated Red Blood Cells # 0.0 Sodium Level 134 L Potassium Level 3.3 L Chloride Level 96 L Carbon Dioxide Level 23 Anion Gap 18 H Blood Urea Nitrogen 56 H Creatinine 2.47 H Glucose Level 114 Calcium Level 9.5 Phosphorus Level 4.6 Magnesium Level 1.7 Test 01/13/17 05:58 Bedside Glucose 122 Medications Medications Current Medications Acetaminophen (Tylenol Liquid) 650 mg Q4H PRN GTB PAIN OR TEMP ABOVE 38C; Start 01/07/17 at 13:00 Amiodarone HCl (Cordarone) 200 mg DAILY GTB Last administered on 01/12/17 08:31 ; Admin Dose 200 MG; Start 01/07/17 at 13:00 Diphenhydramine HCl (Benadryl) 25 mg Q6H PRN GTB ITCHING Last administered on 06:23; Admin Dose 25 MG; Start 01/07/17 at 13:00 Multivit/Ca Carb/ B Cmplx/FA/Prenat (Macrina-Brigitte) 1 tab DAILY GTB Last administered on 01/12/17 08:31; Admin Dose 1 TAB; Start 01/08/17 at 09:00 Ondansetron HCl (Zofran Tab) 4 mg Q4H PRN GTB NAUSEA AND/OR VOMITING; Start 01/07/17 at 13:00 Sodium Phosphate (Kphos Neutral) 250 mg BID GTB Last administered on 01/12/17 20:28; Admin Dose 250 MG; Start 01/07/17 at 21:00 Miscellaneous Information 1 ea NOTE XX ; Start 01/07/17 at 23:45 Glucose (Glutose) 15 gm Q15M PRN PO DECREASED GLUCOSE; Start 01/07/17 at 23:45 Glucose (Glutose) 22.5 gm Q15M PRN PO DECREASED GLUCOSE; Start 01/07/17 at 23:45 Dextrose (D50w Syringe) 25 ml Q15M PRN IV DECREASED GLUCOSE; Start 01/07/17 at 23:45 Dextrose (D50w Syringe) 50 ml Q15M PRN IV DECREASED GLUCOSE; Start 01/07/17 at 23:45 Glucagon (Glucagen) 1 mg Q15M PRN IM DECREASED GLUCOSE; Start 01/07/17 at 23:45 Glucose (Glutose) 15 gm Q15M PRN BUCCAL DECREASED GLUCOSE; Start 01/07/17 at 23: 45 Miscellaneous Information [facility] This patient lopez... PRN PRN XX WOUND CARE; Start 01/08/17 at 07:30 Insulin Aspart NOVOLOG *MILD* ALGORI... Q6 SC Last administered on 01/12/17 12: 14; Admin Dose 1 UNIT; Start 01/08/17 at 12:00 Caspofungin/ Sodium Chloride (Cancidas/NS) 250 ml @ 250 mls/hr Q24H IVPB Last administered on 01/12/17 12:14; Admin Dose 250 MLS/HR; Start 01/09/17 at 12:00 Heparin Sodium (Porcine) (Heparin (5000 Units/0.5 ml)) 5,000 unit BID SC Last administered on 01/12/17 20:41; Admin Dose 5,000 UNIT; Start 01/10/17 at 21:00 Lorazepam (Ativan) 1 mg Q6H PRN PO Agitation Last administered on 01/12/17 08: 32; Admin Dose 1 MG; Start 01/10/17 at 13:30 Linezolid 600 mg 600 mg BID PO Last administered on 01/12/17 20:28; Admin Dose 600 MG; Start 01/10/17 at 15:00 Midazolam HCl 50 ml @ 1 mls/hr TITRATE IV ; Start 01/11/17 at 11:00 Meropenem (Merrem 500 Mg/ 100 ml (Pmx)) 100 ml @ 200 mls/hr Q24H IVPB Last administered on 01/12/17 14:37; Admin Dose 200 MLS/HR; Start 01/11/17 at 14:00 Midodrine (Proamatine) 5 mg BID@09,17 NGT Last administered on 01/12/17 16:36; Admin Dose 5 MG; Start 01/12/17 at 09:00 KIAH GARCIA MD Jan 13, 2017 08:22
--- NOTE | 2017-01-13 08:36 | PN ---
Date/Time of Note Date/Time of Note DATE: 01/13/17 TIME: 08:32 Assessment/Plan VTE Prophylaxis VTE Prophylaxis Intervention: other Lines/Catheters IV [facility] Type ([facility] Peripheral IV Urinary Cath still in place: No Assessment/Plan Chief Complaint/Hosp Course 1. hypoxemic respiratory failure. etiology likely multifactorial, chf, ? pna, mucus plug, questionable PE -Anxiety may be a contributing factor -Consider CT angiogram. Will defer to pulmonary -Vent settings have been reviewed. FiO2 levels remain high but coming down slowly -Patient started on Lexapro and Ativan -Monitor 2. Possible sepsis. Secondary to UTI, questionable pneumonia. Urinalysis positive for pyuria. Urine culture is positive yyeast. chest x-ray suggests possible infiltrate - Continue antifungal therapy. Follow-up with infectious disease 3. Encephalopathy, acute. Etiology is likely secondary to toxic metabolic -Mental status appears to be improving continue to monitor 4. Dysphagia, status post percutaneous endoscopic gastrostomy. -Continue tube feeding. 5. ESRD -HD today 7. Atrial fibrillation, currently rate controlled. Continue medical management. -Off anticoagulation secondary to previous bleed - Continue beta louise. We will follow up with cardiology. 8. Anemia. Continue to monitor hemoglobin and hematocrit levels. Continue Epogen 9. Mineral bone disease. Continue to monitor calcium and phosphorus levels. 10. History of breast cancer status post bilateral mastectomy. 11. Congestive heart failure. Continue medical management. 12. Diabetes. Continue Accu-Cheks and sliding scale. 13. History of Clostridium difficile colitis, status post treatment. 14. Gastrointestinal and deep venous thrombosis prophylaxis. Continue Protonix , SCD, heparin 15. Hypokalemia replete with potassium chloride 16. Anxiety disorder. Will start patient on Lexapro Please note I spent over 35 minutes critical care time with this patient Problems: Subjective 24 Hr Interval Summary Free Text/Dictation Patient remains critical but stable. Remains on high FiO2 levels. Patient's pending hemodialysis today. Exam/Review of Systems Vital Signs Vitals Vital Signs Date Time Temp Pulse Resp B/P Pulse Ox O2 Delivery O2 Flow Rate FiO2 01/13/17 07:00 81 24 138/117 100 Mechanical Ventilator Trach Collar 01/13/17 05:46 75 01/13/17 00:00 97.5 Intake and Output 01/12/17 01/12/17 01/13/17 15:00 23:00 07:00 Intake Total 580 ml 300 ml Balance 580 ml 300 ml Exam HEENT: Head is normocephalic. NECK: Supple. HEART: Irregular LUNGS: Show diminished breath sounds at base. ABDOMEN: Soft, nontender to palpation without rebound or guarding. EXTREMITIES: Negative for clubbing, cyanosis. Positive edema, DERMATOLOGIC: No rashes. MUSCULOSKELETAL: No joint effusions, NEUROLOGIC: No change in exam. Results Result Diagram: 01/13/17 0555 01/13/1755 Results 24 hrs Laboratory Tests Test 01/12/17 11:46 01/12/17 17:24 01/13/17 00:14 01/13/17 05:55 Bedside Glucose 145 130 116 White Blood Count 9.6 Red Blood Count 2.74 L Hemoglobin 7.9 L Hematocrit 25.3 L Mean Corpuscular Volume 92.3 Mean Corpuscular Hemoglobin 28.8 L Mean Corpuscular Hemoglobin Concent 31.2 L Red Cell Distribution Width 20.0 H Platelet Count 274 Mean Platelet Volume 11.6 H Neutrophils % 66.7 Lymphocytes % 16.7 Monocytes % 8.0 Eosinophils % 8.1 H Basophils % 0.2 Nucleated Red Blood Cells % 0.0 Neutrophils # 6.4 Lymphocytes # 1.6 Monocytes # 0.8 Eosinophils # 0.8 H Basophils # 0.0 Nucleated Red Blood Cells # 0.0 Sodium Level 134 L Potassium Level 3.3 L Chloride Level 96 L Carbon Dioxide Level 23 Anion Gap 18 H Blood Urea Nitrogen 56 H Creatinine 2.47 H Glucose Level 114 Calcium Level 9.5 Phosphorus Level 4.6 Magnesium Level 1.7 Test 01/13/17 05:58 Bedside Glucose 122 Medications Medications Current Medications Acetaminophen (Tylenol Liquid) 650 mg Q4H PRN GTB PAIN OR TEMP ABOVE 38C; Start 01/07/17 at 13:00 Amiodarone HCl (Cordarone) 200 mg DAILY GTB Last administered on 01/12/17 08:31 ; Admin Dose 200 MG; Start 01/07/17 at 13:00 Diphenhydramine HCl (Benadryl) 25 mg Q6H PRN GTB ITCHING Last administered on 06:23; Admin Dose 25 MG; Start 01/07/17 at 13:00 Multivit/Ca Carb/ B Cmplx/FA/Prenat (Macrina-Brigitte) 1 tab DAILY GTB Last administered on 01/12/17 08:31; Admin Dose 1 TAB; Start 01/08/17 at 09:00 Ondansetron HCl (Zofran Tab) 4 mg Q4H PRN GTB NAUSEA AND/OR VOMITING; Start 01/07/17 at 13:00 Sodium Phosphate (Kphos Neutral) 250 mg BID GTB Last administered on 01/12/17 20:28; Admin Dose 250 MG; Start 01/07/17 at 21:00 Miscellaneous Information 1 ea NOTE XX ; Start 01/07/17 at 23:45 Glucose (Glutose) 15 gm Q15M PRN PO DECREASED GLUCOSE; Start 01/07/17 at 23:45 Glucose (Glutose) 22.5 gm Q15M PRN PO DECREASED GLUCOSE; Start 01/07/17 at 23:45 Dextrose (D50w Syringe) 25 ml Q15M PRN IV DECREASED GLUCOSE; Start 01/07/17 at 23:45 Dextrose (D50w Syringe) 50 ml Q15M PRN IV DECREASED GLUCOSE; Start 01/07/17 at 23:45 Glucagon (Glucagen) 1 mg Q15M PRN IM DECREASED GLUCOSE; Start 01/07/17 at 23:45 Glucose (Glutose) 15 gm Q15M PRN BUCCAL DECREASED GLUCOSE; Start 01/07/17 at 23: 45 Miscellaneous Information (Pending [facility] Order For Wound Care) This patient lopez... PRN PRN XX WOUND CARE; Start 01/08/17 at 07:30 Insulin Aspart NOVOLOG *MILD* ALGORI... Q6 SC Last administered on 01/12/17 12: 14; Admin Dose 1 UNIT; Start 01/08/17 at 12:00 Caspofungin/ Sodium Chloride (Cancidas/NS) 250 ml @ 250 mls/hr Q24H IVPB Last administered on 01/12/17 12:14; Admin Dose 250 MLS/HR; Start 01/09/17 at 12:00 Heparin Sodium (Porcine) (Heparin (5000 Units/0.5 ml)) 5,000 unit BID SC Last administered on 01/12/17 20:41; Admin Dose 5,000 UNIT; Start 01/10/17 at 21:00 Lorazepam (Ativan) 1 mg Q6H PRN PO Agitation Last administered on 01/12/17 08: 32; Admin Dose 1 MG; Start 01/10/17 at 13:30 Linezolid 600 mg 600 mg BID PO Last administered on 01/12/17 20:28; Admin Dose 600 MG; Start 01/10/17 at 15:00 Midazolam HCl 50 ml @ 1 mls/hr TITRATE IV ; Start 01/11/17 at 11:00 Meropenem (Merrem 500 Mg/ 100 ml (Pmx)) 100 ml @ 200 mls/hr Q24H IVPB Last administered on 01/12/17 14:37; Admin Dose 200 MLS/HR; Start 01/11/17 at 14:00 Midodrine (Proamatine) 5 mg BID@09,17 NGT Last administered on 01/12/17 16:36; Admin Dose 5 MG; Start 01/12/17 at 09:00 CHARLIE BUSBY DO Jan 13, 2017 08:36
[2017-01-13] MEDS ORDERED: LORAZEPAM 0.5 MG TAB PO SCH (09:00)
[2017-01-13] MEDS: LANSOPRAZOLE 30 MG CAP GTB SCH (09:20)
[2017-01-13] MEDS: ESCITALOPRAM 10 MG TAB GTB SCH (09:21)
[2017-01-13] MEDS: ZYVOX 600 MG TAB PO SCH ×2 (09:21→21:22)
[2017-01-13] MEDS: MULTIVIT/CA CARB/B CMPLX/FA TAB GTB SCH (09:21)
[2017-01-13] MEDS: SOD PHOS MONO/DIBAS 250 MG TAB GTB SCH ×2 (09:21→21:23)
[2017-01-13] MEDS: AMIODARONE 200 MG TAB GTB SCH (09:22)
[2017-01-13] MEDS: HEPARIN 5,000 UNIT/0.5 ML VIAL SC SCH ×2 (09:23→21:36)
[2017-01-13] MEDS: MIDODRINE 5 MG TAB NGT SCH ×2 (09:35→17:10)
[2017-01-13] MEDS: EPOETIN 4000 UNITS/1 ML INJ (ESRD) SC SCH (09:36)
--- NOTE | 2017-01-13 11:57 | CONS ---
Date/Time of Note Date/Time of Note DATE: 01/13/17 TIME: 11:55 Consult Date/Type/Reason Admit Date/Time Jan 07, 2017 at 12:43 Initial Consult Date 01/08/17 Type of Consultation: Pulmonary Ordering Provider: YAYO EDGAR DO Subjective Patient given small dose of Ativan this morning appears more comfortable. No labored breathing continues mechanical ventilation with decreasing FiO2 Objective Vital Signs Date Time Temp Pulse Resp B/P Pulse Ox O2 Delivery O2 Flow Rate FiO2 01/13/17 11:48 98.5 79 23 90/61 97 Mechanical Ventilator 01/13/17 08:00 75 Intake and Output 01/12/17 01/12/17 01/13/17 15:00 23:00 07:00 Intake Total 580 ml 300 ml 50 ml Balance 580 ml 300 ml 50 ml Exam PHYSICAL EXAMINATION GENERAL: Elderly lady on mechanical ventilation appears comfortable at rest VITAL SIGNS: see below. HEENT: Pupils equal, round, and reactive to light. Tracheostomy site clean and intact. CARDIAC: S1, S2, 1/6 systolic ejection murmur CHEST: Diminished air entry bilaterally. ABDOMEN: Mildly distended. Bowel sounds present no guarding or rebound EXTREMITIES: No cyanosis, clubbing edema +1 NEUROLOGIC: Generalized weakness Results/Medications Result Diagram: 01/13/17 0555 01/13/17 0555 Results 24 hrs Laboratory Tests Test 01/12/17 17:24 01/13/17 00:14 01/13/17 05:55 01/13/17 05:58 Bedside Glucose 130 116 122 White Blood Count 9.6 Red Blood Count 2.74 L Hemoglobin 7.9 L Hematocrit 25.3 L Mean Corpuscular Volume 92.3 Mean Corpuscular Hemoglobin 28.8 L Mean Corpuscular Hemoglobin Concent 31.2 L Red Cell Distribution Width 20.0 H Platelet Count 274 Mean Platelet Volume 11.6 H Neutrophils % 66.7 Lymphocytes % 16.7 Monocytes % 8.0 Eosinophils % 8.1 H Basophils % 0.2 Nucleated Red Blood Cells % 0.0 Neutrophils # 6.4 Lymphocytes # 1.6 Monocytes # 0.8 Eosinophils # 0.8 H Basophils # 0.0 Nucleated Red Blood Cells # 0.0 Sodium Level 134 L Potassium Level 3.3 L Chloride Level 96 L Carbon Dioxide Level 23 Anion Gap 18 H Blood Urea Nitrogen 56 H Creatinine 2.47 H Glucose Level 114 Calcium Level 9.5 Phosphorus Level 4.6 Magnesium Level 1.7 Medications Current Medications Acetaminophen (Tylenol Liquid) 650 mg Q4H PRN GTB PAIN OR TEMP ABOVE 38C; Start 01/07/17 at 13:00 Amiodarone HCl (Cordarone) 200 mg DAILY GTB Last administered on 01/13/17 09:22 ; Admin Dose 200 MG; Start 01/07/17 at 13:00 Diphenhydramine HCl (Benadryl) 25 mg Q6H PRN GTB ITCHING Last administered on 06:23; Admin Dose 25 MG; Start 01/07/17 at 13:00 Multivit/Ca Carb/ B Cmplx/FA/Prenat (Macrina-Brigitte) 1 tab DAILY GTB Last administered on 01/13/17 09:21; Admin Dose 1 TAB; Start 01/08/17 at 09:00 Ondansetron HCl (Zofran Tab) 4 mg Q4H PRN GTB NAUSEA AND/OR VOMITING; Start 01/07/17 at 13:00 Sodium Phosphate (Kphos Neutral) 250 mg BID GTB Last administered on 01/13/17 09:21; Admin Dose 250 MG; Start 01/07/17 at 21:00 Miscellaneous Information 1 ea NOTE XX ; Start 01/07/17 at 23:45 Glucose (Glutose) 15 gm Q15M PRN PO DECREASED GLUCOSE; Start 01/07/17 at 23:45 Glucose (Glutose) 22.5 gm Q15M PRN PO DECREASED GLUCOSE; Start 01/07/17 at 23:45 Dextrose (D50w Syringe) 25 ml Q15M PRN IV DECREASED GLUCOSE; Start 01/07/17 at 23:45 Dextrose (D50w Syringe) 50 ml Q15M PRN IV DECREASED GLUCOSE; Start 01/07/17 at 23:45 Glucagon (Glucagen) 1 mg Q15M PRN IM DECREASED GLUCOSE; Start 01/07/17 at 23:45 Glucose (Glutose) 15 gm Q15M PRN BUCCAL DECREASED GLUCOSE; Start 01/07/17 at 23: 45 Miscellaneous Information (Pending [facility] Order For Wound Care) This patient lopez... PRN PRN XX WOUND CARE; Start 01/08/17 at 07:30 Insulin Aspart NOVOLOG *MILD* ALGORI... Q6 SC Last administered on 01/12/17 12: 14; Admin Dose 1 UNIT; Start 01/08/17 at 12:00 Caspofungin/ Sodium Chloride (Cancidas/NS) 250 ml @ 250 mls/hr Q24H IVPB Last administered on 01/12/17 12:14; Admin Dose 250 MLS/HR; Start 01/09/17 at 12:00 Heparin Sodium (Porcine) (Heparin (5000 Units/0.5 ml)) 5,000 unit BID SC Last administered on 01/13/17 09:23; Admin Dose 5,000 UNIT; Start 01/10/17 at 21:00 Lorazepam (Ativan) 1 mg Q6H PRN PO Agitation Last administered on 01/12/17 08: 32; Admin Dose 1 MG; Start 01/10/17 at 13:30 Linezolid 600 mg 600 mg BID PO Last administered on 01/13/17 09:21; Admin Dose 600 MG; Start 01/10/17 at 15:00 Midazolam HCl 50 ml @ 1 mls/hr TITRATE IV ; Start 01/11/17 at 11:00 Meropenem (Merrem 500 Mg/ 100 ml (Pmx)) 100 ml @ 200 mls/hr Q24H IVPB Last administered on 01/12/17 14:37; Admin Dose 200 MLS/HR; Start 01/11/17 at 14:00 Midodrine (Proamatine) 5 mg BID@09,17 NGT Last administered on 01/13/17 09:35; Admin Dose 5 MG; Start 01/12/17 at 09:00 Escitalopram Oxalate (Lexapro) 10 mg DAILY GTB Last administered on 01/13/17 09 :21; Admin Dose 10 MG; Start 01/13/17 at 09:00 Lorazepam (Ativan) 0.5 mg BID PO Last administered on 01/13/17 09:20; Admin Dose 0.5 MG; Start 01/13/17 at 09:00 Assessment/Plan Chief Complaint/Hosp Course IMP: 1. Acute on chronic hypoxemic respiratory failure possible component of worsening volume overload in addition to pneumonia 2. UTI 3. VDRF 4. ESRD on HD status post hemodialysis today with volume removal 5. Anemia likely secondary to underlying renal disease RECS: 1. Decrease FiO2 and PEEP as needed 2. Continue pulmonary toilet 3. Continue hemodialysis with volume removal 4. continue antibiotics per ID 5. continue Mucomyst 6. Continue Ativan and Lexapro. Prognosis guarded, discussed with patient's son at bedside. Critical care time 40 minutes Problems: RHONDA BUENROSTRO MD, [facility] Jan 13, 2017 11:56
[2017-01-13] MEDS: CASPOFUNGIN 50 MG in SOD CHLORIDE 0.9% 250 ML IVPB SCH (12:06)
--- NOTE | 2017-01-13 12:39 | CONS ---
Date/Time of Note Date/Time of Note DATE: 01/13/17 TIME: 12:37 Assessment/Plan Assessment/Plan Chief Complaint/Hosp Course No acute changes. Patient is lying comfortably in bed. No fevers overnight Vital signs: Temperature 98.5 pulse 79 respirations 20 blood pressure 90/61 saturation 97% Laboratory data: WBC 9.6 H&H 7.9 25.3 platelets 274 Diagnostics: Chest x-ray this morning revealed no significant interval change Indwelling's: Trach, PEG, permanent pacemaker, right chest permacath Antibiotics: Cancidas, Zyvox, Merrem Microbiology: Urine culture growing Dilcia glabrata, wound culture growing enterococcus and coag negative staph species Allergy: Erythromycin, vancomycin Physical examination: Chronically ill-appearing elderly woman who is in no distress. Head atraumatic normocephalic, sclera nonicteric, neck is supple, tracheostomy present. Chest rise symmetrical, breath sounds diminished basis. Heart S1-S2. Abdomen soft, bowel tones present. Extremities no cyanosis Assessment: 1. Acute on chronic Hypoxemic Resp Failure, possible pneumonia 2. UTI 3. VDRF 4. ESRD on HD 5. Sacral decubitus Plan: Clinically unchanged, hemodynamically stable, continue antibiotics, local wound care, vent management per pulmonary recommendations Discussed with staff Problems: Consultation Date/Type/Reason Admit Date/Time Jan 07, 2017 at 12:43 Initial Consult Date 01/08/17 Type of Consultation: ID Referring Provider: YAYO EDGAR DO Exam/Review of Systems Vital Signs Vitals Vital Signs Date Time Temp Pulse Resp B/P Pulse Ox O2 Delivery O2 Flow Rate FiO2 01/13/17 11:48 98.5 79 23 90/61 97 Mechanical Ventilator 01/13/17 08:00 75 Intake and Output 01/12/17 01/12/17 01/13/17 15:00 23:00 07:00 Intake Total 580 ml 300 ml 50 ml Balance 580 ml 300 ml 50 ml Results Result Diagram: 01/13/17 0555 01/13/17 0555 Results 24 hrs Laboratory Tests Test 01/12/17 17:24 01/13/17 00:14 01/13/17 05:55 01/13/17 05:58 Bedside Glucose 130 116 122 White Blood Count 9.6 Red Blood Count 2.74 L Hemoglobin 7.9 L Hematocrit 25.3 L Mean Corpuscular Volume 92.3 Mean Corpuscular Hemoglobin 28.8 L Mean Corpuscular Hemoglobin Concent 31.2 L Red Cell Distribution Width 20.0 H Platelet Count 274 Mean Platelet Volume 11.6 H Neutrophils % 66.7 Lymphocytes % 16.7 Monocytes % 8.0 Eosinophils % 8.1 H Basophils % 0.2 Nucleated Red Blood Cells % 0.0 Neutrophils # 6.4 Lymphocytes # 1.6 Monocytes # 0.8 Eosinophils # 0.8 H Basophils # 0.0 Nucleated Red Blood Cells # 0.0 Sodium Level 134 L Potassium Level 3.3 L Chloride Level 96 L Carbon Dioxide Level 23 Anion Gap 18 H Blood Urea Nitrogen 56 H Creatinine 2.47 H Glucose Level 114 Calcium Level 9.5 Phosphorus Level 4.6 Magnesium Level 1.7 Test 01/13/17 12:02 Bedside Glucose 144 Medications Medications Current Medications Acetaminophen (Tylenol Liquid) 650 mg Q4H PRN GTB PAIN OR TEMP ABOVE 38C; Start 01/07/17 at 13:00 Amiodarone HCl (Cordarone) 200 mg DAILY GTB Last administered on 01/13/17 09:22 ; Admin Dose 200 MG; Start 01/07/17 at 13:00 Diphenhydramine HCl (Benadryl) 25 mg Q6H PRN GTB ITCHING Last administered on 06:23; Admin Dose 25 MG; Start 01/07/17 at 13:00 Multivit/Ca Carb/ B Cmplx/FA/Prenat (Macrina-Brigitte) 1 tab DAILY GTB Last administered on 01/13/17 09:21; Admin Dose 1 TAB; Start 01/08/17 at 09:00 Ondansetron HCl (Zofran Tab) 4 mg Q4H PRN GTB NAUSEA AND/OR VOMITING; Start 01/07/17 at 13:00 Sodium Phosphate (Kphos Neutral) 250 mg BID GTB Last administered on 01/13/17 09:21; Admin Dose 250 MG; Start 01/07/17 at 21:00 Miscellaneous Information 1 ea NOTE XX ; Start 01/07/17 at 23:45 Glucose (Glutose) 15 gm Q15M PRN PO DECREASED GLUCOSE; Start 01/07/17 at 23:45 Glucose (Glutose) 22.5 gm Q15M PRN PO DECREASED GLUCOSE; Start 01/07/17 at 23:45 Dextrose (D50w Syringe) 25 ml Q15M PRN IV DECREASED GLUCOSE; Start 01/07/17 at 23:45 Dextrose (D50w Syringe) 50 ml Q15M PRN IV DECREASED GLUCOSE; Start 01/07/17 at 23:45 Glucagon (Glucagen) 1 mg Q15M PRN IM DECREASED GLUCOSE; Start 01/07/17 at 23:45 Glucose (Glutose) 15 gm Q15M PRN BUCCAL DECREASED GLUCOSE; Start 01/07/17 at 23: 45 [facility]isc[facility] This patient lopez... PRN PRN XX WOUND CARE; Start 01/08/17 at 07:30 Insulin Aspart NOVOLOG *MILD* ALGORI... Q6 SC Last administered on 01/13/17 12: 05; Admin Dose 1 UNIT; Start 01/08/17 at 12:00 Caspofungin/ Sodium Chloride (Cancidas/NS) 250 ml @ 250 mls/hr Q24H IVPB Last administered on 01/13/17 12:06; Admin Dose 250 MLS/HR; Start 01/09/17 at 12:00 Heparin Sodium (Porcine) (Heparin (5000 Units/0.5 ml)) 5,000 unit BID SC Last administered on 01/13/17 09:23; Admin Dose 5,000 UNIT; Start 01/10/17 at 21:00 Lorazepam (Ativan) 1 mg Q6H PRN PO Agitation Last administered on 01/12/17 08: 32; Admin Dose 1 MG; Start 01/10/17 at 13:30 Linezolid 600 mg 600 mg BID PO Last administered on 01/13/17 09:21; Admin Dose 600 MG; Start 01/10/17 at 15:00 Midazolam HCl 50 ml @ 1 mls/hr TITRATE IV ; Start 01/11/17 at 11:00 Meropenem (Merrem 500 Mg/ 100 ml (Pmx)) 100 ml @ 200 mls/hr Q24H IVPB Last administered on 01/12/17 14:37; Admin Dose 200 MLS/HR; Start 01/11/17 at 14:00 Midodrine (Proamatine) 5 mg BID@17 NGT Last administered on 01/13/17 09:35; Admin Dose 5 MG; Start 01/12/17 at 09:00 Escitalopram Oxalate (Lexapro) 10 mg DAILY GTB Last administered on 01/13/17 09 :21; Admin Dose 10 MG; Start 01/13/17 at 09:00 Lorazepam (Ativan) 0.5 mg BID PO Last administered on 01/13/17 09:20; Admin Dose 0.5 MG; Start 01/13/17 at 09:00 AI FUNEZ NP Jan 13, 2017 12:39
[2017-01-13] MEDS: MEROPENEM 500 MG/100 ML (PMX) 100 ML IVPB SCH (14:04)
[2017-01-13] MEDS ORDERED: POTASSIUM CHLORIDE 20 MEQ POWDER FOR ORAL SOLN GTB ONE (16:30)
[2017-01-13] MEDS: LORAZEPAM 0.5 MG TAB PO SCH (21:24)
[2017-01-14] VITALS (56 sets, daily range): BP systolic 73–117; BP diastolic 39–96; PULSE 78–101; RESP 19–34
[2017-01-14] MEDS: ALBUTEROL 18 GM INHALER INH SCH ×4 (01:17→19:02)
[2017-01-14] MEDS: ACETYLCYSTEINE 20% 4 ML VIAL NEB SCH ×4 (01:17→19:02)
[2017-01-14] MEDS: IPRATROPIUM (HFA) 12.9 GM INHALER INH SCH ×4 (01:17→19:02)
[2017-01-14] MEDS ORDERED: SOD CHLORIDE 0.9% 500 ML IV ONE (02:30)
[2017-01-14 05:11] LABS: ADD SCAN DIFF NO
[2017-01-14 05:19] LABS: BASOPHILS % 0.3 % (0.0-2.0); EOSINOPHILS # 0.5 10^3/ul (0.0-0.5); EOSINOPHILS % 5.2 % (0.0-7.0); HEMATOCRIT 27.7 % (37.0-47.0); HEMOGLOBIN 8.4 g/dl (12.0-16.0); LYMPHOCYTES # 1.5 10^3/ul (0.8-2.9); LYMPHOCYTES % 15.6 % (15.0-51.0); MEAN CORPUSCULAR HEMOGLOBIN 27.7 pg (29.0-33.0); MEAN CORPUSCULAR HGB CONC 30.3 g/dl (32.0-37.0); MEAN CORPUSCULAR VOLUME 91.4 fl (82.0-101.0); MEAN PLATELET VOLUME 11.6 fl (7.4-10.4); MONOCYTE # 0.7 10^3/ul (0.3-0.9); MONOCYTES % 7.5 % (0.0-11.0); NEUTROPHIL # 6.8 10^3/ul (1.6-7.5); PLATELET COUNT 284 10^3/UL (140-415); RED BLOOD COUNT 3.03 10^6/ul (4.20-5.40); RED CELL DISTRIBUTION WIDTH 20.3 % (11.5-14.5); WHITE BLOOD COUNT 9.6 10^3/ul (4.8-10.8)
[2017-01-14 05:49] LABS: CALCIUM 9.7 mg/dl (8.4-10.2); CREATININE 2.06 mg/dl (0.44-1.00); MAGNESIUM 1.8 mg/dl (1.7-2.5); PHOSPHORUS 3.6 mg/dl (2.5-4.9); POTASSIUM 3.5 mmol/L (3.5-5.1)
[2017-01-14] MEDS: INSULIN ASPART [NOVOLOG] 3 ML PEN SC SCH ×4 (06:00→17:44)
--- NOTE | 2017-01-14 06:22 | CONS ---
Date/Time of Note Date/Time of Note DATE: 01/14/17 TIME: 06:16 Consult Date/Type/Reason Admit Date/Time Jan 07, 2017 at 12:43 Initial Consult Date 01/07/17 Type of Consultation: IM Ordering Provider: YAYO EDGAR This is a 66-year-old female with a past medical history of breast cancer status post bilateral mastectomy in 1992, who initially presented to [facility] several months ago for respiratory failure secondary to pneumonia. The patient during that hospital course, underwent trach and PEG and was complicated with C. diff colitis and was treated with vancomycin. The patient was then transferred to [facility] for continued care where she was treated for ARDS, pulmonary edema. The patient went into acute renal failure, was started initially on hemodialysis. 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 The patient's course was further complicated at [facility] due to bacteremia with Staph hominis and E. coli. The patient also developed DIC and thrombocytopenia before being stabilized. The patient was then transferred to [facility] where she was receiving care, was being weaned off ventilatory support. The pt was then transferred to [facility] and eventually [facility]. Admitted with resp failure. She had cxr showed pulmonary congestion. Pt was placed on fio2 100 on vent. She was also given breathing treatments. on high o2 requirements. tolerated hd yesterday. bp has remained borderline. poc reviewed with dr. tsang. HEENT: Head is normocephalic. NECK: Supple. HEART: Regular rate. LUNGS: Show diminished breath sounds at the base. ABDOMEN: Soft, nontender to palpation. Positive PEG. EXTREMITIES: Negative for clubbing, cyanosis, no edema. DERMATOLOGIC: No rashes. MUSCULOSKELETAL: No joint effusions. NEUROLOGIC: No change in exam. No obvious focal deficits. Objective Vital Signs Date Time Temp Pulse Resp B/P Pulse Ox O2 Delivery O2 Flow Rate FiO2 01/14/17 05:10 82 25 96 70 01/14/17 05:00 100/64 Mechanical Ventilator 01/14/17 04:00 98.2 Intake and Output 01/13/17 01/13/17 01/14/17 15:00 23:00 07:00 Intake Total 1450 ml 625 ml 1030 ml Output Total 3300 ml Balance -1850 ml 625 ml 1030 ml Results/Medications Result Diagram: 01/14/17 0428 01/13/17 0555 Results 24 hrs Laboratory Tests Test 01/13/17 12:02 01/13/17 17:09 01/13/17 23:52 01/14/17 04:28 Bedside Glucose 144 125 132 White Blood Count 9.6 Red Blood Count 3.03 L Hemoglobin 8.4 L Hematocrit 27.7 L Mean Corpuscular Volume 91.4 Mean Corpuscular Hemoglobin 27.7 L Mean Corpuscular Hemoglobin Concent 30.3 L Red Cell Distribution Width 20.3 H Platelet Count 284 Mean Platelet Volume 11.6 H Neutrophils % 71.0 Lymphocytes % 15.6 Monocytes % 7.5 Eosinophils % 5.2 Basophils % 0.3 Nucleated Red Blood Cells % 0.0 Neutrophils # 6.8 Lymphocytes # 1.5 Monocytes # 0.7 Eosinophils # 0.5 Basophils # 0.0 Nucleated Red Blood Cells # 0.0 Medications Current Medications Acetaminophen (Tylenol Liquid) 650 mg Q4H PRN GTB PAIN OR TEMP ABOVE 38C; Start 01/07/17 at 13:00 Amiodarone HCl (Cordarone) 200 mg DAILY GTB Last administered on 01/13/17 09:22 ; Admin Dose 200 MG; Start 01/07/17 at 13:00 Diphenhydramine HCl (Benadryl) 25 mg Q6H PRN GTB ITCHING Last administered on 06:23; Admin Dose 25 MG; Start 01/07/17 at 13:00 Multivit/Ca Carb/ B Cmplx/FA/Prenat (Macrina-Brigitte) 1 tab DAILY GTB Last administered on 01/13/17 09:21; Admin Dose 1 TAB; Start 01/08/17 at 09:00 Ondansetron HCl (Zofran Tab) 4 mg Q4H PRN GTB NAUSEA AND/OR VOMITING; Start 01/07/17 at 13:00 Sodium Phosphate (Kphos Neutral) 250 mg BID GTB Last administered on 01/13/17 21:23; Admin Dose 250 MG; Start 01/07/17 at 21:00 Miscellaneous Information 1 ea NOTE XX ; Start 01/07/17 at 23:45 Glucose (Glutose) 15 gm Q15M PRN PO DECREASED GLUCOSE; Start 01/07/17 at 23:45 Glucose (Glutose) 22.5 gm Q15M PRN PO DECREASED GLUCOSE; Start 01/07/17 at 23:45 Dextrose (D50w Syringe) 25 ml Q15M PRN IV DECREASED GLUCOSE; Start 01/07/17 at 23:45 Dextrose (D50w Syringe) 50 ml Q15M PRN IV DECREASED GLUCOSE; Start 01/07/17 at 23:45 Glucagon (Glucagen) 1 mg Q15M PRN IM DECREASED GLUCOSE; Start 01/07/17 at 23:45 Glucose (Glutose) 15 gm Q15M PRN BUCCAL DECREASED GLUCOSE; Start 01/07/17 at 23: 45 Miscellaneous Information (Pending [facility] Order For Wound Care) This patient lopez... PRN PRN XX WOUND CARE; Start 01/08/17 at 07:30 Insulin Aspart NOVOLOG *MILD* ALGORI... Q6 SC Last administered on 01/13/17 12: 05; Admin Dose 1 UNIT; Start 01/08/17 at 12:00 Caspofungin/ Sodium Chloride (Cancidas/NS) 250 ml @ 250 mls/hr Q24H IVPB Last administered on 01/13/17 12:06; Admin Dose 250 MLS/HR; Start 01/09/17 at 12:00 Heparin Sodium (Porcine) (Heparin (5000 Units/0.5 ml)) 5,000 unit BID SC Last administered on 01/13/17 21:36; Admin Dose 5,000 UNIT; Start 01/10/17 at 21:00 Lorazepam (Ativan) 1 mg Q6H PRN PO Agitation Last administered on 01/12/17 08: 32; Admin Dose 1 MG; Start 01/10/17 at 13:30 Linezolid 600 mg 600 mg BID PO Last administered on 01/13/17 21:22; Admin Dose 600 MG; Start 01/10/17 at 15:00 Midazolam HCl 50 ml @ 1 mls/hr TITRATE IV ; Start 01/11/17 at 11:00 Meropenem (Merrem 500 Mg/ 100 ml (Pmx)) 100 ml @ 200 mls/hr Q24H IVPB Last administered on 01/13/17 14:04; Admin Dose 200 MLS/HR; Start 01/11/17 at 14:00 Midodrine (Proamatine) 5 mg BID@ NGT Last administered on 01/13/17 17:10; Admin Dose 5 MG; Start 01/12/17 at 09:00 Escitalopram Oxalate (Lexapro) 10 mg DAILY GTB Last administered on 01/13/17 09 :21; Admin Dose 10 MG; Start 01/13/17 at 09:00 Lorazepam (Ativan) 0.5 mg QHS PO Last administered on 01/13/17 21:24; Admin Dose 0.5 MG; Start 01/13/17 at 21:00 Assessment/Plan Chief Complaint/Hosp Course 1. hypoxemic respiratory failure. etiology likely multifactorial, chf, ? pna, mucus plug, questionable PE -Anxiety may be a contributing factor -Consider CT angiogram. Will defer to pulmonary -Vent settings have been reviewed. FiO2 levels remain high but coming down slowly -Patient started on Lexapro and Ativan -Monitor 2. Possible sepsis. Secondary to UTI, questionable pneumonia. Urinalysis positive for pyuria. Urine culture is positive yyeast. chest x-ray suggests possible infiltrate - Continue antifungal therapy. Follow-up with infectious disease 3. Encephalopathy, acute. Etiology is likely secondary to toxic metabolic -Mental status appears to be improving continue to monitor 4. Dysphagia, status post percutaneous endoscopic gastrostomy. -Continue tube feeding. 5. ESRD -HD yesterday 7. Atrial fibrillation, currently rate controlled. Continue medical management. -Off anticoagulation secondary to previous bleed - Continue beta louise. We will follow up with cardiology. 8. Anemia. Continue to monitor hemoglobin and hematocrit levels. Continue Epogen 9. Mineral bone disease. Continue to monitor calcium and phosphorus levels. 10. History of breast cancer status post bilateral mastectomy. 11. Congestive heart failure. Continue medical management. 12. Diabetes. Continue Accu-Cheks and sliding scale. 13. History of Clostridium difficile colitis, status post treatment. 14. Gastrointestinal and deep venous thrombosis prophylaxis. Continue Protonix , SCD, heparin 15. Hypokalemia replete with potassium chloride 16. Anxiety disorder. Will start patient on Lexapro Please note I spent over 35 minutes critical care time with this patient Problems: TAMMIE HDZ MD Jan 14, 2017 06:21
--- NOTE | 2017-01-14 08:33 | CONS ---
Date/Time of Note Date/Time of Note DATE: 01/14/17 TIME: 08:32 Consult Date/Type/Reason Admit Date/Time Jan 07, 2017 at 12:43 Initial Consult Date 01/08/17 Type of Consultation: pulm/ccm Ordering Provider: YAYO EDGAR DO Subjective On vent. No events overnight. Objective Vital Signs Date Time Temp Pulse Resp B/P Pulse Ox O2 Delivery O2 Flow Rate FiO2 01/14/17 08:00 98.4 85 21 110/67 94 Mechanical Ventilator 01/14/17 05:10 70 Intake and Output 01/13/17 01/13/17 01/14/17 15:00 23:00 07:00 Intake Total 1450 ml 625 ml 1140 ml Output Total 3300 ml Balance -1850 ml 625 ml 1140 ml Exam HEENT: Pupils equal, round, and reactive to light. Tracheostomy site clean and intact. CARDIAC: S1, S2, 1/6 systolic ejection murmur CHEST: Diminished air entry bilaterally. ABDOMEN: Mildly distended. Bowel sounds present no guarding or rebound EXTREMITIES: No cyanosis, clubbing edema +1 Results/Medications Result Diagram: 01/14/17 0428 01/14/17 0428 Results 24 hrs Laboratory Tests Test 01/13/17 12:02 01/13/17 17:09 01/13/17 23:52 01/14/17 04:28 Bedside Glucose 144 125 132 White Blood Count 9.6 Red Blood Count 3.03 L Hemoglobin 8.4 L Hematocrit 27.7 L Mean Corpuscular Volume 91.4 Mean Corpuscular Hemoglobin 27.7 L Mean Corpuscular Hemoglobin Concent 30.3 L Red Cell Distribution Width 20.3 H Platelet Count 284 Mean Platelet Volume 11.6 H Neutrophils % 71.0 Lymphocytes % 15.6 Monocytes % 7.5 Eosinophils % 5.2 Basophils % 0.3 Nucleated Red Blood Cells % 0.0 Neutrophils # 6.8 Lymphocytes # 1.5 Monocytes # 0.7 Eosinophils # 0.5 Basophils # 0.0 Nucleated Red Blood Cells # 0.0 Sodium Level 139 Potassium Level 3.5 Chloride Level 98 Carbon Dioxide Level 25 Anion Gap 20 H Blood Urea Nitrogen 46 H Creatinine 2.06 H Glucose Level 125 Calcium Level 9.7 Phosphorus Level 3.6 Magnesium Level 1.8 Test 01/14/17 06:24 Bedside Glucose 136 Medications Current Medications Acetaminophen (Tylenol Liquid) 650 mg Q4H PRN GTB PAIN OR TEMP ABOVE 38C; Start 01/07/17 at 13:00 Amiodarone HCl (Cordarone) 200 mg DAILY GTB Last administered on 01/13/17 09:22 ; Admin Dose 200 MG; Start 01/07/17 at 13:00 Diphenhydramine HCl (Benadryl) 25 mg Q6H PRN GTB ITCHING Last administered on 06:23; Admin Dose 25 MG; Start 01/07/17 at 13:00 Multivit/Ca Carb/ B Cmplx/FA/Prenat (Macrina-Brigitte) 1 tab DAILY GTB Last administered on 01/13/17 09:21; Admin Dose 1 TAB; Start 01/08/17 at 09:00 Ondansetron HCl (Zofran Tab) 4 mg Q4H PRN GTB NAUSEA AND/OR VOMITING; Start 01/07/17 at 13:00 Sodium Phosphate (Kphos Neutral) 250 mg BID GTB Last administered on 01/13/17 21:23; Admin Dose 250 MG; Start 01/07/17 at 21:00 Miscellaneous Information 1 ea NOTE XX ; Start 01/07/17 at 23:45 Glucose (Glutose) 15 gm Q15M PRN PO DECREASED GLUCOSE; Start 01/07/17 at 23:45 Glucose (Glutose) 22.5 gm Q15M PRN PO DECREASED GLUCOSE; Start 01/07/17 at 23:45 Dextrose (D50w Syringe) 25 ml Q15M PRN IV DECREASED GLUCOSE; Start 01/07/17 at 23:45 Dextrose (D50w Syringe) 50 ml Q15M PRN IV DECREASED GLUCOSE; Start 01/07/17 at 23:45 Glucagon (Glucagen) 1 mg Q15M PRN IM DECREASED GLUCOSE; Start 01/07/17 at 23:45 Glucose (Glutose) 15 gm Q15M PRN BUCCAL DECREASED GLUCOSE; Start 01/07/17 at 23: 45 Miscellaneous Information (Pending [facility] Order For Wound Care) This patient lopez... PRN PRN XX WOUND CARE; Start 01/08/17 at 07:30 Insulin Aspart NOVOLOG *MILD* ALGORI... Q6 SC Last administered on 01/13/17 12: 05; Admin Dose 1 UNIT; Start 01/08/17 at 12:00 Caspofungin/ Sodium Chloride (Cancidas/NS) 250 ml @ 250 mls/hr Q24H IVPB Last administered on 01/13/17 12:06; Admin Dose 250 MLS/HR; Start 01/09/17 at 12:00 Heparin Sodium (Porcine) (Heparin (5000 Units/0.5 ml)) 5,000 unit BID SC Last administered on 01/13/17 21:36; Admin Dose 5,000 UNIT; Start 01/10/17 at 21:00 Lorazepam (Ativan) 1 mg Q6H PRN PO Agitation Last administered on 01/12/17 08: 32; Admin Dose 1 MG; Start 01/10/17 at 13:30 Linezolid 600 mg 600 mg BID PO Last administered on 01/13/17 21:22; Admin Dose 600 MG; Start 01/10/17 at 15:00 Midazolam HCl 50 ml @ 1 mls/hr TITRATE IV ; Start 01/11/17 at 11:00 Meropenem (Merrem 500 Mg/ 100 ml (Pmx)) 100 ml @ 200 mls/hr Q24H IVPB Last administered on 01/13/17 14:04; Admin Dose 200 MLS/HR; Start 01/11/17 at 14:00 Midodrine (Proamatine) 5 mg BID@09,17 NGT Last administered on 01/13/17 17:10; Admin Dose 5 MG; Start 01/12/17 at 09:00 Escitalopram Oxalate (Lexapro) 10 mg DAILY GTB Last administered on 01/13/17 09 :21; Admin Dose 10 MG; Start 01/13/17 at 09:00 Lorazepam (Ativan) 0.5 mg QHS PO Last administered on 01/13/17 21:24; Admin Dose 0.5 MG; Start 01/13/17 at 21:00 Assessment/Plan Chief Complaint/Hosp Course Briefly, this is a 66-year-old female with a past medical history of breast cancer status post bilateral mastectomy in 1982 s/p prolonged hospital course recently at [place], [facility], and [facility], with ARDS leading to chronic resp failure s/p trach and PEG, complicated by C. difficile colitis, acute renal failure on dialysis and critical care polyneuropathy who now presents from SNF with hypoxemic resp failure requiring high FiO2. Problems: Additional Assessment/Plan IMP: 1. Acute on chronic hypoxemic respiratory failure possible component of worsening volume overload in addition to pneumonia 2. UTI 3. VDRF 4. ESRD on HD status post hemodialysis today with volume removal 5. Anemia likely secondary to underlying renal disease RECS: 1. Decrease FiO2 and PEEP as needed 2. Continue pulmonary toilet 3. Continue hemodialysis with volume removal 4. continue antibiotics per ID 5. continue Mucomyst 6. Continue Ativan and Lexapro 7. TF/free H20 8 Am labs 35 min cc time LEIDA LINARES MD Jan 14, 2017 08:33
[2017-01-14] MEDS: MULTIVIT/CA CARB/B CMPLX/FA TAB GTB SCH (08:37)
[2017-01-14] MEDS: LANSOPRAZOLE 30 MG CAP GTB SCH (08:37)
[2017-01-14] MEDS: SOD PHOS MONO/DIBAS 250 MG TAB GTB SCH ×2 (08:37→20:53)
[2017-01-14] MEDS: AMIODARONE 200 MG TAB GTB SCH (08:38)
[2017-01-14] MEDS: ESCITALOPRAM 10 MG TAB GTB SCH (08:38)
[2017-01-14] MEDS: MIDODRINE 5 MG TAB NGT SCH ×2 (08:38→17:43)
[2017-01-14] MEDS: ZYVOX 600 MG TAB PO SCH ×2 (08:38→20:53)
[2017-01-14] MEDS: HEPARIN 5,000 UNIT/0.5 ML VIAL SC SCH ×2 (08:40→21:00)
--- NOTE | 2017-01-14 11:21 | RADRPT ---
PROCEDURE: XR Chest. CLINICAL INDICATION: Respiratory failure TECHNIQUE: An AP view of the chest was obtained. COMPARISON: Chest x-ray dated 01/12/2017 and 01/13/2017 FINDINGS: A tracheostomy tube is in place. There is a left subclavian dual chamber pacemaker. There is a right chest Perma-Cath with tip near the cavoatrial junction. Lung volumes are low with diffuse bilateral interstitial opacities. No pleural effusion or pneumot horax is seen. The cardiomediastinal silhouette is within normal limits for size. Calcifications ar e seen within the aortic arch. The osseous structures demonstrate senescent changes. There are bi lateral axillary surgical clips. IMPRESSION: 1. Low lung volumes with findings suggestive of interstitial edema. There is improved aeration of t he left lung when compared to the prior examination. 2. Aortic atherosclerosis. 3. Tubes and lines, as described above. RPTAT: HH .Kati Roach MD, MD Date Time Electronically viewed and signed by .Kati Roach MD, on 01/14/2017 11:20 .G/
[2017-01-14] MEDS: CASPOFUNGIN 50 MG in SOD CHLORIDE 0.9% 250 ML IVPB SCH (11:36)
[2017-01-14] MEDS: MEROPENEM 500 MG/100 ML (PMX) 100 ML IVPB SCH (13:54)
[2017-01-14] MEDS: EPOETIN 4000 UNITS/1 ML INJ (ESRD) SC SCH (13:55)
--- NOTE | 2017-01-14 15:44 | CONS ---
Date/Time of Note Date/Time of Note DATE: 01/14/17 TIME: 15:43 Assessment/Plan Assessment/Plan Chief Complaint/Hosp Course No acute events no fevers, lying comfortably in bed Temperature 98.4, pulse 88 respirations 26 blood pressure 91/56 saturation 97% on vent WBC 9.6 H&H 8.4 and 27.7 platelets 284 Chest x-ray this morning revealed interstitial edema with improved aeration of the left lung Indwelling's: Trach, PEG, permanent pacemaker, right chest permacath Antibiotics: Cancidas, Zyvox, Merrem Microbiology: Urine culture growing Dilcia glabrata, wound culture growing enterococcus and coag negative staph species Allergy: Erythromycin, vancomycin Physical examination: Chronically ill-appearing elderly woman who is in no distress. Head atraumatic normocephalic, sclera nonicteric, neck is supple, tracheostomy present. Chest rise symmetrical, breath sounds diminished basis. Heart S1-S2. Abdomen soft, bowel tones present. Extremities no cyanosis Assessment: 1. Acute on chronic Hypoxemic Resp Failure, possible pneumonia 2. UTI 3. VDRF 4. ESRD on HD 5. Sacral decubitus Plan: Remains hemodynamically stable, continue antibiotics, local wound care, vent management per pulmonary recommendations Discussed with staff Problems: Consultation Date/Type/Reason Admit Date/Time Jan 07, 2017 at 12:43 Initial Consult Date 01/08/17 Type of Consultation: ID Referring Provider: YAYO EDGAR DO Exam/Review of Systems Vital Signs Vitals Vital Signs Date Time Temp Pulse Resp B/P Pulse Ox O2 Delivery O2 Flow Rate FiO2 01/14/17 15:30 88 26 91/56 97 Mechanical Ventilator 01/14/17 12:00 98.4 01/14/17 08:00 70 Intake and Output 01/13/17 01/13/17 01/14/17 15:00 23:00 07:00 Intake Total 1450 ml 625 ml 1140 ml Output Total 3300 ml Balance -1850 ml 625 ml 1140 ml Results Result Diagram: 01/14/17 0428 01/14/17 0428 Results 24 hrs Laboratory Tests Test 01/13/17 17:09 01/13/17 23:52 01/14/17 04:28 01/14/17 06:24 Bedside Glucose 125 132 136 White Blood Count 9.6 Red Blood Count 3.03 L Hemoglobin 8.4 L Hematocrit 27.7 L Mean Corpuscular Volume 91.4 Mean Corpuscular Hemoglobin 27.7 L Mean Corpuscular Hemoglobin Concent 30.3 L Red Cell Distribution Width 20.3 H Platelet Count 284 Mean Platelet Volume 11.6 H Neutrophils % 71.0 Lymphocytes % 15.6 Monocytes % 7.5 Eosinophils % 5.2 Basophils % 0.3 Nucleated Red Blood Cells % 0.0 Neutrophils # 6.8 Lymphocytes # 1.5 Monocytes # 0.7 Eosinophils # 0.5 Basophils # 0.0 Nucleated Red Blood Cells # 0.0 Sodium Level 139 Potassium Level 3.5 Chloride Level 98 Carbon Dioxide Level 25 Anion Gap 20 H Blood Urea Nitrogen 46 H Creatinine 2.06 H Glucose Level 125 Calcium Level 9.7 Phosphorus Level 3.6 Magnesium Level 1.8 Test 01/14/17 11:27 Bedside Glucose 135 Medications Medications Current Medications Acetaminophen (Tylenol Liquid) 650 mg Q4H PRN GTB PAIN OR TEMP ABOVE 38C; Start 01/07/17 at 13:00 Amiodarone HCl (Cordarone) 200 mg DAILY GTB Last administered on 01/14/17 08:38 ; Admin Dose 200 MG; Start 01/07/17 at 13:00 Diphenhydramine HCl (Benadryl) 25 mg Q6H PRN GTB ITCHING Last administered on 06:23; Admin Dose 25 MG; Start 01/07/17 at 13:00 Multivit/Ca Carb/ B Cmplx/FA/Prenat (Macrina-Brigitte) 1 tab DAILY GTB Last administered on 01/14/17 08:37; Admin Dose 1 TAB; Start 01/08/17 at 09:00 Ondansetron HCl (Zofran Tab) 4 mg Q4H PRN GTB NAUSEA AND/OR VOMITING; Start 01/07/17 at 13:00 Sodium Phosphate (Kphos Neutral) 250 mg BID GTB Last administered on 01/14/17 08:37; Admin Dose 250 MG; Start 01/07/17 at 21:00 Miscellaneous Information 1 ea NOTE XX ; Start 01/07/17 at 23:45 Glucose (Glutose) 15 gm Q15M PRN PO DECREASED GLUCOSE; Start 01/07/17 at 23:45 Glucose (Glutose) 22.5 gm Q15M PRN PO DECREASED GLUCOSE; Start 01/07/17 at 23:45 Dextrose (D50w Syringe) 25 ml Q15M PRN IV DECREASED GLUCOSE; Start 01/07/17 at 23:45 Dextrose (D50w Syringe) 50 ml Q15M PRN IV DECREASED GLUCOSE; Start 01/07/17 at 23:45 Glucagon (Glucagen) 1 mg Q15M PRN IM DECREASED GLUCOSE; Start 01/07/17 at 23:45 Glucose (Glutose) 15 gm Q15M PRN BUCCAL DECREASED GLUCOSE; Start 01/07/17 at 23: 45 Miscellaneous Information (Pending [facility] Order For Wound Care) This patient lopez... PRN PRN XX WOUND CARE; Start 01/08/17 at 07:30 Insulin Aspart NOVOLOG *MILD* ALGORI... Q6 SC Last administered on 01/13/17 12: 05; Admin Dose 1 UNIT; Start 01/08/17 at 12:00 Caspofungin/ Sodium Chloride (Cancidas/NS) 250 ml @ 250 mls/hr Q24H IVPB Last administered on 01/14/17 11:36; Admin Dose 250 MLS/HR; Start 01/09/17 at 12:00 Heparin Sodium (Porcine) (Heparin (5000 Units/0.5 ml)) 5,000 unit BID SC Last administered on 01/14/17 08:40; Admin Dose 5,000 UNIT; Start 01/10/17 at 21:00 Lorazepam (Ativan) 1 mg Q6H PRN PO Agitation Last administered on 01/12/17 08: 32; Admin Dose 1 MG; Start 01/10/17 at 13:30 Linezolid 600 mg 600 mg BID PO Last administered on 01/14/17 08:38; Admin Dose 600 MG; Start 01/10/17 at 15:00 Midazolam HCl 50 ml @ 1 mls/hr TITRATE IV ; Start 01/11/17 at 11:00 Meropenem (Merrem 500 Mg/ 100 ml (Pmx)) 100 ml @ 200 mls/hr Q24H IVPB Last administered on 01/14/17 13:54; Admin Dose 200 MLS/HR; Start 01/11/17 at 14:00 Midodrine (Proamatine) 5 mg BID@,17 NGT Last administered on 01/14/17 08:38; Admin Dose 5 MG; Start 01/12/17 at 09:00 Escitalopram Oxalate (Lexapro) 10 mg DAILY GTB Last administered on 01/14/17 08 :38; Admin Dose 10 MG; Start 01/13/17 at 09:00 Lorazepam (Ativan) 0.5 mg QHS PO Last administered on 01/13/17 21:24; Admin Dose 0.5 MG; Start 01/13/17 at 21:00 AI FUNEZ CLEARING HAND Jan 14, 2017 15:44
[2017-01-14] MEDS: LORAZEPAM 0.5 MG TAB PO SCH (20:53)
[2017-01-15] VITALS (91 sets, daily range): BP systolic 55–150; BP diastolic 41–82; PULSE 65–92; RESP 14–42
[2017-01-15] MEDS: ALBUTEROL 18 GM INHALER INH SCH ×4 (01:05→19:08)
[2017-01-15] MEDS: ACETYLCYSTEINE 20% 4 ML VIAL NEB SCH ×4 (01:05→19:08)
[2017-01-15] MEDS: IPRATROPIUM (HFA) 12.9 GM INHALER INH SCH ×4 (01:05→19:08)
[2017-01-15] MEDS: LORAZEPAM 0.5 MG TAB PO PRN (05:07)
[2017-01-15] MEDS: ONDANSETRON 4 MG TAB GTB PRN (05:07)
[2017-01-15 05:17] LABS: ADD SCAN DIFF NO
[2017-01-15 05:28] LABS: BASOPHILS % 0.4 % (0.0-2.0); EOSINOPHILS # 0.4 10^3/ul (0.0-0.5); HEMATOCRIT 28.1 % (37.0-47.0); HEMOGLOBIN 8.2 g/dl (12.0-16.0); LYMPHOCYTES # 1.3 10^3/ul (0.8-2.9); LYMPHOCYTES % 15.7 % (15.0-51.0); MEAN CORPUSCULAR HEMOGLOBIN 27.3 pg (29.0-33.0); MEAN CORPUSCULAR HGB CONC 29.2 g/dl (32.0-37.0); MEAN CORPUSCULAR VOLUME 93.7 fl (82.0-101.0); MEAN PLATELET VOLUME 11.9 fl (7.4-10.4); MONOCYTE # 0.5 10^3/ul (0.3-0.9); MONOCYTES % 6.4 % (0.0-11.0); NEUTROPHIL # 6.1 10^3/ul (1.6-7.5); PLATELET COUNT 246 10^3/UL (140-415); RED CELL DISTRIBUTION WIDTH 20.3 % (11.5-14.5); WHITE BLOOD COUNT 8.4 10^3/ul (4.8-10.8)
[2017-01-15 05:51] LABS: ALBUMIN 4.5 g/dl (3.3-4.9); ALBUMIN/GLOBULIN RATIO 1.07; BILIRUBIN,INDIRECT 0.2 mg/dl (0-1.1); BILIRUBIN,TOTAL 0.2 mg/dl (0.2-1.3); CALCIUM 9.7 mg/dl (8.4-10.2); CREATININE 1.9 mg/dl (0.44-1.00); MAGNESIUM 1.9 mg/dl (1.7-2.5); PHOSPHORUS 3.6 mg/dl (2.5-4.9); POTASSIUM 3.2 mmol/L (3.5-5.1); TOTAL PROTEIN 8.7 g/dl (6.1-8.1)
[2017-01-15] MEDS: INSULIN ASPART [NOVOLOG] 3 ML PEN SC SCH ×4 (06:00→17:07)
[2017-01-15] MEDS ORDERED: SOD CHLORIDE 0.9% 500 ML IV ONE (06:30)
[2017-01-15] MEDS: LANSOPRAZOLE 30 MG CAP GTB SCH (06:32)
--- NOTE | 2017-01-15 06:58 | CONS ---
Date/Time of Note Date/Time of Note DATE: 01/15/17 TIME: 06:50 Consult Date/Type/Reason Admit Date/Time Jan 07, 2017 at 12:43 Initial Consult Date 01/07/17 Type of Consultation: im/neph Ordering Provider: YAYO EDGAR This is a 66-year-old female with a past medical history of breast cancer status post bilateral mastectomy in 1992, who initially presented to [facility] several months ago for respiratory failure secondary to pneumonia. The patient during that hospital course, underwent trach and PEG and was complicated with C. diff colitis and was treated with vancomycin. The patient was then transferred to [facility] for continued care where she was treated for ARDS, pulmonary edema. The patient went into acute renal failure, was started initially on hemodialysis. 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 The patient's course was further complicated at [facility] due to bacteremia with Staph hominis and E. coli. The patient also developed DIC and thrombocytopenia before being stabilized. The patient was then transferred to [facility] where she was receiving care, was being weaned off ventilatory support. The pt was then transferred to [facility] and eventually [facility]. Admitted with resp failure. She had cxr showed pulmonary congestion. Pt was placed on fio2 100 on vent. She was also given breathing treatments. on high o2 requirements. bp has remained borderline. yesterday had an episode of hypotension that responded to bolus. today noted vomiting with residuals and tf held. This am became hypotensive with sbp in 60's. poc reviewed with dr. tsang. HEENT: Head is normocephalic. NECK: Supple. HEART: Regular rate. LUNGS: Show diminished breath sounds at the base. ABDOMEN: Soft, nontender to palpation. Positive PEG. EXTREMITIES: Negative for clubbing, cyanosis, no edema. DERMATOLOGIC: No rashes. MUSCULOSKELETAL: No joint effusions. NEUROLOGIC: No change in exam. No obvious focal deficits. Objective Vital Signs Date Time Temp Pulse Resp B/P Pulse Ox O2 Delivery O2 Flow Rate FiO2 01/15/17 05:52 100 01/15/17 05:00 90 31 96 01/15/17 04:30 93/53 Mechanical Ventilator 01/15/17 00:00 98.7 Intake and Output 01/14/17 01/14/17 01/15/17 15:00 23:00 07:00 Intake Total 1590 ml 265 ml Output Total 3000 ml Balance -1410 ml 265 ml Results/Medications Result Diagram: 01/15/17 0425 01/15/17 0425 Results 24 hrs Laboratory Tests Test 01/14/17 11:27 01/14/17 17:43 01/15/17 00:47 01/15/17 04:25 Bedside Glucose 135 144 110 White Blood Count 8.4 Red Blood Count 3.00 L Hemoglobin 8.2 L Hematocrit 28.1 L Mean Corpuscular Volume 93.7 Mean Corpuscular Hemoglobin 27.3 L Mean Corpuscular Hemoglobin Concent 29.2 L Red Cell Distribution Width 20.3 H Platelet Count 246 Mean Platelet Volume 11.9 H Neutrophils % 72.0 Lymphocytes % 15.7 Monocytes % 6.4 Eosinophils % 5.0 Basophils % 0.4 Nucleated Red Blood Cells % 0.0 Neutrophils # 6.1 Lymphocytes # 1.3 Monocytes # 0.5 Eosinophils # 0.4 Basophils # 0.0 Nucleated Red Blood Cells # 0.0 Sodium Level 136 Potassium Level 3.2 L Chloride Level 98 Carbon Dioxide Level 27 Anion Gap 14 Blood Urea Nitrogen 41 H Creatinine 1.90 H Glucose Level 139 Calcium Level 9.7 Phosphorus Level 3.6 Magnesium Level 1.9 Total Bilirubin 0.2 Direct Bilirubin 0.00 Indirect Bilirubin 0.2 Aspartate Amino Transf (AST/SGOT) 18 Alanine Aminotransferase (ALT/SGPT) 19 Alkaline Phosphatase 78 Total Protein 8.7 H Albumin 4.5 Globulin 4.20 H Albumin/Globulin Ratio 1.07 Test 01/15/17 06:31 Bedside Glucose 104 Medications Current Medications Acetaminophen (Tylenol Liquid) 650 mg Q4H PRN GTB PAIN OR TEMP ABOVE 38C; Start 01/07/17 at 13:00 Amiodarone HCl (Cordarone) 200 mg DAILY GTB Last administered on 01/14/17 08:38 ; Admin Dose 200 MG; Start 01/07/17 at 13:00 Diphenhydramine HCl (Benadryl) 25 mg Q6H PRN GTB ITCHING Last administered on 06:23; Admin Dose 25 MG; Start 01/07/17 at 13:00 Multivit/Ca Carb/ B Cmplx/FA/Prenat (Macrina-Brigitte) 1 tab DAILY GTB Last administered on 01/14/17 08:37; Admin Dose 1 TAB; Start 01/08/17 at 09:00 Ondansetron HCl (Zofran Tab) 4 mg Q4H PRN GTB NAUSEA AND/OR VOMITING Last administered on 01/15/17 05:07; Admin Dose 4 MG; Start 01/07/17 at 13:00 Sodium Phosphate (Kphos Neutral) 250 mg BID GTB Last administered on 01/14/17 20:53; Admin Dose 250 MG; Start 01/07/17 at 21:00 Miscellaneous Information 1 ea NOTE XX ; Start 01/07/17 at 23:45 Glucose (Glutose) 15 gm Q15M PRN PO DECREASED GLUCOSE; Start 01/07/17 at 23:45 Glucose (Glutose) 22.5 gm Q15M PRN PO DECREASED GLUCOSE; Start 01/07/17 at 23:45 Dextrose (D50w Syringe) 25 ml Q15M PRN IV DECREASED GLUCOSE; Start 01/07/17 at 23:45 Dextrose (D50w Syringe) 50 ml Q15M PRN IV DECREASED GLUCOSE; Start 01/07/17 at 23:45 Glucagon (Glucagen) 1 mg Q15M PRN IM DECREASED GLUCOSE; Start 01/07/17 at 23:45 Glucose (Glutose) 15 gm Q15M PRN BUCCAL DECREASED GLUCOSE; Start 01/07/17 at 23: 45 Miscellaneous Information [facility] This patient lopez... PRN PRN XX WOUND CARE; Start 01/08/17 at 07:30 Insulin Aspart NOVOLOG *MILD* ALGORI... Q6 SC Last administered on 01/14/17 17: 44; Admin Dose 1 UNIT; Start 01/08/17 at 12:00 Caspofungin/ Sodium Chloride (Cancidas/NS) 250 ml @ 250 mls/hr Q24H IVPB Last administered on 01/14/17 11:36; Admin Dose 250 MLS/HR; Start 01/09/17 at 12:00 Heparin Sodium (Porcine) (Heparin (5000 Units/0.5 ml)) 5,000 unit BID SC Last administered on 01/14/17 21:00; Admin Dose 5,000 UNIT; Start 01/10/17 at 21:00 Lorazepam (Ativan) 1 mg Q6H PRN PO Agitation Last administered on 01/15/17 05: 07; Admin Dose 1 MG; Start 01/10/17 at 13:30 Linezolid 600 mg 600 mg BID PO Last administered on 01/14/17 20:53; Admin Dose 600 MG; Start 01/10/17 at 15:00 Midazolam HCl 50 ml @ 1 mls/hr TITRATE IV ; Start 01/11/17 at 11:00 Meropenem (Merrem 500 Mg/ 100 ml (Pmx)) 100 ml @ 200 mls/hr Q24H IVPB Last administered on 01/14/17 13:54; Admin Dose 200 MLS/HR; Start 01/11/17 at 14:00 Midodrine (Proamatine) 5 mg BID@09,17 NGT Last administered on 01/14/17 17:43; Admin Dose 5 MG; Start 01/12/17 at 09:00 Escitalopram Oxalate (Lexapro) 10 mg DAILY GTB Last administered on 01/14/17 08 :38; Admin Dose 10 MG; Start 01/13/17 at 09:00 Lorazepam 0.5 mg 0.5 mg QHS PO Last administered on 01/14/17 20:53; Admin Dose 0.5 MG; Start 01/13/17 at 21:00 Sodium Chloride (NS) 500 ml @ 500 mls/hr Q1H ONCE IV Last administered on 06:29; Admin Dose 500 MLS/HR; Start 01/15/17 at 06:30; Stop 01/15/17 at 07:29 Assessment/Plan Chief Complaint/Hosp Course 1. hypoxemic respiratory failure. etiology likely multifactorial, chf, ? pna, mucus plug, -Anxiety may be a contributing factor - ct showed :Likely congestive changes including pleural effusions as well as likely pulmonary and interstitial edema. Extensive mediastinal adenopathy. Large left thyroid nodule which is partially seen. -Vent settings have been reviewed. FiO2 levels remain high but coming down slowly -Patient started on Lexapro and Ativan -Monitor 2. Possible sepsis. Secondary to UTI, questionable pneumonia. Urinalysis positive for pyuria. Urine culture is positive yyeast. chest x-ray suggests possible infiltrate - Continue antifungal therapy. Follow-up with infectious disease 3. shock- possibly septic but wbc is unchanged and no fever. ro cardiogenic. fluid challenge. prbc with hd today. check serial troponins. 4. Dysphagia, status post percutaneous endoscopic gastrostomy. -Continue tube feeding. 5. ESRD -HD today with prbc 7. Atrial fibrillation, currently rate controlled. Continue medical management. -Off anticoagulation secondary to previous bleed - Continue beta louise. We will follow up with cardiology. 8. Anemia. Continue to monitor hemoglobin and hematocrit levels. Continue Epogen transfuse today as symptomatic. 9. Mineral bone disease. Continue to monitor calcium and phosphorus levels. 10. History of breast cancer status post bilateral mastectomy. 11. Congestive heart failure. Continue medical management. 12. Diabetes. Continue Accu-Cheks and sliding scale. 13. History of Clostridium difficile colitis, status post treatment. 14. Gastrointestinal and deep venous thrombosis prophylaxis. Continue Protonix , SCD, heparin 15. Hypokalemia replete with dialysis 16. Anxiety disorder. Will start patient on Lexapro Please note I spent over 35 minutes critical care time with this patient Problems: TAMMIE HDZ MD Jan 15, 2017 06:58
[2017-01-15] MEDS ORDERED: NORepinephrine 8MG/250 ML (PMX 250 ML ONE (07:37)
[2017-01-15] MEDS ORDERED: NORepinephrine 8MG/250 ML (PMX 250 ML IV SCH ×2 (08:00→19:00)
[2017-01-15 08:34] LABS: AADO2 Arterial 619.8 mmHg (7.0-24.0); Arterial Base Excess 2.1 mmol/L (-3.0-3); Arterial COHb 0.3 % (0.0-3.0); Arterial Fraction of Oxyhgb 80.4 % (93.0-99.0); Arterial HCO3 27.3 mmol/L (22.0-26.0); Arterial MetHb 0.2 % (0.0-1.5); MODE VENT - AC
[2017-01-15] MEDS: AMIODARONE 200 MG TAB GTB SCH (09:00)
[2017-01-15] MEDS: ESCITALOPRAM 10 MG TAB GTB SCH (09:29)
[2017-01-15] MEDS: SOD PHOS MONO/DIBAS 250 MG TAB GTB SCH ×2 (09:30→21:08)
[2017-01-15] MEDS: MULTIVIT/CA CARB/B CMPLX/FA TAB GTB SCH (09:30)
[2017-01-15] MEDS: ZYVOX 600 MG TAB PO SCH ×2 (09:30→21:08)
[2017-01-15] MEDS: HEPARIN 5,000 UNIT/0.5 ML VIAL SC SCH ×2 (09:32→21:09)
[2017-01-15] MEDS: MIDODRINE 5 MG TAB NGT SCH ×2 (09:34→17:07)
[2017-01-15] MEDS: CASPOFUNGIN 50 MG in SOD CHLORIDE 0.9% 250 ML IVPB SCH (12:18)
--- NOTE | 2017-01-15 12:19 | CONS ---
Date/Time of Note Date/Time of Note DATE: 01/15/17 TIME: 12:17 Consult Date/Type/Reason Admit Date/Time Jan 07, 2017 at 12:43 Initial Consult Date 01/08/17 Type of Consultation: Pulm/CCM Ordering Provider: YAYO EDGAR DO Subjective On levophed gtt. On vent. Objective Vital Signs Date Time Temp Pulse Resp B/P Pulse Ox O2 Delivery O2 Flow Rate FiO2 01/15/17 11:30 78 20 99/50 98 01/15/17 11:00 100 01/15/17 08:00 97.8 01/15/17 06:30 Mechanical Ventilator Intake and Output 01/14/17 01/14/17 01/15/17 15:00 23:00 07:00 Intake Total 1590 ml 430 ml 475 ml Output Total 3000 ml Balance -1410 ml 430 ml 475 ml Exam HEENT: Pupils equal, round, and reactive to light. Tracheostomy site clean and intact. CARDIAC: S1, S2, 1/6 systolic ejection murmur CHEST: Diminished air entry bilaterally. ABDOMEN: Mildly distended. Bowel sounds present no guarding or rebound EXTREMITIES: No cyanosis, clubbing edema +1 Results/Medications Result Diagram: 01/15/17 0425 01/15/17 0425 Results 24 hrs Laboratory Tests Test 01/14/17 17:43 01/15/17 00:47 01/15/17 04:25 01/15/17 06:31 Bedside Glucose 144 110 104 White Blood Count 8.4 Red Blood Count 3.00 L Hemoglobin 8.2 L Hematocrit 28.1 L Mean Corpuscular Volume 93.7 Mean Corpuscular Hemoglobin 27.3 L Mean Corpuscular Hemoglobin Concent 29.2 L Red Cell Distribution Width 20.3 H Platelet Count 246 Mean Platelet Volume 11.9 H Neutrophils % 72.0 Lymphocytes % 15.7 Monocytes % 6.4 Eosinophils % 5.0 Basophils % 0.4 Nucleated Red Blood Cells % 0.0 Neutrophils # 6.1 Lymphocytes # 1.3 Monocytes # 0.5 Eosinophils # 0.4 Basophils # 0.0 Nucleated Red Blood Cells # 0.0 Sodium Level 136 Potassium Level 3.2 L Chloride Level 98 Carbon Dioxide Level 27 Anion Gap 14 Blood Urea Nitrogen 41 H Creatinine 1.90 H Glucose Level 139 Calcium Level 9.7 Phosphorus Level 3.6 Magnesium Level 1.9 Total Bilirubin 0.2 Direct Bilirubin 0.00 Indirect Bilirubin 0.2 Aspartate Amino Transf (AST/SGOT) 18 Alanine Aminotransferase (ALT/SGPT) 19 Alkaline Phosphatase 78 Total Protein 8.7 H Albumin 4.5 Globulin 4.20 H Albumin/Globulin Ratio 1.07 Test 01/15/17 08:00 01/15/17 10:37 01/15/17 12:08 Blood Gas Specimen Source Blood arterial Arterial Blood Date Drawn 01/15/2017 8:10:32 AM Arterial Blood pH (Temp corrected) 7.397 Arterial Blood pCO2 (Temp correct) 45.4 H Arterial Blood pO2 (Temp corrected) 47.8 *L Arterial Blood HCO3 27.3 H Arterial Blood Base Excess 2.1 Arterial Blood Oxygen Saturation 80.8 L Ivan Test N/A Arterial Blood Gas Puncture Site Right Brachial Arterial Blood Carboxyhemoglobin 0.3 Arterial Blood Methemoglobin 0.2 Blood Gas A-a O2 Differential 619.8 H Oxyhemoglobin Percent 80.4 L Total Hemoglobin 9.0 L Blood Gas Temperature 37.0 Blood Gas Respiration Rate 16.0 Blood Gas Actual Respiration Rate 23 Blood Gas Modality VENT - AC FiO2 100.0 Blood Gas Tidal Volume 500.0 Blood Gas Low PEEP Setting 5.0 Blood Gas Critical Value Read Back HUSSAIN GUADALUPE Blood Gas Notified Whom CW Blood Gas Notified Time 01/15/2017 8:33:55 AM Lactic Acid Level 3.1 H Bedside Glucose 128 Medications Current Medications Acetaminophen (Tylenol Liquid) 650 mg Q4H PRN GTB PAIN OR TEMP ABOVE 38C; Start 01/07/17 at 13:00 Amiodarone HCl (Cordarone) 200 mg DAILY GTB Last administered on 01/14/17 08:38 ; Admin Dose 200 MG; Start 01/07/17 at 13:00 Diphenhydramine HCl (Benadryl) 25 mg Q6H PRN GTB ITCHING Last administered on 06:23; Admin Dose 25 MG; Start 01/07/17 at 13:00 Multivit/Ca Carb/ B Cmplx/FA/Prenat (Macrina-Brigitte) 1 tab DAILY GTB Last administered on 01/15/17 09:30; Admin Dose 1 TAB; Start 01/08/17 at 09:00 Ondansetron HCl (Zofran Tab) 4 mg Q4H PRN GTB NAUSEA AND/OR VOMITING Last administered on 01/15/17 05:07; Admin Dose 4 MG; Start 01/07/17 at 13:00 Sodium Phosphate (Kphos Neutral) 250 mg BID GTB Last administered on 01/15/17 09:30; Admin Dose 250 MG; Start 01/07/17 at 21:00 Miscellaneous Information 1 ea NOTE XX ; Start 01/07/17 at 23:45 Glucose (Glutose) 15 gm Q15M PRN PO DECREASED GLUCOSE; Start 01/07/17 at 23:45 Glucose (Glutose) 22.5 gm Q15M PRN PO DECREASED GLUCOSE; Start 01/07/17 at 23:45 Dextrose (D50w Syringe) 25 ml Q15M PRN IV DECREASED GLUCOSE; Start 01/07/17 at 23:45 Dextrose (D50w Syringe) 50 ml Q15M PRN IV DECREASED GLUCOSE; Start 01/07/17 at 23:45 Glucagon (Glucagen) 1 mg Q15M PRN IM DECREASED GLUCOSE; Start 01/07/17 at 23:45 Glucose (Glutose) 15 gm Q15M PRN BUCCAL DECREASED GLUCOSE; Start 01/07/17 at 23: 45 Miscellaneous Information (Pending [facility] Order For Wound Care) This patient lopez... PRN PRN XX WOUND CARE; Start 01/08/17 at 07:30 Insulin Aspart NOVOLOG *MILD* ALGORI... Q6 SC Last administered on 01/14/17 17: 44; Admin Dose 1 UNIT; Start 01/08/17 at 12:00 Caspofungin/ Sodium Chloride (Cancidas/NS) 250 ml @ 250 mls/hr Q24H IVPB Last administered on 01/14/17 11:36; Admin Dose 250 MLS/HR; Start 01/09/17 at 12:00 Heparin Sodium (Porcine) (Heparin (5000 Units/0.5 ml)) 5,000 unit BID SC Last administered on 01/15/17 09:32; Admin Dose 5,000 UNIT; Start 01/10/17 at 21:00 Lorazepam (Ativan) 1 mg Q6H PRN PO Agitation Last administered on 01/15/17 05: 07; Admin Dose 1 MG; Start 01/10/17 at 13:30 Linezolid 600 mg 600 mg BID PO Last administered on 01/15/17 09:30; Admin Dose 600 MG; Start 01/10/17 at 15:00 Midazolam HCl 50 ml @ 1 mls/hr TITRATE IV ; Start 01/11/17 at 11:00 Meropenem (Merrem 500 Mg/ 100 ml (Pmx)) 100 ml @ 200 mls/hr Q24H IVPB Last administered on 01/14/17 13:54; Admin Dose 200 MLS/HR; Start 01/11/17 at 14:00 Midodrine (Proamatine) 5 mg BID@09,17 NGT Last administered on 01/15/17 09:34; Admin Dose 5 MG; Start 01/12/17 at 09:00 Escitalopram Oxalate (Lexapro) 10 mg DAILY GTB Last administered on 01/15/17 09 :29; Admin Dose 10 MG; Start 01/13/17 at 09:00 Lorazepam 0.5 mg 0.5 mg QHS PO Last administered on 01/14/17 20:53; Admin Dose 0.5 MG; Start 01/13/17 at 21:00 Norepinephrine (Levophed) 250 ml @ 1.875 mls/ hr TITRATE IV ; Start 01/15/17 at 08:00 Assessment/Plan Chief Complaint/Hosp Course Briefly, this is a 66-year-old female with a past medical history of breast cancer status post bilateral mastectomy in 1982 s/p prolonged hospital course recently at [place], [facility], and [facility], with ARDS leading to chronic resp failure s/p trach and PEG, complicated by C. difficile colitis, acute renal failure on dialysis and critical care polyneuropathy who now presents from SNF with hypoxemic resp failure requiring high FiO2. Problems: Additional Assessment/Plan IMP: 1. Acute on chronic hypoxemic respiratory failure possible component of worsening volume overload in addition to pneumonia 2. Septic Shock--query wound vs.urosepsis 3. VDRF 4. ESRD on HD status post hemodialysis today with volume removal 5. Anemia likely secondary to underlying renal disease RECS: 1. Decrease FiO2 80; increase PEEP 12 cm H2O 2. Levophed gtt to MAP > 65 mm Hg 3. Continue hemodialysis 4. continue antibiotics per ID 5. Follow lactate clearance 35 min cc time LEIDA LINARES MD Jan 15, 2017 12:19
--- NOTE | 2017-01-15 15:23 | CONS ---
Date/Time of Note Date/Time of Note DATE: 01/15/17 TIME: 15:22 Assessment/Plan Assessment/Plan Chief Complaint/Hosp Course No acute changes, remains on Levophed drip status post hemodialysis, looks comfortable Temperature 97.8 pulse 86 respirations 20 blood pressure 83/45 saturation 100 on vent WBC 8.4 H&H 8 point and 28.1 platelets 240 Indwelling's: Trach, PEG, permanent pacemaker, right chest permacath Antibiotics: Cancidas, Zyvox, Merrem Microbiology: Urine culture growing Dilcia glabrata, wound culture growing enterococcus and coag negative staph species Allergy: Erythromycin, vancomycin Physical examination: Chronically ill-appearing elderly woman who is in no distress. Head atraumatic normocephalic, sclera nonicteric, neck is supple, tracheostomy present. Chest rise symmetrical, breath sounds diminished basis. Heart S1-S2. Abdomen soft, bowel tones present. Extremities no cyanosis Assessment: 1. Acute on chronic Hypoxemic Resp Failure, possible pneumonia 2. UTI 3. VDRF 4. ESRD on HD 5. Sacral decubitus Plan: Remains hemodynamically unstable, continue antibiotics, local wound care, vent management per pulmonary recommendations Discussed with staff Problems: Consultation Date/Type/Reason Admit Date/Time Jan 07, 2017 at 12:43 Initial Consult Date 01/08/17 Type of Consultation: ID Referring Provider: YAYO EDGAR DO Exam/Review of Systems Vital Signs Vitals Vital Signs Date Time Temp Pulse Resp B/P Pulse Ox O2 Delivery O2 Flow Rate FiO2 01/15/17 14:45 69 01/15/17 13:40 21 96 100 01/15/17 11:30 99/50 01/15/17 08:00 97.8 01/15/17 06:30 Mechanical Ventilator Intake and Output 01/14/17 01/14/17 01/15/17 15:00 23:00 07:00 Intake Total 1590 ml 430 ml 475 ml Output Total 3000 ml Balance -1410 ml 430 ml 475 ml Results Result Diagram: 01/15/17 0425 01/15/17 0425 Results 24 hrs Laboratory Tests Test 01/14/17 17:43 01/15/17 00:47 01/15/17 04:25 01/15/17 06:31 Bedside Glucose 144 110 104 White Blood Count 8.4 Red Blood Count 3.00 L Hemoglobin 8.2 L Hematocrit 28.1 L Mean Corpuscular Volume 93.7 Mean Corpuscular Hemoglobin 27.3 L Mean Corpuscular Hemoglobin Concent 29.2 L Red Cell Distribution Width 20.3 H Platelet Count 246 Mean Platelet Volume 11.9 H Neutrophils % 72.0 Lymphocytes % 15.7 Monocytes % 6.4 Eosinophils % 5.0 Basophils % 0.4 Nucleated Red Blood Cells % 0.0 Neutrophils # 6.1 Lymphocytes # 1.3 Monocytes # 0.5 Eosinophils # 0.4 Basophils # 0.0 Nucleated Red Blood Cells # 0.0 Sodium Level 136 Potassium Level 3.2 L Chloride Level 98 Carbon Dioxide Level 27 Anion Gap 14 Blood Urea Nitrogen 41 H Creatinine 1.90 H Glucose Level 139 Calcium Level 9.7 Phosphorus Level 3.6 Magnesium Level 1.9 Total Bilirubin 0.2 Direct Bilirubin 0.00 Indirect Bilirubin 0.2 Aspartate Amino Transf (AST/SGOT) 18 Alanine Aminotransferase (ALT/SGPT) 19 Alkaline Phosphatase 78 Total Protein 8.7 H Albumin 4.5 Globulin 4.20 H Albumin/Globulin Ratio 1.07 Test 01/15/17 08:00 01/15/17 10:37 01/15/17 12:08 01/15/17 12:18 Blood Gas Specimen Source Blood arterial Arterial Blood Date Drawn 01/15/2017 8:10:32 AM Arterial Blood pH (Temp corrected) 7.397 Arterial Blood pCO2 (Temp correct) 45.4 H Arterial Blood pO2 (Temp corrected) 47.8 *L Arterial Blood HCO3 27.3 H Arterial Blood Base Excess 2.1 Arterial Blood Oxygen Saturation 80.8 L Ivan Test N/A Arterial Blood Gas Puncture Site Right Brachial Arterial Blood Carboxyhemoglobin 0.3 Arterial Blood Methemoglobin 0.2 Blood Gas A-a O2 Differential 619.8 H Oxyhemoglobin Percent 80.4 L Total Hemoglobin 9.0 L Blood Gas Temperature 37.0 Blood Gas Respiration Rate 16.0 Blood Gas Actual Respiration Rate 23 Blood Gas Modality VENT - AC FiO2 100.0 Blood Gas Tidal Volume 500.0 Blood Gas Low PEEP Setting 5.0 Blood Gas Critical Value Read Back HUSSAIN GUADALUPE Blood Gas Notified Whom CW Blood Gas Notified Time 01/15/2017 8:33:55 AM Lactic Acid Level 3.1 H Bedside Glucose 128 Troponin I 0.033 Medications Medications Current Medications Acetaminophen (Tylenol Liquid) 650 mg Q4H PRN GTB PAIN OR TEMP ABOVE 38C; Start 01/07/17 at 13:00 Amiodarone HCl (Cordarone) 200 mg DAILY GTB Last administered on 01/14/17 08:38 ; Admin Dose 200 MG; Start 01/07/17 at 13:00 Diphenhydramine HCl (Benadryl) 25 mg Q6H PRN GTB ITCHING Last administered on 06:23; Admin Dose 25 MG; Start 01/07/17 at 13:00 Multivit/Ca Carb/ B Cmplx/FA/Prenat (Macrina-Brigitte) 1 tab DAILY GTB Last administered on 01/15/17 09:30; Admin Dose 1 TAB; Start 01/08/17 at 09:00 Ondansetron HCl (Zofran Tab) 4 mg Q4H PRN GTB NAUSEA AND/OR VOMITING Last administered on 01/15/17 05:07; Admin Dose 4 MG; Start 01/07/17 at 13:00 Sodium Phosphate (Kphos Neutral) 250 mg BID GTB Last administered on 01/15/17 09:30; Admin Dose 250 MG; Start 01/07/17 at 21:00 Miscellaneous Information 1 ea NOTE XX ; Start 01/07/17 at 23:45 Glucose (Glutose) 15 gm Q15M PRN PO DECREASED GLUCOSE; Start 01/07/17 at 23:45 Glucose (Glutose) 22.5 gm Q15M PRN PO DECREASED GLUCOSE; Start 01/07/17 at 23:45 Dextrose (D50w Syringe) 25 ml Q15M PRN IV DECREASED GLUCOSE; Start 01/07/17 at 23:45 Dextrose (D50w Syringe) 50 ml Q15M PRN IV DECREASED GLUCOSE; Start 01/07/17 at 23:45 Glucagon (Glucagen) 1 mg Q15M PRN IM DECREASED GLUCOSE; Start 01/07/17 at 23:45 Glucose (Glutose) 15 gm Q15M PRN BUCCAL DECREASED GLUCOSE; Start 01/07/17 at 23: 45 Miscellaneous Information (Pending [facility] Order For Wound Care) This patient lopez... PRN PRN XX WOUND CARE; Start 01/08/17 at 07:30 Insulin Aspart NOVOLOG *MILD* ALGORI... Q6 SC Last administered on 01/14/17 17: 44; Admin Dose 1 UNIT; Start 01/08/17 at 12:00 Caspofungin/ Sodium Chloride (Cancidas/NS) 250 ml @ 250 mls/hr Q24H IVPB Last administered on 01/15/17 12:18; Admin Dose 250 MLS/HR; Start 01/09/17 at 12:00 Heparin Sodium (Porcine) (Heparin (5000 Units/0.5 ml)) 5,000 unit BID SC Last administered on 01/15/17 09:32; Admin Dose 5,000 UNIT; Start 01/10/17 at 21:00 Lorazepam (Ativan) 1 mg Q6H PRN PO Agitation Last administered on 01/15/17 05: 07; Admin Dose 1 MG; Start 01/10/17 at 13:30 Linezolid 600 mg 600 mg BID PO Last administered on 01/15/17 09:30; Admin Dose 600 MG; Start 01/10/17 at 15:00 Midazolam HCl 50 ml @ 1 mls/hr TITRATE IV ; Start 01/11/17 at 11:00 Meropenem (Merrem 500 Mg/ 100 ml (Pmx)) 100 ml @ 200 mls/hr Q24H IVPB Last administered on 01/14/17 13:54; Admin Dose 200 MLS/HR; Start 01/11/17 at 14:00 Midodrine (Proamatine) 5 mg BID@09,17 NGT Last administered on 01/15/17 09:34; Admin Dose 5 MG; Start 01/12/17 at 09:00 Escitalopram Oxalate (Lexapro) 10 mg DAILY GTB Last administered on 01/15/17 09 :29; Admin Dose 10 MG; Start 01/13/17 at 09:00 Lorazepam 0.5 mg 0.5 mg QHS PO Last administered on 01/14/17 20:53; Admin Dose 0.5 MG; Start 01/13/17 at 21:00 Norepinephrine 250 ml @ 1.875 mls/ hr TITRATE IV ; Start 01/15/17 at 08:00; Stop 01/15/17 at 23:00 Norepinephrine/ Dextrose (Levophed/D5W) 500 ml @ 1.87 mls/hr TITRATE IV ; Start 01/15/17 at 15:00 AI FUNEZ NP Jan 15, 2017 15:23
--- NOTE | 2017-01-15 16:04 | RADRPT ---
PROCEDURE: XR Chest. CLINICAL INDICATION: Shortness of breath. TECHNIQUE: Single frontal view. COMPARISON: 01/14/2017. FINDINGS: The right internal jugular vein tunneled dialysis catheter, tracheostomy tube, left-sided dual lead permanent pacemaker are all once again noted. Mild pulmonary edema is unchanged. The heart is mildly enlarged. Surgical clips are present in the left axilla. There is no pleural effusion. There is no pneumothorax. IMPRESSION: 1. No change from 01/14/2017. RPTAT: QQ .Jeff Ring MD, MD Date Time Electronically viewed and signed by .Jeff Ring MD, MD on 01/15/2017 16:04 .R/
[2017-01-15] MEDS: MEROPENEM 500 MG/100 ML (PMX) 100 ML IVPB SCH (17:05)
[2017-01-15] MEDS: EPOETIN 4000 UNITS/1 ML INJ (ESRD) SC SCH (17:07)
[2017-01-15] MEDS: LORAZEPAM 0.5 MG TAB PO SCH (21:08)
[2017-01-16] VITALS (105 sets, daily range): BP systolic 66–142; BP diastolic 26–93; PULSE 62–92; RESP 11–29
[2017-01-16] MEDS: ACETYLCYSTEINE 20% 4 ML VIAL NEB SCH ×4 (01:20→19:12)
[2017-01-16] MEDS: IPRATROPIUM (HFA) 12.9 GM INHALER INH SCH ×4 (01:20→19:11)
[2017-01-16] MEDS: ALBUTEROL 18 GM INHALER INH SCH ×4 (01:20→19:11)
[2017-01-16] MEDS: DIPHENHYDRAMINE 25 MG CAP GTB PRN (02:12)
[2017-01-16] MEDS: INSULIN ASPART [NOVOLOG] 3 ML PEN SC SCH ×4 (06:00→17:53)
[2017-01-16] MEDS: LANSOPRAZOLE 30 MG CAP GTB SCH (06:02)
[2017-01-16 06:24] LABS: ADD SCAN DIFF NO
[2017-01-16 06:40] LABS: BASOPHIL # 0.1 10^3/ul (0.0-0.1); BASOPHILS % 0.6 % (0.0-2.0); EOSINOPHILS # 0.3 10^3/ul (0.0-0.5); EOSINOPHILS % 3.5 % (0.0-7.0); HEMATOCRIT 31.5 % (37.0-47.0); HEMOGLOBIN 9.7 g/dl (12.0-16.0); LYMPHOCYTES # 1.8 10^3/ul (0.8-2.9); LYMPHOCYTES % 23.3 % (15.0-51.0); MEAN CORPUSCULAR HEMOGLOBIN 27.9 pg (29.0-33.0); MEAN CORPUSCULAR HGB CONC 30.8 g/dl (32.0-37.0); MEAN CORPUSCULAR VOLUME 90.5 fl (82.0-101.0); MEAN PLATELET VOLUME 11.9 fl (7.4-10.4); MONOCYTE # 0.7 10^3/ul (0.3-0.9); MONOCYTES % 9.1 % (0.0-11.0); NEUTROPHILS % 63.2 % (39.0-77.0); PLATELET COUNT 255 10^3/UL (140-415); RED BLOOD COUNT 3.48 10^6/ul (4.20-5.40); RED CELL DISTRIBUTION WIDTH 20.2 % (11.5-14.5); WHITE BLOOD COUNT 7.9 10^3/ul (4.8-10.8)
[2017-01-16 07:03] LABS: ALBUMIN 4.7 g/dl (3.3-4.9); ALBUMIN/GLOBULIN RATIO 0.95; BILIRUBIN,INDIRECT 0.6 mg/dl (0-1.1); BILIRUBIN,TOTAL 0.6 mg/dl (0.2-1.3); CREATININE 1.77 mg/dl (0.44-1.00); MAGNESIUM 1.7 mg/dl (1.7-2.5); PHOSPHORUS 5.3 mg/dl (2.5-4.9); TOTAL PROTEIN 9.6 g/dl (6.1-8.1)
[2017-01-16 08:32] LABS: AADO2 Arterial 360.3 mmHg (7.0-24.0); Allen Test ACCEPTAB; Arterial Base Excess -0.6 mmol/L (-3.0-3); Arterial COHb 0.6 % (0.0-3.0); Arterial Fraction of Oxyhgb 96.5 % (93.0-99.0); Arterial HCO3 23.9 mmol/L (22.0-26.0); Arterial MetHb 0.2 % (0.0-1.5); MODE VENT - AC
--- NOTE | 2017-01-16 09:34 | PN ---
Date/Time of Note Date/Time of Note DATE: 01/16/17 TIME: 09:30 Assessment/Plan VTE Prophylaxis VTE Prophylaxis Intervention: anti-embolic stocking, contraindicated Lines/Catheters IV C[facility]ter Type (from [facility]): [facility] Urinary Cath still in place: No Assessment/Plan Chief Complaint/Hosp Course 1. hypoxemic respiratory failure. etiology likely multifactorial, chf, ? pna,, ? Anxiety -CT angios showed interstitial edema pulmonary edema, no evidence of PE -Anxiety may be a contributing factor -Patient on FiO2 of 100%. plan -We will attempt daily dialysis for volume removal. If hemodynamically able to be tolerated -Follow-up with pulmonary -Monitor 2. septic shock Secondary to UTI, questionable pneumonia. Urinalysis positive for pyuria. Urine culture is positive yyeast. chest x-ray suggests possible infiltrate -Patient on pressure support, broad-spectrum antibiotics -Wean off pressors slowly Follow-up with infectious disease 3. Encephalopathy, acute. Etiology is likely secondary to toxic metabolic -Mental status appears to be improving continue to monitor 4. Dysphagia, status post percutaneous endoscopic gastrostomy. -Continue tube feeding. 5. ESRD -HD today 7. Atrial fibrillation, currently rate controlled. Continue medical management. -Off anticoagulation secondary to previous bleed - Continue beta louise. We will follow up with cardiology. 8. Anemia. Continue to monitor hemoglobin and hematocrit levels. Continue Epogen 9. Mineral bone disease. Continue to monitor calcium and phosphorus levels. 10. History of breast cancer status post bilateral mastectomy. 11. Congestive heart failure. Continue medical management. 12. Diabetes. Continue Accu-Cheks and sliding scale. 13. History of Clostridium difficile colitis, status post treatment. 14. Gastrointestinal and deep venous thrombosis prophylaxis. Continue Protonix , SCD, heparin 15. Hypokalemia replete with potassium chloride as needed 16. Anxiety disorder. Will start patient on Lexapro Please note I spent over 35 minutes critical care time with this patient Problems: Subjective 24 Hr Interval Summary Free Text/Dictation Patient critically ill. On pressors, on an FiO2 of 100% No other acute events are noted Exam/Review of Systems Vital Signs Vitals Vital Signs Date Time Temp Pulse Resp B/P Pulse Ox O2 Delivery O2 Flow Rate FiO2 01/16/17 09:11 77 17 96 100 01/16/17 06:15 122/73 Mechanical Ventilator 01/16/17 04:00 98.8 Intake and Output 01/15/17 01/15/17 01/16/17 15:00 23:00 07:00 Intake Total 0 ml 1658.125 ml 545.625 ml Output Total 3300 ml Balance 0 ml -1641.875 ml 545.625 ml Exam HEENT: Head is normocephalic. NECK: Supple. HEART: Irregular LUNGS: Show diminished breath sounds at base. ABDOMEN: Soft, nontender to palpation without rebound or guarding. EXTREMITIES: Negative for clubbing, cyanosis. Positive edema, diffuse anasarca DERMATOLOGIC: No rashes. MUSCULOSKELETAL: No joint effusions, . NEUROLOGIC: No change in exam. Results Result Diagram: 01/16/17 0555 01/16/17 0555 Results 24 hrs Laboratory Tests Test 01/15/17 10:37 01/15/17 12:08 01/15/17 12:18 01/15/17 17:02 Lactic Acid Level 3.1 H Bedside Glucose 128 115 Troponin I 0.033 Test 01/15/17 18:30 01/16/17 00:09 01/16/17 05:00 01/16/17 05:17 Troponin I 0.044 Bedside Glucose 100 Blood Gas Specimen Source Blood arterial Arterial Blood Date Drawn 01/16/2017 4:55:23 AM Arterial Blood pH (Temp corrected) 7.407 Arterial Blood pCO2 (Temp correct) 38.8 Arterial Blood pO2 (Temp corrected) 97.1 Arterial Blood HCO3 23.9 Arterial Blood Base Excess -0.6 Arterial Blood Oxygen Saturation 97.3 Ivan Test ACCEPTAB Arterial Blood Gas Puncture Site Left Radial Arterial Blood Carboxyhemoglobin 0.6 Arterial Blood Methemoglobin 0.2 Blood Gas A-a O2 Differential 360.3 H Oxyhemoglobin Percent 96.5 Total Hemoglobin 11.0 L Blood Gas Temperature 37.0 Blood Gas Respiration Rate 16.0 Blood Gas Actual Respiration Rate 27 Blood Gas Modality VENT - AC FiO2 70.0 Blood Gas Tidal Volume 500.0 Blood Gas Low PEEP Setting 12.0 Blood Gas Notified Whom RTR Blood Gas Notified Time 01/16/2017 5:42:32 AM Lab Scanned Report BLOOD TRANSFUSION Test 01/16/17 05:55 01/16/17 06:01 White Blood Count 7.9 Red Blood Count 3.48 L Hemoglobin 9.7 L Hematocrit 31.5 L Mean Corpuscular Volume 90.5 Mean Corpuscular Hemoglobin 27.9 L Mean Corpuscular Hemoglobin Concent 30.8 L Red Cell Distribution Width 20.2 H Platelet Count 255 Mean Platelet Volume 11.9 H Neutrophils % 63.2 Lymphocytes % 23.3 Monocytes % 9.1 Eosinophils % 3.5 Basophils % 0.6 Nucleated Red Blood Cells % 0.0 Neutrophils # 5.0 Lymphocytes # 1.8 Monocytes # 0.7 Eosinophils # 0.3 Basophils # 0.1 Nucleated Red Blood Cells # 0.0 Sodium Level 138 Potassium Level 4.0 Chloride Level 93 L Carbon Dioxide Level 25 Anion Gap 24 #H Blood Urea Nitrogen 34 H Creatinine 1.77 H Glucose Level 106 Lactic Acid Level 2.5 H Calcium Level 10.0 Phosphorus Level 5.3 H Magnesium Level 1.7 Total Bilirubin 0.6 Direct Bilirubin 0.00 Indirect Bilirubin 0.6 Aspartate Amino Transf (AST/SGOT) 23 Alanine Aminotransferase (ALT/SGPT) 14 Alkaline Phosphatase 78 Total Protein 9.6 H Albumin 4.7 Globulin 4.90 H Albumin/Globulin Ratio 0.95 Bedside Glucose 107 Medications Medications Current Medications Acetaminophen (Tylenol Liquid) 650 mg Q4H PRN GTB PAIN OR TEMP ABOVE 38C; Start 01/07/17 at 13:00 Amiodarone HCl (Cordarone) 200 mg DAILY GTB Last administered on 01/14/17 08:38 ; Admin Dose 200 MG; Start 01/07/17 at 13:00 Diphenhydramine HCl (Benadryl) 25 mg Q6H PRN GTB ITCHING Last administered on 02:12; Admin Dose 25 MG; Start 01/07/17 at 13:00 Multivit/Ca Carb/ B Cmplx/FA/Prenat (Macrina-Brigitte) 1 tab DAILY GTB Last administered on 01/15/17 09:30; Admin Dose 1 TAB; Start 01/08/17 at 09:00 Ondansetron HCl (Zofran Tab) 4 mg Q4H PRN GTB NAUSEA AND/OR VOMITING Last administered on 01/15/17 05:07; Admin Dose 4 MG; Start 01/07/17 at 13:00 Sodium Phosphate (Kphos Neutral) 250 mg BID GTB Last administered on 01/15/17 21:08; Admin Dose 250 MG; Start 01/07/17 at 21:00 Miscellaneous Information 1 ea NOTE XX ; Start 01/07/17 at 23:45 Glucose (Glutose) 15 gm Q15M PRN PO DECREASED GLUCOSE; Start 01/07/17 at 23:45 Glucose (Glutose) 22.5 gm Q15M PRN PO DECREASED GLUCOSE; Start 01/07/17 at 23:45 Dextrose (D50w Syringe) 25 ml Q15M PRN IV DECREASED GLUCOSE; Start 01/07/17 at 23:45 Dextrose (D50w Syringe) 50 ml Q15M PRN IV DECREASED GLUCOSE; Start 01/07/17 at 23:45 Glucagon (Glucagen) 1 mg Q15M PRN IM DECREASED GLUCOSE; Start 01/07/17 at 23:45 Glucose (Glutose) 15 gm Q15M PRN BUCCAL DECREASED GLUCOSE; Start 01/07/17 at 23: 45 Miscellaneous Information [facility] This patient lopez... PRN PRN XX WOUND CARE; Start 01/08/17 at 07:30 Insulin Aspart NOVOLOG *MILD* ALGORI... Q6 SC Last administered on 01/14/17 17: 44; Admin Dose 1 UNIT; Start 01/08/17 at 12:00 Caspofungin/ Sodium Chloride (Cancidas/NS) 250 ml @ 250 mls/hr Q24H IVPB Last administered on 01/15/17 12:18; Admin Dose 250 MLS/HR; Start 01/09/17 at 12:00 Heparin Sodium (Porcine) (Heparin (5000 Units/0.5 ml)) 5,000 unit BID SC Last administered on 01/15/17 21:09; Admin Dose 5,000 UNIT; Start 01/10/17 at 21:00 Lorazepam (Ativan) 1 mg Q6H PRN PO Agitation Last administered on 01/15/17 05: 07; Admin Dose 1 MG; Start 01/10/17 at 13:30 Linezolid 600 mg 600 mg BID PO Last administered on 01/15/17 21:08; Admin Dose 600 MG; Start 01/10/17 at 15:00 Midazolam HCl 50 ml @ 1 mls/hr TITRATE IV ; Start 01/11/17 at 11:00 Meropenem (Merrem 500 Mg/ 100 ml (Pmx)) 100 ml @ 200 mls/hr Q24H IVPB Last administered on 01/15/17 17:05; Admin Dose 200 MLS/HR; Start 01/11/17 at 14:00 Midodrine (Proamatine) 5 mg BID@09,17 NGT Last administered on 01/15/17 17:07; Admin Dose 5 MG; Start 01/12/17 at 09:00 Escitalopram Oxalate (Lexapro) 10 mg DAILY GTB Last administered on 01/15/17 09 :29; Admin Dose 10 MG; Start 01/13/17 at 09:00 Lorazepam 0.5 mg 0.5 mg QHS PO Last administered on 01/15/17 21:08; Admin Dose 0.5 MG; Start 01/13/17 at 21:00 Norepinephrine 16 mg/Dextrose 500 ml @ 1.87 mls/hr TITRATE IV ; Start 01/15/17 at 15:00 Norepinephrine 250 ml @ 1.875 mls/ hr TITRATE IV ; Start 01/15/17 at 19:00 Norepinephrine/ Dextrose (Levophed/D5W) 500 ml @ 1.87 mls/hr TITRATE IV ; Start 01/15/17 at 23:45 CHARLIE BUSBY DO Jan 16, 2017 09:34
[2017-01-16] MEDS: ZYVOX 600 MG TAB PO SCH ×2 (09:55→21:29)
[2017-01-16] MEDS: AMIODARONE 200 MG TAB GTB SCH (09:56)
[2017-01-16] MEDS: MULTIVIT/CA CARB/B CMPLX/FA TAB GTB SCH (09:56)
[2017-01-16] MEDS: MEROPENEM 500 MG/100 ML (PMX) 100 ML IVPB SCH (09:56)
[2017-01-16] MEDS: ESCITALOPRAM 10 MG TAB GTB SCH (09:56)
[2017-01-16] MEDS: SOD PHOS MONO/DIBAS 250 MG TAB GTB SCH ×2 (09:56→21:34)
[2017-01-16] MEDS: HEPARIN 5,000 UNIT/0.5 ML VIAL SC SCH ×2 (09:58→21:31)
[2017-01-16] MEDS: MIDODRINE 5 MG TAB NGT SCH ×2 (10:01→17:52)
--- NOTE | 2017-01-16 12:23 | CONS ---
Date/Time of Note Date/Time of Note DATE: 01/16/17 TIME: 12:22 Assessment/Plan Assessment/Plan Chief Complaint/Hosp Course No acute changes, patient is awake, looks comfortable, Levophed at 3 mcg Temperature 98.3 pulse 70 respirations 20 blood pressure 114/70 saturation 99 on 100 FiO2, PEEP 12 WBC 7.9 H&H 9.7 and 31.5 platelets 255 Indwelling's: Trach, PEG, permanent pacemaker, right chest permacath Antibiotics: Cancidas, Zyvox, Merrem Microbiology: Urine culture growing Dilcia glabrata, wound culture growing enterococcus and coag negative staph species Allergy: Erythromycin, vancomycin Physical examination: Chronically ill-appearing elderly woman who is in no distress. Head atraumatic normocephalic, sclera nonicteric, neck is supple, tracheostomy present. Chest rise symmetrical, breath sounds diminished basis. Heart S1-S2. Abdomen soft, bowel tones present. Extremities no cyanosis Assessment: 1. Acute on chronic Hypoxemic Resp Failure, possible pneumonia 2. UTI 3. VDRF 4. ESRD on HD 5. Sacral decubitus Plan: Remains hemodynamically unstable, Levophed being titrated down, continue antibiotics, local wound care, vent management per pulmonary recommendations Discussed with staff Problems: Consultation Date/Type/Reason Admit Date/Time Jan 07, 2017 at 12:43 Initial Consult Date 01/08/17 Type of Consultation: ID Referring Provider: YAYO EDGAR DO Exam/Review of Systems Vital Signs Vitals Vital Signs Date Time Temp Pulse Resp B/P Pulse Ox O2 Delivery O2 Flow Rate FiO2 01/16/17 11:37 70 19 99 100 01/16/17 10:00 114/70 Mechanical Ventilator 01/16/17 08:00 98.3 Intake and Output 01/15/17 01/15/17 01/16/17 15:00 23:00 07:00 Intake Total 0 ml 1658.125 ml 556.875 ml Output Total 3300 ml Balance 0 ml -1641.875 ml 556.875 ml Results Result Diagram: 01/16/17 0555 01/16/17 0555 Results 24 hrs Laboratory Tests Test 01/15/17 17:02 01/15/17 18:30 01/16/17 00:09 01/16/17 05:00 Bedside Glucose 115 100 Troponin I 0.044 Blood Gas Specimen Source Blood arterial Arterial Blood Date Drawn 01/16/2017 4:55:23 AM Arterial Blood pH (Temp corrected) 7.407 Arterial Blood pCO2 (Temp correct) 38.8 Arterial Blood pO2 (Temp corrected) 97.1 Arterial Blood HCO3 23.9 Arterial Blood Base Excess -0.6 Arterial Blood Oxygen Saturation 97.3 Ivan Test ACCEPTAB Arterial Blood Gas Puncture Site Left Radial Arterial Blood Carboxyhemoglobin 0.6 Arterial Blood Methemoglobin 0.2 Blood Gas A-a O2 Differential 360.3 H Oxyhemoglobin Percent 96.5 Total Hemoglobin 11.0 L Blood Gas Temperature 37.0 Blood Gas Respiration Rate 16.0 Blood Gas Actual Respiration Rate 27 Blood Gas Modality VENT - AC FiO2 70.0 Blood Gas Tidal Volume 500.0 Blood Gas Low PEEP Setting 12.0 Blood Gas Notified Whom RTR Blood Gas Notified Time 01/16/2017 5:42:32 AM Test 01/16/17 05:17 01/16/17 05:55 01/16/17 06:01 Lab Scanned Report BLOOD TRANSFUSION White Blood Count 7.9 Red Blood Count 3.48 L Hemoglobin 9.7 L Hematocrit 31.5 L Mean Corpuscular Volume 90.5 Mean Corpuscular Hemoglobin 27.9 L Mean Corpuscular Hemoglobin Concent 30.8 L Red Cell Distribution Width 20.2 H Platelet Count 255 Mean Platelet Volume 11.9 H Neutrophils % 63.2 Lymphocytes % 23.3 Monocytes % 9.1 Eosinophils % 3.5 Basophils % 0.6 Nucleated Red Blood Cells % 0.0 Neutrophils # 5.0 Lymphocytes # 1.8 Monocytes # 0.7 Eosinophils # 0.3 Basophils # 0.1 Nucleated Red Blood Cells # 0.0 Sodium Level 138 Potassium Level 4.0 Chloride Level 93 L Carbon Dioxide Level 25 Anion Gap 24 #H Blood Urea Nitrogen 34 H Creatinine 1.77 H Glucose Level 106 Lactic Acid Level 2.5 H Calcium Level 10.0 Phosphorus Level 5.3 H Magnesium Level 1.7 Total Bilirubin 0.6 Direct Bilirubin 0.00 Indirect Bilirubin 0.6 Aspartate Amino Transf (AST/SGOT) 23 Alanine Aminotransferase (ALT/SGPT) 14 Alkaline Phosphatase 78 Total Protein 9.6 H Albumin 4.7 Globulin 4.90 H Albumin/Globulin Ratio 0.95 Bedside Glucose 107 Medications Medications Current Medications Acetaminophen (Tylenol Liquid) 650 mg Q4H PRN GTB PAIN OR TEMP ABOVE 38C; Start 01/07/17 at 13:00 Amiodarone HCl (Cordarone) 200 mg DAILY GTB Last administered on 01/16/17 09: 56; Admin Dose 200 MG; Start 01/07/17 at 13:00 Diphenhydramine HCl (Benadryl) 25 mg Q6H PRN GTB ITCHING Last administered on 02:12; Admin Dose 25 MG; Start 01/07/17 at 13:00 Multivit/Ca Carb/ B Cmplx/FA/Prenat (Macrina-Brigitte) 1 tab DAILY GTB Last administered on 01/16/17 09:56; Admin Dose 1 TAB; Start 01/08/17 at 09:00 Ondansetron HCl (Zofran Tab) 4 mg Q4H PRN GTB NAUSEA AND/OR VOMITING Last administered on 01/15/17 05:07; Admin Dose 4 MG; Start 01/07/17 at 13:00 Sodium Phosphate (Kphos Neutral) 250 mg BID GTB Last administered on 01/16/17 09:56; Admin Dose 250 MG; Start 01/07/17 at 21:00 Miscellaneous Information 1 ea NOTE XX ; Start 01/07/17 at 23:45 Glucose (Glutose) 15 gm Q15M PRN PO DECREASED GLUCOSE; Start 01/07/17 at 23:45 Glucose (Glutose) 22.5 gm Q15M PRN PO DECREASED GLUCOSE; Start 01/07/17 at 23:45 Dextrose (D50w Syringe) 25 ml Q15M PRN IV DECREASED GLUCOSE; Start 01/07/17 at 23:45 Dextrose (D50w Syringe) 50 ml Q15M PRN IV DECREASED GLUCOSE; Start 01/07/17 at 23:45 Glucagon (Glucagen) 1 mg Q15M PRN IM DECREASED GLUCOSE; Start 01/07/17 at 23:45 Glucose (Glutose) 15 gm Q15M PRN BUCCAL DECREASED GLUCOSE; Start 01/07/17 at 23: 45 Miscellaneous Information ([facility]ending [facility] Care) This patient lopez... PRN PRN XX WOUND CARE; Start 01/08/17 at 07:30 Insulin Aspart NOVOLOG *MILD* ALGORI... Q6 SC Last administered on 01/14/17 17: 44; Admin Dose 1 UNIT; Start 01/08/17 at 12:00 Caspofungin/ Sodium Chloride (Cancidas/NS) 250 ml @ 250 mls/hr Q24H IVPB Last administered on 01/15/17 12:18; Admin Dose 250 MLS/HR; Start 01/09/17 at 12:00 Heparin Sodium (Porcine) (Heparin (5000 Units/0.5 ml)) 5,000 unit BID SC Last administered on 01/16/17 09:58; Admin Dose 5,000 UNIT; Start 01/10/17 at 21:00 Lorazepam (Ativan) 1 mg Q6H PRN PO Agitation Last administered on 01/15/17 05: 07; Admin Dose 1 MG; Start 01/10/17 at 13:30 Linezolid 600 mg 600 mg BID PO Last administered on 01/16/17 09:55; Admin Dose 600 MG; Start 01/10/17 at 15:00 Midazolam HCl 50 ml @ 1 mls/hr TITRATE IV ; Start 01/11/17 at 11:00 Meropenem (Merrem 500 Mg/ 100 ml (Pmx)) 100 ml @ 200 mls/hr Q24H IVPB Last administered on 01/16/17 09:56; Admin Dose 200 MLS/HR; Start 01/11/17 at 14:00 Midodrine (Proamatine) 5 mg BID@09,17 NGT Last administered on 01/16/17 10:01 ; Admin Dose 5 MG; Start 01/12/17 at 09:00 Escitalopram Oxalate (Lexapro) 10 mg DAILY GTB Last administered on 01/16/17 09:56; Admin Dose 10 MG; Start 01/13/17 at 09:00 Lorazepam 0.5 mg 0.5 mg QHS PO Last administered on 01/15/17 21:08; Admin Dose 0.5 MG; Start 01/13/17 at 21:00 Norepinephrine 16 mg/Dextrose 500 ml @ 1.87 mls/hr TITRATE IV ; Start 01/15/17 at 15:00 Norepinephrine 250 ml @ 1.875 mls/ hr TITRATE IV ; Start 01/15/17 at 19:00 Norepinephrine/ Dextrose (Levophed/D5W) 500 ml @ 1.87 mls/hr TITRATE IV ; Start 01/15/17 at 23:45 AI FUNEZ NP Jan 16, 2017 12:23
--- NOTE | 2017-01-16 12:30 | CONS ---
Date/Time of Note Date/Time of Note DATE: 01/16/17 TIME: 12:27 Consult Date/Type/Reason Admit Date/Time Jan 07, 2017 at 12:43 Initial Consult Date 01/08/17 Type of Consultation: Pulmonary ICU Ordering Provider: YAYO EDGAR DO Subjective Patient experienced worsening shortness of breath yesterday requiring increased FiO2 and PEEP. Objective Vital Signs Date Time Temp Pulse Resp B/P Pulse Ox O2 Delivery O2 Flow Rate FiO2 01/16/17 11:37 70 19 99 100 01/16/17 10:00 114/70 Mechanical Ventilator 01/16/17 08:00 98.3 Intake and Output 01/15/17 01/15/17 01/16/17 15:00 23:00 07:00 Intake Total 0 ml 1658.125 ml 556.875 ml Output Total 3300 ml Balance 0 ml -1641.875 ml 556.875 ml Exam PHYSICAL EXAMINATION GENERAL: Elderly lady on mechanical ventilation appears comfortable at rest opens eyes follows commands VITAL SIGNS: see below. HEENT: Pupils equal, round, and reactive to light. Tracheostomy site clean and intact. CARDIAC: S1, S2, 1/6 systolic ejection murmur CHEST: Diminished air entry bilaterally. ABDOMEN: Mildly distended. Bowel sounds present no guarding or rebound EXTREMITIES: No cyanosis, clubbing edema +1 NEUROLOGIC: Generalized weakness Results/Medications Result Diagram: 01/16/17 0555 01/16/17 0555 Results 24 hrs Laboratory Tests Test 01/15/17 17:02 01/15/17 18:30 01/16/17 00:09 01/16/17 05:00 Bedside Glucose 115 100 Troponin I 0.044 Blood Gas Specimen Source Blood arterial Arterial Blood Date Drawn 01/16/2017 4:55:23 AM Arterial Blood pH (Temp corrected) 7.407 Arterial Blood pCO2 (Temp correct) 38.8 Arterial Blood pO2 (Temp corrected) 97.1 Arterial Blood HCO3 23.9 Arterial Blood Base Excess -0.6 Arterial Blood Oxygen Saturation 97.3 Ivan Test ACCEPTAB Arterial Blood Gas Puncture Site Left Radial Arterial Blood Carboxyhemoglobin 0.6 Arterial Blood Methemoglobin 0.2 Blood Gas A-a O2 Differential 360.3 H Oxyhemoglobin Percent 96.5 Total Hemoglobin 11.0 L Blood Gas Temperature 37.0 Blood Gas Respiration Rate 16.0 Blood Gas Actual Respiration Rate 27 Blood Gas Modality VENT - AC FiO2 70.0 Blood Gas Tidal Volume 500.0 Blood Gas Low PEEP Setting 12.0 Blood Gas Notified Whom RTR Blood Gas Notified Time 01/16/2017 5:42:32 AM Test 01/16/17 05:17 01/16/17 05:55 01/16/17 06:01 Lab Scanned Report BLOOD TRANSFUSION White Blood Count 7.9 Red Blood Count 3.48 L Hemoglobin 9.7 L Hematocrit 31.5 L Mean Corpuscular Volume 90.5 Mean Corpuscular Hemoglobin 27.9 L Mean Corpuscular Hemoglobin Concent 30.8 L Red Cell Distribution Width 20.2 H Platelet Count 255 Mean Platelet Volume 11.9 H Neutrophils % 63.2 Lymphocytes % 23.3 Monocytes % 9.1 Eosinophils % 3.5 Basophils % 0.6 Nucleated Red Blood Cells % 0.0 Neutrophils # 5.0 Lymphocytes # 1.8 Monocytes # 0.7 Eosinophils # 0.3 Basophils # 0.1 Nucleated Red Blood Cells # 0.0 Sodium Level 138 Potassium Level 4.0 Chloride Level 93 L Carbon Dioxide Level 25 Anion Gap 24 #H Blood Urea Nitrogen 34 H Creatinine 1.77 H Glucose Level 106 Lactic Acid Level 2.5 H Calcium Level 10.0 Phosphorus Level 5.3 H Magnesium Level 1.7 Total Bilirubin 0.6 Direct Bilirubin 0.00 Indirect Bilirubin 0.6 Aspartate Amino Transf (AST/SGOT) 23 Alanine Aminotransferase (ALT/SGPT) 14 Alkaline Phosphatase 78 Total Protein 9.6 H Albumin 4.7 Globulin 4.90 H Albumin/Globulin Ratio 0.95 Bedside Glucose 107 Medications Current Medications Acetaminophen (Tylenol Liquid) 650 mg Q4H PRN GTB PAIN OR TEMP ABOVE 38C; Start 01/07/17 at 13:00 Amiodarone HCl (Cordarone) 200 mg DAILY GTB Last administered on 01/16/17 09: 56; Admin Dose 200 MG; Start 01/07/17 at 13:00 Diphenhydramine HCl (Benadryl) 25 mg Q6H PRN GTB ITCHING Last administered on 02:12; Admin Dose 25 MG; Start 01/07/17 at 13:00 Multivit/Ca Carb/ B Cmplx/FA/Prenat (Macrina-Brigitte) 1 tab DAILY GTB Last administered on 01/16/17 09:56; Admin Dose 1 TAB; Start 01/08/17 at 09:00 Ondansetron HCl (Zofran Tab) 4 mg Q4H PRN GTB NAUSEA AND/OR VOMITING Last administered on 01/15/17 05:07; Admin Dose 4 MG; Start 01/07/17 at 13:00 Sodium Phosphate (Kphos Neutral) 250 mg BID GTB Last administered on 01/16/17 09:56; Admin Dose 250 MG; Start 01/07/17 at 21:00 Miscellaneous Information 1 ea NOTE XX ; Start 01/07/17 at 23:45 Glucose (Glutose) 15 gm Q15M PRN PO DECREASED GLUCOSE; Start 01/07/17 at 23:45 Glucose (Glutose) 22.5 gm Q15M PRN PO DECREASED GLUCOSE; Start 01/07/17 at 23:45 Dextrose (D50w Syringe) 25 ml Q15M PRN IV DECREASED GLUCOSE; Start 01/07/17 at 23:45 Dextrose (D50w Syringe) 50 ml Q15M PRN IV DECREASED GLUCOSE; Start 01/07/17 at 23:45 Glucagon (Glucagen) 1 mg Q15M PRN IM DECREASED GLUCOSE; Start 01/07/17 at 23:45 Glucose (Glutose) 15 gm Q15M PRN BUCCAL DECREASED GLUCOSE; Start 01/07/17 at 23: 45 Miscellaneous Information (Pending [facility] Order For Wound Care) This patient lopez... PRN PRN XX WOUND CARE; Start 01/08/17 at 07:30 Insulin Aspart NOVOLOG *MILD* ALGORI... Q6 SC Last administered on 01/14/17 17: 44; Admin Dose 1 UNIT; Start 01/08/17 at 12:00 Caspofungin/ Sodium Chloride (Cancidas/NS) 250 ml @ 250 mls/hr Q24H IVPB Last administered on 01/15/17 12:18; Admin Dose 250 MLS/HR; Start 01/09/17 at 12:00 Heparin Sodium (Porcine) (Heparin (5000 Units/0.5 ml)) 5,000 unit BID SC Last administered on 01/16/17 09:58; Admin Dose 5,000 UNIT; Start 01/10/17 at 21:00 Lorazepam (Ativan) 1 mg Q6H PRN PO Agitation Last administered on 01/15/17 05: 07; Admin Dose 1 MG; Start 01/10/17 at 13:30 Linezolid 600 mg 600 mg BID PO Last administered on 01/16/17 09:55; Admin Dose 600 MG; Start 01/10/17 at 15:00 Midazolam HCl 50 ml @ 1 mls/hr TITRATE IV ; Start 01/11/17 at 11:00 Meropenem (Merrem 500 Mg/ 100 ml (Pmx)) 100 ml @ 200 mls/hr Q24H IVPB Last administered on 01/16/17 09:56; Admin Dose 200 MLS/HR; Start 01/11/17 at 14:00 Midodrine (Proamatine) 5 mg BID@09,17 NGT Last administered on 01/16/17 10:01 ; Admin Dose 5 MG; Start 01/12/17 at 09:00 Escitalopram Oxalate (Lexapro) 10 mg DAILY GTB Last administered on 01/16/17 09:56; Admin Dose 10 MG; Start 01/13/17 at 09:00 Lorazepam 0.5 mg 0.5 mg QHS PO Last administered on 01/15/17 21:08; Admin Dose 0.5 MG; Start 01/13/17 at 21:00 Norepinephrine 16 mg/Dextrose 500 ml @ 1.87 mls/hr TITRATE IV ; Start 01/15/17 at 15:00 Norepinephrine 250 ml @ 1.875 mls/ hr TITRATE IV ; Start 01/15/17 at 19:00 Norepinephrine/ Dextrose (Levophed/D5W) 500 ml @ 1.87 mls/hr TITRATE IV ; Start 01/15/17 at 23:45 Assessment/Plan Chief Complaint/Hosp Course IMP: 1. Acute on chronic hypoxemic respiratory failure possible component of worsening volume overload in addition to pneumonia. 2. UTI 3. VDRF 4. ESRD on HD status post hemodialysis today with volume removal 5. Anemia likely secondary to underlying renal disease RECS: 1. Decrease FiO2 and PEEP as needed 2. Continue pulmonary toilet 3. Continue hemodialysis with volume removal 4. continue antibiotics per ID 5. continue Mucomyst 6. Continue Ativan and Lexapro. Critical care time 40 minutes Problems: RHONDA BUENROSTRO MD, [facility] Jan 16, 2017 12:29
[2017-01-16] MEDS: CASPOFUNGIN 50 MG in SOD CHLORIDE 0.9% 250 ML IVPB SCH (13:58)
--- NOTE | 2017-01-16 19:25 | PN ---
Date/Time of Note Date/Time of Note DATE: 01/16/17 TIME: 19:23 Assessment/Plan VTE Prophylaxis VTE Prophylaxis Intervention: other Lines/Catheters IV [facility] Type [facility]from [facility] Saline Lock Urinary Cath still in place: No Assessment/Plan Chief Complaint/Hosp Course 1. acute on chronic hypoxemic hypercapnic respiratory failure: s/p trach: vent dep. now with severe hypoxemia 2. Pafib; currently remains in NSR 3. HX Sick sinus syndrome: s/p PPM: pacemaker was interrogated and personally reviewed on 01/08/17 with normal functioning pacemaker. 4. pneumonia 5. ESRD on HD 6. HX HTN: stable now 7. severe anemia: s/p multiple transfusion 8. severe hypoxemia 9. SHOCK: CURRENTLY ON levophed drip. cont vent support not anticoagulated due to concerns about bleeding and severe anemia. abx as per IM/ ID and pulm team CONT HD HR has remained stable. BP is currently stable but will monitor closely correct lytes prn transfusion prn WILL DC AMIODARONE due to severe hypoxemia, specially since pt has remained in NSR. cont ICU care more than 39 minutes of critical care time was spent in management and treatment of this critically ill pt, excluding any procedures. Problems: Subjective 24 Hr Interval Summary Free Text/Dictation d/w staff and rhythm was reviewed. pt remains in NSR. no afib EVENTS noted. pt still with severe hypoxemia and on 100% O2 now + PEEP 12 pt with no chest pain. OBJECTIVE. General: s/p trach on vent. in mild distress HEENT: NC/AT. pupils are equal. round. NECK: s/p trach. no stridor. CV: RRR. systolic murmur; no gallop or rubs. PULM: no wheezing but + rhonchi anteriorly GI: SOFT, NT, ND, no rebound or guarding . s/p PEG Extremity: trace B/L LE edema. no clubbing. neuro: awake and alert responds appropriately Psych: anxious but pleasant rectal: deferred Derm: + echymosis Exam/Review of Systems Vital Signs Vitals Vital Signs Date Time Temp Pulse Resp B/P Pulse Ox O2 Delivery O2 Flow Rate FiO2 01/16/17 17:32 70 16 99 100 01/16/17 10:00 114/70 Mechanical Ventilator 01/16/17 08:00 98.3 Intake and Output 01/15/17 01/15/17 01/16/17 15:00 23:00 07:00 Intake Total 0 ml 1658.125 ml 556.875 ml Output Total 3300 ml Balance 0 ml -1641.875 ml 556.875 ml Results Result Diagram: 01/16/17 0555 01/16/17 0555 Results 24 hrs Laboratory Tests Test 01/16/17 00:09 01/16/17 05:00 01/16/17 05:17 01/16/17 05:55 Bedside Glucose 100 Blood Gas Specimen Source Blood arterial Arterial Blood Date Drawn 01/16/2017 4:55:23 AM Arterial Blood pH (Temp corrected) 7.407 Arterial Blood pCO2 (Temp correct) 38.8 Arterial Blood pO2 (Temp corrected) 97.1 Arterial Blood HCO3 23.9 Arterial Blood Base Excess -0.6 Arterial Blood Oxygen Saturation 97.3 Ivan Test ACCEPTAB Arterial Blood Gas Puncture Site Left Radial Arterial Blood Carboxyhemoglobin 0.6 Arterial Blood Methemoglobin 0.2 Blood Gas A-a O2 Differential 360.3 H Oxyhemoglobin Percent 96.5 Total Hemoglobin 11.0 L Blood Gas Temperature 37.0 Blood Gas Respiration Rate 16.0 Blood Gas Actual Respiration Rate 27 Blood Gas Modality VENT - AC FiO2 70.0 Blood Gas Tidal Volume 500.0 Blood Gas Low PEEP Setting 12.0 Blood Gas Notified Whom RTR Blood Gas Notified Time 01/16/2017 5:42:32 AM Lab Scanned Report BLOOD TRANSFUSION White Blood Count 7.9 Red Blood Count 3.48 L Hemoglobin 9.7 L Hematocrit 31.5 L Mean Corpuscular Volume 90.5 Mean Corpuscular Hemoglobin 27.9 L Mean Corpuscular Hemoglobin Concent 30.8 L Red Cell Distribution Width 20.2 H Platelet Count 255 Mean Platelet Volume 11.9 H Neutrophils % 63.2 Lymphocytes % 23.3 Monocytes % 9.1 Eosinophils % 3.5 Basophils % 0.6 Nucleated Red Blood Cells % 0.0 Neutrophils # 5.0 Lymphocytes # 1.8 Monocytes # 0.7 Eosinophils # 0.3 Basophils # 0.1 Nucleated Red Blood Cells # 0.0 Sodium Level 138 Potassium Level 4.0 Chloride Level 93 L Carbon Dioxide Level 25 Anion Gap 24 #H Blood Urea Nitrogen 34 H Creatinine 1.77 H Glucose Level 106 Lactic Acid Level 2.5 H Calcium Level 10.0 Phosphorus Level 5.3 H Magnesium Level 1.7 Total Bilirubin 0.6 Direct Bilirubin 0.00 Indirect Bilirubin 0.6 Aspartate Amino Transf (AST/SGOT) 23 Alanine Aminotransferase (ALT/SGPT) 14 Alkaline Phosphatase 78 Total Protein 9.6 H Albumin 4.7 Globulin 4.90 H Albumin/Globulin Ratio 0.95 Test 01/16/17 06:01 01/16/17 13:52 01/16/17 17:50 Bedside Glucose 107 133 102 Medications Medications Current Medications Acetaminophen (Tylenol Liquid) 650 mg Q4H PRN GTB PAIN OR TEMP ABOVE 38C; Start 01/07/17 at 13:00 Amiodarone HCl (Cordarone) 200 mg DAILY GTB Last administered on 01/16/17 09: 56; Admin Dose 200 MG; Start 01/07/17 at 13:00 Diphenhydramine HCl (Benadryl) 25 mg Q6H PRN GTB ITCHING Last administered on 02:12; Admin Dose 25 MG; Start 01/07/17 at 13:00 Multivit/Ca Carb/ B Cmplx/FA/Prenat (Macrina-Brigitte) 1 tab DAILY GTB Last administered on 01/16/17 09:56; Admin Dose 1 TAB; Start 01/08/17 at 09:00 Ondansetron HCl (Zofran Tab) 4 mg Q4H PRN GTB NAUSEA AND/OR VOMITING Last administered on 01/15/17 05:07; Admin Dose 4 MG; Start 01/07/17 at 13:00 Sodium Phosphate (Kphos Neutral) 250 mg BID GTB Last administered on 01/16/17 09:56; Admin Dose 250 MG; Start 01/07/17 at 21:00 Miscellaneous Information 1 ea NOTE XX ; Start 01/07/17 at 23:45 Glucose (Glutose) 15 gm Q15M PRN PO DECREASED GLUCOSE; Start 01/07/17 at 23:45 Glucose (Glutose) 22.5 gm Q15M PRN PO DECREASED GLUCOSE; Start 01/07/17 at 23:45 Dextrose (D50w Syringe) 25 ml Q15M PRN IV DECREASED GLUCOSE; Start 01/07/17 at 23:45 Dextrose (D50w Syringe) 50 ml Q15M PRN IV DECREASED GLUCOSE; Start 01/07/17 at 23:45 Glucagon (Glucagen) 1 mg Q15M PRN IM DECREASED GLUCOSE; Start 01/07/17 at 23:45 Glucose (Glutose) 15 gm Q15M PRN BUCCAL DECREASED GLUCOSE; Start 01/07/17 at 23: 45 Miscellaneous Information (Pending [facility] Order For Wound Care) This patient lopez... PRN PRN XX WOUND CARE; Start 01/08/17 at 07:30 Insulin Aspart NOVOLOG *MILD* ALGORI... Q6 SC Last administered on 01/14/17 17: 44; Admin Dose 1 UNIT; Start 01/08/17 at 12:00 Caspofungin/ Sodium Chloride (Cancidas/NS) 250 ml @ 250 mls/hr Q24H IVPB Last administered on 01/16/17 13:58; Admin Dose 250 MLS/HR; Start 01/09/17 at 12:00 Heparin Sodium (Porcine) (Heparin (5000 Units/0.5 ml)) 5,000 unit BID SC Last administered on 01/16/17 09:58; Admin Dose 5,000 UNIT; Start 01/10/17 at 21:00 Lorazepam (Ativan) 1 mg Q6H PRN PO Agitation Last administered on 01/15/17 05: 07; Admin Dose 1 MG; Start 01/10/17 at 13:30 Linezolid 600 mg 600 mg BID PO Last administered on 01/16/17 09:55; Admin Dose 600 MG; Start 01/10/17 at 15:00 Midazolam HCl 50 ml @ 1 mls/hr TITRATE IV ; Start 01/11/17 at 11:00 Meropenem (Merrem 500 Mg/ 100 ml (Pmx)) 100 ml @ 200 mls/hr Q24H IVPB Last administered on 01/16/17 09:56; Admin Dose 200 MLS/HR; Start 01/11/17 at 14:00 Midodrine (Proamatine) 5 mg BID@,17 NGT Last administered on 01/16/17 17:52 ; Admin Dose 5 MG; Start 01/12/17 at 09:00 Escitalopram Oxalate 10 mg 10 mg DAILY GTB Last administered on 01/16/17 09:56 ; Admin Dose 10 MG; Start 7/7/17 at 09:00 Norepinephrine 250 ml @ 1.875 mls/ hr TITRATE IV ; Start 01/15/17 at 19:00 Norepinephrine/ Dextrose (Levophed/D5W) 500 ml @ 1.87 mls/hr TITRATE IV ; Start 01/15/17 at 23:45 KIAH GARCIA MD Jan 16, 2017 19:25
[2017-01-17] VITALS (102 sets, daily range): BP systolic 73–148; BP diastolic 44–77; PULSE 64–83; RESP 8–50
[2017-01-17] MEDS: INSULIN ASPART [NOVOLOG] 3 ML PEN SC SCH ×5 (00:11→20:47)
[2017-01-17] MEDS: ALBUTEROL 18 GM INHALER INH SCH ×4 (01:06→19:03)
[2017-01-17] MEDS: IPRATROPIUM (HFA) 12.9 GM INHALER INH SCH ×4 (01:06→19:03)
[2017-01-17] MEDS: ACETYLCYSTEINE 20% 4 ML VIAL NEB SCH ×4 (01:07→19:04)
[2017-01-17] MEDS ORDERED: DOPamine-D5W 1.6 MG/ML 250 ML ONE (01:33)
[2017-01-17] MEDS: EPOETIN 4000 UNITS/1 ML INJ (ESRD) SC SCH (05:36)
[2017-01-17 05:46] LABS: ADD SCAN DIFF NO
[2017-01-17 05:48] LABS: BASOPHIL # 0.1 10^3/ul (0.0-0.1); BASOPHILS % 0.4 % (0.0-2.0); EOSINOPHILS # 0.6 10^3/ul (0.0-0.5); EOSINOPHILS % 5.1 % (0.0-7.0); HEMATOCRIT 33.2 % (37.0-47.0); LYMPHOCYTES # 1.9 10^3/ul (0.8-2.9); LYMPHOCYTES % 15.2 % (15.0-51.0); MEAN CORPUSCULAR HEMOGLOBIN 27.9 pg (29.0-33.0); MEAN CORPUSCULAR HGB CONC 30.1 g/dl (32.0-37.0); MEAN CORPUSCULAR VOLUME 92.5 fl (82.0-101.0); MEAN PLATELET VOLUME 11.9 fl (7.4-10.4); MONOCYTE # 1.2 10^3/ul (0.3-0.9); MONOCYTES % 9.4 % (0.0-11.0); NEUTROPHIL # 8.5 10^3/ul (1.6-7.5); NEUTROPHILS % 69.5 % (39.0-77.0); PLATELET COUNT 238 10^3/UL (140-415); RED BLOOD COUNT 3.59 10^6/ul (4.20-5.40); RED CELL DISTRIBUTION WIDTH 19.9 % (11.5-14.5); WHITE BLOOD COUNT 12.2 10^3/ul (4.8-10.8)
[2017-01-17] MEDS: LANSOPRAZOLE 30 MG CAP GTB SCH (06:10)
[2017-01-17 06:21] LABS: CALCIUM 10.2 mg/dl (8.4-10.2); CREATININE 2.09 mg/dl (0.44-1.00); PHOSPHORUS 5.6 mg/dl (2.5-4.9); POTASSIUM 3.3 mmol/L (3.5-5.1)
[2017-01-17 08:07] LABS: AADO2 Arterial 481.9 mmHg (7.0-24.0); Allen Test ACCEPTAB; Arterial Base Excess -1.8 mmol/L (-3.0-3); Arterial COHb 0.4 % (0.0-3.0); Arterial Fraction of Oxyhgb 97.3 % (93.0-99.0); Arterial HCO3 23.8 mmol/L (22.0-26.0); Arterial MetHb 0.4 % (0.0-1.5); Arterial Total Hemglobin 11.2 g/dl (12.0-18.0); MODE VENT - AC
--- NOTE | 2017-01-17 09:17 | RADRPT ---
PROCEDURE: XR Chest 1 View. CLINICAL INDICATION: Shortness of breath. TECHNIQUE: AP view of the chest was obtained. COMPARISON: January 15, 2017 FINDINGS: The heart size is within normal limits. Calcified atherosclerosis is noted in the aorta. Tracheosto my tube is stable and appears in grossly appropriate location. Left-sided dual chamber pacemaker lopez s its leads over the heart and appears grossly stable. Right-sided dialysis catheter is unchanged. The lungs are hypoinflated. Patchy right lower lobe infiltrates are unchanged. Diffuse mild inter stitial prominence in both lungs appears stable. The osseous structures are osteopenic, but appear g rossly intact. Surgical clips are identified over the left axilla. IMPRESSION: Calcified atherosclerosis in the aorta. Stable patchy infiltrates in the right lower lobe. Stable diffuse mild interstitial prominence in both lungs. Interstitial prominence could be chronic . Hypoinflated lungs. RPTAT: AA .Henry Flores MD, Date Time Electronically viewed and signed by .Henry Flores MD, on 01/17/2017 09:16 .P/
--- NOTE | 2017-01-17 09:42 | PN ---
Date/Time of Note Date/Time of Note DATE: 01/17/17 TIME: 09:41 Assessment/Plan VTE Prophylaxis VTE Prophylaxis Intervention: other Lines/Catheters [facility] Urinary Cath still in place: No Assessment/Plan Chief Complaint/Hosp Course 1. hypoxemic respiratory failure. etiology likely multifactorial, chf, ? pna,, ? Anxiety -CT angios showed interstitial edema pulmonary edema, no evidence of PE FiO2 of 90% plan -We will attempt daily dialysis for volume removal. If hemodynamically able to be tolerated -Follow-up with pulmonary -Monitor 2. septic shock Secondary to UTI, questionable pneumonia. Urinalysis positive for pyuria. Urine culture is positive yeast. chest x-ray suggests possible infiltrate -Patient on pressure support, broad-spectrum antibiotics -Wean off pressors slowly Follow-up with infectious disease 3. Encephalopathy, acute. Etiology is likely secondary to toxic metabolic -Mental status appears to be improving continue to monitor 4. Dysphagia, status post percutaneous endoscopic gastrostomy. -Continue tube feeding. 5. ESRD -HD today 7. Atrial fibrillation, currently rate controlled. Continue medical management. -Off anticoagulation secondary to previous bleed - Continue beta louise. We will follow up with cardiology. 8. Anemia. Continue to monitor hemoglobin and hematocrit levels. Continue Epogen 9. Mineral bone disease. Continue to monitor calcium and phosphorus levels. 10. History of breast cancer status post bilateral mastectomy. 11. Congestive heart failure. Continue medical management. 12. Diabetes. Continue Accu-Cheks and sliding scale. 13. History of Clostridium difficile colitis, status post treatment. 14. Gastrointestinal and deep venous thrombosis prophylaxis. Continue Protonix , SCD, heparin 15. Hypokalemia replete with potassium chloride as needed 16. Anxiety disorder. Will start patient on Lexapro 17. Hypokalemia. Replete potassium chloride Please note I spent over 35 minutes critical care time with this patient Problems: Subjective 24 Hr Interval Summary Free Text/Dictation Patient critical but stable Remains on pressor support Planning for hemodialysis today Exam/Review of Systems Vital Signs Vitals Vital Signs Date Time Temp Pulse Resp B/P Pulse Ox O2 Delivery O2 Flow Rate FiO2 01/17/17 08:00 79 01/17/17 07:00 10 98/58 98 Mechanical Ventilator 01/17/17 04:55 90 01/17/17 04:00 98.8 Intake and Output 7/04/2501/16/17 01/17/17 14:59 22:59 06:59 Intake Total 1307.225 ml 918.127 ml 472.815 ml Output Total 2500 ml Balance -1192.775 ml 918.127 ml 472.815 ml Exam HEENT: Head is normocephalic. NECK: Supple. HEART: Irregular LUNGS: Show diminished breath sounds at base. ABDOMEN: Soft, nontender to palpation without rebound or guarding. EXTREMITIES: Negative for clubbing, cyanosis. DERMATOLOGIC: No rashes. MUSCULOSKELETAL: No joint effusions, . NEUROLOGIC: No change in exam. Results Result Diagram: 01/17/17 0530 01/17/17 0530 Results 24 hrs Laboratory Tests Test 01/16/17 13:52 01/16/17 17:50 01/17/17 00:09 01/17/17 05:30 Bedside Glucose 133 102 142 White Blood Count 12.2 #H Red Blood Count 3.59 L Hemoglobin 10.0 L Hematocrit 33.2 L Mean Corpuscular Volume 92.5 Mean Corpuscular Hemoglobin 27.9 L Mean Corpuscular Hemoglobin Concent 30.1 L Red Cell Distribution Width 19.9 H Platelet Count 238 Mean Platelet Volume 11.9 H Neutrophils % 69.5 Lymphocytes % 15.2 Monocytes % 9.4 Eosinophils % 5.1 Basophils % 0.4 Nucleated Red Blood Cells % 0.0 Neutrophils # 8.5 H Lymphocytes # 1.9 Monocytes # 1.2 H Eosinophils # 0.6 H Basophils # 0.1 Nucleated Red Blood Cells # 0.0 Sodium Level 146 H Potassium Level 3.3 L Chloride Level 101 Carbon Dioxide Level 27 Anion Gap 21 H Blood Urea Nitrogen 45 #H Creatinine 2.09 H Glucose Level 136 Calcium Level 10.2 Phosphorus Level 5.6 H Magnesium Level 2.0 Test 01/17/17 06:09 01/17/17 07:00 Bedside Glucose 178 Blood Gas Specimen Source Blood arterial Arterial Blood Date Drawn 01/17/2017 7:40:07 AM Arterial Blood pH (Temp corrected) 7.352 Arterial Blood pCO2 (Temp correct) 43.9 Arterial Blood pO2 (Temp corrected) 114.8 H Arterial Blood HCO3 23.8 Arterial Blood Base Excess -1.8 Arterial Blood Oxygen Saturation 98.1 H Ivan Test ACCEPTAB Arterial Blood Gas Puncture Site Right Radial Arterial Blood Carboxyhemoglobin 0.4 Arterial Blood Methemoglobin 0.4 Blood Gas A-a O2 Differential 481.9 H Oxyhemoglobin Percent 97.3 Total Hemoglobin 11.2 L Blood Gas Temperature 37.0 Blood Gas Respiration Rate 16.0 Blood Gas Actual Respiration Rate 16 Blood Gas Modality VENT - AC FiO2 90.0 Blood Gas Tidal Volume 500.0 Blood Gas Low PEEP Setting 12.0 Blood Gas Notified Whom JLD Blood Gas Notified Time 01/17/2017 8:07:50 AM Medications Medications Current Medications Acetaminophen (Tylenol Liquid) 650 mg Q4H PRN GTB PAIN OR TEMP ABOVE 38C; Start 01/07/17 at 13:00 Diphenhydramine HCl (Benadryl) 25 mg Q6H PRN GTB ITCHING Last administered on 02:12; Admin Dose 25 MG; Start 01/07/17 at 13:00 Multivit/Ca Carb/ B Cmplx/FA/Prenat (Macrina-Brigitte) 1 tab DAILY GTB Last administered on 01/16/17 09:56; Admin Dose 1 TAB; Start 01/08/17 at 09:00 Ondansetron HCl (Zofran Tab) 4 mg Q4H PRN GTB NAUSEA AND/OR VOMITING Last administered on 01/15/17 05:07; Admin Dose 4 MG; Start 01/07/17 at 13:00 Sodium Phosphate (Kphos Neutral) 250 mg BID GTB Last administered on 01/16/17 21:34; Admin Dose 250 MG; Start 01/07/17 at 21:00 Miscellaneous Information 1 ea NOTE XX ; Start 01/07/17 at 23:45 Glucose (Glutose) 15 gm Q15M PRN PO DECREASED GLUCOSE; Start 01/07/17 at 23:45 Glucose (Glutose) 22.5 gm Q15M PRN PO DECREASED GLUCOSE; Start 01/07/17 at 23:45 Dextrose (D50w Syringe) 25 ml Q15M PRN IV DECREASED GLUCOSE; Start 01/07/17 at 23:45 Dextrose (D50w Syringe) 50 ml Q15M PRN IV DECREASED GLUCOSE; Start 01/07/17 at 23:45 Glucagon (Glucagen) 1 mg Q15M PRN IM DECREASED GLUCOSE; Start 01/07/17 at 23:45 Glucose (Glutose) 15 gm Q15M PRN BUCCAL DECREASED GLUCOSE; Start 01/07/17 at 23: 45 Miscellaneous Information (Pending [facility] Order For Wound Care) This patient lopez... PRN PRN XX WOUND CARE; Start 01/08/17 at 07:30 Insulin Aspart NOVOLOG *MILD* ALGORI... Q6 SC Last administered on 01/17/17 06 :11; Admin Dose 1 UNIT; Start 01/08/17 at 12:00 Caspofungin/ Sodium Chloride (Cancidas/NS) 250 ml @ 250 mls/hr Q24H IVPB Last administered on 01/16/17 13:58; Admin Dose 250 MLS/HR; Start 01/09/17 at 12:00 Heparin Sodium (Porcine) (Heparin (5000 Units/0.5 ml)) 5,000 unit BID SC Last administered on 01/16/17 21:31; Admin Dose 5,000 UNIT; Start 01/10/17 at 21:00 Lorazepam (Ativan) 1 mg Q6H PRN PO Agitation Last administered on 01/15/17 05: 07; Admin Dose 1 MG; Start 01/10/17 at 13:30 Linezolid 600 mg 600 mg BID PO Last administered on 01/16/17 21:29; Admin Dose 600 MG; Start 01/10/17 at 15:00 Midazolam HCl 50 ml @ 1 mls/hr TITRATE IV ; Start 01/11/17 at 11:00 Meropenem (Merrem 500 Mg/ 100 ml (Pmx)) 100 ml @ 200 mls/hr Q24H IVPB Last administered on 01/16/17 09:56; Admin Dose 200 MLS/HR; Start 01/11/17 at 14:00 Midodrine (Proamatine) 5 mg BID@09,17 NGT Last administered on 01/16/17 17:52 ; Admin Dose 5 MG; Start 01/12/17 at 09:00 Escitalopram Oxalate 10 mg 10 mg DAILY GTB Last administered on 01/16/17 09:56 ; Admin Dose 10 MG; Start 01/13/17 at 09:00 Norepinephrine 250 ml @ 1.875 mls/ hr TITRATE IV Last administered on 20:00; Admin Dose 2.813 MLS/HR; Start 01/15/17 at 19:00 Norepinephrine/ Dextrose (Levophed/D5W) 500 ml @ 1.87 mls/hr TITRATE IV ; Start 01/15/17 at 23:45 CHARLIE BUSBY DO Jan 17, 2017 09:42
[2017-01-17] MEDS: SOD PHOS MONO/DIBAS 250 MG TAB GTB SCH (09:52)
[2017-01-17] MEDS: ESCITALOPRAM 10 MG TAB GTB SCH (09:52)
[2017-01-17] MEDS: ZYVOX 600 MG TAB PO SCH ×2 (09:52→20:45)
[2017-01-17] MEDS: MULTIVIT/CA CARB/B CMPLX/FA TAB GTB SCH (09:52)
[2017-01-17] MEDS: HEPARIN 5,000 UNIT/0.5 ML VIAL SC SCH ×2 (09:53→20:48)
[2017-01-17] MEDS: MIDODRINE 5 MG TAB NGT SCH ×2 (09:55→18:31)
[2017-01-17] MEDS ORDERED: POTASSIUM CHLORIDE 20 MEQ POWDER FOR ORAL SOLN GTB ONE (10:00)
--- NOTE | 2017-01-17 11:20 | CONS ---
Date/Time of Note Date/Time of Note DATE: 01/17/17 TIME: 11:18 Consult Date/Type/Reason Admit Date/Time Jan 07, 2017 at 12:43 Initial Consult Date 01/08/17 Type of Consultation: Pulmonary ICU Ordering Provider: YAYO EDGAR DO Subjective Patient remains stable this morning she continues FiO2 at 90% with a PEEP of 12. She is awake alert with intermittent agitation. Currently hemodynamically stable. Objective Vital Signs Date Time Temp Pulse Resp B/P Pulse Ox O2 Delivery O2 Flow Rate FiO2 01/17/17 10:15 80 17 93/75 99 01/17/17 10:00 Mechanical Ventilator 01/17/17 08:00 98.5 01/17/17 08:00 90 Intake and Output 01/16/17 01/16/17 01/17/17 14:59 22:59 06:59 Intake Total 1307.225 ml 918.127 ml 472.815 ml Output Total 2500 ml Balance -1192.775 ml 918.127 ml 472.815 ml Exam PHYSICAL EXAMINATION GENERAL: Elderly lady on mechanical ventilation appears comfortable at rest opens eyes follows commands VITAL SIGNS: see below. HEENT: Pupils equal, round, and reactive to light. Tracheostomy site clean and intact. CARDIAC: S1, S2, 1/6 systolic ejection murmur CHEST: Diminished air entry bilaterally. ABDOMEN: Mildly distended. Bowel sounds present no guarding or rebound EXTREMITIES: No cyanosis, clubbing edema +1 NEUROLOGIC: Generalized weakness Results/Medications Result Diagram: 01/17/17 0530 01/17/17 0530 Results 24 hrs Chest x-ray Mild pulmonary edema right upper lobe infiltrate. Laboratory Tests Test 01/16/17 13:52 01/16/17 17:50 01/17/17 00:09 01/17/17 05:30 Bedside Glucose 133 102 142 White Blood Count 12.2 #H Red Blood Count 3.59 L Hemoglobin 10.0 L Hematocrit 33.2 L Mean Corpuscular Volume 92.5 Mean Corpuscular Hemoglobin 27.9 L Mean Corpuscular Hemoglobin Concent 30.1 L Red Cell Distribution Width 19.9 H Platelet Count 238 Mean Platelet Volume 11.9 H Neutrophils % 69.5 Lymphocytes % 15.2 Monocytes % 9.4 Eosinophils % 5.1 Basophils % 0.4 Nucleated Red Blood Cells % 0.0 Neutrophils # 8.5 H Lymphocytes # 1.9 Monocytes # 1.2 H Eosinophils # 0.6 H Basophils # 0.1 Nucleated Red Blood Cells # 0.0 Sodium Level 146 H Potassium Level 3.3 L Chloride Level 101 Carbon Dioxide Level 27 Anion Gap 21 H Blood Urea Nitrogen 45 #H Creatinine 2.09 H Glucose Level 136 Calcium Level 10.2 Phosphorus Level 5.6 H Magnesium Level 2.0 Test 01/17/17 06:09 01/17/17 07:00 Bedside Glucose 178 Blood Gas Specimen Source Blood arterial Arterial Blood Date Drawn 01/17/2017 7:40:07 AM Arterial Blood pH (Temp corrected) 7.352 Arterial Blood pCO2 (Temp correct) 43.9 Arterial Blood pO2 (Temp corrected) 114.8 H Arterial Blood HCO3 23.8 Arterial Blood Base Excess -1.8 Arterial Blood Oxygen Saturation 98.1 H Ivan Test ACCEPTAB Arterial Blood Gas Puncture Site Right Radial Arterial Blood Carboxyhemoglobin 0.4 Arterial Blood Methemoglobin 0.4 Blood Gas A-a O2 Differential 481.9 H Oxyhemoglobin Percent 97.3 Total Hemoglobin 11.2 L Blood Gas Temperature 37.0 Blood Gas Respiration Rate 16.0 Blood Gas Actual Respiration Rate 16 Blood Gas Modality VENT - AC FiO2 90.0 Blood Gas Tidal Volume 500.0 Blood Gas Low PEEP Setting 12.0 Blood Gas Notified Whom JLD Blood Gas Notified Time 01/17/2017 8:07:50 AM Medications Current Medications Acetaminophen (Tylenol Liquid) 650 mg Q4H PRN GTB PAIN OR TEMP ABOVE 38C; Start 01/07/17 at 13:00 Diphenhydramine HCl (Benadryl) 25 mg Q6H PRN GTB ITCHING Last administered on 02:12; Admin Dose 25 MG; Start 01/07/17 at 13:00 Multivit/Ca Carb/ B Cmplx/FA/Prenat (Macrina-Brigitte) 1 tab DAILY GTB Last administered on 01/17/17 09:52; Admin Dose 1 TAB; Start 01/08/17 at 09:00 Ondansetron HCl (Zofran Tab) 4 mg Q4H PRN GTB NAUSEA AND/OR VOMITING Last administered on 01/15/17 05:07; Admin Dose 4 MG; Start 01/07/17 at 13:00 Sodium Phosphate (Kphos Neutral) 250 mg BID GTB Last administered on 01/17/17 09:52; Admin Dose 250 MG; Start 01/07/17 at 21:00 Miscellaneous Information 1 ea NOTE XX ; Start 01/07/17 at 23:45 Glucose (Glutose) 15 gm Q15M PRN PO DECREASED GLUCOSE; Start 01/07/17 at 23:45 Glucose (Glutose) 22.5 gm Q15M PRN PO DECREASED GLUCOSE; Start 01/07/17 at 23:45 Dextrose (D50w Syringe) 25 ml Q15M PRN IV DECREASED GLUCOSE; Start 01/07/17 at 23:45 Dextrose (D50w Syringe) 50 ml Q15M PRN IV DECREASED GLUCOSE; Start 01/07/17 at 23:45 Glucagon (Glucagen) 1 mg Q15M PRN IM DECREASED GLUCOSE; Start 01/07/17 at 23:45 Glucose (Glutose) 15 gm Q15M PRN BUCCAL DECREASED GLUCOSE; Start 01/07/17 at 23: 45 [facility]iscellaneous [facility] This patient lopez... PRN PRN XX WOUND CARE; Start 01/08/17 at 07:30 Insulin Aspart NOVOLOG *MILD* ALGORI... Q6 SC Last administered on 01/17/17 06 :11; Admin Dose 1 UNIT; Start 01/08/17 at 12:00 Caspofungin/ Sodium Chloride (Cancidas/NS) 250 ml @ 250 mls/hr Q24H IVPB Last administered on 01/16/17 13:58; Admin Dose 250 MLS/HR; Start 01/09/17 at 12:00 Heparin Sodium (Porcine) (Heparin (5000 Units/0.5 ml)) 5,000 unit BID SC Last administered on 01/17/17 09:53; Admin Dose 5,000 UNIT; Start 01/10/17 at 21:00 Lorazepam (Ativan) 1 mg Q6H PRN PO Agitation Last administered on 01/15/17 05: 07; Admin Dose 1 MG; Start 01/10/17 at 13:30 Linezolid 600 mg 600 mg BID PO Last administered on 01/17/17 09:52; Admin Dose 600 MG; Start 01/10/17 at 15:00 Midazolam HCl (Versed) 50 ml @ 1 mls/hr TITRATE IV ; Start 01/11/17 at 11:00 Midodrine (Proamatine) 5 mg BID@,17 NGT Last administered on 01/17/17 09:55 ; Admin Dose 5 MG; Start 01/12/17 at 09:00 Escitalopram Oxalate 10 mg 10 mg DAILY GTB Last administered on 01/17/17 09:52 ; Admin Dose 10 MG; Start 01/13/17 at 09:00 Norepinephrine 250 ml @ 1.875 mls/ hr TITRATE IV Last administered on 20:00; Admin Dose 2.813 MLS/HR; Start 01/15/17 at 19:00 Norepinephrine 16 mg/Dextrose 500 ml @ 1.87 mls/hr TITRATE IV ; Start 01/15/17 at 23:45 Meropenem/Sodium Chloride (Merrem 500mg/50 ml(Pmx)) 50 ml @ 200 mls/hr Q24H IVPB ; Start 01/18/17 at 14:00 Assessment/Plan Chief Complaint/Hosp Course IMP: 1. Acute on chronic hypoxemic respiratory failure possible component of worsening volume overload in addition to pneumonia. 2. UTI 3. VDRF 4. ESRD on HD status post hemodialysis today with volume removal 5. Anemia likely secondary to underlying renal disease RECS: 1. Decrease FiO2 and PEEP 2. Continue pulmonary toilet 3. Continue hemodialysis with volume removal 4. continue antibiotics per ID 5. continue Mucomyst 6. Continue Ativan and Lexapro. Patient appears less agitated with addition of Lexapro Critical care time 40 minutes Problems: RHON[facility]ROSTRO MD, [facility] Jan 17, 2017 11:20
[2017-01-17] MEDS: CASPOFUNGIN 50 MG in SOD CHLORIDE 0.9% 250 ML IVPB SCH (12:21)
--- NOTE | 2017-01-17 12:53 | PN ---
Date/Time of Note Date/Time of Note DATE: 01/17/17 TIME: 12:50 Assessment/Plan VTE Prophylaxis VTE Prophylaxis Intervention: SCD's Lines/Catheters IV Catheter Type (from Nrs): Peripheral IV Urinary Cath still in place: No Assessment/Plan Chief Complaint/Hosp Course 1. acute on chronic hypoxemic hypercapnic respiratory failure: s/p trach: vent dep. now with severe hypoxemia 2. Pafib; currently remains in NSR: off of amiodarone now 3. HX Sick sinus syndrome: s/p PPM: pacemaker was interrogated and personally reviewed on 01/08/17 with normal functioning pacemaker. 4. pneumonia 5. ESRD on HD 6. HX HTN: stable now 7. severe anemia: s/p multiple transfusion 8. severe hypoxemia 9. SHOCK: CURRENTLY still on levophed drip. cont vent support not anticoagulated due to concerns about bleeding and severe anemia. abx as per IM/ ID and pulm team CONT HD HR has remained stable. will try to wean off levophed is stable BP. correct lytes prn transfusion prn Off of AMIODARONE due to severe hypoxemia, specially since pt has remained in NSR. cont ICU care more than 36 minutes of critical care time was spent in management and treatment of this critically ill pt, excluding any procedures. Problems: Subjective 24 Hr Interval Summary Free Text/Dictation d/w staff and rhythm was reviewed. pt remains in NSR. no afib EVENTS noted. pt still with severe hypoxemia and on 75% O2 now pt with no chest pain. she c/o mild R lower abdominal pain OBJECTIVE. General: s/p trach on vent. in no distress HEENT: NC/AT. pupils are equal. round. NECK: s/p trach. no stridor. CV: RRR. systolic murmur; no gallop or rubs. PULM: no wheezing but + rhonchi anteriorly GI: SOFT, NT, ND, no rebound or guarding . s/p PEG Extremity: trace B/L LE edema. no clubbing. neuro: awake and alert responds appropriately Psych: calm, pleasant rectal: deferred Derm: + echymosis Exam/Review of Systems Vital Signs Vitals Vital Signs Date Time Temp Pulse Resp B/P Pulse Ox O2 Delivery O2 Flow Rate FiO2 01/17/17 12:00 76 01/17/17 11:00 18 100 75 01/17/17 10:15 93/75 01/17/17 10:00 Mechanical Ventilator 01/17/17 08:00 98.5 Intake and Output 01/16/17 01/16/17 01/17/17 15:00 23:00 07:00 Intake Total 1561.600 ml 663.440 ml 477.502 ml Output Total 2500 ml Balance -938.400 ml 663.440 ml 477.502 ml Results Result Diagram: 01/17/1730 01/17/17 0530 Results 24 hrs Laboratory Tests Test 01/16/17 13:52 01/16/17 17:50 01/17/17 00:09 01/17/17 05:30 Bedside Glucose 133 102 142 White Blood Count 12.2 #H Red Blood Count 3.59 L Hemoglobin 10.0 L Hematocrit 33.2 L Mean Corpuscular Volume 92.5 Mean Corpuscular Hemoglobin 27.9 L Mean Corpuscular Hemoglobin Concent 30.1 L Red Cell Distribution Width 19.9 H Platelet Count 238 Mean Platelet Volume 11.9 H Neutrophils % 69.5 Lymphocytes % 15.2 Monocytes % 9.4 Eosinophils % 5.1 Basophils % 0.4 Nucleated Red Blood Cells % 0.0 Neutrophils # 8.5 H Lymphocytes # 1.9 Monocytes # 1.2 H Eosinophils # 0.6 H Basophils # 0.1 Nucleated Red Blood Cells # 0.0 Sodium Level 146 H Potassium Level 3.3 L Chloride Level 101 Carbon Dioxide Level 27 Anion Gap 21 H Blood Urea Nitrogen 45 #H Creatinine 2.09 H Glucose Level 136 Calcium Level 10.2 Phosphorus Level 5.6 H Magnesium Level 2.0 Test 01/17/17 06:09 01/17/17 07:00 01/17/17 12:20 Bedside Glucose 178 107 Blood Gas Specimen Source Blood arterial Arterial Blood Date Drawn 01/17/2017 7:40:07 AM Arterial Blood pH (Temp corrected) 7.352 Arterial Blood pCO2 (Temp correct) 43.9 Arterial Blood pO2 (Temp corrected) 114.8 H Arterial Blood HCO3 23.8 Arterial Blood Base Excess -1.8 Arterial Blood Oxygen Saturation 98.1 H Ivan Test ACCEPTAB Arterial Blood Gas Puncture Site Right Radial Arterial Blood Carboxyhemoglobin 0.4 Arterial Blood Methemoglobin 0.4 Blood Gas A-a O2 Differential 481.9 H Oxyhemoglobin Percent 97.3 Total Hemoglobin 11.2 L Blood Gas Temperature 37.0 Blood Gas Respiration Rate 16.0 Blood Gas Actual Respiration Rate 16 Blood Gas Modality VENT - AC FiO2 90.0 Blood Gas Tidal Volume 500.0 Blood Gas Low PEEP Setting 12.0 Blood Gas Notified Whom JLD Blood Gas Notified Time 01/17/2017 8:07:50 AM Medications Medications Current Medications Acetaminophen (Tylenol Liquid) 650 mg Q4H PRN GTB PAIN OR TEMP ABOVE 38C; Start 01/07/17 at 13:00 Diphenhydramine HCl (Benadryl) 25 mg Q6H PRN GTB ITCHING Last administered on 02:12; Admin Dose 25 MG; Start 01/07/17 at 13:00 Multivit/Ca Carb/ B Cmplx/FA/Prenat (Macrina-Brigitte) 1 tab DAILY GTB Last administered on 01/17/17 09:52; Admin Dose 1 TAB; Start 01/08/17 at 09:00 Ondansetron HCl (Zofran Tab) 4 mg Q4H PRN GTB NAUSEA AND/OR VOMITING Last administered on 01/15/17 05:07; Admin Dose 4 MG; Start 01/07/17 at 13:00 Sodium Phosphate (Kphos Neutral) 250 mg BID GTB Last administered on 01/17/17 09:52; Admin Dose 250 MG; Start 01/07/17 at 21:00 Miscellaneous Information 1 ea NOTE XX ; Start 01/07/17 at 23:45 Glucose (Glutose) 15 gm Q15M PRN PO DECREASED GLUCOSE; Start 01/07/17 at 23:45 Glucose (Glutose) 22.5 gm Q15M PRN PO DECREASED GLUCOSE; Start 01/07/17 at 23:45 Dextrose (D50w Syringe) 25 ml Q15M PRN IV DECREASED GLUCOSE; Start 01/07/17 at 23:45 Dextrose (D50w Syringe) 50 ml Q15M PRN IV DECREASED GLUCOSE; Start 01/07/17 at 23:45 Glucagon (Glucagen) 1 mg Q15M PRN IM DECREASED GLUCOSE; Start 01/07/17 at 23:45 Glucose (Glutose) 15 gm Q15M PRN BUCCAL DECREASED GLUCOSE; Start 01/07/17 at 23: 45 Miscellaneous Information (Pending [facility] Order For Wound Care) This patient lopez... PRN PRN XX WOUND CARE; Start 01/08/17 at 07:30 Insulin Aspart NOVOLOG *MILD* ALGORI... Q6 SC Last administered on 01/17/17 06 :11; Admin Dose 1 UNIT; Start 01/08/17 at 12:00 Caspofungin/ Sodium Chloride (Cancidas/NS) 250 ml @ 250 mls/hr Q24H IVPB Last administered on 01/17/17 12:21; Admin Dose 250 MLS/HR; Start 01/09/17 at 12:00 Heparin Sodium (Porcine) (Heparin (5000 Units/0.5 ml)) 5,000 unit BID SC Last administered on 01/17/17 09:53; Admin Dose 5,000 UNIT; Start 01/10/17 at 21:00 Lorazepam (Ativan) 1 mg Q6H PRN PO Agitation Last administered on 01/15/17 05: 07; Admin Dose 1 MG; Start 01/10/17 at 13:30 Linezolid 600 mg 600 mg BID PO Last administered on 01/17/17 09:52; Admin Dose 600 MG; Start 01/10/17 at 15:00 Midazolam HCl (Versed) 50 ml @ 1 mls/hr TITRATE IV ; Start 01/11/17 at 11:00 Midodrine (Proamatine) 5 mg BID@09,17 NGT Last administered on 01/17/17 09:55 ; Admin Dose 5 MG; Start 01/12/17 at 09:00 Escitalopram Oxalate 10 mg 10 mg DAILY GTB Last administered on 01/17/17 09:52 ; Admin Dose 10 MG; Start 01/13/17 at 09:00 Norepinephrine 250 ml @ 1.875 mls/ hr TITRATE IV Last administered on 20:00; Admin Dose 2.813 MLS/HR; Start 01/15/17 at 19:00 Norepinephrine 16 mg/Dextrose 500 ml @ 1.87 mls/hr TITRATE IV ; Start 01/15/17 at 23:45 Meropenem/Sodium Chloride (Merrem 500mg/50 ml(Pmx)) 50 ml @ 200 mls/hr Q24H IVPB ; Start 01/18/17 at 14:00 KIAH GARCIA MD Jan 17, 2017 12:53
--- NOTE | 2017-01-17 13:07 | RADRPT ---
PROCEDURE: XR Chest 1 View. CLINICAL INDICATION: Shortness of breath, possible aspiration. TECHNIQUE: AP view of the chest was obtained. COMPARISON: October 12, 2016 FINDINGS: The heart size is within normal limits. Calcified atherosclerosis is noted in the aorta. Left-sided dual chamber pacemaker has its leads over the heart and appears stable. Tracheostomy tube appears in grossly appropriate location. Right-sided dialysis catheter has its tip in the expected location of the distal superior vena cava. The lungs are hypoinflated. Patchy potential infiltrates are id entified in the bilateral lower lobes. The osseous structures are osteopenic, but appear intact. Stone rgical clips are noted in the left axilla. IMPRESSION: Calcified atherosclerosis in the aorta. Patchy potential infiltrates in the bilateral lower lobes. Hypoinflated lungs. No visualized radiopaque foreign body. Please note that certain materials such as wood are radioluc ent on x-ray. If there is clinical suspicion for aspirated foreign body, further characterization w ith CT should should be considered. RPTAT: AA .Henry Flores MD, MD Date Time Electronically viewed and signed by .Henry Flores MD, on 01/17/2017 13:06 .P/
--- NOTE | 2017-01-17 14:35 | CONS ---
Date/Time of Note Date/Time of Note DATE: 01/17/17 TIME: 14:34 Assessment/Plan Assessment/Plan Chief Complaint/Hosp Course No events. Patient is awake, looks comfortable on vent, still on low-dose Levophed drip Temperature 99 pulse 73 respirations 17 blood pressure 108/70 saturation 100 on vent WBC 12.2 H&H 10 and 33.2 platelets 238 no shift Chest x-ray revealed patchy potential infiltrates in the bilateral lower lobes Indwelling's: Trach, PEG, permanent pacemaker, right chest permacath Antibiotics: Cancidas, Zyvox, Merrem Microbiology: Urine culture growing Dilcia glabrata, wound culture growing enterococcus and coag negative staph species Allergy: Erythromycin, vancomycin Physical examination: Chronically ill-appearing elderly woman who is in no distress. Head atraumatic normocephalic, sclera nonicteric, neck is supple, tracheostomy present. Chest rise symmetrical, breath sounds diminished basis. Heart S1-S2. Abdomen soft, bowel tones present. Extremities no cyanosis Assessment: 1. Acute on chronic Hypoxemic Resp Failure secondary to fluid overload and possible pneumonia 2. UTI 3. VDRF 4. ESRD on HD 5. Sacral decubitus Plan: Remains on Levophed, continue antibiotics, local wound care, vent management per pulmonary recommendations Discussed with staff Problems: Consultation Date/Type/Reason Admit Date/Time Jan 07, 2017 at 12:43 Initial Consult Date 01/08/17 Type of Consultation: ID Referring Provider: YAYO EDGAR DO Exam/Review of Systems Vital Signs Vitals Vital Signs Date Time Temp Pulse Resp B/P Pulse Ox O2 Delivery O2 Flow Rate FiO2 01/17/17 13:45 79 22 105/63 92 01/17/17 13:00 Mechanical Ventilator 01/17/17 12:00 99.0 01/17/17 11:00 75 Intake and Output 01/16/17 01/16/17 01/17/17 15:00 23:00 07:00 Intake Total 1561.600 ml 663.440 ml 477.502 ml Output Total 2500 ml Balance -938.400 ml 663.440 ml 477.502 ml Results Result Diagram: 01/17/17 0530 01/17/17 0530 Results 24 hrs Laboratory Tests Test 01/16/17 17:50 01/17/17 00:09 01/17/17 05:30 01/17/17 06:09 Bedside Glucose 102 142 178 White Blood Count 12.2 #H Red Blood Count 3.59 L Hemoglobin 10.0 L Hematocrit 33.2 L Mean Corpuscular Volume 92.5 Mean Corpuscular Hemoglobin 27.9 L Mean Corpuscular Hemoglobin Concent 30.1 L Red Cell Distribution Width 19.9 H Platelet Count 238 Mean Platelet Volume 11.9 H Neutrophils % 69.5 Lymphocytes % 15.2 Monocytes % 9.4 Eosinophils % 5.1 Basophils % 0.4 Nucleated Red Blood Cells % 0.0 Neutrophils # 8.5 H Lymphocytes # 1.9 Monocytes # 1.2 H Eosinophils # 0.6 H Basophils # 0.1 Nucleated Red Blood Cells # 0.0 Sodium Level 146 H Potassium Level 3.3 L Chloride Level 101 Carbon Dioxide Level 27 Anion Gap 21 H Blood Urea Nitrogen 45 #H Creatinine 2.09 H Glucose Level 136 Calcium Level 10.2 Phosphorus Level 5.6 H Magnesium Level 2.0 Test 01/17/17 07:00 01/17/17 12:20 Blood Gas Specimen Source Blood arterial Arterial Blood Date Drawn 01/17/2017 7:40:07 AM Arterial Blood pH (Temp corrected) 7.352 Arterial Blood pCO2 (Temp correct) 43.9 Arterial Blood pO2 (Temp corrected) 114.8 H Arterial Blood HCO3 23.8 Arterial Blood Base Excess -1.8 Arterial Blood Oxygen Saturation 98.1 H Ivan Test ACCEPTAB Arterial Blood Gas Puncture Site Right Radial Arterial Blood Carboxyhemoglobin 0.4 Arterial Blood Methemoglobin 0.4 Blood Gas A-a O2 Differential 481.9 H Oxyhemoglobin Percent 97.3 Total Hemoglobin 11.2 L Blood Gas Temperature 37.0 Blood Gas Respiration Rate 16.0 Blood Gas Actual Respiration Rate 16 Blood Gas Modality VENT - AC FiO2 90.0 Blood Gas Tidal Volume 500.0 Blood Gas Low PEEP Setting 12.0 Blood Gas Notified Whom JLD Blood Gas Notified Time 01/17/2017 8:07:50 AM Bedside Glucose 107 Medications Medications Current Medications Acetaminophen (Tylenol Liquid) 650 mg Q4H PRN GTB PAIN OR TEMP ABOVE 38C; Start 01/07/17 at 13:00 Diphenhydramine HCl (Benadryl) 25 mg Q6H PRN GTB ITCHING Last administered on t 02:12; Admin Dose 25 MG; Start 01/07/17 at 13:00 Multivit/Ca Carb/ B Cmplx/FA/Prenat (Macrina-Brigitte) 1 tab DAILY GTB Last administered on 01/17/17 09:52; Admin Dose 1 TAB; Start 01/08/17 at 09:00 Ondansetron HCl (Zofran Tab) 4 mg Q4H PRN GTB NAUSEA AND/OR VOMITING Last administered on 01/15/17 05:07; Admin Dose 4 MG; Start 01/07/17 at 13:00 Sodium Phosphate (Kphos Neutral) 250 mg BID GTB Last administered on 01/17/17 09:52; Admin Dose 250 MG; Start 01/07/17 at 21:00 Miscellaneous Information 1 ea NOTE XX ; Start 01/07/17 at 23:45 Glucose (Glutose) 15 gm Q15M PRN PO DECREASED GLUCOSE; Start 01/07/17 at 23:45 Glucose (Glutose) 22.5 gm Q15M PRN PO DECREASED GLUCOSE; Start 01/07/17 at 23:45 Dextrose (D50w Syringe) 25 ml Q15M PRN IV DECREASED GLUCOSE; Start 01/07/17 at 23:45 Dextrose (D50w Syringe) 50 ml Q15M PRN IV DECREASED GLUCOSE; Start 01/07/17 at 23:45 Glucagon (Glucagen) 1 mg Q15M PRN IM DECREASED GLUCOSE; Start 01/07/17 at 23:45 Glucose (Glutose) 15 gm Q15M PRN BUCCAL DECREASED GLUCOSE; Start 01/07/17 at 23: 45 Miscellaneous Information (Pending [facility] Order For Wound Care) This patient lopez... PRN PRN XX WOUND CARE; Start 01/08/17 at 07:30 Insulin Aspart NOVOLOG *MILD* ALGORI... Q6 SC Last administered on 01/17/17 06 :11; Admin Dose 1 UNIT; Start 01/08/17 at 12:00 Caspofungin/ Sodium Chloride (Cancidas/NS) 250 ml @ 250 mls/hr Q24H IVPB Last administered on 01/17/17 12:21; Admin Dose 250 MLS/HR; Start 01/09/17 at 12:00 Heparin Sodium (Porcine) (Heparin (5000 Units/0.5 ml)) 5,000 unit BID SC Last administered on 01/17/17 09:53; Admin Dose 5,000 UNIT; Start 01/10/17 at 21:00 Lorazepam (Ativan) 1 mg Q6H PRN PO Agitation Last administered on 01/15/17 05: 07; Admin Dose 1 MG; Start 01/10/17 at 13:30 Linezolid 600 mg 600 mg BID PO Last administered on 01/17/17 09:52; Admin Dose 600 MG; Start 01/10/17 at 15:00 Midazolam HCl (Versed) 50 ml @ 1 mls/hr TITRATE IV ; Start 01/11/17 at 11:00 Midodrine (Proamatine) 5 mg BID@09,17 NGT Last administered on 01/17/17 09:55 ; Admin Dose 5 MG; Start 01/12/17 at 09:00 Escitalopram Oxalate 10 mg 10 mg DAILY GTB Last administered on 01/17/17 09:52 ; Admin Dose 10 MG; Start 01/13/17 at 09:00 Norepinephrine 250 ml @ 1.875 mls/ hr TITRATE IV Last administered on 20:00; Admin Dose 2.813 MLS/HR; Start 01/15/17 at 19:00 Norepinephrine 16 mg/Dextrose 500 ml @ 1.87 mls/hr TITRATE IV ; Start 01/15/17 at 23:45 Meropenem/Sodium Chloride (Merrem 500mg/50 ml(Pmx)) 50 ml @ 200 mls/hr Q24H IVPB ; Start 01/18/17 at 14:00 AI FUNEZ NP Jan 17, 2017 14:35
[2017-01-18] VITALS (109 sets, daily range): BP systolic 76–118; BP diastolic 47–85; PULSE 67–102; RESP 7–34
[2017-01-18] MEDS: IPRATROPIUM (HFA) 12.9 GM INHALER INH SCH ×4 (01:10→19:02)
[2017-01-18] MEDS: ALBUTEROL 18 GM INHALER INH SCH ×4 (01:10→19:02)
[2017-01-18] MEDS: ACETYLCYSTEINE 20% 4 ML VIAL NEB SCH ×4 (01:11→19:02)
[2017-01-18] MEDS: EPOETIN 4000 UNITS/1 ML INJ (ESRD) SC SCH ×2 (03:06→11:39)
[2017-01-18 05:58] LABS: ADD SCAN DIFF NO
[2017-01-18] MEDS: INSULIN ASPART [NOVOLOG] 3 ML PEN SC SCH ×4 (06:00→23:55)
[2017-01-18 06:06] LABS: BASOPHIL # 0.1 10^3/ul (0.0-0.1); BASOPHILS % 0.6 % (0.0-2.0); EOSINOPHILS # 0.3 10^3/ul (0.0-0.5); EOSINOPHILS % 3.3 % (0.0-7.0); HEMATOCRIT 33.6 % (37.0-47.0); HEMOGLOBIN 9.9 g/dl (12.0-16.0); LYMPHOCYTES # 1.6 10^3/ul (0.8-2.9); LYMPHOCYTES % 16.3 % (15.0-51.0); MEAN CORPUSCULAR HEMOGLOBIN 27.9 pg (29.0-33.0); MEAN CORPUSCULAR HGB CONC 29.5 g/dl (32.0-37.0); MEAN CORPUSCULAR VOLUME 94.6 fl (82.0-101.0); MEAN PLATELET VOLUME 12.8 fl (7.4-10.4); MONOCYTE # 0.9 10^3/ul (0.3-0.9); MONOCYTES % 8.9 % (0.0-11.0); NEUTROPHIL # 7.1 10^3/ul (1.6-7.5); NEUTROPHILS % 70.4 % (39.0-77.0); PLATELET COUNT 190 10^3/UL (140-415); RED BLOOD COUNT 3.55 10^6/ul (4.20-5.40); RED CELL DISTRIBUTION WIDTH 19.9 % (11.5-14.5); WHITE BLOOD COUNT 10.1 10^3/ul (4.8-10.8)
[2017-01-18] MEDS: LANSOPRAZOLE 30 MG CAP GTB SCH (06:26)
[2017-01-18 06:39] LABS: CALCIUM 9.9 mg/dl (8.4-10.2); CREATININE 1.57 mg/dl (0.44-1.00); PHOSPHORUS 3.1 mg/dl (2.5-4.9); POTASSIUM 3.5 mmol/L (3.5-5.1)
--- NOTE | 2017-01-18 08:21 | PN ---
Date/Time of Note Date/Time of Note DATE: 01/18/17 TIME: 08:17 Assessment/Plan VTE Prophylaxis VTE Prophylaxis Intervention: other Lines/Catheters IV Catheter Type (from Nrs): Peripheral IV Urinary Cath still in place: No Assessment/Plan Chief Complaint/Hosp Course 1. acute on chronic hypoxemic hypercapnic respiratory failure: s/p trach: vent dep. now with severe hypoxemia 2. Pafib; currently remains in NSR: off of amiodarone now 3. HX Sick sinus syndrome: s/p PPM: pacemaker was interrogated and personally reviewed on 01/08/17 with normal functioning pacemaker. 4. pneumonia 5. ESRD on HD 6. HX HTN: stable now 7. severe anemia: s/p multiple transfusion 8. severe hypoxemia 9. SHOCK: CURRENTLY still on levophed drip. unable to wean off so far. cont vent support not anticoagulated due to concerns about bleeding and severe anemia. abx as per IM/ ID and pulm team CONT HD HR has remained stable. will try to wean off levophed is stable BP. correct lytes prn transfusion prn Off of AMIODARONE due to severe hypoxemia, specially since pt has remained in NSR. cont ICU care more than 38 minutes of critical care time was spent in management and treatment of this critically ill pt, excluding any procedures. Problems: Subjective 24 Hr Interval Summary Free Text/Dictation CARDIOLOGY FOLLOW UP PROGRESS NOTE/ ICU NOTE: SUBJECTIVE: d/w staff and rhythm was reviewed. pt remains in NSR. no afib noted. pt still with severe hypoxemia and on 65% O2 now pt is still s/p trach on vent in ICU and on levophed drip. unable to wean off still. pt with no chest pain. pt with thick sputum as per RN report. OBJECTIVE. General: s/p trach on vent. in no distress HEENT: NC/AT. pupils are equal. round. NECK: s/p trach. no stridor. CV: RRR. systolic murmur; no gallop or rubs. PULM: no wheezing but + rhonchi anteriorly diffusely GI: SOFT, NT, ND, no rebound or guarding . s/p PEG Extremity: trace B/L LE edema. no clubbing. neuro: awake and alert responds appropriately Psych: calm, pleasant rectal: deferred Derm: + echymosis chest: s/p R mastectomy and HD ACCESS in place. Exam/Review of Systems Vital Signs Vitals Vital Signs Date Time Temp Pulse Resp B/P Pulse Ox O2 Delivery O2 Flow Rate FiO2 01/18/17 07:00 78 23 104/60 95 Mechanical Ventilator 01/18/17 05:10 65 01/18/17 04:00 99.2 Intake and Output 01/17/17 01/17/17 01/18/17 15:00 23:00 07:00 Intake Total 622.500 ml 1217.500 ml 615.000 ml Output Total 50 ml 3050 ml 160 ml Balance 572.500 ml -1832.500 ml 455.000 ml Results Result Diagram: 01/18/1728 01/18/17527 Results 24 hrs Laboratory Tests Test 01/17/17 12:20 01/17/17 18:31 01/17/17 20:47 01/18/17 05:28 Bedside Glucose 107 96 115 White Blood Count 10.1 Red Blood Count 3.55 L Hemoglobin 9.9 L Hematocrit 33.6 L Mean Corpuscular Volume 94.6 Mean Corpuscular Hemoglobin 27.9 L Mean Corpuscular Hemoglobin Concent 29.5 L Red Cell Distribution Width 19.9 H Platelet Count 190 # Mean Platelet Volume 12.8 H Neutrophils % 70.4 Lymphocytes % 16.3 Monocytes % 8.9 Eosinophils % 3.3 Basophils % 0.6 Nucleated Red Blood Cells % 0.0 Neutrophils # 7.1 Lymphocytes # 1.6 Monocytes # 0.9 Eosinophils # 0.3 Basophils # 0.1 Nucleated Red Blood Cells # 0.0 Sodium Level 140 Potassium Level 3.5 Chloride Level 104 Carbon Dioxide Level 24 Anion Gap 16 Blood Urea Nitrogen 32 #H Creatinine 1.57 H Glucose Level 130 Calcium Level 9.9 Phosphorus Level 3.1 # Magnesium Level 2.0 Test 01/18/17 06:25 Bedside Glucose 134 Medications Medications Current Medications Acetaminophen (Tylenol Liquid) 650 mg Q4H PRN GTB PAIN OR TEMP ABOVE 38C; Start 01/07/17 at 13:00 Diphenhydramine HCl (Benadryl) 25 mg Q6H PRN GTB ITCHING Last administered on t 02:12; Admin Dose 25 MG; Start 01/07/17 at 13:00 Multivit/Ca Carb/ B Cmplx/FA/Prenat (Macrina-Brigitte) 1 tab DAILY GTB Last administered on 01/17/17 09:52; Admin Dose 1 TAB; Start 01/08/17 at 09:00 Ondansetron HCl (Zofran Tab) 4 mg Q4H PRN GTB NAUSEA AND/OR VOMITING Last administered on 01/15/17 05:07; Admin Dose 4 MG; Start 01/07/17 at 13:00 Miscellaneous Information 1 ea NOTE XX ; Start 01/07/17 at 23:45 Glucose (Glutose) 15 gm Q15M PRN PO DECREASED GLUCOSE; Start 01/07/17 at 23:45 Glucose (Glutose) 22.5 gm Q15M PRN PO DECREASED GLUCOSE; Start 01/07/17 at 23:45 Dextrose (D50w Syringe) 25 ml Q15M PRN IV DECREASED GLUCOSE; Start 01/07/17 at 23:45 Dextrose (D50w Syringe) 50 ml Q15M PRN IV DECREASED GLUCOSE; Start 01/07/17 at 23:45 Glucagon (Glucagen) 1 mg Q15M PRN IM DECREASED GLUCOSE; Start 01/07/17 at 23:45 Glucose (Glutose) 15 gm Q15M PRN BUCCAL DECREASED GLUCOSE; Start 01/07/17 at 23: 45 Miscellaneous Information (Pending [facility] Order For Wound Care) This patient lopez... PRN PRN XX WOUND CARE; Start 01/08/17 at 07:30 Insulin Aspart NOVOLOG *MILD* ALGORI... Q6 SC Last administered on 01/17/17 06 :11; Admin Dose 1 UNIT; Start 01/08/17 at 12:00 Caspofungin/ Sodium Chloride (Cancidas/NS) 250 ml @ 250 mls/hr Q24H IVPB Last administered on 01/17/17 12:21; Admin Dose 250 MLS/HR; Start 01/09/17 at 12:00 Heparin Sodium (Porcine) (Heparin (5000 Units/0.5 ml)) 5,000 unit BID SC Last administered on 01/17/17 20:48; Admin Dose 5,000 UNIT; Start 01/10/17 at 21:00 Lorazepam (Ativan) 1 mg Q6H PRN PO Agitation Last administered on 01/15/17 05: 07; Admin Dose 1 MG; Start 01/10/17 at 13:30 Linezolid 600 mg 600 mg BID PO Last administered on 01/17/17 20:45; Admin Dose 600 MG; Start 01/10/17 at 15:00 Midazolam HCl (Versed) 50 ml @ 1 mls/hr TITRATE IV ; Start 01/11/17 at 11:00 Midodrine (Proamatine) 5 mg BID@09,17 NGT Last administered on 01/17/17 18:31 ; Admin Dose 5 MG; Start 01/12/17 at 09:00 Escitalopram Oxalate 10 mg 10 mg DAILY GTB Last administered on 01/17/17 09:52 ; Admin Dose 10 MG; Start 01/13/17 at 09:00 Norepinephrine 16 mg/Dextrose 500 ml @ 1.87 mls/hr TITRATE IV ; Start 01/15/17 at 23:45 Meropenem/Sodium Chloride (Merrem 500mg/50 ml(Pmx)) 50 ml @ 200 mls/hr Q24H IVPB ; Start 01/18/17 at 14:00 KIAH GARCIA MD Jan 18, 2017 08:20
--- NOTE | 2017-01-18 08:38 | PN ---
Date/Time of Note Date/Time of Note DATE: 01/18/17 TIME: 08:35 Assessment/Plan Lines/Catheters IV Catheter Type (from [facility]): Peripheral IV Urinary Cath still in place: No Assessment/Plan Chief Complaint/Hosp Course 1. hypoxemic respiratory failure. etiology likely multifactorial, chf, ? pna,, ? Anxiety -CT angios showed interstitial edema pulmonary edema, no evidence of PE FiO2 improving plan -We will attempt daily dialysis for volume removal. If hemodynamically able to be tolerated -Follow-up with pulmonary -Monitor 2. septic shock Secondary to UTI, questionable pneumonia. Urinalysis positive for pyuria. Urine culture is positive yeast. chest x-ray suggests possible infiltrate -Patient on pressure support, broad-spectrum antibiotics -Wean off pressors slowly Follow-up with infectious disease 3. Encephalopathy, acute. Etiology is likely secondary to toxic metabolic -Mental status appears to be improving continue to monitor 4. Dysphagia, status post percutaneous endoscopic gastrostomy. -Continue tube feeding. 5. ESRD -HD today 7. Atrial fibrillation, currently rate controlled. Continue medical management. -Off anticoagulation secondary to previous bleed - Continue beta louise. We will follow up with cardiology. 8. Anemia. Continue to monitor hemoglobin and hematocrit levels. Continue Epogen 9. Mineral bone disease. Continue to monitor calcium and phosphorus levels. 10. History of breast cancer status post bilateral mastectomy. 11. Congestive heart failure. Continue medical management. 12. Diabetes. Continue Accu-Cheks and sliding scale. 13. History of Clostridium difficile colitis, status post treatment. 14. Gastrointestinal and deep venous thrombosis prophylaxis. Continue Protonix , SCD, heparin 15. Hypokalemia replete with potassium chloride as needed 16. Anxiety disorder. Will start patient on Lexapro 17. Hypokalemia. Monitor and replete potassium chloride as needed Please note I spent over 35 minutes critical care time with this patient Problems: Subjective 24 Hr Interval Summary Free Text/Dictation Patient seen and examined. FiO2 levels are tight being titrated down Remains critically ill on pressure support Exam/Review of Systems Vital Signs Vitals Vital Signs Date Time Temp Pulse Resp B/P Pulse Ox O2 Delivery O2 Flow Rate FiO2 01/18/17 07:00 78 23 104/60 95 Mechanical Ventilator 01/18/17 05:10 65 01/18/17 04:00 99.2 Intake and Output 01/17/17 01/17/17 01/18/17 15:00 23:00 07:00 Intake Total 622.500 ml 1217.500 ml 615.000 ml Output Total 50 ml 3050 ml 160 ml Balance 572.500 ml -1832.500 ml 455.000 ml Results Result Diagram: 01/18/17 0528 01/18/17 0528 Results 24 hrs Laboratory Tests Test 01/17/17 12:20 01/17/17 18:31 01/17/17 20:47 01/18/17 05:28 Bedside Glucose 107 96 115 White Blood Count 10.1 Red Blood Count 3.55 L Hemoglobin 9.9 L Hematocrit 33.6 L Mean Corpuscular Volume 94.6 Mean Corpuscular Hemoglobin 27.9 L Mean Corpuscular Hemoglobin Concent 29.5 L Red Cell Distribution Width 19.9 H Platelet Count 190 # Mean Platelet Volume 12.8 H Neutrophils % 70.4 Lymphocytes % 16.3 Monocytes % 8.9 Eosinophils % 3.3 Basophils % 0.6 Nucleated Red Blood Cells % 0.0 Neutrophils # 7.1 Lymphocytes # 1.6 Monocytes # 0.9 Eosinophils # 0.3 Basophils # 0.1 Nucleated Red Blood Cells # 0.0 Sodium Level 140 Potassium Level 3.5 Chloride Level 104 Carbon Dioxide Level 24 Anion Gap 16 Blood Urea Nitrogen 32 #H Creatinine 1.57 H Glucose Level 130 Calcium Level 9.9 Phosphorus Level 3.1 # Magnesium Level 2.0 Test 01/18/17 06:25 Bedside Glucose 134 Medications Medications Current Medications Acetaminophen (Tylenol Liquid) 650 mg Q4H PRN GTB PAIN OR TEMP ABOVE 38C; Start 01/07/17 at 13:00 Diphenhydramine HCl (Benadryl) 25 mg Q6H PRN GTB ITCHING Last administered on 02:12; Admin Dose 25 MG; Start 01/07/17 at 13:00 Multivit/Ca Carb/ B Cmplx/FA/Prenat (Macrina-Brigitte) 1 tab DAILY GTB Last administered on 01/17/17 09:52; Admin Dose 1 TAB; Start 01/08/17 at 09:00 Ondansetron HCl (Zofran Tab) 4 mg Q4H PRN GTB NAUSEA AND/OR VOMITING Last administered on 01/15/17 05:07; Admin Dose 4 MG; Start 01/07/17 at 13:00 Miscellaneous Information 1 ea NOTE XX ; Start 01/07/17 at 23:45 Glucose (Glutose) 15 gm Q15M PRN PO DECREASED GLUCOSE; Start 01/07/17 at 23:45 Glucose (Glutose) 22.5 gm Q15M PRN PO DECREASED GLUCOSE; Start 01/07/17 at 23:45 Dextrose (D50w Syringe) 25 ml Q15M PRN IV DECREASED GLUCOSE; Start 01/07/17 at 23:45 Dextrose (D50w Syringe) 50 ml Q15M PRN IV DECREASED GLUCOSE; Start 01/07/17 at 23:45 Glucagon (Glucagen) 1 mg Q15M PRN IM DECREASED GLUCOSE; Start 01/07/17 at 23:45 Glucose (Glutose) 15 gm Q15M PRN BUCCAL DECREASED GLUCOSE; Start 01/07/17 at 23: 45 [facility]isc[facility] This patient lopez... PRN PRN XX WOUND CARE; Start 01/08/17 at 07:30 Insulin Aspart NOVOLOG *MILD* ALGORI... Q6 SC Last administered on 01/17/17 06 :11; Admin Dose 1 UNIT; Start 01/08/17 at 12:00 Caspofungin/ Sodium Chloride (Cancidas/NS) 250 ml @ 250 mls/hr Q24H IVPB Last administered on 01/17/17 12:21; Admin Dose 250 MLS/HR; Start 01/09/17 at 12:00 Heparin Sodium (Porcine) (Heparin (5000 Units/0.5 ml)) 5,000 unit BID SC Last administered on 01/17/17 20:48; Admin Dose 5,000 UNIT; Start 01/10/17 at 21:00 Lorazepam (Ativan) 1 mg Q6H PRN PO Agitation Last administered on 01/15/17 05: 07; Admin Dose 1 MG; Start 01/10/17 at 13:30 Linezolid 600 mg 600 mg BID PO Last administered on 01/17/17 20:45; Admin Dose 600 MG; Start 01/10/17 at 15:00 Midazolam HCl (Versed) 50 ml @ 1 mls/hr TITRATE IV ; Start 01/11/17 at 11:00 Midodrine (Proamatine) 5 mg BID@09,17 NGT Last administered on 01/17/17 18:31 ; Admin Dose 5 MG; Start 01/12/17 at 09:00 Escitalopram Oxalate 10 mg 10 mg DAILY GTB Last administered on 01/17/17 09:52 ; Admin Dose 10 MG; Start 01/13/17 at 09:00 Norepinephrine 16 mg/Dextrose 500 ml @ 1.87 mls/hr TITRATE IV ; Start 01/15/17 at 23:45 Meropenem/Sodium Chloride (Merrem 500mg/50 ml(Pmx)) 50 ml @ 200 mls/hr Q24H IVPB ; Start 01/18/17 at 14:00 CHARLIE BUSBY DO Jan 18, 2017 08:38
--- NOTE | 2017-01-18 09:14 | RADRPT ---
PROCEDURE: XR Chest 1 view. CLINICAL INDICATION: Shortness of breath TECHNIQUE: AP views of the chest was obtained. COMPARISON: Yesterday FINDINGS: The heart is large. Calcified atherosclerosis is noted in the aorta. Tracheostomy tube is stable an d appears in grossly appropriate location. Right-sided dialysis catheter is unchanged. Left-sided dual chamber pacemaker has its leads over the heart and is stable. Patchy potential infiltrates in the bilateral lower lobes are unchanged and the lungs are hypoinflated. The osseous structures are unchanged. IMPRESSION: Cardiomegaly with calcified atherosclerosis in the aorta. Stable patchy potential infiltrates in the bilateral lower lobes. Hypoinflated lungs. RPTAT: AA .Henry Flores MD, Date Time Electronically viewed and signed by .Henry Flores MD, on 01/18/2017 09:13 .P/
[2017-01-18] MEDS: ZYVOX 600 MG TAB PO SCH ×2 (09:55→21:00)
[2017-01-18] MEDS: MULTIVIT/CA CARB/B CMPLX/FA TAB GTB SCH (09:55)
[2017-01-18] MEDS: MIDODRINE 5 MG TAB NGT SCH ×2 (09:55→17:49)
[2017-01-18] MEDS: ESCITALOPRAM 10 MG TAB GTB SCH (09:56)
--- NOTE | 2017-01-18 10:54 | CONS ---
Date/Time of Note Date/Time of Note DATE: 01/18/17 TIME: 10:53 Consult Date/Type/Reason Admit Date/Time Jan 07, 2017 at 12:43 Initial Consult Date 01/08/17 Type of Consultation: Pulmonary ICU Ordering Provider: YAYO EDGAR DO Subjective Patient improving slowly, decrease FiO2 and PEEP. Currently requiring low-dose Levophed on hemodialysis Objective Vital Signs Date Time Temp Pulse Resp B/P Pulse Ox O2 Delivery O2 Flow Rate FiO2 01/18/17 10:15 87 01/18/17 08:00 16 01/18/17 07:00 104/60 95 Mechanical Ventilator 01/18/17 05:10 65 01/18/17 04:00 99.2 Intake and Output 01/17/17 01/17/17 01/18/17 15:00 23:00 07:00 Intake Total 622.500 ml 1217.500 ml 615.000 ml Output Total 50 ml 3050 ml 160 ml Balance 572.500 ml -1832.500 ml 455.000 ml Exam PHYSICAL EXAMINATION GENERAL: Chronically ill-appearing lady intubated on mechanical ventilation VITAL SIGNS: see below. HEENT: Pupils equal, round, and reactive to light. Tracheostomy site clean and intact. CARDIAC: S1, S2, 1/6 systolic ejection murmur CHEST: Diminished air entry bilaterally. Few rales right base ABDOMEN: Mildly distended. Bowel sounds present no guarding or rebound EXTREMITIES: No cyanosis, clubbing edema +1 NEUROLOGIC: Generalized weakness Results/Medications Result Diagram: 01/18/17 0528 01/18/17 0528 Results 24 hrs Laboratory Tests Test 01/17/17 12:20 01/17/17 18:31 01/17/17 20:47 01/18/17 05:28 Bedside Glucose 107 96 115 White Blood Count 10.1 Red Blood Count 3.55 L Hemoglobin 9.9 L Hematocrit 33.6 L Mean Corpuscular Volume 94.6 Mean Corpuscular Hemoglobin 27.9 L Mean Corpuscular Hemoglobin Concent 29.5 L Red Cell Distribution Width 19.9 H Platelet Count 190 # Mean Platelet Volume 12.8 H Neutrophils % 70.4 Lymphocytes % 16.3 Monocytes % 8.9 Eosinophils % 3.3 Basophils % 0.6 Nucleated Red Blood Cells % 0.0 Neutrophils # 7.1 Lymphocytes # 1.6 Monocytes # 0.9 Eosinophils # 0.3 Basophils # 0.1 Nucleated Red Blood Cells # 0.0 Sodium Level 140 Potassium Level 3.5 Chloride Level 104 Carbon Dioxide Level 24 Anion Gap 16 Blood Urea Nitrogen 32 #H Creatinine 1.57 H Glucose Level 130 Calcium Level 9.9 Phosphorus Level 3.1 # Magnesium Level 2.0 Test 01/18/17 06:25 Bedside Glucose 134 Medications Current Medications Acetaminophen (Tylenol Liquid) 650 mg Q4H PRN GTB PAIN OR TEMP ABOVE 38C; Start 01/07/17 at 13:00 Diphenhydramine HCl (Benadryl) 25 mg Q6H PRN GTB ITCHING Last administered on 02:12; Admin Dose 25 MG; Start 01/07/17 at 13:00 Multivit/Ca Carb/ B Cmplx/FA/Prenat (Macrina-Brigitte) 1 tab DAILY GTB Last administered on 01/18/17 09:55; Admin Dose 1 TAB; Start 01/08/17 at 09:00 Ondansetron HCl (Zofran Tab) 4 mg Q4H PRN GTB NAUSEA AND/OR VOMITING Last administered on 01/15/17 05:07; Admin Dose 4 MG; Start 01/07/17 at 13:00 Miscellaneous Information 1 ea NOTE XX ; Start 01/07/17 at 23:45 Glucose (Glutose) 15 gm Q15M PRN PO DECREASED GLUCOSE; Start 01/07/17 at 23:45 Glucose (Glutose) 22.5 gm Q15M PRN PO DECREASED GLUCOSE; Start 01/07/17 at 23:45 Dextrose (D50w Syringe) 25 ml Q15M PRN IV DECREASED GLUCOSE; Start 01/07/17 at 23:45 Dextrose (D50w Syringe) 50 ml Q15M PRN IV DECREASED GLUCOSE; Start 01/07/17 at 23:45 Glucagon (Glucagen) 1 mg Q15M PRN IM DECREASED GLUCOSE; Start 01/07/17 at 23:45 Glucose (Glutose) 15 gm Q15M PRN BUCCAL DECREASED GLUCOSE; Start 01/07/17 at 23: 45 Miscellaneous Information (Pending [facility] Order For Wound Care) This patient lopez... PRN PRN XX WOUND CARE; Start 01/08/17 at 07:30 Insulin Aspart NOVOLOG *MILD* ALGORI... Q6 SC Last administered on 01/17/17 06 :11; Admin Dose 1 UNIT; Start 01/08/17 at 12:00 Caspofungin/ Sodium Chloride (Cancidas/NS) 250 ml @ 250 mls/hr Q24H IVPB Last administered on 01/17/17 12:21; Admin Dose 250 MLS/HR; Start 01/09/17 at 12:00 Heparin Sodium (Porcine) (Heparin (5000 Units/0.5 ml)) 5,000 unit BID SC Last administered on 01/17/17 20:48; Admin Dose 5,000 UNIT; Start 01/10/17 at 21:00 Lorazepam (Ativan) 1 mg Q6H PRN PO Agitation Last administered on 01/15/17 05: 07; Admin Dose 1 MG; Start 01/10/17 at 13:30 Linezolid 600 mg 600 mg BID PO Last administered on 01/18/17 09:55; Admin Dose 600 MG; Start 01/10/17 at 15:00 Midazolam HCl (Versed) 50 ml @ 1 mls/hr TITRATE IV ; Start 01/11/17 at 11:00 Escitalopram Oxalate 10 mg 10 mg DAILY GTB Last administered on 01/18/17 09:56 ; Admin Dose 10 MG; Start 01/13/17 at 09:00 Norepinephrine 16 mg/Dextrose 500 ml @ 1.87 mls/hr TITRATE IV ; Start 01/15/17 at 23:45 Meropenem/Sodium Chloride (Merrem 500mg/50 ml(Pmx)) 50 ml @ 200 mls/hr Q24H IVPB ; Start 01/18/17 at 14:00 Midodrine (Proamatine) 10 mg BID@,17 NGT Last administered on 01/18/17 09:55 ; Admin Dose 10 MG; Start 01/18/17 at 09:00 Assessment/Plan Chief Complaint/Hosp Course IMP: 1. Acute on chronic hypoxemic respiratory failure possible component of worsening volume overload in addition to pneumonia. 2. UTI 3. VDRF 4. ESRD on HD status post hemodialysis today with volume removal 5. Anemia likely secondary to underlying renal disease RECS: 1. Decrease FiO2 and PEEP 2. Continue pulmonary toilet, will consider bronchoscopy if still having problems with secretions. Radiographically no evidence of lobar collapse. 3. Continue hemodialysis with volume removal 4. continue antibiotics per ID 5. continue Mucomyst 6. Continue Ativan and Lexapro. Critical care time 40 minutes Problems: RHONDA BUENROSTRO MD, [facility] Jan 18, 2017 10:54
--- NOTE | 2017-01-18 11:34 | CONS ---
Date/Time of Note Date/Time of Note DATE: 01/18/17 TIME: 11:33 Assessment/Plan Assessment/Plan Chief Complaint/Hosp Course No acute events, in hemodialysis, Levophed at 8 mics per minute, no fevers Temperature 99.2 pulse 82 respirations 20 blood pressure 105/60 saturation 95% on left on PEEP of 5 FiO2 of 65 WBC 10.1 H&H 9.9 and 33.6 platelets 190 Chest x-ray today revealed stable patchy potential infiltrates in the bilateral lower lobes Indwelling's: Trach, PEG, permanent pacemaker, right chest permacath Antibiotics: Cancidas, Zyvox, Merrem Microbiology: Urine culture growing Dilcia glabrata, wound culture growing enterococcus and coag negative staph species Allergy: Erythromycin, vancomycin Physical examination: Chronically ill-appearing elderly woman who is in no distress. Head atraumatic normocephalic, sclera nonicteric, neck is supple, tracheostomy present. Chest rise symmetrical, breath sounds diminished basis. Heart S1-S2. Abdomen soft, bowel tones present. Extremities no cyanosis Assessment: 1. Acute on chronic Hypoxemic Resp Failure secondary to fluid overload and possible pneumonia 2. UTI 3. VDRF 4. ESRD on HD 5. Sacral decubitus Plan: Remains on Levophed but overall improving, PEEP and FiO2 being titrated down, continue antibiotics, local wound care, vent management per pulmonary Discussed with staff Problems: Consultation Date/Type/Reason Admit Date/Time Jan 07, 2017 at 12:43 Initial Consult Date 01/08/17 Type of Consultation: ID Referring Provider: YAYO EDGAR DO Exam/Review of Systems Vital Signs Vitals Vital Signs Date Time Temp Pulse Resp B/P Pulse Ox O2 Delivery O2 Flow Rate FiO2 01/18/17 11:04 88 18 01/18/17 07:00 104/60 95 Mechanical Ventilator 01/18/17 05:10 65 01/18/17 04:00 99.2 Intake and Output 01/17/17 01/17/17 01/18/17 15:00 23:00 07:00 Intake Total 622.500 ml 1217.500 ml 615.000 ml Output Total 50 ml 3050 ml 160 ml Balance 572.500 ml -1832.500 ml 455.000 ml Results Result Diagram: 01/18/17 0528 01/18/17 0528 Results 24 hrs Laboratory Tests Test 01/17/17:20 01/17/17 18:31 01/17/17 20:47 01/18/17 05:28 Bedside Glucose 107 96 115 White Blood Count 10.1 Red Blood Count 3.55 L Hemoglobin 9.9 L Hematocrit 33.6 L Mean Corpuscular Volume 94.6 Mean Corpuscular Hemoglobin 27.9 L Mean Corpuscular Hemoglobin Concent 29.5 L Red Cell Distribution Width 19.9 H Platelet Count 190 # Mean Platelet Volume 12.8 H Neutrophils % 70.4 Lymphocytes % 16.3 Monocytes % 8.9 Eosinophils % 3.3 Basophils % 0.6 Nucleated Red Blood Cells % 0.0 Neutrophils # 7.1 Lymphocytes # 1.6 Monocytes # 0.9 Eosinophils # 0.3 Basophils # 0.1 Nucleated Red Blood Cells # 0.0 Sodium Level 140 Potassium Level 3.5 Chloride Level 104 Carbon Dioxide Level 24 Anion Gap 16 Blood Urea Nitrogen 32 #H Creatinine 1.57 H Glucose Level 130 Calcium Level 9.9 Phosphorus Level 3.1 # Magnesium Level 2.0 Test 01/18/17 06:25 Bedside Glucose 134 Medications Medications Current Medications Acetaminophen (Tylenol Liquid) 650 mg Q4H PRN GTB PAIN OR TEMP ABOVE 38C; Start 01/07/17 at 13:00 Diphenhydramine HCl (Benadryl) 25 mg Q6H PRN GTB ITCHING Last administered on 02:12; Admin Dose 25 MG; Start 01/07/17 at 13:00 Multivit/Ca Carb/ B Cmplx/FA/Prenat (Macrina-Brigitte) 1 tab DAILY GTB Last administered on 01/18/17 09:55; Admin Dose 1 TAB; Start 01/08/17 at 09:00 Ondansetron HCl (Zofran Tab) 4 mg Q4H PRN GTB NAUSEA AND/OR VOMITING Last administered on 01/15/17 05:07; Admin Dose 4 MG; Start 01/07/17 at 13:00 Miscellaneous Information 1 ea NOTE XX ; Start 01/07/17 at 23:45 Glucose (Glutose) 15 gm Q15M PRN PO DECREASED GLUCOSE; Start 01/07/17 at 23:45 Glucose (Glutose) 22.5 gm Q15M PRN PO DECREASED GLUCOSE; Start 01/07/17 at 23:45 Dextrose (D50w Syringe) 25 ml Q15M PRN IV DECREASED GLUCOSE; Start 01/07/17 at 23:45 Dextrose (D50w Syringe) 50 ml Q15M PRN IV DECREASED GLUCOSE; Start 01/07/17 at 23:45 Glucagon (Glucagen) 1 mg Q15M PRN IM DECREASED GLUCOSE; Start 01/07/17 at 23:45 Glucose (Glutose) 15 gm Q15M PRN BUCCAL DECREASED GLUCOSE; Start 01/07/17 at 23: 45 Miscellaneous Information (Pending [facility] Order For Wound Care) This patient lopez... PRN PRN XX WOUND CARE; Start 01/08/17 at 07:30 Insulin Aspart NOVOLOG *MILD* ALGORI... Q6 SC Last administered on 01/17/17 06 :11; Admin Dose 1 UNIT; Start 01/08/17 at 12:00 Caspofungin/ Sodium Chloride (Cancidas/NS) 250 ml @ 250 mls/hr Q24H IVPB Last administered on 01/17/17 12:21; Admin Dose 250 MLS/HR; Start 01/09/17 at 12:00 Heparin Sodium (Porcine) (Heparin (5000 Units/0.5 ml)) 5,000 unit BID SC Last administered on 01/17/17 20:48; Admin Dose 5,000 UNIT; Start 01/10/17 at 21:00 Lorazepam (Ativan) 1 mg Q6H PRN PO Agitation Last administered on 01/15/17 05: 07; Admin Dose 1 MG; Start 01/10/17 at 13:30 Linezolid 600 mg 600 mg BID PO Last administered on 01/18/17 09:55; Admin Dose 600 MG; Start 01/10/17 at 15:00 Midazolam HCl (Versed) 50 ml @ 1 mls/hr TITRATE IV ; Start 01/11/17 at 11:00 Escitalopram Oxalate 10 mg 10 mg DAILY GTB Last administered on 01/18/17 09:56 ; Admin Dose 10 MG; Start 01/13/17 at 09:00 Norepinephrine 16 mg/Dextrose 500 ml @ 1.87 mls/hr TITRATE IV ; Start 01/15/17 at 23:45 Meropenem/Sodium Chloride (Merrem 500mg/50 ml(Pmx)) 50 ml @ 200 mls/hr Q24H IVPB ; Start 01/18/17 at 14:00 Midodrine (Proamatine) 10 mg BID@ NGT Last administered on 01/18/17t 09:55 ; Admin Dose 10 MG; Start 01/18/17 at 09:00 AI FUNEZ NP Jan 18, 2017 11:34
[2017-01-18] MEDS: CASPOFUNGIN 50 MG in SOD CHLORIDE 0.9% 250 ML IVPB SCH (11:39)
[2017-01-18] MEDS: HEPARIN 5,000 UNIT/0.5 ML VIAL SC SCH ×2 (11:41→21:04)
[2017-01-18] MEDS: MEROPENEM 500MG/50 ML (PMX) 50 ML IVPB SCH (14:54)
[2017-01-18] MEDS: oxyCODONE 5 MG TAB PO PRN (15:25)
[2017-01-18] MEDS: ACETAMINOPHEN 650MG/20.3ML CUP GTB PRN (23:14)
[2017-01-19] VITALS (100 sets, daily range): BP systolic 55–136; BP diastolic 42–92; PULSE 70–89; RESP 0–34
[2017-01-19] MEDS: ALBUTEROL 18 GM INHALER INH SCH ×4 (01:00→19:52)
[2017-01-19] MEDS: IPRATROPIUM (HFA) 12.9 GM INHALER INH SCH ×4 (01:00→19:52)
[2017-01-19] MEDS: ACETYLCYSTEINE 20% 4 ML VIAL NEB SCH ×4 (01:00→19:52)
[2017-01-19] MEDS: DIPHENHYDRAMINE 25 MG CAP GTB PRN ×2 (01:33→21:19)
[2017-01-19] MEDS: INSULIN ASPART [NOVOLOG] 3 ML PEN SC SCH ×4 (06:00→23:54)
[2017-01-19 06:27] LABS: ADD SCAN DIFF NO
[2017-01-19 06:37] LABS: BASOPHIL # 0.1 10^3/ul (0.0-0.1); BASOPHILS % 0.5 % (0.0-2.0); EOSINOPHILS # 0.4 10^3/ul (0.0-0.5); EOSINOPHILS % 4.7 % (0.0-7.0); HEMATOCRIT 30.7 % (37.0-47.0); HEMOGLOBIN 9.5 g/dl (12.0-16.0); LYMPHOCYTES # 1.9 10^3/ul (0.8-2.9); LYMPHOCYTES % 20.3 % (15.0-51.0); MEAN CORPUSCULAR HEMOGLOBIN 28.4 pg (29.0-33.0); MEAN CORPUSCULAR HGB CONC 30.9 g/dl (32.0-37.0); MEAN CORPUSCULAR VOLUME 91.9 fl (82.0-101.0); MEAN PLATELET VOLUME 10.8 fl (7.4-10.4); MONOCYTE # 0.9 10^3/ul (0.3-0.9); MONOCYTES % 9.7 % (0.0-11.0); NEUTROPHILS % 64.5 % (39.0-77.0); PLATELET COUNT 168 10^3/UL (140-415); RED BLOOD COUNT 3.34 10^6/ul (4.20-5.40); RED CELL DISTRIBUTION WIDTH 19.3 % (11.5-14.5); WHITE BLOOD COUNT 9.3 10^3/ul (4.8-10.8)
[2017-01-19] MEDS: LANSOPRAZOLE 30 MG CAP GTB SCH (06:38)
[2017-01-19 07:01] LABS: CALCIUM 9.5 mg/dl (8.4-10.2); CREATININE 1.76 mg/dl (0.44-1.00); MAGNESIUM 1.8 mg/dl (1.7-2.5); PHOSPHORUS 2.5 mg/dl (2.5-4.9); POTASSIUM 3.7 mmol/L (3.5-5.1)
--- NOTE | 2017-01-19 07:26 | PN ---
Date/Time of Note Date/Time of Note DATE: 01/19/17 TIME: 07:23 Assessment/Plan VTE Prophylaxis VTE Prophylaxis Intervention: SCD's Lines/Catheters IV Catheter Type (from Nrs): Peripheral IV Urinary Cath still in place: No Assessment/Plan Chief Complaint/Hosp Course 1. acute on chronic hypoxemic hypercapnic respiratory failure: s/p trach: vent dep. still with severe hypoxemia 2. Pafib; currently remains in NSR: off of amiodarone now 3. HX Sick sinus syndrome: s/p PPM: pacemaker was interrogated and personally reviewed on 01/08/17 with normal functioning pacemaker. 4. pneumonia 5. ESRD on HD 6. HX HTN: stable now 7. severe anemia: s/p multiple transfusion 8. severe hypoxemia 9. SHOCK: still on levophed drip. unable to wean off so far. cont vent support not anticoagulated due to concerns about bleeding and severe anemia. abx as per IM/ ID and pulm team CONT HD HR has remained stable. will try to wean off levophed once BP is stbale. correct lytes prn transfusion prn Off of AMIODARONE due to severe hypoxemia, specially since pt has remained in NSR. cont ICU care consider bronchoscopy and lavage?? more than 36 minutes of critical care time was spent in management and treatment of this critically ill pt, excluding any procedures. Problems: Subjective 24 Hr Interval Summary Free Text/Dictation CARDIOLOGY FOLLOW UP PROGRESS NOTE/ ICU NOTE: SUBJECTIVE: d/w staff and Dr Valadez. rhythm was reviewed. pt remains in NSR. no afib noted. pt still with severe hypoxemia and requiring high O2 pt is still s/p trach on vent in ICU and on levophed drip. unable to wean off still. pt with no chest pain. pt with thick sputum as per RN report. OBJECTIVE. General: s/p trach on vent. in no distress HEENT: NC/AT. pupils are equal. round. NECK: s/p trach. no stridor. CV: RRR. systolic murmur; no gallop or rubs. PULM: no wheezing but + rhonchi anteriorly diffusely GI: SOFT, NT, ND, no rebound or guarding . s/p PEG Extremity: trace B/L LE edema. no clubbing. neuro: awake and alert responds appropriately Psych: calm, pleasant rectal: deferred Derm: + echymosis chest: s/p R mastectomy and HD ACCESS in place. Exam/Review of Systems Vital Signs Vitals Vital Signs Date Time Temp Pulse Resp B/P Pulse Ox O2 Delivery O2 Flow Rate FiO2 01/19/17 06:45 78 27 105/69 92 01/19/17 06:00 Mechanical Ventilator 01/19/17 05:00 75 01/19/17 04:00 99.1 Intake and Output 01/18/17 01/18/17 01/19/17 15:00 23:00 07:00 Intake Total 1306.870 ml 641.85 ml 615.59 ml Output Total 2200 ml 20 ml 10 ml Balance -893.130 ml 621.85 ml 605.59 ml Results Result Diagram: 01/19/17 0540 01/19/17 0540 Results 24 hrs Laboratory Tests Test 01/18/17 11:52 01/18/17 16:45 01/18/17 23:39 01/19/17 05:40 Bedside Glucose 161 121 139 White Blood Count 9.3 Red Blood Count 3.34 L Hemoglobin 9.5 L Hematocrit 30.7 L Mean Corpuscular Volume 91.9 Mean Corpuscular Hemoglobin 28.4 L Mean Corpuscular Hemoglobin Concent 30.9 L Red Cell Distribution Width 19.3 H Platelet Count 168 Mean Platelet Volume 10.8 H Neutrophils % 64.5 Lymphocytes % 20.3 Monocytes % 9.7 Eosinophils % 4.7 Basophils % 0.5 Nucleated Red Blood Cells % 0.0 Neutrophils # 6.0 Lymphocytes # 1.9 Monocytes # 0.9 Eosinophils # 0.4 Basophils # 0.1 Nucleated Red Blood Cells # 0.0 Sodium Level 133 L Potassium Level 3.7 Chloride Level 98 Carbon Dioxide Level 26 Anion Gap 13 Blood Urea Nitrogen 42 H Creatinine 1.76 H Glucose Level 123 Calcium Level 9.5 Phosphorus Level 2.5 Magnesium Level 1.8 Test 01/19/17 06:39 Bedside Glucose 113 Medications Medications Current Medications Acetaminophen (Tylenol Liquid) 650 mg Q4H PRN GTB PAIN OR TEMP ABOVE 38C Last administered on 01/18/17t 23:14; Admin Dose 650 MG; Start 01/07/17 at 13:00 Diphenhydramine HCl (Benadryl) 25 mg Q6H PRN GTB ITCHING Last administered on 01:33; Admin Dose 25 MG; Start 01/07/17 at 13:00 Multivit/Ca Carb/ B Cmplx/FA/Prenat (Macrina-Brigitte) 1 tab DAILY GTB Last administered on 01/18/17 09:55; Admin Dose 1 TAB; Start 01/08/17 at 09:00 Ondansetron HCl (Zofran Tab) 4 mg Q4H PRN GTB NAUSEA AND/OR VOMITING Last administered on 01/15/17 05:07; Admin Dose 4 MG; Start 01/07/17 at 13:00 Miscellaneous Information 1 ea NOTE XX ; Start 01/07/17 at 23:45 Glucose (Glutose) 15 gm Q15M PRN PO DECREASED GLUCOSE; Start 01/07/17 at 23:45 Glucose (Glutose) 22.5 gm Q15M PRN PO DECREASED GLUCOSE; Start 01/07/17 at 23:45 Dextrose (D50w Syringe) 25 ml Q15M PRN IV DECREASED GLUCOSE; Start 01/07/17 at 23:45 Dextrose (D50w Syringe) 50 ml Q15M PRN IV DECREASED GLUCOSE; Start 01/07/17 at 23:45 Glucagon (Glucagen) 1 mg Q15M PRN IM DECREASED GLUCOSE; Start 01/07/17 at 23:45 Glucose (Glutose) 15 gm Q15M PRN BUCCAL DECREASED GLUCOSE; Start 01/07/17 at 23: 45 Miscellaneous Information (Pending [facility] Order For Wound Care) This patient lopez... PRN PRN XX WOUND CARE; Start 01/08/17 at 07:30 Insulin Aspart NOVOLOG *MILD* ALGORI... Q6 SC Last administered on 01/18/17 11 :59; Admin Dose 1 UNIT; Start 01/08/17 at 12:00 Caspofungin/ Sodium Chloride (Cancidas/NS) 250 ml @ 250 mls/hr Q24H IVPB Last administered on 01/18/17 11:39; Admin Dose 250 MLS/HR; Start 01/09/17 at 12:00 Heparin Sodium (Porcine) (Heparin (5000 Units/0.5 ml)) 5,000 unit BID SC Last administered on 01/18/17 21:04; Admin Dose 5,000 UNIT; Start 01/10/17 at 21:00 Lorazepam (Ativan) 1 mg Q6H PRN PO Agitation Last administered on 01/15/17 05: 07; Admin Dose 1 MG; Start 01/10/17 at 13:30 Linezolid 600 mg 600 mg BID PO Last administered on 01/18/17 21:00; Admin Dose 600 MG; Start 01/10/17 at 15:00 Midazolam HCl (Versed) 50 ml @ 1 mls/hr TITRATE IV ; Start 01/11/17 at 11:00 Escitalopram Oxalate 10 mg 10 mg DAILY GTB Last administered on 01/18/17 09:56 ; Admin Dose 10 MG; Start 01/13/17 at 09:00 Norepinephrine 16 mg/Dextrose 500 ml @ 1.87 mls/hr TITRATE IV Last administered on 01/18/17 11:40; Admin Dose 11.25 MLS/HR; Start 01/15/17 at 23:45 Meropenem/Sodium Chloride (Merrem 500mg/50 ml(Pmx)) 50 ml @ 200 mls/hr Q24H IVPB Last administered on 01/18/17 14:54; Admin Dose 200 MLS/HR; Start at 14:00 Midodrine (Proamatine) 10 mg BID@09,17 NGT Last administered on 01/18/17 17:49 ; Admin Dose 10 MG; Start 01/18/17 at 09:00 Oxycodone HCl (Roxicodone) 5 mg Q4H PRN PO PAIN Last administered on 01/18/17 15:25; Admin Dose 5 MG; Start 01/18/17 at 12:00 KIAH GARCIA MD Jan 19, 2017 07:26
[2017-01-19] MEDS: MULTIVIT/CA CARB/B CMPLX/FA TAB GTB SCH (08:10)
[2017-01-19] MEDS: LORAZEPAM 0.5 MG TAB PO PRN (08:10)
[2017-01-19] MEDS: MIDODRINE 5 MG TAB NGT SCH ×2 (08:10→17:39)
[2017-01-19] MEDS: ZYVOX 600 MG TAB PO SCH ×2 (08:10→20:40)
[2017-01-19] MEDS: ESCITALOPRAM 10 MG TAB GTB SCH (08:10)
[2017-01-19] MEDS: oxyCODONE 5 MG TAB PO PRN (08:11)
--- NOTE | 2017-01-19 08:14 | PN ---
Date/Time of Note Date/Time of Note DATE: 01/19/17 TIME: 08:11 Assessment/Plan VTE Prophylaxis VTE Prophylaxis Intervention: other Lines/Catheters IV C[facility]ter Type (from [facility]): Peripheral IV Urinary Cath still in place: No Assessment/Plan Chief Complaint/Hosp Course 1. hypoxemic respiratory failure. etiology likely multifactorial, chf, ? pna,, ? Anxiety -CT angios showed interstitial edema pulmonary edema, no evidence of PE FiO2 remains high plan -We will attempt daily dialysis for volume removal. If hemodynamically able to be tolerated -Follow-up with pulmonary -Monitor 2. septic shock Secondary to UTI, pneumonia, UUrine culture is positive yeast. chest x-ray suggests possible infiltrate -Patient on pressor support, broad-spectrum antibiotics/antifungal -Wean off pressors slowly Follow-up with infectious disease 3. Encephalopathy, acute. Etiology is likely secondary to toxic metabolic -Mental status appears to be improving continue to monitor 4. Dysphagia, status post percutaneous endoscopic gastrostomy. -Continue tube feeding. 5. ESRD -HD today 7. Atrial fibrillation, currently rate controlled. Continue medical management. -Off anticoagulation secondary to previous bleed - Continue beta louise. We will follow up with cardiology. 8. Anemia. Continue to monitor hemoglobin and hematocrit levels. Continue Epogen 9. Mineral bone disease. Continue to monitor calcium and phosphorus levels. 10. History of breast cancer status post bilateral mastectomy. 11. Congestive heart failure. Continue medical management. 12. Diabetes. Continue Accu-Cheks and sliding scale. 13. History of Clostridium difficile colitis, status post treatment. 14. Gastrointestinal and deep venous thrombosis prophylaxis. Continue Protonix , SCD, heparin 15. Hypokalemia replete with potassium chloride as needed 16. Anxiety disorder. Will start patient on Lexapro 17. Hypokalemia. Monitor and replete potassium chloride as needed Please note I spent over 35 minutes critical care time with this patient Problems: Subjective 24 Hr Interval Summary Free Text/Dictation Patient remains critical condition. Remains on pressor support FiO2 levels were increased overnight Patient was febrile overnight, continue dialysis Exam/Review of Systems Vital Signs Vitals Vital Signs Date Time Temp Pulse Resp B/P Pulse Ox O2 Delivery O2 Flow Rate FiO2 01/19/17 06:45 78 27 105/69 92 01/19/17 06:00 Mechanical Ventilator 01/19/17 05:00 75 01/19/17 04:00 99.1 Intake and Output 01/18/17 01/18/17 01/19/17 15:00 23:00 07:00 Intake Total 1306.870 ml 641.85 ml 615.59 ml Output Total 2200 ml 20 ml 10 ml Balance -893.130 ml 621.85 ml 605.59 ml Exam HEENT: Head is normocephalic. NECK: Supple. HEART: Irregular LUNGS: Show diminished breath sounds at base. ABDOMEN: Soft, nontender to palpation without rebound or guarding. EXTREMITIES: Negative for clubbing, cyanosis. Positive edema, DERMATOLOGIC: No rashes. MUSCULOSKELETAL: No joint effusions, NEUROLOGIC: No change in exam. Results Result Diagram: 01/19/17 0540 01/19/17 0540 Results 24 hrs Laboratory Tests Test 01/18/17 11:52 01/18/17 16:45 01/18/17 23:39 01/19/17 05:40 Bedside Glucose 161 121 139 White Blood Count 9.3 Red Blood Count 3.34 L Hemoglobin 9.5 L Hematocrit 30.7 L Mean Corpuscular Volume 91.9 Mean Corpuscular Hemoglobin 28.4 L Mean Corpuscular Hemoglobin Concent 30.9 L Red Cell Distribution Width 19.3 H Platelet Count 168 Mean Platelet Volume 10.8 H Neutrophils % 64.5 Lymphocytes % 20.3 Monocytes % 9.7 Eosinophils % 4.7 Basophils % 0.5 Nucleated Red Blood Cells % 0.0 Neutrophils # 6.0 Lymphocytes # 1.9 Monocytes # 0.9 Eosinophils # 0.4 Basophils # 0.1 Nucleated Red Blood Cells # 0.0 Sodium Level 133 L Potassium Level 3.7 Chloride Level 98 Carbon Dioxide Level 26 Anion Gap 13 Blood Urea Nitrogen 42 H Creatinine 1.76 H Glucose Level 123 Calcium Level 9.5 Phosphorus Level 2.5 Magnesium Level 1.8 Test 01/19/17 06:39 Bedside Glucose 113 Medications Medications Current Medications Acetaminophen (Tylenol Liquid) 650 mg Q4H PRN GTB PAIN OR TEMP ABOVE 38C Last administered on 01/18/17 23:14; Admin Dose 650 MG; Start 01/07/17 at 13:00 Diphenhydramine HCl (Benadryl) 25 mg Q6H PRN GTB ITCHING Last administered on 01:33; Admin Dose 25 MG; Start 01/07/17 at 13:00 Multivit/Ca Carb/ B Cmplx/FA/Prenat (Macrina-Brigitte) 1 tab DAILY GTB Last administered on 01/18/17 09:55; Admin Dose 1 TAB; Start 01/08/17 at 09:00 Ondansetron HCl (Zofran Tab) 4 mg Q4H PRN GTB NAUSEA AND/OR VOMITING Last administered on 01/15/17 05:07; Admin Dose 4 MG; Start 01/07/17 at 13:00 Miscellaneous Information 1 ea NOTE XX ; Start 01/07/17 at 23:45 Glucose (Glutose) 15 gm Q15M PRN PO DECREASED GLUCOSE; Start 01/07/17 at 23:45 Glucose (Glutose) 22.5 gm Q15M PRN PO DECREASED GLUCOSE; Start 01/07/17 at 23:45 Dextrose (D50w Syringe) 25 ml Q15M PRN IV DECREASED GLUCOSE; Start 01/07/17 at 23:45 Dextrose (D50w Syringe) 50 ml Q15M PRN IV DECREASED GLUCOSE; Start 01/07/17 at 23:45 Glucagon (Glucagen) 1 mg Q15M PRN IM DECREASED GLUCOSE; Start 01/07/17 at 23:45 Glucose (Glutose) 15 gm Q15M PRN BUCCAL DECREASED GLUCOSE; Start 01/07/17 at 23: 45 Miscellaneous Information (Pending [facility] Order For Wound Care) This patient lopez... PRN PRN XX WOUND CARE; Start 01/08/17 at 07:30 Insulin Aspart NOVOLOG *MILD* ALGORI... Q6 SC Last administered on 01/18/17 11 :59; Admin Dose 1 UNIT; Start 01/08/17 at 12:00 Caspofungin/ Sodium Chloride (Cancidas/NS) 250 ml @ 250 mls/hr Q24H IVPB Last administered on 01/18/17 11:39; Admin Dose 250 MLS/HR; Start 01/09/17 at 12:00 Heparin Sodium (Porcine) (Heparin (5000 Units/0.5 ml)) 5,000 unit BID SC Last administered on 01/18/17 21:04; Admin Dose 5,000 UNIT; Start 01/10/17 at 21:00 Lorazepam (Ativan) 1 mg Q6H PRN PO Agitation Last administered on 01/15/17 05: 07; Admin Dose 1 MG; Start 01/10/17 at 13:30 Linezolid 600 mg 600 mg BID PO Last administered on 01/18/17 21:00; Admin Dose 600 MG; Start 01/10/17 at 15:00 Midazolam HCl (Versed) 50 ml @ 1 mls/hr TITRATE IV ; Start 01/11/17 at 11:00 Escitalopram Oxalate 10 mg 10 mg DAILY GTB Last administered on 01/18/17 09:56 ; Admin Dose 10 MG; Start 01/13/17 at 09:00 Norepinephrine 16 mg/Dextrose 500 ml @ 1.87 mls/hr TITRATE IV Last administered on 01/18/17 11:40; Admin Dose 11.25 MLS/HR; Start 01/15/17 at 23:45 Meropenem/Sodium Chloride (Merrem 500mg/50 ml(Pmx)) 50 ml @ 200 mls/hr Q24H IVPB Last administered on 01/18/17 14:54; Admin Dose 200 MLS/HR; Start at 14:00 Midodrine (Proamatine) 10 mg BID@09,17 NGT Last administered on 01/18/17 17:49 ; Admin Dose 10 MG; Start 01/18/17 at 09:00 Oxycodone HCl (Roxicodone) 5 mg Q4H PRN PO PAIN Last administered on 01/18/17 15:25; Admin Dose 5 MG; Start 01/18/17 at 12:00 CHARLIE BUSBY DO Jan 19, 2017 08:14
[2017-01-19] MEDS: HEPARIN 5,000 UNIT/0.5 ML VIAL SC SCH ×2 (09:00→20:40)
--- NOTE | 2017-01-19 10:09 | RADRPT ---
PROCEDURE: XR Chest 1 view. CLINICAL INDICATION: Shortness of breath. TECHNIQUE: AP views of the chest were obtained. COMPARISON: January 18, 2017 FINDINGS: The heart is large. Calcified atherosclerosis is noted in the aorta. Tracheostomy tube is stable an d appears in grossly appropriate location. Right-sided dialysis catheter is unchanged. Left-sided dual chamber pacemaker has its leads over the heart and is unchanged. The lungs are hypoinflated. Ce ntral pulmonary vascular congestion and interstitial prominence in both lungs is stable. Superimpos ed patchy alveolar infiltrates in the bilateral lower lungs are stable. The osseous structures are stable. Surgical clips are seen over the left axilla. IMPRESSION: Cardiomegaly with calcified atherosclerosis in the aorta. Stable central pulmonary vascular congestion and interstitial prominence in both lungs. Stable mild infiltrates in the bilateral lower lungs. Hypoinflated lungs. RPTAT: AA .Henry Flores MD, Date Time Electronically viewed and signed by .Henry Flores MD, on 01/19/2017 10:09 .P/
[2017-01-19] MEDS ORDERED: LIDOCAINE 1% (MPF) 5 ML VIAL SC ONE (10:30)
--- NOTE | 2017-01-19 10:51 | CONS ---
Date/Time of Note Date/Time of Note DATE: 01/19/17 TIME: 10:49 Consult Date/Type/Reason Admit Date/Time Jan 07, 2017 at 12:43 Initial Consult Date 01/08/17 Type of Consultation: Pulmonary Ordering Provider: YAYO EDGAR DO Subjective Thick secretions from tracheostomy Increased oxygen requirements overnight Intermittent agitation but currently hemodynamically stable Febrile overnight. Objective Vital Signs Date Time Temp Pulse Resp B/P Pulse Ox O2 Delivery O2 Flow Rate FiO2 01/19/17 09:15 83 0 92/60 90 01/19/17 09:00 Mechanical Ventilator Trach Collar 01/19/17 08:00 98.8 01/19/17 08:00 75 Intake and Output 01/18/17 01/18/17 01/19/17 15:00 23:00 07:00 Intake Total 1306.870 ml 641.85 ml 615.59 ml Output Total 2200 ml 20 ml 10 ml Balance -893.130 ml 621.85 ml 605.59 ml Exam PHYSICAL EXAMINATION GENERAL: Chronically ill-appearing lady intubated on mechanical ventilation VITAL SIGNS: see below. HEENT: Pupils equal, round, and reactive to light. Tracheostomy site clean and intact. CARDIAC: S1, S2, 1/6 systolic ejection murmur CHEST: Diminished air entry bilaterally. Few rales right base ABDOMEN: Mildly distended. Bowel sounds present no guarding or rebound EXTREMITIES: No cyanosis, clubbing edema +1 NEUROLOGIC: Generalized weakness Results/Medications Result Diagram: 01/19/17 0540 01/19/17 0540 Results 24 hrs Laboratory Tests Test 01/18/17 11:52 01/18/17 16:45 01/18/17 23:39 01/19/17 05:40 Bedside Glucose 161 121 139 White Blood Count 9.3 Red Blood Count 3.34 L Hemoglobin 9.5 L Hematocrit 30.7 L Mean Corpuscular Volume 91.9 Mean Corpuscular Hemoglobin 28.4 L Mean Corpuscular Hemoglobin Concent 30.9 L Red Cell Distribution Width 19.3 H Platelet Count 168 Mean Platelet Volume 10.8 H Neutrophils % 64.5 Lymphocytes % 20.3 Monocytes % 9.7 Eosinophils % 4.7 Basophils % 0.5 Nucleated Red Blood Cells % 0.0 Neutrophils # 6.0 Lymphocytes # 1.9 Monocytes # 0.9 Eosinophils # 0.4 Basophils # 0.1 Nucleated Red Blood Cells # 0.0 Sodium Level 133 L Potassium Level 3.7 Chloride Level 98 Carbon Dioxide Level 26 Anion Gap 13 Blood Urea Nitrogen 42 H Creatinine 1.76 H Glucose Level 123 Calcium Level 9.5 Phosphorus Level 2.5 Magnesium Level 1.8 Test 01/19/17 06:39 Bedside Glucose 113 Medications Current Medications Acetaminophen (Tylenol Liquid) 650 mg Q4H PRN GTB PAIN OR TEMP ABOVE 38C Last administered on 01/18/17 23:14; Admin Dose 650 MG; Start 01/07/17 at 13:00 Diphenhydramine HCl (Benadryl) 25 mg Q6H PRN GTB ITCHING Last administered on 01:33; Admin Dose 25 MG; Start 01/07/17 at 13:00 Multivit/Ca Carb/ B Cmplx/FA/Prenat (Macrina-Brigitte) 1 tab DAILY GTB Last administered on 01/19/17 08:10; Admin Dose 1 TAB; Start 01/08/17 at 09:00 Ondansetron HCl (Zofran Tab) 4 mg Q4H PRN GTB NAUSEA AND/OR VOMITING Last administered on 01/15/17 05:07; Admin Dose 4 MG; Start 01/07/17 at 13:00 Miscellaneous Information 1 ea NOTE XX ; Start 01/07/17 at 23:45 Glucose (Glutose) 15 gm Q15M PRN PO DECREASED GLUCOSE; Start 01/07/17 at 23:45 Glucose (Glutose) 22.5 gm Q15M PRN PO DECREASED GLUCOSE; Start 01/07/17 at 23:45 Dextrose (D50w Syringe) 25 ml Q15M PRN IV DECREASED GLUCOSE; Start 01/07/17 at 23:45 Dextrose (D50w Syringe) 50 ml Q15M PRN IV DECREASED GLUCOSE; Start 01/07/17 at 23:45 Glucagon (Glucagen) 1 mg Q15M PRN IM DECREASED GLUCOSE; Start 01/07/17 at 23:45 Glucose (Glutose) 15 gm Q15M PRN BUCCAL DECREASED GLUCOSE; Start 01/07/17 at 23: 45 Miscellaneous Information (Pending [facility] Order For Wound Care) This patient lopez... PRN PRN XX WOUND CARE; Start 01/08/17 at 07:30 Insulin Aspart NOVOLOG *MILD* ALGORI... Q6 SC Last administered on 01/18/17 11 :59; Admin Dose 1 UNIT; Start 01/08/17 at 12:00 Caspofungin/ Sodium Chloride (Cancidas/NS) 250 ml @ 250 mls/hr Q24H IVPB Last administered on 01/18/17 11:39; Admin Dose 250 MLS/HR; Start 01/09/17 at 12:00 Heparin Sodium (Porcine) (Heparin (5000 Units/0.5 ml)) 5,000 unit BID SC Last administered on 01/18/17 21:04; Admin Dose 5,000 UNIT; Start 01/10/17 at 21:00 Lorazepam (Ativan) 1 mg Q6H PRN PO Agitation Last administered on 01/19/17 08: 10; Admin Dose 1 MG; Start 01/10/17 at 13:30 Linezolid 600 mg 600 mg BID PO Last administered on 01/19/17 08:10; Admin Dose 600 MG; Start 01/10/17 at 15:00 Midazolam HCl (Versed) 50 ml @ 1 mls/hr TITRATE IV ; Start 01/11/17 at 11:00 Escitalopram Oxalate 10 mg 10 mg DAILY GTB Last administered on 01/19/17 08:10 ; Admin Dose 10 MG; Start 01/13/17 at 09:00 Norepinephrine 16 mg/Dextrose 500 ml @ 1.87 mls/hr TITRATE IV Last administered on 01/18/17 11:40; Admin Dose 11.25 MLS/HR; Start 01/15/17 at 23:45 Meropenem/Sodium Chloride (Merrem 500mg/50 ml(Pmx)) 50 ml @ 200 mls/hr Q24H IVPB Last administered on 01/18/17 14:54; Admin Dose 200 MLS/HR; Start at 14:00 Midodrine (Proamatine) 10 mg BID@09,17 NGT Last administered on 01/19/17 08:10 ; Admin Dose 10 MG; Start 01/18/17 at 09:00 Oxycodone HCl (Roxicodone) 5 mg Q4H PRN PO PAIN Last administered on 01/19/17 08:11; Admin Dose 5 MG; Start 01/18/17 at 12:00 Assessment/Plan Chief Complaint/Hosp Course IMP: 1. Acute on chronic hypoxemic respiratory failure possible component of worsening volume overload in addition to pneumonia. Questionable aspergillus infection given thick mucoid secretions. 2. UTI 3. VDRF 4. ESRD on HD status post hemodialysis today with volume removal 5. Anemia likely secondary to underlying renal disease RECS: 1. Decrease FiO2 and PEEP 2. Continue pulmonary toilet, will consider bronchoscopy if still having problems with secretions. Radiographically no evidence of lobar collapse. 3. Continue hemodialysis with volume removal 4. continue antibiotics per ID, check IgE and aspergillus precipitants 5. continue Mucomyst 6. Continue Ativan and Lexapro. Critical care time 40 minutes Problems: RHONDA [facility]ROSTRO MD, [facility] Jan 19, 2017 10:51
--- NOTE | 2017-01-19 12:08 | CONS ---
Date/Time of Note Date/Time of Note DATE: 01/19/17 TIME: 12:06 Assessment/Plan Assessment/Plan Chief Complaint/Hosp Course Patient is in hemodialysis, lethargic, in no distress, Levophed at 4 mics per minute T-max 100.5 last night, T-current 98.8 pulse 83 respirations 20 blood pressure 92/60 saturation 90% on FiO2 of 75 WBC 9.3 H&H 9.5 and 30.7 platelets 168 no shift Chest x-ray this morning revealed stable mild infiltrates in bilateral lower lungs Indwelling's: Trach back right chest permacath peripheral IV, PPM Antibiotics: Cancidas, meropenem, Zyvox Microbiology: Urine culture growing Dilcia glabrata, wound culture growing enterococcus and coag negative staph species Allergy: Erythromycin, vancomycin Physical examination: Chronically ill-appearing elderly woman who is in no distress. Head atraumatic normocephalic, sclera nonicteric, neck is supple, tracheostomy present. Chest rise symmetrical, breath sounds diminished basis. Heart S1-S2. Abdomen soft, bowel tones present. Extremities no cyanosis Assessment: 1. Acute on chronic Hypoxemic Resp Failure secondary to fluid overload and possible pneumonia 2. UTI 3. VDRF 4. ESRD on HD 5. Sacral decubitus Plan: Remains on Levophed gtt, status post cultures repeated last night, will repeat blood cultures from hemodialysis catheter with hemodialysis now, continue present care antibiotics, vent management per pulmonary Discussed with staff Discussed with daughter at bedside Problems: Consultation Date/Type/Reason Admit Date/Time Jan 07, 2017 at 12:43 Initial Consult Date 01/08/17 Type of Consultation: id Referring Provider: YAYO EDGAR DO Exam/Review of Systems Vital Signs Vitals Vital Signs Date Time Temp Pulse Resp B/P Pulse Ox O2 Delivery O2 Flow Rate FiO2 01/19/17 11:40 73 01/19/17 09:40 17 01/19/17 09:15 92/60 90 01/19/17 09:00 Mechanical Ventilator Trach Collar 01/19/17 08:00 98.8 01/19/17 08:00 75 Intake and Output 01/18/17 01/18/17 01/19/17 15:00 23:00 07:00 Intake Total 1306.870 ml 641.85 ml 615.59 ml Output Total 2200 ml 20 ml 10 ml Balance -893.130 ml 621.85 ml 605.59 ml Results Result Diagram: 01/19/17 0540 01/19/17 0540 Results 24 hrs Laboratory Tests Test 01/18/17 16:45 01/18/17 23:39 01/19/17 05:40 01/19/17 06:39 Bedside Glucose 121 139 113 White Blood Count 9.3 Red Blood Count 3.34 L Hemoglobin 9.5 L Hematocrit 30.7 L Mean Corpuscular Volume 91.9 Mean Corpuscular Hemoglobin 28.4 L Mean Corpuscular Hemoglobin Concent 30.9 L Red Cell Distribution Width 19.3 H Platelet Count 168 Mean Platelet Volume 10.8 H Neutrophils % 64.5 Lymphocytes % 20.3 Monocytes % 9.7 Eosinophils % 4.7 Basophils % 0.5 Nucleated Red Blood Cells % 0.0 Neutrophils # 6.0 Lymphocytes # 1.9 Monocytes # 0.9 Eosinophils # 0.4 Basophils # 0.1 Nucleated Red Blood Cells # 0.0 Sodium Level 133 L Potassium Level 3.7 Chloride Level 98 Carbon Dioxide Level 26 Anion Gap 13 Blood Urea Nitrogen 42 H Creatinine 1.76 H Glucose Level 123 Calcium Level 9.5 Phosphorus Level 2.5 Magnesium Level 1.8 Medications Medications Current Medications Acetaminophen (Tylenol Liquid) 650 mg Q4H PRN GTB PAIN OR TEMP ABOVE 38C Last administered on 01/18/17 23:14; Admin Dose 650 MG; Start 01/07/17 at 13:00 Diphenhydramine HCl (Benadryl) 25 mg Q6H PRN GTB ITCHING Last administered on 01:33; Admin Dose 25 MG; Start 01/07/17 at 13:00 Multivit/Ca Carb/ B Cmplx/FA/Prenat (Macrina-Brigitte) 1 tab DAILY GTB Last administered on 01/19/17 08:10; Admin Dose 1 TAB; Start 01/08/17 at 09:00 Ondansetron HCl (Zofran Tab) 4 mg Q4H PRN GTB NAUSEA AND/OR VOMITING Last administered on 01/15/17 05:07; Admin Dose 4 MG; Start 01/07/17 at 13:00 Miscellaneous Information 1 ea NOTE XX ; Start 01/07/17 at 23:45 Glucose (Glutose) 15 gm Q15M PRN PO DECREASED GLUCOSE; Start 01/07/17 at 23:45 Glucose (Glutose) 22.5 gm Q15M PRN PO DECREASED GLUCOSE; Start 01/07/17 at 23:45 Dextrose (D50w Syringe) 25 ml Q15M PRN IV DECREASED GLUCOSE; Start 01/07/17 at 23:45 Dextrose (D50w Syringe) 50 ml Q15M PRN IV DECREASED GLUCOSE; Start 01/07/17 at 23:45 Glucagon (Glucagen) 1 mg Q15M PRN IM DECREASED GLUCOSE; Start 01/07/17 at 23:45 Glucose (Glutose) 15 gm Q15M PRN BUCCAL DECREASED GLUCOSE; Start 01/07/17 at 23: 45 Miscellaneous Information (Pending [facility] Order For Wound Care) This patient lopez... PRN PRN XX WOUND CARE; Start 01/08/17 at 07:30 Insulin Aspart NOVOLOG *MILD* ALGORI... Q6 SC Last administered on 01/18/17 11 :59; Admin Dose 1 UNIT; Start 01/08/17 at 12:00 Caspofungin/ Sodium Chloride (Cancidas/NS) 250 ml @ 250 mls/hr Q24H IVPB Last administered on 01/18/17 11:39; Admin Dose 250 MLS/HR; Start 01/09/17 at 12:00 Heparin Sodium (Porcine) (Heparin (5000 Units/0.5 ml)) 5,000 unit BID SC Last administered on 01/18/17 21:04; Admin Dose 5,000 UNIT; Start 01/10/17 at 21:00 Lorazepam (Ativan) 1 mg Q6H PRN PO Agitation Last administered on 01/19/17 08: 10; Admin Dose 1 MG; Start 01/10/17 at 13:30; Status Future Hold Linezolid 600 mg 600 mg BID PO Last administered on 01/19/17 08:10; Admin Dose 600 MG; Start 01/10/17 at 15:00 Midazolam HCl (Versed) 50 ml @ 1 mls/hr TITRATE IV ; Start 01/11/17 at 11:00 Escitalopram Oxalate 10 mg 10 mg DAILY GTB Last administered on 01/19/17 08:10 ; Admin Dose 10 MG; Start 7/7/17 at 09:00 Norepinephrine 16 mg/Dextrose 500 ml @ 1.87 mls/hr TITRATE IV Last administered on 01/18/17 11:40; Admin Dose 11.25 MLS/HR; Start 01/15/17 at 23:45 Meropenem/Sodium Chloride (Merrem 500mg/50 ml(Pmx)) 50 ml @ 200 mls/hr Q24H IVPB Last administered on 01/18/17 14:54; Admin Dose 200 MLS/HR; Start at 14:00 Midodrine (Proamatine) 10 mg BID@09,17 NGT Last administered on 01/19/17 08:10 ; Admin Dose 10 MG; Start 01/18/17 at 09:00 Oxycodone HCl (Roxicodone) 5 mg Q4H PRN PO PAIN Last administered on 01/19/17 08:11; Admin Dose 5 MG; Start 01/18/17 at 12:00 AI FUNEZ NP Jan 19, 2017 12:07
[2017-01-19] MEDS: CASPOFUNGIN 50 MG in SOD CHLORIDE 0.9% 250 ML IVPB SCH (13:10)
[2017-01-19] MEDS: EPOETIN 4000 UNITS/1 ML INJ (ESRD) SC SCH (13:13)
[2017-01-19] MEDS: MEROPENEM 500MG/50 ML (PMX) 50 ML IVPB SCH (14:29)
--- NOTE | 2017-01-19 16:46 | RADRPT ---
PROCEDURE: Ultrasound guidance for placement of needle in right upper extremity vein. CLINICAL INDICATION: Venous access. TECHNIQUE: Limited sonography of the right upper extremity was performed. Ultrasound images were recorded and stored in the patient's medical record. COMPARISON: None. FINDINGS: The ultrasound images demonstrate a patent right upper extremity vein. The PICC line was inserted b y the PICC line nurse. IMPRESSION: 1. Ultrasound guidance for a needle placement in a right upper extremity vein. 2. The visualized right upper extremity vein is patent. RPTAT: QQ .Jeff Ring MD, MD Date Time Electronically viewed and signed by .Jeff Ring MD, MD on 01/19/2017 16:46 .R/
--- NOTE | 2017-01-19 16:53 | RADRPT ---
PROCEDURE: XR Chest. CLINICAL INDICATION: Check PICC line position. TECHNIQUE: Single frontal view. COMPARISON: Prior study done earlier the same day. FINDINGS: There is a left arm PICC line with the tip in the lower superior vena cava. The tracheostomy tube, and tunneled right internal jugular vein dialysis catheter, and dual lead permanent pacemaker remain in satisfactory position. Surgical clips are present in the. Pulmonary edema is unchanged. The heart is enlarged. There is calcification in the aorta consistent with atherosclerosis. There is no pleural effusion. There is no pneumothorax. IMPRESSION: 1. Right arm PICC line tip in satisfactory position. 2. No other change from the prior study done earlier the same day. RPTAT: QQ .Jeff Ring MD, MD Date Time Electronically viewed and signed by .Jeff Ring MD, MD on 01/19/2017 16:52 .R/
[2017-01-19] MEDS ORDERED: SOD CHLORIDE 0.9% 100 ML ONE (17:39)
[2017-01-20] VITALS (79 sets, daily range): BP systolic 81–129; BP diastolic 47–83; PULSE 71–105; RESP 4–32
[2017-01-20] MEDS: IPRATROPIUM (HFA) 12.9 GM INHALER INH SCH ×4 (01:44→20:18)
[2017-01-20] MEDS: ACETYLCYSTEINE 20% 4 ML VIAL NEB SCH ×4 (01:44→20:17)
[2017-01-20] MEDS: ALBUTEROL 18 GM INHALER INH SCH ×4 (01:44→20:18)
[2017-01-20 05:04] LABS: ADD SCAN DIFF NO
[2017-01-20 05:11] LABS: BASOPHILS % 0.4 % (0.0-2.0); EOSINOPHILS # 0.7 10^3/ul (0.0-0.5); EOSINOPHILS % 7.3 % (0.0-7.0); HEMATOCRIT 29.4 % (37.0-47.0); HEMOGLOBIN 8.8 g/dl (12.0-16.0); LYMPHOCYTES # 1.6 10^3/ul (0.8-2.9); LYMPHOCYTES % 17.9 % (15.0-51.0); MEAN CORPUSCULAR HEMOGLOBIN 27.3 pg (29.0-33.0); MEAN CORPUSCULAR HGB CONC 29.9 g/dl (32.0-37.0); MEAN CORPUSCULAR VOLUME 91.3 fl (82.0-101.0); MEAN PLATELET VOLUME 12.1 fl (7.4-10.4); MONOCYTE # 0.8 10^3/ul (0.3-0.9); MONOCYTES % 8.7 % (0.0-11.0); NEUTROPHIL # 5.9 10^3/ul (1.6-7.5); NEUTROPHILS % 65.5 % (39.0-77.0); PLATELET COUNT 162 10^3/UL (140-415); RED BLOOD COUNT 3.22 10^6/ul (4.20-5.40); RED CELL DISTRIBUTION WIDTH 19.4 % (11.5-14.5)
[2017-01-20] MEDS: INSULIN ASPART [NOVOLOG] 3 ML PEN SC SCH ×4 (05:31→23:59)
[2017-01-20 05:41] LABS: CALCIUM 9.3 mg/dl (8.4-10.2); CREATININE 1.62 mg/dl (0.44-1.00)
[2017-01-20] MEDS: RISEDRONATE 5 MG TAB GTB SCH (06:39)
[2017-01-20] MEDS: LANSOPRAZOLE 30 MG CAP GTB SCH (06:39)
[2017-01-20] MEDS ORDERED: RISEDRONATE 35 MG TAB PO SCH (07:00)
[2017-01-20 07:49] LABS: MAGNESIUM 1.9 mg/dl (1.7-2.5); PHOSPHORUS 2.3 mg/dl (2.5-4.9)
[2017-01-20 07:57] LABS: AADO2 Arterial 433.5 mmHg (7.0-24.0); Allen Test ACCEPTAB; Arterial Base Excess 3.4 mmol/L (-3.0-3); Arterial COHb 0.3 % (0.0-3.0); Arterial Fraction of Oxyhgb 92.5 % (93.0-99.0); Arterial HCO3 26.5 mmol/L (22.0-26.0); Arterial MetHb 0.2 % (0.0-1.5); Arterial Total Hemglobin 10.3 g/dl (12.0-18.0); MODE VENT - AC
[2017-01-20] MEDS: ESCITALOPRAM 10 MG TAB GTB SCH (08:54)
[2017-01-20] MEDS: ZYVOX 600 MG TAB PO SCH ×2 (08:54→20:42)
[2017-01-20] MEDS: MIDODRINE 5 MG TAB NGT SCH ×2 (08:54→17:24)
[2017-01-20] MEDS: MULTIVIT/CA CARB/B CMPLX/FA TAB GTB SCH (08:54)
[2017-01-20] MEDS: HEPARIN 5,000 UNIT/0.5 ML VIAL SC SCH ×2 (08:56→20:45)
--- NOTE | 2017-01-20 09:13 | CONS ---
Date/Time of Note Date/Time of Note DATE: 01/20/17 TIME: 09:11 Consult Date/Type/Reason Admit Date/Time Jan 07, 2017 at 12:43 Initial Consult Date 01/07/17 Type of Consultation: im Ordering Provider: YAYO EDGAR DO Subjective pt. seen and examined in icu. d/w rn, off pressors. trach ok. on vent 75%fio2. s/p hd yesterday -2 liters. arousable and comfortable. Objective Vital Signs Date Time Temp Pulse Resp B/P Pulse Ox O2 Delivery O2 Flow Rate FiO2 01/20/17 07:15 82 22 107/63 98 01/20/17 07:00 Mechanical Ventilator 01/20/17 04:53 75 01/20/17 04:00 98.8 Intake and Output 01/19/17 01/19/17 01/20/17 15:00 23:00 07:00 Intake Total 1175.60 ml 1047.49 ml 631.86 ml Output Total 3000 ml 60 ml 20 ml Balance -1824.40 ml 987.49 ml 611.86 ml Exam PHYSICAL EXAMINATION GENERAL: Chronically ill-appearing lady intubated on mechanical ventilation VITAL SIGNS: see below. HEENT: Pupils equal, round, and reactive to light. Tracheostomy site clean and intact. CARDIAC: S1, S2, 1/6 systolic ejection murmur CHEST: Diminished air entry bilaterally. Few rales right base ABDOMEN: Mildly distended. Bowel sounds present no guarding or rebound EXTREMITIES: No cyanosis, clubbing edema +1 NEUROLOGIC: Generalized weakness Results/Medications Result Diagram: 01/20/17 0415 01/20/17 0415 Results 24 hrs Laboratory Tests Test 01/19/17 13:12 01/19/17 17:35 01/19/17 23:53 01/20/17 04:15 Bedside Glucose 130 124 107 White Blood Count 9.0 Red Blood Count 3.22 L Hemoglobin 8.8 L Hematocrit 29.4 L Mean Corpuscular Volume 91.3 Mean Corpuscular Hemoglobin 27.3 L Mean Corpuscular Hemoglobin Concent 29.9 L Red Cell Distribution Width 19.4 H Platelet Count 162 Mean Platelet Volume 12.1 H Neutrophils % 65.5 Lymphocytes % 17.9 Monocytes % 8.7 Eosinophils % 7.3 H Basophils % 0.4 Nucleated Red Blood Cells % 0.0 Neutrophils # 5.9 Lymphocytes # 1.6 Monocytes # 0.8 Eosinophils # 0.7 H Basophils # 0.0 Nucleated Red Blood Cells # 0.0 Sodium Level 138 Potassium Level 4.0 Chloride Level 100 Carbon Dioxide Level 30 Anion Gap 12 Blood Urea Nitrogen 46 H Creatinine 1.62 H Glucose Level 108 Calcium Level 9.3 Phosphorus Level 2.3 L Magnesium Level 1.9 Test 01/20/17 05:31 01/20/17 07:00 Bedside Glucose 111 Blood Gas Specimen Source Blood arterial Arterial Blood Date Drawn 01/20/2017 7:20:54 AM Arterial Blood pH (Temp corrected) 7.501 H Arterial Blood pCO2 (Temp correct) 34.7 L Arterial Blood pO2 (Temp corrected) 64.4 L Arterial Blood HCO3 26.5 H Arterial Blood Base Excess 3.4 H Arterial Blood Oxygen Saturation 93.0 L Ivan Test ACCEPTAB Arterial Blood Gas Puncture Site Right Radial Arterial Blood Carboxyhemoglobin 0.3 Arterial Blood Methemoglobin 0.2 Blood Gas A-a O2 Differential 433.5 H Oxyhemoglobin Percent 92.5 L Total Hemoglobin 10.3 L Blood Gas Temperature 37.0 Blood Gas Respiration Rate 16.0 Blood Gas Actual Respiration Rate 22 Blood Gas Modality VENT - AC FiO2 75.0 Blood Gas Tidal Volume 500.0 Blood Gas Low PEEP Setting 8.0 Blood Gas Notified Whom JLD Blood Gas Notified Time 01/20/2017 7:57:36 AM Medications Current Medications Acetaminophen (Tylenol Liquid) 650 mg Q4H PRN GTB PAIN OR TEMP ABOVE 38C Last administered on 01/18/17 23:14; Admin Dose 650 MG; Start 01/07/17 at 13:00 Diphenhydramine HCl (Benadryl) 25 mg Q6H PRN GTB ITCHING Last administered on 21:19; Admin Dose 25 MG; Start 01/07/17 at 13:00 Multivit/Ca Carb/ B Cmplx/FA/Prenat (Macrina-Brigitte) 1 tab DAILY GTB Last administered on 01/20/17 08:54; Admin Dose 1 TAB; Start 01/08/17 at 09:00 Ondansetron HCl (Zofran Tab) 4 mg Q4H PRN GTB NAUSEA AND/OR VOMITING Last administered on 01/15/17 05:07; Admin Dose 4 MG; Start 01/07/17 at 13:00 Miscellaneous Information 1 ea NOTE XX ; Start 01/07/17 at 23:45 Glucose (Glutose) 15 gm Q15M PRN PO DECREASED GLUCOSE; Start 01/07/17 at 23:45 Glucose (Glutose) 22.5 gm Q15M PRN PO DECREASED GLUCOSE; Start 01/07/17 at 23:45 Dextrose (D50w Syringe) 25 ml Q15M PRN IV DECREASED GLUCOSE; Start 01/07/17 at 23:45 Dextrose (D50w Syringe) 50 ml Q15M PRN IV DECREASED GLUCOSE; Start 01/07/17 at 23:45 Glucagon (Glucagen) 1 mg Q15M PRN IM DECREASED GLUCOSE; Start 01/07/17 at 23:45 Glucose (Glutose) 15 gm Q15M PRN BUCCAL DECREASED GLUCOSE; Start 01/07/17 at 23: 45 [facility] This patient lopez... PRN PRN XX WOUND CARE; Start 01/08/17 at 07:30 Insulin Aspart NOVOLOG *MILD* ALGORI... Q6 SC Last administered on 01/18/17 11 :59; Admin Dose 1 UNIT; Start 01/08/17 at 12:00 Caspofungin/ Sodium Chloride (Cancidas/NS) 250 ml @ 250 mls/hr Q24H IVPB Last administered on 01/19/17 13:10; Admin Dose 250 MLS/HR; Start 01/09/17 at 12:00 Heparin Sodium (Porcine) (Heparin (5000 Units/0.5 ml)) 5,000 unit BID SC Last administered on 01/20/17 08:56; Admin Dose 5,000 UNIT; Start 01/10/17 at 21:00 Lorazepam (Ativan) 1 mg Q6H PRN PO Agitation Last administered on 01/19/17 08: 10; Admin Dose 1 MG; Start 01/10/17 at 13:30; Status Future Hold Linezolid 600 mg 600 mg BID PO Last administered on 01/20/17 08:54; Admin Dose 600 MG; Start 01/10/17 at 15:00 Midazolam HCl (Versed) 50 ml @ 1 mls/hr TITRATE IV ; Start 01/11/17 at 11:00 Escitalopram Oxalate 10 mg 10 mg DAILY GTB Last administered on 01/20/17 08:54 ; Admin Dose 10 MG; Start 01/13/17 at 09:00 Norepinephrine 16 mg/Dextrose 500 ml @ 1.87 mls/hr TITRATE IV Last administered on 01/18/17 11:40; Admin Dose 11.25 MLS/HR; Start 01/15/17 at 23:45 Meropenem/Sodium Chloride (Merrem 500mg/50 ml(Pmx)) 50 ml @ 200 mls/hr Q24H IVPB Last administered on 01/19/17 14:29; Admin Dose 200 MLS/HR; Start at 14:00 Midodrine (Proamatine) 10 mg BID@09,17 NGT Last administered on 01/20/17 08:54 ; Admin Dose 10 MG; Start 01/18/17 at 09:00 Oxycodone HCl (Roxicodone) 5 mg Q4H PRN PO PAIN Last administered on 01/19/17 08:11; Admin Dose 5 MG; Start 01/18/17 at 12:00 IV Flush (NS 10 ml) 10 ml PRN PRN IV IV PROTOCOL; Start 01/19/17 at 17:00 Assessment/Plan Chief Complaint/Hosp Course 1. hypoxemic respiratory failure. etiology likely multifactorial, chf, ? pna,, ? Anxiety -CT angios showed interstitial edema pulmonary edema, no evidence of PE FiO2 remains high, will taper. plan -We will attempt daily dialysis for volume removal. If hemodynamically able to be tolerated -Follow-up with pulmonary -Monitor 2. septic shock Secondary to UTI, pneumonia, -Urine culture is positive yeast. chest x-ray suggests possible infiltrate -Patient on pressor support, broad-spectrum antibiotics/antifungal -off pressors Follow-up with infectious disease 3. Encephalopathy, acute. Etiology is likely secondary to toxic metabolic -Mental status appears to be improving continue to monitor 4. Dysphagia, status post percutaneous endoscopic gastrostomy. -Continue tube feeding. 5. ESRD -HD in am , off today to help keep off pressors. 7. Atrial fibrillation, currently rate controlled. Continue medical management. -Off anticoagulation secondary to previous bleed - Continue beta louise. We will follow up with cardiology. 8. Anemia. Continue to monitor hemoglobin and hematocrit levels. Continue Epogen 9. Mineral bone disease. Continue to monitor calcium and phosphorus levels. 10. History of breast cancer status post bilateral mastectomy. 11. Congestive heart failure. Continue medical management. 12. Diabetes. Continue Accu-Cheks and sliding scale. 13. History of Clostridium difficile colitis, status post treatment. 14. Gastrointestinal and deep venous thrombosis prophylaxis. Continue Protonix , SCD, heparin 15. Hypokalemia replete with potassium chloride as needed 16. Anxiety disorder. Will start patient on Lexapro 17. Hypokalemia. Monitor and replete potassium chloride as needed Please note I spent over 35 minutes critical care time with this patient Problems: DANNI ARSHAD MD Jan 20, 2017 09:13
[2017-01-20] MEDS: CASPOFUNGIN 50 MG in SOD CHLORIDE 0.9% 250 ML IVPB SCH (11:21)
--- NOTE | 2017-01-20 11:54 | CONS ---
Date/Time of Note Date/Time of Note DATE: 01/20/17 TIME: 11:52 Consult Date/Type/Reason Admit Date/Time Jan 07, 2017 at 12:43 Initial Consult Date 01/08/17 Type of Consultation: Pulmonary Ordering Provider: YAYO EDGAR DO Subjective Patient is comfortable this morning less agitated. Still with moderate secretions Continues FiO2 of 75% PEEP of 8 Objective Vital Signs Date Time Temp Pulse Resp B/P Pulse Ox O2 Delivery O2 Flow Rate FiO2 01/20/17 09:15 80 16 95/69 95 Mechanical Ventilator 01/20/17 08:00 98.1 01/20/17 08:00 75 Intake and Output 01/19/17 01/19/17 01/20/17 15:00 23:00 07:00 Intake Total 1175.60 ml 1047.49 ml 637.48 ml Output Total 3000 ml 60 ml 20 ml Balance -1824.40 ml 987.49 ml 617.48 ml Exam PHYSICAL EXAMINATION GENERAL: Chronically ill-appearing lady intubated on mechanical ventilation VITAL SIGNS: see below. HEENT: Pupils equal, round, and reactive to light. Tracheostomy site clean and intact. CARDIAC: S1, S2, 1/6 systolic ejection murmur CHEST: Diminished air entry bilaterally. Few rales right base ABDOMEN: Mildly distended. Bowel sounds present no guarding or rebound EXTREMITIES: No cyanosis, clubbing edema +1 NEUROLOGIC: Generalized weakness Results/Medications Result Diagram: 01/20/17 0415 01/20/17 0415 Results 24 hrs Laboratory Tests Test 01/19/17 13:12 01/19/17 17:35 01/19/17 23:53 01/20/17 04:15 Bedside Glucose 130 124 107 White Blood Count 9.0 Red Blood Count 3.22 L Hemoglobin 8.8 L Hematocrit 29.4 L Mean Corpuscular Volume 91.3 Mean Corpuscular Hemoglobin 27.3 L Mean Corpuscular Hemoglobin Concent 29.9 L Red Cell Distribution Width 19.4 H Platelet Count 162 Mean Platelet Volume 12.1 H Neutrophils % 65.5 Lymphocytes % 17.9 Monocytes % 8.7 Eosinophils % 7.3 H Basophils % 0.4 Nucleated Red Blood Cells % 0.0 Neutrophils # 5.9 Lymphocytes # 1.6 Monocytes # 0.8 Eosinophils # 0.7 H Basophils # 0.0 Nucleated Red Blood Cells # 0.0 Sodium Level 138 Potassium Level 4.0 Chloride Level 100 Carbon Dioxide Level 30 Anion Gap 12 Blood Urea Nitrogen 46 H Creatinine 1.62 H Glucose Level 108 Calcium Level 9.3 Phosphorus Level 2.3 L Magnesium Level 1.9 Test 01/20/17 05:31 01/20/17 07:00 01/20/17 11:11 Bedside Glucose 111 116 Blood Gas Specimen Source Blood arterial Arterial Blood Date Drawn 01/20/2017 7:20:54 AM Arterial Blood pH (Temp corrected) 7.501 H Arterial Blood pCO2 (Temp correct) 34.7 L Arterial Blood pO2 (Temp corrected) 64.4 L Arterial Blood HCO3 26.5 H Arterial Blood Base Excess 3.4 H Arterial Blood Oxygen Saturation 93.0 L Ivan Test ACCEPTAB Arterial Blood Gas Puncture Site Right Radial Arterial Blood Carboxyhemoglobin 0.3 Arterial Blood Methemoglobin 0.2 Blood Gas A-a O2 Differential 433.5 H Oxyhemoglobin Percent 92.5 L Total Hemoglobin 10.3 L Blood Gas Temperature 37.0 Blood Gas Respiration Rate 16.0 Blood Gas Actual Respiration Rate 22 Blood Gas Modality VENT - AC FiO2 75.0 Blood Gas Tidal Volume 500.0 Blood Gas Low PEEP Setting 8.0 Blood Gas Notified Whom JLD Blood Gas Notified Time 01/20/2017 7:57:36 AM Medications Current Medications Acetaminophen (Tylenol Liquid) 650 mg Q4H PRN GTB PAIN OR TEMP ABOVE 38C Last administered on 01/18/17 23:14; Admin Dose 650 MG; Start 01/07/17 at 13:00 Diphenhydramine HCl (Benadryl) 25 mg Q6H PRN GTB ITCHING Last administered on 21:19; Admin Dose 25 MG; Start 01/07/17 at 13:00 Multivit/Ca Carb/ B Cmplx/FA/Prenat (Macrina-Brigitte) 1 tab DAILY GTB Last administered on 01/20/17 08:54; Admin Dose 1 TAB; Start 01/08/17 at 09:00 Ondansetron HCl (Zofran Tab) 4 mg Q4H PRN GTB NAUSEA AND/OR VOMITING Last administered on 01/15/17 05:07; Admin Dose 4 MG; Start 01/07/17 at 13:00 Miscellaneous Information 1 ea NOTE XX ; Start 01/07/17 at 23:45 Glucose (Glutose) 15 gm Q15M PRN PO DECREASED GLUCOSE; Start 01/07/17 at 23:45 Glucose (Glutose) 22.5 gm Q15M PRN PO DECREASED GLUCOSE; Start 01/07/17 at 23:45 Dextrose (D50w Syringe) 25 ml Q15M PRN IV DECREASED GLUCOSE; Start 01/07/17 at 23:45 Dextrose (D50w Syringe) 50 ml Q15M PRN IV DECREASED GLUCOSE; Start 01/07/17 at 23:45 Glucagon (Glucagen) 1 mg Q15M PRN IM DECREASED GLUCOSE; Start 01/07/17 at 23:45 Glucose (Glutose) 15 gm Q15M PRN BUCCAL DECREASED GLUCOSE; Start 01/07/17 at 23: 45 [facility]isc[facility] This patient lopez... PRN PRN XX WOUND CARE; Start 01/08/17 at 07:30 Insulin Aspart NOVOLOG *MILD* ALGORI... Q6 SC Last administered on 01/18/17 11 :59; Admin Dose 1 UNIT; Start 01/08/17 at 12:00 Caspofungin/ Sodium Chloride (Cancidas/NS) 250 ml @ 250 mls/hr Q24H IVPB Last administered on 01/20/17 11:21; Admin Dose 250 MLS/HR; Start 01/09/17 at 12:00 Heparin Sodium (Porcine) (Heparin (5000 Units/0.5 ml)) 5,000 unit BID SC Last administered on 01/20/17 08:56; Admin Dose 5,000 UNIT; Start 01/10/17 at 21:00 Lorazepam (Ativan) 1 mg Q6H PRN PO Agitation Last administered on 01/19/17 08: 10; Admin Dose 1 MG; Start 01/10/17 at 13:30; Status Future Hold Linezolid 600 mg 600 mg BID PO Last administered on 01/20/17 08:54; Admin Dose 600 MG; Start 01/10/17 at 15:00 Midazolam HCl (Versed) 50 ml @ 1 mls/hr TITRATE IV ; Start 01/11/17 at 11:00 Escitalopram Oxalate 10 mg 10 mg DAILY GTB Last administered on 01/20/17 08:54 ; Admin Dose 10 MG; Start 01/13/17 at 09:00 Norepinephrine 16 mg/Dextrose 500 ml @ 1.87 mls/hr TITRATE IV Last administered on 01/18/17 11:40; Admin Dose 11.25 MLS/HR; Start 01/15/17 at 23:45 Meropenem/Sodium Chloride (Merrem 500mg/50 ml(Pmx)) 50 ml @ 200 mls/hr Q24H IVPB Last administered on 01/19/17 14:29; Admin Dose 200 MLS/HR; Start at 14:00 Midodrine (Proamatine) 10 mg BID@,17 NGT Last administered on 01/20/17 08:54 ; Admin Dose 10 MG; Start 01/18/17 at 09:00 Oxycodone HCl (Roxicodone) 5 mg Q4H PRN PO PAIN Last administered on 01/19/17 08:11; Admin Dose 5 MG; Start 01/18/17 at 12:00 IV Flush (NS 10 ml) 10 ml PRN PRN IV IV PROTOCOL; Start 01/19/17 at 17:00 Assessment/Plan Chief Complaint/Hosp Course IMP: 1. Acute on chronic hypoxemic respiratory failure possible component of worsening volume overload in addition to pneumonia. Questionable aspergillus infection given thick mucoid secretions. 2. UTI 3. VDRF 4. ESRD on HD status post hemodialysis today with volume removal 5. Anemia likely secondary to underlying renal disease RECS: 1. Decrease FiO2 and PEEP 2. Continue pulmonary toilet, will consider bronchoscopy if still having problems with secretions. Hold off on bronchoscopy today if remains stable 3. Continue hemodialysis with volume removal 4. continue antibiotics per ID, check IgE and aspergillus precipitants results were pending 5. continue Mucomyst 6. Continue Ativan and Lexapro. Critical care time 40 minutes Problems: RHONDA BUENROSTRO MD, [facility] Jan 20, 2017 11:54
[2017-01-20] MEDS: MEROPENEM 500MG/50 ML (PMX) 50 ML IVPB SCH (14:04)
--- NOTE | 2017-01-20 14:10 | CONS ---
Date/Time of Note Date/Time of Note DATE: 01/20/17 TIME: 14:08 Assessment/Plan Assessment/Plan Chief Complaint/Hosp Course No acute changes. Patient is off pressors, looks comfortable, afebrile Temperature 97.9 pulse 80 respirations 20 blood pressure 95/60 saturation 94 on vent WBC 9 H&H 8.8 and 29.4 platelets 162 Stool for C. difficile sent on January 19 negative repeated blood cultures on January 18 and negative sputum culture grew normal respiratory herb Indwelling: PICC line trach PEG right chest permacath Antibiotics: Cancidas, meropenem, Zyvox Microbiology: Urine culture growing Dilcia glabrata, wound culture growing enterococcus and coag negative staph species Allergy: Erythromycin, vancomycin Physical examination: Chronically ill-appearing elderly woman who is in no distress. Head atraumatic normocephalic, sclera nonicteric, neck is supple, tracheostomy present. Chest rise symmetrical, breath sounds diminished basis. Heart S1-S2. Abdomen soft, bowel tones present. Extremities no cyanosis Assessment: 1. Acute on chronic Hypoxemic Resp Failure secondary to fluid overload and possible pneumonia 2. UTI 3. VDRF 4. ESRD on HD 5. Sacral decubitus Plan: Stable off Levophed gtt, repeat cultures negative, continue present care, complete antibiotics, vent management per pulmonary Discussed with staff Problems: Consultation Date/Type/Reason Admit Date/Time Jan 07, 2017 at 12:43 Initial Consult Date 01/08/17 Type of Consultation: ID Referring Provider: YAYO EDGAR DO Exam/Review of Systems Vital Signs Vitals Vital Signs Date Time Temp Pulse Resp B/P Pulse Ox O2 Delivery O2 Flow Rate FiO2 01/20/17 14:00 83 21 97/67 89 Mechanical Ventilator 01/20/17 12:00 97.9 01/20/17 08:00 75 Intake and Output 01/19/17 01/19/17 01/20/17 15:00 23:00 07:00 Intake Total 1175.60 ml 1047.49 ml 637.48 ml Output Total 3000 ml 60 ml 20 ml Balance -1824.40 ml 987.49 ml 617.48 ml Results Result Diagram: 01/20/17 0415 01/20/17 0415 Results 24 hrs Laboratory Tests Test 01/19/17 17:35 01/19/17 23:53 01/20/17 04:15 01/20/17 05:31 Bedside Glucose 124 107 111 White Blood Count 9.0 Red Blood Count 3.22 L Hemoglobin 8.8 L Hematocrit 29.4 L Mean Corpuscular Volume 91.3 Mean Corpuscular Hemoglobin 27.3 L Mean Corpuscular Hemoglobin Concent 29.9 L Red Cell Distribution Width 19.4 H Platelet Count 162 Mean Platelet Volume 12.1 H Neutrophils % 65.5 Lymphocytes % 17.9 Monocytes % 8.7 Eosinophils % 7.3 H Basophils % 0.4 Nucleated Red Blood Cells % 0.0 Neutrophils # 5.9 Lymphocytes # 1.6 Monocytes # 0.8 Eosinophils # 0.7 H Basophils # 0.0 Nucleated Red Blood Cells # 0.0 Sodium Level 138 Potassium Level 4.0 Chloride Level 100 Carbon Dioxide Level 30 Anion Gap 12 Blood Urea Nitrogen 46 H Creatinine 1.62 H Glucose Level 108 Calcium Level 9.3 Phosphorus Level 2.3 L Magnesium Level 1.9 Test 01/20/17 07:00 01/20/17 11:11 Blood Gas Specimen Source Blood arterial Arterial Blood Date Drawn 01/20/2017 7:20:54 AM Arterial Blood pH (Temp corrected) 7.501 H Arterial Blood pCO2 (Temp correct) 34.7 L Arterial Blood pO2 (Temp corrected) 64.4 L Arterial Blood HCO3 26.5 H Arterial Blood Base Excess 3.4 H Arterial Blood Oxygen Saturation 93.0 L Ivan Test ACCEPTAB Arterial Blood Gas Puncture Site Right Radial Arterial Blood Carboxyhemoglobin 0.3 Arterial Blood Methemoglobin 0.2 Blood Gas A-a O2 Differential 433.5 H Oxyhemoglobin Percent 92.5 L Total Hemoglobin 10.3 L Blood Gas Temperature 37.0 Blood Gas Respiration Rate 16.0 Blood Gas Actual Respiration Rate 22 Blood Gas Modality VENT - AC FiO2 75.0 Blood Gas Tidal Volume 500.0 Blood Gas Low PEEP Setting 8.0 Blood Gas Notified Whom JLD Blood Gas Notified Time 01/20/2017 7:57:36 AM Bedside Glucose 116 Medications Medications Current Medications Acetaminophen (Tylenol Liquid) 650 mg Q4H PRN GTB PAIN OR TEMP ABOVE 38C Last administered on 01/18/17t 23:14; Admin Dose 650 MG; Start 01/07/17 at 13:00 Diphenhydramine HCl (Benadryl) 25 mg Q6H PRN GTB ITCHING Last administered on 21:19; Admin Dose 25 MG; Start 01/07/17 at 13:00 Multivit/Ca Carb/ B Cmplx/FA/Prenat (Macrina-Brigitte) 1 tab DAILY GTB Last administered on 01/20/17 08:54; Admin Dose 1 TAB; Start 01/08/17 at 09:00 Ondansetron HCl (Zofran Tab) 4 mg Q4H PRN GTB NAUSEA AND/OR VOMITING Last administered on 01/15/17 05:07; Admin Dose 4 MG; Start 01/07/17 at 13:00 Miscellaneous Information 1 ea NOTE XX ; Start 01/07/17 at 23:45 Glucose (Glutose) 15 gm Q15M PRN PO DECREASED GLUCOSE; Start 01/07/17 at 23:45 Glucose (Glutose) 22.5 gm Q15M PRN PO DECREASED GLUCOSE; Start 01/07/17 at 23:45 Dextrose (D50w Syringe) 25 ml Q15M PRN IV DECREASED GLUCOSE; Start 01/07/17 at 23:45 Dextrose (D50w Syringe) 50 ml Q15M PRN IV DECREASED GLUCOSE; Start 01/07/17 at 23:45 Glucagon (Glucagen) 1 mg Q15M PRN IM DECREASED GLUCOSE; Start 01/07/17 at 23:45 Glucose (Glutose) 15 gm Q15M PRN BUCCAL DECREASED GLUCOSE; Start 01/07/17 at 23: 45 Miscellaneous Information (Pending [facility] Order For Wound Care) This patient lopez... PRN PRN XX WOUND CARE; Start 01/08/17 at 07:30 Insulin Aspart NOVOLOG *MILD* ALGORI... Q6 SC Last administered on 01/18/17 11 :59; Admin Dose 1 UNIT; Start 01/08/17 at 12:00 Caspofungin/ Sodium Chloride (Cancidas/NS) 250 ml @ 250 mls/hr Q24H IVPB Last administered on 01/20/17 11:21; Admin Dose 250 MLS/HR; Start 01/09/17 at 12:00 Heparin Sodium (Porcine) (Heparin (5000 Units/0.5 ml)) 5,000 unit BID SC Last administered on 01/20/17 08:56; Admin Dose 5,000 UNIT; Start 01/10/17 at 21:00 Lorazepam (Ativan) 1 mg Q6H PRN PO Agitation Last administered on 01/19/17 08: 10; Admin Dose 1 MG; Start 01/10/17 at 13:30; Status Future Hold Linezolid 600 mg 600 mg BID PO Last administered on 01/20/17 08:54; Admin Dose 600 MG; Start 01/10/17 at 15:00 Midazolam HCl (Versed) 50 ml @ 1 mls/hr TITRATE IV ; Start 01/11/17 at 11:00 Escitalopram Oxalate 10 mg 10 mg DAILY GTB Last administered on 01/20/17 08:54 ; Admin Dose 10 MG; Start 01/13/17 at 09:00 Norepinephrine 16 mg/Dextrose 500 ml @ 1.87 mls/hr TITRATE IV Last administered on 01/18/17 11:40; Admin Dose 11.25 MLS/HR; Start 01/15/17 at 23:45 Meropenem/Sodium Chloride (Merrem 500mg/50 ml(Pmx)) 50 ml @ 200 mls/hr Q24H IVPB Last administered on 01/20/17 14:04; Admin Dose 200 MLS/HR; Start at 14:00 Midodrine (Proamatine) 10 mg BID@09,17 NGT Last administered on 01/20/17 08:54 ; Admin Dose 10 MG; Start 01/18/17 at 09:00 Oxycodone HCl (Roxicodone) 5 mg Q4H PRN PO PAIN Last administered on 01/19/17 08:11; Admin Dose 5 MG; Start 01/18/17 at 12:00 IV Flush (NS 10 ml) 10 ml PRN PRN IV IV PROTOCOL; Start 01/19/17 at 17:00 AI FUNEZ NP Jan 20, 2017 14:10
[2017-01-20] MEDS: oxyCODONE 5 MG TAB PO PRN ×2 (18:32→23:59)
[2017-01-20] MEDS: DIPHENHYDRAMINE 25 MG CAP GTB PRN (18:32)
--- NOTE | 2017-01-20 18:36 | PN ---
Date/Time of Note Date/Time of Note DATE: 01/20/17 TIME: 18:33 Assessment/Plan VTE Prophylaxis VTE Prophylaxis Intervention: other Lines/Catheters IV Catheter Type (from Nrs): PICC Line Central line still needed: Yes Urinary Cath still in place: No Reason Cath still needed: other (indicate) Assessment/Plan Chief Complaint/Hosp Course A/P: 1. acute on chronic hypoxemic hypercapnic respiratory failure: s/p trach: vent dep. still with severe hypoxemia 2. Pafib; currently remains in NSR: off of amiodarone now 3. HX Sick sinus syndrome: s/p PPM: pacemaker was interrogated and personally reviewed on 01/08/17 with normal functioning pacemaker. 4. pneumonia 5. ESRD on HD 6. HX HTN: stable now 7. severe anemia: s/p multiple transfusion 8. severe hypoxemia 9. SHOCK: improved and currently off of levophed drip. cont vent support not anticoagulated due to concerns about bleeding and severe anemia. abx as per IM/ ID and pulm team CONT HD HR has remained stable. Will monitor on tele correct lytes prn transfusion prn Off of AMIODARONE due to severe hypoxemia, specially since pt has remained in NSR. cont ICU care consider bronchoscopy and lavage? more than 40 minutes of critical care time was spent in management and treatment of this critically ill pt, excluding any procedures. Problems: Subjective 24 Hr Interval Summary Free Text/Dictation CARDIOLOGY FOLLOW UP PROGRESS NOTE/ ICU NOTE: SUBJECTIVE: d/w staff and rhythm was reviewed. pt remains in NSR. no afib noted. pt still with severe hypoxemia and requiring 90% O2 pt is still s/p trach on vent in ICU but was able to be weaned off of levophed drip. pt with no chest pain. pt with thick sputum as per RN report from last night but during day shift it has been much better per DAY TIME RN . OBJECTIVE. General: s/p trach on vent. in no distress HEENT: NC/AT. pupils are equal. round. NECK: s/p trach. no stridor. CV: RRR. systolic murmur; no gallop or rubs. PULM: no wheezing but + rhonchi anteriorly diffusely GI: SOFT, NT, ND, no rebound or guarding . s/p PEG Extremity: trace B/L LE edema. no clubbing. neuro: awake and alert responds appropriately Psych: calm, pleasant rectal: deferred Derm: + echymosis chest: s/p R mastectomy and HD ACCESS in place. Exam/Review of Systems Vital Signs Vitals Vital Signs Date Time Temp Pulse Resp B/P Pulse Ox O2 Delivery O2 Flow Rate FiO2 01/20/17 17:30 85 30 107/76 93 Mechanical Ventilator 01/20/17 17:25 90 01/20/17 15:57 97.6 Intake and Output 01/19/17 01/19/17 01/20/17 15:00 23:00 07:00 Intake Total 1175.60 ml 1047.49 ml 637.48 ml Output Total 3000 ml 60 ml 20 ml Balance -1824.40 ml 987.49 ml 617.48 ml Results Result Diagram: 01/20/17 0415 01/20/17 0415 Results 24 hrs Laboratory Tests Test 01/19/17 23:53 01/20/17 04:15 01/20/17 05:31 01/20/17 07:00 Bedside Glucose 107 111 White Blood Count 9.0 Red Blood Count 3.22 L Hemoglobin 8.8 L Hematocrit 29.4 L Mean Corpuscular Volume 91.3 Mean Corpuscular Hemoglobin 27.3 L Mean Corpuscular Hemoglobin Concent 29.9 L Red Cell Distribution Width 19.4 H Platelet Count 162 Mean Platelet Volume 12.1 H Neutrophils % 65.5 Lymphocytes % 17.9 Monocytes % 8.7 Eosinophils % 7.3 H Basophils % 0.4 Nucleated Red Blood Cells % 0.0 Neutrophils # 5.9 Lymphocytes # 1.6 Monocytes # 0.8 Eosinophils # 0.7 H Basophils # 0.0 Nucleated Red Blood Cells # 0.0 Sodium Level 138 Potassium Level 4.0 Chloride Level 100 Carbon Dioxide Level 30 Anion Gap 12 Blood Urea Nitrogen 46 H Creatinine 1.62 H Glucose Level 108 Calcium Level 9.3 Phosphorus Level 2.3 L Magnesium Level 1.9 Blood Gas Specimen Source Blood arterial Arterial Blood Date Drawn 01/20/2017 7:20:54 AM Arterial Blood pH (Temp corrected) 7.501 H Arterial Blood pCO2 (Temp correct) 34.7 L Arterial Blood pO2 (Temp corrected) 64.4 L Arterial Blood HCO3 26.5 H Arterial Blood Base Excess 3.4 H Arterial Blood Oxygen Saturation 93.0 L Ivan Test ACCEPTAB Arterial Blood Gas Puncture Site Right Radial Arterial Blood Carboxyhemoglobin 0.3 Arterial Blood Methemoglobin 0.2 Blood Gas A-a O2 Differential 433.5 H Oxyhemoglobin Percent 92.5 L Total Hemoglobin 10.3 L Blood Gas Temperature 37.0 Blood Gas Respiration Rate 16.0 Blood Gas Actual Respiration Rate 22 Blood Gas Modality VENT - AC FiO2 75.0 Blood Gas Tidal Volume 500.0 Blood Gas Low PEEP Setting 8.0 Blood Gas Notified Whom JLD Blood Gas Notified Time 01/20/2017 7:57:36 AM Test 01/20/17 11:11 01/20/17 17:24 Bedside Glucose 116 102 Medications Medications Current Medications Acetaminophen (Tylenol Liquid) 650 mg Q4H PRN GTB PAIN OR TEMP ABOVE 38C Last administered on 01/18/17 23:14; Admin Dose 650 MG; Start 01/07/17 at 13:00 Diphenhydramine HCl (Benadryl) 25 mg Q6H PRN GTB ITCHING Last administered on 21:19; Admin Dose 25 MG; Start 01/07/17 at 13:00 Multivit/Ca Carb/ B Cmplx/FA/Prenat (Macrina-Brigitte) 1 tab DAILY GTB Last administered on 01/20/17 08:54; Admin Dose 1 TAB; Start 01/08/17 at 09:00 Ondansetron HCl (Zofran Tab) 4 mg Q4H PRN GTB NAUSEA AND/OR VOMITING Last administered on 01/15/17 05:07; Admin Dose 4 MG; Start 01/07/17 at 13:00 Miscellaneous Information 1 ea NOTE XX ; Start 01/07/17 at 23:45 Glucose (Glutose) 15 gm Q15M PRN PO DECREASED GLUCOSE; Start 01/07/17 at 23:45 Glucose (Glutose) 22.5 gm Q15M PRN PO DECREASED GLUCOSE; Start 01/07/17 at 23:45 Dextrose (D50w Syringe) 25 ml Q15M PRN IV DECREASED GLUCOSE; Start 01/07/17 at 23:45 Dextrose (D50w Syringe) 50 ml Q15M PRN IV DECREASED GLUCOSE; Start 01/07/17 at 23:45 Glucagon (Glucagen) 1 mg Q15M PRN IM DECREASED GLUCOSE; Start 01/07/17 at 23:45 Glucose (Glutose) 15 gm Q15M PRN BUCCAL DECREASED GLUCOSE; Start 01/07/17 at 23: 45 Miscellaneous Information ([facility]) This patient lopez... PRN PRN XX WOUND CARE; Start 01/08/17 at 07:30 Insulin Aspart NOVOLOG *MILD* ALGORI... Q6 SC Last administered on 01/18/17 11 :59; Admin Dose 1 UNIT; Start 01/08/17 at 12:00 Caspofungin/ Sodium Chloride (Cancidas/NS) 250 ml @ 250 mls/hr Q24H IVPB Last administered on 01/20/17 11:21; Admin Dose 250 MLS/HR; Start 01/09/17 at 12:00 Heparin Sodium (Porcine) (Heparin (5000 Units/0.5 ml)) 5,000 unit BID SC Last administered on 01/20/17 08:56; Admin Dose 5,000 UNIT; Start 01/10/17 at 21:00 Lorazepam (Ativan) 1 mg Q6H PRN PO Agitation Last administered on 01/19/17 08: 10; Admin Dose 1 MG; Start 01/10/17 at 13:30; Status Future Hold Linezolid 600 mg 600 mg BID PO Last administered on 01/20/17 08:54; Admin Dose 600 MG; Start 01/10/17 at 15:00 Midazolam HCl (Versed) 50 ml @ 1 mls/hr TITRATE IV ; Start 01/11/17 at 11:00 Escitalopram Oxalate 10 mg 10 mg DAILY GTB Last administered on 01/20/17 08:54 ; Admin Dose 10 MG; Start 01/13/17 at 09:00 Norepinephrine 16 mg/Dextrose 500 ml @ 1.87 mls/hr TITRATE IV Last administered on 01/18/17 11:40; Admin Dose 11.25 MLS/HR; Start 01/15/17 at 23:45 Meropenem/Sodium Chloride (Merrem 500mg/50 ml(Pmx)) 50 ml @ 200 mls/hr Q24H IVPB Last administered on 01/20/17 14:04; Admin Dose 200 MLS/HR; Start at 14:00 Midodrine (Proamatine) 10 mg BID@09,17 NGT Last administered on 01/20/17 17:24 ; Admin Dose 10 MG; Start 01/18/17 at 09:00 Oxycodone HCl (Roxicodone) 5 mg Q4H PRN PO PAIN Last administered on 01/19/17 08:11; Admin Dose 5 MG; Start 01/18/17 at 12:00 IV Flush (NS 10 ml) 10 ml PRN PRN IV IV PROTOCOL; Start 01/19/17 at 17:00 KIAH GARCIA MD Jan 20, 2017 18:36
[2017-01-21] VITALS (65 sets, daily range): BP systolic 83–140; BP diastolic 53–85; PULSE 59–92; RESP 13–31
[2017-01-21] MEDS: IPRATROPIUM (HFA) 12.9 GM INHALER INH SCH ×4 (01:38→19:19)
[2017-01-21] MEDS: ALBUTEROL 18 GM INHALER INH SCH ×4 (01:38→19:19)
[2017-01-21] MEDS: ACETYLCYSTEINE 20% 4 ML VIAL NEB SCH ×4 (01:39→19:19)
[2017-01-21 05:18] LABS: ADD SCAN DIFF NO
[2017-01-21 05:23] LABS: BASOPHILS % 0.4 % (0.0-2.0); EOSINOPHILS # 0.7 10^3/ul (0.0-0.5); EOSINOPHILS % 7.6 % (0.0-7.0); HEMOGLOBIN 8.8 g/dl (12.0-16.0); LYMPHOCYTES # 1.6 10^3/ul (0.8-2.9); LYMPHOCYTES % 17.6 % (15.0-51.0); MEAN CORPUSCULAR HEMOGLOBIN 28.4 pg (29.0-33.0); MEAN CORPUSCULAR HGB CONC 31.4 g/dl (32.0-37.0); MEAN CORPUSCULAR VOLUME 90.3 fl (82.0-101.0); MEAN PLATELET VOLUME 11.8 fl (7.4-10.4); MONOCYTE # 0.7 10^3/ul (0.3-0.9); MONOCYTES % 8.1 % (0.0-11.0); NEUTROPHIL # 6.1 10^3/ul (1.6-7.5); PLATELET COUNT 151 10^3/UL (140-415); RED CELL DISTRIBUTION WIDTH 19.2 % (11.5-14.5); WHITE BLOOD COUNT 9.2 10^3/ul (4.8-10.8)
[2017-01-21 05:48] LABS: CALCIUM 9.3 mg/dl (8.4-10.2); CREATININE 2.47 mg/dl (0.44-1.00); MAGNESIUM 1.9 mg/dl (1.7-2.5); PHOSPHORUS 3.5 mg/dl (2.5-4.9); POTASSIUM 4.8 mmol/L (3.5-5.1)
[2017-01-21] MEDS: INSULIN ASPART [NOVOLOG] 3 ML PEN SC SCH ×4 (06:00→23:23)
--- NOTE | 2017-01-21 07:51 | CONS ---
Date/Time of Note Date/Time of Note DATE: 01/21/17 TIME: 07:43 Consult Date/Type/Reason Admit Date/Time Jan 07, 2017 at 12:43 Initial Consult Date 01/07/17 Type of Consultation: neph Ordering Provider: YAYO EDGAR This is a 66-year-old female with a past medical history of breast cancer status post bilateral mastectomy in 1992, who initially presented to [facility] several months ago for respiratory failure secondary to pneumonia. The patient during that hospital course, underwent trach and PEG and was complicated with C. diff colitis and was treated with vancomycin. The patient was then transferred to [facility] for continued care where she was treated for ARDS, pulmonary edema. The patient went into acute renal failure, was started initially on hemodialysis. 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 The patient's course was further complicated at [facility] due to bacteremia with Staph hominis and E. coli. The patient also developed DIC and thrombocytopenia before being stabilized. The patient was then transferred to [facility] where she was receiving care, was being weaned off ventilatory support. The pt was then transferred to [facility] and eventually [facility]. Admitted with resp failure. She had cxr showed pulmonary congestion. Pt was placed on fio2 100 on vent. She was also given breathing treatments. on high o2 requirements. pt. seen and examined in icu. d/w rn, off pressors. trach ok. on vent 75%fio2. on hd today. arousable and comfortable. poc reviewed with dr. oconnor. HEENT: Head is normocephalic. NECK: Supple. HEART: Irregular LUNGS: Show diminished breath sounds at base. ABDOMEN: Soft, nontender to palpation without rebound or guarding. EXTREMITIES: Negative for clubbing, cyanosis. Positive edema, DERMATOLOGIC: No rashes. MUSCULOSKELETAL: No joint effusions, NEUROLOGIC: No change in exam. Objective Vital Signs Date Time Temp Pulse Resp B/P Pulse Ox O2 Delivery O2 Flow Rate FiO2 01/21/17 07:01 97.3 88 26 83/65 95 Mechanical Ventilator 01/21/17 05:25 90 Intake and Output 01/20/17 01/20/17 01/21/17 15:00 23:00 07:00 Intake Total 765.62 ml 300 ml Balance 765.62 ml 300 ml Results/Medications Result Diagram: 01/21/17 0450 01/21/17 0450 Results 24 hrs Laboratory Tests Test 01/20/17 11:11 01/20/17 17:24 01/20/17 23:58 01/21/17 04:50 Bedside Glucose 116 102 98 White Blood Count 9.2 Red Blood Count 3.10 L Hemoglobin 8.8 L Hematocrit 28.0 L Mean Corpuscular Volume 90.3 Mean Corpuscular Hemoglobin 28.4 L Mean Corpuscular Hemoglobin Concent 31.4 L Red Cell Distribution Width 19.2 H Platelet Count 151 Mean Platelet Volume 11.8 H Neutrophils % 66.0 Lymphocytes % 17.6 Monocytes % 8.1 Eosinophils % 7.6 H Basophils % 0.4 Nucleated Red Blood Cells % 0.0 Neutrophils # 6.1 Lymphocytes # 1.6 Monocytes # 0.7 Eosinophils # 0.7 H Basophils # 0.0 Nucleated Red Blood Cells # 0.0 Sodium Level 143 Potassium Level 4.8 Chloride Level 102 Carbon Dioxide Level 23 Anion Gap 23 #H Blood Urea Nitrogen 70 H Creatinine 2.47 H Glucose Level 95 Calcium Level 9.3 Phosphorus Level 3.5 Magnesium Level 1.9 Test 01/21/17 06:10 Bedside Glucose 97 Medications Current Medications Acetaminophen (Tylenol Liquid) 650 mg Q4H PRN GTB PAIN OR TEMP ABOVE 38C Last administered on 01/18/17 23:14; Admin Dose 650 MG; Start 01/07/17 at 13:00 Diphenhydramine HCl (Benadryl) 25 mg Q6H PRN GTB ITCHING Last administered on 18:32; Admin Dose 25 MG; Start 01/07/17 at 13:00 Multivit/Ca Carb/ B Cmplx/FA/Prenat (Macrina-Brigitte) 1 tab DAILY GTB Last administered on 01/20/17 08:54; Admin Dose 1 TAB; Start 01/08/17 at 09:00 Ondansetron HCl (Zofran Tab) 4 mg Q4H PRN GTB NAUSEA AND/OR VOMITING Last administered on 01/15/17 05:07; Admin Dose 4 MG; Start 01/07/17 at 13:00 Miscellaneous Information 1 ea NOTE XX ; Start 01/07/17 at 23:45 Glucose (Glutose) 15 gm Q15M PRN PO DECREASED GLUCOSE; Start 01/07/17 at 23:45 Glucose (Glutose) 22.5 gm Q15M PRN PO DECREASED GLUCOSE; Start 01/07/17 at 23:45 Dextrose (D50w Syringe) 25 ml Q15M PRN IV DECREASED GLUCOSE; Start 01/07/17 at 23:45 Dextrose (D50w Syringe) 50 ml Q15M PRN IV DECREASED GLUCOSE; Start 01/07/17 at 23:45 Glucagon (Glucagen) 1 mg Q15M PRN IM DECREASED GLUCOSE; Start 01/07/17 at 23:45 Glucose (Glutose) 15 gm Q15M PRN BUCCAL DECREASED GLUCOSE; Start 01/07/17 at 23: 45 Miscellaneous Information (Pending [facility] Order For Wound Care) This patient lopez... PRN PRN XX WOUND CARE; Start 01/08/17 at 07:30 Insulin Aspart NOVOLOG *MILD* ALGORI... Q6 SC Last administered on 01/18/17 11 :59; Admin Dose 1 UNIT; Start 01/08/17 at 12:00 Caspofungin/ Sodium Chloride (Cancidas/NS) 250 ml @ 250 mls/hr Q24H IVPB Last administered on 01/20/17 11:21; Admin Dose 250 MLS/HR; Start 01/09/17 at 12:00 Heparin Sodium (Porcine) (Heparin (5000 Units/0.5 ml)) 5,000 unit BID SC Last administered on 01/20/17 20:45; Admin Dose 5,000 UNIT; Start 01/10/17 at 21:00 Lorazepam (Ativan) 1 mg Q6H PRN PO Agitation Last administered on 01/19/17 08: 10; Admin Dose 1 MG; Start 01/10/17 at 13:30; Status Future Hold Linezolid 600 mg 600 mg BID PO Last administered on 01/20/17 20:42; Admin Dose 600 MG; Start 01/10/17 at 15:00 Midazolam HCl (Versed) 50 ml @ 1 mls/hr TITRATE IV ; Start 01/11/17 at 11:00 Escitalopram Oxalate 10 mg 10 mg DAILY GTB Last administered on 01/20/17 08:54 ; Admin Dose 10 MG; Start 7/7/17 at 09:00 Norepinephrine 16 mg/Dextrose 500 ml @ 1.87 mls/hr TITRATE IV Last administered on 01/18/17 11:40; Admin Dose 11.25 MLS/HR; Start 01/15/17 at 23:45 Meropenem/Sodium Chloride (Merrem 500mg/50 ml(Pmx)) 50 ml @ 200 mls/hr Q24H IVPB Last administered on 01/20/17 14:04; Admin Dose 200 MLS/HR; Start at 14:00 Midodrine (Proamatine) 10 mg BID@09,17 NGT Last administered on 01/20/17 17:24 ; Admin Dose 10 MG; Start 01/18/17 at 09:00 Oxycodone HCl (Roxicodone) 5 mg Q4H PRN PO PAIN Last administered on 01/20/17 23:59; Admin Dose 5 MG; Start 01/18/17 at 12:00 IV Flush (NS 10 ml) 10 ml PRN PRN IV IV PROTOCOL; Start 01/19/17 at 17:00 Assessment/Plan Chief Complaint/Hosp Course 1. hypoxemic respiratory failure. etiology likely multifactorial, chf, ? pna,, ? Anxiety -CT angios showed interstitial edema pulmonary edema, no evidence of PE FiO2 remains high, will taper. plan - Questionable aspergillus infection given thick mucoid secretions. -Follow-up with pulmonary. consider bronch -Monitor 2. septic shock Secondary to UTI, pneumonia, -Urine culture is positive yeast. chest x-ray suggests possible infiltrate -Patient on pressor support, broad-spectrum antibiotics/antifungal -off pressors Follow-up with infectious disease 3. Encephalopathy, acute. Etiology is likely secondary to toxic metabolic -Mental status appears to be improving continue to monitor 4. Dysphagia, status post percutaneous endoscopic gastrostomy. -Continue tube feeding. 5. ESRD -on hd today -assess daily for hd needs. 7. Atrial fibrillation, currently rate controlled. Continue medical management. -Off anticoagulation secondary to previous bleed - Continue beta louise. We will follow up with cardiology. 8. Anemia. Continue to monitor hemoglobin and hematocrit levels. Continue Epogen 9. Mineral bone disease. Continue to monitor calcium and phosphorus levels. 10. History of breast cancer status post bilateral mastectomy. 11. Congestive heart failure. Continue medical management. 12. Diabetes. Continue Accu-Cheks and sliding scale. 13. History of Clostridium difficile colitis, status post treatment. 14. Gastrointestinal and deep venous thrombosis prophylaxis. Continue Protonix , SCD, heparin 15. Hypokalemia replete with potassium chloride as needed 16. Anxiety disorder. Will start patient on Lexapro 17. Hypokalemia. Monitor and replete potassium chloride as needed Please note I spent over 35 minutes critical care time with this patient Problems: TAMMIE HDZ MD Jan 21, 2017 07:50
[2017-01-21] MEDS: ESCITALOPRAM 10 MG TAB GTB SCH (08:35)
[2017-01-21] MEDS: MULTIVIT/CA CARB/B CMPLX/FA TAB GTB SCH (08:35)
[2017-01-21] MEDS: ZYVOX 600 MG TAB PO SCH ×2 (08:35→20:46)
[2017-01-21] MEDS: RISEDRONATE 5 MG TAB GTB SCH (08:35)
[2017-01-21] MEDS: LANSOPRAZOLE 30 MG CAP GTB SCH (08:35)
[2017-01-21] MEDS: HEPARIN 5,000 UNIT/0.5 ML VIAL SC SCH ×2 (08:38→20:51)
[2017-01-21] MEDS: MIDODRINE 5 MG TAB NGT SCH ×2 (08:44→16:12)
--- NOTE | 2017-01-21 09:47 | CONS ---
Date/Time of Note Date/Time of Note DATE: 01/21/17 TIME: 09:37 Assessment/Plan Assessment/Plan Chief Complaint/Hosp Course ID PROGRESS NOTE CURRENT ABX: Merrem #13 , Zyvox #13 , Cancidas #13 24H Interval Summary * No acute changes. Patient is off pressors, looks comfortable, afebrile * RECENT MICRO: * Stool for C. difficile sent on January 19 negative repeated blood cultures on January 18 and negative sputum culture grew normal respiratory herb * Initial Microbiology: Urine culture (+)Dilcia glabrata, wound culture growing enterococcus and coag negative staph species Physical Exam Const: 66 yo F, VSS, no fevers, VSS Head: Atraumatic. Eyes: Normal Conjunctiva. ENT: Normal External Ears, Nose and Mouth. Neck: TRACH present Resp: Clear to auscultation anterior and lateral, mild tachypnea Cardio: Regular rate and rhythm Abd: Soft, non distended, normal bowel sounds, non tender. G-tube Skin: No petechiae or rashes. Back: No midline or flank tenderness. Ext: No cyanosis, or edema. Neur: Encephalopathic Psych: Calm ID ASSESSMENT 1. s/p Sepsis w/transient hypotension, hypothermia, hypoxemia due to acute HCAP w/mucous plugging + Yeast UTI on admission = RESOLVED 2. Acute hypoxic respiratory failure on chronic VDRF -> Per pulmonary notes suspect mucous plugging 3. Recurrent HCAP 4. Yeast UTI 5. ESRD-> HD dependent 6. Dysphagia -> Peg 7. Pressure Decub Ulcers = Stage II => See photos & wound care notes (-)MRSA Nares INVASIVES: PICC, Trach, PEG, PermCath ABX ALLERGIES: Erythromycin base, Vancomycin CURRENT ABX: TOTAL DAY #13 Merrem , Zyvox, Cancidas ID RECOMMENDATIONS 1.Completing 14 day course ABX 4. Follow pulmonary recs 5. Wound care . . Problems: Consultation Date/Type/Reason Admit Date/Time Jan 07, 2017 at 12:43 Type of Consultation: ID Referring Provider: YAYO EDGAR DO Exam/Review of Systems Vital Signs Vitals Vital Signs Date Time Temp Pulse Resp B/P Pulse Ox O2 Delivery O2 Flow Rate FiO2 01/21/17 09:34 81 25 93 90 01/21/17 07:01 97.3 83/65 Mechanical Ventilator Intake and Output 01/20/17 01/20/17 01/21/17 15:00 23:00 07:00 Intake Total 765.62 ml 500 ml 600 ml Balance 765.62 ml 500 ml 600 ml Results Result Diagram: 01/21/17 0450 01/21/17 0450 Results 24 hrs Laboratory Tests Test 01/20/17 11:11 01/20/17 17:24 01/20/17 23:58 01/21/17 04:50 Bedside Glucose 116 102 98 White Blood Count 9.2 Red Blood Count 3.10 L Hemoglobin 8.8 L Hematocrit 28.0 L Mean Corpuscular Volume 90.3 Mean Corpuscular Hemoglobin 28.4 L Mean Corpuscular Hemoglobin Concent 31.4 L Red Cell Distribution Width 19.2 H Platelet Count 151 Mean Platelet Volume 11.8 H Neutrophils % 66.0 Lymphocytes % 17.6 Monocytes % 8.1 Eosinophils % 7.6 H Basophils % 0.4 Nucleated Red Blood Cells % 0.0 Neutrophils # 6.1 Lymphocytes # 1.6 Monocytes # 0.7 Eosinophils # 0.7 H Basophils # 0.0 Nucleated Red Blood Cells # 0.0 Sodium Level 143 Potassium Level 4.8 Chloride Level 102 Carbon Dioxide Level 23 Anion Gap 23 #H Blood Urea Nitrogen 70 H Creatinine 2.47 H Glucose Level 95 Calcium Level 9.3 Phosphorus Level 3.5 Magnesium Level 1.9 Test 01/21/17 06:10 Bedside Glucose 97 Medications Medications Current Medications Acetaminophen (Tylenol Liquid) 650 mg Q4H PRN GTB PAIN OR TEMP ABOVE 38C Last administered on 01/18/17 23:14; Admin Dose 650 MG; Start 01/07/17 at 13:00 Diphenhydramine HCl (Benadryl) 25 mg Q6H PRN GTB ITCHING Last administered on 18:32; Admin Dose 25 MG; Start 01/07/17 at 13:00 Multivit/Ca Carb/ B Cmplx/FA/Prenat (Macrina-Brigitte) 1 tab DAILY GTB Last administered on 01/21/17 08:35; Admin Dose 1 TAB; Start 01/08/17 at 09:00 Ondansetron HCl (Zofran Tab) 4 mg Q4H PRN GTB NAUSEA AND/OR VOMITING Last administered on 01/15/17 05:07; Admin Dose 4 MG; Start 01/07/17 at 13:00 Miscellaneous Information 1 ea NOTE XX ; Start 01/07/17 at 23:45 Glucose (Glutose) 15 gm Q15M PRN PO DECREASED GLUCOSE; Start 01/07/17 at 23:45 Glucose (Glutose) 22.5 gm Q15M PRN PO DECREASED GLUCOSE; Start 01/07/17 at 23:45 Dextrose (D50w Syringe) 25 ml Q15M PRN IV DECREASED GLUCOSE; Start 01/07/17 at 23:45 Dextrose (D50w Syringe) 50 ml Q15M PRN IV DECREASED GLUCOSE; Start 01/07/17 at 23:45 Glucagon (Glucagen) 1 mg Q15M PRN IM DECREASED GLUCOSE; Start 01/07/17 at 23:45 Glucose (Glutose) 15 gm Q15M PRN BUCCAL DECREASED GLUCOSE; Start 01/07/17 at 23: 45 Miscellaneous Information [facility] This patient lopez... PRN PRN XX WOUND CARE; Start 01/08/17 at 07:30 Insulin Aspart NOVOLOG *MILD* ALGORI... Q6 SC Last administered on 01/18/17 11 :59; Admin Dose 1 UNIT; Start 01/08/17 at 12:00 Caspofungin/ Sodium Chloride (Cancidas/NS) 250 ml @ 250 mls/hr Q24H IVPB Last administered on 01/20/17 11:21; Admin Dose 250 MLS/HR; Start 01/09/17 at 12:00 Heparin Sodium (Porcine) (Heparin (5000 Units/0.5 ml)) 5,000 unit BID SC Last administered on 01/21/17 08:38; Admin Dose 5,000 UNIT; Start 01/10/17 at 21:00 Lorazepam (Ativan) 1 mg Q6H PRN PO Agitation Last administered on 01/19/17 08: 10; Admin Dose 1 MG; Start 01/10/17 at 13:30; Status Future Hold Linezolid 600 mg 600 mg BID PO Last administered on 01/21/17 08:35; Admin Dose 600 MG; Start 01/10/17 at 15:00 Midazolam HCl (Versed) 50 ml @ 1 mls/hr TITRATE IV ; Start 01/11/17 at 11:00 Escitalopram Oxalate 10 mg 10 mg DAILY GTB Last administered on 01/21/17 08:35 ; Admin Dose 10 MG; Start 01/13/17 at 09:00 Norepinephrine 16 mg/Dextrose 500 ml @ 1.87 mls/hr TITRATE IV Last administered on 01/18/17 11:40; Admin Dose 11.25 MLS/HR; Start 01/15/17 at 23:45 Meropenem/Sodium Chloride (Merrem 500mg/50 ml(Pmx)) 50 ml @ 200 mls/hr Q24H IVPB Last administered on 01/20/17 14:04; Admin Dose 200 MLS/HR; Start at 14:00 Midodrine (Proamatine) 10 mg BID@09,17 NGT Last administered on 01/21/17 08:44 ; Admin Dose 10 MG; Start 01/18/17 at 09:00 Oxycodone HCl (Roxicodone) 5 mg Q4H PRN PO PAIN Last administered on 01/20/17 23:59; Admin Dose 5 MG; Start 01/18/17 at 12:00 IV Flush (NS 10 ml) 10 ml PRN PRN IV IV PROTOCOL; Start 01/19/17 at 17:00 MARINO DELGADO NP Jan 21, 2017 09:47
[2017-01-21] MEDS: CASPOFUNGIN 50 MG in SOD CHLORIDE 0.9% 250 ML IVPB SCH (11:29)
--- NOTE | 2017-01-21 12:05 | CONS ---
Date/Time of Note Date/Time of Note DATE: 01/21/17 TIME: 12:04 Consult Date/Type/Reason Admit Date/Time Jan 07, 2017 at 12:43 Initial Consult Date 01/08/17 Type of Consultation: Pulmonary Ordering Provider: YAYO EDGAR DO Subjective More agitated today with increasing agitation and oxygen requirements continue to go up. When she is calm and comfortable she requires less FiO2. Currently requiring FiO2 of 80% with a PEEP of 8. Discussed with staff patient has decreased secretions. Objective Vital Signs Date Time Temp Pulse Resp B/P Pulse Ox O2 Delivery O2 Flow Rate FiO2 01/21/17 11:42 80 25 95 90 01/21/17 11:00 100/61 Mechanical Ventilator 01/21/17 07:01 97.3 Intake and Output 01/20/17 01/20/17 01/21/17 14:59 22:59 06:59 Intake Total 771.24 ml 500 ml 600 ml Output Total 0 ml Balance 771.24 ml 500 ml 600 ml Exam PHYSICAL EXAMINATION GENERAL: Chronically ill-appearing lady intubated on mechanical ventilation VITAL SIGNS: see below. HEENT: Pupils equal, round, and reactive to light. Tracheostomy site clean and intact. CARDIAC: S1, S2, 1/6 systolic ejection murmur CHEST: Diminished air entry bilaterally. Few rales right base ABDOMEN: Mildly distended. Bowel sounds present no guarding or rebound EXTREMITIES: No cyanosis, clubbing edema +1 NEUROLOGIC: Generalized weakness Results/Medications Result Diagram: 01/21/17 0450 01/21/17 0450 Results 24 hrs Chest x-ray Improved aeration bilaterally. Laboratory Tests Test 01/20/17 17:24 01/20/17 23:58 01/21/17 04:50 01/21/17 06:10 Bedside Glucose 102 98 97 White Blood Count 9.2 Red Blood Count 3.10 L Hemoglobin 8.8 L Hematocrit 28.0 L Mean Corpuscular Volume 90.3 Mean Corpuscular Hemoglobin 28.4 L Mean Corpuscular Hemoglobin Concent 31.4 L Red Cell Distribution Width 19.2 H Platelet Count 151 Mean Platelet Volume 11.8 H Neutrophils % 66.0 Lymphocytes % 17.6 Monocytes % 8.1 Eosinophils % 7.6 H Basophils % 0.4 Nucleated Red Blood Cells % 0.0 Neutrophils # 6.1 Lymphocytes # 1.6 Monocytes # 0.7 Eosinophils # 0.7 H Basophils # 0.0 Nucleated Red Blood Cells # 0.0 Sodium Level 143 Potassium Level 4.8 Chloride Level 102 Carbon Dioxide Level 23 Anion Gap 23 #H Blood Urea Nitrogen 70 H Creatinine 2.47 H Glucose Level 95 Calcium Level 9.3 Phosphorus Level 3.5 Magnesium Level 1.9 Test 01/21/17 11:32 Bedside Glucose 99 Medications Current Medications Acetaminophen (Tylenol Liquid) 650 mg Q4H PRN GTB PAIN OR TEMP ABOVE 38C Last administered on 01/18/17 23:14; Admin Dose 650 MG; Start 01/07/17 at 13:00 Diphenhydramine HCl (Benadryl) 25 mg Q6H PRN GTB ITCHING Last administered on 18:32; Admin Dose 25 MG; Start 01/07/17 at 13:00 Multivit/Ca Carb/ B Cmplx/FA/Prenat (Macrina-Brigitte) 1 tab DAILY GTB Last administered on 01/21/17 08:35; Admin Dose 1 TAB; Start 01/08/17 at 09:00 Ondansetron HCl (Zofran Tab) 4 mg Q4H PRN GTB NAUSEA AND/OR VOMITING Last administered on 01/15/17 05:07; Admin Dose 4 MG; Start 01/07/17 at 13:00 Miscellaneous Information 1 ea NOTE XX ; Start 01/07/17 at 23:45 Glucose (Glutose) 15 gm Q15M PRN PO DECREASED GLUCOSE; Start 01/07/17 at 23:45 Glucose (Glutose) 22.5 gm Q15M PRN PO DECREASED GLUCOSE; Start 01/07/17 at 23:45 Dextrose (D50w Syringe) 25 ml Q15M PRN IV DECREASED GLUCOSE; Start 01/07/17 at 23:45 Dextrose (D50w Syringe) 50 ml Q15M PRN IV DECREASED GLUCOSE; Start 01/07/17 at 23:45 Glucagon (Glucagen) 1 mg Q15M PRN IM DECREASED GLUCOSE; Start 01/07/17 at 23:45 Glucose (Glutose) 15 gm Q15M PRN BUCCAL DECREASED GLUCOSE; Start 01/07/17 at 23: 45 Miscellaneous Information (Pending [facility] Order For Wound Care) This patient lopez... PRN PRN XX WOUND CARE; Start 01/08/17 at 07:30 Insulin Aspart NOVOLOG *MILD* ALGORI... Q6 SC Last administered on 01/18/17 11 :59; Admin Dose 1 UNIT; Start 01/08/17 at 12:00 Caspofungin/ Sodium Chloride (Cancidas/NS) 250 ml @ 250 mls/hr Q24H IVPB Last administered on 01/21/17 11:29; Admin Dose 250 MLS/HR; Start 01/09/17 at 12:00 Heparin Sodium (Porcine) (Heparin (5000 Units/0.5 ml)) 5,000 unit BID SC Last administered on 01/21/17 08:38; Admin Dose 5,000 UNIT; Start 01/10/17 at 21:00 Lorazepam (Ativan) 1 mg Q6H PRN PO Agitation Last administered on 01/19/17 08: 10; Admin Dose 1 MG; Start 01/10/17 at 13:30; Status Future Hold Linezolid 600 mg 600 mg BID PO Last administered on 01/21/17 08:35; Admin Dose 600 MG; Start 01/10/17 at 15:00 Midazolam HCl (Versed) 50 ml @ 1 mls/hr TITRATE IV ; Start 01/11/17 at 11:00 Escitalopram Oxalate 10 mg 10 mg DAILY GTB Last administered on 01/21/17 08:35 ; Admin Dose 10 MG; Start 01/13/17 at 09:00 Norepinephrine 16 mg/Dextrose 500 ml @ 1.87 mls/hr TITRATE IV Last administered on 01/18/17 11:40; Admin Dose 11.25 MLS/HR; Start 01/15/17 at 23:45 Meropenem/Sodium Chloride (Merrem 500mg/50 ml(Pmx)) 50 ml @ 200 mls/hr Q24H IVPB Last administered on 01/20/17 14:04; Admin Dose 200 MLS/HR; Start at 14:00 Midodrine (Proamatine) 10 mg BID@09,17 NGT Last administered on 01/21/17 08:44 ; Admin Dose 10 MG; Start 01/18/17 at 09:00 Oxycodone HCl (Roxicodone) 5 mg Q4H PRN PO PAIN Last administered on 01/20/17t 23:59; Admin Dose 5 MG; Start 01/18/17 at 12:00 IV Flush (NS 10 ml) 10 ml PRN PRN IV IV PROTOCOL; Start 01/19/17 at 17:00 Assessment/Plan Chief Complaint/Hosp Course IMP: 1. Acute on chronic hypoxemic respiratory failure possible component of worsening volume overload in addition to pneumonia. Questionable aspergillus infection given thick mucoid secretions. 2. UTI 3. VDRF 4. ESRD on HD status post hemodialysis today with volume removal 5. Anemia likely secondary to underlying renal disease RECS: 1. Decrease FiO2 and PEEP 2. Continue pulmonary toilet, will consider bronchoscopy if still having problems with secretions. If no improvement by Monday will perform bronchoscopy. 3. Continue hemodialysis with volume removal 4. continue antibiotics per ID, check IgE and aspergillus precipitants results were pending 5. continue Mucomyst 6. Continue Ativan and Lexapro. Critical care time 40 minutes Problems: RHONDA BU[facility]ROSTRO MD, [facility] Jan 21, 2017 12:05
[2017-01-21] MEDS: oxyCODONE 5 MG TAB PO PRN (13:51)
[2017-01-21] MEDS: MEROPENEM 500MG/50 ML (PMX) 50 ML IVPB SCH ×2 (14:00→16:12)
[2017-01-21] MEDS: EPOETIN 4000 UNITS/1 ML INJ (ESRD) SC SCH (18:26)
[2017-01-21] MEDS: DIPHENHYDRAMINE 25 MG CAP GTB PRN (23:26)
[2017-01-22] VITALS (101 sets, daily range): BP systolic 78–140; BP diastolic 51–99; PULSE 76–96; RESP 15–35
[2017-01-22] MEDS: ALBUTEROL 18 GM INHALER INH SCH ×4 (01:42→20:31)
[2017-01-22] MEDS: ACETYLCYSTEINE 20% 4 ML VIAL NEB SCH ×4 (01:42→20:30)
[2017-01-22] MEDS: IPRATROPIUM (HFA) 12.9 GM INHALER INH SCH ×4 (01:42→20:31)
[2017-01-22] MEDS: oxyCODONE 5 MG TAB PO PRN ×2 (01:55→08:08)
[2017-01-22 05:14] LABS: ADD SCAN DIFF NO
[2017-01-22 05:18] LABS: ABNORMAL IP MESSAGE 1; BASOPHILS % 0.4 % (0.0-2.0); EOSINOPHILS # 0.7 10^3/ul (0.0-0.5); HEMATOCRIT 28.4 % (37.0-47.0); HEMOGLOBIN 8.6 g/dl (12.0-16.0); LYMPHOCYTES % 18.1 % (15.0-51.0); MEAN CORPUSCULAR HEMOGLOBIN 27.8 pg (29.0-33.0); MEAN CORPUSCULAR HGB CONC 30.3 g/dl (32.0-37.0); MEAN CORPUSCULAR VOLUME 91.9 fl (82.0-101.0); MEAN PLATELET VOLUME 13.2 fl (7.4-10.4); MONOCYTE # 0.9 10^3/ul (0.3-0.9); MONOCYTES % 7.7 % (0.0-11.0); NEUTROPHIL # 7.4 10^3/ul (1.6-7.5); NEUTROPHILS % 67.3 % (39.0-77.0); PLATELET COUNT 138 10^3/UL (140-415); RED BLOOD COUNT 3.09 10^6/ul (4.20-5.40)
[2017-01-22 05:47] LABS: CALCIUM 8.9 mg/dl (8.4-10.2); CREATININE 1.87 mg/dl (0.44-1.00); POTASSIUM 4.6 mmol/L (3.5-5.1)
[2017-01-22] MEDS: INSULIN ASPART [NOVOLOG] 3 ML PEN SC SCH ×4 (06:00→23:42)
[2017-01-22] MEDS: LANSOPRAZOLE 30 MG CAP GTB SCH ×2 (07:05→08:07)
--- NOTE | 2017-01-22 07:59 | CONS ---
Date/Time of Note Date/Time of Note DATE: 01/22/17 TIME: 07:55 Consult Date/Type/Reason Admit Date/Time Jan 07, 2017 at 12:43 Initial Consult Date 01/07/17 Type of Consultation: im Ordering Provider: YAYO EDGAR This is a 66-year-old female with a past medical history of breast cancer status post bilateral mastectomy in 1992, who initially presented to [facility] several months ago for respiratory failure secondary to pneumonia. The patient during that hospital course, underwent trach and PEG and was complicated with C. diff colitis and was treated with vancomycin. The patient was then transferred to [facility] for continued care where she was treated for ARDS, pulmonary edema. The patient went into acute renal failure, was started initially on hemodialysis. 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 The patient's course was further complicated at [facility] due to bacteremia with Staph hominis and E. coli. The patient also developed DIC and thrombocytopenia before being stabilized. The patient was then transferred to [facility] where she was receiving care, was being weaned off ventilatory support. The pt was then transferred to [facility] and eventually [facility]. Admitted with resp failure. She had cxr showed pulmonary congestion. Pt was placed on fio2 100 on vent. She was also given breathing treatments. on high o2 requirements. pt. seen and examined in icu. d/w rn, on levophed trach ok. on vent 75%fio2. on hd yesterday arousable and comfortable. poc reviewed with dr. oconnor. HEENT: Head is normocephalic. NECK: Supple. HEART: Irregular LUNGS: Show diminished breath sounds at base. ABDOMEN: Soft, nontender to palpation without rebound or guarding. EXTREMITIES: Negative for clubbing, cyanosis. Positive edema, DERMATOLOGIC: No rashes. MUSCULOSKELETAL: No joint effusions, NEUROLOGIC: No change in exam. Objective Vital Signs Date Time Temp Pulse Resp B/P Pulse Ox O2 Delivery O2 Flow Rate FiO2 01/22/17 07:30 86 21 90/63 93 Mechanical Ventilator 01/22/17 07:11 90 01/22/17 07:00 98.2 Intake and Output 01/21/17 01/21/17 01/22/17 15:00 23:00 07:00 Intake Total 756.25 ml 1162.50 ml 676.86 ml Output Total 2300 ml Balance 756.25 ml -1137.50 ml 676.86 ml Results/Medications Result Diagram: 01/22/177 01/22/17 0437 Results 24 hrs Laboratory Tests Test 01/21/17 11:32 01/21/17 16:26 01/21/17 23:22 01/22/17 04:37 Bedside Glucose 99 127 104 White Blood Count 11.0 H Red Blood Count 3.09 L Hemoglobin 8.6 L Hematocrit 28.4 L Mean Corpuscular Volume 91.9 Mean Corpuscular Hemoglobin 27.8 L Mean Corpuscular Hemoglobin Concent 30.3 L Red Cell Distribution Width 19.0 H Platelet Count 138 L Mean Platelet Volume 13.2 H Neutrophils % 67.3 Lymphocytes % 18.1 Monocytes % 7.7 Eosinophils % 6.0 Basophils % 0.4 Nucleated Red Blood Cells % 0.0 Neutrophils # 7.4 Lymphocytes # 2.0 Monocytes # 0.9 Eosinophils # 0.7 H Basophils # 0.0 Nucleated Red Blood Cells # 0.0 Sodium Level 140 Potassium Level 4.6 Chloride Level 97 Carbon Dioxide Level 24 Anion Gap 24 H Blood Urea Nitrogen 51 H Creatinine 1.87 H Glucose Level 128 Calcium Level 8.9 Test 01/22/17 05:19 Bedside Glucose 101 Medications Current Medications Acetaminophen (Tylenol Liquid) 650 mg Q4H PRN GTB PAIN OR TEMP ABOVE 38C Last administered on 01/18/17 23:14; Admin Dose 650 MG; Start 01/07/17 at 13:00 Diphenhydramine HCl (Benadryl) 25 mg Q6H PRN GTB ITCHING Last administered on 23:26; Admin Dose 25 MG; Start 01/07/17 at 13:00 Multivit/Ca Carb/ B Cmplx/FA/Prenat (Macrina-Brigitte) 1 tab DAILY GTB Last administered on 01/21/17 08:35; Admin Dose 1 TAB; Start 01/08/17 at 09:00 Ondansetron HCl (Zofran Tab) 4 mg Q4H PRN GTB NAUSEA AND/OR VOMITING Last administered on 01/15/17 05:07; Admin Dose 4 MG; Start 01/07/17 at 13:00 Miscellaneous Information 1 ea NOTE XX ; Start 01/07/17 at 23:45 Glucose (Glutose) 15 gm Q15M PRN PO DECREASED GLUCOSE; Start 01/07/17 at 23:45 Glucose (Glutose) 22.5 gm Q15M PRN PO DECREASED GLUCOSE; Start 01/07/17 at 23:45 Dextrose (D50w Syringe) 25 ml Q15M PRN IV DECREASED GLUCOSE; Start 01/07/17 at 23:45 Dextrose (D50w Syringe) 50 ml Q15M PRN IV DECREASED GLUCOSE; Start 01/07/17 at 23:45 Glucagon (Glucagen) 1 mg Q15M PRN IM DECREASED GLUCOSE; Start 01/07/17 at 23:45 Glucose (Glutose) 15 gm Q15M PRN BUCCAL DECREASED GLUCOSE; Start 01/07/17 at 23: 45 Miscellaneous Information [facility] This patient lopez... PRN PRN XX WOUND CARE; Start 01/08/17 at 07:30 Insulin Aspart NOVOLOG *MILD* ALGORI... Q6 SC Last administered on 01/18/17 11 :59; Admin Dose 1 UNIT; Start 01/08/17 at 12:00 Caspofungin/ Sodium Chloride (Cancidas/NS) 250 ml @ 250 mls/hr Q24H IVPB Last administered on 01/21/17 11:29; Admin Dose 250 MLS/HR; Start 01/09/17 at 12:00 Heparin Sodium (Porcine) (Heparin (5000 Units/0.5 ml)) 5,000 unit BID SC Last administered on 01/21/17 20:51; Admin Dose 5,000 UNIT; Start 01/10/17 at 21:00 Lorazepam (Ativan) 1 mg Q6H PRN PO Agitation Last administered on 01/19/17 08: 10; Admin Dose 1 MG; Start 01/10/17 at 13:30; Status Future Hold Linezolid 600 mg 600 mg BID PO Last administered on 01/21/17 20:46; Admin Dose 600 MG; Start 01/10/17 at 15:00 Midazolam HCl (Versed) 50 ml @ 1 mls/hr TITRATE IV ; Start 01/11/17 at 11:00 Escitalopram Oxalate 10 mg 10 mg DAILY GTB Last administered on 01/21/17 08:35 ; Admin Dose 10 MG; Start 01/13/17 at 09:00 Norepinephrine 16 mg/Dextrose 500 ml @ 1.87 mls/hr TITRATE IV Last administered on 01/21/17 12:35; Admin Dose 18.75 MLS/HR; Start 01/15/17 at 23:45 Meropenem/Sodium Chloride (Merrem 500mg/50 ml(Pmx)) 50 ml @ 200 mls/hr Q24H IVPB Last administered on 01/21/17 16:12; Admin Dose 200 MLS/HR; Start at 14:00 Midodrine (Proamatine) 10 mg BID@09,17 NGT Last administered on 01/21/17 16:12 ; Admin Dose 10 MG; Start 01/18/17 at 09:00 Oxycodone HCl (Roxicodone) 5 mg Q4H PRN PO PAIN Last administered on 01/22/17 01:55; Admin Dose 5 MG; Start 01/18/17 at 12:00 IV Flush (NS 10 ml) 10 ml PRN PRN IV IV PROTOCOL; Start 01/19/17 at 17:00 Assessment/Plan Chief Complaint/Hosp Course 1. hypoxemic respiratory failure. etiology likely multifactorial, chf, ? pna,, ? Anxiety -CT angios showed interstitial edema pulmonary edema, no evidence of PE FiO2 remains high, will taper. plan - Questionable aspergillus infection given thick mucoid secretions. -Follow-up with pulmonary. consider bronch -Monitor 2. septic shock Secondary to UTI, pneumonia, -Urine culture is positive yeast. chest x-ray suggests possible infiltrate -Patient on pressor support, broad-spectrum antibiotics/antifungal -off pressors Follow-up with infectious disease 3. Encephalopathy, acute. Etiology is likely secondary to toxic metabolic -Mental status appears to be improving continue to monitor 4. Dysphagia, status post percutaneous endoscopic gastrostomy. -Continue tube feeding. 5. ESRD -on hd on qod schedule -assess daily for hd needs. 7. Atrial fibrillation, currently rate controlled. Continue medical management. -Off anticoagulation secondary to previous bleed - Continue beta louise. We will follow up with cardiology. 8. Anemia. Continue to monitor hemoglobin and hematocrit levels. Continue Epogen 9. Mineral bone disease. Continue to monitor calcium and phosphorus levels. 10. History of breast cancer status post bilateral mastectomy. 11. Congestive heart failure. Continue medical management. 12. Diabetes. Continue Accu-Cheks and sliding scale. 13. History of Clostridium difficile colitis, status post treatment. 14. Gastrointestinal and deep venous thrombosis prophylaxis. Continue Protonix , SCD, heparin 15. Anxiety disorder. on Lexapro Please note I spent over 35 minutes critical care time with this patient Problems: TAMMIE HDZ MD Jan 22, 2017 07:59
[2017-01-22] MEDS: RISEDRONATE 5 MG TAB GTB SCH (08:07)
[2017-01-22] MEDS: DIPHENHYDRAMINE 25 MG CAP GTB PRN ×2 (08:07→15:02)
[2017-01-22] MEDS: ZYVOX 600 MG TAB PO SCH (08:07)
[2017-01-22] MEDS: MIDODRINE 5 MG TAB NGT SCH ×2 (08:07→17:15)
[2017-01-22] MEDS: ESCITALOPRAM 10 MG TAB GTB SCH (08:07)
[2017-01-22] MEDS: MULTIVIT/CA CARB/B CMPLX/FA TAB GTB SCH (08:07)
[2017-01-22] MEDS: HEPARIN 5,000 UNIT/0.5 ML VIAL SC SCH ×2 (08:16→21:11)
--- NOTE | 2017-01-22 10:50 | CONS ---
Date/Time of Note Date/Time of Note DATE: 01/22/17 TIME: 10:48 Consult Date/Type/Reason Admit Date/Time Jan 07, 2017 at 12:43 Initial Consult Date 01/08/17 Type of Consultation: Pulmonary ICU Ordering Provider: YAYO EDGAR DO Subjective Intermittent agitation with desaturation when she is agitated. Family at bedside this morning patient appears much calmer. Oxygen sats at 96% on 90% FiO2 with PEEP of 8. Decreased secretions. Objective Vital Signs Date Time Temp Pulse Resp B/P Pulse Ox O2 Delivery O2 Flow Rate FiO2 01/22/17 10:30 82 20 88/60 95 Mechanical Ventilator 01/22/17 09:25 90 01/22/17 07:00 98.2 Intake and Output 01/21/17 01/21/17 01/22/17 15:00 23:00 07:00 Intake Total 756.25 ml 1162.50 ml 676.86 ml Output Total 2300 ml Balance 756.25 ml -1137.50 ml 676.86 ml Exam PHYSICAL EXAMINATION GENERAL: Chronically ill-appearing lady intubated on mechanical ventilation VITAL SIGNS: see below. HEENT: Pupils equal, round, and reactive to light. Tracheostomy site clean and intact. CARDIAC: S1, S2, 1/6 systolic ejection murmur CHEST: Diminished air entry bilaterally. Few rales right base ABDOMEN: Mildly distended. Bowel sounds present no guarding or rebound EXTREMITIES: No cyanosis, clubbing edema +1 NEUROLOGIC: Generalized weakness Results/Medications Result Diagram: 01/22/17 0437 01/22/17 0437 Results 24 hrs Laboratory Tests Test 01/21/17 11:32 01/21/17 16:26 01/21/17 23:22 01/22/17 04:37 Bedside Glucose 99 127 104 White Blood Count 11.0 H Red Blood Count 3.09 L Hemoglobin 8.6 L Hematocrit 28.4 L Mean Corpuscular Volume 91.9 Mean Corpuscular Hemoglobin 27.8 L Mean Corpuscular Hemoglobin Concent 30.3 L Red Cell Distribution Width 19.0 H Platelet Count 138 L Mean Platelet Volume 13.2 H Neutrophils % 67.3 Lymphocytes % 18.1 Monocytes % 7.7 Eosinophils % 6.0 Basophils % 0.4 Nucleated Red Blood Cells % 0.0 Neutrophils # 7.4 Lymphocytes # 2.0 Monocytes # 0.9 Eosinophils # 0.7 H Basophils # 0.0 Nucleated Red Blood Cells # 0.0 Sodium Level 140 Potassium Level 4.6 Chloride Level 97 Carbon Dioxide Level 24 Anion Gap 24 H Blood Urea Nitrogen 51 H Creatinine 1.87 H Glucose Level 128 Calcium Level 8.9 Test 01/22/17 05:19 Bedside Glucose 101 Medications Current Medications Acetaminophen (Tylenol Liquid) 650 mg Q4H PRN GTB PAIN OR TEMP ABOVE 38C Last administered on 01/18/17 23:14; Admin Dose 650 MG; Start 01/07/17 at 13:00 Diphenhydramine HCl (Benadryl) 25 mg Q6H PRN GTB ITCHING Last administered on 08:07; Admin Dose 25 MG; Start 01/07/17 at 13:00 Multivit/Ca Carb/ B Cmplx/FA/Prenat (Macrina-Brigitte) 1 tab DAILY GTB Last administered on 01/22/17 08:07; Admin Dose 1 TAB; Start 01/08/17 at 09:00 Ondansetron HCl (Zofran Tab) 4 mg Q4H PRN GTB NAUSEA AND/OR VOMITING Last administered on 01/15/17 05:07; Admin Dose 4 MG; Start 01/07/17 at 13:00 Miscellaneous Information 1 ea NOTE XX ; Start 01/07/17 at 23:45 Glucose (Glutose) 15 gm Q15M PRN PO DECREASED GLUCOSE; Start 01/07/17 at 23:45 Glucose (Glutose) 22.5 gm Q15M PRN PO DECREASED GLUCOSE; Start 01/07/17 at 23:45 Dextrose (D50w Syringe) 25 ml Q15M PRN IV DECREASED GLUCOSE; Start 01/07/17 at 23:45 Dextrose (D50w Syringe) 50 ml Q15M PRN IV DECREASED GLUCOSE; Start 01/07/17 at 23:45 Glucagon (Glucagen) 1 mg Q15M PRN IM DECREASED GLUCOSE; Start 01/07/17 at 23:45 Glucose (Glutose) 15 gm Q15M PRN BUCCAL DECREASED GLUCOSE; Start 01/07/17 at 23: 45 Miscellaneous Information (Pending [facility] Order For Wound Care) This patient lopez... PRN PRN XX WOUND CARE; Start 01/08/17 at 07:30 Insulin Aspart NOVOLOG *MILD* ALGORI... Q6 SC Last administered on 01/18/17 11 :59; Admin Dose 1 UNIT; Start 01/08/17 at 12:00 Caspofungin/ Sodium Chloride (Cancidas/NS) 250 ml @ 250 mls/hr Q24H IVPB Last administered on 01/21/17 11:29; Admin Dose 250 MLS/HR; Start 01/09/17 at 12:00 Heparin Sodium (Porcine) (Heparin (5000 Units/0.5 ml)) 5,000 unit BID SC Last administered on 01/22/17 08:16; Admin Dose 5,000 UNIT; Start 01/10/17 at 21:00 Lorazepam (Ativan) 1 mg Q6H PRN PO Agitation Last administered on 01/19/17 08: 10; Admin Dose 1 MG; Start 01/10/17 at 13:30; Status Future Hold Linezolid 600 mg 600 mg BID PO Last administered on 01/22/17 08:07; Admin Dose 600 MG; Start 01/10/17 at 15:00 Midazolam HCl (Versed) 50 ml @ 1 mls/hr TITRATE IV ; Start 01/11/17 at 11:00 Escitalopram Oxalate 10 mg 10 mg DAILY GTB Last administered on 01/22/17 08:07 ; Admin Dose 10 MG; Start 01/13/17 at 09:00 Norepinephrine 16 mg/Dextrose 500 ml @ 1.87 mls/hr TITRATE IV Last administered on 01/21/17 12:35; Admin Dose 18.75 MLS/HR; Start 01/15/17 at 23:45 Meropenem/Sodium Chloride (Merrem 500mg/50 ml(Pmx)) 50 ml @ 200 mls/hr Q24H IVPB Last administered on 01/21/17 16:12; Admin Dose 200 MLS/HR; Start at 14:00 Midodrine (Proamatine) 10 mg BID@09,17 NGT Last administered on 01/22/17 08:07 ; Admin Dose 10 MG; Start 01/18/17 at 09:00 Oxycodone HCl (Roxicodone) 5 mg Q4H PRN PO PAIN Last administered on 01/22/17 08:08; Admin Dose 5 MG; Start 01/18/17 at 12:00 IV Flush (NS 10 ml) 10 ml PRN PRN IV IV PROTOCOL; Start 01/19/17 at 17:00 Assessment/Plan Chief Complaint/Hosp Course 1 IMP: 1. Acute on chronic hypoxemic respiratory failure possible component of worsening volume overload in addition to pneumonia. Questionable aspergillus infection given thick mucoid secretions. IgE less than 200. Not consistent with ABPA. 2. UTI 3. VDRF 4. ESRD on HD status post hemodialysis 5. Anemia likely secondary to underlying renal disease 6. Shock likely combination of sepsis and hypovolemia RECS: 1. Decrease FiO2 and PEEP 2. Continue pulmonary toilet, will consider bronchoscopy if still having problems with secretions. Discussed with patient's daughter at bedside need for bronchoscopy. We will continue to monitor at presents with such high FiO2 requirements and need for vasopressors patient is not stable for bronchoscopy. 3. Continue hemodialysis with volume removal 4. continue antibiotics per ID, check IgE and aspergillus precipitants results were pending, coccidiomycosis pending 5. continue Mucomyst 6. Continue pain control and medications for anxiety. Family wish to hold off on long-acting benzodiazepines if possible. Critical care time 40 minutes Long discussion with patient's daughter at bedside. Problems: RHONDA BU[facility]ROSTRO [facility] Jan 22, 2017 10:50
[2017-01-22] MEDS: CASPOFUNGIN 50 MG in SOD CHLORIDE 0.9% 250 ML IVPB SCH (11:49)
[2017-01-22] MEDS: MEROPENEM 500MG/50 ML (PMX) 50 ML IVPB SCH (14:18)
--- NOTE | 2017-01-22 17:08 | CONS ---
Date/Time of Note Date/Time of Note DATE: 01/22/17 TIME: 17:03 Assessment/Plan Assessment/Plan Chief Complaint/Hosp Course ID PROGRESS NOTE CURRENT ABX: Merrem #14 , Zyvox #14 , Cancidas #14 24H Interval Summary * STable, no fevers, intermittent agitation per notes, currently calm, WBC slightly up today, less secretions per RN * RECENT MICRO: * Stool for C. difficile sent on January 19 negative repeated blood cultures on January 18 and negative sputum culture grew normal respiratory herb * Initial Microbiology: Urine culture (+)Dilcia glabrata, wound culture growing enterococcus and coag negative staph species Physical Exam Const: 66 yo F, VSS, no fevers, VSS Head: Atraumatic. Eyes: Normal Conjunctiva. ENT: Normal External Ears, Nose and Mouth. Neck: TRACH present Resp: Clear to auscultation anterior and lateral, mild tachypnea Cardio: Regular rate and rhythm Abd: Soft, non distended, normal bowel sounds, non tender. G-tube Skin: No petechiae or rashes. Back: No midline or flank tenderness. Ext: No cyanosis, or edema. Neur: Encephalopathic Psych: Calm ID ASSESSMENT 1. s/p Sepsis w/transient hypotension, hypothermia, hypoxemia due to acute HCAP w/mucous plugging + Yeast UTI on admission = RESOLVED 2. Acute hypoxic respiratory failure on chronic VDRF -> Per pulmonary notes suspect mucous plugging 3. Recurrent HCAP 4. Yeast UTI 5. ESRD-> HD dependent 6. Dysphagia -> Peg 7. Pressure Decub Ulcers = Stage II => See photos & wound care notes (-)MRSA Nares INVASIVES: PICC, Trach, PEG, PermCath ABX ALLERGIES: Erythromycin base, Vancomycin CURRENT ABX: TOTAL DAY #14 Merrem , Zyvox, Cancidas => DC ABX TONIGHT ID RECOMMENDATIONS 1.Completed 14 day course ABX today => DC ABX and observe with ABX holiday 2. Local wound care 3. PRN T> 101 => Repeat Blood, urine, sputum, stool for C.Diff, wound cx . . Problems: Consultation Date/Type/Reason Admit Date/Time Jan 07, 2017 at 12:43 Type of Consultation: id Referring Provider: YAYO EDGAR DO Exam/Review of Systems Vital Signs Vitals Vital Signs Date Time Temp Pulse Resp B/P Pulse Ox O2 Delivery O2 Flow Rate FiO2 01/22/17 17:01 83 28 97 90 01/22/17 16:30 105/55 Mechanical Ventilator 01/22/17 16:00 98.2 Intake and Output 01/21/17 01/21/17 01/22/17 15:00 23:00 07:00 Intake Total 756.25 ml 1162.50 ml 676.86 ml Output Total 2300 ml Balance 756.25 ml -1137.50 ml 676.86 ml Results Result Diagram: 01/22/17 0437 01/22/17 0437 Results 24 hrs Laboratory Tests Test 01/21/17 23:22 01/22/17 04:37 01/22/17 05:19 01/22/17 11:48 Bedside Glucose 104 101 111 White Blood Count 11.0 H Red Blood Count 3.09 L Hemoglobin 8.6 L Hematocrit 28.4 L Mean Corpuscular Volume 91.9 Mean Corpuscular Hemoglobin 27.8 L Mean Corpuscular Hemoglobin Concent 30.3 L Red Cell Distribution Width 19.0 H Platelet Count 138 L Mean Platelet Volume 13.2 H Neutrophils % 67.3 Lymphocytes % 18.1 Monocytes % 7.7 Eosinophils % 6.0 Basophils % 0.4 Nucleated Red Blood Cells % 0.0 Neutrophils # 7.4 Lymphocytes # 2.0 Monocytes # 0.9 Eosinophils # 0.7 H Basophils # 0.0 Nucleated Red Blood Cells # 0.0 Sodium Level 140 Potassium Level 4.6 Chloride Level 97 Carbon Dioxide Level 24 Anion Gap 24 H Blood Urea Nitrogen 51 H Creatinine 1.87 H Glucose Level 128 Calcium Level 8.9 Medications Medications Current Medications Acetaminophen (Tylenol Liquid) 650 mg Q4H PRN GTB PAIN OR TEMP ABOVE 38C Last administered on 01/18/17 23:14; Admin Dose 650 MG; Start 01/07/17 at 13:00 Diphenhydramine HCl (Benadryl) 25 mg Q6H PRN GTB ITCHING Last administered on 15:02; Admin Dose 25 MG; Start 01/07/17 at 13:00 Multivit/Ca Carb/ B Cmplx/FA/Prenat (Macrina-Brigitte) 1 tab DAILY GTB Last administered on 01/22/17 08:07; Admin Dose 1 TAB; Start 01/08/17 at 09:00 Ondansetron HCl (Zofran Tab) 4 mg Q4H PRN GTB NAUSEA AND/OR VOMITING Last administered on 01/15/17 05:07; Admin Dose 4 MG; Start 01/07/17 at 13:00 Miscellaneous Information 1 ea NOTE XX ; Start 01/07/17 at 23:45 Glucose (Glutose) 15 gm Q15M PRN PO DECREASED GLUCOSE; Start 01/07/17 at 23:45 Glucose (Glutose) 22.5 gm Q15M PRN PO DECREASED GLUCOSE; Start 01/07/17 at 23:45 Dextrose (D50w Syringe) 25 ml Q15M PRN IV DECREASED GLUCOSE; Start 01/07/17 at 23:45 Dextrose (D50w Syringe) 50 ml Q15M PRN IV DECREASED GLUCOSE; Start 01/07/17 at 23:45 Glucagon (Glucagen) 1 mg Q15M PRN IM DECREASED GLUCOSE; Start 01/07/17 at 23:45 Glucose (Glutose) 15 gm Q15M PRN BUCCAL DECREASED GLUCOSE; Start 01/07/17 at 23: 45 [facility] This patient lopez... PRN PRN XX WOUND CARE; Start 01/08/17 at 07:30 Insulin Aspart NOVOLOG *MILD* ALGORI... Q6 SC Last administered on 01/18/17 11 :59; Admin Dose 1 UNIT; Start 01/08/17 at 12:00 Caspofungin/ Sodium Chloride (Cancidas/NS) 250 ml @ 250 mls/hr Q24H IVPB Last administered on 01/22/17 11:49; Admin Dose 250 MLS/HR; Start 01/09/17 at 12:00 Heparin Sodium (Porcine) (Heparin (5000 Units/0.5 ml)) 5,000 unit BID SC Last administered on 01/22/17 08:16; Admin Dose 5,000 UNIT; Start 01/10/17 at 21:00 Lorazepam (Ativan) 1 mg Q6H PRN PO Agitation Last administered on 01/19/17 08: 10; Admin Dose 1 MG; Start 01/10/17 at 13:30; Status Future Hold Linezolid 600 mg 600 mg BID PO Last administered on 01/22/17 08:07; Admin Dose 600 MG; Start 01/10/17 at 15:00 Midazolam HCl (Versed) 50 ml @ 1 mls/hr TITRATE IV ; Start 01/11/17 at 11:00 Escitalopram Oxalate 10 mg 10 mg DAILY GTB Last administered on 01/22/17 08:07 ; Admin Dose 10 MG; Start 01/13/17 at 09:00 Norepinephrine 16 mg/Dextrose 500 ml @ 1.87 mls/hr TITRATE IV Last administered on 01/21/17 12:35; Admin Dose 18.75 MLS/HR; Start 01/15/17 at 23:45 Meropenem/Sodium Chloride (Merrem 500mg/50 ml(Pmx)) 50 ml @ 200 mls/hr Q24H IVPB Last administered on 01/22/17 14:18; Admin Dose 200 MLS/HR; Start at 14:00 Midodrine (Proamatine) 10 mg BID@09,17 NGT Last administered on 01/22/17 08:07 ; Admin Dose 10 MG; Start 01/18/17 at 09:00 Oxycodone HCl (Roxicodone) 5 mg Q4H PRN PO PAIN Last administered on 01/22/17 08:08; Admin Dose 5 MG; Start 01/18/17 at 12:00 IV Flush (NS 10 ml) 10 ml PRN PRN IV IV PROTOCOL; Start 01/19/17 at 17:00 MARINO DELGADO NP Jan 22, 2017 17:08
[2017-01-23] VITALS (99 sets, daily range): BP systolic 59–135; BP diastolic 41–105; PULSE 66–129; RESP 0–55
[2017-01-23] MEDS: oxyCODONE 5 MG TAB PO PRN ×2 (00:23→04:59)
[2017-01-23] MEDS: DIPHENHYDRAMINE 25 MG CAP GTB PRN ×2 (00:23→13:25)
[2017-01-23] MEDS: IPRATROPIUM (HFA) 12.9 GM INHALER INH SCH ×4 (01:10→20:03)
[2017-01-23] MEDS: ALBUTEROL 18 GM INHALER INH SCH ×4 (01:10→20:03)
[2017-01-23] MEDS: ACETYLCYSTEINE 20% 4 ML VIAL NEB SCH ×4 (01:10→20:03)
[2017-01-23 04:37] LABS: ADD SCAN DIFF NO
[2017-01-23 04:39] LABS: BASOPHILS % 0.2 % (0.0-2.0); EOSINOPHILS # 0.2 10^3/ul (0.0-0.5); EOSINOPHILS % 1.5 % (0.0-7.0); HEMATOCRIT 27.9 % (37.0-47.0); HEMOGLOBIN 8.8 g/dl (12.0-16.0); LYMPHOCYTES # 1.9 10^3/ul (0.8-2.9); LYMPHOCYTES % 12.2 % (15.0-51.0); MEAN CORPUSCULAR HEMOGLOBIN 28.6 pg (29.0-33.0); MEAN CORPUSCULAR HGB CONC 31.5 g/dl (32.0-37.0); MEAN CORPUSCULAR VOLUME 90.6 fl (82.0-101.0); MEAN PLATELET VOLUME 12.1 fl (7.4-10.4); MONOCYTE # 1.1 10^3/ul (0.3-0.9); NEUTROPHIL # 12.4 10^3/ul (1.6-7.5); NEUTROPHILS % 78.5 % (39.0-77.0); PLATELET COUNT 140 10^3/UL (140-415); RED BLOOD COUNT 3.08 10^6/ul (4.20-5.40); RED CELL DISTRIBUTION WIDTH 18.8 % (11.5-14.5); WHITE BLOOD COUNT 15.9 10^3/ul (4.8-10.8)
[2017-01-23] MEDS: ACETAMINOPHEN 650MG/20.3ML CUP GTB PRN (04:56)
[2017-01-23 05:12] LABS: ALBUMIN 3.9 g/dl (3.3-4.9); ALBUMIN/GLOBULIN RATIO 0.92; BILIRUBIN,INDIRECT 0.2 mg/dl (0-1.1); BILIRUBIN,TOTAL 0.2 mg/dl (0.2-1.3); CALCIUM 9.1 mg/dl (8.4-10.2); CREATININE 2.49 mg/dl (0.44-1.00); MAGNESIUM 1.8 mg/dl (1.7-2.5); PHOSPHORUS 4.2 mg/dl (2.5-4.9); POTASSIUM 5.6 mmol/L (3.5-5.1); TOTAL PROTEIN 8.1 g/dl (6.1-8.1)
[2017-01-23] MEDS: INSULIN ASPART [NOVOLOG] 3 ML PEN SC SCH ×4 (06:00→23:55)
[2017-01-23] MEDS: ESCITALOPRAM 10 MG TAB GTB SCH (08:17)
[2017-01-23] MEDS: MULTIVIT/CA CARB/B CMPLX/FA TAB GTB SCH (08:17)
[2017-01-23] MEDS: RISEDRONATE 5 MG TAB GTB SCH (08:17)
[2017-01-23] MEDS: LANSOPRAZOLE 30 MG CAP GTB SCH (08:17)
[2017-01-23] MEDS: HEPARIN 5,000 UNIT/0.5 ML VIAL SC SCH ×2 (08:18→21:10)
--- NOTE | 2017-01-23 08:20 | PN ---
Date/Time of Note Date/Time of Note DATE: 01/23/17 TIME: 08:16 Assessment/Plan Lines/Catheters IV Catheter Type (from [facility]): PICC Line Urinary Cath still in place: No Assessment/Plan Chief Complaint/Hosp Course 1. hypoxemic respiratory failure. etiology likely multifactorial, chf, ? pna,, ? Anxiety -CT angios showed interstitial edema pulmonary edema, no evidence of PE FiO2 remains high plan -Patient continues to have episodes of desaturation -Consider bronchoscopy -Follow-up with pulmonary -Monitor 2. septic shock Secondary to UTI, pneumonia, UUrine culture is positive yeast. chest x-ray suggests possible infiltrate -Patient on pressor support, broad-spectrum antibiotics/antifungal -Wean off pressors slowly Follow-up with infectious disease 3. Encephalopathy, acute. Etiology is likely secondary to toxic metabolic -Mental status appears to be improving continue to monitor 4. Dysphagia, status post percutaneous endoscopic gastrostomy. -Continue tube feeding. 5. ESRD -HD today 7. Atrial fibrillation, currently rate controlled. Continue medical management. -Off anticoagulation secondary to previous bleed - Continue beta louise. We will follow up with cardiology. 8. Anemia. Continue to monitor hemoglobin and hematocrit levels. Continue Epogen 9. Mineral bone disease. Continue to monitor calcium and phosphorus levels. 10. History of breast cancer status post bilateral mastectomy. 11. Congestive heart failure. Continue medical management. 12. Diabetes. Continue Accu-Cheks and sliding scale. 13. History of Clostridium difficile colitis, status post treatment. 14. Gastrointestinal and deep venous thrombosis prophylaxis. Continue Protonix , SCD, heparin 15. hyperkalemia Dialysis on 2 potassium bath 16. Anxiety disorder. Will start patient on Lexapro 17. Hypokalemia. Monitor and replete potassium chloride as needed Please note I spent over 35 minutes critical care time with this patient Problems: Subjective 24 Hr Interval Summary Free Text/Dictation Patient remains critically ill on pressure support patient continues to have episodes of desaturation required bagging twice overnight. Scheduled for hemodialysis today Exam/Review of Systems Vital Signs Vitals Vital Signs Date Time Temp Pulse Resp B/P Pulse Ox O2 Delivery O2 Flow Rate FiO2 01/23/17 06:15 98 27 87/59 95 01/23/17 06:00 Mechanical Ventilator 01/23/17 05:00 90 01/23/17 04:00 98.4 Intake and Output 01/22/17 01/22/17 01/23/17 15:00 23:00 07:00 Intake Total 871.22 ml 574.96 ml 415.59 ml Balance 871.22 ml 574.96 ml 415.59 ml Exam HEENT: Head is normocephalic. NECK: Supple. HEART: Irregular LUNGS: Show diminished breath sounds at base. ABDOMEN: Soft, nontender to palpation without rebound or guarding. EXTREMITIES: Negative for clubbing, cyanosis. Positive edema, DERMATOLOGIC: No rashes. MUSCULOSKELETAL: No joint effusions, NEUROLOGIC: No change in exam. Results Result Diagram: 01/23/1739901/23/17399 Results 24 hrs Laboratory Tests Test 01/22/17 11:48 01/22/17 17:15 01/22/17 23:40 01/23/17 04:00 Bedside Glucose 111 108 110 White Blood Count 15.9 #H Red Blood Count 3.08 L Hemoglobin 8.8 L Hematocrit 27.9 L Mean Corpuscular Volume 90.6 Mean Corpuscular Hemoglobin 28.6 L Mean Corpuscular Hemoglobin Concent 31.5 L Red Cell Distribution Width 18.8 H Platelet Count 140 Mean Platelet Volume 12.1 H Neutrophils % 78.5 H Lymphocytes % 12.2 L Monocytes % 7.0 Eosinophils % 1.5 Basophils % 0.2 Nucleated Red Blood Cells % 0.0 Neutrophils # 12.4 H Lymphocytes # 1.9 Monocytes # 1.1 H Eosinophils # 0.2 Basophils # 0.0 Nucleated Red Blood Cells # 0.0 Sodium Level 139 Potassium Level 5.6 H Chloride Level 96 L Carbon Dioxide Level 20 L Anion Gap 29 H Blood Urea Nitrogen 85 #H Creatinine 2.49 H Glucose Level 93 Calcium Level 9.1 Phosphorus Level 4.2 Magnesium Level 1.8 Total Bilirubin 0.2 Direct Bilirubin 0.00 Indirect Bilirubin 0.2 Aspartate Amino Transf (AST/SGOT) 22 Alanine Aminotransferase (ALT/SGPT) 21 Alkaline Phosphatase 84 Total Protein 8.1 Albumin 3.9 Globulin 4.20 H Albumin/Globulin Ratio 0.92 Test 01/23/17 05:37 01/23/17 05:38 01/23/17 06:34 Bedside Glucose 170 151 117 Medications Medications Current Medications Acetaminophen (Tylenol Liquid) 650 mg Q4H PRN GTB PAIN OR TEMP ABOVE 38C Last administered on 01/23/17t 04:56; Admin Dose 650 MG; Start 01/07/17 at 13:00 Diphenhydramine HCl (Benadryl) 25 mg Q6H PRN GTB ITCHING Last administered on 00:23; Admin Dose 25 MG; Start 01/07/17 at 13:00 Multivit/Ca Carb/ B Cmplx/FA/Prenat (Macrina-Brigitte) 1 tab DAILY GTB Last administered on 01/22/17 08:07; Admin Dose 1 TAB; Start 01/08/17 at 09:00 Ondansetron HCl (Zofran Tab) 4 mg Q4H PRN GTB NAUSEA AND/OR VOMITING Last administered on 01/15/17 05:07; Admin Dose 4 MG; Start 01/07/17 at 13:00 Miscellaneous Information 1 ea NOTE XX ; Start 01/07/17 at 23:45 Glucose (Glutose) 15 gm Q15M PRN PO DECREASED GLUCOSE; Start 01/07/17 at 23:45 Glucose (Glutose) 22.5 gm Q15M PRN PO DECREASED GLUCOSE; Start 01/07/17 at 23:45 Dextrose (D50w Syringe) 25 ml Q15M PRN IV DECREASED GLUCOSE; Start 01/07/17 at 23:45 Dextrose (D50w Syringe) 50 ml Q15M PRN IV DECREASED GLUCOSE; Start 01/07/17 at 23:45 Glucagon (Glucagen) 1 mg Q15M PRN IM DECREASED GLUCOSE; Start 01/07/17 at 23:45 Glucose (Glutose) 15 gm Q15M PRN BUCCAL DECREASED GLUCOSE; Start 01/07/17 at 23: 45 Miscellaneous Information (Pending [facility] Order For Wound Care) This patient lopez... PRN PRN XX WOUND CARE; Start 01/08/17 at 07:30 Insulin Aspart (Novolog Insulin Pen) NOVOLOG *MILD* ALGORI... Q6 SC Last administered on 01/18/17 11:59; Admin Dose 1 UNIT; Start 01/08/17 at 12:00 Heparin Sodium (Porcine) (Heparin (5000 Units/0.5 ml)) 5,000 unit BID SC Last administered on 01/22/17 21:11; Admin Dose 5,000 UNIT; Start 01/10/17 at 21:00 Lorazepam 1 mg 1 mg Q6H PRN PO Agitation Last administered on 01/19/17 08:10; Admin Dose 1 MG; Start 01/10/17 at 13:30; Status Future Hold Midazolam HCl (Versed) 50 ml @ 1 mls/hr TITRATE IV ; Start 01/11/17 at 11:00 Escitalopram Oxalate 10 mg 10 mg DAILY GTB Last administered on 01/22/17 08:07 ; Admin Dose 10 MG; Start 01/13/17 at 09:00 Norepinephrine/ Dextrose (Levophed/D5W) 500 ml @ 1.87 mls/hr TITRATE IV Last administered on 01/21/17 12:35; Admin Dose 18.75 MLS/HR; Start 01/15/17 at 23:45 Midodrine (Proamatine) 10 mg BID@09,17 NGT Last administered on 01/22/17 17:15 ; Admin Dose 10 MG; Start 01/18/17 at 09:00 Oxycodone HCl (Roxicodone) 5 mg Q4H PRN PO PAIN Last administered on 01/23/17 04:59; Admin Dose 5 MG; Start 01/18/17 at 12:00 IV Flush (NS 10 ml) 10 ml PRN PRN IV IV PROTOCOL; Start 01/19/17 at 17:00 CHARLIE BUSBY DO Jan 23, 2017 08:20
[2017-01-23] MEDS: MIDODRINE 5 MG TAB NGT SCH ×2 (09:32→16:19)
--- NOTE | 2017-01-23 09:45 | RADRPT ---
PROCEDURE: XR Chest. CLINICAL INDICATION: 66-year-old female with CHF. TECHNIQUE: Single frontal view of the chest was obtained. COMPARISON: Chest x-ray 10/12/2016 07:46 a.m. chest x-ray 01/19/2017 04:27 p.m. FINDINGS: There are clips in the left axilla. There is a dual chamber cardiac pacemaker with electrode leads at the level of the right atrium and right ventricle. There are degenerative osteophytes in the tho racic spine with a dextro scoliosis of the mid thoracic spine. The heart is mildly enlarged. The c ardiomediastinal silhouette and hilar structures are normal. The pulmonary vasculature is equilibrat ed. There are vascular calcifications in the aortic arch. There are interstitial infiltrates in the perihilar areas and confluent infiltrate obscuring the periphery of the right lower lobe. A PICC l ine catheter enters the right arm with its tip in the superior vena cava. There are clips in the ri ght axilla. The left costophrenic angle is normal. IMPRESSION: 1. The asymmetric interstitial pulmonary infiltrates which secondary to pulmonary edema are unchange d. 2. Cardiomegaly. 3. The tracheostomy tube is well positioned near T4 with its tip 3.4 cm superior to the patric. 4. Dialysis catheter with its tip in the right atrium. 5. Dual chamber cardiac pacemaker. 6. Bilateral axillary node dissection. 7. Atherosclerotic vascular disease. RPTAT:AAJJ Physician Katerin Date Time Electronically viewed and signed by Carl Urban Physician on 01/23/2017 09:45 DIAMOND/
--- NOTE | 2017-01-23 12:19 | CONS ---
Date/Time of Note Date/Time of Note DATE: 01/23/17 TIME: 12:17 Assessment/Plan Assessment/Plan Chief Complaint/Hosp Course Restarted on Levophed drip awake looks comfortable Temperature 98 pulse 84 respirations 20 blood pressure 110/69 saturation 94 on 70 FiO2 WBC 12.7 H&H 9 and 29 platelets 140 neutrophils 79.5 Antimicrobials: Flagyl Indwelling: PICC line trach PEG right chest permacath Allergy: Erythromycin, vancomycin Physical examination: Chronically ill-appearing elderly woman who is in no distress. Head atraumatic normocephalic, sclera nonicteric, neck is supple, tracheostomy present. Chest rise symmetrical, breath sounds diminished basis. Heart S1-S2. Abdomen soft, bowel tones present. Extremities no cyanosis Assessment: 1. Acute on chronic Hypoxemic Resp Failure secondary to shows R --> L shunting through atrium c/w PFO or ASD as per 2D echo report 2. S/p UTI 3. VDRF 4. ESRD on HD 5. Diarrhea, on empiric Flagyl Plan: Remains unchanged, continue Flagyl, repeat cultures prn, follow pulmonary and cardiology recommendations Discussed with staff Problems: Consultation Date/Type/Reason Admit Date/Time Jan 07, 2017 at 12:43 Initial Consult Date 01/08/17 Type of Consultation: id Referring Provider: YAYO EDGAR DO Exam/Review of Systems Vital Signs Vitals Vital Signs Date Time Temp Pulse Resp B/P Pulse Ox O2 Delivery O2 Flow Rate FiO2 01/23/17 08:15 88 27 97/67 94 Mechanical Ventilator 01/23/17 08:00 100 01/23/17 04:00 98.4 Intake and Output 01/22/17 01/22/17 01/23/17 15:00 23:00 07:00 Intake Total 871.22 ml 574.96 ml 424.96 ml Balance 871.22 ml 574.96 ml 424.96 ml Results Result Diagram: 01/23/17 0400 01/23/17 0400 Results 24 hrs Laboratory Tests Test 01/22/17 17:15 01/22/17 23:40 01/23/17 04:00 01/23/17 05:37 Bedside Glucose 108 110 170 White Blood Count 15.9 #H Red Blood Count 3.08 L Hemoglobin 8.8 L Hematocrit 27.9 L Mean Corpuscular Volume 90.6 Mean Corpuscular Hemoglobin 28.6 L Mean Corpuscular Hemoglobin Concent 31.5 L Red Cell Distribution Width 18.8 H Platelet Count 140 Mean Platelet Volume 12.1 H Neutrophils % 78.5 H Lymphocytes % 12.2 L Monocytes % 7.0 Eosinophils % 1.5 Basophils % 0.2 Nucleated Red Blood Cells % 0.0 Neutrophils # 12.4 H Lymphocytes # 1.9 Monocytes # 1.1 H Eosinophils # 0.2 Basophils # 0.0 Nucleated Red Blood Cells # 0.0 Sodium Level 139 Potassium Level 5.6 H Chloride Level 96 L Carbon Dioxide Level 20 L Anion Gap 29 H Blood Urea Nitrogen 85 #H Creatinine 2.49 H Glucose Level 93 Calcium Level 9.1 Phosphorus Level 4.2 Magnesium Level 1.8 Total Bilirubin 0.2 Direct Bilirubin 0.00 Indirect Bilirubin 0.2 Aspartate Amino Transf (AST/SGOT) 22 Alanine Aminotransferase (ALT/SGPT) 21 Alkaline Phosphatase 84 Total Protein 8.1 Albumin 3.9 Globulin 4.20 H Albumin/Globulin Ratio 0.92 Test 01/23/17 05:38 01/23/17 06:34 01/23/17 11:41 Bedside Glucose 151 117 98 Medications Medications Current Medications Acetaminophen (Tylenol Liquid) 650 mg Q4H PRN GTB PAIN OR TEMP ABOVE 38C Last administered on 01/23/17 04:56; Admin Dose 650 MG; Start 01/07/17 at 13:00 Diphenhydramine HCl (Benadryl) 25 mg Q6H PRN GTB ITCHING Last administered on 00:23; Admin Dose 25 MG; Start 01/07/17 at 13:00 Multivit/Ca Carb/ B Cmplx/FA/Prenat (Macrina-Brigitte) 1 tab DAILY GTB Last administered on 01/23/17 08:17; Admin Dose 1 TAB; Start 01/08/17 at 09:00 Ondansetron HCl (Zofran Tab) 4 mg Q4H PRN GTB NAUSEA AND/OR VOMITING Last administered on 01/15/17 05:07; Admin Dose 4 MG; Start 01/07/17 at 13:00 Miscellaneous Information 1 ea NOTE XX ; Start 01/07/17 at 23:45 Glucose (Glutose) 15 gm Q15M PRN PO DECREASED GLUCOSE; Start 01/07/17 at 23:45 Glucose (Glutose) 22.5 gm Q15M PRN PO DECREASED GLUCOSE; Start 01/07/17 at 23:45 Dextrose (D50w Syringe) 25 ml Q15M PRN IV DECREASED GLUCOSE; Start 01/07/17 at 23:45 Dextrose (D50w Syringe) 50 ml Q15M PRN IV DECREASED GLUCOSE; Start 01/07/17 at 23:45 Glucagon (Glucagen) 1 mg Q15M PRN IM DECREASED GLUCOSE; Start 01/07/17 at 23:45 Glucose (Glutose) 15 gm Q15M PRN BUCCAL DECREASED GLUCOSE; Start 01/07/17 at 23: 45 Miscellaneous Information (Pending Santyl Order For Wound Care) This patient lopez... PRN PRN XX WOUND CARE; Start 01/08/17 at 07:30 Insulin Aspart (Novolog Insulin Pen) NOVOLOG *MILD* ALGORI... Q6 SC Last administered on 01/18/17 11:59; Admin Dose 1 UNIT; Start 01/08/17 at 12:00 Heparin Sodium (Porcine) (Heparin (5000 Units/0.5 ml)) 5,000 unit BID SC Last administered on 01/23/17 08:18; Admin Dose 5,000 UNIT; Start 01/10/17 at 21:00 Lorazepam 1 mg 1 mg Q6H PRN PO Agitation Last administered on 01/19/17 08:10; Admin Dose 1 MG; Start 01/10/17 at 13:30; Status Future Hold Midazolam HCl (Versed) 50 ml @ 1 mls/hr TITRATE IV ; Start 01/11/17 at 11:00 Escitalopram Oxalate 10 mg 10 mg DAILY GTB Last administered on 01/23/17 08:17 ; Admin Dose 10 MG; Start 01/13/17 at 09:00 Norepinephrine/ Dextrose (Levophed/D5W) 500 ml @ 1.87 mls/hr TITRATE IV Last administered on 01/21/17 12:35; Admin Dose 18.75 MLS/HR; Start 01/15/17 at 23:45 Midodrine (Proamatine) 10 mg BID@09,17 NGT Last administered on 01/23/17 09:32 ; Admin Dose 10 MG; Start 01/18/17 at 09:00 Oxycodone HCl (Roxicodone) 5 mg Q4H PRN PO PAIN Last administered on 01/23/17t 04:59; Admin Dose 5 MG; Start 01/18/17 at 12:00 IV Flush (NS 10 ml) 10 ml PRN PRN IV IV PROTOCOL; Start 01/19/17 at 17:00 AI FUNEZ NP Jan 23, 2017 12:19
--- NOTE | 2017-01-23 12:56 | CONS ---
Date/Time of Note Date/Time of Note DATE: 01/23/17 TIME: 12:53 Consult Date/Type/Reason Admit Date/Time Jan 07, 2017 at 12:43 Initial Consult Date 01/08/17 Type of Consultation: Pulmonary ICU Ordering Provider: YAYO EDGAR DO Subjective Patchy infiltrates with interstitial edema on chest x-ray Still requiring FiO2 of 100% 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ly unchanged Objective Vital Signs Date Time Temp Pulse Resp B/P Pulse Ox O2 Delivery O2 Flow Rate FiO2 01/23/17 12:15 87 23 124/73 93 01/23/17 11:00 Mechanical Ventilator 01/23/17 08:00 100 01/23/17 04:00 98.4 Intake and Output 01/22/17 01/22/17 01/23/17 15:00 23:00 07:00 Intake Total 871.22 ml 574.96 ml 424.96 ml Balance 871.22 ml 574.96 ml 424.96 ml Exam GENERAL: sedated on mechanical ventilation opens eyes to questions. VITAL SIGNS: per chart NECK: Supple. No JVD or lymphadenopathy. CARDIAC EXAM: S1, S2. No added sounds or murmurs. CHEST: clear bilaterally, No added sounds, rales or wheezes ABDOMEN: Diminished air entry bilaterally no rales wheezes EXTREMITIES: No cyanosis, clubbing or edema. NEUROLOGIC: Generalized weakness. No focal deficits. Results/Medications Result Diagram: 01/23/17 0400 01/23/17 0400 Results 24 hrs Laboratory Tests Test 01/22/17 17:15 01/22/17 23:40 01/23/17 04:00 01/23/17 05:37 Bedside Glucose 108 110 170 White Blood Count 15.9 #H Red Blood Count 3.08 L Hemoglobin 8.8 L Hematocrit 27.9 L Mean Corpuscular Volume 90.6 Mean Corpuscular Hemoglobin 28.6 L Mean Corpuscular Hemoglobin Concent 31.5 L Red Cell Distribution Width 18.8 H Platelet Count 140 Mean Platelet Volume 12.1 H Neutrophils % 78.5 H Lymphocytes % 12.2 L Monocytes % 7.0 Eosinophils % 1.5 Basophils % 0.2 Nucleated Red Blood Cells % 0.0 Neutrophils # 12.4 H Lymphocytes # 1.9 Monocytes # 1.1 H Eosinophils # 0.2 Basophils # 0.0 Nucleated Red Blood Cells # 0.0 Sodium Level 139 Potassium Level 5.6 H Chloride Level 96 L Carbon Dioxide Level 20 L Anion Gap 29 H Blood Urea Nitrogen 85 #H Creatinine 2.49 H Glucose Level 93 Calcium Level 9.1 Phosphorus Level 4.2 Magnesium Level 1.8 Total Bilirubin 0.2 Direct Bilirubin 0.00 Indirect Bilirubin 0.2 Aspartate Amino Transf (AST/SGOT) 22 Alanine Aminotransferase (ALT/SGPT) 21 Alkaline Phosphatase 84 Total Protein 8.1 Albumin 3.9 Globulin 4.20 H Albumin/Globulin Ratio 0.92 Test 01/23/17 05:38 01/23/17 06:34 01/23/17 11:41 Bedside Glucose 151 117 98 Medications Current Medications Acetaminophen (Tylenol Liquid) 650 mg Q4H PRN GTB PAIN OR TEMP ABOVE 38C Last administered on 01/23/17 04:56; Admin Dose 650 MG; Start 01/07/17 at 13:00 Diphenhydramine HCl (Benadryl) 25 mg Q6H PRN GTB ITCHING Last administered on 00:23; Admin Dose 25 MG; Start 01/07/17 at 13:00 Multivit/Ca Carb/ B Cmplx/FA/Prenat (Macrina-Brigitte) 1 tab DAILY GTB Last administered on 01/23/17 08:17; Admin Dose 1 TAB; Start 01/08/17 at 09:00 Ondansetron HCl (Zofran Tab) 4 mg Q4H PRN GTB NAUSEA AND/OR VOMITING Last administered on 01/15/17 05:07; Admin Dose 4 MG; Start 01/07/17 at 13:00 Miscellaneous Information 1 ea NOTE XX ; Start 01/07/17 at 23:45 Glucose (Glutose) 15 gm Q15M PRN PO DECREASED GLUCOSE; Start 01/07/17 at 23:45 Glucose (Glutose) 22.5 gm Q15M PRN PO DECREASED GLUCOSE; Start 01/07/17 at 23:45 Dextrose (D50w Syringe) 25 ml Q15M PRN IV DECREASED GLUCOSE; Start 01/07/17 at 23:45 Dextrose (D50w Syringe) 50 ml Q15M PRN IV DECREASED GLUCOSE; Start 01/07/17 at 23:45 Glucagon (Glucagen) 1 mg Q15M PRN IM DECREASED GLUCOSE; Start 01/07/17 at 23:45 Glucose (Glutose) 15 gm Q15M PRN BUCCAL DECREASED GLUCOSE; Start 01/07/17 at 23: 45 Miscellaneous Information (Pending Santyl Order For Wound Care) This patient lopez... PRN PRN XX WOUND CARE; Start 01/08/17 at 07:30 Insulin Aspart (Novolog Insulin Pen) NOVOLOG *MILD* ALGORI... Q6 SC Last administered on 01/18/17 11:59; Admin Dose 1 UNIT; Start 01/08/17 at 12:00 Heparin Sodium (Porcine) (Heparin (5000 Units/0.5 ml)) 5,000 unit BID SC Last administered on 01/23/17 08:18; Admin Dose 5,000 UNIT; Start 01/10/17 at 21:00 Lorazepam 1 mg 1 mg Q6H PRN PO Agitation Last administered on 01/19/17 08:10; Admin Dose 1 MG; Start 01/10/17 at 13:30; Status Future Hold Midazolam HCl (Versed) 50 ml @ 1 mls/hr TITRATE IV ; Start 01/11/17 at 11:00 Escitalopram Oxalate 10 mg 10 mg DAILY GTB Last administered on 01/23/17 08:17 ; Admin Dose 10 MG; Start 01/13/17 at 09:00 Norepinephrine/ Dextrose (Levophed/D5W) 500 ml @ 1.87 mls/hr TITRATE IV Last administered on 01/21/17 12:35; Admin Dose 18.75 MLS/HR; Start 01/15/17 at 23:45 Midodrine (Proamatine) 10 mg BID@09,17 NGT Last administered on 01/23/17 09:32 ; Admin Dose 10 MG; Start 01/18/17 at 09:00 Oxycodone HCl (Roxicodone) 5 mg Q4H PRN PO PAIN Last administered on 01/23/17 04:59; Admin Dose 5 MG; Start 01/18/17 at 12:00 IV Flush (NS 10 ml) 10 ml PRN PRN IV IV PROTOCOL; Start 01/19/17 at 17:00 Metronidazole (Flagyl) 500 mg Q8 NGT ; Start 01/23/17 at 14:00 Assessment/Plan Chief Complaint/Hosp Course 1 IMP: 1. Acute on chronic hypoxemic respiratory failure possible component of worsening volume overload in addition to pneumonia. Questionable aspergillus infection given thick mucoid secretions. IgE less than 200. Not consistent with ABPA. Will await coccidiomycosis serology 2. UTI 3. VDRF 4. ESRD on HD status post hemodialysis 5. Anemia likely secondary to underlying renal disease 6. Shock likely combination of sepsis and hypovolemia RECS: 1. Decrease FiO2 and PEEP as tolerated. 2. Continue pulmonary toilet, will consider bronchoscopy if still having problems with secretions. Discussed with patient's daughter at bedside need for bronchoscopy. We will continue to monitor at presents with such high FiO2 requirements and need for vasopressors patient is not stable for bronchoscopy. 3. Continue hemodialysis with volume removal 4. continue antibiotics per ID, check IgE and aspergillus precipitants results were pending, coccidiomycosis pending 5. continue Mucomyst 6. Continue pain control and medications for anxiety. 7. Decrease Levophed as tolerated. Goal for map of 90. Critical care time 40 minutes Problems: RHONDA BUENROSTRO MD, [facility] Jan 23, 2017 12:55
[2017-01-23] MEDS: ONDANSETRON 4 MG TAB GTB PRN (13:25)
[2017-01-23] MEDS: metroNIDAZOLE 500 MG TAB NGT SCH ×2 (14:11→21:07)
--- NOTE | 2017-01-23 16:29 | PN ---
Date/Time of Note Date/Time of Note DATE: 01/23/17 TIME: 16:27 Assessment/Plan VTE Prophylaxis VTE Prophylaxis Intervention: other Lines/Catheters IV Catheter Type (from Nrsg): PICC Line Central line still needed: Yes Urinary Cath still in place: No Reason Cath still needed: other (indicate) Assessment/Plan Chief Complaint/Hosp Course A/P: 1. acute on chronic hypoxemic hypercapnic respiratory failure: s/p trach: vent dep. still with severe hypoxemia 2. Pafib; currently remains in NSR: off of amiodarone now 3. HX Sick sinus syndrome: s/p PPM: pacemaker was interrogated and personally reviewed on 01/08/17 with normal functioning pacemaker. 4. pneumonia 5. ESRD on HD 6. HX HTN: stable now 7. severe anemia: s/p multiple transfusion 8. severe hypoxemia 9. SHOCK: improved and currently off of levophed drip. cont vent support not anticoagulated due to concerns about bleeding and severe anemia. abx as per IM/ ID and pulm team CONT HD HR has remained stable. Will monitor on tele correct lytes prn transfusion prn Off of AMIODARONE due to severe hypoxemia, specially since pt has remained in NSR. cont ICU care WILL repeat echo and do bubble study to evaluate for shunting. more than 37 minutes of critical care time was spent in management and treatment of this critically ill pt, excluding any procedures. Problems: Subjective 24 Hr Interval Summary Free Text/Dictation CARDIOLOGY FOLLOW UP PROGRESS NOTE/ ICU NOTE: SUBJECTIVE: d/w staff and rhythm was reviewed. pt remains in NSR. no afib noted. pt still with severe hypoxemia and requiring 100% O2 NOW pt is still s/p trach on vent in ICU but was able to be weaned off of levophed drip. pt with no chest pain. OBJECTIVE. General: s/p trach on vent. in no distress HEENT: NC/AT. pupils are equal. round. NECK: s/p trach. no stridor. CV: RRR. systolic murmur; no gallop or rubs. PULM: no wheezing but + rhonchi anteriorly diffusely GI: SOFT, NT, ND, no rebound or guarding . s/p PEG Extremity: trace B/L LE edema. no clubbing. neuro: awake and alert responds appropriately Psych: calm, pleasant rectal: deferred Derm: + echymosis chest: s/p R mastectomy and HD ACCESS in place. Exam/Review of Systems Vital Signs Vitals Vital Signs Date Time Temp Pulse Resp B/P Pulse Ox O2 Delivery O2 Flow Rate FiO2 01/23/17 12:15 87 23 124/73 93 01/23/17 11:00 Mechanical Ventilator 01/23/17 08:00 100 01/23/17 04:00 98.4 Intake and Output 01/22/17 01/22/17 01/23/17 15:00 23:00 07:00 Intake Total 871.22 ml 574.96 ml 424.96 ml Balance 871.22 ml 574.96 ml 424.96 ml Results Result Diagram: 01/23/17 0400 01/23/17 0400 Results 24 hrs Laboratory Tests Test 01/22/17 17:15 01/22/17 23:40 01/23/17 04:00 01/23/17 05:37 Bedside Glucose 108 110 170 White Blood Count 15.9 #H Red Blood Count 3.08 L Hemoglobin 8.8 L Hematocrit 27.9 L Mean Corpuscular Volume 90.6 Mean Corpuscular Hemoglobin 28.6 L Mean Corpuscular Hemoglobin Concent 31.5 L Red Cell Distribution Width 18.8 H Platelet Count 140 Mean Platelet Volume 12.1 H Neutrophils % 78.5 H Lymphocytes % 12.2 L Monocytes % 7.0 Eosinophils % 1.5 Basophils % 0.2 Nucleated Red Blood Cells % 0.0 Neutrophils # 12.4 H Lymphocytes # 1.9 Monocytes # 1.1 H Eosinophils # 0.2 Basophils # 0.0 Nucleated Red Blood Cells # 0.0 Sodium Level 139 Potassium Level 5.6 H Chloride Level 96 L Carbon Dioxide Level 20 L Anion Gap 29 H Blood Urea Nitrogen 85 #H Creatinine 2.49 H Glucose Level 93 Calcium Level 9.1 Phosphorus Level 4.2 Magnesium Level 1.8 Total Bilirubin 0.2 Direct Bilirubin 0.00 Indirect Bilirubin 0.2 Aspartate Amino Transf (AST/SGOT) 22 Alanine Aminotransferase (ALT/SGPT) 21 Alkaline Phosphatase 84 Total Protein 8.1 Albumin 3.9 Globulin 4.20 H Albumin/Globulin Ratio 0.92 Test 01/23/17 05:38 01/23/17 06:34 01/23/17 11:41 Bedside Glucose 151 117 98 Medications Medications Current Medications Acetaminophen (Tylenol Liquid) 650 mg Q4H PRN GTB PAIN OR TEMP ABOVE 38C Last administered on 01/23/17 04:56; Admin Dose 650 MG; Start 01/07/17 at 13:00 Diphenhydramine HCl (Benadryl) 25 mg Q6H PRN GTB ITCHING Last administered on 13:25; Admin Dose 25 MG; Start 01/07/17 at 13:00 Multivit/Ca Carb/ B Cmplx/FA/Prenat (Macrina-Brigitte) 1 tab DAILY GTB Last administered on 01/23/17 08:17; Admin Dose 1 TAB; Start 01/08/17 at 09:00 Ondansetron HCl (Zofran Tab) 4 mg Q4H PRN GTB NAUSEA AND/OR VOMITING Last administered on 01/23/17 13:25; Admin Dose 4 MG; Start 01/07/17 at 13:00 Miscellaneous Information 1 ea NOTE XX ; Start 01/07/17 at 23:45 Glucose (Glutose) 15 gm Q15M PRN PO DECREASED GLUCOSE; Start 01/07/17 at 23:45 Glucose (Glutose) 22.5 gm Q15M PRN PO DECREASED GLUCOSE; Start 01/07/17 at 23:45 Dextrose (D50w Syringe) 25 ml Q15M PRN IV DECREASED GLUCOSE; Start 01/07/17 at 23:45 Dextrose (D50w Syringe) 50 ml Q15M PRN IV DECREASED GLUCOSE; Start 01/07/17 at 23:45 Glucagon (Glucagen) 1 mg Q15M PRN IM DECREASED GLUCOSE; Start 01/07/17 at 23:45 Glucose (Glutose) 15 gm Q15M PRN BUCCAL DECREASED GLUCOSE; Start 01/07/17 at 23: 45 Miscellaneous Information (Pending [facility] Order For Wound Care) This patient lopez... PRN PRN XX WOUND CARE; Start 01/08/17 at 07:30 Insulin Aspart (Novolog Insulin Pen) NOVOLOG *MILD* ALGORI... Q6 SC Last administered on 01/18/17 11:59; Admin Dose 1 UNIT; Start 01/08/17 at 12:00 Heparin Sodium (Porcine) (Heparin (5000 Units/0.5 ml)) 5,000 unit BID SC Last administered on 01/23/17 08:18; Admin Dose 5,000 UNIT; Start 01/10/17 at 21:00 Lorazepam 1 mg 1 mg Q6H PRN PO Agitation Last administered on 01/19/17 08:10; Admin Dose 1 MG; Start 01/10/17 at 13:30; Status Future Hold Midazolam HCl (Versed) 50 ml @ 1 mls/hr TITRATE IV ; Start 01/11/17 at 11:00 Escitalopram Oxalate 10 mg 10 mg DAILY GTB Last administered on 01/23/17 08:17 ; Admin Dose 10 MG; Start 01/13/17 at 09:00 Norepinephrine/ Dextrose (Levophed/D5W) 500 ml @ 1.87 mls/hr TITRATE IV Last administered on 01/23/17 16:18; Admin Dose 9.37 MLS/HR; Start 01/15/17 at 23:45 Midodrine (Proamatine) 10 mg BID@,17 NGT Last administered on 01/23/17 16:19 ; Admin Dose 10 MG; Start 01/18/17 at 09:00 Oxycodone HCl (Roxicodone) 5 mg Q4H PRN PO PAIN Last administered on 01/23/17 04:59; Admin Dose 5 MG; Start 01/18/17 at 12:00 IV Flush (NS 10 ml) 10 ml PRN PRN IV IV PROTOCOL; Start 01/19/17 at 17:00 Metronidazole (Flagyl) 500 mg Q8 NGT Last administered on 01/23/17 14:11; Admin Dose 500 MG; Start 01/23/17 at 14:00 KIAH GARCIA MD Jan 23, 2017 16:28
[2017-01-23] MEDS ORDERED: HEPARIN 1000 UNITS/ML 10 ML INJ ONE (17:46)
[2017-01-23] MEDS ORDERED: HEPARIN 1000 UNITS/ML 10 ML INJ CATHETER SCH (18:00)
[2017-01-24] VITALS (75 sets, daily range): BP systolic 61–132; BP diastolic 47–82; PULSE 72–113; RESP 10–49
[2017-01-24] MEDS: ALBUTEROL 18 GM INHALER INH SCH ×4 (01:24→20:04)
[2017-01-24] MEDS: IPRATROPIUM (HFA) 12.9 GM INHALER INH SCH ×4 (01:24→20:04)
[2017-01-24] MEDS: ACETYLCYSTEINE 20% 4 ML VIAL NEB SCH ×3 (01:25→15:04)
[2017-01-24 04:52] LABS: ADD SCAN DIFF NO
[2017-01-24 04:55] LABS: BASOPHILS % 0.2 % (0.0-2.0); EOSINOPHILS # 0.2 10^3/ul (0.0-0.5); EOSINOPHILS % 1.4 % (0.0-7.0); LYMPHOCYTES # 1.3 10^3/ul (0.8-2.9); LYMPHOCYTES % 10.3 % (15.0-51.0); MEAN CORPUSCULAR HEMOGLOBIN 28.2 pg (29.0-33.0); MEAN CORPUSCULAR VOLUME 90.9 fl (82.0-101.0); MEAN PLATELET VOLUME 12.7 fl (7.4-10.4); MONOCYTES % 8.2 % (0.0-11.0); NEUTROPHIL # 10.1 10^3/ul (1.6-7.5); NEUTROPHILS % 79.5 % (39.0-77.0); PLATELET COUNT 140 10^3/UL (140-415); RED BLOOD COUNT 3.19 10^6/ul (4.20-5.40); RED CELL DISTRIBUTION WIDTH 18.7 % (11.5-14.5); WHITE BLOOD COUNT 12.7 10^3/ul (4.8-10.8)
[2017-01-24 05:17] LABS: CALCIUM 9.5 mg/dl (8.4-10.2); CREATININE 1.9 mg/dl (0.44-1.00); MAGNESIUM 1.9 mg/dl (1.7-2.5); PHOSPHORUS 5.1 mg/dl (2.5-4.9); POTASSIUM 3.9 mmol/L (3.5-5.1)
[2017-01-24] MEDS: metroNIDAZOLE 500 MG TAB NGT SCH ×3 (05:31→20:47)
[2017-01-24] MEDS: INSULIN ASPART [NOVOLOG] 3 ML PEN SC SCH ×3 (05:34→17:21)
--- NOTE | 2017-01-24 07:20 | PN ---
Date/Time of Note Date/Time of Note DATE: 01/24/17 TIME: 07:17 Assessment/Plan VTE Prophylaxis VTE Prophylaxis Intervention: other Lines/Catheters IV Catheter Type (from Nrs): PICC Line Central line still needed: Yes Urinary Cath still in place: No Reason Cath still needed: other (indicate) Assessment/Plan Chief Complaint/Hosp Course A/P: 1. acute on chronic hypoxemic hypercapnic respiratory failure: s/p trach: vent dep. still with severe hypoxemia. currently on 100% O2 and difficult to oxygenate. 2. Pafib; currently remains in NSR: off of amiodarone now 3. HX Sick sinus syndrome: s/p PPM: pacemaker was interrogated and personally reviewed on 01/08/17 with normal functioning pacemaker. 4. pneumonia 5. ESRD on HD 6. HX HTN: stable now 7. severe anemia: s/p multiple transfusion 8. severe hypoxemia 9. SHOCK: septic shock and still on levophed drip cont vent support not anticoagulated due to concerns about bleeding and severe anemia. abx as per IM/ ID and pulm team CONT aggressive HD HR has remained stable. Will monitor on tele correct lytes prn transfusion prn Off of AMIODARONE due to severe hypoxemia, specially since pt has remained in NSR. cont ICU care WILL repeat echo and do bubble study today to evaluate for shunting. more than 39 minutes of critical care time was spent in management and treatment of this critically ill pt, excluding any procedures. Problems: Subjective 24 Hr Interval Summary Free Text/Dictation CARDIOLOGY FOLLOW UP PROGRESS NOTE/ ICU NOTE: SUBJECTIVE: d/w staff and rhythm was reviewed. pt remains in NSR. no afib noted. pt still with severe hypoxemia and requiring 100% O2 NOW despite getting HD yesterday pt is still s/p trach on vent in ICU but was able to be weaned off of levophed drip. pt with no chest pain. d/w daughter yesterday extensively and multiple questions were answered. OBJECTIVE. General: s/p trach on vent. in no distress HEENT: NC/AT. pupils are equal. round. NECK: s/p trach. no stridor. CV: RRR. systolic murmur; no gallop or rubs. PULM: no wheezing but + rhonchi anteriorly diffusely GI: SOFT, NT, ND, no rebound or guarding . s/p PEG Extremity: trace B/L LE edema. no clubbing. neuro: awake and alert responds appropriately Psych: calm, pleasant rectal: deferred Derm: + echymosis chest: s/p R mastectomy and HD ACCESS in place. Exam/Review of Systems Vital Signs Vitals Vital Signs Date Time Temp Pulse Resp B/P Pulse Ox O2 Delivery O2 Flow Rate FiO2 01/24/17 06:00 77 17 91/55 100 Mechanical Ventilator 01/24/17 05:32 100 01/23/17 20:00 98.5 Intake and Output 01/23/17 01/23/17 01/24/17 15:00 23:00 07:00 Intake Total 74.96 ml 931.24 ml 238.75 ml Output Total 4000 ml Balance 74.96 ml -3068.76 ml 238.75 ml Results Result Diagram: 01/24/17 0400 01/24/17 0400 Results 24 hrs Laboratory Tests Test 01/23/17 11:41 01/23/17 16:46 01/23/17 23:32 01/24/17 04:00 Bedside Glucose 98 82 78 White Blood Count 12.7 #H Red Blood Count 3.19 L Hemoglobin 9.0 L Hematocrit 29.0 L Mean Corpuscular Volume 90.9 Mean Corpuscular Hemoglobin 28.2 L Mean Corpuscular Hemoglobin Concent 31.0 L Red Cell Distribution Width 18.7 H Platelet Count 140 Mean Platelet Volume 12.7 H Neutrophils % 79.5 H Lymphocytes % 10.3 L Monocytes % 8.2 Eosinophils % 1.4 Basophils % 0.2 Nucleated Red Blood Cells % 0.0 Neutrophils # 10.1 H Lymphocytes # 1.3 Monocytes # 1.0 H Eosinophils # 0.2 Basophils # 0.0 Nucleated Red Blood Cells # 0.0 Sodium Level 145 H Potassium Level 3.9 Chloride Level 99 Carbon Dioxide Level 22 Anion Gap 28 H Blood Urea Nitrogen 57 H Creatinine 1.90 H Glucose Level 90 Calcium Level 9.5 Phosphorus Level 5.1 H Magnesium Level 1.9 Test 01/24/17 05:32 Bedside Glucose 89 Medications Medications Current Medications Acetaminophen (Tylenol Liquid) 650 mg Q4H PRN GTB PAIN OR TEMP ABOVE 38C Last administered on 01/23/17t 04:56; Admin Dose 650 MG; Start 01/07/17 at 13:00 Diphenhydramine HCl (Benadryl) 25 mg Q6H PRN GTB ITCHING Last administered on 13:25; Admin Dose 25 MG; Start 01/07/17 at 13:00 Multivit/Ca Carb/ B Cmplx/FA/Prenat (Macrina-Brigitte) 1 tab DAILY GTB Last administered on 01/23/17 08:17; Admin Dose 1 TAB; Start 01/08/17 at 09:00 Ondansetron HCl (Zofran Tab) 4 mg Q4H PRN GTB NAUSEA AND/OR VOMITING Last administered on 01/23/17 13:25; Admin Dose 4 MG; Start 01/07/17 at 13:00 Miscellaneous Information 1 ea NOTE XX ; Start 01/07/17 at 23:45 Glucose (Glutose) 15 gm Q15M PRN PO DECREASED GLUCOSE; Start 01/07/17 at 23:45 Glucose (Glutose) 22.5 gm Q15M PRN PO DECREASED GLUCOSE; Start 01/07/17 at 23:45 Dextrose (D50w Syringe) 25 ml Q15M PRN IV DECREASED GLUCOSE; Start 01/07/17 at 23:45 Dextrose (D50w Syringe) 50 ml Q15M PRN IV DECREASED GLUCOSE; Start 01/07/17 at 23:45 Glucagon (Glucagen) 1 mg Q15M PRN IM DECREASED GLUCOSE; Start 01/07/17 at 23:45 Glucose (Glutose) 15 gm Q15M PRN BUCCAL DECREASED GLUCOSE; Start 01/07/17 at 23: 45 Miscellaneous Information (Pending [facility] Order For Wound Care) This patient lopez... PRN PRN XX WOUND CARE; Start 01/08/17 at 07:30 Insulin Aspart (Novolog Insulin Pen) NOVOLOG *MILD* ALGORI... Q6 SC Last administered on 01/18/17 11:59; Admin Dose 1 UNIT; Start 01/08/17 at 12:00 Heparin Sodium (Porcine) (Heparin (5000 Units/0.5 ml)) 5,000 unit BID SC Last administered on 01/23/17 21:10; Admin Dose 5,000 UNIT; Start 01/10/17 at 21:00 Lorazepam 1 mg 1 mg Q6H PRN PO Agitation Last administered on 01/19/17 08:10; Admin Dose 1 MG; Start 01/10/17 at 13:30; Status Future Hold Midazolam HCl (Versed) 50 ml @ 1 mls/hr TITRATE IV ; Start 01/11/17 at 11:00 Escitalopram Oxalate 10 mg 10 mg DAILY GTB Last administered on 01/23/17 08:17 ; Admin Dose 10 MG; Start 01/13/17 at 09:00 Norepinephrine/ Dextrose (Levophed/D5W) 500 ml @ 1.87 mls/hr TITRATE IV Last administered on 01/23/17 16:18; Admin Dose 9.37 MLS/HR; Start 01/15/17 at 23:45 Midodrine (Proamatine) 10 mg BID@09,17 NGT Last administered on 01/23/17 16:19 ; Admin Dose 10 MG; Start 01/18/17 at 09:00 Oxycodone HCl (Roxicodone) 5 mg Q4H PRN PO PAIN Last administered on 01/23/17 04:59; Admin Dose 5 MG; Start 01/18/17 at 12:00 IV Flush (NS 10 ml) 10 ml PRN PRN IV IV PROTOCOL; Start 01/19/17 at 17:00 Metronidazole (Flagyl) 500 mg Q8 NGT Last administered on 01/24/17 05:31; Admin Dose 500 MG; Start 01/23/17 at 14:00 KIAH GARCIA MD Jan 24, 2017 07:20
--- NOTE | 2017-01-24 07:35 | PN ---
Date/Time of Note Date/Time of Note DATE: 01/24/17 TIME: 07:31 Assessment/Plan Lines/Catheters IV C[facility]ter Type (from [facility]): PICC Line Urinary Cath still in place: No Assessment/Plan Chief Complaint/Hosp Course 1. hypoxemic respiratory failure. etiology likely multifactorial, chf, ? pna,, ? Anxiety -CT angios showed interstitial edema pulmonary edema, no evidence of PE -cxr shows no significant FiO2 remains high plan -Continue volume removal with dialysis as hemodynamically tolerated -Consider bronchoscopy -Follow-up with pulmonary -Monitor 2. septic shock Secondary to UTI, pneumonia. Will check a.m. cortisol level to rule out a possible adrenal insufficiency -Cultures have been reviewed -Patient on pressor support, broad-spectrum antibiotics/antifungal -Wean off pressors slowly Follow-up with infectious disease 3. Encephalopathy, acute. Etiology is likely secondary to toxic metabolic -Mental status appears to be improving continue to monitor 4. Dysphagia, status post percutaneous endoscopic gastrostomy. -Continue tube feeding. 5. ESRD -HD tomorrow 7. Atrial fibrillation, currently rate controlled. Continue medical management. -Off anticoagulation secondary to previous bleed - Continue beta louise. We will follow up with cardiology. 8. Anemia. Continue to monitor hemoglobin and hematocrit levels. Continue Epogen 9. Mineral bone disease. Continue to monitor calcium and phosphorus levels. 10. History of breast cancer status post bilateral mastectomy. 11. Congestive heart failure. Continue medical management. 12. Diabetes. Continue Accu-Cheks and sliding scale. 13. History of Clostridium difficile colitis, status post treatment. 14. Gastrointestinal and deep venous thrombosis prophylaxis. Continue Protonix , SCD, heparin 15. Hypernatremia -Monitor 16. Anxiety disorder. cont Lexapro 17. Hypokalemia. Monitor and replete potassium chloride as needed Please note I spent over 35 minutes critical care time with this patient Problems: Subjective 24 Hr Interval Summary Free Text/Dictation Patient remains critically on pressor support. Unable to be weaned off Patient remains on high levels of FiO2 Patient had hemodialysis yesterday with approximately 3 L removed Exam/Review of Systems Vital Signs Vitals Vital Signs Date Time Temp Pulse Resp B/P Pulse Ox O2 Delivery O2 Flow Rate FiO2 01/24/17 06:00 77 17 91/55 100 Mechanical Ventilator 01/24/17 05:32 100 01/24/17 04:00 99.1 Intake and Output 01/23/17 01/23/17 01/24/17 15:00 23:00 07:00 Intake Total 74.96 ml 931.24 ml 238.75 ml Output Total 4000 ml Balance 74.96 ml -3068.76 ml 238.75 ml Exam HEENT: Head is normocephalic. NECK: Supple. HEART: Irregular LUNGS: Show diminished breath sounds at base. ABDOMEN: Soft, nontender to palpation without rebound or guarding. EXTREMITIES: Negative for clubbing, cyanosis. DERMATOLOGIC: No rashes. MUSCULOSKELETAL: No joint effusions, NEUROLOGIC: No change in exam. Results Result Diagram: 01/24/17 0400 01/24/17 0400 Results 24 hrs Laboratory Tests Test 01/23/17 11:41 01/23/17 16:46 01/23/17 23:32 01/24/17 04:00 Bedside Glucose 98 82 78 White Blood Count 12.7 #H Red Blood Count 3.19 L Hemoglobin 9.0 L Hematocrit 29.0 L Mean Corpuscular Volume 90.9 Mean Corpuscular Hemoglobin 28.2 L Mean Corpuscular Hemoglobin Concent 31.0 L Red Cell Distribution Width 18.7 H Platelet Count 140 Mean Platelet Volume 12.7 H Neutrophils % 79.5 H Lymphocytes % 10.3 L Monocytes % 8.2 Eosinophils % 1.4 Basophils % 0.2 Nucleated Red Blood Cells % 0.0 Neutrophils # 10.1 H Lymphocytes # 1.3 Monocytes # 1.0 H Eosinophils # 0.2 Basophils # 0.0 Nucleated Red Blood Cells # 0.0 Sodium Level 145 H Potassium Level 3.9 Chloride Level 99 Carbon Dioxide Level 22 Anion Gap 28 H Blood Urea Nitrogen 57 H Creatinine 1.90 H Glucose Level 90 Calcium Level 9.5 Phosphorus Level 5.1 H Magnesium Level 1.9 Test 01/24/17 05:32 Bedside Glucose 89 Medications Medications Current Medications Acetaminophen (Tylenol Liquid) 650 mg Q4H PRN GTB PAIN OR TEMP ABOVE 38C Last administered on 01/23/17 04:56; Admin Dose 650 MG; Start 01/07/17 at 13:00 Diphenhydramine HCl (Benadryl) 25 mg Q6H PRN GTB ITCHING Last administered on 13:25; Admin Dose 25 MG; Start 01/07/17 at 13:00 Multivit/Ca Carb/ B Cmplx/FA/Prenat (Macrina-Brigitte) 1 tab DAILY GTB Last administered on 01/23/17 08:17; Admin Dose 1 TAB; Start 01/08/17 at 09:00 Ondansetron HCl (Zofran Tab) 4 mg Q4H PRN GTB NAUSEA AND/OR VOMITING Last administered on 01/23/17 13:25; Admin Dose 4 MG; Start 01/07/17 at 13:00 Miscellaneous Information 1 ea NOTE XX ; Start 01/07/17 at 23:45 Glucose (Glutose) 15 gm Q15M PRN PO DECREASED GLUCOSE; Start 01/07/17 at 23:45 Glucose (Glutose) 22.5 gm Q15M PRN PO DECREASED GLUCOSE; Start 01/07/17 at 23:45 Dextrose (D50w Syringe) 25 ml Q15M PRN IV DECREASED GLUCOSE; Start 01/07/17 at 23:45 Dextrose (D50w Syringe) 50 ml Q15M PRN IV DECREASED GLUCOSE; Start 01/07/17 at 23:45 Glucagon (Glucagen) 1 mg Q15M PRN IM DECREASED GLUCOSE; Start 01/07/17 at 23:45 Glucose (Glutose) 15 gm Q15M PRN BUCCAL DECREASED GLUCOSE; Start 01/07/17 at 23: 45 Miscellaneous Information (Pending [facility] Order For Wound Care) This patient lopez... PRN PRN XX WOUND CARE; Start 01/08/17 at 07:30 Insulin Aspart (Novolog Insulin Pen) NOVOLOG *MILD* ALGORI... Q6 SC Last administered on 01/18/17 11:59; Admin Dose 1 UNIT; Start 01/08/17 at 12:00 Heparin Sodium (Porcine) (Heparin (5000 Units/0.5 ml)) 5,000 unit BID SC Last administered on 01/23/17 21:10; Admin Dose 5,000 UNIT; Start 01/10/17 at 21:00 Lorazepam 1 mg 1 mg Q6H PRN PO Agitation Last administered on 01/19/17 08:10; Admin Dose 1 MG; Start 01/10/17 at 13:30; Status Future Hold Midazolam HCl (Versed) 50 ml @ 1 mls/hr TITRATE IV ; Start 01/11/17 at 11:00 Escitalopram Oxalate 10 mg 10 mg DAILY GTB Last administered on 01/23/17 08:17 ; Admin Dose 10 MG; Start 01/13/17 at 09:00 Norepinephrine/ Dextrose (Levophed/D5W) 500 ml @ 1.87 mls/hr TITRATE IV Last administered on 01/23/17 16:18; Admin Dose 9.37 MLS/HR; Start 01/15/17 at 23:45 Midodrine (Proamatine) 10 mg BID@09,17 NGT Last administered on 01/23/17 16:19 ; Admin Dose 10 MG; Start 01/18/17 at 09:00 Oxycodone HCl (Roxicodone) 5 mg Q4H PRN PO PAIN Last administered on 01/23/17 04:59; Admin Dose 5 MG; Start 01/18/17 at 12:00 IV Flush (NS 10 ml) 10 ml PRN PRN IV IV PROTOCOL; Start 01/19/17 at 17:00 Metronidazole (Flagyl) 500 mg Q8 NGT Last administered on 01/24/17 05:31; Admin Dose 500 MG; Start 01/23/17 at 14:00 CHARLIE BUSBY DO Jan 24, 2017 07:35
[2017-01-24] MEDS: MIDODRINE 5 MG TAB NGT SCH ×2 (08:06→17:21)
[2017-01-24] MEDS: MULTIVIT/CA CARB/B CMPLX/FA TAB GTB SCH (08:06)
[2017-01-24] MEDS: RISEDRONATE 5 MG TAB GTB SCH (08:06)
[2017-01-24] MEDS: ESCITALOPRAM 10 MG TAB GTB SCH (08:06)
[2017-01-24] MEDS: LANSOPRAZOLE 30 MG CAP GTB SCH (08:06)
[2017-01-24] MEDS: HEPARIN 5,000 UNIT/0.5 ML VIAL SC SCH ×2 (08:10→20:48)
--- NOTE | 2017-01-24 11:02 | CONS ---
Date/Time of Note Date/Time of Note DATE: 01/24/17 TIME: 10:59 Consult Date/Type/Reason Admit Date/Time Jan 07, 2017 at 12:43 Initial Consult Date 01/08/17 Type of Consultation: Pulmonary ICU Ordering Provider: YAYO EDGAR DO Subjective Patient appears more comfortable this morning. FiO2 decreased to 70%. Preliminary echocardiogram with bubble study suggests right to left shunt. Objective Vital Signs Date Time Temp Pulse Resp B/P Pulse Ox O2 Delivery O2 Flow Rate FiO2 01/24/17 09:45 76 22 87/57 Mechanical Ventilator 01/24/17 09:15 92 01/24/17 09:15 70 01/24/17 04:00 99.1 Intake and Output 01/23/17 01/23/17 01/24/17 14:59 22:59 06:59 Intake Total 74.96 ml 940.61 ml 238.75 ml Output Total 4000 ml Balance 74.96 ml -3059.39 ml 238.75 ml Exam GENERAL: Comfortable on mechanical ventilation opens eyes to questions. VITAL SIGNS: per chart NECK: Supple. No JVD or lymphadenopathy. CARDIAC EXAM: S1, S2. No added sounds or murmurs. CHEST: clear bilaterally, No added sounds, rales or wheezes ABDOMEN: Diminished air entry bilaterally no rales wheezes EXTREMITIES: No cyanosis, clubbing or edema. NEUROLOGIC: Generalized weakness. No focal deficits. Results/Medications Result Diagram: 01/24/17 0400 01/24/17 0400 Results 24 hrs Laboratory Tests Test 01/23/17 11:41 01/23/17 16:46 01/23/17 23:32 01/24/17 04:00 Bedside Glucose 98 82 78 White Blood Count 12.7 #H Red Blood Count 3.19 L Hemoglobin 9.0 L Hematocrit 29.0 L Mean Corpuscular Volume 90.9 Mean Corpuscular Hemoglobin 28.2 L Mean Corpuscular Hemoglobin Concent 31.0 L Red Cell Distribution Width 18.7 H Platelet Count 140 Mean Platelet Volume 12.7 H Neutrophils % 79.5 H Lymphocytes % 10.3 L Monocytes % 8.2 Eosinophils % 1.4 Basophils % 0.2 Nucleated Red Blood Cells % 0.0 Neutrophils # 10.1 H Lymphocytes # 1.3 Monocytes # 1.0 H Eosinophils # 0.2 Basophils # 0.0 Nucleated Red Blood Cells # 0.0 Sodium Level 145 H Potassium Level 3.9 Chloride Level 99 Carbon Dioxide Level 22 Anion Gap 28 H Blood Urea Nitrogen 57 H Creatinine 1.90 H Glucose Level 90 Calcium Level 9.5 Phosphorus Level 5.1 H Magnesium Level 1.9 Test 01/24/17 05:32 Bedside Glucose 89 Medications Current Medications Acetaminophen (Tylenol Liquid) 650 mg Q4H PRN GTB PAIN OR TEMP ABOVE 38C Last administered on 01/23/17 04:56; Admin Dose 650 MG; Start 01/07/17 at 13:00 Diphenhydramine HCl (Benadryl) 25 mg Q6H PRN GTB ITCHING Last administered on 13:25; Admin Dose 25 MG; Start 01/07/17 at 13:00 Multivit/Ca Carb/ B Cmplx/FA/Prenat (Macrina-Brigitte) 1 tab DAILY GTB Last administered on 01/24/17 08:06; Admin Dose 1 TAB; Start 01/08/17 at 09:00 Ondansetron HCl (Zofran Tab) 4 mg Q4H PRN GTB NAUSEA AND/OR VOMITING Last administered on 01/23/17 13:25; Admin Dose 4 MG; Start 01/07/17 at 13:00 Miscellaneous Information 1 ea NOTE XX ; Start 01/07/17 at 23:45 Glucose (Glutose) 15 gm Q15M PRN PO DECREASED GLUCOSE; Start 01/07/17 at 23:45 Glucose (Glutose) 22.5 gm Q15M PRN PO DECREASED GLUCOSE; Start 01/07/17 at 23:45 Dextrose (D50w Syringe) 25 ml Q15M PRN IV DECREASED GLUCOSE; Start 01/07/17 at 23:45 Dextrose (D50w Syringe) 50 ml Q15M PRN IV DECREASED GLUCOSE; Start 01/07/17 at 23:45 Glucagon (Glucagen) 1 mg Q15M PRN IM DECREASED GLUCOSE; Start 01/07/17 at 23:45 Glucose (Glutose) 15 gm Q15M PRN BUCCAL DECREASED GLUCOSE; Start 01/07/17 at 23: 45 Miscellaneous Information (Pending [facility] Order For Wound Care) This patient lopez... PRN PRN XX WOUND CARE; Start 01/08/17 at 07:30 Insulin Aspart (Novolog Insulin Pen) NOVOLOG *MILD* ALGORI... Q6 SC Last administered on 01/18/17 11:59; Admin Dose 1 UNIT; Start 01/08/17 at 12:00 Heparin Sodium (Porcine) (Heparin (5000 Units/0.5 ml)) 5,000 unit BID SC Last administered on 01/24/17 08:10; Admin Dose 5,000 UNIT; Start 01/10/17 at 21:00 Lorazepam 1 mg 1 mg Q6H PRN PO Agitation Last administered on 01/19/17 08:10; Admin Dose 1 MG; Start 01/10/17 at 13:30; Status Future Hold Midazolam HCl (Versed) 50 ml @ 1 mls/hr TITRATE IV ; Start 01/11/17 at 11:00 Escitalopram Oxalate 10 mg 10 mg DAILY GTB Last administered on 01/24/17 08:06 ; Admin Dose 10 MG; Start 01/13/17 at 09:00 Norepinephrine/ Dextrose (Levophed/D5W) 500 ml @ 1.87 mls/hr TITRATE IV Last administered on 01/23/17 16:18; Admin Dose 9.37 MLS/HR; Start 01/15/17 at 23:45 Midodrine (Proamatine) 10 mg BID@09,17 NGT Last administered on 01/24/17 08:06 ; Admin Dose 10 MG; Start 01/18/17 at 09:00 Oxycodone HCl (Roxicodone) 5 mg Q4H PRN PO PAIN Last administered on 01/23/17 04:59; Admin Dose 5 MG; Start 01/18/17 at 12:00 IV Flush (NS 10 ml) 10 ml PRN PRN IV IV PROTOCOL; Start 01/19/17 at 17:00 Metronidazole (Flagyl) 500 mg Q8 NGT Last administered on 01/24/17 05:31; Admin Dose 500 MG; Start 01/23/17 at 14:00 Assessment/Plan Chief Complaint/Hosp Course 1 IMP: 1. Acute on chronic hypoxemic respiratory failure possible component of worsening volume overload in addition to pneumonia. Questionable aspergillus infection given thick mucoid secretions. IgE less than 200. Not consistent with ABPA. Will await coccidiomycosis serology 2. UTI 3. VDRF 4. ESRD on HD status post hemodialysis 5. Anemia likely secondary to underlying renal disease 6. Shock likely combination of sepsis and hypovolemia 7. Persistent hypoxemia possibility of a intracardiac shunt given preliminary echocardiogram with bubble study. RECS: 1. Decrease FiO2 and PEEP as tolerated. 2. Continue pulmonary toilet, will consider bronchoscopy if still having problems with secretions. Discussed with patient's daughter at bedside need for bronchoscopy. We will continue to monitor at presents with such high FiO2 requirements and need for vasopressors patient is not stable for bronchoscopy. 3. Continue hemodialysis with volume removal 4. continue antibiotics per ID, check IgE and aspergillus precipitants results were pending, coccidiomycosis pending 5. continue Mucomyst 6. Continue pain control and medications for anxiety. 7. Decrease Levophed as tolerated. Goal for map of 60 8. Cardiac recommendations following echocardiogram review Critical care time 40 minutes Problems: RHONDA BUENROSTRO MD, [facility] Jan 24, 2017 11:02
--- NOTE | 2017-01-24 11:05 | RADRPT ---
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 Physician: KIAH MAYS Quality: Technically Difficult Study Procedures: Transthoracic echocardiogram with complete 2D, M-Mode, and doppler examination. Indications: Hypoxemia. 2D/M Mode Doppler Measurement Value Normal Ranges Measurement Value Normal Ranges LVIDd 2D 4.4 3.5 - 5.6 cm FLORI Vmax 1.2 cm2 LVIDs 2D 3.4 2.1 - 4.1 cm FLORI VTI 1.2 cm2 LVPWd 2D 1.2 0.6 - 1.1 cm AV Mean Prasanna 1.4 m/sec IVSd 2D 1.3 0.6 - 1.1 cm AV Mean PG 9.9 mmHg AoR Diam 2D 3.1 2.0 - 3.7 cm AV Peak Prasanna 2.4 m/sec EDV 2D 87.1 cm3 AV Peak PG 23.5 mmHg ESV 2D 40.1 cm3 AV VTI 39.8 cm LA Dimen 2D 3.8 2.3 - 4.0 cm LVOT Mean Prasanna 0.5 m/sec LVOT Diam 2.1 cm LVOT Mean PG 1.1 mmHg LVOT Peak Prasanna 0.8 m/sec LVOT Peak PG 2.7 mmHg LVOT VTI 19.8 cm MV E Peak Prasanna 0.4 m/sec MV A Peak Prasanna 0.8 m/sec MV E/A 0.6 MV Decel Time 238 msec MV Decel [place] 2 MV E/A 0.6 TR Peak Prasanna 4.0 m/sec TR Peak PG 64.8 mmHg RVSP 75.0 mmHg Findings Left Ventricle: Normal left ventricular systolic function. Normal left ventricular cavity size. Mild concentric left ventricular hypertrophy. Ejection fraction is visually estimated at 55 %. Tissue Doppler/Mitral Doppler indices are consistent with impaired relaxation (Stage I diastolic dysfunction). Right Ventricle: Normal right ventricular systolic function. Mild enlargement of right ventricle. Pacemaker right heart. Left Atrium: There is mild enlargement of left atrium. Right Atrium: There is mild enlargement of right atrium. Mitral Valve: Mild mitral leaflet calcification. Mild mitral annular calcification. Trace mitral regurgitation. Aortic Valve: Aortic sclerosis without stenosis. Mild aortic valve regurgitation. Tricuspid Valve: Normal appearance of the tricuspid valve. Estimated peak PA systolic pressure 75 mmHg. There is moderate tricuspid regurgitation. Pulmonic Valve: Pulmonic valve not well visualized. There is trace pulmonic regurgitation. Pericardium: Normal pericardium with no significant pericardial effusion. Aorta: Normal aortic root. IVC: Inferior vena cava without respiratory collapse, however, patient on ventilator. Conclusions 1.Normal left ventricular systolic function. Normal left ventricular cavity size. Mild concentric left ventricular hypertrophy. Ejection fraction is visually estimated at 55 %. Tissue Doppler/Mitral Doppler indices are consistent with impaired relaxation (Stage I diastolic dysfunction). 2.There is mild enlargement of left atrium. 3.There is mild enlargement of right atrium. 4.Mild mitral leaflet calcification. Mild mitral annular calcification. Trace mitral regurgitation. 5.Aortic sclerosis without stenosis. Mild aortic valve regurgitation. 6.Normal appearance of the tricuspid valve. Estimated peak PA systolic pressure 75 mmHg. There is moderate tricuspid regurgitation. 7.severe pulm HTN. 8.Inferior vena cava without respiratory collapse, however, patient on ventilator. 9.Normal pericardium with no significant pericardial effusion. 10.agitated saline ( bubble study) shows R --> L shunting through atrium c/w PFO or ASD. Electronically Signed By: Kiah Mays 24-Jan-2017 11:05:13 -[id number] Patient Name: CINTIA ROSALES Study Date: 24-Jan-2017 [id number]
[2017-01-25] VITALS (99 sets, daily range): BP systolic 73–153; BP diastolic 43–114; PULSE 72–94; RESP 9–66
[2017-01-25] MEDS: IPRATROPIUM (HFA) 12.9 GM INHALER INH SCH ×4 (01:33→20:33)
[2017-01-25] MEDS: ALBUTEROL 18 GM INHALER INH SCH ×4 (01:33→20:33)
[2017-01-25 05:25] LABS: ADD SCAN DIFF NO
[2017-01-25 05:33] LABS: ABNORMAL IP MESSAGE 1; BASOPHILS % 0.3 % (0.0-2.0); EOSINOPHILS # 0.6 10^3/ul (0.0-0.5); EOSINOPHILS % 5.1 % (0.0-7.0); HEMATOCRIT 25.4 % (37.0-47.0); LYMPHOCYTES # 1.9 10^3/ul (0.8-2.9); LYMPHOCYTES % 16.6 % (15.0-51.0); MEAN CORPUSCULAR HEMOGLOBIN 27.8 pg (29.0-33.0); MEAN CORPUSCULAR HGB CONC 31.5 g/dl (32.0-37.0); MEAN CORPUSCULAR VOLUME 88.2 fl (82.0-101.0); MEAN PLATELET VOLUME 13.2 fl (7.4-10.4); MONOCYTE # 1.4 10^3/ul (0.3-0.9); MONOCYTES % 12.7 % (0.0-11.0); NEUTROPHIL # 7.4 10^3/ul (1.6-7.5); NEUTROPHILS % 64.9 % (39.0-77.0); PLATELET COUNT 148 10^3/UL (140-415); RED BLOOD COUNT 2.88 10^6/ul (4.20-5.40); RED CELL DISTRIBUTION WIDTH 18.9 % (11.5-14.5); WHITE BLOOD COUNT 11.3 10^3/ul (4.8-10.8)
[2017-01-25] MEDS: metroNIDAZOLE 500 MG TAB NGT SCH ×3 (06:00→21:33)
[2017-01-25] MEDS: INSULIN ASPART [NOVOLOG] 3 ML PEN SC SCH ×4 (06:00→17:47)
[2017-01-25 06:01] LABS: CALCIUM 8.9 mg/dl (8.4-10.2); CREATININE 2.75 mg/dl (0.44-1.00); PHOSPHORUS 5.2 mg/dl (2.5-4.9)
--- NOTE | 2017-01-25 07:07 | PN ---
Date/Time of Note Date/Time of Note DATE: 01/25/17 TIME: 07:01 Assessment/Plan VTE Prophylaxis VTE Prophylaxis Intervention: other Lines/Catheters IV Catheter Type (from Nrs): PICC Line Central line still needed: Yes Urinary Cath still in place: No Assessment/Plan Chief Complaint/Hosp Course A/P: 1. acute on chronic hypoxemic hypercapnic respiratory failure: s/p trach: vent dep. still with severe hypoxemia. intermittently requiring [id number]% O2 and difficult to oxygenate. 2. Pafib; currently remains in NSR: off of amiodarone now 3. HX Sick sinus syndrome: s/p PPM: pacemaker was interrogated and personally reviewed on 01/08/17 with normal functioning pacemaker. 4. pneumonia 5. ESRD on HD 6. HX HTN: stable now 7. severe anemia: s/p multiple transfusion 8. severe hypoxemia 9. SHOCK: septic shock and still on levophed drip 10. pulmonary HTN: PA pressure about 75 mmHg on echo 11. evidence of R ---> L shunting on echo with bubble study c/ w PFO/ ASD cont vent support not anticoagulated due to concerns about bleeding and severe anemia. abx as per IM/ ID and pulm team CT pulm angio was negative for PE. CONT aggressive HD HR has remained stable. Will monitor on tele correct lytes prn transfusion prn Off of AMIODARONE due to severe hypoxemia, specially since pt has remained in NSR. cont ICU care RESULTS of echo and bubble study was d/w and explained to daughter. 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 more than 40 minutes of critical care time was spent in management and treatment of this critically ill pt, excluding any procedures. Problems: Subjective 24 Hr Interval Summary Free Text/Dictation CARDIOLOGY FOLLOW UP PROGRESS NOTE/ ICU NOTE: SUBJECTIVE: d/w staff and rhythm was reviewed. pt remains in NSR. no afib noted. pt still with severe hypoxemia and currently on 70% O2 pt is still s/p trach on vent in ICU but was able to be weaned off of levophed drip. pt with no chest pain. d/w daughter yesterday extensively and multiple questions were answered again d/ w multiple physicians. OBJECTIVE. General: s/p trach on vent. in no distress HEENT: NC/AT. pupils are equal. round. NECK: s/p trach. no stridor. CV: RRR. systolic murmur; no gallop or rubs. PULM: no wheezing but + rhonchi anteriorly diffusely GI: SOFT, NT, ND, no rebound or guarding . s/p PEG Extremity: trace B/L LE edema. no clubbing. neuro: drowsy. Psych: calm, pleasant rectal: deferred Derm: + echymosis chest: s/p R mastectomy and HD ACCESS in place. echo 01/24/17 reviewed personally: 1. Normal left ventricular systolic function. Normal left ventricular cavity size. Mild concentric left ventricular hypertrophy. Ejection fraction is visually estimated at 55 %. Tissue Doppler/Mitral Doppler indices are consistent with impaired relaxation (Stage I diastolic dysfunction). 2. There is mild enlargement of left atrium. 3. There is mild enlargement of right atrium. 4. Mild mitral leaflet calcification. Mild mitral annular calcification. Trace mitral regurgitation. 5. Aortic sclerosis without stenosis. Mild aortic valve regurgitation. 6. Normal appearance of the tricuspid valve. Estimated peak PA systolic pressure 75 mmHg. There is moderate tricuspid regurgitation. 7. severe pulm HTN. 8. Inferior vena cava without respiratory collapse, however, patient on ventilator. 9. Normal pericardium with no significant pericardial effusion. 10. agitated saline ( bubble study) shows R --> L shunting through atrium c/w PFO or ASD. Exam/Review of Systems Vital Signs Vitals Vital Signs Date Time Temp Pulse Resp B/P Pulse Ox O2 Delivery O2 Flow Rate FiO2 01/25/17 05:45 76 33 105/66 95 01/25/17 05:01 70 01/25/17 05:00 Mechanical Ventilator 01/25/17 04:00 97.7 Intake and Output 01/24/17 01/24/17 01/25/17 15:00 23:00 07:00 Intake Total 103.10 ml 1024.96 ml 404.65 ml Balance 103.10 ml 1024.96 ml 404.65 ml Results Result Diagram: 01/25/17 0450 01/25/17 0450 Results 24 hrs Laboratory Tests Test 01/24/17 12:08 01/24/17 17:14 01/25/17 00:29 01/25/17 04:50 Bedside Glucose 95 113 110 White Blood Count 11.3 H Red Blood Count 2.88 L Hemoglobin 8.0 L Hematocrit 25.4 L Mean Corpuscular Volume 88.2 Mean Corpuscular Hemoglobin 27.8 L Mean Corpuscular Hemoglobin Concent 31.5 L Red Cell Distribution Width 18.9 H Platelet Count 148 Mean Platelet Volume 13.2 H Neutrophils % 64.9 Lymphocytes % 16.6 Monocytes % 12.7 H Eosinophils % 5.1 Basophils % 0.3 Nucleated Red Blood Cells % 0.0 Neutrophils # 7.4 Lymphocytes # 1.9 Monocytes # 1.4 H Eosinophils # 0.6 H Basophils # 0.0 Nucleated Red Blood Cells # 0.0 Sodium Level 141 Potassium Level 4.0 Chloride Level 97 Carbon Dioxide Level 23 Anion Gap 25 H Blood Urea Nitrogen 83 H Creatinine 2.75 H Glucose Level 108 Calcium Level 8.9 Phosphorus Level 5.2 H Magnesium Level 2.0 Test 01/25/17 05:59 Bedside Glucose 112 Medications Medications Current Medications Acetaminophen (Tylenol Liquid) 650 mg Q4H PRN GTB PAIN OR TEMP ABOVE 38C Last administered on 01/23/17 04:56; Admin Dose 650 MG; Start 01/07/17 at 13:00 Diphenhydramine HCl (Benadryl) 25 mg Q6H PRN GTB ITCHING Last administered on 13:25; Admin Dose 25 MG; Start 01/07/17 at 13:00 Multivit/Ca Carb/ B Cmplx/FA/Prenat (Macrina-Brigitte) 1 tab DAILY GTB Last administered on 01/24/17 08:06; Admin Dose 1 TAB; Start 01/08/17 at 09:00 Ondansetron HCl (Zofran Tab) 4 mg Q4H PRN GTB NAUSEA AND/OR VOMITING Last administered on 01/23/17 13:25; Admin Dose 4 MG; Start 01/07/17 at 13:00 Miscellaneous Information 1 ea NOTE XX ; Start 01/07/17 at 23:45 Glucose (Glutose) 15 gm Q15M PRN PO DECREASED GLUCOSE; Start 01/07/17 at 23:45 Glucose (Glutose) 22.5 gm Q15M PRN PO DECREASED GLUCOSE; Start 01/07/17 at 23:45 Dextrose (D50w Syringe) 25 ml Q15M PRN IV DECREASED GLUCOSE; Start 01/07/17 at 23:45 Dextrose (D50w Syringe) 50 ml Q15M PRN IV DECREASED GLUCOSE; Start 01/07/17 at 23:45 Glucagon (Glucagen) 1 mg Q15M PRN IM DECREASED GLUCOSE; Start 01/07/17 at 23:45 Glucose (Glutose) 15 gm Q15M PRN BUCCAL DECREASED GLUCOSE; Start 01/07/17 at 23: 45 Miscellaneous Information (Pending [facility] Order For Wound Care) This patient lopez... PRN PRN XX WOUND CARE; Start 01/08/17 at 07:30 Insulin Aspart (Novolog Insulin Pen) NOVOLOG *MILD* ALGORI... Q6 SC Last administered on 01/18/17 11:59; Admin Dose 1 UNIT; Start 01/08/17 at 12:00 Heparin Sodium (Porcine) (Heparin (5000 Units/0.5 ml)) 5,000 unit BID SC Last administered on 01/24/17 20:48; Admin Dose 5,000 UNIT; Start 01/10/17 at 21:00 Lorazepam 1 mg 1 mg Q6H PRN PO Agitation Last administered on 01/19/17 08:10; Admin Dose 1 MG; Start 01/10/17 at 13:30; Status Future Hold Midazolam HCl (Versed) 50 ml @ 1 mls/hr TITRATE IV ; Start 01/11/17 at 11:00 Escitalopram Oxalate 10 mg 10 mg DAILY GTB Last administered on 01/24/17 08:06 ; Admin Dose 10 MG; Start 01/13/17 at 09:00 Norepinephrine/ Dextrose (Levophed/D5W) 500 ml @ 1.87 mls/hr TITRATE IV Last administered on 01/24/17 18:18; Admin Dose 9.37 MLS/HR; Start 01/15/17 at 23:45 Midodrine (Proamatine) 10 mg BID@09,17 NGT Last administered on 01/24/17 17:21 ; Admin Dose 10 MG; Start 01/18/17 at 09:00 Oxycodone HCl (Roxicodone) 5 mg Q4H PRN PO PAIN Last administered on 01/23/17 04:59; Admin Dose 5 MG; Start 01/18/17 at 12:00 IV Flush (NS 10 ml) 10 ml PRN PRN IV IV PROTOCOL; Start 01/19/17 at 17:00 Metronidazole (Flagyl) 500 mg Q8 NGT Last administered on 01/25/17t 06:00; Admin Dose 500 MG; Start 01/23/17 at 14:00 KIAH GARCIA MD Jan 25, 2017 07:06
--- NOTE | 2017-01-25 07:19 | PN ---
Date/Time of Note Date/Time of Note DATE: 01/25/17 TIME: 07:12 Assessment/Plan Lines/Catheters IV C[facility]ter Type (from [facility]): PICC Line Urinary Cath still in place: No Assessment/Plan Chief Complaint/Hosp Course 1. hypoxemic respiratory failure. etiology likely multifactorial, chf, ? pna,, patent PFO/ASD causing right to left cardiac shunt -CT angios showed interstitial edema pulmonary edema, no evidence of PE -2D echo shows a right to left cardiac shunt possibly from PFO, versus asd -Discussed case with kiss mixer, recommends transfer to a higher level of care to determine if shun needs to be closed and for continuous monitoring via [place] catheter of pulmonary pressure FiO2 remains high plan -Continue volume removal with dialysis as hemodynamically tolerated -Follow-up with pulmonary -Attempting transferred to [facility] -Monitor 2. septic shock Secondary to UTI, pneumonia -Cortisol level appropriately elevated -Cultures have been reviewed -Patient on pressor support, being weaned off, continue broad-spectrum antibiotics/antifungal Follow-up with infectious disease 3. Encephalopathy, acute. Etiology is likely secondary to toxic metabolic -Mental status appears to be improving continue to monitor 4. Dysphagia, status post percutaneous endoscopic gastrostomy. -Continue tube feeding. 5. ESRD -HD today 7. Atrial fibrillation, currently rate controlled. Continue medical management. -Off anticoagulation secondary to previous bleed - Continue beta louise. We will follow up with cardiology. 8. Anemia. Continue to monitor hemoglobin and hematocrit levels. Continue Epogen 9. Mineral bone disease. Continue to monitor calcium and phosphorus levels. 10. History of breast cancer status post bilateral mastectomy. 11. Congestive heart failure. Continue medical management. 12. Diabetes. Continue Accu-Cheks and sliding scale. 13. History of Clostridium difficile colitis, status post treatment. 14. Gastrointestinal and deep venous thrombosis prophylaxis. Continue Protonix , SCD, heparin 15. Hypernatremia -Monitor 16. Anxiety disorder. cont Lexapro 17. Hypokalemia. Monitor and replete potassium chloride as needed Please note I spent over 35 minutes critical care time with this patient, Case was discussed with family, manager drug safety and kiss mixer Problems: Subjective 24 Hr Interval Summary Free Text/Dictation Patient remains critical but stable condition, FiO2 levels have been stable overnight. Patient's pending dialysis I spoke yesterday with the patient's daughter regarding the echo findings of a possible [id number] shunt due to a PFO or ASD/. Flexographic Press Helper Dr. Jimenez is also spoken with the patient, he will coordinate with patient's primary manager drug safety Dr. Meadows to determine if this is a new or old finding. I additionally spoke with Dr. araya kiss mixer who feels higher level of care is warranted in order to better ascertain patient's pulmonary pressures and to have continuous reading via a [place] catheter I have placed a request for transfer to [facility], the patient was previously at that facility Exam/Review of Systems Vital Signs Vitals Vital Signs Date Time Temp Pulse Resp B/P Pulse Ox O2 Delivery O2 Flow Rate FiO2 01/25/17 07:00 83 17 112/62 92 01/25/17 06:00 Mechanical Ventilator 01/25/17 05:01 70 01/25/17 04:00 97.7 Intake and Output 01/24/17 01/24/17 01/25/17 15:00 23:00 07:00 Intake Total 103.10 ml 1024.96 ml 404.65 ml Balance 103.10 ml 1024.96 ml 404.65 ml Exam HEENT: Head is normocephalic. NECK: Supple. HEART: Irregular LUNGS: Show diminished breath sounds at base. ABDOMEN: Soft, nontender to palpation without rebound or guarding. EXTREMITIES: Negative for clubbing, cyanosis. DERMATOLOGIC: No rashes. MUSCULOSKELETAL: No joint effusions, NEUROLOGIC: No change in exam. Results Result Diagram: 01/25/17 0450 01/25/17 0450 Results 24 hrs Laboratory Tests Test 01/24/17 12:08 01/24/17 17:14 01/25/17 00:29 01/25/17 04:50 Bedside Glucose 95 113 110 White Blood Count 11.3 H Red Blood Count 2.88 L Hemoglobin 8.0 L Hematocrit 25.4 L Mean Corpuscular Volume 88.2 Mean Corpuscular Hemoglobin 27.8 L Mean Corpuscular Hemoglobin Concent 31.5 L Red Cell Distribution Width 18.9 H Platelet Count 148 Mean Platelet Volume 13.2 H Neutrophils % 64.9 Lymphocytes % 16.6 Monocytes % 12.7 H Eosinophils % 5.1 Basophils % 0.3 Nucleated Red Blood Cells % 0.0 Neutrophils # 7.4 Lymphocytes # 1.9 Monocytes # 1.4 H Eosinophils # 0.6 H Basophils # 0.0 Nucleated Red Blood Cells # 0.0 Sodium Level 141 Potassium Level 4.0 Chloride Level 97 Carbon Dioxide Level 23 Anion Gap 25 H Blood Urea Nitrogen 83 H Creatinine 2.75 H Glucose Level 108 Calcium Level 8.9 Phosphorus Level 5.2 H Magnesium Level 2.0 Test 01/25/17 05:59 Bedside Glucose 112 Medications Medications Current Medications Acetaminophen (Tylenol Liquid) 650 mg Q4H PRN GTB PAIN OR TEMP ABOVE 38C Last administered on 01/23/17 04:56; Admin Dose 650 MG; Start 01/07/17 at 13:00 Diphenhydramine HCl (Benadryl) 25 mg Q6H PRN GTB ITCHING Last administered on 13:25; Admin Dose 25 MG; Start 01/07/17 at 13:00 Multivit/Ca Carb/ B Cmplx/FA/Prenat (Macrina-Brigitte) 1 tab DAILY GTB Last administered on 01/24/17 08:06; Admin Dose 1 TAB; Start 01/08/17 at 09:00 Ondansetron HCl (Zofran Tab) 4 mg Q4H PRN GTB NAUSEA AND/OR VOMITING Last administered on 01/23/17 13:25; Admin Dose 4 MG; Start 01/07/17 at 13:00 Miscellaneous Information 1 ea NOTE XX ; Start 01/07/17 at 23:45 Glucose (Glutose) 15 gm Q15M PRN PO DECREASED GLUCOSE; Start 01/07/17 at 23:45 Glucose (Glutose) 22.5 gm Q15M PRN PO DECREASED GLUCOSE; Start 01/07/17 at 23:45 Dextrose (D50w Syringe) 25 ml Q15M PRN IV DECREASED GLUCOSE; Start 01/07/17 at 23:45 Dextrose (D50w Syringe) 50 ml Q15M PRN IV DECREASED GLUCOSE; Start 01/07/17 at 23:45 Glucagon (Glucagen) 1 mg Q15M PRN IM DECREASED GLUCOSE; Start 01/07/17 at 23:45 Glucose (Glutose) 15 gm Q15M PRN BUCCAL DECREASED GLUCOSE; Start 01/07/17 at 23: 45 Miscellaneous Information (Pending [facility] Order For Wound Care) This patient lopez... PRN PRN XX WOUND CARE; Start 01/08/17 at 07:30 Insulin Aspart (Novolog Insulin Pen) NOVOLOG *MILD* ALGORI... Q6 SC Last administered on 01/18/17 11:59; Admin Dose 1 UNIT; Start 01/08/17 at 12:00 Heparin Sodium (Porcine) (Heparin (5000 Units/0.5 ml)) 5,000 unit BID SC Last administered on 01/24/17 20:48; Admin Dose 5,000 UNIT; Start 01/10/17 at 21:00 Lorazepam 1 mg 1 mg Q6H PRN PO Agitation Last administered on 01/19/17 08:10; Admin Dose 1 MG; Start 01/10/17 at 13:30; Status Future Hold Midazolam HCl (Versed) 50 ml @ 1 mls/hr TITRATE IV ; Start 01/11/17 at 11:00 Escitalopram Oxalate 10 mg 10 mg DAILY GTB Last administered on 01/24/17 08:06 ; Admin Dose 10 MG; Start 01/13/17 at 09:00 Norepinephrine/ Dextrose (Levophed/D5W) 500 ml @ 1.87 mls/hr TITRATE IV Last administered on 01/24/17 18:18; Admin Dose 9.37 MLS/HR; Start 01/15/17 at 23:45 Midodrine (Proamatine) 10 mg BID@09,17 NGT Last administered on 01/24/17 17:21 ; Admin Dose 10 MG; Start 01/18/17 at 09:00 Oxycodone HCl (Roxicodone) 5 mg Q4H PRN PO PAIN Last administered on 01/23/17 04:59; Admin Dose 5 MG; Start 01/18/17 at 12:00 IV Flush (NS 10 ml) 10 ml PRN PRN IV IV PROTOCOL; Start 01/19/17 at 17:00 Metronidazole (Flagyl) 500 mg Q8 NGT Last administered on 01/25/17 06:00; Admin Dose 500 MG; Start 01/23/17 at 14:00 CHARLIE BUSBY DO Jan 25, 2017 07:18
[2017-01-25] MEDS: MULTIVIT/CA CARB/B CMPLX/FA TAB GTB SCH (08:14)
[2017-01-25] MEDS: LANSOPRAZOLE 30 MG CAP GTB SCH (08:14)
[2017-01-25] MEDS: ESCITALOPRAM 10 MG TAB GTB SCH (08:14)
[2017-01-25] MEDS: RISEDRONATE 5 MG TAB GTB SCH (08:14)
[2017-01-25] MEDS: MIDODRINE 5 MG TAB NGT SCH ×2 (08:14→16:19)
[2017-01-25] MEDS: HEPARIN 5,000 UNIT/0.5 ML VIAL SC SCH ×2 (08:15→21:32)
--- NOTE | 2017-01-25 10:46 | CONS ---
Date/Time of Note Date/Time of Note DATE: 01/25/17 TIME: 10:45 Assessment/Plan Assessment/Plan Chief Complaint/Hosp Course No acute changes. Patient is awake, looks comfortable. Still on Levophed drip. Temperature 98.4 pulse 75 respirations 18 blood pressure 126/71 saturation 97 on vent WBC 11 point H&H 8 and 25.4 platelets 148 no shift Antibiotics: Flagyl Indwelling: PICC line trach PEG right chest permacath Allergy: Erythromycin, vancomycin Physical examination: Chronically ill-appearing elderly woman who is in no distress. Head atraumatic normocephalic, sclera nonicteric, neck is supple, tracheostomy present. Chest rise symmetrical, breath sounds diminished basis. Heart S1-S2. Abdomen soft, bowel tones present. Extremities no cyanosis Assessment: 1. Acute on chronic Hypoxemic Resp Failure secondary to shows R --> L shunting through atrium c/w PFO or ASD as per 2D echo report 2. S/p UTI 3. VDRF 4. ESRD on HD 5. Diarrhea, on empiric Flagyl Plan: Remains unchanged, clinically stable and more awake, continue Flagyl, repeat cultures prn, follow pulmonary and cardiology recommendations Discussed with staff Problems: Consultation Date/Type/Reason Admit Date/Time Jan 07, 2017 at 12:43 Initial Consult Date 01/08/17 Type of Consultation: ID Referring Provider: YAYO EDGAR DO Exam/Review of Systems Vital Signs Vitals Vital Signs Date Time Temp Pulse Resp B/P Pulse Ox O2 Delivery O2 Flow Rate FiO2 01/25/17 10:30 75 18 126/71 97 Mechanical Ventilator 01/25/17 08:00 98.4 01/25/17 05:01 70 Intake and Output 01/24/17 01/24/17 01/25/17 15:00 23:00 07:00 Intake Total 103.10 ml 1024.96 ml 404.65 ml Balance 103.10 ml 1024.96 ml 404.65 ml Results Result Diagram: 01/25/17 0450 01/25/17 0450 Results 24 hrs Laboratory Tests Test 01/24/17 12:08 01/24/17 17:14 01/25/17 00:29 01/25/17 04:50 Bedside Glucose 95 113 110 White Blood Count 11.3 H Red Blood Count 2.88 L Hemoglobin 8.0 L Hematocrit 25.4 L Mean Corpuscular Volume 88.2 Mean Corpuscular Hemoglobin 27.8 L Mean Corpuscular Hemoglobin Concent 31.5 L Red Cell Distribution Width 18.9 H Platelet Count 148 Mean Platelet Volume 13.2 H Neutrophils % 64.9 Lymphocytes % 16.6 Monocytes % 12.7 H Eosinophils % 5.1 Basophils % 0.3 Nucleated Red Blood Cells % 0.0 Neutrophils # 7.4 Lymphocytes # 1.9 Monocytes # 1.4 H Eosinophils # 0.6 H Basophils # 0.0 Nucleated Red Blood Cells # 0.0 Sodium Level 141 Potassium Level 4.0 Chloride Level 97 Carbon Dioxide Level 23 Anion Gap 25 H Blood Urea Nitrogen 83 H Creatinine 2.75 H Glucose Level 108 Calcium Level 8.9 Phosphorus Level 5.2 H Magnesium Level 2.0 Test 01/25/17 05:59 Bedside Glucose 112 Medications Medications Current Medications Acetaminophen (Tylenol Liquid) 650 mg Q4H PRN GTB PAIN OR TEMP ABOVE 38C Last administered on 01/23/17 04:56; Admin Dose 650 MG; Start 01/07/17 at 13:00 Diphenhydramine HCl (Benadryl) 25 mg Q6H PRN GTB ITCHING Last administered on 13:25; Admin Dose 25 MG; Start 01/07/17 at 13:00 Multivit/Ca Carb/ B Cmplx/FA/Prenat (Macrina-Brigitte) 1 tab DAILY GTB Last administered on 01/25/17 08:14; Admin Dose 1 TAB; Start 01/08/17 at 09:00 Ondansetron HCl (Zofran Tab) 4 mg Q4H PRN GTB NAUSEA AND/OR VOMITING Last administered on 01/23/17 13:25; Admin Dose 4 MG; Start 01/07/17 at 13:00 Miscellaneous Information 1 ea NOTE XX ; Start 01/07/17 at 23:45 Glucose (Glutose) 15 gm Q15M PRN PO DECREASED GLUCOSE; Start 01/07/17 at 23:45 Glucose (Glutose) 22.5 gm Q15M PRN PO DECREASED GLUCOSE; Start 01/07/17 at 23:45 Dextrose (D50w Syringe) 25 ml Q15M PRN IV DECREASED GLUCOSE; Start 01/07/17 at 23:45 Dextrose (D50w Syringe) 50 ml Q15M PRN IV DECREASED GLUCOSE; Start 01/07/17 at 23:45 Glucagon (Glucagen) 1 mg Q15M PRN IM DECREASED GLUCOSE; Start 01/07/17 at 23:45 Glucose (Glutose) 15 gm Q15M PRN BUCCAL DECREASED GLUCOSE; Start 01/07/17 at 23: 45 Miscellaneous Information (Pending [facility] Order For Wound Care) This patient lopez... PRN PRN XX WOUND CARE; Start 01/08/17 at 07:30 Insulin Aspart (Novolog Insulin Pen) NOVOLOG *MILD* ALGORI... Q6 SC Last administered on 01/18/17 11:59; Admin Dose 1 UNIT; Start 01/08/17 at 12:00 Heparin Sodium (Porcine) (Heparin (5000 Units/0.5 ml)) 5,000 unit BID SC Last administered on 01/25/17 08:15; Admin Dose 5,000 UNIT; Start 01/10/17 at 21:00 Lorazepam 1 mg 1 mg Q6H PRN PO Agitation Last administered on 01/19/17 08:10; Admin Dose 1 MG; Start 01/10/17 at 13:30; Status Future Hold Midazolam HCl (Versed) 50 ml @ 1 mls/hr TITRATE IV ; Start 01/11/17 at 11:00 Escitalopram Oxalate 10 mg 10 mg DAILY GTB Last administered on 01/25/17 08:14 ; Admin Dose 10 MG; Start 01/13/17 at 09:00 Norepinephrine/ Dextrose (Levophed/D5W) 500 ml @ 1.87 mls/hr TITRATE IV Last administered on 01/24/17 18:18; Admin Dose 9.37 MLS/HR; Start 01/15/17 at 23:45 Midodrine (Proamatine) 10 mg BID@09,17 NGT Last administered on 01/25/17 08:14 ; Admin Dose 10 MG; Start 01/18/17 at 09:00 Oxycodone HCl (Roxicodone) 5 mg Q4H PRN PO PAIN Last administered on 01/23/17 04:59; Admin Dose 5 MG; Start 01/18/17 at 12:00 IV Flush (NS 10 ml) 10 ml PRN PRN IV IV PROTOCOL; Start 01/19/17 at 17:00 Metronidazole (Flagyl) 500 mg Q8 NGT Last administered on 01/25/17t 06:00; Admin Dose 500 MG; Start 01/23/17 at 14:00 AI FUNEZ NP Jan 25, 2017 10:46
--- NOTE | 2017-01-25 14:14 | CONS ---
Date/Time of Note Date/Time of Note DATE: 01/25/17 TIME: 14:12 Consult Date/Type/Reason Admit Date/Time Jan 07, 2017 at 12:43 Initial Consult Date 01/08/17 Type of Consultation: Pulmonary ICU Ordering Provider: YAYO EDGAR DO Subjective Patient is better today set up with the help of physical therapy. FiO2 of 70% PEEP of 12. Objective Vital Signs Date Time Temp Pulse Resp B/P Pulse Ox O2 Delivery O2 Flow Rate FiO2 01/25/17 13:30 83 18 115/58 100 Mechanical Ventilator 01/25/17 12:00 98.9 01/25/17 08:00 70 Intake and Output 01/24/17 01/24/17 01/25/17 14:59 22:59 06:59 Intake Total 112.48 ml 964.96 ml 474.02 ml Balance 112.48 ml 964.96 ml 474.02 ml Exam GENERAL: Comfortable on mechanical ventilation opens eyes to questions. VITAL SIGNS: per chart NECK: Supple. No JVD or lymphadenopathy. CARDIAC EXAM: S1, S2. No added sounds or murmurs. CHEST: clear bilaterally, No added sounds, rales or wheezes ABDOMEN: Diminished air entry bilaterally no rales wheezes EXTREMITIES: No cyanosis, clubbing or edema. NEUROLOGIC: Generalized weakness. No focal deficits. Results/Medications Result Diagram: 01/25/17 0450 01/25/17 0450 Results 24 hrs Laboratory Tests Test 01/24/17 17:14 01/25/17 00:29 01/25/17 04:50 01/25/17 05:59 Bedside Glucose 113 110 112 White Blood Count 11.3 H Red Blood Count 2.88 L Hemoglobin 8.0 L Hematocrit 25.4 L Mean Corpuscular Volume 88.2 Mean Corpuscular Hemoglobin 27.8 L Mean Corpuscular Hemoglobin Concent 31.5 L Red Cell Distribution Width 18.9 H Platelet Count 148 Mean Platelet Volume 13.2 H Neutrophils % 64.9 Lymphocytes % 16.6 Monocytes % 12.7 H Eosinophils % 5.1 Basophils % 0.3 Nucleated Red Blood Cells % 0.0 Neutrophils # 7.4 Lymphocytes # 1.9 Monocytes # 1.4 H Eosinophils # 0.6 H Basophils # 0.0 Nucleated Red Blood Cells # 0.0 Sodium Level 141 Potassium Level 4.0 Chloride Level 97 Carbon Dioxide Level 23 Anion Gap 25 H Blood Urea Nitrogen 83 H Creatinine 2.75 H Glucose Level 108 Calcium Level 8.9 Phosphorus Level 5.2 H Magnesium Level 2.0 Test 01/25/17 12:22 Bedside Glucose 157 Medications Current Medications Acetaminophen (Tylenol Liquid) 650 mg Q4H PRN GTB PAIN OR TEMP ABOVE 38C Last administered on 01/23/17 04:56; Admin Dose 650 MG; Start 01/07/17 at 13:00 Diphenhydramine HCl (Benadryl) 25 mg Q6H PRN GTB ITCHING Last administered on 13:25; Admin Dose 25 MG; Start 01/07/17 at 13:00 Multivit/Ca Carb/ B Cmplx/FA/Prenat (Macrina-Brigitte) 1 tab DAILY GTB Last administered on 01/25/17 08:14; Admin Dose 1 TAB; Start 01/08/17 at 09:00 Ondansetron HCl (Zofran Tab) 4 mg Q4H PRN GTB NAUSEA AND/OR VOMITING Last administered on 01/23/17 13:25; Admin Dose 4 MG; Start 01/07/17 at 13:00 Miscellaneous Information 1 ea NOTE XX ; Start 01/07/17 at 23:45 Glucose (Glutose) 15 gm Q15M PRN PO DECREASED GLUCOSE; Start 01/07/17 at 23:45 Glucose (Glutose) 22.5 gm Q15M PRN PO DECREASED GLUCOSE; Start 01/07/17 at 23:45 Dextrose (D50w Syringe) 25 ml Q15M PRN IV DECREASED GLUCOSE; Start 01/07/17 at 23:45 Dextrose (D50w Syringe) 50 ml Q15M PRN IV DECREASED GLUCOSE; Start 01/07/17 at 23:45 Glucagon (Glucagen) 1 mg Q15M PRN IM DECREASED GLUCOSE; Start 01/07/17 at 23:45 Glucose (Glutose) 15 gm Q15M PRN BUCCAL DECREASED GLUCOSE; Start 01/07/17 at 23: 45 Miscellaneous Information (Pending [facility] Order For Wound Care) This patient lopez... PRN PRN XX WOUND CARE; Start 01/08/17 at 07:30 Insulin Aspart (Novolog Insulin Pen) NOVOLOG *MILD* ALGORI... Q6 SC Last administered on 01/25/17 12:24; Admin Dose 1 UNIT; Start 01/08/17 at 12:00 Heparin Sodium (Porcine) (Heparin (5000 Units/0.5 ml)) 5,000 unit BID SC Last administered on 01/25/17 08:15; Admin Dose 5,000 UNIT; Start 01/10/17 at 21:00 Lorazepam 1 mg 1 mg Q6H PRN PO Agitation Last administered on 01/19/17 08:10; Admin Dose 1 MG; Start 01/10/17 at 13:30; Status Future Hold Midazolam HCl (Versed) 50 ml @ 1 mls/hr TITRATE IV ; Start 01/11/17 at 11:00 Escitalopram Oxalate 10 mg 10 mg DAILY GTB Last administered on 01/25/17 08:14 ; Admin Dose 10 MG; Start 01/13/17 at 09:00 Norepinephrine/ Dextrose (Levophed/D5W) 500 ml @ 1.87 mls/hr TITRATE IV Last administered on 01/24/17 18:18; Admin Dose 9.37 MLS/HR; Start 01/15/17 at 23:45 Midodrine (Proamatine) 10 mg BID@09,17 NGT Last administered on 01/25/17 08:14 ; Admin Dose 10 MG; Start 01/18/17 at 09:00 Oxycodone HCl (Roxicodone) 5 mg Q4H PRN PO PAIN Last administered on 01/23/17 04:59; Admin Dose 5 MG; Start 01/18/17 at 12:00 IV Flush (NS 10 ml) 10 ml PRN PRN IV IV PROTOCOL; Start 01/19/17 at 17:00 Metronidazole (Flagyl) 500 mg Q8 NGT Last administered on 01/25/17 06:00; Admin Dose 500 MG; Start 01/23/17 at 14:00 Assessment/Plan Chief Complaint/Hosp Course 1 IMP: 1. Acute on chronic hypoxemic respiratory failure possible component of worsening volume overload in addition to pneumonia. Questionable aspergillus infection given thick mucoid secretions. IgE less than 200. Not consistent with ABPA. Will await coccidiomycosis serology 2. UTI 3. VDRF 4. ESRD on HD status post hemodialysis 5. Anemia likely secondary to underlying renal disease 6. Shock likely combination of sepsis and hypovolemia 7. Persistent hypoxemia compensated by intracardiac shunt on echocardiogram. RECS: 1. Decrease FiO2 and PEEP as tolerated. 2. Continue pulmonary toilet, not for bronchoscopy at present. 3. Continue hemodialysis with volume removal 4. continue antibiotics per ID, check IgE and aspergillus precipitants results were pending, coccidiomycosis pending 5. continue Mucomyst 6. Continue pain control and medications for anxiety. 7. Decrease Levophed as tolerated. Goal for map of 60 8. Cardiac recommendations, discussed echocardiogram findings may require closure of shunt. Critical care time 40 minutes Discussed with primary care team and agree with transfer to tertiary care facility if possible. Problems: RHONDA BUENROSTRO MD, [facility] Jan 25, 2017 14:13
[2017-01-25] MEDS: EPOETIN 4000 UNITS/1 ML INJ (ESRD) SC SCH (17:49)
[2017-01-26] VITALS (36 sets, daily range): BP systolic 89–114; BP diastolic 51–82; PULSE 81–123; RESP 14–36
[2017-01-26] MEDS: ALBUTEROL 18 GM INHALER INH SCH ×4 (02:25→20:23)
[2017-01-26] MEDS: IPRATROPIUM (HFA) 12.9 GM INHALER INH SCH ×4 (02:25→20:23)
[2017-01-26] MEDS: INSULIN ASPART [NOVOLOG] 3 ML PEN SC SCH ×5 (05:28→23:48)
[2017-01-26] MEDS: metroNIDAZOLE 500 MG TAB NGT SCH ×3 (05:28→21:18)
[2017-01-26 05:31] LABS: ADD SCAN DIFF NO
[2017-01-26 05:34] LABS: ABNORMAL IP MESSAGE 1; BASOPHILS % 0.2 % (0.0-2.0); EOSINOPHILS # 0.4 10^3/ul (0.0-0.5); EOSINOPHILS % 4.2 % (0.0-7.0); ERYTHROBLAST% (NRBC) (M) 0.5 /100WBC (0.0-0.0); HEMATOCRIT 25.1 % (37.0-47.0); HEMOGLOBIN 8.1 g/dl (12.0-16.0); LYMPHOCYTES # 1.4 10^3/ul (0.8-2.9); LYMPHOCYTES % 13.7 % (15.0-51.0); MEAN CORPUSCULAR HEMOGLOBIN 28.2 pg (29.0-33.0); MEAN CORPUSCULAR HGB CONC 32.3 g/dl (32.0-37.0); MEAN CORPUSCULAR VOLUME 87.5 fl (82.0-101.0); MEAN PLATELET VOLUME 13.7 fl (7.4-10.4); MONOCYTE # 1.3 10^3/ul (0.3-0.9); MONOCYTES % 12.8 % (0.0-11.0); NEUTROPHIL # 7.1 10^3/ul (1.6-7.5); NEUTROPHILS % 68.4 % (39.0-77.0); NUCLEATED RED BLOOD CELLS # 0.1 10^3/ul (0.0-0.0); PLATELET COUNT 150 10^3/UL (140-415); RED BLOOD COUNT 2.87 10^6/ul (4.20-5.40); RED CELL DISTRIBUTION WIDTH 18.8 % (11.5-14.5); WHITE BLOOD COUNT 10.4 10^3/ul (4.8-10.8)
[2017-01-26] MEDS: LANSOPRAZOLE 30 MG CAP GTB SCH ×2 (06:05→06:08)
[2017-01-26 06:08] LABS: CALCIUM 8.7 mg/dl (8.4-10.2); CREATININE 1.87 mg/dl (0.44-1.00); MAGNESIUM 1.7 mg/dl (1.7-2.5); PHOSPHORUS 2.3 mg/dl (2.5-4.9); POTASSIUM 4.1 mmol/L (3.5-5.1)
[2017-01-26] MEDS: RISEDRONATE 5 MG TAB GTB SCH (06:09)
--- NOTE | 2017-01-26 07:49 | PN ---
Date/Time of Note Date/Time of Note DATE: 01/26/17 TIME: 07:44 Assessment/Plan Lines/Catheters IV Catheter Type (from [facility] [[email or web address] PICC Line Urinary Cath still in place: No Assessment/Plan Chief Complaint/Hosp Course 1. hypoxemic respiratory failure. etiology likely multifactorial, chf, ? pna,, patent PFO/ASD causing right to left cardiac shunt -CT angios showed interstitial edema pulmonary edema, no evidence of PE -2D echo shows a right to left cardiac shunt possibly from PFO, versus asd -Discussed case with motorsports technician, recommends transfer to a higher level of care to determine if shunt needs to be closed and for continuous monitoring via [place] catheter of pulmonary pressure FiO2 remains high slowly improving plan -Continue volume removal with dialysis as hemodynamically tolerated -Follow-up with pulmonary -Attempting transferred to [facility] -Monitor 2. septic shock Secondary to UTI, pneumonia -Cortisol level appropriately elevated -Cultures have been reviewed -Patient off pressors , continue broad-spectrum antibiotics Follow-up with infectious disease 3. Encephalopathy, acute. Etiology is likely secondary to toxic metabolic -Mental status appears to be improving continue to monitor 4. Dysphagia, status post percutaneous endoscopic gastrostomy. -Continue tube feeding. 5. ESRD -HD tomorrow 7. Atrial fibrillation, currently rate controlled. Continue medical management. -Off anticoagulation secondary to previous bleed - Continue beta louise. We will follow up with cardiology. 8. Anemia. Continue to monitor hemoglobin and hematocrit levels. Continue Epogen -Consider blood transfusion with next hemodialysis 9. Mineral bone disease. Continue to monitor calcium and phosphorus levels. 10. History of breast cancer status post bilateral mastectomy. 11. Congestive heart failure. Continue medical management. 12. Diabetes. Continue Accu-Cheks and sliding scale. 13. History of Clostridium difficile colitis, status post treatment. 14. Gastrointestinal and deep venous thrombosis prophylaxis. Continue Protonix , SCD, heparin 15. Hypernatremia -Monitor 16. Anxiety disorder. cont Lexapro 17. Hypokalemia. Monitor and replete potassium chloride as needed Please note I spent over 35 minutes critical care time with this patient, Case was discussed with family, cinder block mason and motorsports technician Problems: Subjective 24 Hr Interval Summary Free Text/Dictation Patient is critical but stable. Off of pressor support. FiO2 levels remain around 70% and stable. Patient's pending possible transfer to [facility] once bed is available Exam/Review of Systems Vital Signs Vitals Vital Signs Date Time Temp Pulse Resp B/P Pulse Ox O2 Delivery O2 Flow Rate FiO2 01/26/17 06:00 95 27 113/53 95 01/26/17 05:28 80 01/26/17 03:00 Mechanical Ventilator 01/26/17 00:00 99.4 Intake and Output 01/25/17 01/25/17 01/26/17 15:00 23:00 07:00 Intake Total 851.86 ml 564.99 ml 450 ml Output Total 3300 ml Balance -2448.14 ml 564.99 ml 450 ml Exam HEENT: Head is normocephalic. NECK: Supple. HEART: Irregular LUNGS: Show diminished breath sounds at base. ABDOMEN: Soft, nontender to palpation without rebound or guarding. EXTREMITIES: Negative for clubbing, cyanosis. DERMATOLOGIC: No rashes. MUSCULOSKELETAL: No joint effusions, NEUROLOGIC: No change in exam. Results Result Diagram: 01/26/17 0448 01/26/17 0448 Results 24 hrs Laboratory Tests Test 01/25/17 12:22 01/25/17 17:46 01/26/17 00:22 01/26/17 04:48 Bedside Glucose 157 119 110 White Blood Count 10.4 Red Blood Count 2.87 L Hemoglobin 8.1 L Hematocrit 25.1 L Mean Corpuscular Volume 87.5 Mean Corpuscular Hemoglobin 28.2 L Mean Corpuscular Hemoglobin Concent 32.3 Red Cell Distribution Width 18.8 H Platelet Count 150 Mean Platelet Volume 13.7 H Neutrophils % 68.4 Lymphocytes % 13.7 L Monocytes % 12.8 H Eosinophils % 4.2 Basophils % 0.2 Nucleated Red Blood Cells % 0.5 H Neutrophils # 7.1 Lymphocytes # 1.4 Monocytes # 1.3 H Eosinophils # 0.4 Basophils # 0.0 Nucleated Red Blood Cells # 0.1 H Sodium Level 138 Potassium Level 4.1 Chloride Level 92 L Carbon Dioxide Level 27 Anion Gap 23 H Blood Urea Nitrogen 54 H Creatinine 1.87 H Glucose Level 119 Calcium Level 8.7 Phosphorus Level 2.3 #L Magnesium Level 1.7 Test 01/26/17 05:26 Bedside Glucose 127 Medications Medications Current Medications Acetaminophen (Tylenol Liquid) 650 mg Q4H PRN GTB PAIN OR TEMP ABOVE 38C Last administered on 01/23/17 04:56; Admin Dose 650 MG; Start 01/07/17 at 13:00 Diphenhydramine HCl (Benadryl) 25 mg Q6H PRN GTB ITCHING Last administered on 13:25; Admin Dose 25 MG; Start 01/07/17 at 13:00 Multivit/Ca Carb/ B Cmplx/FA/Prenat (Macrina-Brigitte) 1 tab DAILY GTB Last administered on 01/25/17 08:14; Admin Dose 1 TAB; Start 01/08/17 at 09:00 Ondansetron HCl (Zofran Tab) 4 mg Q4H PRN GTB NAUSEA AND/OR VOMITING Last administered on 01/23/17 13:25; Admin Dose 4 MG; Start 01/07/17 at 13:00 Miscellaneous Information 1 ea NOTE XX ; Start 01/07/17 at 23:45 Glucose (Glutose) 15 gm Q15M PRN PO DECREASED GLUCOSE; Start 01/07/17 at 23:45 Glucose (Glutose) 22.5 gm Q15M PRN PO DECREASED GLUCOSE; Start 01/07/17 at 23:45 Dextrose (D50w Syringe) 25 ml Q15M PRN IV DECREASED GLUCOSE; Start 01/07/17 at 23:45 Dextrose (D50w Syringe) 50 ml Q15M PRN IV DECREASED GLUCOSE; Start 01/07/17 at 23:45 Glucagon (Glucagen) 1 mg Q15M PRN IM DECREASED GLUCOSE; Start 01/07/17 at 23:45 Glucose (Glutose) 15 gm Q15M PRN BUCCAL DECREASED GLUCOSE; Start 01/07/17 at 23: 45 Miscellaneous Information (Pending [facility] Order For Wound Care) This patient lopez... PRN PRN XX WOUND CARE; Start 01/08/17 at 07:30 Insulin Aspart (Novolog Insulin Pen) NOVOLOG *MILD* ALGORI... Q6 SC Last administered on 01/25/17 12:24; Admin Dose 1 UNIT; Start 01/08/17 at 12:00 Heparin Sodium (Porcine) (Heparin (5000 Units/0.5 ml)) 5,000 unit BID SC Last administered on 01/25/17 21:32; Admin Dose 5,000 UNIT; Start 01/10/17 at 21:00 Lorazepam 1 mg 1 mg Q6H PRN PO Agitation Last administered on 01/19/17 08:10; Admin Dose 1 MG; Start 01/10/17 at 13:30; Status Future Hold Midazolam HCl (Versed) 50 ml @ 1 mls/hr TITRATE IV ; Start 01/11/17 at 11:00 Escitalopram Oxalate 10 mg 10 mg DAILY GTB Last administered on 01/25/17 08:14 ; Admin Dose 10 MG; Start 01/13/17 at 09:00 Norepinephrine/ Dextrose (Levophed/D5W) 500 ml @ 1.87 mls/hr TITRATE IV Last administered on 01/24/17 18:18; Admin Dose 9.37 MLS/HR; Start 01/15/17 at 23:45 Midodrine (Proamatine) 10 mg BID@09,17 NGT Last administered on 01/25/17 16:19 ; Admin Dose 10 MG; Start 01/18/17 at 09:00 Oxycodone HCl (Roxicodone) 5 mg Q4H PRN PO PAIN Last administered on 01/23/17 04:59; Admin Dose 5 MG; Start 01/18/17 at 12:00 IV Flush (NS 10 ml) 10 ml PRN PRN IV IV PROTOCOL; Start 01/19/17 at 17:00 Metronidazole (Flagyl) 500 mg Q8 NGT Last administered on 01/26/17 05:28; Admin Dose 500 MG; Start 01/23/17 at 14:00 CHARLIE BUSBY DO Jan 26, 2017 07:48
[2017-01-26] MEDS: MULTIVIT/CA CARB/B CMPLX/FA TAB GTB SCH (08:45)
[2017-01-26] MEDS: ESCITALOPRAM 10 MG TAB GTB SCH (08:45)
[2017-01-26] MEDS: MIDODRINE 5 MG TAB NGT SCH ×2 (08:45→18:45)
[2017-01-26] MEDS: HEPARIN 5,000 UNIT/0.5 ML VIAL SC SCH ×2 (08:46→21:22)
--- NOTE | 2017-01-26 11:21 | CONS ---
Date/Time of Note Date/Time of Note DATE: 01/26/17 TIME: 11:20 Consult Date/Type/Reason Admit Date/Time Jan 07, 2017 at 12:43 Initial Consult Date 01/08/17 Type of Consultation: Pulmonary ICU Ordering Provider: YAYO EDGAR DO Subjective Patient's oxygen requirements continue to fluctuate. This morning she is on 80 % FiO2 with a PEEP of 12. Awake and alert comfortable Objective Vital Signs Date Time Temp Pulse Resp B/P Pulse Ox O2 Delivery O2 Flow Rate FiO2 01/26/17 10:00 85 14 104/58 93 Mechanical Ventilator 01/26/17 09:37 80 01/26/17 08:00 98.1 Intake and Output 01/25/17 01/25/17 01/26/17 14:59 22:59 06:59 Intake Total 841.86 ml 564.99 ml 500 ml Output Total 3300 ml Balance -2458.14 ml 564.99 ml 500 ml Exam GENERAL: Comfortable on mechanical ventilation opens eyes to questions. VITAL SIGNS: per chart NECK: Supple. No JVD or lymphadenopathy. CARDIAC EXAM: S1, S2. No added sounds or murmurs. CHEST: clear bilaterally, No added sounds, rales or wheezes ABDOMEN: Diminished air entry bilaterally no rales wheezes EXTREMITIES: No cyanosis, clubbing or edema. NEUROLOGIC: Generalized weakness. No focal deficits. Results/Medications Result Diagram: 01/26/17 0448 01/26/17 0448 Results 24 hrs Laboratory Tests Test 01/25/17 12:22 01/25/17 17:46 01/26/17 00:22 01/26/17 04:48 Bedside Glucose 157 119 110 White Blood Count 10.4 Red Blood Count 2.87 L Hemoglobin 8.1 L Hematocrit 25.1 L Mean Corpuscular Volume 87.5 Mean Corpuscular Hemoglobin 28.2 L Mean Corpuscular Hemoglobin Concent 32.3 Red Cell Distribution Width 18.8 H Platelet Count 150 Mean Platelet Volume 13.7 H Neutrophils % 68.4 Lymphocytes % 13.7 L Monocytes % 12.8 H Eosinophils % 4.2 Basophils % 0.2 Nucleated Red Blood Cells % 0.5 H Neutrophils # 7.1 Lymphocytes # 1.4 Monocytes # 1.3 H Eosinophils # 0.4 Basophils # 0.0 Nucleated Red Blood Cells # 0.1 H Sodium Level 138 Potassium Level 4.1 Chloride Level 92 L Carbon Dioxide Level 27 Anion Gap 23 H Blood Urea Nitrogen 54 H Creatinine 1.87 H Glucose Level 119 Calcium Level 8.7 Phosphorus Level 2.3 #L Magnesium Level 1.7 Test 01/26/17 05:26 01/26/17 10:20 Bedside Glucose 127 Lab Scanned Report REFERENCE LAB Medications Current Medications Acetaminophen (Tylenol Liquid) 650 mg Q4H PRN GTB PAIN OR TEMP ABOVE 38C Last administered on 01/23/17 04:56; Admin Dose 650 MG; Start 01/07/17 at 13:00 Diphenhydramine HCl (Benadryl) 25 mg Q6H PRN GTB ITCHING Last administered on 13:25; Admin Dose 25 MG; Start 01/07/17 at 13:00 Multivit/Ca Carb/ B Cmplx/FA/Prenat (Macrina-Brigitte) 1 tab DAILY GTB Last administered on 01/26/17 08:45; Admin Dose 1 TAB; Start 01/08/17 at 09:00 Ondansetron HCl (Zofran Tab) 4 mg Q4H PRN GTB NAUSEA AND/OR VOMITING Last administered on 01/23/17 13:25; Admin Dose 4 MG; Start 01/07/17 at 13:00 Miscellaneous Information 1 ea NOTE XX ; Start 01/07/17 at 23:45 Glucose (Glutose) 15 gm Q15M PRN PO DECREASED GLUCOSE; Start 01/07/17 at 23:45 Glucose (Glutose) 22.5 gm Q15M PRN PO DECREASED GLUCOSE; Start 01/07/17 at 23:45 Dextrose (D50w Syringe) 25 ml Q15M PRN IV DECREASED GLUCOSE; Start 01/07/17 at 23:45 Dextrose (D50w Syringe) 50 ml Q15M PRN IV DECREASED GLUCOSE; Start 01/07/17 at 23:45 Glucagon (Glucagen) 1 mg Q15M PRN IM DECREASED GLUCOSE; Start 01/07/17 at 23:45 Glucose (Glutose) 15 gm Q15M PRN BUCCAL DECREASED GLUCOSE; Start 01/07/17 at 23: 45 Miscellaneous Information (Pending [facility] Order For Wound Care) This patient lopez... PRN PRN XX WOUND CARE; Start 01/08/17 at 07:30 Insulin Aspart (Novolog Insulin Pen) NOVOLOG *MILD* ALGORI... Q6 SC Last administered on 01/25/17 12:24; Admin Dose 1 UNIT; Start 01/08/17 at 12:00 Heparin Sodium (Porcine) (Heparin (5000 Units/0.5 ml)) 5,000 unit BID SC Last administered on 01/26/17 08:46; Admin Dose 5,000 UNIT; Start 01/10/17 at 21:00 Lorazepam 1 mg 1 mg Q6H PRN PO Agitation Last administered on 01/19/17 08:10; Admin Dose 1 MG; Start 01/10/17 at 13:30; Status Future Hold Midazolam HCl (Versed) 50 ml @ 1 mls/hr TITRATE IV ; Start 01/11/17 at 11:00 Escitalopram Oxalate 10 mg 10 mg DAILY GTB Last administered on 01/26/17 08:45 ; Admin Dose 10 MG; Start 01/13/17 at 09:00 Norepinephrine/ Dextrose (Levophed/D5W) 500 ml @ 1.87 mls/hr TITRATE IV Last administered on 01/24/17 18:18; Admin Dose 9.37 MLS/HR; Start 01/15/17 at 23:45 Midodrine (Proamatine) 10 mg BID@09,17 NGT Last administered on 01/26/17 08:45 ; Admin Dose 10 MG; Start 01/18/17 at 09:00 Oxycodone HCl (Roxicodone) 5 mg Q4H PRN PO PAIN Last administered on 01/23/17 04:59; Admin Dose 5 MG; Start 01/18/17 at 12:00 IV Flush (NS 10 ml) 10 ml PRN PRN IV IV PROTOCOL; Start 01/19/17 at 17:00 Metronidazole (Flagyl) 500 mg Q8 NGT Last administered on 01/26/17 05:28; Admin Dose 500 MG; Start 01/23/17 at 14:00 Assessment/Plan Chief Complaint/Hosp Course 1 IMP: 1. Acute on chronic hypoxemic respiratory failure possible component of worsening volume overload in addition to pneumonia. Questionable aspergillus infection given thick mucoid secretions. IgE less than 200. Not consistent with ABPA. Will await coccidiomycosis serology, 2. UTI 3. VDRF 4. ESRD on HD status post hemodialysis 5. Anemia likely secondary to underlying renal disease 6. Shock likely combination of sepsis and hypovolemia 7. Persistent hypoxemia compensated by intracardiac shunt on echocardiogram. RECS: 1. Decrease FiO2 and PEEP as tolerated. 2. Continue pulmonary toilet, not for bronchoscopy at present. 3. Continue hemodialysis with volume removal 4. continue antibiotics per ID, check IgE and aspergillus precipitants results were pending, coccidiomycosis pending, will repeat CT angiogram. 5. continue Mucomyst 6. Continue pain control and medications for anxiety. 7. Decrease Levophed as tolerated. Goal for map of 60 8. Cardiac recommendations, discussed echocardiogram findings may require closure of shunt. Critical care time 40 minutes Discussed with primary care team and agree with transfer to tertiary care facility if possible. Problems: RHONDA BUENROSTRO MD, [facility] Jan 26, 2017 11:20
--- NOTE | 2017-01-26 14:25 | CONS ---
Date/Time of Note Date/Time of Note DATE: 01/26/17 TIME: 14:23 Assessment/Plan Assessment/Plan Chief Complaint/Hosp Course No acute changes, off pressors, awake looks comfortable Temperature 97.2 pulse 83 respirations 19 blood pressure 110/53 saturation 94 on 80 FiO2 WBC 10.4 H&H 8.1 and 25.1 platelets 150 neutrophils 68.4 Antibiotics: Flagyl Indwelling: PICC line trach PEG right chest permacath Allergy: Erythromycin, vancomycin Physical examination: Chronically ill-appearing elderly woman who is in no distress. Head atraumatic normocephalic, sclera nonicteric, neck is supple, tracheostomy present. Chest rise symmetrical, breath sounds diminished basis. Heart S1-S2. Abdomen soft, bowel tones present. Extremities no cyanosis Assessment: 1. Acute on chronic Hypoxemic Resp Failure secondary to shows R --> L shunting through atrium c/w PFO or ASD as per 2D echo report 2. S/p UTI 3. VDRF 4. ESRD on HD 5. Diarrhea, on empiric Flagyl Plan: Remains unchanged, stable off pressors, continue Flagyl, repeat cultures prn, follow pulmonary and cardiology recommendations Discussed with staff Problems: Consultation Date/Type/Reason Admit Date/Time Jan 07, 2017 at 12:43 Initial Consult Date 01/08/17 Type of Consultation: ID Referring Provider: YAYO EDGAR DO Exam/Review of Systems Vital Signs Vitals Vital Signs Date Time Temp Pulse Resp B/P Pulse Ox O2 Delivery O2 Flow Rate FiO2 01/26/17 13:00 87 29 105/63 89 Mechanical Ventilator 01/26/17 12:00 97.2 01/26/17 11:32 80 Intake and Output 01/25/17 01/25/17 01/26/17 14:59 22:59 06:59 Intake Total 841.86 ml 564.99 ml 500 ml Output Total 3300 ml Balance -2458.14 ml 564.99 ml 500 ml Results Result Diagram: 01/26/17 0448 01/26/17 0448 Results 24 hrs Laboratory Tests Test 01/25/17 17:46 01/26/17 00:22 01/26/17 04:48 01/26/17 05:26 Bedside Glucose 119 110 127 White Blood Count 10.4 Red Blood Count 2.87 L Hemoglobin 8.1 L Hematocrit 25.1 L Mean Corpuscular Volume 87.5 Mean Corpuscular Hemoglobin 28.2 L Mean Corpuscular Hemoglobin Concent 32.3 Red Cell Distribution Width 18.8 H Platelet Count 150 Mean Platelet Volume 13.7 H Neutrophils % 68.4 Lymphocytes % 13.7 L Monocytes % 12.8 H Eosinophils % 4.2 Basophils % 0.2 Nucleated Red Blood Cells % 0.5 H Neutrophils # 7.1 Lymphocytes # 1.4 Monocytes # 1.3 H Eosinophils # 0.4 Basophils # 0.0 Nucleated Red Blood Cells # 0.1 H Sodium Level 138 Potassium Level 4.1 Chloride Level 92 L Carbon Dioxide Level 27 Anion Gap 23 H Blood Urea Nitrogen 54 H Creatinine 1.87 H Glucose Level 119 Calcium Level 8.7 Phosphorus Level 2.3 #L Magnesium Level 1.7 Test 01/26/17 10:20 01/26/17 12:03 Lab Scanned Report REFERENCE LAB Bedside Glucose 130 Medications Medications Current Medications Acetaminophen (Tylenol Liquid) 650 mg Q4H PRN GTB PAIN OR TEMP ABOVE 38C Last administered on 01/23/17 04:56; Admin Dose 650 MG; Start 01/07/17 at 13:00 Diphenhydramine HCl (Benadryl) 25 mg Q6H PRN GTB ITCHING Last administered on 13:25; Admin Dose 25 MG; Start 01/07/17 at 13:00 Multivit/Ca Carb/ B Cmplx/FA/Prenat (Macrina-Brigitte) 1 tab DAILY GTB Last administered on 01/26/17 08:45; Admin Dose 1 TAB; Start 01/08/17 at 09:00 Ondansetron HCl (Zofran Tab) 4 mg Q4H PRN GTB NAUSEA AND/OR VOMITING Last administered on 01/23/17 13:25; Admin Dose 4 MG; Start 01/07/17 at 13:00 Miscellaneous Information 1 ea NOTE XX ; Start 01/07/17 at 23:45 Glucose (Glutose) 15 gm Q15M PRN PO DECREASED GLUCOSE; Start 01/07/17 at 23:45 Glucose (Glutose) 22.5 gm Q15M PRN PO DECREASED GLUCOSE; Start 01/07/17 at 23:45 Dextrose (D50w Syringe) 25 ml Q15M PRN IV DECREASED GLUCOSE; Start 01/07/17 at 23:45 Dextrose (D50w Syringe) 50 ml Q15M PRN IV DECREASED GLUCOSE; Start 01/07/17 at 23:45 Glucagon (Glucagen) 1 mg Q15M PRN IM DECREASED GLUCOSE; Start 01/07/17 at 23:45 Glucose (Glutose) 15 gm Q15M PRN BUCCAL DECREASED GLUCOSE; Start 01/07/17 at 23: 45 [facility]isc[facility] This patient lopez... PRN PRN XX WOUND CARE; Start 01/08/17 at 07:30 Insulin Aspart (Novolog Insulin Pen) NOVOLOG *MILD* ALGORI... Q6 SC Last administered on 01/25/17 12:24; Admin Dose 1 UNIT; Start 01/08/17 at 12:00 Heparin Sodium (Porcine) (Heparin (5000 Units/0.5 ml)) 5,000 unit BID SC Last administered on 01/26/17 08:46; Admin Dose 5,000 UNIT; Start 01/10/17 at 21:00 Lorazepam 1 mg 1 mg Q6H PRN PO Agitation Last administered on 01/19/17 08:10; Admin Dose 1 MG; Start 01/10/17 at 13:30; Status Future Hold Midazolam HCl (Versed) 50 ml @ 1 mls/hr TITRATE IV ; Start 01/11/17 at 11:00 Escitalopram Oxalate 10 mg 10 mg DAILY GTB Last administered on 01/26/17 08:45 ; Admin Dose 10 MG; Start 01/13/17 at 09:00 Norepinephrine/ Dextrose (Levophed/D5W) 500 ml @ 1.87 mls/hr TITRATE IV Last administered on 01/24/17 18:18; Admin Dose 9.37 MLS/HR; Start 01/15/17 at 23:45 Midodrine (Proamatine) 10 mg BID@09,17 NGT Last administered on 01/26/17 08:45 ; Admin Dose 10 MG; Start 01/18/17 at 09:00 Oxycodone HCl (Roxicodone) 5 mg Q4H PRN PO PAIN Last administered on 01/23/17 04:59; Admin Dose 5 MG; Start 01/18/17 at 12:00 IV Flush (NS 10 ml) 10 ml PRN PRN IV IV PROTOCOL; Start 01/19/17 at 17:00 Metronidazole (Flagyl) 500 mg Q8 NGT Last administered on 01/26/17t 13:19; Admin Dose 500 MG; Start 01/23/17 at 14:00 AI FUNEZ NP Jan 26, 2017 14:24
[2017-01-27] VITALS (46 sets, daily range): BP systolic 89–146; BP diastolic 49–100; PULSE 60–121; RESP 0–29
[2017-01-27] MEDS: IPRATROPIUM (HFA) 12.9 GM INHALER INH SCH ×4 (02:33→19:46)
[2017-01-27] MEDS: ALBUTEROL 18 GM INHALER INH SCH ×4 (02:33→19:46)
[2017-01-27 04:58] LABS: ADD SCAN DIFF NO
[2017-01-27 05:15] LABS: BASOPHILS % 0.2 % (0.0-2.0); EOSINOPHILS # 0.4 10^3/ul (0.0-0.5); EOSINOPHILS % 3.5 % (0.0-7.0); HEMATOCRIT 25.1 % (37.0-47.0); HEMOGLOBIN 8.1 g/dl (12.0-16.0); LYMPHOCYTES % 16.4 % (15.0-51.0); MEAN CORPUSCULAR HEMOGLOBIN 28.1 pg (29.0-33.0); MEAN CORPUSCULAR HGB CONC 32.3 g/dl (32.0-37.0); MEAN CORPUSCULAR VOLUME 87.2 fl (82.0-101.0); MEAN PLATELET VOLUME 13.5 fl (7.4-10.4); MONOCYTE # 1.4 10^3/ul (0.3-0.9); MONOCYTES % 11.2 % (0.0-11.0); NEUTROPHIL # 8.2 10^3/ul (1.6-7.5); NEUTROPHILS % 67.5 % (39.0-77.0); NUCLEATED RED BLOOD CELLS # 0.1 10^3/ul (0.0-0.0); PLATELET COUNT 198 10^3/UL (140-415); RED BLOOD COUNT 2.88 10^6/ul (4.20-5.40); RED CELL DISTRIBUTION WIDTH 18.7 % (11.5-14.5); WHITE BLOOD COUNT 12.2 10^3/ul (4.8-10.8)
[2017-01-27 05:16] LABS: ABNORMAL IP MESSAGE 1
[2017-01-27 05:30] LABS: CALCIUM 8.7 mg/dl (8.4-10.2); CREATININE 2.56 mg/dl (0.44-1.00); MAGNESIUM 1.7 mg/dl (1.7-2.5); POTASSIUM 4.2 mmol/L (3.5-5.1)
[2017-01-27] MEDS: metroNIDAZOLE 500 MG TAB NGT SCH ×3 (05:55→21:20)
[2017-01-27] MEDS: INSULIN ASPART [NOVOLOG] 3 ML PEN SC SCH ×3 (05:56→17:22)
--- NOTE | 2017-01-27 08:22 | PN ---
Date/Time of Note Date/Time of Note DATE: 01/27/17 TIME: 08:19 Assessment/Plan Lines/Catheters IV Catheter Type (from [facility]): PICC Line Urinary Cath still in place: No Assessment/Plan Chief Complaint/Hosp Course 1. hypoxemic respiratory failure. etiology likely multifactorial, chf, ? pna,, patent PFO/ASD causing right to left cardiac shunt -CT angios showed interstitial edema pulmonary edema, no evidence of PE -2D echo shows a right to left cardiac shunt possibly from PFO, versus asd -Discussed case with skein inspector, recommends transfer to a higher level of care to determine if shunt needs to be closed and for continuous monitoring via [place]-Andrew catheter of pulmonary pressure FiO2 remains high plan -Continue volume removal with dialysis as hemodynamically tolerated -Follow-up with pulmonary -Attempting transferred to [facility] -Monitor 2. Sepsis status post shock ,secondary to UTI, pneumonia -Cultures have been reviewed -Patient off pressors , continue broad-spectrum antibiotics Follow-up with infectious disease 3. Encephalopathy, acute. Etiology is likely secondary to toxic metabolic -Mental status appears to be improving continue to monitor 4. Dysphagia, status post percutaneous endoscopic gastrostomy. -Continue tube feeding. 5. ESRD -HD today 7. Atrial fibrillation, currently rate controlled. Continue medical management. -Off anticoagulation secondary to previous bleed - Continue beta louise. We will follow up with cardiology. 8. Anemia. Continue to monitor hemoglobin and hematocrit levels. Continue Epogen -Consider blood transfusion with next hemodialysis 9. Mineral bone disease. Continue to monitor calcium and phosphorus levels. We will give potassium phosphate 10. History of breast cancer status post bilateral mastectomy. 11. Congestive heart failure. Continue medical management. 12. Diabetes. Continue Accu-Cheks and sliding scale. 13. History of Clostridium difficile colitis, status post treatment. 14. Gastrointestinal and deep venous thrombosis prophylaxis. Continue Protonix , SCD, heparin 15. Hypernatremia Resolved -Monitor 16. Anxiety disorder. cont Lexapro Please note I spent over 35 minutes critical care time with this patient, Case was discussed with family, quality control lead and skein inspector Problems: Subjective 24 Hr Interval Summary Free Text/Dictation Patient remains critical but stable condition Remains off pressor support Dialysis pending Exam/Review of Systems Vital Signs Vitals Vital Signs Date Time Temp Pulse Resp B/P Pulse Ox O2 Delivery O2 Flow Rate FiO2 01/27/17 08:00 97.8 88 16 112/60 95 Mechanical Ventilator 01/27/17 05:39 85 Intake and Output 01/26/17 01/26/17 01/27/17 15:00 23:00 07:00 Intake Total 500 ml 500 ml 600 ml Balance 500 ml 500 ml 600 ml Exam HEENT: Head is normocephalic. NECK: Supple. HEART: Irregular LUNGS: Show diminished breath sounds at base. ABDOMEN: Soft, nontender to palpation without rebound or guarding. EXTREMITIES: Negative for clubbing, cyanosis. DERMATOLOGIC: No rashes. MUSCULOSKELETAL: No joint effusions, NEUROLOGIC: No change in exam. Results Result Diagram: 01/27/17 0450 01/27/17 0450 Results 24 hrs Laboratory Tests Test 01/26/17 10:20 01/26/17 12:03 01/26/17 18:44 01/26/17 23:47 Lab Scanned Report REFERENCE LAB Bedside Glucose 130 126 113 Test 01/27/17 04:50 01/27/17 05:54 01/27/17 08:08 White Blood Count 12.2 H Red Blood Count 2.88 L Hemoglobin 8.1 L Hematocrit 25.1 L Mean Corpuscular Volume 87.2 Mean Corpuscular Hemoglobin 28.1 L Mean Corpuscular Hemoglobin Concent 32.3 Red Cell Distribution Width 18.7 H Platelet Count 198 # Mean Platelet Volume 13.5 H Neutrophils % 67.5 Lymphocytes % 16.4 Monocytes % 11.2 H Eosinophils % 3.5 Basophils % 0.2 Neutrophils # 8.2 H Lymphocytes # 2.0 Monocytes # 1.4 H Eosinophils # 0.4 Basophils # 0.0 Nucleated Red Blood Cells # 0.1 H Sodium Level 137 Potassium Level 4.2 Chloride Level 92 L Carbon Dioxide Level 27 Anion Gap 22 H Blood Urea Nitrogen 73 H Creatinine 2.56 H Glucose Level 126 Calcium Level 8.7 Phosphorus Level 2.0 L Magnesium Level 1.7 Bedside Glucose 122 146 Medications Medications Current Medications Acetaminophen (Tylenol Liquid) 650 mg Q4H PRN GTB PAIN OR TEMP ABOVE 38C Last administered on 01/23/17 04:56; Admin Dose 650 MG; Start 01/07/17 at 13:00 Diphenhydramine HCl (Benadryl) 25 mg Q6H PRN GTB ITCHING Last administered on 13:25; Admin Dose 25 MG; Start 01/07/17 at 13:00 Multivit/Ca Carb/ B Cmplx/FA/Prenat (Macrina-Brigitte) 1 tab DAILY GTB Last administered on 01/26/17 08:45; Admin Dose 1 TAB; Start 01/08/17 at 09:00 Ondansetron HCl (Zofran Tab) 4 mg Q4H PRN GTB NAUSEA AND/OR VOMITING Last administered on 01/23/17 13:25; Admin Dose 4 MG; Start 01/07/17 at 13:00 Miscellaneous Information 1 ea NOTE XX ; Start 01/07/17 at 23:45 Glucose (Glutose) 15 gm Q15M PRN PO DECREASED GLUCOSE; Start 01/07/17 at 23:45 Glucose (Glutose) 22.5 gm Q15M PRN PO DECREASED GLUCOSE; Start 01/07/17 at 23:45 Dextrose (D50w Syringe) 25 ml Q15M PRN IV DECREASED GLUCOSE; Start 01/07/17 at 23:45 Dextrose (D50w Syringe) 50 ml Q15M PRN IV DECREASED GLUCOSE; Start 01/07/17 at 23:45 Glucagon (Glucagen) 1 mg Q15M PRN IM DECREASED GLUCOSE; Start 01/07/17 at 23:45 Glucose (Glutose) 15 gm Q15M PRN BUCCAL DECREASED GLUCOSE; Start 01/07/17 at 23: 45 Miscellaneous Information (Pending [facility] Order For Wound Care) This patient lopez... PRN PRN XX WOUND CARE; Start 01/08/17 at 07:30 Insulin Aspart (Novolog Insulin Pen) NOVOLOG *MILD* ALGORI... Q6 SC Last administered on 01/25/17 12:24; Admin Dose 1 UNIT; Start 01/08/17 at 12:00 Heparin Sodium (Porcine) (Heparin (5000 Units/0.5 ml)) 5,000 unit BID SC Last administered on 01/26/17 21:22; Admin Dose 5,000 UNIT; Start 01/10/17 at 21:00 Lorazepam 1 mg 1 mg Q6H PRN PO Agitation Last administered on 01/19/17 08:10; Admin Dose 1 MG; Start 01/10/17 at 13:30; Status Future Hold Midazolam HCl (Versed) 50 ml @ 1 mls/hr TITRATE IV ; Start 01/11/17 at 11:00 Escitalopram Oxalate 10 mg 10 mg DAILY GTB Last administered on 01/26/17 08:45 ; Admin Dose 10 MG; Start 01/13/17 at 09:00 Norepinephrine/ Dextrose (Levophed/D5W) 500 ml @ 1.87 mls/hr TITRATE IV Last administered on 01/24/17 18:18; Admin Dose 9.37 MLS/HR; Start 01/15/17 at 23:45 Midodrine (Proamatine) 10 mg BID@,17 NGT Last administered on 01/26/17 18:45 ; Admin Dose 10 MG; Start 01/18/17 at 09:00 Oxycodone HCl (Roxicodone) 5 mg Q4H PRN PO PAIN Last administered on 01/23/17 04:59; Admin Dose 5 MG; Start 01/18/17 at 12:00 IV Flush (NS 10 ml) 10 ml PRN PRN IV IV PROTOCOL; Start 01/19/17 at 17:00 Metronidazole (Flagyl) 500 mg Q8 NGT Last administered on 01/27/17 05:55; Admin Dose 500 MG; Start 01/23/17 at 14:00 CHARLIE BUSBY DO Jan 27, 2017 08:22
[2017-01-27] MEDS: ESCITALOPRAM 10 MG TAB GTB SCH (09:13)
[2017-01-27] MEDS: RISEDRONATE 5 MG TAB GTB SCH (09:13)
[2017-01-27] MEDS: MULTIVIT/CA CARB/B CMPLX/FA TAB GTB SCH (09:13)
[2017-01-27] MEDS: MIDODRINE 5 MG TAB NGT SCH ×2 (09:13→17:21)
[2017-01-27] MEDS: LANSOPRAZOLE 30 MG CAP GTB SCH (09:13)
[2017-01-27] MEDS: HEPARIN 5,000 UNIT/0.5 ML VIAL SC SCH ×2 (09:22→21:21)
[2017-01-27] MEDS ORDERED: POTASSIUM PHOSPHATE 20 MEQ in SOD CHLORIDE 0.9% 250 ML IVPB ONE (10:00)
[2017-01-27] MEDS: oxyCODONE 5 MG TAB PO PRN ×2 (10:34→18:52)
[2017-01-27] MEDS: DIPHENHYDRAMINE 25 MG CAP GTB PRN ×3 (10:56→21:20)
--- NOTE | 2017-01-27 11:45 | CONS ---
Date/Time of Note Date/Time of Note DATE: 01/27/17 TIME: 11:44 Consult Date/Type/Reason Admit Date/Time Jan 07, 2017 at 12:43 Initial Consult Date 01/08/17 Type of Consultation: Pulmonary Ordering Provider: YAYO EDGAR DO Subjective Oxygen requirements continue to fluctuate. Patient has not been stable for CT scan. FiO2 of 90% with a PEEP of 12. Objective Vital Signs Date Time Temp Pulse Resp B/P Pulse Ox O2 Delivery O2 Flow Rate FiO2 01/27/17 11:18 91 25 93 85 01/27/17 08:00 97.8 112/60 Mechanical Ventilator Intake and Output 01/26/17 01/26/17 01/27/17 15:00 23:00 07:00 Intake Total 500 ml 500 ml 600 ml Balance 500 ml 500 ml 600 ml Exam GENERAL: Comfortable on mechanical ventilation opens eyes to questions. VITAL SIGNS: per chart NECK: Supple. No JVD or lymphadenopathy. CARDIAC EXAM: S1, S2. No added sounds or murmurs. CHEST: clear bilaterally, No added sounds, rales or wheezes ABDOMEN: Diminished air entry bilaterally no rales wheezes EXTREMITIES: No cyanosis, clubbing or edema. NEUROLOGIC: Generalized weakness. No focal deficits. Results/Medications Result Diagram: 01/27/17 0450 01/27/17 0450 Results 24 hrs Laboratory Tests Test 01/26/17 12:03 01/26/17 18:44 01/26/17 23:47 01/27/17 04:50 Bedside Glucose 130 126 113 White Blood Count 12.2 H Red Blood Count 2.88 L Hemoglobin 8.1 L Hematocrit 25.1 L Mean Corpuscular Volume 87.2 Mean Corpuscular Hemoglobin 28.1 L Mean Corpuscular Hemoglobin Concent 32.3 Red Cell Distribution Width 18.7 H Platelet Count 198 # Mean Platelet Volume 13.5 H Neutrophils % 67.5 Lymphocytes % 16.4 Monocytes % 11.2 H Eosinophils % 3.5 Basophils % 0.2 Neutrophils # 8.2 H Lymphocytes # 2.0 Monocytes # 1.4 H Eosinophils # 0.4 Basophils # 0.0 Nucleated Red Blood Cells # 0.1 H Sodium Level 137 Potassium Level 4.2 Chloride Level 92 L Carbon Dioxide Level 27 Anion Gap 22 H Blood Urea Nitrogen 73 H Creatinine 2.56 H Glucose Level 126 Calcium Level 8.7 Phosphorus Level 2.0 L Magnesium Level 1.7 Test 01/27/17 05:54 01/27/17 08:08 01/27/17 10:10 Bedside Glucose 122 146 Lab Scanned Report REFERENCE LAB Medications Current Medications Acetaminophen (Tylenol Liquid) 650 mg Q4H PRN GTB PAIN OR TEMP ABOVE 38C Last administered on 01/23/17 04:56; Admin Dose 650 MG; Start 01/07/17 at 13:00 Diphenhydramine HCl (Benadryl) 25 mg Q6H PRN GTB ITCHING Last administered on 10:56; Admin Dose 25 MG; Start 01/07/17 at 13:00 Multivit/Ca Carb/ B Cmplx/FA/Prenat (Macrina-Brigitte) 1 tab DAILY GTB Last administered on 01/27/17 09:13; Admin Dose 1 TAB; Start 01/08/17 at 09:00 Ondansetron HCl (Zofran Tab) 4 mg Q4H PRN GTB NAUSEA AND/OR VOMITING Last administered on 01/23/17 13:25; Admin Dose 4 MG; Start 01/07/17 at 13:00 Miscellaneous Information 1 ea NOTE XX ; Start 01/07/17 at 23:45 Glucose (Glutose) 15 gm Q15M PRN PO DECREASED GLUCOSE; Start 01/07/17 at 23:45 Glucose (Glutose) 22.5 gm Q15M PRN PO DECREASED GLUCOSE; Start 01/07/17 at 23:45 Dextrose (D50w Syringe) 25 ml Q15M PRN IV DECREASED GLUCOSE; Start 01/07/17 at 23:45 Dextrose (D50w Syringe) 50 ml Q15M PRN IV DECREASED GLUCOSE; Start 01/07/17 at 23:45 Glucagon (Glucagen) 1 mg Q15M PRN IM DECREASED GLUCOSE; Start 01/07/17 at 23:45 Glucose (Glutose) 15 gm Q15M PRN BUCCAL DECREASED GLUCOSE; Start 01/07/17 at 23: 45 Miscellaneous Information (Pending [facility] Order For Wound Care) This patient lopez... PRN PRN XX WOUND CARE; Start 01/08/17 at 07:30 Insulin Aspart (Novolog Insulin Pen) NOVOLOG *MILD* ALGORI... Q6 SC Last administered on 01/25/17 12:24; Admin Dose 1 UNIT; Start 01/08/17 at 12:00 Heparin Sodium (Porcine) (Heparin (5000 Units/0.5 ml)) 5,000 unit BID SC Last administered on 01/27/17 09:22; Admin Dose 5,000 UNIT; Start 01/10/17 at 21:00 Lorazepam 1 mg 1 mg Q6H PRN PO Agitation Last administered on 01/19/17 08:10; Admin Dose 1 MG; Start 01/10/17 at 13:30; Status Future Hold Midazolam HCl (Versed) 50 ml @ 1 mls/hr TITRATE IV ; Start 01/11/17 at 11:00 Escitalopram Oxalate 10 mg 10 mg DAILY GTB Last administered on 01/27/17 09:13 ; Admin Dose 10 MG; Start 01/13/17 at 09:00 Norepinephrine/ Dextrose (Levophed/D5W) 500 ml @ 1.87 mls/hr TITRATE IV Last administered on 01/24/17 18:18; Admin Dose 9.37 MLS/HR; Start 01/15/17 at 23:45 Midodrine (Proamatine) 10 mg BID@09,17 NGT Last administered on 01/27/17 09:13 ; Admin Dose 10 MG; Start 01/18/17 at 09:00 Oxycodone HCl (Roxicodone) 5 mg Q4H PRN PO PAIN Last administered on 01/27/17 10:34; Admin Dose 5 MG; Start 01/18/17 at 12:00 IV Flush (NS 10 ml) 10 ml PRN PRN IV IV PROTOCOL; Start 01/19/17 at 17:00 Metronidazole 500 mg 500 mg Q8 NGT Last administered on 01/27/17 05:55; Admin Dose 500 MG; Start 01/23/17 at 14:00 Potassium Phosphate/Sodium Chloride (K Phos (Meq)/NS) 254.5455 ml @ 63.636 m... ONCE ONCE IVPB Last administered on 01/27/17 10:41; Admin Dose 63.636 MLS/HR; Start 01/27/17 at 10:00; Stop 01/27/17 at 13:59 Assessment/Plan Chief Complaint/Hosp Course 1 IMP: 1. Acute on chronic hypoxemic respiratory failure possible component of worsening volume overload in addition to pneumonia. Questionable aspergillus infection given thick mucoid secretions. IgE less than 200. Not consistent with ABPA. Will await coccidiomycosis serology, 2. UTI 3. VDRF 4. ESRD on HD status post hemodialysis 5. Anemia likely secondary to underlying renal disease 6. Shock likely combination of sepsis and hypovolemia 7. Persistent hypoxemia compensated by intracardiac shunt on echocardiogram. RECS: 1. Decrease FiO2 and PEEP as tolerated. 2. Continue pulmonary toilet, not for bronchoscopy at present. 3. Continue hemodialysis with volume removal 4. continue antibiotics per ID, check IgE and aspergillus precipitants results were pending, coccidiomycosis pending, will repeat CT angiogram. 5. continue Mucomyst 6. Continue pain control and medications for anxiety. 7. Decrease Levophed as tolerated. Goal for map of 60 8. Cardiac recommendations, discussed echocardiogram findings may require closure of shunt. Critical care time 40 minutes Discussed with primary care team and agree with transfer to tertiary care facility if possible. Problems: RHONDA BUENROSTRO MD, [facility] Jan 27, 2017 11:45
--- NOTE | 2017-01-27 12:52 | CONS ---
Date/Time of Note Date/Time of Note DATE: 01/27/17 TIME: 12:50 Assessment/Plan Assessment/Plan Chief Complaint/Hosp Course Remains on high PEEP and high FiO2, tachypneic, in mild distress Temperature 97.8 pulse 88 respirations 16 blood pressure 112/60 saturation 93% on 85 FiO2 WBC 12.2 H&H 8.1 platelets 198 Antibiotics: Flagyl Indwelling: PICC line trach PEG right chest permacath Allergy: Erythromycin, vancomycin Physical examination: Chronically ill-appearing elderly woman who is in no distress. Head atraumatic normocephalic, sclera nonicteric, neck is supple, tracheostomy present. Chest rise symmetrical, breath sounds diminished basis. Heart S1-S2. Abdomen soft, bowel tones present. Extremities no cyanosis Assessment: 1. Acute on chronic Hypoxemic Resp Failure secondary to shows R --> L shunting through atrium c/w PFO or ASD as per 2D echo report 2. S/p UTI 3. VDRF 4. ESRD on HD 5. Diarrhea, on empiric Flagyl Plan: Remains unchanged, continue present care, vent management per pulmonary, cardiology recommendations, repeat cultures prn, pending transfer to [facility] Discussed with staff Problems: Consultation Date/Type/Reason Admit Date/Time Jan 07, 2017 at 12:43 Initial Consult Date 01/08/17 Type of Consultation: id Referring Provider: YAYO EDGAR DO Exam/Review of Systems Vital Signs Vitals Vital Signs Date Time Temp Pulse Resp B/P Pulse Ox O2 Delivery O2 Flow Rate FiO2 01/27/17 11:50 100 01/27/17 11:18 91 25 93 01/27/17 08:00 97.8 112/60 Mechanical Ventilator Intake and Output 01/26/17 01/26/17 01/27/17 15:00 23:00 07:00 Intake Total 500 ml 500 ml 600 ml Balance 500 ml 500 ml 600 ml Results Result Diagram: 01/27/17 0450 01/27/17 0450 Results 24 hrs Laboratory Tests Test 01/26/17 18:44 01/26/17 23:47 01/27/17 04:50 01/27/17 05:54 Bedside Glucose 126 113 122 White Blood Count 12.2 H Red Blood Count 2.88 L Hemoglobin 8.1 L Hematocrit 25.1 L Mean Corpuscular Volume 87.2 Mean Corpuscular Hemoglobin 28.1 L Mean Corpuscular Hemoglobin Concent 32.3 Red Cell Distribution Width 18.7 H Platelet Count 198 # Mean Platelet Volume 13.5 H Neutrophils % 67.5 Lymphocytes % 16.4 Monocytes % 11.2 H Eosinophils % 3.5 Basophils % 0.2 Neutrophils # 8.2 H Lymphocytes # 2.0 Monocytes # 1.4 H Eosinophils # 0.4 Basophils # 0.0 Nucleated Red Blood Cells # 0.1 H Sodium Level 137 Potassium Level 4.2 Chloride Level 92 L Carbon Dioxide Level 27 Anion Gap 22 H Blood Urea Nitrogen 73 H Creatinine 2.56 H Glucose Level 126 Calcium Level 8.7 Phosphorus Level 2.0 L Magnesium Level 1.7 Test 01/27/17 08:08 01/27/17 10:10 01/27/17 12:04 Bedside Glucose 146 183 Lab Scanned Report REFERENCE LAB Medications Medications Current Medications Acetaminophen (Tylenol Liquid) 650 mg Q4H PRN GTB PAIN OR TEMP ABOVE 38C Last administered on 01/23/17 04:56; Admin Dose 650 MG; Start 01/07/17 at 13:00 Diphenhydramine HCl (Benadryl) 25 mg Q6H PRN GTB ITCHING Last administered on 10:56; Admin Dose 25 MG; Start 01/07/17 at 13:00 Multivit/Ca Carb/ B Cmplx/FA/Prenat (Macrina-Brigitte) 1 tab DAILY GTB Last administered on 01/27/17 09:13; Admin Dose 1 TAB; Start 01/08/17 at 09:00 Ondansetron HCl (Zofran Tab) 4 mg Q4H PRN GTB NAUSEA AND/OR VOMITING Last administered on 01/23/17 13:25; Admin Dose 4 MG; Start 01/07/17 at 13:00 Miscellaneous Information 1 ea NOTE XX ; Start 01/07/17 at 23:45 Glucose (Glutose) 15 gm Q15M PRN PO DECREASED GLUCOSE; Start 01/07/17 at 23:45 Glucose (Glutose) 22.5 gm Q15M PRN PO DECREASED GLUCOSE; Start 01/07/17 at 23:45 Dextrose (D50w Syringe) 25 ml Q15M PRN IV DECREASED GLUCOSE; Start 01/07/17 at 23:45 Dextrose (D50w Syringe) 50 ml Q15M PRN IV DECREASED GLUCOSE; Start 01/07/17 at 23:45 Glucagon (Glucagen) 1 mg Q15M PRN IM DECREASED GLUCOSE; Start 01/07/17 at 23:45 Glucose (Glutose) 15 gm Q15M PRN BUCCAL DECREASED GLUCOSE; Start 01/07/17 at 23: 45 Miscellaneous Information (Pending [facility] Order For Wound Care) This patient lopez... PRN PRN XX WOUND CARE; Start 01/08/17 at 07:30 Insulin Aspart (Novolog Insulin Pen) NOVOLOG *MILD* ALGORI... Q6 SC Last administered on 01/27/17 12:09; Admin Dose 2 UNIT; Start 01/08/17 at 12:00 Heparin Sodium (Porcine) (Heparin (5000 Units/0.5 ml)) 5,000 unit BID SC Last administered on 01/27/17 09:22; Admin Dose 5,000 UNIT; Start 01/10/17 at 21:00 Lorazepam 1 mg 1 mg Q6H PRN PO Agitation Last administered on 01/19/17 08:10; Admin Dose 1 MG; Start 01/10/17 at 13:30; Status Future Hold Midazolam HCl (Versed) 50 ml @ 1 mls/hr TITRATE IV ; Start 01/11/17 at 11:00 Escitalopram Oxalate 10 mg 10 mg DAILY GTB Last administered on 01/27/17 09:13 ; Admin Dose 10 MG; Start 01/13/17 at 09:00 Norepinephrine/ Dextrose (Levophed/D5W) 500 ml @ 1.87 mls/hr TITRATE IV Last administered on 01/24/17 18:18; Admin Dose 9.37 MLS/HR; Start 01/15/17 at 23:45 Midodrine (Proamatine) 10 mg BID@09,17 NGT Last administered on 01/27/17 09:13 ; Admin Dose 10 MG; Start 01/18/17 at 09:00 Oxycodone HCl (Roxicodone) 5 mg Q4H PRN PO PAIN Last administered on 01/27/17 10:34; Admin Dose 5 MG; Start 01/18/17 at 12:00 IV Flush (NS 10 ml) 10 ml PRN PRN IV IV PROTOCOL; Start 01/19/17 at 17:00 Metronidazole 500 mg 500 mg Q8 NGT Last administered on 01/27/17 05:55; Admin Dose 500 MG; Start 01/23/17 at 14:00 Potassium Phosphate/Sodium Chloride (K Phos (Meq)/NS) 254.5455 ml @ 63.636 m... ONCE ONCE IVPB Last administered on 01/27/17t 10:41; Admin Dose 63.636 MLS/HR; Start 01/27/17 at 10:00; Stop 01/27/17 at 13:59 AI FUNEZ NP Jan 27, 2017 12:51
--- NOTE | 2017-01-27 15:21 | PN ---
Date/Time of Note Date/Time of Note DATE: 01/27/17 TIME: 15:18 Assessment/Plan VTE Prophylaxis VTE Prophylaxis Intervention: other Lines/Catheters IV Catheter Type (from Nrs): PICC Line Central line still needed: Yes Urinary Cath still in place: No Reason Cath still needed: other (indicate) Assessment/Plan Chief Complaint/Hosp Course A/P: 1. acute on chronic hypoxemic hypercapnic respiratory failure: s/p trach: vent dep. still with severe hypoxemia. intermittently requiring [id number]% O2 and difficult to oxygenate. 2. Pafib; currently remains in NSR: off of amiodarone now 3. HX Sick sinus syndrome: s/p PPM: pacemaker was interrogated and personally reviewed on 01/08/17 with normal functioning pacemaker. 4. pneumonia 5. ESRD on HD 6. HX HTN: stable now 7. severe anemia: s/p multiple transfusion 8. severe hypoxemia 9. SHOCK: septic shock and still on levophed drip 10. pulmonary HTN: PA pressure about 75 mmHg on echo 11. evidence of R ---> L shunting on echo with bubble study c/ w PFO/ ASD cont vent support not anticoagulated due to concerns about bleeding and severe anemia. abx as per IM/ ID and pulm team CT pulm angio was negative for PE. CONT aggressive HD HR has remained stable. Will monitor on tele correct lytes prn transfusion prn Off of AMIODARONE due to severe hypoxemia, specially since pt has remained in NSR. cont ICU care I have also d/w Dr Sullivan (pt's previous butter melter). no previous reports of any work up for ASD. PFO in the past has been reported to me more than 37 minutes of critical care time was spent in management and treatment of this critically ill pt, excluding any procedures. Problems: Subjective 24 Hr Interval Summary Free Text/Dictation CARDIOLOGY FOLLOW UP PROGRESS NOTE/ ICU NOTE: SUBJECTIVE: d/w staff and rhythm was reviewed. pt remains in NSR. no afib noted. pt still with severe hypoxemia and currently on 85% O2 now pt is still s/p trach on vent in ICU but was able to be weaned off of levophed drip. pt with no chest pain. d/w daughter d/ w multiple physicians. OBJECTIVE. General: s/p trach on vent. in no distress HEENT: NC/AT. pupils are equal. round. NECK: s/p trach. no stridor. CV: RRR. systolic murmur; no gallop or rubs. PULM: no wheezing but + rhonchi anteriorly diffusely GI: SOFT, NT, ND, no rebound or guarding . s/p PEG Extremity: trace B/L LE edema. no clubbing. neuro: drowsy. Psych: calm, pleasant rectal: deferred Derm: + echymosis chest: s/p R mastectomy and HD ACCESS in place. echo 01/24/17 reviewed personally: 1. Normal left ventricular systolic function. Normal left ventricular cavity size. Mild concentric left ventricular hypertrophy. Ejection fraction is visually estimated at 55 %. Tissue Doppler/Mitral Doppler indices are consistent with impaired relaxation (Stage I diastolic dysfunction). 2. There is mild enlargement of left atrium. 3. There is mild enlargement of right atrium. 4. Mild mitral leaflet calcification. Mild mitral annular calcification. Trace mitral regurgitation. 5. Aortic sclerosis without stenosis. Mild aortic valve regurgitation. 6. Normal appearance of the tricuspid valve. Estimated peak PA systolic pressure 75 mmHg. There is moderate tricuspid regurgitation. 7. severe pulm HTN. 8. Inferior vena cava without respiratory collapse, however, patient on ventilator. 9. Normal pericardium with no significant pericardial effusion. 10. agitated saline ( bubble study) shows R --> L shunting through atrium c/w PFO or ASD. Exam/Review of Systems Vital Signs Vitals Vital Signs Date Time Temp Pulse Resp B/P Pulse Ox O2 Delivery O2 Flow Rate FiO2 01/27/17 13:49 85 21 99 100 01/27/17 13:00 115/100 Mechanical Ventilator 01/27/17 12:00 97.6 Intake and Output 01/26/17 01/26/17 01/27/17 15:00 23:00 07:00 Intake Total 500 ml 500 ml 600 ml Balance 500 ml 500 ml 600 ml Results Result Diagram: 01/27/17 0450 01/27/17 0450 Results 24 hrs Laboratory Tests Test 01/26/17 18:44 01/26/17 23:47 01/27/17 04:50 01/27/17 05:54 Bedside Glucose 126 113 122 White Blood Count 12.2 H Red Blood Count 2.88 L Hemoglobin 8.1 L Hematocrit 25.1 L Mean Corpuscular Volume 87.2 Mean Corpuscular Hemoglobin 28.1 L Mean Corpuscular Hemoglobin Concent 32.3 Red Cell Distribution Width 18.7 H Platelet Count 198 # Mean Platelet Volume 13.5 H Neutrophils % 67.5 Lymphocytes % 16.4 Monocytes % 11.2 H Eosinophils % 3.5 Basophils % 0.2 Neutrophils # 8.2 H Lymphocytes # 2.0 Monocytes # 1.4 H Eosinophils # 0.4 Basophils # 0.0 Nucleated Red Blood Cells # 0.1 H Sodium Level 137 Potassium Level 4.2 Chloride Level 92 L Carbon Dioxide Level 27 Anion Gap 22 H Blood Urea Nitrogen 73 H Creatinine 2.56 H Glucose Level 126 Calcium Level 8.7 Phosphorus Level 2.0 L Magnesium Level 1.7 Test 01/27/17 08:08 01/27/17 10:10 01/27/17 12:04 Bedside Glucose 146 183 Lab Scanned Report REFERENCE LAB Medications Medications Current Medications Acetaminophen (Tylenol Liquid) 650 mg Q4H PRN GTB PAIN OR TEMP ABOVE 38C Last administered on 01/23/17 04:56; Admin Dose 650 MG; Start 01/07/17 at 13:00 Diphenhydramine HCl (Benadryl) 25 mg Q6H PRN GTB ITCHING Last administered on 10:56; Admin Dose 25 MG; Start 01/07/17 at 13:00 Multivit/Ca Carb/ B Cmplx/FA/Prenat (Macrina-Brigitte) 1 tab DAILY GTB Last administered on 01/27/17 09:13; Admin Dose 1 TAB; Start 01/08/17 at 09:00 Ondansetron HCl (Zofran Tab) 4 mg Q4H PRN GTB NAUSEA AND/OR VOMITING Last administered on 01/23/17 13:25; Admin Dose 4 MG; Start 01/07/17 at 13:00 Miscellaneous Information 1 ea NOTE XX ; Start 01/07/17 at 23:45 Glucose (Glutose) 15 gm Q15M PRN PO DECREASED GLUCOSE; Start 01/07/17 at 23:45 Glucose (Glutose) 22.5 gm Q15M PRN PO DECREASED GLUCOSE; Start 01/07/17 at 23:45 Dextrose (D50w Syringe) 25 ml Q15M PRN IV DECREASED GLUCOSE; Start 01/07/17 at 23:45 Dextrose (D50w Syringe) 50 ml Q15M PRN IV DECREASED GLUCOSE; Start 01/07/17 at 23:45 Glucagon (Glucagen) 1 mg Q15M PRN IM DECREASED GLUCOSE; Start 01/07/17 at 23:45 Glucose (Glutose) 15 gm Q15M PRN BUCCAL DECREASED GLUCOSE; Start 01/07/17 at 23: 45 Miscellaneous Information (Pending [facility] Order For Wound Care) This patient lopez... PRN PRN XX WOUND CARE; Start 01/08/17 at 07:30 Insulin Aspart (Novolog Insulin Pen) NOVOLOG *MILD* ALGORI... Q6 SC Last administered on 01/27/17 12:09; Admin Dose 2 UNIT; Start 01/08/17 at 12:00 Heparin Sodium (Porcine) (Heparin (5000 Units/0.5 ml)) 5,000 unit BID SC Last administered on 01/27/17 09:22; Admin Dose 5,000 UNIT; Start 01/10/17 at 21:00 Lorazepam 1 mg 1 mg Q6H PRN PO Agitation Last administered on 01/19/17 08:10; Admin Dose 1 MG; Start 01/10/17 at 13:30; Status Future Hold Midazolam HCl (Versed) 50 ml @ 1 mls/hr TITRATE IV ; Start 01/11/17 at 11:00 Escitalopram Oxalate 10 mg 10 mg DAILY GTB Last administered on 01/27/17 09:13 ; Admin Dose 10 MG; Start 01/13/17 at 09:00 Norepinephrine/ Dextrose (Levophed/D5W) 500 ml @ 1.87 mls/hr TITRATE IV Last administered on 01/24/17 18:18; Admin Dose 9.37 MLS/HR; Start 01/15/17 at 23:45 Midodrine (Proamatine) 10 mg BID@09,17 NGT Last administered on 01/27/17 09:13 ; Admin Dose 10 MG; Start 01/18/17 at 09:00 Oxycodone HCl (Roxicodone) 5 mg Q4H PRN PO PAIN Last administered on 01/27/17 10:34; Admin Dose 5 MG; Start 01/18/17 at 12:00 IV Flush (NS 10 ml) 10 ml PRN PRN IV IV PROTOCOL; Start 01/19/17 at 17:00 Metronidazole (Flagyl) 500 mg Q8 NGT Last administered on 01/27/17t 14:42; Admin Dose 500 MG; Start 01/23/17 at 14:00 KIAH GARCIA MD Jan 27, 2017 15:21
[2017-01-28] VITALS (85 sets, daily range): BP systolic 51–139; BP diastolic 37–107; PULSE 81–134; RESP 13–37
[2017-01-28] MEDS: oxyCODONE 5 MG TAB PO PRN ×2 (02:57→09:15)
[2017-01-28] MEDS: INSULIN ASPART [NOVOLOG] 3 ML PEN SC SCH ×4 (05:10→18:00)
[2017-01-28] MEDS: metroNIDAZOLE 500 MG TAB NGT SCH ×3 (05:10→23:10)
[2017-01-28] MEDS: DIPHENHYDRAMINE 25 MG CAP GTB PRN (05:10)
[2017-01-28] MEDS: IPRATROPIUM (HFA) 12.9 GM INHALER INH SCH ×4 (05:35→20:23)
[2017-01-28] MEDS: ALBUTEROL 18 GM INHALER INH SCH ×4 (05:36→20:23)
[2017-01-28 05:54] LABS: BASOPHILS % 0.2 % (0.0-2.0); EOSINOPHILS # 0.1 10^3/ul (0.0-0.5); EOSINOPHILS % 0.9 % (0.0-7.0); HEMATOCRIT 25.8 % (37.0-47.0); HEMOGLOBIN 8.1 g/dl (12.0-16.0); LYMPHOCYTES # 1.9 10^3/ul (0.8-2.9); LYMPHOCYTES % 12.5 % (15.0-51.0); MEAN CORPUSCULAR HEMOGLOBIN 27.7 pg (29.0-33.0); MEAN CORPUSCULAR HGB CONC 31.4 g/dl (32.0-37.0); MEAN CORPUSCULAR VOLUME 88.4 fl (82.0-101.0); MEAN PLATELET VOLUME 12.6 fl (7.4-10.4); MONOCYTE # 1.3 10^3/ul (0.3-0.9); MONOCYTES % 8.3 % (0.0-11.0); NEUTROPHIL # 11.6 10^3/ul (1.6-7.5); NEUTROPHILS % 76.8 % (39.0-77.0); NUCLEATED RED BLOOD CELLS # 0.2 10^3/ul (0.0-0.0); NUCLEATED RED BLOOD CELLS% 1.3 /100WBC (0.0-0.0); PLATELET COUNT 284 10^3/UL (140-415); RED BLOOD COUNT 2.92 10^6/ul (4.20-5.40); RED CELL DISTRIBUTION WIDTH 19.4 % (11.5-14.5); WHITE BLOOD COUNT 15.1 10^3/ul (4.8-10.8)
[2017-01-28 06:20] LABS: CALCIUM 8.5 mg/dl (8.4-10.2); CREATININE 2.1 mg/dl (0.44-1.00); MAGNESIUM 1.8 mg/dl (1.7-2.5); PHOSPHORUS 3.1 mg/dl (2.5-4.9); POTASSIUM 4.7 mmol/L (3.5-5.1)
[2017-01-28] MEDS: LANSOPRAZOLE 30 MG CAP GTB SCH (06:48)
[2017-01-28] MEDS: RISEDRONATE 5 MG TAB GTB SCH (06:48)
--- NOTE | 2017-01-28 08:26 | PN ---
Date/Time of Note Date/Time of Note DATE: 01/28/17 TIME: 08:24 Assessment/Plan Lines/Catheters IV C[facility]ter Type (from [facility]): PICC Line Urinary Cath still in place: No Assessment/Plan Chief Complaint/Hosp Course 1. hypoxemic respiratory failure. etiology likely multifactorial, chf, ? pna,, patent PFO/ASD causing right to left cardiac shunt -CT angios showed interstitial edema pulmonary edema, no evidence of PE -2D echo shows a right to left cardiac shunt possibly from PFO, versus asd -Discussed case with sports coordinator, recommends transfer to a higher level of care to determine if shunt needs to be closed and for continuous monitoring via [place] catheter of pulmonary pressure FiO2 remains high plan -Continue volume removal with dialysis as hemodynamically tolerated -Follow-up with pulmonary -Attempting transferred to [facility] -Monitor 2. Sepsis status post shock ,secondary to UTI, pneumonia -Cultures have been reviewed -Patient off pressors , continue broad-spectrum antibiotics Follow-up with infectious disease 3. Encephalopathy, acute. Etiology is likely secondary to toxic metabolic -Mental status appears to be improving continue to monitor 4. Dysphagia, status post percutaneous endoscopic gastrostomy. -Continue tube feeding. 5. ESRD -HD tomorrow 7. Atrial fibrillation, currently rate controlled. Continue medical management. -Off anticoagulation secondary to previous bleed - Continue beta louise. We will follow up with cardiology. 8. Anemia. Continue to monitor hemoglobin and hematocrit levels. Continue Epogen -Consider blood transfusion with next hemodialysis 9. Mineral bone disease. Continue to monitor calcium and phosphorus levels. We will give potassium phosphate 10. History of breast cancer status post bilateral mastectomy. 11. Congestive heart failure. Continue medical management. 12. Diabetes. Continue Accu-Cheks and sliding scale. 13. History of Clostridium difficile colitis, status post treatment. 14. Gastrointestinal and deep venous thrombosis prophylaxis. Continue Protonix , SCD, heparin 15. Hypernatremia Resolved -Monitor 16. Anxiety disorder. cont Lexapro Please note I spent over 35 minutes critical care time with this patient, Case was discussed with family, inspector quality assurance and sports coordinator Problems: Subjective 24 Hr Interval Summary Free Text/Dictation Patient seen and examined On FiO2 100% due to some desaturation overnight Still awaiting bed at [facility] No other events noted Exam/Review of Systems Vital Signs Vitals Vital Signs Date Time Temp Pulse Resp B/P Pulse Ox O2 Delivery O2 Flow Rate FiO2 01/28/17 07:00 97 22 94/65 93 01/28/17 04:46 100 01/28/17 04:00 99.0 Mechanical Ventilator Intake and Output 01/27/17 01/27/17 01/28/17 15:00 23:00 07:00 Intake Total 804.5455 ml 1050 ml 500 ml Output Total 3500 ml Balance -2695.4545 ml 1050 ml 500 ml Exam HEENT: Head is normocephalic, NECK: Supple. HEART: Irregular LUNGS: Show diminished breath sounds at base. ABDOMEN: Soft, nontender to palpation without rebound or guarding. EXTREMITIES: Negative for clubbing, cyanosis. DERMATOLOGIC: No rashes. MUSCULOSKELETAL: No joint effusions, NEUROLOGIC: No change in exam. Results Result Diagram: 01/28/17 0515 01/28/17 0515 Results 24 hrs Laboratory Tests Test 01/27/17 10:10 01/27/17 12:04 01/27/17 17:22 01/28/17 00:20 Lab Scanned Report REFERENCE LAB Bedside Glucose 183 113 94 Test 01/28/17 05:08 01/28/17 05:15 Bedside Glucose 98 White Blood Count 15.1 #H Red Blood Count 2.92 L Hemoglobin 8.1 L Hematocrit 25.8 L Mean Corpuscular Volume 88.4 Mean Corpuscular Hemoglobin 27.7 L Mean Corpuscular Hemoglobin Concent 31.4 L Red Cell Distribution Width 19.4 H Platelet Count 284 # Mean Platelet Volume 12.6 H Neutrophils % 76.8 Lymphocytes % 12.5 L Monocytes % 8.3 Eosinophils % 0.9 Basophils % 0.2 Nucleated Red Blood Cells % 1.3 H Neutrophils # 11.6 H Lymphocytes # 1.9 Monocytes # 1.3 H Eosinophils # 0.1 Basophils # 0.0 Nucleated Red Blood Cells # 0.2 H Sodium Level 144 Potassium Level 4.7 Chloride Level 101 Carbon Dioxide Level 24 Anion Gap 24 H Blood Urea Nitrogen 50 H Creatinine 2.10 H Glucose Level 83 # Calcium Level 8.5 Phosphorus Level 3.1 Magnesium Level 1.8 Medications Medications Current Medications Acetaminophen (Tylenol Liquid) 650 mg Q4H PRN GTB PAIN OR TEMP ABOVE 38C Last administered on 01/23/17t 04:56; Admin Dose 650 MG; Start 01/07/17 at 13:00 Diphenhydramine HCl (Benadryl) 25 mg Q6H PRN GTB ITCHING Last administered on 05:10; Admin Dose 25 MG; Start 01/07/17 at 13:00 Multivit/Ca Carb/ B Cmplx/FA/Prenat (Macrina-Brigitte) 1 tab DAILY GTB Last administered on 01/27/17 09:13; Admin Dose 1 TAB; Start 01/08/17 at 09:00 Ondansetron HCl (Zofran Tab) 4 mg Q4H PRN GTB NAUSEA AND/OR VOMITING Last administered on 01/23/17 13:25; Admin Dose 4 MG; Start 01/07/17 at 13:00 Miscellaneous Information 1 ea NOTE XX ; Start 01/07/17 at 23:45 Glucose (Glutose) 15 gm Q15M PRN PO DECREASED GLUCOSE; Start 01/07/17 at 23:45 Glucose (Glutose) 22.5 gm Q15M PRN PO DECREASED GLUCOSE; Start 01/07/17 at 23:45 Dextrose (D50w Syringe) 25 ml Q15M PRN IV DECREASED GLUCOSE; Start 01/07/17 at 23:45 Dextrose (D50w Syringe) 50 ml Q15M PRN IV DECREASED GLUCOSE; Start 01/07/17 at 23:45 Glucagon (Glucagen) 1 mg Q15M PRN IM DECREASED GLUCOSE; Start 01/07/17 at 23:45 Glucose (Glutose) 15 gm Q15M PRN BUCCAL DECREASED GLUCOSE; Start 01/07/17 at 23: 45 Miscellaneous Information (Pending [facility] Order For Wound Care) This patient lopez... PRN PRN XX WOUND CARE; Start 01/08/17 at 07:30 Insulin Aspart (Novolog Insulin Pen) NOVOLOG *MILD* ALGORI... Q6 SC Last administered on 01/27/17 12:09; Admin Dose 2 UNIT; Start 01/08/17 at 12:00 Heparin Sodium (Porcine) (Heparin (5000 Units/0.5 ml)) 5,000 unit BID SC Last administered on 01/27/17 21:21; Admin Dose 5,000 UNIT; Start 01/10/17 at 21:00 Lorazepam 1 mg 1 mg Q6H PRN PO Agitation Last administered on 01/19/17 08:10; Admin Dose 1 MG; Start 01/10/17 at 13:30; Status Future Hold Midazolam HCl (Versed) 50 ml @ 1 mls/hr TITRATE IV ; Start 01/11/17 at 11:00 Escitalopram Oxalate 10 mg 10 mg DAILY GTB Last administered on 01/27/17 09:13 ; Admin Dose 10 MG; Start 01/13/17 at 09:00 Norepinephrine/ Dextrose (Levophed/D5W) 500 ml @ 1.87 mls/hr TITRATE IV Last administered on 01/24/17 18:18; Admin Dose 9.37 MLS/HR; Start 01/15/17 at 23:45 Midodrine (Proamatine) 10 mg BID@,17 NGT Last administered on 01/27/17 17:21 ; Admin Dose 10 MG; Start 01/18/17 at 09:00 Oxycodone HCl (Roxicodone) 5 mg Q4H PRN PO PAIN Last administered on 01/28/17 02:57; Admin Dose 5 MG; Start 01/18/17 at 12:00 IV Flush (NS 10 ml) 10 ml PRN PRN IV IV PROTOCOL; Start 01/19/17 at 17:00 Metronidazole (Flagyl) 500 mg Q8 NGT Last administered on 01/28/17 05:10; Admin Dose 500 MG; Start 01/23/17 at 14:00 CHARLIE BUSBY DO Jan 28, 2017 08:26
--- NOTE | 2017-01-28 08:43 | RADRPT ---
PROCEDURE: XR Chest. CLINICAL INDICATION: See a chest TECHNIQUE: Single AP portable chest. COMPARISON: 10/12/2016 Chest x-ray FINDINGS: The cardiac silhouette is mildly enlarged but stable in size. Stable dual chamber left chest pacema ker, right dialysis catheter with tip overlying the C. Vena cava at the level of the hilum, and tra cheostomy tube in place. Right PICC line catheter tip overlying the distal superior vena cava.. A therosclerotic calcification of the aorta. Increased right pleural effusion and lower lobe airspace opacity/consolidation. The left lung is clear. No pneumothorax. The osseous structures and soft tis sues are unremarkable. IMPRESSION: 1. Increasing right base air space opacity and/or consolidation with small pleural effusion. 2. Support devices in stable and satisfactory position. 3. Cardiomegaly. . RPTAT:AAJJ Physician Mary Date Time Electronically viewed and signed by Physician Mary on 01/28/2017 08:42 ZACH/
[2017-01-28] MEDS ORDERED: NORepinephrine 8MG/250 ML (PMX 250 ML ONE ×2 (08:49→19:45)
[2017-01-28] MEDS ORDERED: PHENYLephrine 20MG IN 250 ML 250 ML ONE (09:06)
[2017-01-28 09:08] LABS: AADO2 Arterial 625.2 mmHg (7.0-24.0); Allen Test ACCEPTAB; Arterial COHb 0.3 % (0.0-3.0); Arterial Fraction of Oxyhgb 82.9 % (93.0-99.0); Arterial HCO3 21.2 mmol/L (22.0-26.0); Arterial MetHb 0.3 % (0.0-1.5); Arterial Total Hemglobin 11.8 g/dl (12.0-18.0); MODE VENT - AC
[2017-01-28] MEDS: MULTIVIT/CA CARB/B CMPLX/FA TAB GTB SCH (09:25)
[2017-01-28] MEDS: ESCITALOPRAM 10 MG TAB GTB SCH (09:25)
[2017-01-28] MEDS: MIDODRINE 5 MG TAB NGT SCH ×2 (09:27→18:00)
[2017-01-28] MEDS: HEPARIN 5,000 UNIT/0.5 ML VIAL SC SCH ×2 (09:27→23:59)
[2017-01-28] MEDS ORDERED: SOD CHLORIDE 0.9% 500 ML IV ONE ×2 (09:30→23:00)
--- NOTE | 2017-01-28 10:05 | CONS ---
Date/Time of Note Date/Time of Note DATE: 01/28/17 TIME: 10:02 Assessment/Plan Assessment/Plan Additional Assessment/Plan Ventilator setting; AC of 16, tidal volume 500, PEEP of 12, 100% FiO2. Patient currently on Levophed at 24 mics per minute. Chest x-ray was reviewed from today which is showing right lower lobe infiltrative changes. Assessment recommendations; 1. Patient admitted for severe sepsis from bilateral pneumonia. 2. Chronic renal failure, on hemodialysis. 3. Worsening hypotension, now requiring pressor administration. 4. Moderate respiratory distress. Continue current ventilator settings, antibiotics and other supportive measures. Continue Levophed. Start fentanyl for pain control. Give the patient a fluid bolus of 500 mL normal saline. Titrate pressor support. Next Prognosis is guarded. 35 minutes of critical care time was spent evaluating the patient. Consultation Date/Type/Reason Admit Date/Time Jan 07, 2017 at 12:43 Initial Consult Date 01/07/17 Type of Consultation: Pulmonary/critical care Referring Provider: YAYO EDGAR DO 24 HR Interval Summary Free Text/Dictation Patient condition remains vertical. 100% FiO2. Appearing in mild distress. Patient also has been getting progressively more hypotensive and not requiring Levophed for blood pressure maintenance. General exam; elderly woman, on ventilator via tracheostomy, awake, appears anxious. Exam/Review of Systems Vital Signs Vitals Vital Signs Date Time Temp Pulse Resp B/P Pulse Ox O2 Delivery O2 Flow Rate FiO2 01/28/17 07:00 97 22 94/65 93 01/28/17 04:46 100 01/28/17 04:00 99.0 Mechanical Ventilator Intake and Output 01/27/17 01/27/17 01/28/17 15:00 23:00 07:00 Intake Total 804.5455 ml 1050 ml 500 ml Output Total 3500 ml Balance -2695.4545 ml 1050 ml 500 ml Exam HEENT exam; supple neck, no JVD. No lymphadenopathy. Midline trachea. No thyromegaly. Tracheostomy in place. Patient has a multiple carious teeth. Chest exam; diminished but clear breath sound bilaterally. S1-S2 audible, no murmurs. Regular rhythm. There are bilateral mastectomies. Abdomen exam; soft, G-tube in place. Bowel sounds audible. No organomegaly. Nontender. Extremity exam; trace edema. TAX EXAMINER exam; patient is awake and follows simple commands. Results Result Diagram: 01/28/17 0515 01/28/17 0515 Results 24 hrs Laboratory Tests Test 01/27/17 10:10 01/27/17 12:04 01/27/17 17:22 01/28/17 00:20 Lab Scanned Report REFERENCE LAB Bedside Glucose 183 113 94 Test 01/28/17 05:08 01/28/17 05:15 01/28/17 07:42 Bedside Glucose 98 White Blood Count 15.1 #H Red Blood Count 2.92 L Hemoglobin 8.1 L Hematocrit 25.8 L Mean Corpuscular Volume 88.4 Mean Corpuscular Hemoglobin 27.7 L Mean Corpuscular Hemoglobin Concent 31.4 L Red Cell Distribution Width 19.4 H Platelet Count 284 # Mean Platelet Volume 12.6 H Neutrophils % 76.8 Lymphocytes % 12.5 L Monocytes % 8.3 Eosinophils % 0.9 Basophils % 0.2 Nucleated Red Blood Cells % 1.3 H Neutrophils # 11.6 H Lymphocytes # 1.9 Monocytes # 1.3 H Eosinophils # 0.1 Basophils # 0.0 Nucleated Red Blood Cells # 0.2 H Sodium Level 144 Potassium Level 4.7 Chloride Level 101 Carbon Dioxide Level 24 Anion Gap 24 H Blood Urea Nitrogen 50 H Creatinine 2.10 H Glucose Level 83 # Calcium Level 8.5 Phosphorus Level 3.1 Magnesium Level 1.8 Blood Gas Specimen Source Blood arterial Arterial Blood Date Drawn 01/28/2017 8:50:40 AM Arterial Blood pH (Temp corrected) 7.397 Arterial Blood pCO2 (Temp correct) 35.3 Arterial Blood pO2 (Temp corrected) 52.5 *L Arterial Blood HCO3 21.2 L Arterial Blood Base Excess -3.0 Arterial Blood Oxygen Saturation 83.4 L Ivan Test ACCEPTAB Arterial Blood Gas Puncture Site Right Radial Arterial Blood Carboxyhemoglobin 0.3 Arterial Blood Methemoglobin 0.3 Blood Gas A-a O2 Differential 625.2 H Oxyhemoglobin Percent 82.9 L Total Hemoglobin 11.8 L Blood Gas Temperature 37.0 Blood Gas Respiration Rate 16.0 Blood Gas Actual Respiration Rate 33 Blood Gas Modality VENT - AC FiO2 100.0 Blood Gas Inspiratory Time 0.7 Blood Gas Tidal Volume 500.0 Blood Gas Low PEEP Setting 12.0 Blood Gas Critical Value Read Back Jania HANEY RN Blood Gas Notified Whom Annette ARTEAGA Blood Gas Notified Time 01/28/2017 9:07:49 AM Medications Medications Current Medications Acetaminophen (Tylenol Liquid) 650 mg Q4H PRN GTB PAIN OR TEMP ABOVE 38C Last administered on 01/23/17 04:56; Admin Dose 650 MG; Start 01/07/17 at 13:00 Diphenhydramine HCl (Benadryl) 25 mg Q6H PRN GTB ITCHING Last administered on 05:10; Admin Dose 25 MG; Start 01/07/17 at 13:00 Multivit/Ca Carb/ B Cmplx/FA/Prenat (Macrina-Brigitte) 1 tab DAILY GTB Last administered on 01/28/17 09:25; Admin Dose 1 TAB; Start 01/08/17 at 09:00 Ondansetron HCl (Zofran Tab) 4 mg Q4H PRN GTB NAUSEA AND/OR VOMITING Last administered on 01/23/17 13:25; Admin Dose 4 MG; Start 01/07/17 at 13:00 Miscellaneous Information 1 ea NOTE XX ; Start 01/07/17 at 23:45 Glucose (Glutose) 15 gm Q15M PRN PO DECREASED GLUCOSE; Start 01/07/17 at 23:45 Glucose (Glutose) 22.5 gm Q15M PRN PO DECREASED GLUCOSE; Start 01/07/17 at 23:45 Dextrose (D50w Syringe) 25 ml Q15M PRN IV DECREASED GLUCOSE; Start 01/07/17 at 23:45 Dextrose (D50w Syringe) 50 ml Q15M PRN IV DECREASED GLUCOSE; Start 01/07/17 at 23:45 Glucagon (Glucagen) 1 mg Q15M PRN IM DECREASED GLUCOSE; Start 01/07/17 at 23:45 Glucose (Glutose) 15 gm Q15M PRN BUCCAL DECREASED GLUCOSE; Start 01/07/17 at 23: 45 Miscellaneous Information (Pending [facility] Order For Wound Care) This patient lopez... PRN PRN XX WOUND CARE; Start 01/08/17 at 07:30 Insulin Aspart (Novolog Insulin Pen) NOVOLOG *MILD* ALGORI... Q6 SC Last administered on 01/27/17 12:09; Admin Dose 2 UNIT; Start 01/08/17 at 12:00 Heparin Sodium (Porcine) (Heparin (5000 Units/0.5 ml)) 5,000 unit BID SC Last administered on 01/28/17 09:27; Admin Dose 5,000 UNIT; Start 01/10/17 at 21:00 Lorazepam 1 mg 1 mg Q6H PRN PO Agitation Last administered on 01/19/17 08:10; Admin Dose 1 MG; Start 01/10/17 at 13:30; Status Future Hold Midazolam HCl (Versed) 50 ml @ 1 mls/hr TITRATE IV ; Start 01/11/17 at 11:00 Escitalopram Oxalate 10 mg 10 mg DAILY GTB Last administered on 01/28/17 09:25 ; Admin Dose 10 MG; Start 01/13/17 at 09:00 Norepinephrine/ Dextrose (Levophed/D5W) 500 ml @ 1.87 mls/hr TITRATE IV Last administered on 01/24/17 18:18; Admin Dose 9.37 MLS/HR; Start 01/15/17 at 23:45 Midodrine (Proamatine) 10 mg BID@0917 NGT Last administered on 01/28/17 09:27 ; Admin Dose 10 MG; Start 01/18/17 at 09:00 Oxycodone HCl (Roxicodone) 5 mg Q4H PRN PO PAIN Last administered on 01/28/17 09:15; Admin Dose 5 MG; Start 01/18/17 at 12:00 IV Flush (NS 10 ml) 10 ml PRN PRN IV IV PROTOCOL; Start 01/19/17 at 17:00 Metronidazole 500 mg 500 mg Q8 NGT Last administered on 01/28/17 05:10; Admin Dose 500 MG; Start 01/23/17 at 14:00 Fentanyl 100 ml @ 2.5 mls/hr TITRATE IV ; Start 01/28/17 at 09:30 Sodium Chloride (NS) 500 ml @ 500 mls/hr Q1H ONCE IV ; Start 01/28/17 at 09:30 ; Stop 01/28/17 at 10:29 JUSTIN LINARES Jan 28, 2017 10:05
[2017-01-28] MEDS: FENTAnyl (DRIP) 1000 mcg/100mL 100 ML IV SCH ×2 (10:37→19:51)
--- NOTE | 2017-01-28 12:11 | CONS ---
Date/Time of Note Date/Time of Note DATE: 01/28/17 TIME: 12:09 Assessment/Plan Assessment/Plan Chief Complaint/Hosp Course Patient was started on Levophed drip she is also hypothermic on warmer blanket awake follows commands and in no distress Temperature 97 pulse 99 respirations 20 blood pressure 99/70 saturation 90% on vent WBC 15.1 H&H 8.1 and 25.8 platelets 284 neutrophils 76.8 BN 50 creatinine 2.10 Chest x-ray revealed increasing right base airspace opacity and consolidation with small pleural effusion Antibiotics: Flagyl Indwelling: PICC line trach PEG right chest permacath Allergy: Erythromycin, vancomycin Physical examination: Chronically ill-appearing elderly woman who is in no distress. Head atraumatic normocephalic, sclera nonicteric, neck is supple, tracheostomy present. Chest rise symmetrical, breath sounds diminished basis. Heart S1-S2. Abdomen soft, bowel tones present. Extremities no cyanosis Assessment: 1. Acute on chronic Hypoxemic Resp Failure secondary to shows R --> L shunting through atrium c/w PFO or ASD as per 2D echo report 2. Shock, restarted on pressors, white blood cell count going up 3. VDRF 4. ESRD on HD 5. Diarrhea, on empiric Flagyl Plan: Doing poorly, will restart antibiotics given radiographic worsening and leukocytosis, repeat urine, sputum and blood cultures, continue present care, vent management per pulmonary, cardiology recommendations Discussed with staff Problems: Consultation Date/Type/Reason Admit Date/Time Jan 07, 2017 at 12:43 Initial Consult Date 01/08/17 Type of Consultation: id Referring Provider: YAYO EDGAR DO Exam/Review of Systems Vital Signs Vitals Vital Signs Date Time Temp Pulse Resp B/P Pulse Ox O2 Delivery O2 Flow Rate FiO2 01/28/17 11:00 95 18 73/44 97 Mechanical Ventilator 01/28/17 10:15 97.0 01/28/17 04:46 100 Intake and Output 01/27/17 01/27/17 01/28/17 15:00 23:00 07:00 Intake Total 804.5455 ml 1050 ml 500 ml Output Total 3500 ml Balance -2695.4545 ml 1050 ml 500 ml Results Result Diagram: 01/28/17 0515 01/28/17 0515 Results 24 hrs Laboratory Tests Test 01/27/17:22 01/28/17 00:20 01/28/17 05:08 01/28/17 05:15 Bedside Glucose 113 94 98 White Blood Count 15.1 #H Red Blood Count 2.92 L Hemoglobin 8.1 L Hematocrit 25.8 L Mean Corpuscular Volume 88.4 Mean Corpuscular Hemoglobin 27.7 L Mean Corpuscular Hemoglobin Concent 31.4 L Red Cell Distribution Width 19.4 H Platelet Count 284 # Mean Platelet Volume 12.6 H Neutrophils % 76.8 Lymphocytes % 12.5 L Monocytes % 8.3 Eosinophils % 0.9 Basophils % 0.2 Nucleated Red Blood Cells % 1.3 H Neutrophils # 11.6 H Lymphocytes # 1.9 Monocytes # 1.3 H Eosinophils # 0.1 Basophils # 0.0 Nucleated Red Blood Cells # 0.2 H Sodium Level 144 Potassium Level 4.7 Chloride Level 101 Carbon Dioxide Level 24 Anion Gap 24 H Blood Urea Nitrogen 50 H Creatinine 2.10 H Glucose Level 83 # Calcium Level 8.5 Phosphorus Level 3.1 Magnesium Level 1.8 Test 01/28/17 07:42 01/28/17 10:07 Blood Gas Specimen Source Blood arterial Arterial Blood Date Drawn 01/28/2017 8:50:40 AM Arterial Blood pH (Temp corrected) 7.397 Arterial Blood pCO2 (Temp correct) 35.3 Arterial Blood pO2 (Temp corrected) 52.5 *L Arterial Blood HCO3 21.2 L Arterial Blood Base Excess -3.0 Arterial Blood Oxygen Saturation 83.4 L Ivan Test ACCEPTAB Arterial Blood Gas Puncture Site Right Radial Arterial Blood Carboxyhemoglobin 0.3 Arterial Blood Methemoglobin 0.3 Blood Gas A-a O2 Differential 625.2 H Oxyhemoglobin Percent 82.9 L Total Hemoglobin 11.8 L Blood Gas Temperature 37.0 Blood Gas Respiration Rate 16.0 Blood Gas Actual Respiration Rate 33 Blood Gas Modality VENT - AC FiO2 100.0 Blood Gas Inspiratory Time 0.7 Blood Gas Tidal Volume 500.0 Blood Gas Low PEEP Setting 12.0 Blood Gas Critical Value Read Back Jania HANEY RN Blood Gas Notified Whom Annette ARTEAGA Blood Gas Notified Time 01/28/2017 9:07:49 AM Bedside Glucose 98 Medications Medications Current Medications Acetaminophen (Tylenol Liquid) 650 mg Q4H PRN GTB PAIN OR TEMP ABOVE 38C Last administered on 01/23/17 04:56; Admin Dose 650 MG; Start 01/07/17 at 13:00 Diphenhydramine HCl (Benadryl) 25 mg Q6H PRN GTB ITCHING Last administered on 05:10; Admin Dose 25 MG; Start 01/07/17 at 13:00 Multivit/Ca Carb/ B Cmplx/FA/Prenat (Macrina-Brigitte) 1 tab DAILY GTB Last administered on 01/28/17 09:25; Admin Dose 1 TAB; Start 01/08/17 at 09:00 Ondansetron HCl (Zofran Tab) 4 mg Q4H PRN GTB NAUSEA AND/OR VOMITING Last administered on 01/23/17 13:25; Admin Dose 4 MG; Start 01/07/17 at 13:00 Miscellaneous Information 1 ea NOTE XX ; Start 01/07/17 at 23:45 Glucose (Glutose) 15 gm Q15M PRN PO DECREASED GLUCOSE; Start 01/07/17 at 23:45 Glucose (Glutose) 22.5 gm Q15M PRN PO DECREASED GLUCOSE; Start 01/07/17 at 23:45 Dextrose (D50w Syringe) 25 ml Q15M PRN IV DECREASED GLUCOSE; Start 01/07/17 at 23:45 Dextrose (D50w Syringe) 50 ml Q15M PRN IV DECREASED GLUCOSE; Start 01/07/17 at 23:45 Glucagon (Glucagen) 1 mg Q15M PRN IM DECREASED GLUCOSE; Start 01/07/17 at 23:45 Glucose (Glutose) 15 gm Q15M PRN BUCCAL DECREASED GLUCOSE; Start 01/07/17 at 23: 45 Miscellaneous Information [facility] This patient lopez... PRN PRN XX WOUND CARE; Start 01/08/17 at 07:30 Insulin Aspart (Novolog Insulin Pen) NOVOLOG *MILD* ALGORI... Q6 SC Last administered on 01/27/17 12:09; Admin Dose 2 UNIT; Start 01/08/17 at 12:00 Heparin Sodium (Porcine) (Heparin (5000 Units/0.5 ml)) 5,000 unit BID SC Last administered on 01/28/17 09:27; Admin Dose 5,000 UNIT; Start 01/10/17 at 21:00 Lorazepam 1 mg 1 mg Q6H PRN PO Agitation Last administered on 01/19/17 08:10; Admin Dose 1 MG; Start 01/10/17 at 13:30; Status Future Hold Midazolam HCl (Versed) 50 ml @ 1 mls/hr TITRATE IV ; Start 01/11/17 at 11:00 Escitalopram Oxalate 10 mg 10 mg DAILY GTB Last administered on 01/28/17 09:25 ; Admin Dose 10 MG; Start 01/13/17 at 09:00 Norepinephrine/ Dextrose (Levophed/D5W) 500 ml @ 1.87 mls/hr TITRATE IV Last administered on 01/24/17 18:18; Admin Dose 9.37 MLS/HR; Start 01/15/17 at 23:45 Midodrine (Proamatine) 10 mg BID@09,17 NGT Last administered on 01/28/17 09:27 ; Admin Dose 10 MG; Start 01/18/17 at 09:00 Oxycodone HCl (Roxicodone) 5 mg Q4H PRN PO PAIN Last administered on 01/28/17 09:15; Admin Dose 5 MG; Start 01/18/17 at 12:00 IV Flush (NS 10 ml) 10 ml PRN PRN IV IV PROTOCOL; Start 01/19/17 at 17:00 Metronidazole 500 mg 500 mg Q8 NGT Last administered on 01/28/17 05:10; Admin Dose 500 MG; Start 01/23/17 at 14:00 Fentanyl (Sublimaze) 100 ml @ 2.5 mls/hr TITRATE IV Last administered on 10:37; Admin Dose 2.5 MLS/HR; Start 01/28/17 at 09:30 AI FUNEZ NP Jan 28, 2017 12:11
[2017-01-28] MEDS: ZYVOX 600 MG TAB PO SCH ×2 (14:00→23:10)
[2017-01-28] MEDS: MEROPENEM 500MG/50 ML (PMX) 50 ML IVPB SCH ×2 (14:00→23:10)
--- NOTE | 2017-01-28 15:39 | PN ---
Date/Time of Note Date/Time of Note DATE: 01/28/17 TIME: 15:38 Assessment/Plan VTE Prophylaxis VTE Prophylaxis Intervention: heparin Lines/Catheters IV Catheter Type (from Nrs): PICC Line Central line still needed: Yes Urinary Cath still in place: No Assessment/Plan Chief Complaint/Hosp Course A/P: 1. acute on chronic hypoxemic hypercapnic respiratory failure: s/p trach: vent dep. still with severe hypoxemia. intermittently requiring [id number]% O2 and difficult to oxygenate. 2. Pafib; currently remains in NSR: off of amiodarone now 3. HX Sick sinus syndrome: s/p PPM: pacemaker was interrogated and personally reviewed on 01/08/17 with normal functioning pacemaker. 4. pneumonia 5. ESRD on HD 6. HX HTN: stable now 7. severe anemia: s/p multiple transfusion 8. severe hypoxemia 9. SHOCK: septic shock and still on levophed drip 10. pulmonary HTN: PA pressure about 75 mmHg on echo 11. evidence of R ---> L shunting on echo with bubble study c/ w PFO/ ASD cont vent support not fully anticoagulated due to concerns about bleeding and severe anemia. abx as per IM/ ID and pulm team CT pulm angio was negative for PE. CONT aggressive HD HR has remained stable. Will monitor on tele correct lytes prn transfusion prn Off of AMIODARONE due to severe hypoxemia, specially since pt has remained in NSR. 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 no previous reports of any work up for ASD. PFO in the past has been reported to me more than 38 minutes of critical care time was spent in management and treatment of this critically ill pt, excluding any procedures. Problems: Subjective 24 Hr Interval Summary Free Text/Dictation CARDIOLOGY FOLLOW UP PROGRESS NOTE/ ICU NOTE: SUBJECTIVE: d/w staff and rhythm was reviewed. pt remains in NSR. no afib noted. pt still with severe hypoxemia and currently on 100% O2 now pt is still s/p trach on vent in ICU but was able to be weaned off of levophed drip, but now back on levophed drip again. pt with no chest pain. d/ w multiple physicians. OBJECTIVE. General: s/p trach on vent. in no distress HEENT: NC/AT. pupils are equal. round. NECK: s/p trach. no stridor. CV: RRR. systolic murmur; no gallop or rubs. PULM: no wheezing but + rhonchi anteriorly diffusely GI: SOFT, NT, ND, no rebound or guarding . s/p PEG Extremity: trace B/L LE edema. no clubbing. neuro: drowsy. Psych: calm, pleasant rectal: deferred Derm: + echymosis chest: s/p R mastectomy and HD ACCESS in place. echo 01/24/17 reviewed personally: 1. Normal left ventricular systolic function. Normal left ventricular cavity size. Mild concentric left ventricular hypertrophy. Ejection fraction is visually estimated at 55 %. Tissue Doppler/Mitral Doppler indices are consistent with impaired relaxation (Stage I diastolic dysfunction). 2. There is mild enlargement of left atrium. 3. There is mild enlargement of right atrium. 4. Mild mitral leaflet calcification. Mild mitral annular calcification. Trace mitral regurgitation. 5. Aortic sclerosis without stenosis. Mild aortic valve regurgitation. 6. Normal appearance of the tricuspid valve. Estimated peak PA systolic pressure 75 mmHg. There is moderate tricuspid regurgitation. 7. severe pulm HTN. 8. Inferior vena cava without respiratory collapse, however, patient on ventilator. 9. Normal pericardium with no significant pericardial effusion. 10. agitated saline ( bubble study) shows R --> L shunting through atrium c/w PFO or ASD. Exam/Review of Systems Vital Signs Vitals Vital Signs Date Time Temp Pulse Resp B/P Pulse Ox O2 Delivery O2 Flow Rate FiO2 01/28/17 13:38 95 30 92 100 01/28/17 11:00 73/44 Mechanical Ventilator 01/28/17 10:15 97.0 Intake and Output 01/27/17 01/27/17 01/28/17 15:00 23:00 07:00 Intake Total 804.5455 ml 1050 ml 500 ml Output Total 3500 ml Balance -2695.4545 ml 1050 ml 500 ml Results Result Diagram: 01/28/17 0515 01/28/17 0515 Results 24 hrs Laboratory Tests Test 01/27/17 17:22 01/28/17 00:20 01/28/17 05:08 01/28/17 05:15 Bedside Glucose 113 94 98 White Blood Count 15.1 #H Red Blood Count 2.92 L Hemoglobin 8.1 L Hematocrit 25.8 L Mean Corpuscular Volume 88.4 Mean Corpuscular Hemoglobin 27.7 L Mean Corpuscular Hemoglobin Concent 31.4 L Red Cell Distribution Width 19.4 H Platelet Count 284 # Mean Platelet Volume 12.6 H Neutrophils % 76.8 Lymphocytes % 12.5 L Monocytes % 8.3 Eosinophils % 0.9 Basophils % 0.2 Nucleated Red Blood Cells % 1.3 H Neutrophils # 11.6 H Lymphocytes # 1.9 Monocytes # 1.3 H Eosinophils # 0.1 Basophils # 0.0 Nucleated Red Blood Cells # 0.2 H Sodium Level 144 Potassium Level 4.7 Chloride Level 101 Carbon Dioxide Level 24 Anion Gap 24 H Blood Urea Nitrogen 50 H Creatinine 2.10 H Glucose Level 83 # Calcium Level 8.5 Phosphorus Level 3.1 Magnesium Level 1.8 Test 01/28/17 07:42 01/28/17 10:07 01/28/17 12:36 Blood Gas Specimen Source Blood arterial Arterial Blood Date Drawn 01/28/2017 8:50:40 AM Arterial Blood pH (Temp corrected) 7.397 Arterial Blood pCO2 (Temp correct) 35.3 Arterial Blood pO2 (Temp corrected) 52.5 *L Arterial Blood HCO3 21.2 L Arterial Blood Base Excess -3.0 Arterial Blood Oxygen Saturation 83.4 L Ivan Test ACCEPTAB Arterial Blood Gas Puncture Site Right Radial Arterial Blood Carboxyhemoglobin 0.3 Arterial Blood Methemoglobin 0.3 Blood Gas A-a O2 Differential 625.2 H Oxyhemoglobin Percent 82.9 L Total Hemoglobin 11.8 L Blood Gas Temperature 37.0 Blood Gas Respiration Rate 16.0 Blood Gas Actual Respiration Rate 33 Blood Gas Modality VENT - AC FiO2 100.0 Blood Gas Inspiratory Time 0.7 Blood Gas Tidal Volume 500.0 Blood Gas Low PEEP Setting 12.0 Blood Gas Critical Value Read Back Jania HANEY RN Blood Gas Notified Whom Annette ARTEAGA Blood Gas Notified Time 01/28/2017 9:07:49 AM Bedside Glucose 98 82 Medications Medications Current Medications Acetaminophen (Tylenol Liquid) 650 mg Q4H PRN GTB PAIN OR TEMP ABOVE 38C Last administered on 01/23/17t 04:56; Admin Dose 650 MG; Start 01/07/17 at 13:00 Diphenhydramine HCl (Benadryl) 25 mg Q6H PRN GTB ITCHING Last administered on 05:10; Admin Dose 25 MG; Start 01/07/17 at 13:00 Multivit/Ca Carb/ B Cmplx/FA/Prenat (Macrina-Brigitte) 1 tab DAILY GTB Last administered on 01/28/17 09:25; Admin Dose 1 TAB; Start 01/08/17 at 09:00 Ondansetron HCl (Zofran Tab) 4 mg Q4H PRN GTB NAUSEA AND/OR VOMITING Last administered on 01/23/17 13:25; Admin Dose 4 MG; Start 01/07/17 at 13:00 Miscellaneous Information 1 ea NOTE XX ; Start 01/07/17 at 23:45 Glucose (Glutose) 15 gm Q15M PRN PO DECREASED GLUCOSE; Start 01/07/17 at 23:45 Glucose (Glutose) 22.5 gm Q15M PRN PO DECREASED GLUCOSE; Start 01/07/17 at 23:45 Dextrose (D50w Syringe) 25 ml Q15M PRN IV DECREASED GLUCOSE; Start 01/07/17 at 23:45 Dextrose (D50w Syringe) 50 ml Q15M PRN IV DECREASED GLUCOSE; Start 01/07/17 at 23:45 Glucagon (Glucagen) 1 mg Q15M PRN IM DECREASED GLUCOSE; Start 01/07/17 at 23:45 Glucose (Glutose) 15 gm Q15M PRN BUCCAL DECREASED GLUCOSE; Start 01/07/17 at 23: 45 Miscellaneous Information (Pending [facility] Order For Wound Care) This patient lopez... PRN PRN XX WOUND CARE; Start 01/08/17 at 07:30 Insulin Aspart (Novolog Insulin Pen) NOVOLOG *MILD* ALGORI... Q6 SC Last administered on 01/27/17 12:09; Admin Dose 2 UNIT; Start 01/08/17 at 12:00 Heparin Sodium (Porcine) (Heparin (5000 Units/0.5 ml)) 5,000 unit BID SC Last administered on 01/28/17 09:27; Admin Dose 5,000 UNIT; Start 01/10/17 at 21:00 Lorazepam 1 mg 1 mg Q6H PRN PO Agitation Last administered on 01/19/17 08:10; Admin Dose 1 MG; Start 01/10/17 at 13:30; Status Future Hold Midazolam HCl (Versed) 50 ml @ 1 mls/hr TITRATE IV ; Start 01/11/17 at 11:00 Escitalopram Oxalate 10 mg 10 mg DAILY GTB Last administered on 01/28/17 09:25 ; Admin Dose 10 MG; Start 01/13/17 at 09:00 Norepinephrine/ Dextrose (Levophed/D5W) 500 ml @ 1.87 mls/hr TITRATE IV Last administered on 01/24/17 18:18; Admin Dose 9.37 MLS/HR; Start 01/15/17 at 23:45 Midodrine (Proamatine) 10 mg BID@09,17 NGT Last administered on 01/28/17 09:27 ; Admin Dose 10 MG; Start 01/18/17 at 09:00 Oxycodone HCl (Roxicodone) 5 mg Q4H PRN PO PAIN Last administered on 01/28/17 09:15; Admin Dose 5 MG; Start 01/18/17 at 12:00 IV Flush (NS 10 ml) 10 ml PRN PRN IV IV PROTOCOL; Start 01/19/17 at 17:00 Metronidazole 500 mg 500 mg Q8 NGT Last administered on 01/28/17 14:00; Admin Dose 500 MG; Start 01/23/17 at 14:00 Fentanyl 100 ml @ 2.5 mls/hr TITRATE IV Last administered on 01/28/17 10:37; Admin Dose 2.5 MLS/HR; Start 01/28/17 at 09:30 Meropenem/Sodium Chloride (Merrem 500mg/50 ml(Pmx)) 50 ml @ 100 mls/hr Q12 IVPB Last administered on 01/28/17 14:00; Admin Dose 100 MLS/HR; Start at 14:00 Linezolid (Zyvox) 600 mg BID PO Last administered on 01/28/17 14:00; Admin Dose 600 MG; Start 01/28/17 at 12:30 KIAH GARCIA MD Jan 28, 2017 15:39
[2017-01-28] MEDS: DEXTROSE 50% 50 ML SYRINGE IV PRN ×3 (18:11→22:45)
[2017-01-28] MEDS: PHENYLephrine 40 MG in DEXTROSE 5% 496 ML IV SCH (19:00)
[2017-01-28] MEDS ORDERED: PHENYLephrine 40 MG in DEXTROSE 5% 496 ML IV SCH (19:00)
[2017-01-28 19:58] LABS: AADO2 Arterial 619.8 mmHg (7.0-24.0); Arterial Base Excess -16.9 mmol/L (-3.0-3); Arterial COHb 0.3 % (0.0-3.0); Arterial Fraction of Oxyhgb 66.9 % (93.0-99.0); Arterial HCO3 12.3 mmol/L (22.0-26.0); Arterial MetHb 0.5 % (0.0-1.5); Arterial Total Hemglobin 10.8 g/dl (12.0-18.0); MODE AMBU BAG
[2017-01-28] MEDS ORDERED: NA BICARBONATE 8.4% 50 ML SYG IV STA ×2 (20:08→23:43)
[2017-01-28] MEDS ORDERED: NA BICARBONATE 8.4% 50 ML SYG ONE (20:10)
[2017-01-28] MEDS ORDERED: SODIUM BICARBONATE (IV ADD) 150 MEQ in DEXTROSE 5% 1,000 ML IV SCH ×2 (20:30→21:00)
[2017-01-28] MEDS ORDERED: SODIUM BICARBONATE (IV ADD) 100 MEQ in DEXTROSE 5%-0.45% NACL 1,000 ML IV SCH (21:00)
[2017-01-28] MEDS ORDERED: METHYLPREDNISOLONE 125 MG INJ IV ONE (21:30)
--- NOTE | 2017-01-28 22:20 | EN ---
Date/Time of Note Date/Time of Note DATE: 01/28/17 TIME: 22:18 Event Note Medicine Medicine Event Note Procedure note Arterial line placement Consent was obtained from patient's daughter. Indication Hemodynamic monitoring and arterial blood gas sampling Description Patient was placed in supine position both radial arteries were attempted off balance testing unfortunately we were unable to pass catheter through radiology. Right femoral artery site was then cleaned and prepped in usual sterile manner using ultrasound guidance for artery was located at guidewire passed through needle without resistance. Following passage of guidewire a history of catheter using significant technique arterial waveform was obtained via pressure transducer and arterial monitoring. Patient tolerated procedure without complication. RHONDA BUENROSTRO MD, [facility] Jan 28, 2017 22:20
--- NOTE | 2017-01-28 22:23 | EN ---
Date/Time of Note Date/Time of Note DATE: 01/28/17 TIME: 22:20 Event Note Medicine Medicine Event Note Patient's condition had deteriorated this evening. I came in to reevaluate her condition and stabilize patient. Upon arrival patient had oxygen saturations in the 80s. She is also on 2 vasopressors. Patient was switched to bilevel ventilation with improvement in saturations now saturating in the high 80s. In addition arterial line was placed for more accurate hemodynamic monitoring. I had extensive discussion with the family and specifically patient's daughter who is the DPOA explained her critical condition and explained that she may not survive this evening. Family understands critical condition. Currently was to continue all present measures. Case was also discussed with primary team regarding fluid management. Currently patient not stable for hemodialysis given that she is on 2 vasopressors. Lactic acid dose is being corrected with volume resuscitation. Metabolic acidosis being corrected with bicarbonate. I have added steroids for any inflammatory process in the lungs. RHONDA BUENROSTRO MD, [facility] Jan 28, 2017 22:23
--- NOTE | 2017-01-28 23:01 | RADRPT ---
PROCEDURE: XR Chest. CLINICAL INDICATION: Respiratory distress. TECHNIQUE: Portable AP semi erect view of the chest was obtained. COMPARISON: 01/28/2017 at 08:12 a.m. FINDINGS: The cardiomediastinal silhouette is enlarged with dual chamber left subclavian approach cardiac pace maker again noted. Right-sided Perma-Cath and PICC remain in good positions projecting at the cavoa trial junction. Right lung infiltrate and right pleural effusion are believed to be the slightly de creased compared to earlier the same day. The left lung remains clear. Tracheostomy is in good pos ition. There is no evidence of pneumothorax. The osseous structures are intact with no evidence fo r acute abnormality. RPTAT:HJJR IMPRESSION: 1. Slight improvement in aeration of the right thorax compared to earlier the same day with decrease but incompletely resolved infiltrate and pleural effusion. 2. Cardiac silhouette enlargement and cardiac pacemaker again noted without certain congestive hear t failure pattern. 3. Tracheostomy, right-sided Perma-Cath and right PICC remain in good positions. Physician Mp Date Time Electronically viewed and signed by Physician Mp on 01/28/2017 23:01 JR/
[2017-01-28 23:20] LABS: AADO2 Arterial 618.8 mmHg (7.0-24.0); Arterial Base Excess -18.5 mmol/L (-3.0-3); Arterial COHb 0.3 % (0.0-3.0); Arterial Fraction of Oxyhgb 71.4 % (93.0-99.0); Arterial HCO3 10.8 mmol/L (22.0-26.0); Arterial MetHb 0.7 % (0.0-1.5); Arterial Total Hemglobin 9.8 g/dl (12.0-18.0); Blood Gas PS 10; MODE VENT - BIPHASIC
[2017-01-28] MEDS ORDERED: SODIUM BICARBONATE (IV ADD) 100 MEQ in DEXTROSE 10% 1,000 ML IV SCH ×4 (23:30)
[2017-01-29] VITALS (110 sets, daily range): BP systolic 78–123; BP diastolic 51–71; PULSE 99–173; RESP 9–39
[2017-01-29] MEDS: METHYLPREDNISOLONE 125 MG INJ IV SCH ×4 (00:14→17:48)
[2017-01-29] MEDS ORDERED: DEXTROSE 10% IV SCH ×3 (00:59)
[2017-01-29] MEDS ORDERED: SODIUM BICARBONATE IV SCH ×3 (00:59)
[2017-01-29] MEDS ORDERED: NORepinephrine 8MG/250 ML (PMX 250 ML IV SCH (01:00)
[2017-01-29] MEDS: ALBUTEROL 18 GM INHALER INH SCH ×2 (01:27→08:00)
[2017-01-29] MEDS: IPRATROPIUM (HFA) 12.9 GM INHALER INH SCH ×2 (01:27→08:00)
[2017-01-29] MEDS: DEXTROSE 50% 50 ML SYRINGE IV PRN (01:42)
[2017-01-29] MEDS: PHENYLephrine 40 MG in DEXTROSE 5% 496 ML IV SCH ×2 (02:15→04:30)
[2017-01-29 02:16] LABS: AADO2 Arterial 609.3 mmHg (7.0-24.0); Arterial Base Excess -19.4 mmol/L (-3.0-3); Arterial COHb 0.3 % (0.0-3.0); Arterial Fraction of Oxyhgb 74.8 % (93.0-99.0); Arterial HCO3 10.7 mmol/L (22.0-26.0); Arterial MetHb 0.6 % (0.0-1.5); Arterial Total Hemglobin 10.2 g/dl (12.0-18.0); Blood Gas PS 10; MODE VENT - BIPHASIC
[2017-01-29] MEDS: metroNIDAZOLE 500 MG TAB NGT SCH ×3 (05:18→21:27)
[2017-01-29] MEDS: INSULIN ASPART [NOVOLOG] 3 ML PEN SC SCH ×4 (05:18→17:55)
[2017-01-29 05:42] LABS: ABNORMAL IP MESSAGE 1; HEMATOCRIT 29.9 % (37.0-47.0); HEMOGLOBIN 8.6 g/dl (12.0-16.0); MEAN CORPUSCULAR HGB CONC 28.8 g/dl (32.0-37.0); MEAN CORPUSCULAR VOLUME 97.4 fl (82.0-101.0); MEAN PLATELET VOLUME 12.4 fl (7.4-10.4); PLATELET COUNT 305 10^3/UL (140-415); RED BLOOD COUNT 3.07 10^6/ul (4.20-5.40); RED CELL DISTRIBUTION WIDTH 20.5 % (11.5-14.5); WHITE BLOOD COUNT 20.6 10^3/ul (4.8-10.8)
[2017-01-29] MEDS ORDERED: PHENYLephrine 160 MG in DEXTROSE 5% 484 ML IV SCH (06:00)
[2017-01-29 06:15] LABS: CALCIUM 7.7 mg/dl (8.4-10.2); CREATININE 2.83 mg/dl (0.44-1.00); PHOSPHORUS 8.3 mg/dl (2.5-4.9); POTASSIUM 4.6 mmol/L (3.5-5.1)
[2017-01-29 06:39] LABS: POSITIVE DIFF @See below
[2017-01-29] MEDS: PHENYLephrine 160 MG in DEXTROSE 5% 484 ML IV SCH ×2 (06:51→15:30)
[2017-01-29] MEDS: MIDAZOLAM (DRIP) 50 mg/50 mL 50 ML IV SCH ×2 (06:52→14:39)
[2017-01-29] MEDS: RISEDRONATE 5 MG TAB GTB SCH (07:05)
[2017-01-29 07:26] LABS: AADO2 Arterial 594.5 mmHg (7.0-24.0); Arterial Base Excess -22.3 mmol/L (-3.0-3); Arterial COHb 0.3 % (0.0-3.0); Arterial Fraction of Oxyhgb 85.8 % (93.0-99.0); Arterial HCO3 8.7 mmol/L (22.0-26.0); Arterial MetHb 0.6 % (0.0-1.5); Arterial Total Hemglobin 10.4 g/dl (12.0-18.0); Blood Gas PS 10; MODE VENT - BIPHASIC
[2017-01-29] MEDS ORDERED: NA BICARBONATE 8.4% 50 ML SYG IV STA (07:30)
--- NOTE | 2017-01-29 08:18 | PN ---
Date/Time of Note Date/Time of Note DATE: 01/29/17 TIME: 08:08 Assessment/Plan Lines/Catheters IV Catheter Type (from Nrs): A Line Urinary Cath still in place: No Assessment/Plan Chief Complaint/Hosp Course 1. hypoxemic respiratory failure. etiology likely multifactorial, chf, pna,, patent PFO/ASD causing right to left cardiac shunt. shock -CT angios showed interstitial edema pulmonary edema, no evidence of PE -2D echo shows a right to left cardiac shunt possibly from PFO, versus asd -Discussed case with building construction contractor, recommends transfer to a higher level of care to determine if shunt needs to be closed and for continuous monitoring via Stratton-Andrew catheter of pulmonary pressure Patient is persistently hypoxemic saturating to 50-60s on 100% FiO2 Case discussed with building construction contractor plan Continue current medical management -Follow-up with pulmonary -Attempting transferred to [facility] once hemodynamically stable -Monitor 2. septic shock Etiology unclear possibly due to recurrence of pneumonia, possible GI source -Patient on pressors broad-spectrum antibiotics Patient has significant lactic acidosis Continue broad-spectrum antibiotics We will attempt stat KUB of abdomen CT scan of the abdomen pelvis once patient is more stable Follow-up with infectious disease for antibiotic regimen and management Severe metabolic acidemia Etiology secondary to lactic acidosis from shock, end-stage renal disease Patient's on bicarbonate drip We will attempt hemodialysis on a 40 bicarbonate bath if patient can hemodynamically tolerate Risks and benefits of dialysis explained to the patient's family as stated above Continue treat underlying etiology of lactic acidosis 3. Encephalopathy, acute. Etiology is likely secondary to toxic metabolic Monitor 4. Dysphagia, status post percutaneous endoscopic gastrostomy. - hold tube feedings at this time 5. ESRD -HD today for 4 hours on a 40 bicarbonate bath potassium 3 minimal to no ultrafiltration given shock 7. Atrial fibrillation, currently rate controlled. Continue medical management. -Off anticoagulation secondary to previous bleed We will follow up with cardiology. 8. Anemia. Continue to monitor hemoglobin and hematocrit levels. Continue Epogen -Consider blood transfusion with next hemodialysis 9. Mineral bone disease. Continue to monitor calcium and phosphorus levels. 10. History of breast cancer status post bilateral mastectomy. 11. Congestive heart failure. Continue medical management. 12. Diabetes. Continue Accu-Cheks and sliding scale. 13. History of Clostridium difficile colitis, status post treatment. 14. Gastrointestinal and deep venous thrombosis prophylaxis. Continue Protonix , SCD, heparin 15. Hypernatremia Resolved -Monitor 16. Anxiety disorder. cont Lexapro Please note I spent over 40 minutes critical care time with this patient, Case was discussed with family, [place] and silverware salesperson and building construction contractor Problems: Subjective 24 Hr Interval Summary Free Text/Dictation Patient is critically ill had significant decompensation over the last 18 hours transport conductor , evaluated the patient last night due to the decline in patient's condition Patient is on pressors, hypoxemic, requiring manual ventilation and bagging Patient has significant acidosis due to septic shock, lactic acidosis despite bicarbonate drip I spoke with the patient's daughter Darrel yesterday informing her of the critical nature of her mother and her very poor prognosis . low chance of survival I spoke this morning with the patient's family and son at bedside again informing him of the critical nature of their mother Patient's family is insisting to continue hemodialysis, I explained to them patient is unstable and dialysis could precipitate cardiovascular collapse. Patient's family and son understood but wishes to do everything. Exam/Review of Systems Vital Signs Vitals Vital Signs Date Time Temp Pulse Resp B/P Pulse Ox O2 Delivery O2 Flow Rate FiO2 01/29/17 06:45 100 01/29/17 06:45 111 17 105/60 49 01/29/17 06:00 Mechanical Ventilator 01/29/17 04:15 98.1 Intake and Output 01/28/17 01/28/17 01/29/17 15:00 23:00 07:00 Intake Total 1152.5 ml 490.75 ml 0 ml Output Total 50 ml 15 ml 0 ml Balance 1102.5 ml 475.75 ml 0 ml Exam General, patient critically ill on pressor support full ventilatory support HEENT: Head is normocephalic, NECK: Supple. Positive trach HEART: Irregular LUNGS: Show diminished breath sounds at base. ABDOMEN: Soft, distended no obvious rebound or guarding EXTREMITIES: Negative for clubbing, cyanosis. DERMATOLOGIC: No rashes. MUSCULOSKELETAL: No joint effusions, NEUROLOGIC: No change in exam. Patient obtunded Results Result Diagram: 01/29/17 0515 01/29/17 0515 Results 24 hrs Laboratory Tests Test 01/28/17 10:07 01/28/17 12:36 01/28/17 18:02 01/28/17 18:11 Bedside Glucose 98 82 27 *L 226 H Test 01/28/17 18:19 01/28/17 18:47 01/28/17 19:50 01/28/17 20:14 Bedside Glucose 172 114 54 L Blood Gas Specimen Source Blood arterial Arterial Blood Date Drawn 01/28/2017 7:47:57 PM Arterial Blood pH (Temp corrected) 7.084 *L Arterial Blood pCO2 (Temp correct) 41.9 Arterial Blood pO2 (Temp corrected) 51.3 *L Arterial Blood HCO3 12.3 L Arterial Blood Base Excess -16.9 L Arterial Blood Oxygen Saturation 67.4 L Ivan Test N/A Arterial Blood Gas Puncture Site Left Radial Arterial Blood Carboxyhemoglobin 0.3 Arterial Blood Methemoglobin 0.5 Blood Gas A-a O2 Differential 619.8 H Oxyhemoglobin Percent 66.9 L Total Hemoglobin 10.8 L Blood Gas Temperature 37.0 Blood Gas Modality AMBU BAG FiO2 100.0 Blood Gas High PEEP Setting 15.0 Blood Gas Critical Value Read Back M BRISSA GUADALUPE Blood Gas Notified Whom Epifanio SURESH RCP Blood Gas Notified Time 01/28/2017 7:58:42 PM Test 01/28/17 20:40 01/28/17 20:41 01/28/17 22:37 01/28/17 23:00 Glucose Level 140 # Lactic Acid Level 16.7 *H Bedside Glucose 139 55 L Blood Gas Specimen Source Blood arterial Arterial Blood Date Drawn 01/28/2017 11:10:06 PM Arterial Blood pH (Temp corrected) 7.055 *L Arterial Blood pCO2 (Temp correct) 39.5 Arterial Blood pO2 (Temp corrected) 54.7 *L Arterial Blood HCO3 10.8 L Arterial Blood Base Excess -18.5 L Arterial Blood Oxygen Saturation 72.1 L Ivan Test N/A Arterial Blood Gas Puncture Site A-Line Arterial Blood Carboxyhemoglobin 0.3 Arterial Blood Methemoglobin 0.7 Blood Gas A-a O2 Differential 618.8 H Oxyhemoglobin Percent 71.4 L Total Hemoglobin 9.8 L Blood Gas Temperature 37.0 Blood Gas Respiration Rate 20.0 Blood Gas Actual Respiration Rate 37 Blood Gas Modality VENT - BIPHASIC FiO2 100.0 Blood Gas Inspiratory Time 0.92 Blood Gas High PEEP Setting 30.0 Blood Gas Low PEEP Setting 15.0 Blood Gas Inspiratory Pressure 32.0 Blood Gas Pressure Support 10 Blood Gas Critical Value Read Back MLEX RN Blood Gas Notified Whom KM Blood Gas Notified Time 01/28/2017 11:20:23 PM Test 01/28/17 23:08 01/29/17 00:05 01/29/17 00:49 01/29/17 01:38 Bedside Glucose 146 80 77 65 L Test 01/29/17 02:11 01/29/17 03:09 01/29/17 05:14 01/29/17 05:15 Blood Gas Specimen Source Blood arterial Arterial Blood Date Drawn 01/29/2017 2:05:00 AM Arterial Blood pH (Temp corrected) 7.018 *L Arterial Blood pCO2 (Temp correct) 42.6 Arterial Blood pO2 (Temp corrected) 61.1 L Arterial Blood HCO3 10.7 L Arterial Blood Base Excess -19.4 L Arterial Blood Oxygen Saturation 75.5 L Ivan Test N/A Arterial Blood Gas Puncture Site A-Line Arterial Blood Carboxyhemoglobin 0.3 Arterial Blood Methemoglobin 0.6 Blood Gas A-a O2 Differential 609.3 H Oxyhemoglobin Percent 74.8 L Total Hemoglobin 10.2 L Blood Gas Temperature 37.0 Blood Gas Respiration Rate 20.0 Blood Gas Actual Respiration Rate 26 Blood Gas Modality VENT - BIPHASIC FiO2 100.0 Blood Gas High PEEP Setting 30.0 Blood Gas Low PEEP Setting 15.0 Blood Gas Inspiratory Pressure 32.0 Blood Gas Pressure Support 10 Blood Gas Critical Value Read Back Carolina BRUMFIELD RN Blood Gas Notified Whom Epifanio SURESH RCP Blood Gas Notified Time 01/29/2017 2:15:49 AM Bedside Glucose 152 117 White Blood Count 20.6 #H Red Blood Count 3.07 L Hemoglobin 8.6 L Hematocrit 29.9 L Mean Corpuscular Volume 97.4 Mean Corpuscular Hemoglobin 28.0 L Mean Corpuscular Hemoglobin Concent 28.8 L Red Cell Distribution Width 20.5 H Platelet Count 305 Mean Platelet Volume 12.4 H Neutrophils % Lymphocytes % Monocytes % Eosinophils % Basophils % Nucleated Red Blood Cells % 5.0 H Neutrophils # Lymphocytes # Monocytes # Eosinophils # Basophils # Nucleated Red Blood Cells # Sodium Level 147 H Potassium Level 4.6 Chloride Level 95 L Carbon Dioxide Level 7 #*L Anion Gap 50 #H Blood Urea Nitrogen 52 H Creatinine 2.83 H Glucose Level 261 #H Lactic Acid Level > 24.0 *H Calcium Level 7.7 L Phosphorus Level 8.3 #H Magnesium Level 2.0 Test 01/29/17 07:00 Blood Gas Specimen Source Blood arterial Arterial Blood Date Drawn 01/29/2017 7:05:04 AM Arterial Blood pH (Temp corrected) 6.960 *L Arterial Blood pCO2 (Temp correct) 39.4 Arterial Blood pO2 (Temp corrected) 79.1 L Arterial Blood HCO3 8.7 *L Arterial Blood Base Excess -22.3 L Arterial Blood Oxygen Saturation 86.6 L Ivan Test N/A Arterial Blood Gas Puncture Site A-Line Arterial Blood Carboxyhemoglobin 0.3 Arterial Blood Methemoglobin 0.6 Blood Gas A-a O2 Differential 594.5 H Oxyhemoglobin Percent 85.8 L Total Hemoglobin 10.4 L Blood Gas Temperature 37.0 Blood Gas Respiration Rate 20.0 Blood Gas Actual Respiration Rate 25 Blood Gas Modality VENT - BIPHASIC FiO2 100.0 Blood Gas Inspiratory Time 1.5 Blood Gas High PEEP Setting 30.0 Blood Gas Low PEEP Setting 15.0 Blood Gas Pressure Support 10 Blood Gas Critical Value Read Back Annette BRUMFIELD RN Blood Gas Notified Whom Annette ARTEAGA Blood Gas Notified Time 01/29/2017 7:23:40 AM Medications Medications Current Medications Acetaminophen (Tylenol Liquid) 650 mg Q4H PRN GTB PAIN OR TEMP ABOVE 38C Last administered on 01/23/17 04:56; Admin Dose 650 MG; Start 01/07/17 at 13:00 Diphenhydramine HCl (Benadryl) 25 mg Q6H PRN GTB ITCHING Last administered on 05:10; Admin Dose 25 MG; Start 01/07/17 at 13:00 Multivit/Ca Carb/ B Cmplx/FA/Prenat (Macrina-Brigitte) 1 tab DAILY GTB Last administered on 01/28/17 09:25; Admin Dose 1 TAB; Start 01/08/17 at 09:00 Ondansetron HCl (Zofran Tab) 4 mg Q4H PRN GTB NAUSEA AND/OR VOMITING Last administered on 01/23/17 13:25; Admin Dose 4 MG; Start 01/07/17 at 13:00 Miscellaneous Information 1 ea NOTE XX ; Start 01/07/17 at 23:45 Glucose (Glutose) 15 gm Q15M PRN PO DECREASED GLUCOSE; Start 01/07/17 at 23:45 Glucose (Glutose) 22.5 gm Q15M PRN PO DECREASED GLUCOSE; Start 01/07/17 at 23:45 Dextrose (D50w Syringe) 25 ml Q15M PRN IV DECREASED GLUCOSE Last administered on 01/29/17 01:42; Admin Dose 25 ML; Start 01/07/17 at 23:45 Dextrose (D50w Syringe) 50 ml Q15M PRN IV DECREASED GLUCOSE Last administered on 01/28/17 22:45; Admin Dose 50 ML; Start 01/07/17 at 23:45 Glucagon (Glucagen) 1 mg Q15M PRN IM DECREASED GLUCOSE; Start 01/07/17 at 23:45 Glucose (Glutose) 15 gm Q15M PRN BUCCAL DECREASED GLUCOSE; Start 01/07/17 at 23: 45 [facility] This patient lopez... PRN PRN XX WOUND CARE; Start 01/08/17 at 07:30 Insulin Aspart (Novolog Insulin Pen) NOVOLOG *MILD* ALGORI... Q6 SC Last administered on 01/27/17 12:09; Admin Dose 2 UNIT; Start 01/08/17 at 12:00 Heparin Sodium (Porcine) (Heparin (5000 Units/0.5 ml)) 5,000 unit BID SC Last administered on 01/28/17 23:59; Admin Dose 5,000 UNIT; Start 01/10/17 at 21:00 Lorazepam (Ativan) 1 mg Q6H PRN PO Agitation Last administered on 01/19/17 08: 10; Admin Dose 1 MG; Start 01/10/17 at 13:30; Status Future Hold Escitalopram Oxalate 10 mg 10 mg DAILY GTB Last administered on 01/28/17 09:25 ; Admin Dose 10 MG; Start 01/13/17 at 09:00 Norepinephrine/ Dextrose (Levophed/D5W) 500 ml @ 1.87 mls/hr TITRATE IV Last administered on 01/29/17 01:50; Admin Dose 56.25 MLS/HR; Start 01/15/17 at 23:45 Midodrine (Proamatine) 10 mg BID@,17 NGT Last administered on 01/28/17 18:00 ; Admin Dose 10 MG; Start 01/18/17 at 09:00 Oxycodone HCl (Roxicodone) 5 mg Q4H PRN PO PAIN Last administered on 01/28/17 09:15; Admin Dose 5 MG; Start 01/18/17 at 12:00 IV Flush (NS 10 ml) 10 ml PRN PRN IV IV PROTOCOL; Start 01/19/17 at 17:00 Metronidazole 500 mg 500 mg Q8 NGT Last administered on 01/29/17 05:18; Admin Dose 500 MG; Start 01/23/17 at 14:00 Fentanyl 100 ml @ 2.5 mls/hr TITRATE IV Last administered on 01/28/17 19:51; Admin Dose 9.5 MLS/HR; Start 01/28/17 at 09:30 Meropenem/Sodium Chloride (Merrem 500mg/50 ml(Pmx)) 50 ml @ 100 mls/hr Q12 IVPB Last administered on 01/28/17 23:10; Admin Dose 100 MLS/HR; Start at 14:00 Linezolid 600 mg 600 mg BID PO Last administered on 01/28/17 23:10; Admin Dose 600 MG; Start 01/28/17 at 12:30 Midazolam HCl 50 ml @ 1 mls/hr TITRATE IV Last administered on 01/29/17 06:52 ; Admin Dose 4 MLS/HR; Start 01/28/17 at 19:30 Sodium Bicarbonate/ Dextrose/Sodium Chloride (Na Bicarb/D5-1/ 2ns) 1,100 ml @ 100 mls/hr Q11H IV Last administered on 01/28/17 20:43; Admin Dose 100 MLS/HR ; Start 01/28/17 at 21:00 Methylprednisolone Sodium Succinate 60 mg 60 mg Q6 IV Last administered on 01/29 05:18; Admin Dose 60 MG; Start 01/29/17 at 00:00 Phenylephrine HCl 40 mg/Dextrose 500 ml @ 75 mls/hr TITRATE IV Last administered on 01/29/17 04:30; Admin Dose 225 MLS/HR; Start 01/28/17 at 21:30 ; Stop 01/29/17 at 09:00 Norepinephrine 250 ml @ 1.875 mls/ hr TITRATE IV ; Start 01/29/17 at 01:00; Stop 01/29/17 at 12:00 Sodium Bicarbonate 150 meq/Dextrose 1,150 ml @ 100 mls/hr [id number] IV Last administered on 01/29/17 01:47; Admin Dose 100 MLS/HR; Start 01/29/17 at 00:00 Sodium Bicarbonate 150 meq/Dextrose 1,150 ml @ 100 mls/hr [id number] IV ; Start at 09:00 Phenylephrine HCl/ Dextrose (Arnol-Syneph/D5W) 500 ml @ 18.75 mls/ hr TITRATE IV Last administered on 01/29/17 06:51; Admin Dose 56.25 MLS/HR; Start 01/29/17 at 07:00 CHARLIE BUSBY DO Jan 29, 2017 08:18
[2017-01-29] MEDS: VASOPRESSIN 60 UNIT in DEXTROSE 5% 57 ML IV SCH (09:20)
--- NOTE | 2017-01-29 09:22 | RADRPT ---
PROCEDURE: XR Abdomen. CLINICAL INDICATION: Abdominal distention TECHNIQUE: AP abdomen x-ray. COMPARISON: 10/10/2016 FINDINGS: The bowel gas pattern is normal.There is no evidence of obstruction. There are no abnormal calcifica tions overlying the urinary tracts. The soft tissue and osseus structures are unremarkable. IMPRESSION: 1. Unremarkable abdomen radiograph. RPTAT:AAJJ Physician Mary Date Time Electronically viewed and signed by Physician Mary on 01/29/2017 09:22 ZACH/
--- NOTE | 2017-01-29 09:24 | RADRPT ---
PROCEDURE: XR Chest. CLINICAL INDICATION: Shortness of breath. TECHNIQUE: Single frontal view. COMPARISON: 01/28/2017. FINDINGS: The tracheostomy tube, right internal jugular vein tunneled dialysis catheter, and right arm PICC li ne remain in satisfactory position. Surgical clips are present bilaterally in the axillae. There is a left-sided dual lead permanent pacemaker. Mild pulmonary edema is unchanged. The heart is enlarged. There is no pleural effusion. There is no pneumothorax. IMPRESSION: 1. No change from 01/28/2017. RPTAT: QQ .Jeff Ring MD, MD Date Time Electronically viewed and signed by .Jfef Ring MD, MD on 01/29/2017 09:24 .R/
[2017-01-29] MEDS: ESCITALOPRAM 10 MG TAB GTB SCH (10:13)
[2017-01-29] MEDS: MULTIVIT/CA CARB/B CMPLX/FA TAB GTB SCH (10:13)
[2017-01-29] MEDS: ZYVOX 600 MG TAB PO SCH ×2 (10:13→21:28)
[2017-01-29] MEDS: LANSOPRAZOLE 30 MG CAP GTB SCH (10:13)
[2017-01-29] MEDS: HEPARIN 5,000 UNIT/0.5 ML VIAL SC SCH ×2 (10:14→21:29)
[2017-01-29] MEDS: MIDODRINE 5 MG TAB NGT SCH ×2 (10:14→17:47)
[2017-01-29 10:17] LABS: ERYTHROBLAST% (NRBC) (M) 8 % (0-0); LYMPHOCYTES # 1.4 10^3/ul (0.8-2.9); MONOCYTE # 0.6 10^3/ul (0.3-0.9); NEUTROPHIL # 18.3 10^3/ul (1.6-7.5)
--- NOTE | 2017-01-29 11:31 | CONS ---
Date/Time of Note Date/Time of Note DATE: 01/29/17 TIME: 11:28 Assessment/Plan Assessment/Plan Additional Assessment/Plan Ventilator setting; patient is on bilevel mode of ventilation with 100% FiO2. Next Chest x-ray was reviewed from today which is showing minimal bilateral infiltrates. Patient currently on phenylephrine drip at 300 mics per minute, Versed 4 mg/h, Levophed 30 mics per minute, fentanyl 50 mics per hour, vasopressin 0.04 U/min. Assessment recommendations; 1. Patient admitted with severe sepsis and pneumonia with marked clinical decline. Currently getting aggressive ventilator management as well as high- dose combination pressor support. 2. Profound metabolic acidosis. 3. History of respiratory failure status post tracheostomy. 4. Prior history of breast cancer with bilateral mastectomies. 5. Atrial fibrillation. Continue current supportive care. Patient has been aggressively treated with supplemental sodium bicarbonate for correction of metabolic acidosis. I did have a very detailed discussion the patient's son at bedside and apprised him of very poor overall prognosis. 35 minutes of critical care time was spent evaluating the patient. Consultation Date/Type/Reason Admit Date/Time Jan 07, 2017 at 12:43 Initial Consult Date 01/07/17 Type of Consultation: Pulmonary/critical care Referring Provider: YAYO EDGAR DO 24 HR Interval Summary Free Text/Dictation Patient condition remains extremely critical. Having profound hypoxemia. As well as profound hypotension. General exam; elderly woman, on ventilator via tracheostomy, unresponsive. Exam/Review of Systems Vital Signs Vitals Vital Signs Date Time Temp Pulse Resp B/P Pulse Ox O2 Delivery O2 Flow Rate FiO2 01/29/17 11:00 151 22 107/66 59 Mechanical Ventilator 01/29/17 08:00 100 01/29/17 08:00 98.6 Intake and Output 01/28/17 01/28/17 01/29/17 14:59 22:59 06:59 Intake Total 1182.5 ml 913.50 ml 2665.75 ml Output Total 50 ml 15 ml 0 ml Balance 1132.5 ml 898.50 ml 2665.75 ml Exam HEENT exam; supple neck, positive JVD. No lymphadenopathy. Midline trachea. No thyromegaly. Tracheostomy in place. Chest examination; diminished breath sounds bilaterally. No added sound. S1- S2 audible, irregular rhythm. There is a pacemaker in the left chest wall. There is a hemodialysis catheter in the right subclavian area. Abdomen exam; soft, bowel sounds are absent. No organomegaly felt. Extremity exam; trace peripheral edema. Next FULL TIME BABYSITTER exam; patient is sedated. Results Result Diagram: 01/29/17 0515 01/29/17 0515 Results 24 hrs Laboratory Tests Test 01/28/17 12:36 01/28/17 18:02 01/28/17 18:11 01/28/17 18:19 Bedside Glucose 82 27 *L 226 H 172 Test 01/28/17 18:47 01/28/17 19:50 01/28/17 20:14 01/28/17 20:40 Bedside Glucose 114 54 L Blood Gas Specimen Source Blood arterial Arterial Blood Date Drawn 01/28/2017 7:47:57 PM Arterial Blood pH (Temp corrected) 7.084 *L Arterial Blood pCO2 (Temp correct) 41.9 Arterial Blood pO2 (Temp corrected) 51.3 *L Arterial Blood HCO3 12.3 L Arterial Blood Base Excess -16.9 L Arterial Blood Oxygen Saturation 67.4 L Ivan Test N/A Arterial Blood Gas Puncture Site Left Radial Arterial Blood Carboxyhemoglobin 0.3 Arterial Blood Methemoglobin 0.5 Blood Gas A-a O2 Differential 619.8 H Oxyhemoglobin Percent 66.9 L Total Hemoglobin 10.8 L Blood Gas Temperature 37.0 Blood Gas Modality AMBU BAG FiO2 100.0 Blood Gas High PEEP Setting 15.0 Blood Gas Critical Value Read Back M BRISSA RN Blood Gas Notified Whom Epifanio SURESH DRILLER HAND Blood Gas Notified Time 01/28/2017 7:58:42 PM Glucose Level 140 # Lactic Acid Level 16.7 *H Test 01/28/17 20:41 01/28/17 22:37 01/28/17 23:00 01/28/17 23:08 Bedside Glucose 139 55 L 146 Blood Gas Specimen Source Blood arterial Arterial Blood Date Drawn 01/28/2017 11:10:06 PM Arterial Blood pH (Temp corrected) 7.055 *L Arterial Blood pCO2 (Temp correct) 39.5 Arterial Blood pO2 (Temp corrected) 54.7 *L Arterial Blood HCO3 10.8 L Arterial Blood Base Excess -18.5 L Arterial Blood Oxygen Saturation 72.1 L Ivan Test N/A Arterial Blood Gas Puncture Site A-Line Arterial Blood Carboxyhemoglobin 0.3 Arterial Blood Methemoglobin 0.7 Blood Gas A-a O2 Differential 618.8 H Oxyhemoglobin Percent 71.4 L Total Hemoglobin 9.8 L Blood Gas Temperature 37.0 Blood Gas Respiration Rate 20.0 Blood Gas Actual Respiration Rate 37 Blood Gas Modality VENT - BIPHASIC FiO2 100.0 Blood Gas Inspiratory Time 0.92 Blood Gas High PEEP Setting 30.0 Blood Gas Low PEEP Setting 15.0 Blood Gas Inspiratory Pressure 32.0 Blood Gas Pressure Support 10 Blood Gas Critical Value Read Back MLEX RN Blood Gas Notified Whom PRINCESS Blood Gas Notified Time 01/28/2017 11:20:23 PM Test 01/29/17 00:05 01/29/17 00:49 01/29/17 01:38 01/29/17 02:11 Bedside Glucose 80 77 65 L Blood Gas Specimen Source Blood arterial Arterial Blood Date Drawn 01/29/2017 2:05:00 AM Arterial Blood pH (Temp corrected) 7.018 *L Arterial Blood pCO2 (Temp correct) 42.6 Arterial Blood pO2 (Temp corrected) 61.1 L Arterial Blood HCO3 10.7 L Arterial Blood Base Excess -19.4 L Arterial Blood Oxygen Saturation 75.5 L Ivan Test N/A Arterial Blood Gas Puncture Site A-Line Arterial Blood Carboxyhemoglobin 0.3 Arterial Blood Methemoglobin 0.6 Blood Gas A-a O2 Differential 609.3 H Oxyhemoglobin Percent 74.8 L Total Hemoglobin 10.2 L Blood Gas Temperature 37.0 Blood Gas Respiration Rate 20.0 Blood Gas Actual Respiration Rate 26 Blood Gas Modality VENT - BIPHASIC FiO2 100.0 Blood Gas High PEEP Setting 30.0 Blood Gas Low PEEP Setting 15.0 Blood Gas Inspiratory Pressure 32.0 Blood Gas Pressure Support 10 Blood Gas Critical Value Read Back Carolina BRUMFIELD RN Blood Gas Notified Whom Epifanio SURESH RCP Blood Gas Notified Time 01/29/2017 2:15:49 AM Test 01/29/17 03:09 01/29/17 05:14 01/29/17 05:15 01/29/17 07:00 Bedside Glucose 152 117 White Blood Count 20.6 #H Red Blood Count 3.07 L Hemoglobin 8.6 L Hematocrit 29.9 L Mean Corpuscular Volume 97.4 Mean Corpuscular Hemoglobin 28.0 L Mean Corpuscular Hemoglobin Concent 28.8 L Red Cell Distribution Width 20.5 H Platelet Count 305 Mean Platelet Volume 12.4 H Neutrophils % 89.0 H Lymphocytes % 7.0 L Monocytes % 3.0 Eosinophils % Basophils % Myelocytes % (Manual) 1.0 H Nucleated Red Blood Cells % 8 H Neutrophils # 18.3 H Lymphocytes # 1.4 Monocytes # 0.6 Eosinophils # Basophils # Myelocytes # Pending Nucleated Red Blood Cells # Sodium Level 147 H Potassium Level 4.6 Chloride Level 95 L Carbon Dioxide Level 7 #*L Anion Gap 50 #H Blood Urea Nitrogen 52 H Creatinine 2.83 H Glucose Level 261 #H Lactic Acid Level > 24.0 *H Calcium Level 7.7 L Phosphorus Level 8.3 #H Magnesium Level 2.0 Blood Gas Specimen Source Blood arterial Arterial Blood Date Drawn 01/29/2017 7:05:04 AM Arterial Blood pH (Temp corrected) 6.960 *L Arterial Blood pCO2 (Temp correct) 39.4 Arterial Blood pO2 (Temp corrected) 79.1 L Arterial Blood HCO3 8.7 *L Arterial Blood Base Excess -22.3 L Arterial Blood Oxygen Saturation 86.6 L Ivan Test N/A Arterial Blood Gas Puncture Site A-Line Arterial Blood Carboxyhemoglobin 0.3 Arterial Blood Methemoglobin 0.6 Blood Gas A-a O2 Differential 594.5 H Oxyhemoglobin Percent 85.8 L Total Hemoglobin 10.4 L Blood Gas Temperature 37.0 Blood Gas Respiration Rate 20.0 Blood Gas Actual Respiration Rate 25 Blood Gas Modality VENT - BIPHASIC FiO2 100.0 Blood Gas Inspiratory Time 1.5 Blood Gas High PEEP Setting 30.0 Blood Gas Low PEEP Setting 15.0 Blood Gas Pressure Support 10 Blood Gas Critical Value Read Back Annette BRUMFIELD RN Blood Gas Notified Whom Annette ARTEAGA Blood Gas Notified Time 01/29/2017 7:23:40 AM Test 01/29/17 07:58 Bedside Glucose 225 H Medications Medications Current Medications Acetaminophen (Tylenol Liquid) 650 mg Q4H PRN GTB PAIN OR TEMP ABOVE 38C Last administered on 01/23/17 04:56; Admin Dose 650 MG; Start 01/07/17 at 13:00 Diphenhydramine HCl (Benadryl) 25 mg Q6H PRN GTB ITCHING Last administered on 05:10; Admin Dose 25 MG; Start 01/07/17 at 13:00 Multivit/Ca Carb/ B Cmplx/FA/Prenat (Macrina-Brigitte) 1 tab DAILY GTB Last administered on 01/29/17 10:13; Admin Dose 1 TAB; Start 01/08/17 at 09:00 Ondansetron HCl (Zofran Tab) 4 mg Q4H PRN GTB NAUSEA AND/OR VOMITING Last administered on 01/23/17 13:25; Admin Dose 4 MG; Start 01/07/17 at 13:00 Miscellaneous Information 1 ea NOTE XX ; Start 01/07/17 at 23:45 Glucose (Glutose) 15 gm Q15M PRN PO DECREASED GLUCOSE; Start 01/07/17 at 23:45 Glucose (Glutose) 22.5 gm Q15M PRN PO DECREASED GLUCOSE; Start 01/07/17 at 23:45 Dextrose (D50w Syringe) 25 ml Q15M PRN IV DECREASED GLUCOSE Last administered on 01/29/17 01:42; Admin Dose 25 ML; Start 01/07/17 at 23:45 Dextrose (D50w Syringe) 50 ml Q15M PRN IV DECREASED GLUCOSE Last administered on 01/28/17 22:45; Admin Dose 50 ML; Start 01/07/17 at 23:45 Glucagon (Glucagen) 1 mg Q15M PRN IM DECREASED GLUCOSE; Start 01/07/17 at 23:45 Glucose (Glutose) 15 gm Q15M PRN BUCCAL DECREASED GLUCOSE; Start 01/07/17 at 23: 45 Miscellaneous Information ([facility]) This patient lopez... PRN PRN XX WOUND CARE; Start 01/08/17 at 07:30 Insulin Aspart (Novolog Insulin Pen) NOVOLOG *MILD* ALGORI... Q6 SC Last administered on 01/27/17 12:09; Admin Dose 2 UNIT; Start 01/08/17 at 12:00 Heparin Sodium (Porcine) (Heparin (5000 Units/0.5 ml)) 5,000 unit BID SC Last administered on 01/29/17 10:14; Admin Dose 5,000 UNIT; Start 01/10/17 at 21:00 Lorazepam (Ativan) 1 mg Q6H PRN PO Agitation Last administered on 01/19/17 08: 10; Admin Dose 1 MG; Start 01/10/17 at 13:30; Status Future Hold Escitalopram Oxalate 10 mg 10 mg DAILY GTB Last administered on 01/29/17 10:13 ; Admin Dose 10 MG; Start 01/13/17 at 09:00 Norepinephrine/ Dextrose (Levophed/D5W) 500 ml @ 1.87 mls/hr TITRATE IV Last administered on 01/29/17 10:13; Admin Dose 56.25 MLS/HR; Start 01/15/17 at 23:45 Midodrine (Proamatine) 10 mg BID@,17 NGT Last administered on 01/29/17 10:14 ; Admin Dose 10 MG; Start 01/18/17 at 09:00 Oxycodone HCl (Roxicodone) 5 mg Q4H PRN PO PAIN Last administered on 01/28/17 09:15; Admin Dose 5 MG; Start 01/18/17 at 12:00 IV Flush (NS 10 ml) 10 ml PRN PRN IV IV PROTOCOL; Start 01/19/17 at 17:00 Metronidazole 500 mg 500 mg Q8 NGT Last administered on 01/29/17 05:18; Admin Dose 500 MG; Start 01/23/17 at 14:00 Fentanyl 100 ml @ 2.5 mls/hr TITRATE IV Last administered on 01/28/17 19:51; Admin Dose 9.5 MLS/HR; Start 01/28/17 at 09:30 Meropenem/Sodium Chloride (Merrem 500mg/50 ml(Pmx)) 50 ml @ 100 mls/hr Q12 IVPB Last administered on 01/28/17 23:10; Admin Dose 100 MLS/HR; Start at 14:00 Linezolid 600 mg 600 mg BID PO Last administered on 01/29/17 10:13; Admin Dose 600 MG; Start 01/28/17 at 12:30 Midazolam HCl (Versed) 50 ml @ 1 mls/hr TITRATE IV Last administered on 06:52; Admin Dose 4 MLS/HR; Start 01/28/17 at 19:30 Methylprednisolone Sodium Succinate 60 mg 60 mg Q6 IV Last administered on 01/29 05:18; Admin Dose 60 MG; Start 01/29/17 at 00:00 Norepinephrine 250 ml @ 1.875 mls/ hr TITRATE IV ; Start 01/29/17 at 01:00; Stop 01/29/17 at 12:00 Sodium Bicarbonate 150 meq/Dextrose 1,150 ml @ 100 mls/hr [id number] IV Last administered on 01/29/17 01:47; Admin Dose 100 MLS/HR; Start 01/29/17 at 00:00 Sodium Bicarbonate 150 meq/Dextrose 1,150 ml @ 100 mls/hr [id number] IV ; Start at 09:00 Phenylephrine HCl 160 mg/Dextrose 500 ml @ 18.75 mls/ hr TITRATE IV Last administered on 01/29/17 06:51; Admin Dose 56.25 MLS/HR; Start 01/29/17 at 07: 00 Vasopressin/ Dextrose (Vasostrict/D5W) 60 ml @ 1.2 mls/hr Q12H IV Last administered on 01/29/17 09:20; Admin Dose 1.2 MLS/HR; Start 01/29/17 at 09:00 JUSTIN LINARES Jan 29, 2017 11:31
[2017-01-29] MEDS ORDERED: ALBUMIN HUMAN 25% 100 ML IV ONE (12:00)
[2017-01-29] MEDS: SODIUM BICARBONATE (IV ADD) 150 MEQ in DEXTROSE 5% 1,000 ML IV SCH ×2 (12:22→22:40)
[2017-01-29] MEDS: MEROPENEM 500MG/50 ML (PMX) 50 ML IVPB SCH ×2 (12:22→21:28)
--- NOTE | 2017-01-29 13:25 | CONS ---
Date/Time of Note Date/Time of Note DATE: 01/29/17 TIME: 13:21 Assessment/Plan Assessment/Plan Chief Complaint/Hosp Course Patient decompensated overnight on multiple pressors and maximum ventilatory support with significant hypoxemia, obtunded in no distress T-max 99.8 T-current 98.6 pulse 151 respirations 20 blood pressure 107/66 saturation 59% on bilevel and FiO2 of 100 WBC 20.6 H&H 8.6 and 29.9 platelets 305 neutrophils 89 Antibiotics: Flagyl Indwelling: PICC line trach PEG right chest permacath Allergy: Erythromycin, vancomycin Antibiotics: Zyvox, meropenem Physical examination: Chronically ill-appearing elderly woman who is in no distress. Head atraumatic normocephalic, sclera nonicteric, neck is supple, tracheostomy present. Chest rise symmetrical, breath sounds diminished basis. Heart S1-S2, tachycardic, irregular. Abdomen soft, bowel tones hypoactive. Extremities mottled, cyanotic Assessment: 1. Severe sepsis with shock and multisystem organ failure 2. Acute on chronic Hypoxemic Resp Failure ==> 2 D ECHO showed R --> L shunting through atrium c/w PFO or ASD 3. Severe acidosis 4. ESRD 5. Atrial fibrillation 6. Anemia Plan: Doing poorly, continue present care, antibiotics, add empiric antifungal coverage, continue vent management per pulmonary, prognosis poor Discussed with staff Discussed with family at bedside Problems: Consultation Date/Type/Reason Admit Date/Time Jan 07, 2017 at 12:43 Initial Consult Date 01/08/17 Type of Consultation: id Referring Provider: YAYO EDGAR DO Exam/Review of Systems Vital Signs Vitals Vital Signs Date Time Temp Pulse Resp B/P Pulse Ox O2 Delivery O2 Flow Rate FiO2 01/29/17 11:00 151 22 107/66 59 Mechanical Ventilator 01/29/17 08:00 100 01/29/17 08:00 98.6 Intake and Output 01/28/17 01/28/17 01/29/17 15:00 23:00 07:00 Intake Total 1152.5 ml 958.75 ml 2500.50 ml Output Total 50 ml 15 ml 0 ml Balance 1102.5 ml 943.75 ml 2500.50 ml Results Result Diagram: 01/29/17 0515 01/29/17 0515 Results 24 hrs Laboratory Tests Test 01/28/17 18:02 01/28/17 18:11 01/28/17 18:19 01/28/17 18:47 Bedside Glucose 27 *L 226 H 172 114 Test 01/28/17 19:50 01/28/17 20:14 01/28/17 20:40 01/28/17 20:41 Blood Gas Specimen Source Blood arterial Arterial Blood Date Drawn 01/28/2017 7:47:57 PM Arterial Blood pH (Temp corrected) 7.084 *L Arterial Blood pCO2 (Temp correct) 41.9 Arterial Blood pO2 (Temp corrected) 51.3 *L Arterial Blood HCO3 12.3 L Arterial Blood Base Excess -16.9 L Arterial Blood Oxygen Saturation 67.4 L Ivan Test N/A Arterial Blood Gas Puncture Site Left Radial Arterial Blood Carboxyhemoglobin 0.3 Arterial Blood Methemoglobin 0.5 Blood Gas A-a O2 Differential 619.8 H Oxyhemoglobin Percent 66.9 L Total Hemoglobin 10.8 L Blood Gas Temperature 37.0 Blood Gas Modality AMBU BAG FiO2 100.0 Blood Gas High PEEP Setting 15.0 Blood Gas Critical Value Read Back Carolina BRUMFIELD RN Blood Gas Notified Whom Epifanio SURESH [employer] COUNSELOR Blood Gas Notified Time 01/28/2017 7:58:42 PM Bedside Glucose 54 L 139 Glucose Level 140 # Lactic Acid Level 16.7 *H Test 01/28/17 22:37 01/28/17 23:00 01/28/17 23:08 01/29/17 00:05 Bedside Glucose 55 L 146 80 Blood Gas Specimen Source Blood arterial Arterial Blood Date Drawn 01/28/2017 11:10:06 PM Arterial Blood pH (Temp corrected) 7.055 *L Arterial Blood pCO2 (Temp correct) 39.5 Arterial Blood pO2 (Temp corrected) 54.7 *L Arterial Blood HCO3 10.8 L Arterial Blood Base Excess -18.5 L Arterial Blood Oxygen Saturation 72.1 L Ivan Test N/A Arterial Blood Gas Puncture Site A-Line Arterial Blood Carboxyhemoglobin 0.3 Arterial Blood Methemoglobin 0.7 Blood Gas A-a O2 Differential 618.8 H Oxyhemoglobin Percent 71.4 L Total Hemoglobin 9.8 L Blood Gas Temperature 37.0 Blood Gas Respiration Rate 20.0 Blood Gas Actual Respiration Rate 37 Blood Gas Modality VENT - BIPHASIC FiO2 100.0 Blood Gas Inspiratory Time 0.92 Blood Gas High PEEP Setting 30.0 Blood Gas Low PEEP Setting 15.0 Blood Gas Inspiratory Pressure 32.0 Blood Gas Pressure Support 10 Blood Gas Critical Value Read Back MLEX GUADALUPE Blood Gas Notified Whom PRINCESS Blood Gas Notified Time 01/28/2017 11:20:23 PM Test 01/29/17 00:49 01/29/17 01:38 01/29/17 02:11 01/29/17 03:09 Bedside Glucose 77 65 L 152 Blood Gas Specimen Source Blood arterial Arterial Blood Date Drawn 01/29/2017 2:05:00 AM Arterial Blood pH (Temp corrected) 7.018 *L Arterial Blood pCO2 (Temp correct) 42.6 Arterial Blood pO2 (Temp corrected) 61.1 L Arterial Blood HCO3 10.7 L Arterial Blood Base Excess -19.4 L Arterial Blood Oxygen Saturation 75.5 L Ivan Test N/A Arterial Blood Gas Puncture Site A-Line Arterial Blood Carboxyhemoglobin 0.3 Arterial Blood Methemoglobin 0.6 Blood Gas A-a O2 Differential 609.3 H Oxyhemoglobin Percent 74.8 L Total Hemoglobin 10.2 L Blood Gas Temperature 37.0 Blood Gas Respiration Rate 20.0 Blood Gas Actual Respiration Rate 26 Blood Gas Modality VENT - BIPHASIC FiO2 100.0 Blood Gas High PEEP Setting 30.0 Blood Gas Low PEEP Setting 15.0 Blood Gas Inspiratory Pressure 32.0 Blood Gas Pressure Support 10 Blood Gas Critical Value Read Back Carolina BRUMFIELD RN Blood Gas Notified Whom Epifanio SURESH [facility] Blood Gas Notified Time 01/29/2017 2:15:49 AM Test 01/29/17 05:14 01/29/17 05:15 01/29/17 07:00 01/29/17 07:58 Bedside Glucose 117 225 H White Blood Count 20.6 #H Red Blood Count 3.07 L Hemoglobin 8.6 L Hematocrit 29.9 L Mean Corpuscular Volume 97.4 Mean Corpuscular Hemoglobin 28.0 L Mean Corpuscular Hemoglobin Concent 28.8 L Red Cell Distribution Width 20.5 H Platelet Count 305 Mean Platelet Volume 12.4 H Neutrophils % 89.0 H Lymphocytes % 7.0 L Monocytes % 3.0 Eosinophils % Basophils % Myelocytes % (Manual) 1.0 H Nucleated Red Blood Cells % 8 H Neutrophils # 18.3 H Lymphocytes # 1.4 Monocytes # 0.6 Eosinophils # Basophils # Myelocytes # 0.2 H Nucleated Red Blood Cells # Sodium Level 147 H Potassium Level 4.6 Chloride Level 95 L Carbon Dioxide Level 7 #*L Anion Gap 50 #H Blood Urea Nitrogen 52 H Creatinine 2.83 H Glucose Level 261 #H Lactic Acid Level > 24.0 *H Calcium Level 7.7 L Phosphorus Level 8.3 #H Magnesium Level 2.0 Blood Gas Specimen Source Blood arterial Arterial Blood Date Drawn 01/29/2017 7:05:04 AM Arterial Blood pH (Temp corrected) 6.960 *L Arterial Blood pCO2 (Temp correct) 39.4 Arterial Blood pO2 (Temp corrected) 79.1 L Arterial Blood HCO3 8.7 *L Arterial Blood Base Excess -22.3 L Arterial Blood Oxygen Saturation 86.6 L Ivan Test N/A Arterial Blood Gas Puncture Site A-Line Arterial Blood Carboxyhemoglobin 0.3 Arterial Blood Methemoglobin 0.6 Blood Gas A-a O2 Differential 594.5 H Oxyhemoglobin Percent 85.8 L Total Hemoglobin 10.4 L Blood Gas Temperature 37.0 Blood Gas Respiration Rate 20.0 Blood Gas Actual Respiration Rate 25 Blood Gas Modality VENT - BIPHASIC FiO2 100.0 Blood Gas Inspiratory Time 1.5 Blood Gas High PEEP Setting 30.0 Blood Gas Low PEEP Setting 15.0 Blood Gas Pressure Support 10 Blood Gas Critical Value Read Back Annette BRUMFIELD RN Blood Gas Notified Whom Annette ARTEAGA Blood Gas Notified Time 01/29/2017 7:23:40 AM Test 01/29/17 11:38 Bedside Glucose 265 H Medications Medications Current Medications Acetaminophen (Tylenol Liquid) 650 mg Q4H PRN GTB PAIN OR TEMP ABOVE 38C Last administered on 01/23/17 04:56; Admin Dose 650 MG; Start 01/07/17 at 13:00 Diphenhydramine HCl (Benadryl) 25 mg Q6H PRN GTB ITCHING Last administered on 05:10; Admin Dose 25 MG; Start 01/07/17 at 13:00 Multivit/Ca Carb/ B Cmplx/FA/Prenat (Macrina-Brigitte) 1 tab DAILY GTB Last administered on 01/29/17 10:13; Admin Dose 1 TAB; Start 01/08/17 at 09:00 Ondansetron HCl (Zofran Tab) 4 mg Q4H PRN GTB NAUSEA AND/OR VOMITING Last administered on 01/23/17 13:25; Admin Dose 4 MG; Start 01/07/17 at 13:00 Miscellaneous Information 1 ea NOTE XX ; Start 01/07/17 at 23:45 Glucose (Glutose) 15 gm Q15M PRN PO DECREASED GLUCOSE; Start 01/07/17 at 23:45 Glucose (Glutose) 22.5 gm Q15M PRN PO DECREASED GLUCOSE; Start 01/07/17 at 23:45 Dextrose (D50w Syringe) 25 ml Q15M PRN IV DECREASED GLUCOSE Last administered on 01/29/17 01:42; Admin Dose 25 ML; Start 01/07/17 at 23:45 Dextrose (D50w Syringe) 50 ml Q15M PRN IV DECREASED GLUCOSE Last administered on 01/28/17 22:45; Admin Dose 50 ML; Start 01/07/17 at 23:45 Glucagon (Glucagen) 1 mg Q15M PRN IM DECREASED GLUCOSE; Start 01/07/17 at 23:45 Glucose (Glutose) 15 gm Q15M PRN BUCCAL DECREASED GLUCOSE; Start 01/07/17 at 23: 45 Miscellaneous Information [facility] This patient lopez... PRN PRN XX WOUND CARE; Start 01/08/17 at 07:30 Insulin Aspart (Novolog Insulin Pen) NOVOLOG *MILD* ALGORI... Q6 SC Last administered on 01/27/17 12:09; Admin Dose 2 UNIT; Start 01/08/17 at 12:00 Heparin Sodium (Porcine) (Heparin (5000 Units/0.5 ml)) 5,000 unit BID SC Last administered on 01/29/17 10:14; Admin Dose 5,000 UNIT; Start 01/10/17 at 21:00 Lorazepam (Ativan) 1 mg Q6H PRN PO Agitation Last administered on 01/19/17 08: 10; Admin Dose 1 MG; Start 01/10/17 at 13:30; Status Future Hold Escitalopram Oxalate 10 mg 10 mg DAILY GTB Last administered on 01/29/17 10:13 ; Admin Dose 10 MG; Start 01/13/17 at 09:00 Norepinephrine/ Dextrose (Levophed/D5W) 500 ml @ 1.87 mls/hr TITRATE IV Last administered on 01/29/17 10:13; Admin Dose 56.25 MLS/HR; Start 01/15/17 at 23:45 Midodrine (Proamatine) 10 mg BID@09,17 NGT Last administered on 01/29/17 10:14 ; Admin Dose 10 MG; Start 01/18/17 at 09:00 Oxycodone HCl (Roxicodone) 5 mg Q4H PRN PO PAIN Last administered on 01/28/17 09:15; Admin Dose 5 MG; Start 01/18/17 at 12:00 IV Flush (NS 10 ml) 10 ml PRN PRN IV IV PROTOCOL; Start 01/19/17 at 17:00 Metronidazole 500 mg 500 mg Q8 NGT Last administered on 01/29/17 05:18; Admin Dose 500 MG; Start 01/23/17 at 14:00 Fentanyl 100 ml @ 2.5 mls/hr TITRATE IV Last administered on 01/28/17 19:51; Admin Dose 9.5 MLS/HR; Start 01/28/17 at 09:30 Meropenem/Sodium Chloride (Merrem 500mg/50 ml(Pmx)) 50 ml @ 100 mls/hr Q12 IVPB Last administered on 01/29/17 12:22; Admin Dose 100 MLS/HR; Start at 14:00 Linezolid 600 mg 600 mg BID PO Last administered on 01/29/17 10:13; Admin Dose 600 MG; Start 01/28/17 at 12:30 Midazolam HCl (Versed) 50 ml @ 1 mls/hr TITRATE IV Last administered on 06:52; Admin Dose 4 MLS/HR; Start 01/28/17 at 19:30 Methylprednisolone Sodium Succinate 60 mg 60 mg Q6 IV Last administered on 01/29 12:22; Admin Dose 60 MG; Start 01/29/17 at 00:00 Sodium Bicarbonate 150 meq/Dextrose 1,150 ml @ 100 mls/hr [id number] IV Last administered on 01/29/17 12:22; Admin Dose 100 MLS/HR; Start 01/29/17 at 09:00 Phenylephrine HCl 160 mg/Dextrose 500 ml @ 18.75 mls/ hr TITRATE IV Last administered on 01/29/17 06:51; Admin Dose 56.25 MLS/HR; Start 01/29/17 at 07: 00 Vasopressin/ Dextrose (Vasostrict/D5W) 60 ml @ 1.2 mls/hr Q12H IV Last administered on 01/29/17 09:20; Admin Dose 1.2 MLS/HR; Start 01/29/17 at 09:00 Digoxin (Digoxin) 250 mcg ONCE ONCE IV ; Start 01/29/17 at 13:30; Stop at 13:31 AI FUNEZ NP Jan 29, 2017 13:25
[2017-01-29] MEDS ORDERED: DIGOXIN 500 MCG INJ IV ONE (13:30)
[2017-01-29] MEDS ORDERED: CASPOFUNGIN 70 MG in SOD CHLORIDE 0.9% 250 ML IVPB ONE (13:30)
--- NOTE | 2017-01-29 14:19 | PN ---
Date/Time of Note Date/Time of Note DATE: 01/29/17 TIME: 14:15 Assessment/Plan VTE Prophylaxis VTE Prophylaxis Intervention: other Lines/Catheters IV [facility] Type (from [facility] A Line Urinary Cath still in place: No Assessment/Plan Chief Complaint/Hosp Course A/P: 1. acute on chronic hypoxemic hypercapnic respiratory failure: s/p trach: vent dep. with severe hypoxemia. requiring [id number]% O2 . 2. Pafib; 3. HX Sick sinus syndrome: s/p PPM: pacemaker was interrogated and personally reviewed on 01/08/17 with normal functioning pacemaker. 4. pneumonia 5. ESRD on HD 6. HX HTN: stable now 7. severe anemia: s/p multiple transfusion 8. severe hypoxemia 9. SHOCK: septic shock and still on levophed drip 10. pulmonary HTN: PA pressure about 75 mmHg on echo 11. evidence of R ---> L shunting on echo with bubble study c/ w PFO/ ASD 12. severe sepsis and shock 13. severe metabolic acidosis cont vent support not fully anticoagulated due to concerns about bleeding and severe anemia. abx as per IM/ ID and pulm team CT pulm angio was negative for PE. CONT HD as tolerated but due to severe hypotension would be very difficult to do so. HR has remained stable. Will monitor on tele correct lytes prn transfusion prn prognosis is very poor. d/ w daughter will give one dose of dig to control HR better cont ICU care more than 40 minutes of critical care time was spent in management and treatment of this critically ill pt, excluding any procedures. Problems: Subjective 24 Hr Interval Summary Free Text/Dictation CARDIOLOGY FOLLOW UP PROGRESS NOTE/ ICU NOTE: SUBJECTIVE: d/w staff and rhythm was reviewed. d/w daughter extensively. pt has become severely more hypoxemic and hypotensive and on multiple pressors. she has converted to Afib RVR. pt still with severe hypoxemia and currently on 100% O2 now pt is still s/p trach on vent in ICU and on multiple pressors now. pt is lethargic d/ w multiple physicians. OBJECTIVE. General: s/p trach on vent. HEENT: NC/AT. pupils are equal. round. NECK: s/p trach. no stridor. CV: irregularly irregular. systolic murmur; no gallop or rubs. PULM: no wheezing but + rhonchi anteriorly diffusely GI: SOFT, NT, ND, no rebound or guarding . s/p PEG Extremity: + B/L LE edema. no clubbing. neuro: lethargic. Psych: unable to assess rectal: deferred Derm: + echymosis chest: s/p R mastectomy and HD ACCESS in place. echo 01/24/17 reviewed personally: 1. Normal left ventricular systolic function. Normal left ventricular cavity size. Mild concentric left ventricular hypertrophy. Ejection fraction is visually estimated at 55 %. Tissue Doppler/Mitral Doppler indices are consistent with impaired relaxation (Stage I diastolic dysfunction). 2. There is mild enlargement of left atrium. 3. There is mild enlargement of right atrium. 4. Mild mitral leaflet calcification. Mild mitral annular calcification. Trace mitral regurgitation. 5. Aortic sclerosis without stenosis. Mild aortic valve regurgitation. 6. Normal appearance of the tricuspid valve. Estimated peak PA systolic pressure 75 mmHg. There is moderate tricuspid regurgitation. 7. severe pulm HTN. 8. Inferior vena cava without respiratory collapse, however, patient on ventilator. 9. Normal pericardium with no significant pericardial effusion. 10. agitated saline ( bubble study) shows R --> L shunting through atrium c/w PFO or ASD. Exam/Review of Systems Vital Signs Vitals Vital Signs Date Time Temp Pulse Resp B/P Pulse Ox O2 Delivery O2 Flow Rate FiO2 01/29/17 12:15 144 01/29/17 11:00 22 107/66 59 Mechanical Ventilator 01/29/17 08:00 100 01/29/17 08:00 98.6 Intake and Output 01/28/17 01/28/17 01/29/17 15:00 23:00 07:00 Intake Total 1152.5 ml 958.75 ml 2500.50 ml Output Total 50 ml 15 ml 0 ml Balance 1102.5 ml 943.75 ml 2500.50 ml Results Result Diagram: 01/29/17 0515 01/29/17 0515 Results 24 hrs Laboratory Tests Test 01/28/17 18:02 01/28/17 18:11 01/28/17 18:19 01/28/17 18:47 Bedside Glucose 27 *L 226 H 172 114 Test 01/28/17 19:50 01/28/17 20:14 01/28/17 20:40 01/28/17 20:41 Blood Gas Specimen Source Blood arterial Arterial Blood Date Drawn 01/28/2017 7:47:57 PM Arterial Blood pH (Temp corrected) 7.084 *L Arterial Blood pCO2 (Temp correct) 41.9 Arterial Blood pO2 (Temp corrected) 51.3 *L Arterial Blood HCO3 12.3 L Arterial Blood Base Excess -16.9 L Arterial Blood Oxygen Saturation 67.4 L Ivan Test N/A Arterial Blood Gas Puncture Site Left Radial Arterial Blood Carboxyhemoglobin 0.3 Arterial Blood Methemoglobin 0.5 Blood Gas A-a O2 Differential 619.8 H Oxyhemoglobin Percent 66.9 L Total Hemoglobin 10.8 L Blood Gas Temperature 37.0 Blood Gas Modality AMBU BAG FiO2 100.0 Blood Gas High PEEP Setting 15.0 Blood Gas Critical Value Read Back Carolina BRUMFIELD RN Blood Gas Notified Whom Epifanio RESENDEZP Blood Gas Notified Time 01/28/2017 7:58:42 PM Bedside Glucose 54 L 139 Glucose Level 140 # Lactic Acid Level 16.7 *H Test 01/28/17 22:37 01/28/17 23:00 01/28/17 23:08 01/29/17 00:05 Bedside Glucose 55 L 146 80 Blood Gas Specimen Source Blood arterial Arterial Blood Date Drawn 01/28/2017 11:10:06 PM Arterial Blood pH (Temp corrected) 7.055 *L Arterial Blood pCO2 (Temp correct) 39.5 Arterial Blood pO2 (Temp corrected) 54.7 *L Arterial Blood HCO3 10.8 L Arterial Blood Base Excess -18.5 L Arterial Blood Oxygen Saturation 72.1 L Ivan Test N/A Arterial Blood Gas Puncture Site A-Line Arterial Blood Carboxyhemoglobin 0.3 Arterial Blood Methemoglobin 0.7 Blood Gas A-a O2 Differential 618.8 H Oxyhemoglobin Percent 71.4 L Total Hemoglobin 9.8 L Blood Gas Temperature 37.0 Blood Gas Respiration Rate 20.0 Blood Gas Actual Respiration Rate 37 Blood Gas Modality VENT - BIPHASIC FiO2 100.0 Blood Gas Inspiratory Time 0.92 Blood Gas High PEEP Setting 30.0 Blood Gas Low PEEP Setting 15.0 Blood Gas Inspiratory Pressure 32.0 Blood Gas Pressure Support 10 Blood Gas Critical Value Read Back FABRICIO GUADALUPE Blood Gas Notified Whom Blood Gas Notified Time 01/28/2017 11:20:23 PM Test 01/29/17 00:49 01/29/17 01:38 01/29/17 02:11 01/29/17 03:09 Bedside Glucose 77 65 L 152 Blood Gas Specimen Source Blood arterial Arterial Blood Date Drawn 01/29/2017 2:05:00 AM Arterial Blood pH (Temp corrected) 7.018 *L Arterial Blood pCO2 (Temp correct) 42.6 Arterial Blood pO2 (Temp corrected) 61.1 L Arterial Blood HCO3 10.7 L Arterial Blood Base Excess -19.4 L Arterial Blood Oxygen Saturation 75.5 L Ivan Test N/A Arterial Blood Gas Puncture Site A-Line Arterial Blood Carboxyhemoglobin 0.3 Arterial Blood Methemoglobin 0.6 Blood Gas A-a O2 Differential 609.3 H Oxyhemoglobin Percent 74.8 L Total Hemoglobin 10.2 L Blood Gas Temperature 37.0 Blood Gas Respiration Rate 20.0 Blood Gas Actual Respiration Rate 26 Blood Gas Modality VENT - BIPHASIC FiO2 100.0 Blood Gas High PEEP Setting 30.0 Blood Gas Low PEEP Setting 15.0 Blood Gas Inspiratory Pressure 32.0 Blood Gas Pressure Support 10 Blood Gas Critical Value Read Back M BRISSA GUADALUPE Blood Gas Notified Whom Epifanio SURESH RCP Blood Gas Notified Time 01/29/2017 2:15:49 AM Test 01/29/17 05:14 01/29/17 05:15 01/29/17 07:00 01/29/17 07:58 Bedside Glucose 117 225 H White Blood Count 20.6 #H Red Blood Count 3.07 L Hemoglobin 8.6 L Hematocrit 29.9 L Mean Corpuscular Volume 97.4 Mean Corpuscular Hemoglobin 28.0 L Mean Corpuscular Hemoglobin Concent 28.8 L Red Cell Distribution Width 20.5 H Platelet Count 305 Mean Platelet Volume 12.4 H Neutrophils % 89.0 H Lymphocytes % 7.0 L Monocytes % 3.0 Eosinophils % Basophils % Myelocytes % (Manual) 1.0 H Nucleated Red Blood Cells % 8 H Neutrophils # 18.3 H Lymphocytes # 1.4 Monocytes # 0.6 Eosinophils # Basophils # Myelocytes # 0.2 H Nucleated Red Blood Cells # Sodium Level 147 H Potassium Level 4.6 Chloride Level 95 L Carbon Dioxide Level 7 #*L Anion Gap 50 #H Blood Urea Nitrogen 52 H Creatinine 2.83 H Glucose Level 261 #H Lactic Acid Level > 24.0 *H Calcium Level 7.7 L Phosphorus Level 8.3 #H Magnesium Level 2.0 Blood Gas Specimen Source Blood arterial Arterial Blood Date Drawn 01/29/2017 7:05:04 AM Arterial Blood pH (Temp corrected) 6.960 *L Arterial Blood pCO2 (Temp correct) 39.4 Arterial Blood pO2 (Temp corrected) 79.1 L Arterial Blood HCO3 8.7 *L Arterial Blood Base Excess -22.3 L Arterial Blood Oxygen Saturation 86.6 L Ivan Test N/A Arterial Blood Gas Puncture Site A-Line Arterial Blood Carboxyhemoglobin 0.3 Arterial Blood Methemoglobin 0.6 Blood Gas A-a O2 Differential 594.5 H Oxyhemoglobin Percent 85.8 L Total Hemoglobin 10.4 L Blood Gas Temperature 37.0 Blood Gas Respiration Rate 20.0 Blood Gas Actual Respiration Rate 25 Blood Gas Modality VENT - BIPHASIC FiO2 100.0 Blood Gas Inspiratory Time 1.5 Blood Gas High PEEP Setting 30.0 Blood Gas Low PEEP Setting 15.0 Blood Gas Pressure Support 10 Blood Gas Critical Value Read Back Annette BRUMFIELD RN Blood Gas Notified Whom Annette ARTEAGA Blood Gas Notified Time 01/29/2017 7:23:40 AM Test 01/29/17 11:38 Bedside Glucose 265 H Medications Medications Current Medications Acetaminophen (Tylenol Liquid) 650 mg Q4H PRN GTB PAIN OR TEMP ABOVE 38C Last administered on 01/23/17 04:56; Admin Dose 650 MG; Start 01/07/17 at 13:00 Diphenhydramine HCl (Benadryl) 25 mg Q6H PRN GTB ITCHING Last administered on 05:10; Admin Dose 25 MG; Start 01/07/17 at 13:00 Multivit/Ca Carb/ B Cmplx/FA/Prenat (Macrina-Brigitte) 1 tab DAILY GTB Last administered on 01/29/17 10:13; Admin Dose 1 TAB; Start 01/08/17 at 09:00 Ondansetron HCl (Zofran Tab) 4 mg Q4H PRN GTB NAUSEA AND/OR VOMITING Last administered on 01/23/17 13:25; Admin Dose 4 MG; Start 01/07/17 at 13:00 Miscellaneous Information 1 ea NOTE XX ; Start 01/07/17 at 23:45 Glucose (Glutose) 15 gm Q15M PRN PO DECREASED GLUCOSE; Start 01/07/17 at 23:45 Glucose (Glutose) 22.5 gm Q15M PRN PO DECREASED GLUCOSE; Start 01/07/17 at 23:45 Dextrose (D50w Syringe) 25 ml Q15M PRN IV DECREASED GLUCOSE Last administered on 01/29/17 01:42; Admin Dose 25 ML; Start 01/07/17 at 23:45 Dextrose (D50w Syringe) 50 ml Q15M PRN IV DECREASED GLUCOSE Last administered on 01/28/17 22:45; Admin Dose 50 ML; Start 01/07/17 at 23:45 Glucagon (Glucagen) 1 mg Q15M PRN IM DECREASED GLUCOSE; Start 01/07/17 at 23:45 Glucose (Glutose) 15 gm Q15M PRN BUCCAL DECREASED GLUCOSE; Start 01/07/17 at 23: 45 Miscellaneous Information (Pending [facility] Order For Wound Care) This patient lopez... PRN PRN XX WOUND CARE; Start 01/08/17 at 07:30 Insulin Aspart (Novolog Insulin Pen) NOVOLOG *MILD* ALGORI... Q6 SC Last administered on 01/27/17 12:09; Admin Dose 2 UNIT; Start 01/08/17 at 12:00 Heparin Sodium (Porcine) (Heparin (5000 Units/0.5 ml)) 5,000 unit BID SC Last administered on 01/29/17 10:14; Admin Dose 5,000 UNIT; Start 01/10/17 at 21:00 Lorazepam (Ativan) 1 mg Q6H PRN PO Agitation Last administered on 01/19/17 08: 10; Admin Dose 1 MG; Start 01/10/17 at 13:30; Status Future Hold Escitalopram Oxalate 10 mg 10 mg DAILY GTB Last administered on 01/29/17 10:13 ; Admin Dose 10 MG; Start 01/13/17 at 09:00 Norepinephrine/ Dextrose (Levophed/D5W) 500 ml @ 1.87 mls/hr TITRATE IV Last administered on 01/29/17 10:13; Admin Dose 56.25 MLS/HR; Start 01/15/17 at 23:45 Midodrine (Proamatine) 10 mg BID@,17 NGT Last administered on 01/29/17 10:14 ; Admin Dose 10 MG; Start 01/18/17 at 09:00 Oxycodone HCl (Roxicodone) 5 mg Q4H PRN PO PAIN Last administered on 01/28/17 09:15; Admin Dose 5 MG; Start 01/18/17 at 12:00 IV Flush (NS 10 ml) 10 ml PRN PRN IV IV PROTOCOL; Start 01/19/17 at 17:00 Metronidazole 500 mg 500 mg Q8 NGT Last administered on 01/29/17 05:18; Admin Dose 500 MG; Start 01/23/17 at 14:00 Fentanyl 100 ml @ 2.5 mls/hr TITRATE IV Last administered on 01/28/17 19:51; Admin Dose 9.5 MLS/HR; Start 01/28/17 at 09:30 Meropenem/Sodium Chloride (Merrem 500mg/50 ml(Pmx)) 50 ml @ 100 mls/hr Q12 IVPB Last administered on 01/29/17 12:22; Admin Dose 100 MLS/HR; Start at 14:00 Linezolid 600 mg 600 mg BID PO Last administered on 01/29/17 10:13; Admin Dose 600 MG; Start 01/28/17 at 12:30 Midazolam HCl (Versed) 50 ml @ 1 mls/hr TITRATE IV Last administered on 06:52; Admin Dose 4 MLS/HR; Start 01/28/17 at 19:30 Methylprednisolone Sodium Succinate 60 mg 60 mg Q6 IV Last administered on 01/29 12:22; Admin Dose 60 MG; Start 01/29/17 at 00:00 Sodium Bicarbonate 150 meq/Dextrose 1,150 ml @ 100 mls/hr [id number] IV Last administered on 01/29/17 12:22; Admin Dose 100 MLS/HR; Start 01/29/17 at 09:00 Phenylephrine HCl 160 mg/Dextrose 500 ml @ 18.75 mls/ hr TITRATE IV Last administered on 01/29/17 06:51; Admin Dose 56.25 MLS/HR; Start 01/29/17 at 07: 00 Vasopressin 60 unit/Dextrose 60 ml @ 1.2 mls/hr Q12H IV Last administered on 09:20; Admin Dose 1.2 MLS/HR; Start 01/29/17 at 09:00 Caspofungin 50 mg/ Sodium Chloride 250 ml @ 250 mls/hr Q24H IVPB ; Start at 14:30 Caspofungin/ Sodium Chloride (Cancidas/NS) 250 ml @ 250 mls/hr ONCE ONCE IVPB ; Start 01/29/17 at 13:30; Stop 01/29/17 at 14:29 KIAH GARCIA MD Jan 29, 2017 14:19
[2017-01-29] MEDS: FENTAnyl (DRIP) 1000 mcg/100mL 100 ML IV SCH (14:41)
[2017-01-29 17:28] LABS: ABNORMAL IP MESSAGE 1; BASOPHILS % 0.2 % (0.0-2.0); HEMATOCRIT 30.7 % (37.0-47.0); HEMOGLOBIN 8.8 g/dl (12.0-16.0); LYMPHOCYTES # 1.3 10^3/ul (0.8-2.9); LYMPHOCYTES % 5.3 % (15.0-51.0); MEAN CORPUSCULAR HEMOGLOBIN 27.9 pg (29.0-33.0); MEAN CORPUSCULAR HGB CONC 28.7 g/dl (32.0-37.0); MEAN CORPUSCULAR VOLUME 97.5 fl (82.0-101.0); MEAN PLATELET VOLUME 12.5 fl (7.4-10.4); MONOCYTE # 1.3 10^3/ul (0.3-0.9); MONOCYTES % 5.1 % (0.0-11.0); NEUTROPHILS % 85.4 % (39.0-77.0); NUCLEATED RED BLOOD CELLS # 1.6 10^3/ul (0.0-0.0); NUCLEATED RED BLOOD CELLS% 6.6 /100WBC (0.0-0.0); PLATELET COUNT 254 10^3/UL (140-415); RED BLOOD COUNT 3.15 10^6/ul (4.20-5.40); WHITE BLOOD COUNT 24.5 10^3/ul (4.8-10.8)
[2017-01-29 17:33] LABS: POSITIVE DIFF @See below
[2017-01-29 17:44] LABS: Arterial Base Excess -15.7 mmol/L (-3.0-3); Arterial COHb 0.3 % (0.0-3.0); Arterial Fraction of Oxyhgb 86.8 % (93.0-99.0); Arterial HCO3 14.2 mmol/L (22.0-26.0); Arterial MetHb 0.4 % (0.0-1.5); Arterial Total Hemglobin 10.6 g/dl (12.0-18.0); MODE VENT - BIPHASIC
[2017-01-29 17:51] LABS: ALBUMIN 3.8 g/dl (3.3-4.9); ALBUMIN/GLOBULIN RATIO 0.84; BILIRUBIN,DIRECT 0.1 mg/dl (0.00-0.20); BILIRUBIN,INDIRECT 0.2 mg/dl (0-1.1); BILIRUBIN,TOTAL 0.3 mg/dl (0.2-1.3); CALCIUM 7.2 mg/dl (8.4-10.2); CREATININE 1.74 mg/dl (0.44-1.00); POTASSIUM 3.6 mmol/L (3.5-5.1); TOTAL PROTEIN 8.3 g/dl (6.1-8.1)
[2017-01-29] MEDS ORDERED: NA BICARBONATE 8.4% 50 ML SYG IV ONE (18:30)
[2017-01-30] VITALS (48 sets, daily range): BP systolic 27–130; BP diastolic 24–83; PULSE 0–120; RESP 11–24
[2017-01-30] MEDS: METHYLPREDNISOLONE 125 MG INJ IV SCH ×2 (00:16→05:56)
[2017-01-30] MEDS: PHENYLephrine 160 MG in DEXTROSE 5% 484 ML IV SCH (00:43)
[2017-01-30] MEDS: VASOPRESSIN 60 UNIT in DEXTROSE 5% 57 ML IV SCH (04:39)
[2017-01-30 04:54] LABS: AADO2 Arterial 607.2 mmHg (7.0-24.0); Arterial Base Excess -18.2 mmol/L (-3.0-3); Arterial COHb 0.3 % (0.0-3.0); Arterial Fraction of Oxyhgb 62.9 % (93.0-99.0); Arterial HCO3 13.1 mmol/L (22.0-26.0); Arterial MetHb 0.5 % (0.0-1.5); Arterial Total Hemglobin 10.2 g/dl (12.0-18.0); MODE VENT - BIPHASIC
[2017-01-30] MEDS ORDERED: NA BICARBONATE 8.4% 50 ML SYG ONE ×2 (05:01→05:03)
[2017-01-30] MEDS ORDERED: EPINEPHrine 4 MG in DEXTROSE 5% 246 ML IV SCH (05:30)
[2017-01-30] MEDS ORDERED: NA BICARBONATE 8.4% 50 ML SYG IV ONE (05:30)
[2017-01-30 05:34] LABS: ABNORMAL IP MESSAGE 1; HEMATOCRIT 31.1 % (37.0-47.0); HEMOGLOBIN 8.8 g/dl (12.0-16.0); MEAN CORPUSCULAR HEMOGLOBIN 28.7 pg (29.0-33.0); MEAN CORPUSCULAR HGB CONC 28.3 g/dl (32.0-37.0); MEAN CORPUSCULAR VOLUME 101.3 fl (82.0-101.0); MEAN PLATELET VOLUME 12.4 fl (7.4-10.4); NUCLEATED RED BLOOD CELLS% 10.5 /100WBC (0.0-0.0); PLATELET COUNT 230 10^3/UL (140-415); RED BLOOD COUNT 3.07 10^6/ul (4.20-5.40); RED CELL DISTRIBUTION WIDTH 21.2 % (11.5-14.5); WHITE BLOOD COUNT 32.1 10^3/ul (4.8-10.8)
[2017-01-30] MEDS: metroNIDAZOLE 500 MG TAB NGT SCH (05:56)
[2017-01-30 06:00] LABS: AADO2 Arterial 587.8 mmHg (7.0-24.0); Arterial COHb 0.3 % (0.0-3.0); Arterial Fraction of Oxyhgb 74.3 % (93.0-99.0); Arterial HCO3 13.9 mmol/L (22.0-26.0); Arterial MetHb 0.6 % (0.0-1.5); Arterial Total Hemglobin 10.2 g/dl (12.0-18.0); Blood Gas PS 10; MODE VENT - BIPHASIC
[2017-01-30] MEDS: INSULIN ASPART [NOVOLOG] 3 ML PEN SC SCH ×2 (06:00)
[2017-01-30 06:01] LABS: CALCIUM 6.6 mg/dl (8.4-10.2); CREATININE 2.04 mg/dl (0.44-1.00); MAGNESIUM 1.6 mg/dl (1.7-2.5); PHOSPHORUS 7.3 mg/dl (2.5-4.9); POTASSIUM 3.7 mmol/L (3.5-5.1)
[2017-01-30 06:21] LABS: POSITIVE DIFF @See below
[2017-01-30] MEDS: RISEDRONATE 5 MG TAB GTB SCH (07:03)
[2017-01-30 08:47] LABS: ANISOCYTOSIS 2+ (0-0); EOSINOPHILS % (M) 2 % (0-7); ERYTHROBLAST% (NRBC) (M) 12 % (0-0); GIANT THROMBO% (M) 45 % (0-0); MONOCYTES % (M) 3 % (0-11); POIKILOCYTOSIS 3+ (0-0)
[2017-01-30 08:50] LABS: PLATELET ESTIMATE NORMAL
--- NOTE | 2017-01-30 09:25 | PN ---
Date/Time of Note Date/Time of Note DATE: 01/30/17 TIME: 09:11 Assessment/Plan Lines/Catheters IV Catheter Type (from Nrs): A Line Urinary Cath still in place: No Assessment/Plan Chief Complaint/Hosp Course 1. hypoxemic respiratory failure. etiology likely multifactorial, chf, pna,, patent PFO/ASD causing right to left cardiac shunt. shock -CT angios showed interstitial edema pulmonary edema, no evidence of PE -2D echo shows a right to left cardiac shunt possibly from PFO, versus asd -Discussed case with counter tacker, recommends transfer to a higher level of care to determine if shunt needs to be closed and for continuous monitoring via [place] catheter of pulmonary pressure Patient is persistently hypoxemic saturating to 50-60s on 100% FiO2 Case discussed with counter tacker plan Continue current medical management -Follow-up with pulmonary -Attempting transferred to [facility] once hemodynamically stable -Monitor 2. septic shock Etiology likely multifactorial due to recurrence of pneumonia, possible GI source -Patient on pressors, broad-spectrum antibiotics Patient has significant lactic acidosis Continue broad-spectrum antibiotics [id number]- [id number] Follow-up with infectious disease for antibiotic regimen and management Severe metabolic acidemia Etiology secondary to lactic acidosis from shock, end-stage renal disease Patient's on bicarbonate drip, We will attempt hemodialysis on a 40 bicarbonate bath if patient can hemodynamically tolerate Risks and benefits of dialysis explained to the patient's family as stated above Continue treat underlying etiology of lactic acidosis 3. Encephalopathy, acute. Etiology is likely secondary to toxic metabolic Monitor 4. Dysphagia, status post percutaneous endoscopic gastrostomy. - hold tube feedings at this time 5. ESRD -unstable for HD 7. Atrial fibrillation, currently rate controlled. Continue medical management. -Off anticoagulation secondary to previous bleed We will follow up with cardiology. 8. Anemia. Continue to monitor hemoglobin and hematocrit levels. Continue Epogen -Consider blood transfusion with next hemodialysis 9. Mineral bone disease. Continue to monitor calcium and phosphorus levels. 10. History of breast cancer status post bilateral mastectomy. 11. Congestive heart failure. Continue medical management. 12. Diabetes. Continue Accu-Cheks and sliding scale. 13. History of Clostridium difficile colitis, status post treatment. 14. Gastrointestinal and deep venous thrombosis prophylaxis. Continue Protonix , SCD, heparin 15. Hypernatremia Resolved -Monitor Please note I spent over 40 minutes critical care time with this patient, Case was discussed with family, data scientist and counter tacker Problems: Subjective 24 Hr Interval Summary Free Text/Dictation Overnight the patient decompensated further with systolic pressures dropping to the 70s. Commission Broker and Dr. Alfonso were informed. The patient was placed on epinephrine drip was given multiple amps of bicarbonate. I was informed and made aware of the patient's conditions and recent orders. When I arrived at bedside early this morning the patient remained critically ill near eminent . I explained to the patient's daughter Lolly and her brother at bedside of the likely passing of her mother. The patient's family was unaccepting of their mother's current condition and demanded immediate dialysis. I informed the patient's family that given her systolic pressures in the 50s despite being on 4 pressors patient was unstable for hemodialysis. The patient's brother was unaccepting of this and was verbally aggressive and abusive, further demanding that more be done for his mother. I again informed the patient's family that everything was being done. I also informed him that we would have to initiate a code and perform chest compressions and possible shock. The patient's family at that point decided to make her DNR. Exam/Review of Systems Vital Signs Vitals Vital Signs Date Time Temp Pulse Resp B/P Pulse Ox O2 Delivery O2 Flow Rate FiO2 01/30/17 08:20 0 01/30/17 07:55 24 0 01/30/17 07:30 Mechanical Ventilator 01/30/17 05:20 100 01/30/17 04:00 98.1 Intake and Output 01/29/17 01/29/17 01/30/17 15:00 23:00 07:00 Intake Total 2271.20 ml 1889.20 ml 1904.80 ml Output Total 500 ml 0 ml 0 ml Balance 1771.20 ml 1889.20 ml 1904.80 ml Exam General, patient critically ill on pressor support full ventilatory support HEENT: Head is normocephalic, NECK: Supple. Positive trach HEART: Irregular LUNGS: Show diminished breath sounds at base. ABDOMEN: Soft, distended no obvious rebound or guarding EXTREMITIES: Negative for clubbing, cyanosis. DERMATOLOGIC: No rashes. MUSCULOSKELETAL: No joint effusions, NEUROLOGIC: No change in exam. Patient obtunded Results Result Diagram: 01/30/17 0400 01/30/17 0400 Results 24 hrs Laboratory Tests Test 01/29/17 11:38 01/29/17 15:49 01/29/17 16:43 01/29/17 17:00 Bedside Glucose 265 H 211 Lactic Acid Level > 24.0 *H Blood Gas Specimen Source Blood arterial Arterial Blood Date Drawn 01/29/2017 5:30:04 PM Arterial Blood pH (Temp corrected) 7.053 *L Arterial Blood pCO2 (Temp correct) 52.3 H Arterial Blood pO2 (Temp corrected) 73.7 L Arterial Blood HCO3 14.2 L Arterial Blood Base Excess -15.7 L Arterial Blood Oxygen Saturation 87.4 L Ivan Test N/A Arterial Blood Gas Puncture Site A-Line Arterial Blood Carboxyhemoglobin 0.3 Arterial Blood Methemoglobin 0.4 Blood Gas A-a O2 Differential 587.0 H Oxyhemoglobin Percent 86.8 L Total Hemoglobin 10.6 L Blood Gas Temperature 37.0 Blood Gas Respiration Rate 20.0 Blood Gas Actual Respiration Rate 20 Blood Gas Modality VENT - BIPHASIC FiO2 100.0 Blood Gas Inspiratory Time 1.5 Blood Gas High PEEP Setting 30.0 Blood Gas Low PEEP Setting 15.0 Blood Gas Critical Value Read Back Jania NEUMANN Blood Gas Notified Whom Annette ARTEAGA Blood Gas Notified Time 01/29/2017 5:42:30 PM Test 01/29/17 17:01 01/29/17 17:05 01/29/17 17:49 01/29/17 19:55 Sodium Level 142 Potassium Level 3.6 Chloride Level 83 #L Carbon Dioxide Level 15 L Anion Gap 48 H Blood Urea Nitrogen 27 #H Creatinine 1.74 #H Glucose Level 220 Calcium Level 7.2 L Total Bilirubin 0.3 Direct Bilirubin 0.10 Indirect Bilirubin 0.2 Aspartate Amino Transf (AST/SGOT) 1862 H Alanine Aminotransferase (ALT/SGPT) 232 H Alkaline Phosphatase 107 Total Protein 8.3 H Albumin 3.8 Globulin 4.50 H Albumin/Globulin Ratio 0.84 White Blood Count 24.5 H Red Blood Count 3.15 L Hemoglobin 8.8 L Hematocrit 30.7 L Mean Corpuscular Volume 97.5 Mean Corpuscular Hemoglobin 27.9 L Mean Corpuscular Hemoglobin Concent 28.7 L Red Cell Distribution Width 21.0 H Platelet Count 254 Mean Platelet Volume 12.5 H Neutrophils % 85.4 H Lymphocytes % 5.3 L Monocytes % 5.1 Eosinophils % 0.0 Basophils % 0.2 Nucleated Red Blood Cells % 6.6 H Neutrophils # 21.0 H Lymphocytes # 1.3 Monocytes # 1.3 H Eosinophils # 0.0 Basophils # 0.0 Nucleated Red Blood Cells # 1.6 H Bedside Glucose 177 194 Test 01/30/17 00:13 01/30/17 04:00 01/30/17 04:49 01/30/17 06:00 Bedside Glucose 225 H 214 White Blood Count 32.1 #H Red Blood Count 3.07 L Hemoglobin 8.8 L Hematocrit 31.1 L Mean Corpuscular Volume 101.3 H Mean Corpuscular Hemoglobin 28.7 L Mean Corpuscular Hemoglobin Concent 28.3 L Red Cell Distribution Width 21.2 H Platelet Count 230 Mean Platelet Volume 12.4 H Neutrophils % Segmented Neutrophils % (Manual) 88 H Band Neutrophils % (Manual) 1 Lymphocytes % Lymphocytes % (Manual) 6 L Monocytes % Monocytes % (Manual) 3 Eosinophils % (Manual) 2 Nucleated Red Blood Cells % 12 H Neutrophils # Neutrophils # (Manual) 28.3 H Band Neutrophils # 0.3 Absolute Lymphocytes (Manual) 1.9 Lymphocytes # Monocytes # Absolute Monocytes (Manual) 0.9 Smudge Cells % 20 H Thrombocytosis 45 H Platelet Estimate NORMAL Poikilocytosis 3+ Anisocytosis 2+ Macrocytosis 1+ Sodium Level 138 Potassium Level 3.7 Chloride Level 80 L Carbon Dioxide Level 14 L Anion Gap 48 H Blood Urea Nitrogen 28 H Creatinine 2.04 H Glucose Level 230 H Lactic Acid Level > 24.0 *H Calcium Level 6.6 L Phosphorus Level 7.3 H Magnesium Level 1.6 L Blood Gas Specimen Source Blood arterial Blood arterial Arterial Blood Date Drawn 01/30/2017 4:43:17 AM 01/30/2017 5:52:48 AM Arterial Blood pH (Temp corrected) 6.970 *L 6.943 *L Arterial Blood pCO2 (Temp correct) 58.4 H 65.9 H Arterial Blood pO2 (Temp corrected) 47.4 *L 59.3 L Arterial Blood HCO3 13.1 L 13.9 L Arterial Blood Base Excess -18.2 L -18.0 L Arterial Blood Oxygen Saturation 63.4 L 75.0 L Ivan Test N/A N/A Arterial Blood Gas Puncture Site A-Line A-Line Arterial Blood Carboxyhemoglobin 0.3 0.3 Arterial Blood Methemoglobin 0.5 0.6 Blood Gas A-a O2 Differential 607.2 H 587.8 H Oxyhemoglobin Percent 62.9 L 74.3 L Total Hemoglobin 10.2 L 10.2 L Blood Gas Temperature 37.0 37.0 Blood Gas Respiration Rate 20.0 20.0 Blood Gas Actual Respiration Rate 20 20 Blood Gas Modality VENT - BIPHASIC VENT - BIPHASIC FiO2 100.0 100.0 Blood Gas Inspiratory Time 1.5 1.5 Blood Gas Tidal Volume 402.0 390.0 Blood Gas High PEEP Setting 30.0 30.0 Blood Gas Low PEEP Setting 15.0 15.0 Blood Gas Critical Value Read Back ANAYELI MELVINRN Blood Gas Notified Whom BR BR Blood Gas Notified Time 01/30/2017 4:54:13 AM 01/30/2017 6:00:34 AM Blood Gas Inspiratory Pressure 32.0 Blood Gas Pressure Support 10 Medications Medications Current Medications Acetaminophen (Tylenol Liquid) 650 mg Q4H PRN GTB PAIN OR TEMP ABOVE 38C Last administered on 01/23/17 04:56; Admin Dose 650 MG; Start 01/07/17 at 13:00 Diphenhydramine HCl (Benadryl) 25 mg Q6H PRN GTB ITCHING Last administered on 05:10; Admin Dose 25 MG; Start 01/07/17 at 13:00 Multivit/Ca Carb/ B Cmplx/FA/Prenat (Macrina-Brigitte) 1 tab DAILY GTB Last administered on 01/29/17 10:13; Admin Dose 1 TAB; Start 01/08/17 at 09:00 Ondansetron HCl (Zofran Tab) 4 mg Q4H PRN GTB NAUSEA AND/OR VOMITING Last administered on 01/23/17 13:25; Admin Dose 4 MG; Start 01/07/17 at 13:00 Miscellaneous Information 1 ea NOTE XX ; Start 01/07/17 at 23:45 Glucose (Glutose) 15 gm Q15M PRN PO DECREASED GLUCOSE; Start 01/07/17 at 23:45 Glucose (Glutose) 22.5 gm Q15M PRN PO DECREASED GLUCOSE; Start 01/07/17 at 23:45 Dextrose (D50w Syringe) 25 ml Q15M PRN IV DECREASED GLUCOSE Last administered on 01/29/17 01:42; Admin Dose 25 ML; Start 01/07/17 at 23:45 Dextrose (D50w Syringe) 50 ml Q15M PRN IV DECREASED GLUCOSE Last administered on 01/28/17 22:45; Admin Dose 50 ML; Start 01/07/17 at 23:45 Glucagon (Glucagen) 1 mg Q15M PRN IM DECREASED GLUCOSE; Start 01/07/17 at 23:45 Glucose (Glutose) 15 gm Q15M PRN BUCCAL DECREASED GLUCOSE; Start 01/07/17 at 23: 45 Miscellaneous Information (Pending [facility] Order For Wound Care) This patient lopez... PRN PRN XX WOUND CARE; Start 01/08/17 at 07:30 Insulin Aspart (Novolog Insulin Pen) NOVOLOG *MILD* ALGORI... Q6 SC Last administered on 01/27/17 12:09; Admin Dose 2 UNIT; Start 01/08/17 at 12:00 Heparin Sodium (Porcine) (Heparin (5000 Units/0.5 ml)) 5,000 unit BID SC Last administered on 01/29/17 21:29; Admin Dose 5,000 UNIT; Start 01/10/17 at 21:00 Lorazepam (Ativan) 1 mg Q6H PRN PO Agitation Last administered on 01/19/17 08: 10; Admin Dose 1 MG; Start 01/10/17 at 13:30; Status Future Hold Escitalopram Oxalate 10 mg 10 mg DAILY GTB Last administered on 01/29/17 10:13 ; Admin Dose 10 MG; Start 01/13/17 at 09:00 Norepinephrine/ Dextrose (Levophed/D5W) 500 ml @ 1.87 mls/hr TITRATE IV Last administered on 01/30/17 05:07; Admin Dose 56.25 MLS/HR; Start 01/15/17 at 23:45 Midodrine (Proamatine) 10 mg BID@09,17 NGT Last administered on 01/29/17 17:47 ; Admin Dose 10 MG; Start 01/18/17 at 09:00 Oxycodone HCl (Roxicodone) 5 mg Q4H PRN PO PAIN Last administered on 7/22/17at 09:15; Admin Dose 5 MG; Start 01/18/17 at 12:00 IV Flush (NS 10 ml) 10 ml PRN PRN IV IV PROTOCOL; Start 01/19/17 at 17:00 Metronidazole 500 mg 500 mg Q8 NGT Last administered on 01/30/17 05:56; Admin Dose 500 MG; Start 01/23/17 at 14:00 Fentanyl 100 ml @ 2.5 mls/hr TITRATE IV Last administered on 01/29/17 14:41; Admin Dose 5 MLS/HR; Start 01/28/17 at 09:30 Meropenem/Sodium Chloride (Merrem 500mg/50 ml(Pmx)) 50 ml @ 100 mls/hr Q12 IVPB Last administered on 01/29/17 21:28; Admin Dose 100 MLS/HR; Start at 14:00 Linezolid 600 mg 600 mg BID PO Last administered on 01/29/17 21:28; Admin Dose 600 MG; Start 01/28/17 at 12:30 Midazolam HCl (Versed) 50 ml @ 1 mls/hr TITRATE IV Last administered on 14:39; Admin Dose 4 MLS/HR; Start 01/28/17 at 19:30 Methylprednisolone Sodium Succinate 60 mg 60 mg Q6 IV Last administered on 01/30 05:56; Admin Dose 60 MG; Start 01/29/17 at 00:00 Sodium Bicarbonate 150 meq/Dextrose 1,150 ml @ 100 mls/hr [id number] IV Last administered on 01/29/17 22:40; Admin Dose 100 MLS/HR; Start 01/29/17 at 09:00 Phenylephrine HCl 160 mg/Dextrose 500 ml @ 18.75 mls/ hr TITRATE IV Last administered on 01/30/17 00:43; Admin Dose 56.25 MLS/HR; Start 01/29/17 at 07: 00 Vasopressin 60 unit/Dextrose 60 ml @ 1.2 mls/hr Q12H IV Last administered on 04:39; Admin Dose 2.4 MLS/HR; Start 01/29/17 at 09:00 Caspofungin 50 mg/ Sodium Chloride 250 ml @ 250 mls/hr Q24H IVPB ; Start at 14:30 Epinephrine/ Dextrose (EPINEPHrine/D5W) 250 ml @ 0 mls/hr TITRATE IV Last administered on 01/30/17t 05:50; Admin Dose 7.5 MLS/HR; Start 01/30/17 at 05:30 CHARLIE BUSBY DO Jan 30, 2017 09:24 CHARLIE BUSBY DO Jan 30, 2017 09:24
[2017-01-30] MEDS ORDERED: CASPOFUNGIN 50 MG in SOD CHLORIDE 0.9% 250 ML IVPB SCH (14:30)
--- NOTE | 2017-02-01 17:43 | PN ---
DATE: 01/26/2017 SUBJECTIVE DATA: Discussed with the patient previous cardiology doctor, Dr. Tacho Meadows, as well. The patient remains status post tracheostomy on the vent. Currently at this moment he is being taken off Levophed drip. Blood pressure on the low side but stable. He still requires to be on high flow oxygen 80 percent status post trach. No reported chest pain or pressure. MEDICATIONS: Reviewed. PHYSICAL EXAM: VITAL SIGNS: Temperature 99.4, T max 99.6, heart rate 95, blood pressure 113/53, respiratory rate 27, saturation 97 percent. HEENT: Normocephalic, atraumatic. Eyes: Pupils are equal. NECK: Supple, trach on the vent. CARDIOVASCULAR: Regular rate. PULMONARY: Diffuse rhonchi throughout the lungs. GI: Soft and nontender. EXTREMITIES: Very trivial lower extremity edema. NEUROLOGIC: He was awake, responds appropriately. PSYCHIATRIC: Calm now. LABORATORY AND DIAGNOSTIC DATA: WBC 10.4, hemoglobin 8.1, platelets 150,000. Sodium 138, potassium 4.1, BUN 54, creatinine 1.87, glucose 119, magnesium 1.7. ASSESSMENT AND PLAN: 1. Severe hypoxemic respiratory failure, chronic hypoxia despite very high oxygen. Status post tracheostomy. 2. Paroxysmal atrial fibrillation. Has remained in sinus rhythm with sick sinus syndrome on pacemaker. 3. Renal failure on dialysis. 4. Severe anemia, status post multiple transfusions. 5. Severe hypoxemia. 6. Shock with sepsis. Blood pressure currently improved. 7. Pulmonary hypertension. PA pressure about 75 mmHg on echo. 8. Evidence of right to left shunting, most likely through AST or PFO. RECOMMENDATIONS: Will continue with the current cardiac care. Consider transfusion. Given the patient's severe hypoxemia, will call for PE and management that was previously negative. Dialysis will be continued and the patient will be dialyzed again today. Offload amiodarone due to severe hypoxemia. ICU care will be continued. Vent support will be continued. I spent 38 minutes of critical care time evaluating the patient and explaining procedures. Dictated By: Jai Mays MD /vivi/enoc /Document#: [id number]
== END 2017-01-30 08:50 | disposition expired | DRG 870 ==
LOC: E/R 03:10 → TEL 12:43 → ICU 01-11 09:15
PROVIDERS: ADMIT Internal Medicine; ATTEND Internal Medicine
PROC: 5A1955Z Respiratory Ventilation, Greater than 96 Consecutive Hours (ICD-10-PCS; principal; 2017-01-07)
PROC: 5A1D60Z (ICD-10-PCS; 2017-01-07)
PROC: 30233N1 Transfusion of Nonautologous Red Blood Cells into Peripheral Vein, Percutaneous Approach (ICD-10-PCS; 2017-01-15)
PROC: 02HV33Z Insertion of Infusion Device into Superior Vena Cava, Percutaneous Approach (ICD-10-PCS; 2017-01-19)
DX: A41.9 Sepsis, unspecified organism (principal); J96.21 Acute and chronic respiratory failure with hypoxia; G92 Toxic encephalopathy; R65.21 Severe sepsis with septic shock; J18.9 Pneumonia, unspecified organism; I13.2 Hypertensive heart and chronic kidney disease with heart failure and with stage 5 chronic kidney disease, or end stage renal disease; Z99.11 Dependence on respirator [ventilator] status; L89.312 Pressure ulcer of right buttock, stage 2; N18.6 End stage renal disease; N39.0 Urinary tract infection, site not specified; B37.49 Other urogenital candidiasis; Q21.1 Atrial septal defect; L89.323 Pressure ulcer of left buttock, stage 3; L89.313 Pressure ulcer of right buttock, stage 3; L89.322 Pressure ulcer of left buttock, stage 2; Z93.0 Tracheostomy status; E11.649 Type 2 diabetes mellitus with hypoglycemia without coma; I48.91 Unspecified atrial fibrillation; E16.2 Hypoglycemia, unspecified; D64.9 Anemia, unspecified; Z85.3 Personal history of malignant neoplasm of breast; T17.990A Other foreign object in respiratory tract, part unspecified in causing asphyxiation, initial encounter; R13.10 Dysphagia, unspecified; Z79.02 Long term (current) use of antithrombotics/antiplatelets; E87.6 Hypokalemia; Z95.0 Presence of cardiac pacemaker; L89.891 Pressure ulcer of other site, stage 1; Z93.1 Gastrostomy status; B95.2 Enterococcus as the cause of diseases classified elsewhere; F41.9 Anxiety disorder, unspecified; B95.7 Other staphylococcus as the cause of diseases classified elsewhere; I50.9 Heart failure, unspecified; E87.70 Fluid overload, unspecified; Z99.2 Dependence on renal dialysis; I27.2 Other secondary pulmonary hypertension; R19.7 Diarrhea, unspecified
CPT/HCPCS: 36415; 36430; 36569; 36600; 71010; 71275; 74000; 76937; 80048; 80053; 81001; 82306; 82533; 82652; 82785; 82803; 82947; 82962; 83605; 83735; 83880; 84100; 84145; 84484; 85025; 85610; 85730; 86606; 86635; 86850; 86870; 86900; 86901; 86920; 87040; 87045; 87070; 87075; 87081; 87086; 89220; 90935; 93005; 93306; 94002; 94003; 94640; 94664; 96374; 96375; 97110; 97162; 97530; J0171; J0696; J1265; J1644; J1815; J1940; J2060; J2185; J2370; J2930; J3010; J7040; J7042; J7050; J7060; J7070; P9016; P9047; Q4081; Q9967